=== PATIENT | female | born 1955 ===

== ENCOUNTER → 2020-07-10 08:06 | Outpatient (REF) | payer OTHER, SELFPAY ==
--- NOTE | 2020-07-10 | NM_ITS ---
Lexiscan Myocardial perfusion study Indication: Cardiomyopathy, assess for coronary disease and ischemia Technique: The patient was brought in for a Lexiscan perfusion study on 07/10/2020 and was injected 0.4 mg of Lexiscan intravenously. Within a minute of this injection 25 mCi of sestamibi was given intravenously. Images were obtained using the SPECT gamma camera interlaced with the gating device. Images were obtained in supine position. Resting perfusion study was performed on 07/11/2020. Patient was administered 25 mCi of sestamibi intravenously at rest. Images were then obtained in supine position. Total DLP 136mGy-cm. Images were processed with the software and compared side to side in short axis, horizontal long axis and vertical long axis views. Findings: Raw acquisition was reviewed. The stress perfusion study showed mildly diminished tracer uptake at the apex but otherwise unremarkable. With CT attenuation correction this is still persisting. The gated study shows normal LV systolic function with calculated LVEF of 56%. LV cavity is normal in size. The gated study shows normal wall thickening and contraction of segments. Resting study shows no significant perfusion abnormality. Gating at rest reveals normal wall motion with ejection fraction at 59%. The findings are consistent with mild reversible defect at the apex but with normal contractility. Possibly artifactual. NM/NM pedro perf SPECT rest & str Impression: 1. Myocardial perfusion imaging study shows mild apical reversible defect that could be artifactual as the regional contractility is normal. Less likely to be a small nontransmural infarct. 2. Gated LVEF is 56% during stress and 59% during rest. 3. Transient ischemic dilatation not present. EKG component of the test reported separately.
--- NOTE | 2020-07-10 08:30 | CA_ITS ---
Acquisition Time: 2020-07-10 08:29:17 Total Exercise Time: 00:02:00 Test Indications: Dyspnea Medications: SEE H Protocol: LEXISCAN Max HR: 123 BPM 79% of Pred: 154 BPM Max BP: 124/066 mmHG Max Work Load: 1.0 METS Pharmacological stress test using Lexiscan while sitting and kicking her legs. Pt tolerated well, denies any anginal sx. Occasional PVC's seen after lexiscan. Mild ST depresions seen infriorly and lateraly, ST depressions more pronanced after Lexiscan, however no anginal sx. Nuclear images to follow. Normotensive response to test. Test reviewed with Dr. Joyce. Referred By: Orlando Perkins Overread By: Kirby Bullard
== END ==
LOC: HO.CARD 08:06
PROVIDERS: PCP Internal Medicine; Visit Provider Internal Medicine Cardiovascular Disease
DX: I51.7 Cardiomegaly (principal)
CPT/HCPCS: 78452; 93017; A9500; J0280; J2785

== ENCOUNTER 2020-10-22 13:31 | Outpatient (REF) | payer OTHER, SELFPAY ==
--- NOTE | ~2020-10-22 | MM_ITS ---
EXAMINATION: MM SCREENING DIGITAL BREAST TOMOSYNTHESIS, BILATERAL CLINICAL INFORMATION: Screening. Asymptomatic. The lifetime risk of breast cancer based on the Tyrer-Cuzick Model is 4%. COMPARISON: Mammography: 09/23/2019, 07/04/2016 TECHNIQUE: Digital breast tomosynthesis is performed in both the craniocaudal and mediolateral oblique views along with computer-aided detection (CAD). Synthesized 2D images are generated from the tomosynthesis. FINDINGS: There are scattered areas of fibroglandular density (ACR BI-RADS breast composition Category b). There are no significant masses, abnormal calcifications, or other abnormalities. The axilla and skin contours are unremarkable. No significant changes. MM/MM tomosynthesis screening BI IMPRESSION: No mammographic evidence of malignancy. ASSESSMENT: BI-RADS 1: Negative RECOMMENDATION: Routine annual mammography screening. This patient's information was entered into a reminder system with a target due date for their next mammogram.
== END 2020-10-22 13:32 | disposition home or self-care (01) ==
LOC: HO.MAMMO 13:31
PROVIDERS: Visit Provider Internal Medicine
DX: Z12.31 Encounter for screening mammogram for malignant neoplasm of breast (principal)
CPT/HCPCS: 77063; 77067

== ENCOUNTER 2021-08-21 15:30 | Outpatient (REF) | payer OTHER, SELFPAY ==
--- NOTE | ~2021-08-21 | CT_ITS ---
EXAMINATION: CT CHEST SCREENING CLINICAL INFORMATION: Smoking history. 4 packs per day. 53 year smoking history. COMPARISON: Previous chest CT September 2019 TECHNIQUE: Multidetector volumetric CT imaging of the chest is performed without contrast using low dose technique. Additional 2D coronal and sagittal reformatted images and axial 3D maximum intensity projection (MIP) images are generated on the CT workstation. This CT examination was performed using dose optimization techniques as appropriate, variously including the following: *Automated exposure control *Adjustment of mA and/or kV according to patient size (this includes techniques or standardized protocols for targeted exams where dose is matched to indication/reason for exam; i.e. extremities or head) *Use of iterative reconstruction technique DLP: 51 mGy-cm FINDINGS: LUNGS: There is evidence of emphysema. There is left apical pleural and parenchymal scarring that is stable. Small calcified pulmonary nodules are stable. No new pulmonary nodule is seen. No endobronchial or endotracheal lesion is seen. MEDIASTINUM: There is mild coronary artery and aortic valve calcification. The mediastinum is otherwise normal. PLEURA: There is no pleural effusion. No pleural mass or thickening. AXILLA: No lymphadenopathy. UPPER ABDOMEN: Unremarkable OSSEOUS STRUCTURES: There are degenerative changes of the spine. CT/CT lung screening IMPRESSION: Emphysema. Stable small calcified pulmonary nodules or micronodules. Coronary artery and aortic valve calcification. ASSESSMENT: Lung-RADS category 2: Benign RECOMMENDATION: Annual low-dose chest CT follow-up recommended.
== END 2021-08-21 15:31 | disposition home or self-care (01) ==
LOC: HO.CT 15:30
PROVIDERS: Visit Provider Physician Assistant Medical
DX: Z12.2 Encounter for screening for malignant neoplasm of respiratory organs (principal); F17.210 Nicotine dependence, cigarettes, uncomplicated
CPT/HCPCS: 71271

== ENCOUNTER → 2021-08-29 10:05 | Outpatient (BNVA) | payer OTHER, SELFPAY | PROVIDERS: PCP Internal Medicine; Referring Provider Internal Medicine; Visit Provider Physician Assistant | DX: R15.9 Full incontinence of feces (principal); Z80.0 Family history of malignant neoplasm of digestive organs | CPT/HCPCS: 99202 ==

== ENCOUNTER 2021-10-24 15:29 | Outpatient (REF) | payer OTHER, SELFPAY ==
--- NOTE | ~2021-10-24 | MM_ITS ---
EXAMINATION: MM SCREENING DIGITAL BREAST TOMOSYNTHESIS, BILATERAL CLINICAL INFORMATION: Screening. Asymptomatic. The lifetime risk of breast cancer based on the Tyrer-Cuzick Model is 2.0%. COMPARISON: Mammography: October 22, 2020 and studies dating back to August 22, 2014 TECHNIQUE: Digital breast tomosynthesis is performed in both the craniocaudal and mediolateral oblique views along with computer-aided detection (CAD). Synthesized 2D images are generated from the tomosynthesis. FINDINGS: There are scattered areas of fibroglandular density (ACR BI-RADS breast composition Category b). There are no significant masses, abnormal calcifications, or other abnormalities. MM/MM tomosynthesis screening BI IMPRESSION: There are no significant changes from prior study. ASSESSMENT: BI-RADS 1: Negative RECOMMENDATION: Routine annual mammography screening. This patient's information was entered into a reminder system with a target due date for their next mammogram.
== END 2021-10-24 15:30 | disposition home or self-care (01) ==
LOC: HO.MAMMO 15:29
PROVIDERS: PCP Internal Medicine; Visit Provider Internal Medicine
DX: Z12.31 Encounter for screening mammogram for malignant neoplasm of breast (principal)
CPT/HCPCS: 77063; 77067

== ENCOUNTER 2021-12-27 10:00 | Day surgery (SDC) | payer OTHER, SELFPAY ==
[2021-12-20 10:58] VITALS: BMI 27.8
--- NOTE | 2021-12-26 13:40 | P.CONAN_ITS ---
Documented by User: Cindy Ascencio NP 12/26/21 13:41 HPI - Anesthesia Eval Consult details Narrative: 66yo F for Colonoscopy PMFSH Active Problems Active Problems: All Active Problems (Updated 12/20/21 @ 10:52 by Lilia Molina, EUSEBIO) Frequent fecal incontinence (Acute) Diabetes (Acute) HTN (hypertension) (Acute) Dyslipidemia (Acute) Anxiety (Acute) Family history of colon cancer (Acute) Past Medical History Medical History COPD (chronic obstructive pulmonary disease) Diabetes Elevated cholesterol HTN (hypertension) Osteoporosis PVD (peripheral vascular disease) Family History Family History (Updated 08/29/21 @ 10:41 by Trisha Young PA-C) Brother Colon cancer Surgical History Surgical History H/O colonoscopy History of bunionectomy History of hysterectomy History of pubovaginal sling Social History Social History Household Members: None Alcohol intake: never Patient Tobacco Use Status: Current everyday Tobacco user Tobacco use type: Cigarette Cigarettes Per Day: 15 Advance Directives: No Advance Directives Information Provided: Yes Meds Allergies Allergy/AdvReac Type Severity Reaction Status Date / Time ciprofloxacin [From CIPRO] Allergy Severe ANAPHYLAXIS Unverified 12/20/21 10:44 Home Medications Medication Instructions Recorded Confirmed Last Taken Type aspirin 81 mg tablet,delayed 81 mg PO DAILY 08/29/21 12/20/21 Unknown History release atorvastatin 40 mg tablet 40 mg PO BEDTIME 08/29/21 12/20/21 Unknown History calcium carbonate 600 mg-vitamin 1 tab PO BEDTIME 08/29/21 12/20/21 Unknown History D3 10 mcg (400 unit) tablet cilostazol 50 mg tablet 50 mg PO BID 08/29/21 12/20/21 Unknown History fluoxetine 40 mg capsule 40 mg PO BEDTIME 08/29/21 12/20/21 Unknown History fluticasone 250 mcg-salmeterol 50 1 ea inhalation BID 08/29/21 12/20/21 Unknown History mcg/dose blistr powdr for inhalation gabapentin 300 mg capsule 300 mg PO DAILY 08/29/21 12/20/21 Unknown History hydralazine 25 mg tablet 25 mg PO BID 08/29/21 12/20/21 Unknown History hydroxyzine pamoate 25 mg capsule 25 mg PO TID 08/29/21 12/20/21 Unknown History insulin glargine 100 unit/mL 10 unit subcut BEDTIME 08/29/21 12/20/21 Unknown History subcutaneous solution (Lantus U-100 Insulin) insulin syringe-needle U-100 1/2 #10 ea 08/29/21 Unknown History mL 31 gauge x 15/64 (BD Veo Insulin Syringe Ultra-Fine) lisinopril 40 mg tablet 40 mg PO DAILY 08/29/21 12/20/21 Unknown History metformin 1,000 mg tablet 1,000 mg PO BID 08/29/21 12/20/21 Unknown History metoprolol tartrate 25 mg tablet 25 mg PO BID 08/29/21 12/20/21 Unknown History nitrofurantoin 1 cap PO Q12H 08/29/21 12/20/21 Unknown History monohydrate/macrocrystals 100 mg capsule omeprazole 20 mg capsule,delayed 20 mg PO DAILY 08/29/21 12/20/21 Unknown History release sitagliptin 50 mg tablet (Januvia) 50 mg PO DAILY 08/29/21 12/20/21 Unknown History umeclidinium 62.5 mcg/actuation 1 inh inhalation DAILY 08/29/21 12/20/21 Unknown History blister powder for inhalation (Incruse Ellipta) Exam Exam Date and Time: December 26, 2021 1340 Height,Weight and Vital Signs: Height 5 ft 5 in Weight 76 kg Assessment and Plan Assessment Anesthesia Assessment: Chart Reviewed Documented by User: Chelsea Birch MD 12/27/21 10:28 [facility] Past Medical History Medical History COPD (chronic obstructive pulmonary disease) Diabetes Elevated cholesterol HTN (hypertension) Osteoporosis PVD (peripheral vascular disease) Family History Family History (Updated 08/29/21 @ 10:41 by Trisha Young PA-C) Brother Colon cancer Family history of problems with anesthesia: No Surgical History Surgical History H/O colonoscopy History of bunionectomy History of hysterectomy History of pubovaginal sling History of Problems with Anesthesia: No Social History Social History Household Members: None Alcohol intake: never Patient Tobacco Use Status: Current everyday Tobacco user Tobacco use type: Cigarette Cigarettes Per Day: 15 Advance Directives: No Advance Directives Information Provided: Yes Meds Allergies Allergy/AdvReac Type Severity Reaction Status Date / Time ciprofloxacin [From CIPRO] Allergy Severe ANAPHYLAXIS Unverified 12/20/21 10:44 Home Medications Medication Instructions Recorded Confirmed Last Taken Type aspirin 81 mg tablet,delayed 81 mg PO DAILY 08/29/21 12/20/21 Unknown History release atorvastatin 40 mg tablet 40 mg PO BEDTIME 08/29/21 12/20/21 Unknown History calcium carbonate 600 mg-vitamin 1 tab PO BEDTIME 08/29/21 12/20/21 Unknown History D3 10 mcg (400 unit) tablet cilostazol 50 mg tablet 50 mg PO BID 08/29/21 12/20/21 Unknown History fluoxetine 40 mg capsule 40 mg PO BEDTIME 08/29/21 12/20/21 Unknown History fluticasone 250 mcg-salmeterol 50 1 ea inhalation BID 08/29/21 12/20/21 Unknown History mcg/dose blistr powdr for inhalation gabapentin 300 mg capsule 300 mg PO DAILY 08/29/21 12/20/21 Unknown History hydralazine 25 mg tablet 25 mg PO BID 08/29/21 12/20/21 Unknown History hydroxyzine pamoate 25 mg capsule 25 mg PO TID 08/29/21 12/20/21 Unknown History insulin glargine 100 unit/mL 10 unit subcut BEDTIME 08/29/21 12/20/21 Unknown History subcutaneous solution (Lantus U-100 Insulin) insulin syringe-needle U-100 1/2 #10 ea 08/29/21 Unknown History mL 31 gauge x 15/64 (BD Veo Insulin Syringe Ultra-Fine) lisinopril 40 mg tablet 40 mg PO DAILY 08/29/21 12/20/21 Unknown History metformin 1,000 mg tablet 1,000 mg PO BID 08/29/21 12/20/21 Unknown History metoprolol tartrate 25 mg tablet 25 mg PO BID 08/29/21 12/20/21 Unknown History nitrofurantoin 1 cap PO Q12H 08/29/21 12/20/21 Unknown History monohydrate/macrocrystals 100 mg capsule omeprazole 20 mg capsule,delayed 20 mg PO DAILY 08/29/21 12/20/21 Unknown History release sitagliptin 50 mg tablet (Januvia) 50 mg PO DAILY 08/29/21 12/20/21 Unknown History umeclidinium 62.5 mcg/actuation 1 inh inhalation DAILY 08/29/21 12/20/21 Unknown History blister powder for inhalation (Incruse Ellipta) Exam Airway Mallampati Class: II TM Dist: >3cm Neck ROM: Full Denture: Upper and Lower Heart: rrr Lungs: cta Assessment and Plan Assessment Anesthesia Assessment: Anesthesia Plan Discussed and Chart Reviewed Final Anesthetic Review Family History of Problems with Anesthesia: No History of Problems with Anesthesia: No NPO: Yes ASA Class: III Final Preanesthetic Review: No Changes in Pt Med Stat, Meds/Allgs Chart Reviewed and Consent Obtained/Reviewed Patient Risk: Intermediate Procedure Risk: Intermediate Anesthetic Plan Anesthetic Plan: MAC: Disposition: Standard PACU
[2021-12-27 10:22] LABS: Glucose, Whole Blood 144 mg/dL (60-115)
[2021-12-27] MEDS: Lactated Ringers 1,000 ML 100 ML IVCONT (10:25)
[2021-12-27 10:26] VITALS: BP 164/60; PULSE 78; RESP 18; TEMP 36.2; O2SAT 96; BMI 28.3
--- NOTE | 2021-12-27 10:28 | MHC.SHP ---
Pre-Procedural Eval Section A Date of Service: 12/27/21 The patient is an INPATIENT: No The History & Physical has been completed within 30 days and I have reviewed it.: No Section B Chief Complaint: Screen, FH of colon cancer, FI Details of Present Illness: Colon cancer screening, fecal incontinence, family history of colon cancer Relevant Family History (Specify if Yes): Yes Relevant Social History: Tobacco Use Present Medications: see Short Stay Collaborative assessment Medical History: Significant History (Anxiety Family history of colon cancer) History of Previous Operations: Relevant previous surgery/procedure and date(s) (History of hysterectomy) Allergies: Allergies Allergy/AdvReac Type Severity Reaction Status Date / Time ciprofloxacin [From CIPRO] Allergy Severe ANAPHYLAXIS Unverified 12/20/21 10:44 Review of Systems Sugical H&P ROS: Negative: Constitution, Cardiovascular and Respiratory and Yes, Specify: Gastrointestinal (fecal incontinence) Exam Surgical H&P Exam: Normal: Heart, Normal: Lungs, Normal: Extremities and Normal: Abdomen Plan Diagnosis/Plan: Unchanged I have reviewed the history and physical and performed a pertinent physical examination on my patient. No changes have occurred unless specified.
--- NOTE | 2021-12-27 11:30 | PM.OP ---
Brief Operative Note Date of Service: 12/27/21 Pre-op diagnosis: Colon cancer screen, family history of colon, fecal incontinence Post-op diagnosis: other (Colon polyps, diverticulosis, hemorrhoids, lax anal sphincter) Procedure: COLONOSCOPY TILL CECUM WITH BIOPSIES, SNARE POLYPECTOMY AND SUBMUCOSAL INJECTION Consent: Indications for the procedure and potential complications of bleeding, perforation, reaction to medications and missed diagnosis were discussed with the patient and informed consent was obtained. Instrument: Olympus PCF H 190 L variable stiffness pediatric colonoscope Monitoring: Vital signs and clinical assessment, intermittent blood pressure monitoring, continuous EKG monitoring, Pulse oximetry and Carbon Dioxide monitoring were done throughout the procedure. Colon withdrawl time was 24 minutes. Procedure: The patient was placed in the left lateral decubitis position and pre-procedure medications were administered. After a digital rectal examination of the ano-rectum, the video colonoscope was inserted into the rectum and advanced through the colon to the cecum. The colonoscope was slowly withdrawn in a retrograde panoramic fashion and the colon mucosa was carefully examined including a retroflexed view of the rectum. Findings and interventions are described below. Procedure Difficulty: Without difficulty There was excessive spasm in the colon Findings: Terminal Ileum: Not evaluated Cecum: Normal Ascending Colon: A 2 - 2.5 cms sessile polyp at 90 cms - removed with a hot snare and polypectomy site was marked by jero ink. Scattered moderate diverticulosis throughout the colon. Transverse Colon: Scattered moderate diverticulosis throughout the colon. Descending Colon: Scattered moderate diverticulosis throughout the colon. Sigmoid Colon: Severe diverticulosis with luminal narrowing Rectum: Normal Ano-rectum: Moderate internal hemorrhoids Lax anal sphincter on rectal exam Colon preparation: Good after some irrigation Impression and Post Procedure Diagnosis: Colonoscopy Findings: One medium sized polyp removed. Random biopsies were obtained from the colon to check for microscopic colitis Moderate diverticulosis seen in the entire colon Moderate hemorrhoids on retroflexed exam. Lax anal sphincter on rectal exam Plan: Await pathology results [place] of a fibre supplement for diverticulosis Patient has an appointment on 01/09/22 in the GI Clinic with GERALDINE Reyna. If she continues to have fecal incontinence, she can be referred [place] [facility] with biofeedback. Repeat Colonoscopy interval based on path results - in 1 years if polyps are adenomatous to check polypectomy site in the AC. Above findings were reviewed with the patient and colon polyps and diverticulosis handouts were given in the discharge area Surgeon: Mario Lowe MD Anesthesia: MAC (Dr Escamilla) Was an Investigation Division Captain used for this Procedure?: Yes Investigation Division Captain: Williams Shultz Estimated blood loss (mL): 0 Pathology: other ( A- RIGHT COLON BXS R/O MICROSCOPIC COLITIS B- ASCENDING COLON POLYP AT 90CM C- LEFT COLON BXS R/O MICROSCOPIC COLITIS) Condition: stable Disposition: PACU
[2021-12-27 12:11] VITALS: BP 146/66; PULSE 78; RESP 16; TEMP 36.7; O2SAT 96
[2021-12-27 12:26] VITALS: BP 151/74; PULSE 79; RESP 16; TEMP 36.7; O2SAT 95
--- NOTE | 2021-12-30 18:04 | P.OP_ITS ---
Operative Note Operative Note Date of Service: 12/27/21 Narrative: Pre-op diagnosis: Colon cancer screen, family history of colon, fecal incontinence Post-op diagnosis:?other (Colon polyps, diverticulosis, hemorrhoids, lax anal sphincter) Procedure: COLONOSCOPY TILL CECUM WITH BIOPSIES, SNARE POLYPECTOMY AND SUBMUCOSAL INJECTION Consent: Indications for the procedure and potential complications of bleeding, perforation, reaction to medications and missed diagnosis were discussed with the patient and informed consent was obtained. Instrument: Olympus PCF H 190 L variable stiffness pediatric colonoscope Monitoring: Vital signs and clinical assessment, intermittent blood pressure monitoring, continuous EKG monitoring, Pulse oximetry and Carbon Dioxide monitoring were done throughout the procedure. Colon withdrawl time was 24 minutes. Procedure: The patient was placed in the left lateral decubitis position and pre-procedure medications were administered. After a digital rectal examination of the ano-rectum, the video colonoscope was inserted into the rectum and advanced through the colon to the cecum. The colonoscope was slowly withdrawn in a retrograde panoramic fashion and the colon mucosa was carefully examined including a retroflexed view of the rectum. Findings and interventions are described below. Procedure Difficulty: Without difficulty There was excessive spasm in the colon Findings: Terminal Ileum: Not evaluated Cecum:? Normal Ascending Colon:? A 2 - 2.5 cms sessile polyp at 90 cms - removed with a hot snare and polypectomy site was marked by jero ink. Scattered moderate diverticulosis throughout the colon. Transverse Colon:? Scattered moderate diverticulosis throughout the colon. Descending Colon:? Scattered moderate diverticulosis throughout the colon. Sigmoid Colon:? Severe diverticulosis with luminal narrowing Rectum:? Normal Ano-rectum:? Moderate internal hemorrhoids Lax anal sphincter on rectal exam Colon preparation:? Good after some irrigation Impression and Post Procedure Diagnosis: Colonoscopy Findings: One medium sized polyp removed. Random biopsies were obtained from the colon to check for microscopic colitis Moderate diverticulosis seen in the entire colon Moderate hemorrhoids on retroflexed exam. Lax anal sphincter on rectal exam Plan: Await pathology results [place] of a fibre supplement for diverticulosis Patient has an appointment on 01/09/22 in the GI Clinic with GERALDINE Reyna. If she continues to have fecal incontinence, she can be referred to [facility] [place] for anorectal manometry with biofeedback. Repeat Colonoscopy interval based on path results - in 1 years if polyps are adenomatous to check polypectomy site in the AC. Above findings were reviewed with the patient and colon polyps and diverticulosis handouts were given in the discharge area Surgeon: Mario Lowe MD Anesthesia:?MAC (Dr Escamilla) Was an Distillery Miller Helper used for this Procedure?:?Yes Distillery Miller Helper:?Williams Shultz Estimated blood loss (mL):?0 Pathology:?other ( A- RIGHT COLON BXS R/O MICROSCOPIC COLITIS? B- ASCENDING COLON POLYP AT 90CM? C- LEFT COLON BXS? R/O MICROSCOPIC COLITIS) Condition:?stable Disposition:?PACU
== END 2021-12-27 12:51 | disposition home or self-care (01) ==
PROVIDERS: PCP Internal Medicine; Visit Provider Internal Medicine Gastroenterology
PROC: 0DJD8ZZ Inspection of Lower Intestinal Tract, Via Natural or Artificial Opening Endoscopic (ICD-10-PCS; CPT 45378; principal; 2021-12-27 11:10)
DX: Z12.11 Encounter for screening for malignant neoplasm of colon (principal); Z80.0 Family history of malignant neoplasm of digestive organs; R15.9 Full incontinence of feces; R15.2 Fecal urgency; D12.2 Benign neoplasm of ascending colon; K63.89 Other specified diseases of intestine; K57.30 Diverticulosis of large intestine without perforation or abscess without bleeding; K64.8 Other hemorrhoids; F41.1 Generalized anxiety disorder; I10 Essential (primary) hypertension; E11.9 Type 2 diabetes mellitus without complications; Z79.4 Long term (current) use of insulin; Z79.51 Long term (current) use of inhaled steroids; Z88.1 Allergy status to other antibiotic agents; Z79.899 Other long term (current) drug therapy; F17.210 Nicotine dependence, cigarettes, uncomplicated
CPT/HCPCS: 45385; 45380; 45381; 82947; 88305

== ENCOUNTER 2022-01-02 10:32 | Outpatient (REF) | payer OTHER, SELFPAY ==
--- NOTE | ~2022-01-02 | MM_ITS ---
EXAMINATION: BONE DENSITOMETRY CLINICAL INDICATION: Menopausal. COMPARISON: Previous BD dated 09/23/2019 and baseline BD dated 08/22/2014. TECHNIQUE: Using a STEARCLEAR DXA System (software version: 13.1) manufactured by [employer], dual-energy x-ray absorptiometry was performed of the lumbar spine and left hip. The images are of good technical quality. Summary results are attached. FINDINGS: AP SPINE L1-L4: Current: BMD 0.910 g/cm2, Z-score -0.8, T-score -2.3, osteopenia, 2.0% decrease from previous, 1.0% decrease from baseline (<5% change is not significant). Prior: BMD 0.929 g/cm2. Baseline: BMD 0.919 g/cm2. LEFT FEMUR, NECK: Current: BMD 0.818 g/cm2, Z-score -0.1, T-score -1.6, osteopenia. Prior: BMD 0.816 g/cm2. Baseline: BMD 0.767 g/cm2. LEFT FEMUR, TOTAL: Current: BMD 0.756 g/cm2, Z-score -0.8, T-score -2.0, osteopenia, 1.8% decrease from previous, 4.7% increase from baseline (<5% change is not significant). Prior: BMD 0.770 g/cm2. Baseline: BMD 0.722 g/cm2. IDENTIFIED RISK FACTORS: Early menopause, secondary osteoporosis, hysterectomy, bilateral oophorectomy, height loss, history of fracture (adult), tobacco use (current smoker). HISTORY OF FRACTURE: Wrist. MEDICATIONS: Calcium supplements or multivitamin, vitamin D. MM/XR DEXA axial skeleton IMPRESSION: 1. DIAGNOSIS: Osteopenia based on the lowest T-score value of -2.3 in the lumbar spine applying World Health Organization criteria. 2. 10-YEAR FRACTURE RISK PREDICTION, FRAX: Major osteoporotic fracture (clinical spine, forearm, hip or shoulder) 9.3%. Hip fracture 1.9%. 3. Treatment Recommendations: NOF guidelines recommend consideration for treatment in postmenopausal women and men age 50 and older presenting with the following: -A hip or vertebral (clinical or morphometric) fracture. -T-score less than or equal to -2.5 at the femoral neck or spine after appropriate evaluation to exclude secondary causes. -Low bone mass at the hip or spine and a 10-year fracture probability by FRAX of greater than or equal to 3% for hip fracture or greater than or equal to 20% for major osteoporotic fracture based on the [place] adapted WHO algorithm. 4. Other Recommendations: All treatment decisions require clinical judgment and consideration of individual patient factors, including patient preferences, comorbidities, previous drug use, risk factors not captured in the FRAX model (e.g. frailty, falls, vitamin D deficiency, increased bone turnover, interval significant decline in bone density) and possible under or overestimation of fracture risk by FRAX. Additional medical evaluation for secondary cause of low bone mineral density may be appropriate. FUTURE SCAN RECOMMENDATION: People with diagnosed cases of osteoporosis or at high risk for fracture should have regular bone mineral density tests. For patients eligible for Medicare, routine testing is allowed once every 2 years. The testing frequency can be increased to one year for patients who have rapidly progressing disease, those who are receiving or discontinuing medical therapy to restore bone mass, or have additional risk factors.
== END 2022-01-02 10:33 | disposition home or self-care (01) ==
LOC: HO.MAMMO 10:32
PROVIDERS: Visit Provider Internal Medicine
DX: Z13.820 Encounter for screening for osteoporosis (principal); M81.0 Age-related osteoporosis without current pathological fracture; Z78.0 Asymptomatic menopausal state
CPT/HCPCS: 77080

== ENCOUNTER → 2022-01-09 09:04 | Outpatient (BNVA) | payer OTHER, SELFPAY | PROVIDERS: PCP Internal Medicine; Visit Provider Physician Assistant | DX: D12.2 Benign neoplasm of ascending colon (principal); K63.89 Other specified diseases of intestine; K57.30 Diverticulosis of large intestine without perforation or abscess without bleeding; K64.9 Unspecified hemorrhoids; R15.9 Full incontinence of feces; Z98.890 Other specified postprocedural states | CPT/HCPCS: 99212 ==

== ENCOUNTER 2022-01-28 08:00 | Outpatient (REF) | payer OTHER, SELFPAY ==
--- NOTE | 2022-01-28 | PFT_ITS ---
FLOWS: FEV1 67% of predicted at 1.65 L. FVC 100% of predicted at 3.14 L. FEV1 to FVC ratio of 0.52. No bronchodilator response except in small to medium airways. LUNG VOLUMES: Total lung capacity 106% of predicted at 5.51 L. Residual volume 114% of predicted at 2.51 L. Slow vital capacity 99% of predicted at 3.00 L. Expiratory reserve volume 118% of predicted at 0.92 L. Diffusion capacity is moderately decreased. IMPRESSION: Moderate obstructive ventilatory defect with no bronchodilator response except in small to medium airways. Decreased diffusion capacity suggests emphysema. Filipe Kwan MD AP/MODL / [id number]
== END 2022-01-28 08:01 | disposition home or self-care (01) ==
LOC: HO.RESP 08:00
PROVIDERS: PCP Internal Medicine; Visit Provider Internal Medicine
DX: J44.9 Chronic obstructive pulmonary disease, unspecified (principal); F17.200 Nicotine dependence, unspecified, uncomplicated; Z71.6 Tobacco abuse counseling
CPT/HCPCS: 94060; 94727; 94729; 99202

== ENCOUNTER → 2022-06-09 15:36 | Outpatient (BNVA) | payer OTHER, SELFPAY | PROVIDERS: PCP Internal Medicine; Visit Provider Internal Medicine | DX: J44.9 Chronic obstructive pulmonary disease, unspecified (principal); F17.210 Nicotine dependence, cigarettes, uncomplicated | CPT/HCPCS: 99212 ==

== ENCOUNTER → 2022-10-09 09:56 | Outpatient (BNVA) | payer OTHER, SELFPAY | PROVIDERS: PCP Registered Nurse; Visit Provider Internal Medicine | DX: J44.9 Chronic obstructive pulmonary disease, unspecified (principal); F17.210 Nicotine dependence, cigarettes, uncomplicated | CPT/HCPCS: 99212 ==

== ENCOUNTER 2022-10-14 10:02 | Outpatient (REF) | payer OTHER, SELFPAY ==
--- NOTE | ~2022-10-14 | CT_ITS ---
EXAMINATION: CT CHEST SCREENING CLINICAL INFORMATION: Current smoker. 54 pack year history. COMPARISON: Previous chest CT most recent August 2021 TECHNIQUE: Multidetector volumetric CT imaging of the chest is performed without contrast using low dose technique. Additional 2D coronal and sagittal reformatted images and axial 3D maximum intensity projection (MIP) images are generated on the CT workstation. This CT examination was performed using dose optimization techniques as appropriate, variously including the following: *Automated exposure control *Adjustment of mA and/or kV according to patient size (this includes techniques or standardized protocols for targeted exams where dose is matched to indication/reason for exam; i.e. extremities or head) *Use of iterative reconstruction technique DLP: 49 mGy-cm FINDINGS: LUNGS: There is evidence of emphysema. There is mild left apical pleural and parenchymal scarring. There are are heterogeneous small areas of increased attenuation and increased peripheral interstitial markings There are small calcified pulmonary nodules that are stable. There is a irregularly-shaped heterogeneous area in the peripheral or subpleural medial left lower lobe adjacent to the spine. Axial image 306 series 5. This is difficult to measure due to irregular shape. This measures 6 x 8mm based on central solid component and measures up to 1.7 cm in AP dimension sagittal reconstructed image 52 and axial image 306 series 5. This is is gradually increasing in density and size compared to previous exams from 2019 and 2021. No endobronchial or endotracheal lesion. MEDIASTINUM: The mediastinum is normal. CORONARY ARTERY CALCIFICATION: Mild PLEURA: There is no pleural effusion. No pleural mass or thickening. AXILLA: No lymphadenopathy. UPPER ABDOMEN: Atherosclerotic disease. OSSEOUS STRUCTURES: Healing right anterior fifth rib fracture. CT/CT lung screening IMPRESSION: Emphysema and probable mild interstitial disease. Interval increase in size and density of irregularly-shaped parenchymal density in the medial left lower lobe. PET/CT scan or tissue sampling recommended. Small stable calcified pulmonary nodules. ASSESSMENT: Lung-RADS category 4B: Suspicious RECOMMENDATION: PET/CT scan or tissue sampling recommended.
== END 2022-10-14 10:03 | disposition home or self-care (01) ==
LOC: HO.CT 10:02
PROVIDERS: PCP Registered Nurse; Visit Provider Physician Assistant Medical
DX: Z12.2 Encounter for screening for malignant neoplasm of respiratory organs (principal); F17.210 Nicotine dependence, cigarettes, uncomplicated
CPT/HCPCS: 71271

== ENCOUNTER → 2022-11-07 09:36 | Outpatient (BNVA) | payer OTHER, SELFPAY | PROVIDERS: PCP Registered Nurse; Visit Provider Surgery | DX: R91.1 Solitary pulmonary nodule (principal); F17.210 Nicotine dependence, cigarettes, uncomplicated; Z71.6 Tobacco abuse counseling | CPT/HCPCS: 99202 ==

== ENCOUNTER 2022-11-25 11:39 | Outpatient (REF) | payer OTHER, SELFPAY ==
--- NOTE | 2022-11-25 12:41 | PFT_ITS ---
Forced vital capacity is 105%, FEV1 62%, FEV1/FVC ratio 47. XHF51-51 is 22%. MVV 64%. Post bronchodilator therapy, there is a slight improvement in FEV1 and XNL45-54. Total lung capacity 101%. Residual volume 91%. Diffusion capacity 53%. CONCLUSION: Moderately severe obstructive airway disorder. There is only minimal improvement after bronchodilator therapy. Clinical correlation is recommended. MD ROE James/JESUS / [id number]
== END 2022-11-25 11:40 | disposition home or self-care (01) ==
LOC: HO.RESP 11:39
PROVIDERS: PCP Registered Nurse; Visit Provider Surgery
DX: R91.1 Solitary pulmonary nodule (principal)
CPT/HCPCS: 94010; 94727; 94729

== ENCOUNTER 2022-12-02 13:15 | Outpatient (REF) | payer OTHER, SELFPAY ==
--- NOTE | ~2022-12-02 | PE_ITS ---
EXAMINATION: Fluorine-18 FDG PET/CT Scan CLINICAL INDICATION: Initial treatment management. Solitary pulmonary lung nodule at medial left lower lobe seen on recent lung cancer screening CT of the chest done on 10/14/2022. PROCEDURE: 65 minutes following the intravenous administration of 17.0 mCi of fluorine 18 FDG, images from the base of the skull to the mid thighs were obtained using a combined PET/CT scanner with CT scan based attenuation correction. No intravenous contrast was administered. Transverse, coronal, sagittal, and volume reconstruction projections were obtained. The patient's blood glucose as determined by a finger stick, was 125 mg/dl immediately prior to injection. The radiotracer was injected intravenously through right antecubital superficial vein, without any complications. Total CT exam dose-length product 631.48 mGy-cm * These CT images were obtained using dose optimization techniques as appropriate, variously including the following: Automated exposure control * Adjustment of mA and/or kV according to patient size (this includes techniques or standardized protocols for targeted exams where dose is matched to indication/reason for exam; i.e. extremities or head) * Use of iterative reconstruction technique COMPARISON: CT scan of the chest done on 08/21/2021 and 10/14/2022. FINDINGS: NECK AND VISUALIZED HEAD: No FDG avid focal disease. Specifically, no FDG avid soft tissue mass or cervical lymphadenopathy. THORAX: The index irregular ill-defined somewhat linear peripheral subpleural opacity seen at left lower lobe of the lung posteromedially does not show any FDG avidity. Significant emphysematous disease predominantly involving both upper lobes and nonspecific non-FDG avid groundglass opacity at left upper lobe of the lung involving the posterior segment abutting the left major fissure is seen. There are no FDG avid mediastinal and/or hilar, axillary or internal mammary lymphadenopathy or pleural or pericardial effusion. ABDOMEN AND PELVIS: No FDG avid focal liver or splenic or adrenal disease. The gallbladder, biliary tree and pancreas appear unremarkable. Both kidneys, both renal pelvicalyceal system, both ureters and the urinary bladder appear unremarkable. Physiologic radiotracer activity is present within the large bowel. Colonic diverticulosis is present. No FDG avid retroperitoneal, mesenteric, pelvic and/or inguinal lymphadenopathy. MUSCULOSKELETAL: No suspicious FDG avid disease. Incidental note is made of mild FDG avidity involving healing rib fracture at the anterolateral aspect of the right fifth rib (245/698). VASCULAR: Calcific atherosclerotic disease of the aorta and its branches including calcific coronary arterial atherosclerotic disease. No evidence of aneurysm. SUV max OF MEDIASTINAL BLOOD POOL: 2.2 SUV max OF LIVER: 2.6 PET/PET CT fusion skull to thigh IMPRESSION: 1. The index clinically known irregular ill-defined somewhat linear peripheral subpleural opacity seen on the most recent prior CT of the chest done on 10/14/2022 is not FDG avid. No evidence of any additional FDG avid lung nodules or mediastinal or hilar or axillary or internal mammary lymphadenopathy or pleural or pericardial effusion or FDG avid extrathoracic disease. Please note that some primary lung malignancies such as adenocarcinoma in situ, minimally invasive adenocarcinoma, well-differentiated adenocarcinoma, and low-grade carcinoids may not be FDG avid. 2. Nonspecific subtle groundglass airspace disease is present at the left upper lobe of the lung involving the posterior segment abutting the left major fissure, appear new since the prior study dated 10/14/2022. Follow-up evaluation to document resolution and/or stability is recommended. 3. Healing rib fracture involving the right anterior fifth rib. 4. Calcific atherosclerotic disease of the aorta and is branches including calcific coronary arterial disease.
== END 2022-12-02 13:16 | disposition home or self-care (01) ==
LOC: HO.PET 13:15
PROVIDERS: PCP Registered Nurse; Visit Provider Surgery
DX: Z13.89 Encounter for screening for other disorder (principal)

== ENCOUNTER 2023-01-02 14:48 | Outpatient (REF) | payer OTHER, SELFPAY ==
--- NOTE | ~2023-01-02 | MM_ITS ---
EXAMINATION: MM SCREENING DIGITAL BREAST TOMOSYNTHESIS, BILATERAL CLINICAL INFORMATION: Screening. Asymptomatic. The lifetime risk of breast cancer based on the Tyrer-Cuzick Model is 2.1%. COMPARISON: Mammography: This study is compared with the prior mammograms dating back to September 2019. TECHNIQUE: Digital breast tomosynthesis is performed in both the craniocaudal and mediolateral oblique views along with computer-aided detection (CAD). Synthesized 2D images are generated from the tomosynthesis. FINDINGS: There are scattered areas of fibroglandular density (ACR BI-RADS breast composition Category b). There are no significant masses, abnormal calcifications, or other abnormalities. MM/MM tomosynthesis screening BI IMPRESSION: No mammographic evidence of malignancy. ASSESSMENT: BI-RADS BI-RADS 1 - Negative RECOMMENDATION: Routine annual mammography screening. 1 year F/U This patient's information was entered into a reminder system with a target due date for their next mammogram.
== END 2023-01-02 14:49 | disposition home or self-care (01) ==
LOC: HO.MAMMO 14:48
PROVIDERS: PCP Registered Nurse; Visit Provider Registered Nurse
DX: Z12.31 Encounter for screening mammogram for malignant neoplasm of breast (principal); R91.1 Solitary pulmonary nodule; F17.200 Nicotine dependence, unspecified, uncomplicated; Z71.6 Tobacco abuse counseling
CPT/HCPCS: 77063; 77067; 99212

== ENCOUNTER → 2023-01-02 15:00 | Outpatient (BNV) | payer OTHER, SELFPAY | PROVIDERS: PCP Registered Nurse; Visit Provider Radiology Diagnostic Radiology | DX: Z12.31 Encounter for screening mammogram for malignant neoplasm of breast (principal) | CPT/HCPCS: 77063; 77067 ==

== ENCOUNTER 2023-02-09 08:07 | Outpatient (REF) | payer OTHER, SELFPAY ==
--- NOTE | ~2023-02-09 | CT_ITS ---
EXAMINATION: CT CHEST WITHOUT CONTRAST CLINICAL INFORMATION: Solitary pulmonary nodule. COMPARISON: PET/CT 12/02/2022: The index irregular ill-defined somewhat linear peripheral subpleural opacity seen at left lower lobe of the lung posteromedially does not show any FDG avidity. CT chest 10/14/2022: Interval increase in size and density of irregularly-shaped parenchymal density in the medial left lower lobe. PET/CT scan or tissue sampling recommended. TECHNIQUE: Multidetector volumetric CT imaging of the chest was done. Axial MIP volume rendering provided. Sagittal and coronal reformatted images were obtained. This CT examination was performed using dose optimization techniques as appropriate, variously including the following: *Automated exposure control *Adjustment of mA and/or kV according to patient size (this includes techniques or standardized protocols for targeted exams where dose is matched to indication/reason for exam; i.e. extremities or head) *Use of iterative reconstruction technique DLP: 140 mGy-cm FINDINGS: LUNGS: Again seen is an irregular opacity in the left lower lobe abutting the mediastinum which appears unchanged when compared to the prior study study with the largest AP dimension measuring about 1.7 cm (7:287 compare prior 5:304). This abnormality had no FDG activity on the recent PET/CT. Scattered calcified pulmonary granulomas and some noncalcified micronodules are unchanged. MEDIASTINUM: Heart size normal. No mediastinal or hilar lymphadenopathy is seen. The thyroid is unremarkable. CORONARY ARTERY CALCIFICATION: Present. PLEURA: There is no pleural effusion. No pleural mass or thickening. AXILLA: There are small axillary lymph nodes present but no adenopathy. UPPER ABDOMEN: Unremarkable. OSSEOUS STRUCTURES: Unremarkable. CT/CT chest wo IV con IMPRESSION: The irregular opacity in the left lower lobe abutting the mediastinum is unchanged when compared to the 12/02/2022 study. This had no FDG activity on the recent PET/CT. Other findings are unchanged. Fleischner guidelines were followed. Followup CT scan in one year is recommended.
== END 2023-02-09 08:08 | disposition home or self-care (01) ==
LOC: HO.CT 08:07
PROVIDERS: Visit Provider Surgery
DX: R91.1 Solitary pulmonary nodule (principal)
CPT/HCPCS: 71250

== ENCOUNTER 2023-04-08 11:33 | Outpatient (AMB) | payer OTHER, SELFPAY ==
[2023-04-08 11:36] VITALS: BP 142/60; PULSE 72; O2SAT 97; BMI 29.0
--- NOTE | 2023-04-08 11:36 | MHC.OFFVIS ---
Intake Vital Signs 04/08/23 11:36 Height 5 ft 5 in Weight 174 lb BMI 29.0 BP 142/60 H Blood Pressure Location Rt brachial Position Sitting Pulse 72 Pulse Source Pulse Oximeter Pulse Oximetry (%) 97 Oxygen Delivery Method Nasal Cannula Oxygen Flow Rate 1 Intake Visit Reasons: COPD Intake Note: pt is here for follow up and is post surgery by Dr. Harris, pt is able to walk around the house, was discharged with O2 for exertion but only on 1 liter, but pt does not notice her O2 low. pt has not smoked since day before surgery is using the nicotine patch. Allergies ciprofloxacin [From CIPRO] Allergy (Severe, Verified 04/08/23 11:55) ANAPHYLAXIS Medication List - Last Reconciled 04/08/23 by Naomi Floyd MD albuterol sulfate 90 mcg/actuation 2 puffs inhalation Q4-6H PRN 30 days aspirin 81 mg PO DAILY atorvastatin 40 mg PO BEDTIME bisacodyl (Dulcolax (bisacodyl)) 10 mg (2 x 5 mg) PO ONCE 1 day calcium carbonate-vitamin D3 600 mg-10 mcg (400 unit) 1 tab PO BEDTIME cilostazol 50 mg PO BID fluoxetine 40 mg PO BEDTIME fluticasone propion-salmeterol 500-50 mcg/dose (Advair Diskus) 1 inh inhalation BID 30 days gabapentin 300 mg PO DAILY hydralazine 25 mg PO BID hydroxyzine pamoate 25 mg PO TID insulin glargine (Lantus U-100 Insulin) 10 units subcut BEDTIME insulin syringe-needle U-100 (BD Veo Insulin Syringe Ultra-Fine) As directed lisinopril 40 mg PO DAILY metformin 1,000 mg PO BID methylcellulose (laxative) (Fiber Laxative (methylcellulose)) 500 mg PO BID metoprolol tartrate 25 mg PO BID nitrofurantoin monohyd/m-cryst 100 mg 1 cap PO Q12H omeprazole 20 mg PO DAILY polyethylene glycol 3350 (Miralax) 238 grams PO ONCE 1 day psyllium husk 1 tbsp PO DAILY 60 days sitagliptin phosphate (Januvia) 50 mg PO DAILY tiotropium bromide (Spiriva with HandiHaler) 1 cap inhalation DAILY Do you need a note to return to daycare/school/sports/work: No HPI COPD HPI Details 67 years old very pleasant female, known case of chronic obstructive pulmonary disease due to lifelong smoking. COPD, has been controlled with combination of Advair Diskus and Spiriva HandiHaler. But she has been short of breath on minimal exertion. She was being followed by for a solitary nodule in left lower lobe growing in size, Underwent DaVinci surgical procedure with left lower lobectomy. 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 Post procedure she recovered well except for hypoxemia and slightly increased shortness of breath. Patient was sent home on oxygen 1 L/minute especially with physical activity. She continues to be short of breath on walking around. Cough is minimal at this time, No wheezing And luckily she has quit smoking. [facility] Medical History (Updated 04/08/23 @ 12:08 by Naomi Floyd MD) Hypoxemia History of uterine cancer Type 2 diabetes mellitus, with long-term current use of insulin COPD (chronic obstructive pulmonary disease) Smoker PVD (peripheral vascular disease) Osteoporosis Family history of colon cancer Anxiety Dyslipidemia HTN (hypertension) Surgical History History of bunionectomy of left great toe History of colonoscopy History of pubovaginal sling History of hysterectomy Family History Brother Colon cancer Social History Household Members: None Alcohol intake: never Patient Tobacco Use Status: Former Tobacco user Tobacco use type: Cigarette Cigarettes Per Day: 15 Review of Systems Const All systems reviewed & are unremarkable except as noted in HPI and below Eyes Reports no additional complaints ENT Reports no additional complaints Card Denies chest pain, Denies irregular heart rhythm and Denies leg edema Resp Reports as per HPI GI Reports heartburn (GERD symptoms controlled with omeprazole) Reports no additional complaints Musc Reports no additional complaints Skin/Breast Reports system reviewed and no additional complaints, except as documented Neuro Reports no additional complaints Psych Reports depression (Controlled with medicine) Physical Exam Vital Signs: Last Vital Signs Pulse 72 04/08/23 11:36 BP 142/60 H 04/08/23 11:36 Pulse Ox 97 04/08/23 11:36 Oxygen Delivery Method Nasal Cannula 04/08/23 11:36 Oxygen Flow Rate 1 04/08/23 11:36 BMI result Body Mass Index 29.0 Const General: comfortable, no acute distress, alert and awake Orientation/consciousness: patient oriented x3 HEENT Head: Yes normal to inspection General nose exam: No nasal polyps present and No nasal discharge present Face and sinus: Yes sinuses nontender Mouth: oropharynx normal Throat: Yes posterior oropharynx normal Eyes General: appearance normal, both eyes and all related structures Neck Neck: Yes normal visual inspection, Yes no lymphadenopathy, Yes trachea midline and Yes no JVD Thyroid: Thyroid normal Chest Chest palpation & inspection: normal inspection of the chest (Except that she has, small surgical scars from thoracostomy over left lower), normal palpation of entire chest wall and no tenderness Resp Other: Percussion note hyper-resonant, breath sounds are distant with prolonged expiratory phase. No wheezes or rhonchi are heard today. Left lower chest is also well aerated Cardio Palpation: normal PMI Rate: regular rate Rhythm: regular rhythm Heart sounds: no gallops and no murmurs GI Palpation (GI): Soft to palpation, nontender, No hepatosplenomegaly present and no masses Auscultation: normal bowel sounds Back/Spine/Pelvis Thoracic/Lumbar Spine: thoracic and lumbar spine normal to inspection Skin General skin exam: no rashes or lesions noted Neuro General: patient oriented x3 and no focal motor deficits Cranial nerves: Yes CN's II-XII intact bilaterally Extrem General: Yes normal to inspection, Yes no clubbing, cyanosis or edema and Yes no calf tenderness Psych Appearance: grossly normal and well kempt Speech and movement: Normal speech and movement present Results Reviewed Results Reviewed: Tried on room air, O2 sat dropped to 89% within 3 minutes. She is placed back on O2 1 L/minute Assessment & Plan Assessment & Plan (1) COPD (chronic obstructive pulmonary disease): Comment: Chronic obstructive pulmonary disease, MODERATELY SEVERE. Recommended to continue current treatment, but will increase Advair strength to 500-50 1 inhalation b.i.d.. 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 PATIENT WOULD NEED SURVEILLANCE WITH CT SCANS FOR 5 YEARS. WILL CONTINUE TO FOLLOW-UP WITH DR. HARRIS Code(s): R91.1 - Solitary pulmonary nodule (3) Smoker: Comment: HAS HISTORY OF [employer] SMOKING. FINALLY QUIT SINCE SURGERY ON 03/18/2023 SHE IS COMMENDED FOR QUITTING THE SMOKING. Code(s): F17.200 - Nicotine dependence, unspecified, uncomplicated (4) Hypoxemia: Comment: POST SURGICAL PROCEDURE SHE WAS FOUND TO HAVE MILD HYPOXEMIA ON EXERTION. SHE HAS BEEN STARTED. ON O2 1 L/MINUTE WHEN SHE WAS TAKEN OFF THE O2 HER O2 SAT DROPPED DOWN. TO 89% WITHIN A FEW MINUTES SO I THINK AT THIS POINT SHE DOES NEED OXYGEN ESPECIALLY WHEN SHE IS WALKING AROUND OR GOES OUTDOORS. AT HOME SHE CAN USE P.R.N.. THE DAUGHTER WILL BE CHECKING HER O2 SATS AND GOAL IS TO KEEP ABOVE 90%. Code(s): R09.02 - Hypoxemia Coding Level of Care Code Est Pt Level 3 (60537) Diagnoses COPD (chronic obstructive pulmonary disease) J44.9 Pulmonary nodule R91.1 Smoker F17.200 Hypoxemia R09.02
== END 2023-04-08 11:54 | disposition home or self-care (01) ==
PROVIDERS: Visit Provider Internal Medicine
DX: J44.9 Chronic obstructive pulmonary disease, unspecified (principal); R91.1 Solitary pulmonary nodule; F17.200 Nicotine dependence, unspecified, uncomplicated; R09.02 Hypoxemia
CPT/HCPCS: 99213

== ENCOUNTER → 2023-04-08 11:33 | Outpatient (BNVA) | payer OTHER, SELFPAY | PROVIDERS: Visit Provider Internal Medicine | DX: J44.9 Chronic obstructive pulmonary disease, unspecified (principal); R09.02 Hypoxemia; R91.1 Solitary pulmonary nodule; F17.210 Nicotine dependence, cigarettes, uncomplicated; Z99.81 Dependence on supplemental oxygen | CPT/HCPCS: 99212 ==

== ENCOUNTER 2023-04-23 08:55 | Outpatient (REF) | payer OTHER, SELFPAY ==
[2023-04-23 11:15] LABS: MANUAL DIFF FLAG NO
[2023-04-23 11:24] LABS: Basophils Percent Auto 0.3 % (0-2); Eosinophils Absolute Auto 0.2 X10*3/uL (0.0-0.4); Hematocrit 33.2 % (37.0-47.0); Hemoglobin 10.4 g/dl (12.0-16.0); Imm Gran Abs Auto 0.07 X10*3/uL (0.00-0.03); Imm Gran Pct Auto 0.8 % (0.0-0.4); Lymphocytes Percent Auto 21.4 % (20-40); Mean Corpuscular HGB Conc 31.3 g/dl (31.0-35.0); Mean Corpuscular Hemoglobin 27.1 pg (27.0-33.0); Mean Corpuscular Volume 86.5 fL (80.0-98.0); Mean Platelet Volume 10.8 fL (9.4-12.3); Monocytes Absolute Auto 0.8 X10*3/uL (0.1-1.2); Monocytes Percent Auto 8.9 % (2-11); Neutrophils Absolute Auto 6.1 x10*3/uL (2.0-8.3); Neutrophils Percent Auto 66.6 % (45-73); Platelet Count 305 X10*3/uL (160-400); Red Blood Count 3.84 X10*6/uL (4.20-5.50); Red Cell Distribution Width 15.4 % (11.0-16.0); White Blood Count 9.1 X10*3/uL (4.8-10.8)
[2023-04-23 11:33] LABS: Estimated Average Glucose 217 mg/dL; Hemoglobin A1c % 9.2 % (<6.0)
[2023-04-23 11:57] LABS: Alanine Aminotransferase 11 U/L (0-31); Albumin Level 3.8 g/dL (3.5-5.0); Alkaline Phosphatase 86 U/L (39-117); Anion Gap 13 (12-20); Aspartate Amino Transferase 14 U/L (5-31); Bilirubin Total 0.3 mg/dL (0.0-1.0); Blood Urea Nitrogen 20 mg/dL (9-16); Calcium 9.3 mg/dL (8.4-10.2); Carbon Dioxide 27 mmol/L (22-29); Chloride 103 mmol/L (96-108); Cholesterol 146 mg/dL (<200); Estimated Glomerular Filt Rate > 60; Glucose Random 192 mg/dL (60-115); HDL Cholesterol 49 mg/dL (>40); Iron 47 mcg/dL (30-160); LDL Cholesterol Calculated 79 mg/dL (<100); Percent Iron Saturation 22 % (15-50); Potassium 4.8 mmol/L (3.3-5.1); Sodium 138 mmol/L (135-145); Total Iron Binding Capacity 218 mcg/dL (228-428); Total Protein 7.2 g/dL (6.5-8.0); Triglycerides 94 mg/dL (<150); Unsaturated Iron Binding 171 ug/dL
[2023-04-23 12:20] LABS: Ferritin 103 ng/mL (10-250)
[2023-04-23 12:28] LABS: Vitamin B12 1735 pg/mL (200-900)
[2023-04-23 13:27] LABS: Creatinine Urine 100.38 mg/dL; Microalbum/Creatinine Ratio Ur 31.8 ug/mg cr (<30)
[2023-04-24 07:33] LABS: Syphilis Screen Nonreactive (Nonreactive)
[2023-04-24 08:02] LABS: HIV AB/AG Nonreactive (Nonreactive); HIV Num 1 0.05 S/CO (0.00-0.99)
[2023-04-24 16:53] LABS: HCV Log PCR <1.18 NOT DETECTED Log IU/mL (NOT DETECTED); HepC Viral Load <15 NOT DETECTED IU/mL (NOT DETECTED)
[2023-04-26 11:58] LABS: VITAMIN D (1,25 OH) D3 24 pg/mL; Vit D (1,25-Dihydroxy) Total 24 pg/mL (18-72); Vitamin D (1,25 OH) D2 <8 pg/mL
== END 2023-04-23 08:56 | disposition home or self-care (01) ==
LOC: HO.HHCL 08:55
PROVIDERS: Visit Provider Registered Nurse
DX: Z00.00 Encounter for general adult medical examination without abnormal findings (principal); E11.65 Type 2 diabetes mellitus with hyperglycemia
CPT/HCPCS: 36415; 80053; 80061; 82043; 82570; 82607; 82652; 82728; 83036; 83540; 85025; 86780; 87389; 87522

== ENCOUNTER 2023-05-13 12:51 | Outpatient (REF) | payer OTHER, SELFPAY ==
[2023-05-13 13:24] LABS: MANUAL DIFF FLAG NO
[2023-05-13 13:36] LABS: Basophils Percent Auto 0.4 % (0-2); Eosinophils Absolute Auto 0.2 X10*3/uL (0.0-0.4); Eosinophils Percent Auto 2.1 % (0-4); Hematocrit 35.3 % (37.0-47.0); Hemoglobin 11.1 g/dl (12.0-16.0); Imm Gran Abs Auto 0.05 X10*3/uL (0.00-0.03); Imm Gran Pct Auto 0.5 % (0.0-0.4); Lymphocytes Absolute Auto 2.7 X10*3/uL (1.2-4.9); Lymphocytes Percent Auto 24.3 % (20-40); Mean Corpuscular HGB Conc 31.4 g/dl (31.0-35.0); Mean Corpuscular Hemoglobin 27.2 pg (27.0-33.0); Mean Corpuscular Volume 86.5 fL (80.0-98.0); Mean Platelet Volume 10.7 fL (9.4-12.3); Monocytes Absolute Auto 0.8 X10*3/uL (0.1-1.2); Monocytes Percent Auto 7.3 % (2-11); Neutrophils Absolute Auto 7.3 x10*3/uL (2.0-8.3); Neutrophils Percent Auto 65.4 % (45-73); Platelet Count 326 X10*3/uL (160-400); Red Blood Count 4.08 X10*6/uL (4.20-5.50); Red Cell Distribution Width 15.2 % (11.0-16.0); White Blood Count 11.1 X10*3/uL (4.8-10.8)
[2023-05-13 14:31] LABS: Magnesium 1.2 mg/dL (1.6-2.6)
== END 2023-05-13 12:52 | disposition home or self-care (01) ==
LOC: HO.HHCL 12:51
PROVIDERS: Visit Provider Registered Nurse
DX: E11.65 Type 2 diabetes mellitus with hyperglycemia (principal); D64.9 Anemia, unspecified
CPT/HCPCS: 36415; 83735; 85025

== ENCOUNTER 2023-05-14 10:10 | Outpatient (AMB) | payer OTHER, SELFPAY ==
--- NOTE | 2023-05-14 10:13 | A.OFFVIS_ITS ---
Intake Vital Signs 05/14/23 10:17 Height 5 ft 5 in Weight 174 lb BMI 29.0 BP 118/58 L Blood Pressure Location Lt brachial Position Sitting Pulse 74 Pulse Source Pulse Oximeter Pulse Oximetry (%) 93 Oxygen Delivery Method Room Air Intake Visit Reasons: COPD Intake Note: pt is here for follow up and states she is feeling well, not using oxygen, she f eels she doesn't need it, Analysis Tester Required: No Allergies ciprofloxacin [From CIPRO] Allergy (Severe, Verified 05/14/23 10:25) ANAPHYLAXIS Medication List - Last Reconciled 05/14/23 by Naomi Floyd MD albuterol sulfate 90 mcg/actuation 2 puffs inhalation Q4-6H PRN 30 days aspirin 81 mg PO DAILY atorvastatin 40 mg PO BEDTIME bisacodyl (Dulcolax (bisacodyl)) 10 mg (2 x 5 mg) PO ONCE 1 day calcium carbonate-vitamin D3 600 mg-10 mcg (400 unit) 1 tab PO BEDTIME cilostazol 50 mg PO BID fluoxetine 40 mg PO BEDTIME fluticasone propion-salmeterol 250-50 mcg/dose 1 inh inhalation BID gabapentin 300 mg PO DAILY hydralazine 25 mg PO BID hydroxyzine pamoate 25 mg PO TID insulin glargine (Lantus U-100 Insulin) 10 units subcut BEDTIME insulin syringe-needle U-100 (BD Veo Insulin Syringe Ultra-Fine) As directed lisinopril 40 mg PO DAILY metformin 1,000 mg PO BID methylcellulose (laxative) (Fiber Laxative (methylcellulose)) 500 mg PO BID metoprolol tartrate 50 mg PO BID nicotine 1 patch transdermal DAILY 28 days omeprazole 20 mg PO DAILY polyethylene glycol 3350 (Miralax) 238 grams PO ONCE 1 day psyllium husk 1 tbsp PO DAILY 60 days sitagliptin phosphate (Januvia) 50 mg PO DAILY umeclidinium 62.5 mcg/actuation (Incruse Ellipta) 1 inh inhalation DAILY Do you need a note to return to daycare/school/sports/work: No HPI COPD HPI Details 68 YEARS OLD FEMALE WITH DIAGNOSIS OF CH RONIC OBSTRUCTIVE PULMONARY DISEASE, AND RECENT LEFT LOWER LOBECTOMY FOR A SOLITARY NODULE ( ADENO CARCINOMA) SHE HAS CHRONIC OBSTRUCTIVE PULMONARY DISEASE, CURRENTLY SHE IS VERY STABLE, SHE IS NOT USING OXYGEN ALL THE TIME. AND HER WALKING AROUND IS LIMITED SHE DOES NOT EVEN NEED THE PORTABLE UNIT. SHE SLEEPS WELL. DENIES COUGH OR EXPECTORATION. [facility] Medical History (Updated 05/14/23 @ 10:42 by Naomi Floyd MD) Hypoxemia History of uterine cancer Type 2 diabetes mellitus, with long-term current use of insulin COPD (chronic obstructive pulmonary disease) Smoker PVD (peripheral vascular disease) Osteoporosis Family history of colon cancer Anxiety Dyslipidemia HTN (hypertension) Surgical History History of bunionectomy of left great toe History of colonoscopy History of pubovaginal sling History of hysterectomy Family History Brother Colon cancer Social History Household Members: None Alcohol intake: never Patient Tobacco Use Status: Former Tobacco user Tobacco use type: Cigarette Cigarettes Per Day: 15 Review of Systems Const All systems reviewed & are unremarkable except as noted in HPI and below Eyes Reports no additional complaints ENT Reports no additional complaints Card Denies chest pain, Denies irregular heart rhythm and Denies leg edema Resp Reports as per HPI GI Reports heartburn (GERD symptoms controlled with omeprazole) Reports no additional complaints Musc Reports no additional complaints Skin/Breast Reports system reviewed and no additional complaints, except as documented Neuro Reports no additional complaints Psych Reports depression (Controlled with medicine) Physical Exam Vital Signs: Last Vital Signs Pulse 74 05/14/23 10:17 BP 118/58 L 05/14/23 10:17 Pulse Ox 93 05/14/23 10:17 Oxygen Delivery Method Room Air 05/14/23 10:17 BMI result Body Mass Index 29.0 Const General: comfortable, no acute distress, alert and awake Orientation/consciousness: patient oriented x3 HEENT Head: Yes normal to inspection General nose exam: No nasal polyps present and No nasal discharge present Face and sinus: Yes sinuses nontender Mouth: oropharynx normal Throat: Yes posterior oropharynx normal Eyes General: appearance normal, both eyes and all related structures Neck Neck: Yes normal visual inspection, Yes no lymphadenopathy, Yes trachea midline and Yes no JVD Thyroid: Thyroid normal Chest Chest palpation & inspection: normal inspection of the chest (Except that she has, small surgical scars from thoracostomy over left lower), normal palpation of entire chest wall and no tenderness Resp Other: Percussion note hyper-resonant, breath sounds are distant with prolonged expiratory phase. No wheezes or rhonchi are heard today. Left lower chest is also well aerated Cardio Palpation: normal PMI Rate: regular rate Rhythm: regular rhythm Heart sounds: no gallops and no murmurs GI Palpation (GI): Soft to palpation, nontender, No hepatosplenomegaly present and no masses Auscultation: normal bowel sounds Back/Spine/Pelvis Thoracic/Lumbar Spine: thoracic and lumbar spine normal to inspection Skin General skin exam: no rashes or lesions noted Neuro General: patient oriented x3 and no focal motor deficits Cranial nerves: Yes CN's II-XII intact bilaterally Extrem General: Yes normal to inspection, Yes no clubbing, cyanosis or edema and Yes no calf tenderness Psych Appearance: grossly normal and well kempt Speech and movement: Normal speech and movement present Assessment & Plan Assessment & Plan (1) COPD (chronic obstructive pulmonary disease): Comment: PATIENT HAS CHRONIC OBSTRUCTIVE PULMONARY DISEASE, MODERATELY SEVERE, WELL CONTROLLED AND STABLE AT THIS TIME. TX: ADVAIR 250-51 INHALATION B.I.D.. INCRUSE ELLIPTA 1 INHALATION DAILY. PROAIR 2 PUFFS Q 6 HOURS P.R.N.. Code(s): J44.9 - Chronic obstructive pulmonary disease, unspecified (2) Smoker: Comment: HAS HISTORY OF LIFELONG SMOKING. FINALLY QUIT SINCE SURGERY ON 03/18/2023 DENIES ANY URGE TO GO BACK TO SMOKING. SHE IS COMMENDED FOR QUITTING THE SMOKING. Code(s): F17.200 - Nicotine dependence, unspecified, uncomplicated (3) Pulmonary nodule: Comment: STATUS POST DAVINCI PROCEDURE AND LEFT LOWER LOBECTOMY, BIOPSY REPORT: NODULE WAS ADENO CARCINOMA, REMOVED COMPLETELY. PATIENT WOULD NEED SURVEILLANCE WITH CT SCANS FOR 5 YEARS. WILL CONTINUE TO FOLLOW-UP WITH DR. HARRIS Code(s): R91.1 - Solitary pulmonary nodule (4) Hypoxemia: Comment: POST SURGICAL PROCEDURE SHE WAS FOUND TO HAVE MILD HYPOXEMIA ON EXERTION. SHE HAS BEEN STARTED. ON O2 1 L/MINUTE SINCE HER LAST VISIT PATIENT HAS STOPPED USING THE O2. SHE DOES NOT WALK OUT OF THE HOUSE, MUCH. O2 SAT AT REST IS. 94-95% I ADVISED HER TO KEEP THE CONCENTRATOR AND PORTABLE UNIT AT HOME, FOR THE TIME BEING. AND MAY NEED TO USE P.R.N. WHEN SHE WALKS AROUND. Code(s): R09.02 - Hypoxemia Coding Level of Care Code Est Pt Level 3 (21735) Diagnoses COPD (chronic obstructive pulmonary disease) J44.9 Smoker F17.200 Pulmonary nodule R91.1 Hypoxemia R09.02
[2023-05-14 10:17] VITALS: BP 118/58; PULSE 74; O2SAT 93; BMI 29.0
== END 2023-05-14 10:36 | disposition home or self-care (01) ==
PROVIDERS: PCP Registered Nurse; Visit Provider Internal Medicine
DX: J44.9 Chronic obstructive pulmonary disease, unspecified (principal); F17.200 Nicotine dependence, unspecified, uncomplicated; R91.1 Solitary pulmonary nodule; R09.02 Hypoxemia
CPT/HCPCS: 99213

== ENCOUNTER → 2023-05-14 10:10 | Outpatient (BNVA) | payer OTHER, SELFPAY | PROVIDERS: Visit Provider Internal Medicine | DX: J44.9 Chronic obstructive pulmonary disease, unspecified (principal); R91.1 Solitary pulmonary nodule; R09.02 Hypoxemia; F17.210 Nicotine dependence, cigarettes, uncomplicated | CPT/HCPCS: 99212 ==

== ENCOUNTER 2023-05-20 13:04 | Outpatient (REF) | payer OTHER, SELFPAY ==
[2023-05-20 16:22] LABS: Sodium 139 mmol/L (135-145)
[2023-05-20 16:23] LABS: Anion Gap 14 (12-20); Blood Urea Nitrogen 18 mg/dL (9-16); Calcium 9.5 mg/dL (8.4-10.2); Carbon Dioxide 28 mmol/L (22-29); Chloride 102 mmol/L (96-108); Estimated Glomerular Filt Rate > 60; Glucose Random 253 mg/dL (60-115); Potassium 4.6 mmol/L (3.3-5.1)
[2023-05-20 16:30] LABS: Magnesium 1.2 mg/dL (1.6-2.6)
== END 2023-05-20 13:05 | disposition home or self-care (01) ==
LOC: HO.HHCL 13:04
PROVIDERS: Visit Provider Registered Nurse
DX: E83.42 Hypomagnesemia (principal)
CPT/HCPCS: 36415; 80048; 83735

== ENCOUNTER → 2023-05-25 15:16 | Outpatient (REF) | payer OTHER, SELFPAY ==
--- NOTE | 2023-05-25 15:19 | CA_ITS ---
Transthoracic Echocardiogram Patient (Last, First, Middle): Tete Ayon, Gender: Female Date of : 1955 Age: 68 Procedure Date: 05/25/2023 Procedure Type: Transthoracic Echocardiogram Location: OP Height: 162.56 cm Weight: 78.47 kg BSA: 1.84 m2 Heart Rate: 72 bpm BP: 120 / 78 mmHg Fixed Income Manager: SB Referring MD: Orlando Perkins MD Symptoms: I25.10 CAD Study Quality: Adequate ECG Rhythm: Sinus Conclusions: - The left ventricular systolic function is mild to moderately decreased. The calculated ejection fraction is 41% by biplane method. - There is moderate mitral annular calcification. Findings Left Ventricle Mildly increased left ventricular cavity size. The left ventricular systolic function is mild to moderately decreased. The calculated ejection fraction is 41% by biplane method. There is mild global hypokinesis. Evidence suggests grade I (mild) diastolic dysfunction. LV peak GLS -12.3%. Right Ventricle Normal right ventricular cavity size and systolic function. Atria Both atria are normal in size. Aortic Valve There is a normal trileaflet aortic valve. There is no aortic valve stenosis. There is no aortic valve regurgitation. Mitral Valve There is moderate mitral annular calcification. There is mild mitral valve regurgitation. There is no mitral valve stenosis. Pulmonic Valve The pulmonic valve is likely normal. Tricuspid Valve There is no tricuspid valve regurgitation. Tricuspid regurgitation envelope is inadequate for calculation of right ventricular systolic pressure. Great Vessels The asc aorta is normal in size. Venous The inferior vena cava is normal in size and collapses greater than 50% with inspiration. Pericardium/Pleural There is no evidence of pericardial effusion. Prior Study Comparison No prior study available for comparison. Measurements 2D Linear Measurements IVSd: 0.93 0.6-0.9/0.6-1.0 cm LVIDd: 5.88 3.9-5.3/4.2-5.9 cm LVIDd Index: 3.20 2.4-3.2/2.2-3.1 cm/m2 LVIDs: 4.46 2.0-3.6 cm LVPWd: 0.73 0.7-1.1 cm LA Diam: 4.20 2.7-3.8/3.0-4.0 cm LAIDs Index: 2.28 1.5-2.3 cm/m2 LV Mass: 235.27 67-162/88-224 g LV Mass Index: 127.86 43-95/49-115 g/m2 LVOT Diam: 2.10 3.0+(-)1.3 cm 2D Systolic Function EF 4C: 47.10 >55% EF 2C: 37.20 >55% EF BiP: 41.20 >55% Mitral Valve MV VTI: 0.33 MV Pk Vitaly: 1.44 MV Mn Vitaly: 0.79 MV Pk Grad: 8.00 MV Mn Grad: 3.00 MV Pk E: 0.72 MV PK A: 1.17 MV Decel Time: 227.00 E/A: 0.60 E'Lateral: 3.37 E'Medial: 3.26 E/E' Med: 22.00 E/E' Lat: 21.20 PHT: 66.00 MVA PHT: 3.33 MVA Continuity: 2.11 Decel [place]: 3.16 Aortic Valve AoV Pk Vitaly: 1.16 AoV Pk Grad: 5.00 ALKA: 2.80 LVOT LVOT Pk Vitaly: 0.90 LVOT Mn Vitaly: 0.62 LVOT VTI: 0.20 LVOT Pk Grad: 3.00 LVOT Mn Grad: 2.00 LVOT Diam: 2.10 LVOT Area: 3.46 Diastolic Function MV Pk E: 0.72 MV Pk A: 1.17 E/A: 0.60 E'Medial: 3.26 E/E' Med: 22.00 E' Laterial: 3.37 E/E' Lat: 21.20 Right Ventricle TAPSE (mm): 24.00 TVS' Vitaly: 9.90 Tricuspid Valve RA Press: 3.00 Great Vessels Aorta Sinus of Valsalva: 3.30 2.0-3.5 cm Ao Asc: 3.50 2.1-3.4 cm Pulmonary Veins Pulm Vein S/D 1.50 Pulmonary Valve PV Pk Vitaly: 0.77 Peak PV Grad: 2.00 Updated in Other Vendor System with Status of Final Rob Joyce MD electronically signed on 05/26/2023 10:26:57 AM with status of Final
== END ==
LOC: HO.CARD 15:16
PROVIDERS: PCP Registered Nurse; Visit Provider Internal Medicine Cardiovascular Disease
DX: I25.10 Atherosclerotic heart disease of native coronary artery without angina pectoris (principal)
CPT/HCPCS: 93306; 93356

== ENCOUNTER → 2023-05-25 15:19 | Outpatient (BNV) | payer OTHER, SELFPAY | PROVIDERS: PCP Registered Nurse; Visit Provider Internal Medicine | DX: I34.0 Nonrheumatic mitral (valve) insufficiency (principal) | CPT/HCPCS: 93306 ==

== ENCOUNTER 2023-06-04 13:59 | Outpatient (REF) | payer OTHER, SELFPAY ==
[2023-06-04 16:32] LABS: Magnesium 1.5 mg/dL (1.6-2.6)
== END 2023-06-04 14:00 | disposition home or self-care (01) ==
LOC: HO.HHCL 13:59
PROVIDERS: Visit Provider Registered Nurse
DX: E83.42 Hypomagnesemia (principal)
CPT/HCPCS: 36415; 83735

== ENCOUNTER 2023-07-14 11:55 | Outpatient (REF) | payer OTHER, SELFPAY ==
[2023-07-14 13:30] LABS: Magnesium 1.2 mg/dL (1.6-2.6)
== END 2023-07-14 11:56 | disposition home or self-care (01) ==
LOC: HO.HHCL 11:55
PROVIDERS: Visit Provider Registered Nurse
DX: E83.42 Hypomagnesemia (principal)
CPT/HCPCS: 36415; 83735

== ENCOUNTER 2023-09-07 13:11 | Outpatient (AMB) | payer OTHER, SELFPAY ==
--- NOTE | 2023-09-07 13:19 | A.OFFVIS_ITS ---
Intake Vital Signs 09/07/23 13:23 Height 5 ft 5 in Weight 173 lb 6 oz BMI 28.8 BP 116/64 Blood Pressure Location Lt brachial Position Sitting Respiration 14 Pulse 71 Pulse Source Pulse Oximeter Pulse Oximetry (%) 93 Oxygen Delivery Method Room Air Intake Visit Reasons: shortness of breath Allergies ciprofloxacin [From CIPRO] Allergy (Severe, Verified 09/07/23 13:27) ANAPHYLAXIS Medication List - Last Reconciled 09/07/23 by Naomi Floyd MD albuterol sulfate 90 mcg/actuation 2 puffs inhalation Q4-6H PRN 30 days aspirin 81 mg PO DAILY atorvastatin 40 mg PO BEDTIME bisacodyl (Dulcolax (bisacodyl)) 10 mg (2 x 5 mg) PO ONCE 1 day calcium carbonate-vitamin D3 600 mg-10 mcg (400 unit) 1 tab PO BEDTIME cilostazol 50 mg PO BID fluoxetine 40 mg PO BEDTIME fluticasone propion-salmeterol 250-50 mcg/dose 1 inh inhalation BID gabapentin 300 mg PO DAILY hydralazine 25 mg PO BID hydroxyzine pamoate 25 mg PO TID insulin glargine (Lantus U-100 Insulin) 10 units subcut BEDTIME insulin syringe-needle U-100 (BD Veo Insulin Syringe Ultra-Fine) As directed lisinopril 40 mg PO DAILY metformin 1,000 mg PO BID methylcellulose (laxative) (Fiber Laxative (methylcellulose)) 500 mg PO BID metoprolol tartrate 50 mg PO BID nicotine 1 patch transdermal DAILY 28 days omeprazole 20 mg PO DAILY polyethylene glycol 3350 (Miralax) 238 grams PO ONCE 1 day psyllium husk 1 tbsp PO DAILY 60 days sitagliptin phosphate (Januvia) 50 mg PO DAILY umeclidinium 62.5 mcg/actuation (Incruse Ellipta) 1 inh inhalation DAILY Do you need a note to return to daycare/school/sports/work: No HPI shortness of breath HPI Details 68 years old Guyanese-speaking very pleas ant female is here for a quick follow-up. Her daughter is concerned that when she walks around her O2 sat falls down into 80s. Patient does have the stationary concentrator at home but she does not use oxyge SHE HAS DIAGNOSIS OF CHRONIC OBSTRUCTIVE PULMONARY DISEASE,AND IN 2022 HAD LEFT LOWER LOBECTOMY FOR A SOLITARY NODULE ( ADENO CARCINOMA) SHE ALSO HAS CHRONIC OBSTRUCTIVE PULMONARY DISEASE, CURRENTLY SHE IS VERY STABLE, SHE IS NOT USING OXYGEN ALL THE TIME. AND HER WALKING AROUND IS LIMITED SHE DOES NOT EVEN NEED THE PORTABLE UNIT. NOTED ABOVE THE DAUGHTER HAS NOTICED THAT HER O2 SAT DOES DROP INTO MID 80S WHEN SHE WALKS. SHE SLEEPS WELL. DENIES COUGH OR EXPECTORATION. [facility] Medical History Hypoxemia History of uterine cancer Type 2 diabetes mellitus, with long-term current use of insulin COPD (chronic obstructive pulmonary disease) Smoker PVD (peripheral vascular disease) Osteoporosis Family history of colon cancer Anxiety Dyslipidemia HTN (hypertension) Surgical History History of lung surgery History of bunionectomy of left great toe History of colonoscopy History of pubovaginal sling History of hysterectomy Family History Brother Colon cancer Social History Household Members: None Alcohol intake: never Patient Tobacco Use Status: Former Tobacco user Tobacco use type: Cigarette Cigarettes Per Day: 15 Review of Systems Const All systems reviewed & are unremarkable except as noted in HPI and below Eyes Reports no additional complaints ENT Reports no additional complaints Card Denies chest pain, Denies irregular heart rhythm and Denies leg edema Resp Reports as per HPI GI Reports heartburn (GERD symptoms controlled with omeprazole) Reports no additional complaints Musc Reports no additional complaints Skin/Breast Reports system reviewed and no additional complaints, except as documented Neuro Reports no additional complaints Psych Reports depression (Controlled with medicine) Physical Exam Vital Signs: Last Vital Signs Pulse 71 09/07/23 13:23 Resp 14 09/07/23 13:23 BP 116/64 09/07/23 13:23 Pulse Ox 93 09/07/23 13:23 Oxygen Delivery Method Room Air 09/07/23 13:23 BMI result Body Mass Index 28.8 Const General: comfortable, no acute distress, alert and awake Orientation/consciousness: patient oriented x3 HEENT Head: Yes normal to inspection General nose exam: No nasal polyps present and No nasal discharge present Face and sinus: Yes sinuses nontender Mouth: oropharynx normal Throat: Yes posterior oropharynx normal Eyes General: appearance normal, both eyes and all related structures Neck Neck: Yes normal visual inspection, Yes no lymphadenopathy, Yes trachea midline and Yes no JVD Thyroid: Thyroid normal Chest Chest palpation & inspection: normal inspection of the chest (Except that she has, small surgical scars from thoracostomy over left lower), normal palpation of entire chest wall and no tenderness Resp Other: Percussion note hyper-resonant, breath sounds are distant with prolonged expiratory phase. No wheezes or rhonchi are heard today. Left lower chest is also well aerated Cardio Palpation: normal PMI Rate: regular rate Rhythm: regular rhythm Heart sounds: no gallops and no murmurs GI Palpation (GI): Soft to palpation, nontender, No hepatosplenomegaly present and no masses Auscultation: normal bowel sounds Back/Spine/Pelvis Thoracic/Lumbar Spine: thoracic and lumbar spine normal to inspection Skin General skin exam: no rashes or lesions noted Neuro General: patient oriented x3 and no focal motor deficits Cranial nerves: Yes CN's II-XII intact bilaterally Extrem General: Yes normal to inspection, Yes no clubbing, cyanosis or edema and Yes no calf tenderness Psych Appearance: grossly normal and well kempt Speech and movement: Normal speech and movement present Office Procedures 6 Minute Walk Time:: 13:35 SPO2 % at rest: 93 Pulse at rest: 67 SPO2 % during excercise: 88 Pulse during excercise: 81 SPO2 % after excercise: 93 Pulse after excercise: 71 Distance in yards walked: 160 Nikolay Score: 2 Performance Observations:: Tete walked on level ground without assistance, she walked for 50 yards before her SPO2 decreased to 88% on room air. O2 started at 1 lpm and with a brief rest her SPO2 recovered to 93%, she maintained her SPO2 93-94% for the remainder of the walk. [id number] - 6 Minute Walk Results Reviewed Results Reviewed: 6 minnutes walk test Assessment & Plan Assessment & Plan (1) COPD (chronic obstructive pulmonary disease): Comment: PATIENT HAS CHRONIC OBSTRUCTIVE PULMONARY DISEASE, MODERATELY SEVERE, WELL CONTROLLED AND STABLE AT THIS TIME. Code(s): J44.9 - Chronic obstructive pulmonary disease, unspecified Plan: TX: ADVAIR 250-50 INHALATION B.I.D.. INCRUSE ELLIPTA 1 INHALATION DAILY. PROAIR 2 PUFFS Q 6 HOURS P.R.N.. (2) Smoker: Comment: HAS HISTORY OF LIFELONG SMOKING. FINALLY QUIT SINCE SURGERY ON 03/18/2023 DENIES ANY URGE TO GO BACK TO SMOKING. Code(s): F17.200 - Nicotine dependence, unspecified, uncomplicated Plan: SHE IS COMMENDED FOR QUITTING THE SMOKING. (3) Pulmonary nodule: Comment: STATUS POST DAVINCI PROCEDURE AND LEFT LOWER LOBECTOMY, BIOPSY REPORT: NODULE WAS ADENO CARCINOMA, REMOVED COMPLETELY. PATIENT WOULD NEED SURVEILLANCE WITH CT SCANS FOR 5 YEARS. WILL CONTINUE TO FOLLOW-UP WITH DR. HARRIS AT [facility]. Code(s): R91.1 - Solitary pulmonary nodule Plan: ABOVE (4) Hypoxemia: Comment: POST SURGICAL PROCEDURE SHE WAS FOUND TO HAVE MILD HYPOXEMIA ON EXERTION. SHE HAS BEEN STARTED. ON O2 1 L/MINUTE SINCE HER LAST VISIT PATIENT HAS STOPPED USING THE O2. SHE DOES NOT WALK OUT OF THE HOUSE, MUCH. HER DAUGHTER STATED THAT WHEN SHE WALKS AROUND IN THE HOUSE HER O2 SAT DOES DROP DOWN INTO MID 80S Code(s): R09.02 - Hypoxemia Plan: 6 MINUTES WALK DONE IN THE OFFICE. TOWARDS THE END OF 6 MINUTES WALK HER O2 SAT DID DROP DOWN INTO MID 80S AND BOUNCED BACK TO NORMAL WITH 1 L/MINUTE. PATIENT DOES HAVE O2 CONCENTRATOR AND PORTABLE CYLINDER AT HOME SHE IS ADVISED TO USE O2 1 L/MINUTE IF SHE HAS TO DO WALKING OR ANY PHYSICAL ACTIVITY FOR MORE THAN 5 MINUTES Orders: Orders AMB 6 minute walk Today J44.9 - Chronic obstructive pulmonary disease, unspecified Coding Level of Care Code Est Pt Level 3 (87133) Diagnoses COPD (chronic obstructive pulmonary disease) J44.9 Smoker F17.200 Pulmonary nodule R91.1 Hypoxemia R09.02 CPT Codes Coding ([id number])
[2023-09-07 13:23] VITALS: BP 116/64; PULSE 71; RESP 14; O2SAT 93; BMI 28.8
[2023-09-07 13:49] VITALS: PULSE 67; O2SAT 93
== END 2023-09-07 13:44 | disposition home or self-care (01) ==
PROVIDERS: PCP Registered Nurse; Visit Provider Internal Medicine
DX: J44.9 Chronic obstructive pulmonary disease, unspecified (principal); F17.200 Nicotine dependence, unspecified, uncomplicated; R91.1 Solitary pulmonary nodule; R09.02 Hypoxemia
CPT/HCPCS: 94618; 99213

== ENCOUNTER → 2023-09-07 13:11 | Outpatient (BNVA) | payer OTHER, SELFPAY | PROVIDERS: PCP Registered Nurse; Visit Provider Internal Medicine | DX: J44.9 Chronic obstructive pulmonary disease, unspecified (principal); R91.1 Solitary pulmonary nodule; R09.02 Hypoxemia; Z87.891 Personal history of nicotine dependence | CPT/HCPCS: 94618; 99212 ==

== ENCOUNTER 2023-09-07 13:57 | Outpatient (REF) | payer OTHER, SELFPAY ==
[2023-09-07 16:30] LABS: Anion Gap 16 (12-20); Blood Urea Nitrogen 18 mg/dL (9-16); Calcium 9.9 mg/dL (8.4-10.2); Carbon Dioxide 28 mmol/L (22-29); Chloride 101 mmol/L (96-108); Estimated Glomerular Filt Rate 56; Glucose Random 243 mg/dL (60-115); Magnesium 1.5 mg/dL (1.6-2.6); Potassium 5.2 mmol/L (3.3-5.1); Sodium 140 mmol/L (135-145)
== END 2023-09-07 13:58 | disposition home or self-care (01) ==
LOC: HO.HHCL 13:57
PROVIDERS: Visit Provider Registered Nurse
DX: E83.42 Hypomagnesemia (principal)
CPT/HCPCS: 36415; 80048; 83735

== ENCOUNTER 2023-09-15 12:16 | Outpatient (AMB) | payer OTHER, SELFPAY ==
--- NOTE | 2023-09-15 12:26 | HO.NEPHOV_ITS ---
HPI HPI Comments History of Present Illness Details I had the privilege of seeing really Tete, accompanied by her daughter, in consultation for hypomagnesemia. She has longstanding history of hypertension and diabetes mellitus. She takes proton pump inhibitor for a long time even though she does not have any acid reflux symptoms. She denies nausea, vomiting or diarrhea. She has no history of calcium disorders. She has not been taking any diuretics. She has history of lung cancer and had undergone surgery. She never received any chemotherapy. She has no history of nephrocalcinosis. She has no family history of hypomagnesemia. She has history of excessive alcohol intake for a long time but currently does not drink at all. Her blood pressure has been at goal. Lately her serum potassium was 5.2 and was found to have microalbuminuria as well. She does not have any chest pain, shortness of breath, palpitation, syncope or history of cardiac dysfunction. She denied any active complaints during the time of this office visit. REPLACED BY [facility] Medical History Hypoxemia History of uterine cancer Type 2 diabetes mellitus, with long-term current use of insulin COPD (chronic obstructive pulmonary disease) Smoker PVD (peripheral vascular disease) Osteoporosis Family history of colon cancer Anxiety Dyslipidemia HTN (hypertension) Surgical History History of lung surgery History of bunionectomy of left great toe History of colonoscopy History of pubovaginal sling History of hysterectomy Family History Brother Colon cancer Social History Household Members: None Alcohol intake: never Patient Tobacco Use Status: Former Tobacco user Tobacco use type: Cigarette Cigarettes Per Day: 15 Vital Signs 09/15/23 12:27 Height 5 ft 5 in Weight 176 lb 6 oz BMI 29.3 BP 130/60 Blood Pressure Location Lt brachial Position Sitting Pulse 79 Pulse Source Pulse Oximeter Pulse Oximetry (%) 94 Oxygen Delivery Method Room Air Physical Exam Vital Signs: Last Vital Signs Pulse 79 09/15/23 12:27 BP 130/60 09/15/23 12:27 Pulse Ox 94 09/15/23 12:27 Oxygen Delivery Method Room Air 09/15/23 12:27 BMI result Body Mass Index 29.3 Const General: comfortable and no acute distress Orientation/consciousness: patient oriented x3 HEENT Head: Yes normocephalic Mouth: Normal oral and palatal mucosa present Eyes EOM: EOMs intact bilaterally Neck Neck: Yes supple Resp Auscultation: clear to auscultation bilaterally Cardio Jugular venous distension: no JVD Rate: regular rate GI Palpation (GI): Soft to palpation Auscultation: normal bowel sounds General: Yes no CVA tenderness Back/Spine/Pelvis Back: no CVA tenderness Skin General skin exam: no rashes or lesions noted Neuro General: patient oriented x3 and moves all extremities Extrem General: Yes no pedal edema Assessment & Plan Assessment & Plan (1) HTN (hypertension): Code(s): I10 - Essential (primary) hypertension Qualifiers: Hypertension type: primary hypertension Qualified Code(s): I10 - Essential (primary) hypertension (2) Hypomagnesemia: Code(s): E83.42 - Hypomagnesemia (3) Proteinuria: Code(s): R80.9 - Proteinuria, unspecified Qualifiers: Proteinuria type: other Qualified Code(s): R80.8 - Other proteinuria Plan Tete most likely has 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 She also has been taking proton pump inhibitor which I discontinued today. I ordered lab work to calculate fractional excretion of magnesium. She has been taking [id number] 100 mg magnesium if he had a which I doubled it to 200 mg daily. Her blood pressure has been at goal on current medication regimen. Her serum potassium is high normal. 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 I did not make any other medication changes today but ordered workup. All her and her daughter's questions were answered. Follow-up lab work ordered and follow-up appointment given. Orders: Orders Electrolytes Today E83.42 - Hypomagnesemia, I10 - Essential (primary) hypertension, R80.9 - Proteinuria, unspecified Calcium Today E83.42 - Hypomagnesemia, I10 - Essential (primary) hypertension, R80.9 - Proteinuria, unspecified Creatinine Today E83.42 - Hypomagnesemia, I10 - Essential (primary) hypertension, R80.9 - Proteinuria, unspecified Blood Urea Nitrogen Today E83.42 - Hypomagnesemia, I10 - Essential (primary) hypertension, R80.9 - Proteinuria, unspecified Magnesium Today E83.42 - Hypomagnesemia, I10 - Essential (primary) hypertension, R80.9 - Proteinuria, unspecified Protein Creatinine Ratio, Ur Today E83.42 - Hypomagnesemia, I10 - Essential (primary) hypertension, R80.9 - Proteinuria, unspecified Osmolality, Serum Today E83.42 - Hypomagnesemia, I10 - Essential (primary) hypertension, R80.9 - Proteinuria, unspecified Osmolality Urine Today E83.42 - Hypomagnesemia, I10 - Essential (primary) hypertension, R80.9 - Proteinuria, unspecified Magnesium, Random Urine Today E83.42 - Hypomagnesemia, I10 - Essential (primary) hypertension, R80.9 - Proteinuria, unspecified Coding Level of Care Code New Pt Level 4 (80463) Diagnoses Primary hypertension I10 Hypertension type: primary hypertension Hypomagnesemia E83.42 Other proteinuria R80.8 Proteinuria type: other Results Reviewed Nephrology Results: Sodium 140 mmol/L (135-145) 09/07/23 Potassium 5.2 mmol/L (3.3-5.1) H 09/07/23 Chloride 101 mmol/L (96-108) 09/07/23 Carbon Dioxide 28 mmol/L (22-29) 09/07/23 BUN 18 mg/dL (9-16) H 09/07/23 Creatinine 0.98 mg/dL (0.5-1.4) 09/07/23 Calcium 9.9 mg/dL (8.4-10.2) 09/07/23
[2023-09-15 12:27] VITALS: BP 130/60; PULSE 79; O2SAT 94; BMI 29.3
== END 2023-09-15 12:56 | disposition home or self-care (01) ==
PROVIDERS: PCP Registered Nurse; Visit Provider Internal Medicine Nephrology
DX: I10 Essential (primary) hypertension (principal); E83.42 Hypomagnesemia; R80.8 Other proteinuria
CPT/HCPCS: 99204

== ENCOUNTER → 2023-09-15 12:16 | Outpatient (BNVA) | payer OTHER, SELFPAY | PROVIDERS: PCP Registered Nurse; Visit Provider Internal Medicine Nephrology | DX: I10 Essential (primary) hypertension (principal); E83.42 Hypomagnesemia; R80.8 Other proteinuria | CPT/HCPCS: 99202 ==

== ENCOUNTER 2023-11-11 10:33 | Outpatient (AMB) | payer OTHER, SELFPAY ==
--- NOTE | 2023-11-11 10:42 | MHC.OFFVIS ---
Vital Signs 11/11/23 10:43 Height 5 ft 5 in Weight 181 lb BMI 30.1 BP 110/60 Blood Pressure Location Lt brachial Position Sitting Pulse 85 Pulse Source Pulse Oximeter Pulse Oximetry (%) 92 Oxygen Delivery Method Room Air Intake Visit Reasons: COPD Intake Note: pt is here for follow up and feels fine Medicine Teacher Required: No Allergies ciprofloxacin [From CIPRO] Allergy (Severe, Verified 11/11/23 11:00) ANAPHYLAXIS Medication List - Last Reconciled 11/11/23 by Naomi Floyd MD albuterol sulfate 90 mcg/actuation 2 puffs inhalation Q4-6H PRN 30 days aspirin 81 mg PO DAILY atorvastatin 40 mg PO BEDTIME bisacodyl (Dulcolax (bisacodyl)) 10 mg (2 x 5 mg) PO ONCE 1 day calcium carbonate-vitamin D3 600 mg-10 mcg (400 unit) 1 tab PO BEDTIME cilostazol 50 mg PO BID fluoxetine 40 mg PO BEDTIME fluticasone propion-salmeterol 250-50 mcg/dose 1 inh inhalation BID gabapentin 300 mg PO DAILY hydralazine 25 mg PO BID hydroxyzine pamoate 25 mg PO TID insulin glargine (Lantus U-100 Insulin) 10 units subcut BEDTIME insulin syringe-needle U-100 (BD Veo Insulin Syringe Ultra-Fine) As directed lisinopril 40 mg PO DAILY metformin 1,000 mg PO BID methylcellulose (laxative) (Fiber Laxative (methylcellulose)) 500 mg PO BID metoprolol tartrate 50 mg PO BID nicotine 1 patch transdermal DAILY 28 days omeprazole 20 mg PO DAILY polyethylene glycol 3350 (Miralax) 238 grams PO ONCE 1 day psyllium husk 1 tbsp PO DAILY 60 days sitagliptin phosphate (Januvia) 50 mg PO DAILY umeclidinium 62.5 mcg/actuation (Incruse Ellipta) 1 inh inhalation DAILY Do you need a note to return to daycare/school/sports/work: No HPI HPI COPD: Details: 68 YEARS OLD AMHARIC-SPEAKING FEMALE IS HERE FOR FOLLOW UP AFTER 2 MONTHS. HER BREATHING HAS BEEN FAIRLY STABLE, SHE HAS ONLY OCCASIONAL COUGH NO WHEEZING. SHE DOES NOT WALK TOO MUCH AND HAS NOT NEEDED TO USE THE OXYGEN. CONTINUES TO USE ADVAIR 250-50 TWICE A DAY AND INCRUSE ELLIPTA ONLY ONCE A DAY. SHE HAS NOT REQUIRED TO USE THE RESCUE INHA.LER TOO MUCH SHE DOES HAVE STATIONARY O2 CONCENTRATO R AT HOME WELL A PORTABLE CYLINDER. COUNTS INCLUDE 234 BEDS AT THE [facility] Medical History Hypoxemia History of uterine cancer Type 2 diabetes mellitus, with long-term current use of insulin COPD (chronic obstructive pulmonary disease) Smoker PVD (peripheral vascular disease) Osteoporosis Family history of colon cancer Anxiety Dyslipidemia HTN (hypertension) Surgical History History of lung surgery History of bunionectomy of left great toe History of colonoscopy History of pubovaginal sling History of hysterectomy Family History Brother Colon cancer Social History Household Members: None Alcohol intake: never Patient Tobacco Use Status: Former Tobacco user Tobacco use type: Cigarette Cigarettes Per Day: 15 Review of Systems Const All systems reviewed & are unremarkable except as noted in HPI and below Eyes Reports no additional complaints ENT Reports no additional complaints Card Denies chest pain, Denies irregular heart rhythm and Denies leg edema Resp Reports as per HPI GI Reports heartburn (GERD symptoms controlled with omeprazole) Reports no additional complaints Musc Reports no additional complaints Skin/Breast Reports system reviewed and no additional complaints, except as documented Neuro Reports no additional complaints Psych Reports depression (Controlled with medicine) Physical Exam Vital Signs: Last Vital Signs Pulse 85 11/11/23 10:43 BP 110/60 11/11/23 10:43 Pulse Ox 92 11/11/23 10:43 Oxygen Delivery Method Room Air 11/11/23 10:43 BMI result Body Mass Index 30.1 Const General: comfortable, no acute distress, alert and awake Orientation/consciousness: patient oriented x3 HEENT Head: Yes normal to inspection General nose exam: No nasal polyps present and No nasal discharge present Face and sinus: Yes sinuses nontender Mouth: oropharynx normal Throat: Yes posterior oropharynx normal Eyes General: appearance normal, both eyes and all related structures Neck Neck: Yes normal visual inspection, Yes no lymphadenopathy, Yes trachea midline and Yes no JVD Thyroid: Thyroid normal Chest Chest palpation & inspection: normal inspection of the chest (Except that she has, small surgical scars from thoracostomy over left lower), normal palpation of entire chest wall and no tenderness Resp Other: Percussion note hyper-resonant, breath sounds are distant with prolonged expiratory phase. No wheezes or rhonchi are heard today. Left lower chest is also well aerated Cardio Palpation: normal PMI Rate: regular rate Rhythm: regular rhythm Heart sounds: no gallops and no murmurs GI Palpation (GI): Soft to palpation, nontender, No hepatosplenomegaly present and no masses Auscultation: normal bowel sounds Back/Spine/Pelvis Thoracic/Lumbar Spine: thoracic and lumbar spine normal to inspection Skin General skin exam: no rashes or lesions noted Neuro General: patient oriented x3 and no focal motor deficits Cranial nerves: Yes CN's II-XII intact bilaterally Extrem General: Yes normal to inspection, Yes no clubbing, cyanosis or edema and Yes no calf tenderness Psych Appearance: grossly normal and well kempt Speech and movement: Normal speech and movement present Assessment & Plan Assessment & Plan (1) COPD (chronic obstructive pulmonary disease): Comment: PATIENT HAS CHRONIC OBSTRUCTIVE PULMONARY DISEASE, MODERATELY SEVERE . WELL CONTROLLED AND STABLE AT THIS TIME. Code(s): J44.9 - Chronic obstructive pulmonary disease, unspecified Category: Medical Plan: CONTINUE USING ADVAIR 250-51 INHALATION B.I.D. INCRUSE ELLIPTA 1 INHALATION DAILY ALBUTEROL HFA 2 PUFFS Q 4-6 HOURS ONLY P.R.N. (2) Smoker: Comment: HAS HISTORY OF LIFELONG SMOKING. FINALLY QUIT SINCE SURGERY ON 03/18/2023 DENIES ANY URGE TO GO BACK TO SMOKING. Code(s): F17.200 - Nicotine dependence, unspecified, uncomplicated Category: Social Hx Plan: COMMENDED FOR QUITTING SMOKING COMPLETELY (3) Hypoxemia: Comment: POST SURGICAL PROCEDURE ,SHE WAS FOUND TO HAVE MILD HYPOXEMIA ON EXERTION. SHE HAS BEEN STARTED. ON O2 1 L/MINUTE NOW PATIENT DOES NOT USE OXYGEN, EXCEPT IF SHE FEELS HAVING RESPIRATORY DISTRESS. 6 MINUTES WALK TEST ON HER LAST VISIT DID INDICATE THAT SHE QUALIFIES FOR USING OXYGEN. BUT BECAUSE SHE DOES NOT WALK MUCH, SHE HAS NOT FELT THE NEED TO USE THE PORTABLE O2. Code(s): R09.02 - Hypoxemia Category: Medical Plan: ABOVE (4) Pulmonary nodule: Comment: STATUS POST DAVINCI PROCEDURE AND LEFT LOWER LOBECTOMY, BIOPSY REPORT: NODULE WAS ADENO CARCINOMA, REMOVED COMPLETELY. PATIENT WOULD NEED SURVEILLANCE WITH CT SCANS FOR 5 YEARS. Code(s): R91.1 - Solitary pulmonary nodule Category: Medical Plan: WILL CONTINUE TO FOLLOW-UP WITH DR. HARRIS AT [facility]. Coding Level of Care Code Est Pt Level 3 (56899) Diagnoses COPD (chronic obstructive pulmonary disease) J44.9 Smoker F17.200 Hypoxemia R09.02 Pulmonary nodule R91.1
[2023-11-11 10:43] VITALS: BP 110/60; PULSE 85; O2SAT 92; BMI 30.1
--- NOTE | 2023-11-11 11:15 | A.OFFVIS_ITS ---
Vital Signs 11/11/23 10:43 Height 5 ft 5 in Weight 181 lb BMI 30.1 BP 110/60 Blood Pressure Location Lt brachial Position Sitting Pulse 85 Pulse Source Pulse Oximeter Pulse Oximetry (%) 92 Oxygen Delivery Method Room Air Intake Visit Reasons: COPD Allergies ciprofloxacin [From CIPRO] Allergy (Severe, Verified 11/11/23 11:00) ANAPHYLAXIS Medication List - Last Reconciled 11/11/23 by Naomi Floyd MD albuterol sulfate 90 mcg/actuation 2 puffs inhalation Q4-6H PRN 30 days aspirin 81 mg PO DAILY atorvastatin 40 mg PO BEDTIME bisacodyl (Dulcolax (bisacodyl)) 10 mg (2 x 5 mg) PO ONCE 1 day calcium carbonate-vitamin D3 600 mg-10 mcg (400 unit) 1 tab PO BEDTIME cilostazol 50 mg PO BID fluoxetine 40 mg PO BEDTIME fluticasone propion-salmeterol 250-50 mcg/dose 1 inh inhalation BID gabapentin 300 mg PO DAILY hydralazine 25 mg PO BID hydroxyzine pamoate 25 mg PO TID insulin glargine (Lantus U-100 Insulin) 10 units subcut BEDTIME insulin syringe-needle U-100 (BD Veo Insulin Syringe Ultra-Fine) As directed lisinopril 40 mg PO DAILY metformin 1,000 mg PO BID methylcellulose (laxative) (Fiber Laxative (methylcellulose)) 500 mg PO BID metoprolol tartrate 50 mg PO BID nicotine 1 patch transdermal DAILY 28 days omeprazole 20 mg PO DAILY polyethylene glycol 3350 (Miralax) 238 grams PO ONCE 1 day psyllium husk 1 tbsp PO DAILY 60 days sitagliptin phosphate (Januvia) 50 mg PO DAILY umeclidinium 62.5 mcg/actuation (Incruse Ellipta) 1 inh inhalation DAILY PFS Medical History Hypoxemia History of uterine cancer Type 2 diabetes mellitus, with long-term current use of insulin COPD (chronic obstructive pulmonary disease) Smoker PVD (peripheral vascular disease) Osteoporosis Family history of colon cancer Anxiety Dyslipidemia HTN (hypertension) Surgical History History of lung surgery History of bunionectomy of left great toe History of colonoscopy History of pubovaginal sling History of hysterectomy Family History Brother Colon cancer Social History Household Members: None Alcohol intake: never Patient Tobacco Use Status: Former Tobacco user Tobacco use type: Cigarette Cigarettes Per Day: 15 Physical Exam Vital Signs: Last Vital Signs Pulse 85 11/11/23 10:43 BP 110/60 11/11/23 10:43 Pulse Ox 92 11/11/23 10:43 Oxygen Delivery Method Room Air 11/11/23 10:43 BMI result Body Mass Index 30.1 Quality Reporting (2019) Adult ([facility] 138/08/27/68) Body Mass Index: 30.1 Assessment & Plan Assessment & Plan (1) COPD (chronic obstructive pulmonary disease): Comment: PATIENT HAS CHRONIC OBSTRUCTIVE PULMONARY DISEASE, MODERATELY SEVERE . WELL CONTROLLED AND STABLE AT THIS TIME. Code(s): J44.9 - Chronic obstructive pulmonary disease, unspecified Category: Medical (2) Smoker: Comment: HAS HISTORY OF LIFELONG SMOKING. FINALLY QUIT SINCE SURGERY ON 03/18/2023 DENIES ANY URGE TO GO BACK TO SMOKING. Code(s): F17.200 - Nicotine dependence, unspecified, uncomplicated Category: Social Hx (3) Hypoxemia: Comment: POST SURGICAL PROCEDURE ,SHE WAS FOUND TO HAVE MILD HYPOXEMIA ON EXERTION. SHE HAS BEEN STARTED. ON O2 1 L/MINUTE NOW PATIENT DOES NOT USE OXYGEN, EXCEPT IF SHE FEELS HAVING RESPIRATORY DISTRESS. 6 MINUTES WALK TEST ON HER LAST VISIT DID INDICATE THAT SHE QUALIFIES FOR USING OXYGEN. BUT BECAUSE SHE DOES NOT WALK MUCH, SHE HAS NOT FELT THE NEED TO USE THE PORTABLE O2. Code(s): R09.02 - Hypoxemia Category: Medical Plan: PATIENT DOES HAVE O2 EQUIPMENT. AT HOME SHE IS ADVISED TO USE O2 1 L/MINUTE NEEDED. (4) Pulmonary nodule: Comment: STATUS POST DAVINCI PROCEDURE AND LEFT LOWER LOBECTOMY, BIOPSY REPORT: NODULE WAS ADENO CARCINOMA, REMOVED COMPLETELY. Code(s): R91.1 - Solitary pulmonary nodule Category: Medical Plan: PATIENT WOULD NEED SURVEILLANCE WITH CT SCANS FOR 5 YEARS. Coding Level of Care Code Est Pt Level 3 (17432) Diagnoses COPD (chronic obstructive pulmonary disease) J44.9 Smoker F17.200 Hypoxemia R09.02 Pulmonary nodule R91.1
== END 2023-11-11 10:59 | disposition home or self-care (01) ==
PROVIDERS: Visit Provider Internal Medicine
DX: J44.9 Chronic obstructive pulmonary disease, unspecified (principal); F17.200 Nicotine dependence, unspecified, uncomplicated; R09.02 Hypoxemia; R91.1 Solitary pulmonary nodule
CPT/HCPCS: 99213

== ENCOUNTER → 2023-11-11 10:33 | Outpatient (BNVA) | payer OTHER, SELFPAY | PROVIDERS: Visit Provider Internal Medicine | DX: J44.9 Chronic obstructive pulmonary disease, unspecified (principal); R09.02 Hypoxemia; R91.1 Solitary pulmonary nodule; F17.210 Nicotine dependence, cigarettes, uncomplicated | CPT/HCPCS: 99212 ==

== ENCOUNTER 2023-12-02 12:58 | Outpatient (AMB) | payer OTHER, SELFPAY ==
[2023-12-02 13:01] VITALS: BP 126/59; PULSE 75
--- NOTE | 2023-12-02 13:01 | MHC.OFFVIS ---
Vital Signs 12/02/23 13:01 Height 5 ft 5 in Weight 180 lb BMI 30.0 BP 126/59 L Blood Pressure Location Lt brachial Position Sitting Pulse 75 Intake Visit Reasons: rediscuss colonoscopy Intake Note: Tete presents to in office visit today to rediscuss colonoscopy. CC: Patient denies having any GI concerns or symptoms today. Neuropsychology Director Required: Yes Neuropsychology Director Name: [id number] Rosalina Accompanied by: Daughter Allergies ciprofloxacin [From CIPRO] Allergy (Severe, Verified 12/02/23 13:08) ANAPHYLAXIS Medication List - Last Reconciled 12/02/23 by Trisha Young PA-C albuterol sulfate 90 mcg/actuation 2 puffs inhalation Q4-6H PRN 30 days aspirin 81 mg PO DAILY atorvastatin 40 mg PO BEDTIME calcium carbonate-vitamin D3 600 mg-10 mcg (400 unit) 1 tab PO BEDTIME cilostazol 50 mg PO BID fluoxetine 40 mg PO BEDTIME fluticasone propion-salmeterol 250-50 mcg/dose 1 inh inhalation BID gabapentin 300 mg PO DAILY hydralazine 25 mg PO BID hydroxyzine pamoate 25 mg PO TID insulin glargine (Lantus U-100 Insulin) 12 units subcut BEDTIME insulin syringe-needle U-100 (BD Veo Insulin Syringe Ultra-Fine) As directed lisinopril 40 mg PO DAILY metformin 1,000 mg PO BID methylcellulose (laxative) (Fiber Laxative (methylcellulose)) 500 mg PO BID metoprolol tartrate 50 mg PO BID nicotine 1 patch transdermal DAILY 28 days psyllium husk 1 tbsp PO DAILY 60 days sitagliptin phosphate (Januvia) 100 mg PO DAILY umeclidinium 62.5 mcg/actuation (Incruse Ellipta) 1 inh inhalation DAILY HPI Comments Details: 68-year-old female COPD- O2 prn- family history of colon cancer, personal history of adenoma colon polyps follows up Last seen 2021 after colonoscopy-she was to repeat colonoscopy however had canceled back in 2022 She presents today-constipation otherwise no GI concerns However she does follow with Pulmonary COPD history of lung biopsy benign She does have SOBOE-uses O2 prn-she is here today no O2 Appetite is good No nausea, vomiting, abdominal pain, hematemesis, hematochezia fever chills PFSH Medical History Hypoxemia History of uterine cancer Type 2 diabetes mellitus, with long-term current use of insulin COPD (chronic obstructive pulmonary disease) Smoker PVD (peripheral vascular disease) Osteoporosis Family history of colon cancer Anxiety Dyslipidemia HTN (hypertension) Surgical History History of lung surgery History of bunionectomy of left great toe History of colonoscopy History of pubovaginal sling History of hysterectomy Family History Brother Colon cancer Social History Household Members: None Alcohol intake: never Patient Tobacco Use Status: Former Tobacco user Tobacco use type: Cigarette Cigarettes Per Day: 15 Review of Systems Const All systems reviewed & are unremarkable except as noted in HPI and below Card Denies chest pain and Reports dyspnea on exertion Resp Reports dyspnea on exertion GI Denies abdominal pain, Denies heartburn, Reports nausea and Reports vomiting Physical Exam Vital Signs: Last Vital Signs Pulse 75 12/02/23 13:01 BP 126/59 L 12/02/23 13:01 BMI result Body Mass Index 30.0 Results Reviewed Results Reviewed: 12/2021- Dr. Lowe Findings: Terminal Ileum: Not evaluated Cecum:? Normal Ascending Colon:? A 2 - 2.5 cms sessile polyp at 90 cms - removed with a hot snare and polypectomy site was marked by jero ink. Scattered moderate diverticulosis throughout the colon. Transverse Colon:? Scattered moderate diverticulosis throughout the colon. Descending Colon:? Scattered moderate diverticulosis throughout the colon. Sigmoid Colon:? Severe diverticulosis with luminal narrowing Rectum:? Normal Ano-rectum:? Moderate internal hemorrhoids Lax anal sphincter on rectal exam Colon preparation:? Good after some irrigation Impression and Post Procedure Diagnosis: Colonoscopy Findings: One medium sized polyp removed. Random biopsies were obtained from the colon to check for microscopic colitis Moderate diverticulosis seen in the entire colon Moderate hemorrhoids on retroflexed exam. Lax anal sphincter on rectal exam Plan: Await pathology results [place] of a fibre supplement for diverticulosis Patient has an appointment on 01/09/22 in the GI Clinic with GERALDINE Reyna. If she continues to have fecal incontinence, she can be referred to [facility] for anorectal manometry with biofeedback. Repeat Colonoscopy interval based on path results - in 1 years if polyps are adenomatous to check polypectomy site in the AC. Name: Tete Segovia Age/Sex: 66/F Attending: Mario Lowe MD : 1955 Submitted by: Mario Lowe MD Copies to: Blanca Matson MD MR #: [id number] Status: [facility] Collected: 12/27/21 Location: [facility] Received: 12/27/21 Diagnosis A. Colon, right, biopsy: Colonic mucosa within normal limits; negative for microscopic colitis. B. Colon, ascending at 90 cm, polypectomy: Fragments of sessile serrated polyp. C. Colon, left, biopsy: Mild melanosis coli; otherwise colonic mucosa within normal limits; negative for microscopic colitis. Assessment & Plan Assessment & Plan (1) Colon polyps: Comment: (sessile/serrated polyp on 12/2021 scope) Code(s): K63.5 - Polyp of colon Category: Medical (2) Family history of colon cancer: Code(s): Z80.0 - Family history of malignant neoplasm of digestive organs Category: Medical Plan: Schedule repeat colonoscopy (3) COPD (chronic obstructive pulmonary disease): Comment: PATIENT HAS CHRONIC OBSTRUCTIVE PULMONARY DISEASE, MODERATELY SEVERE . WELL CONTROLLED AND STABLE AT THIS TIME. Get Pulmonary and anesthesia clearance prior to procedure Code(s): J44.9 - Chronic obstructive pulmonary disease, unspecified Category: Medical Plan: pulm clearance Plan Hold sitigliptin 2 days Metformin 1 Half dose insulin evening before No diabetes medication morning of pulm clearance Patient Instructions: Schedule repeat colonoscopy for polyp surveillance with Dr. Lowe anesthesia/pulmonary Hold sitigliptin 2 days Metformin 1 Half dose insulin evening before No diabetes medication morning of Anesthesia/ pulm clearance Coding Level of Care Code Est Pt Level 4 (06220) Diagnoses Colon polyps K63.5 Family history of colon cancer Z80.0 COPD (chronic obstructive pulmonary disease) J44.9 Time Spent (min) 35
== END 2023-12-02 15:10 | disposition home or self-care (01) ==
PROVIDERS: PCP Registered Nurse; Visit Provider Physician Assistant
DX: K63.5 Polyp of colon (principal); Z80.0 Family history of malignant neoplasm of digestive organs; J44.9 Chronic obstructive pulmonary disease, unspecified
CPT/HCPCS: 99214

== ENCOUNTER → 2023-12-02 12:58 | Outpatient (BNVA) | payer OTHER, SELFPAY | PROVIDERS: PCP Registered Nurse; Visit Provider Physician Assistant | DX: Z01.811 Encounter for preprocedural respiratory examination (principal); J44.9 Chronic obstructive pulmonary disease, unspecified; K63.5 Polyp of colon; Z80.0 Family history of malignant neoplasm of digestive organs | CPT/HCPCS: 99212 ==

== ENCOUNTER 2023-12-17 12:16 | Outpatient (AMB) | payer OTHER, SELFPAY ==
[2023-12-17 12:34] VITALS: BP 130/60; PULSE 88; BMI 30.4
--- NOTE | 2023-12-17 12:34 | HO.NEPHOV ---
Vital Signs 12/17/23 12:34 Height 5 ft 5 in Weight 183 lb BMI 30.4 BP 130/60 Blood Pressure Location Lt brachial Position Sitting Pulse 88 Pulse Source Pulse Oximeter Intake Visit Reasons: 3 mon follow up/ Conf Intake Note: Senior Net Developer Architect services refused, refusal form signed and scanned into chart. Senior Net Developer Architect Required: Yes Senior Net Developer Architect Name: Nevaeh Sanchez Accompanied by: Daughter Allergies ciprofloxacin [From CIPRO] Allergy (Severe, Verified 12/17/23 12:38) ANAPHYLAXIS HPI Comments Details: I had the privilege of seeing carlos Epstein, accompanied by her daughter, in follow up for hypomagnesemia. She has longstanding history of hypertension and diabetes mellitus. She was on proton pump inhibitor which has been discontinued. She denies nausea, vomiting or diarrhea. She has no history of calcium disorders. She has not been taking any diuretics. She has history of lung cancer and had undergone surgery. She never received any chemotherapy. She has no history of nephrocalcinosis. She has no family history of hypomagnesemia. She has history of excessive alcohol intake for a long time but currently does not drink at all. Her blood pressure has been at goal. Lately her serum potassium was 5.2 and was found to have microalbuminuria as well. She does not have any chest pain, shortness of breath, palpitation, syncope or history of cardiac dysfunction. She denied any active complaints during the time of this office visit. [facility] Medical History Hypoxemia History of uterine cancer Type 2 diabetes mellitus, with long-term current use of insulin COPD (chronic obstructive pulmonary disease) Smoker PVD (peripheral vascular disease) Osteoporosis Family history of colon cancer Anxiety Dyslipidemia HTN (hypertension) Surgical History History of lung surgery History of bunionectomy of left great toe History of colonoscopy History of pubovaginal sling History of hysterectomy Family History Brother Colon cancer Social History Household Members: None Alcohol intake: never Patient Tobacco Use Status: Former Tobacco user Tobacco use type: Cigarette Cigarettes Per Day: 15 Physical Exam Vital Signs: Last Vital Signs Pulse 88 12/17/23 12:34 BP 130/60 12/17/23 12:34 BMI result Body Mass Index 30.4 Const General: comfortable and no acute distress Orientation/consciousness: patient oriented x3 HEENT Head: Yes normocephalic Mouth: Normal oral and palatal mucosa present Eyes EOM: EOMs intact bilaterally Neck Neck: Yes supple Resp Auscultation: clear to auscultation bilaterally Cardio Jugular venous distension: no JVD Rate: regular rate GI Palpation (GI): Soft to palpation Auscultation: normal bowel sounds General: Yes no CVA tenderness Back/Spine/Pelvis Back: no CVA tenderness Skin General skin exam: no rashes or lesions noted Neuro General: patient oriented x3 and moves all extremities Extrem General: Yes no pedal edema Results Reviewed Nephrology Results: Sodium 140 mmol/L (135-145) 09/07/23 Potassium 5.2 mmol/L (3.3-5.1) H 09/07/23 Chloride 101 mmol/L (96-108) 09/07/23 Carbon Dioxide 28 mmol/L (22-29) 09/07/23 BUN 18 mg/dL (9-16) H 09/07/23 Creatinine 0.98 mg/dL (0.5-1.4) 09/07/23 Calcium 9.9 mg/dL (8.4-10.2) 09/07/23 Assessment & Plan Assessment & Plan (1) Hypomagnesemia: Code(s): E83.42 - Hypomagnesemia Category: Medical (2) Proteinuria: Code(s): R80.9 - Proteinuria, unspecified Category: Medical Qualifiers: Proteinuria type: other Qualified Code(s): R80.8 - Other proteinuria Plan Tete most likely has 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 She also has been taking proton pump inhibitor which I during previous visit. I ordered follow up lab work . She has been taking [id number] 100 mg magnesium if he had a which I asked her to take 200 mg daily. Her blood pressure has been at goal on current medication regimen. Her serum potassium had been high normal. 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 I did not make any other medication changes today but ordered follow up lab work. All her and her daughter's questions were answered. Orders: Orders Blood Urea Nitrogen Today E83.42 - Hypomagnesemia, R80.8 - Other proteinuria Calcium Today E83.42 - Hypomagnesemia, R80.8 - Other proteinuria Phosphorus Today E83.42 - Hypomagnesemia, R80.8 - Other proteinuria Creatinine Today E83.42 - Hypomagnesemia, R80.8 - Other proteinuria Electrolytes Today E83.42 - Hypomagnesemia, R80.8 - Other proteinuria Magnesium Today E83.42 - Hypomagnesemia, R80.8 - Other proteinuria Coding Level of Care Code Est Pt Level 4 (72345) Diagnoses Hypomagnesemia E83.42 Other proteinuria R80.8 Proteinuria type: other
== END 2023-12-17 13:02 | disposition home or self-care (01) ==
PROVIDERS: PCP Registered Nurse; Visit Provider Internal Medicine Nephrology
DX: E83.42 Hypomagnesemia (principal); R80.8 Other proteinuria
CPT/HCPCS: 99214

== ENCOUNTER 2023-12-17 13:04 | Outpatient (REF) | payer OTHER, SELFPAY ==
[2023-12-17 15:26] LABS: Creatinine Urine 223.37 mg/dL; Protein/Creatinine Ratio, Ur 0.11 (<0.2); Total Protein Urine Random 25 mg/dL (<12)
[2023-12-17 16:26] LABS: Osmolality Urine 624 mosm/kg (373-1093)
[2023-12-17 17:51] LABS: Osmolality, Serum 304 mosm/kg (281-305)
[2023-12-17 18:08] LABS: Anion Gap 16 (12-20); Blood Urea Nitrogen 23 mg/dL (9-16); Calcium 9.8 mg/dL (8.4-10.2); Carbon Dioxide 29 mmol/L (22-29); Chloride 99 mmol/L (96-108); Estimated Glomerular Filt Rate 54; Magnesium 1.4 mg/dL (1.6-2.6); Phosphorus 3.3 mg/dL (2.7-4.5); Potassium 4.7 mmol/L (3.3-5.1); Sodium 139 mmol/L (135-145)
[2023-12-20 01:19] LABS: Creatinine, Random Urine 205 mg/dL (20-275); Magnesium, Random Urine 79 mg/g creat (22-130)
== END 2023-12-17 13:05 | disposition home or self-care (01) ==
LOC: HO.HKASLDS 13:04
PROVIDERS: Visit Provider Internal Medicine Nephrology
DX: E83.42 Hypomagnesemia (principal); R80.8 Other proteinuria; I10 Essential (primary) hypertension
CPT/HCPCS: 36415; 80051; 82310; 82565; 82570; 83735; 83930; 83935; 84100; 84156; 84520; 99212

== ENCOUNTER 2023-12-21 15:26 | Emergency (ER) | payer OTHER, SELFPAY ==
[2023-12-21] VITALS (8 sets, daily range): BP systolic 110–138; BP diastolic 60–76; PULSE 69–90; RESP 16–20; TEMP 36.8–36.9; O2SAT 92–97; BMI 35.6
--- NOTE | ~2023-12-21 | XR_ITS ---
EXAMINATION: XR CHEST CLINICAL INFORMATION: Cough and shortness of breath COMPARISON: CXR from 08/11/2014. Chest CT from 02/09/2023. TECHNIQUE: 2 views of the chest were obtained. FINDINGS: The emphysematous lung disease is better depicted on the chest CT from 02/09/2023. Bronchial zimmer are chronically thickened. The opacity at the left lateral base corresponds to the paracardiac fat pad and there is suboptimal definition of the lateral costophrenic sulcus from either mild atelectasis in the inferior lingula or trace left pleural effusion. However, no pleural effusion is seen along lateral view. An opacity projecting over the lower thoracic spine on the lateral view is suspicious for airspace disease in the retrocardiac region of the left lower lobe. Cardiac silhouette is normal in size. There is atherosclerotic calcification of the aorta. No acute osseous abnormality. XR/XR chest 2V IMPRESSION: * Chronic emphysematous lung disease. * An opacity in a lower lobe (likely left lower lobe) seen on the lateral view could represent pneumonia if in the proper clinical context.
--- NOTE | 2023-12-21 15:49 | ECG_ITS ---
Test Reason : DIZZY Blood Pressure : / mmHG Vent. Rate : 079 BPM Atrial Rate : 079 BPM P-R Int : 156 ms QRS Dur : 100 ms QT Int : 418 ms P-R-T Axes : 051 -08 006 degrees QTc Int : 479 ms Sinus rhythm with Premature supraventricular complexes Left ventricular hypertrophy Lateral ST depressions- consider ischemia. Abnormal ECG When compared to the previous EKG of Lateral ST depressions present Referred By: Generic ED Physician Electronically Signed By:Fan Guillory
[2023-12-21 16:15] LABS: MANUAL DIFF FLAG NO
[2023-12-21 16:23] LABS: Basophils Percent Auto 0.3 % (0-2); Eosinophils Absolute Auto 0.1 X10*3/uL (0.0-0.4); Eosinophils Percent Auto 0.7 % (0-4); Hemoglobin 9.6 g/dl (12.0-16.0); Imm Gran Abs Auto 0.07 X10*3/uL (0.00-0.03); Imm Gran Pct Auto 0.7 % (0.0-0.4); Lymphocytes Absolute Auto 2.1 X10*3/uL (1.2-4.9); Lymphocytes Percent Auto 19.4 % (20-40); Mean Corpuscular Hemoglobin 26.5 pg (27.0-33.0); Mean Corpuscular Volume 82.9 fL (80.0-98.0); Mean Platelet Volume 10.3 fL (9.4-12.3); Monocytes Absolute Auto 1.1 X10*3/uL (0.1-1.2); Monocytes Percent Auto 9.8 % (2-11); Neutrophils Absolute Auto 7.4 x10*3/uL (2.0-8.3); Neutrophils Percent Auto 69.1 % (45-73); Platelet Count 263 X10*3/uL (160-400); Red Blood Count 3.62 X10*6/uL (4.20-5.50); Red Cell Distribution Width 14.6 % (11.0-16.0); White Blood Count 10.7 X10*3/uL (4.8-10.8)
[2023-12-21 16:32] LABS: Alanine Aminotransferase 8 U/L (0-31); Albumin Level 3.5 g/dL (3.5-5.0); Alkaline Phosphatase 67 U/L (39-117); Anion Gap 11 (12-20); Aspartate Amino Transferase 10 U/L (5-31); Bilirubin Total 0.2 mg/dL (0.0-1.0); Blood Urea Nitrogen 18 mg/dL (9-16); Calcium 8.5 mg/dL (8.4-10.2); Carbon Dioxide 29 mmol/L (22-29); Chloride 104 mmol/L (96-108); Creatinine Clr Calc Pharmacy 51.6; Estimated Glomerular Filt Rate 54; Glucose Random 278 mg/dL (60-115); Lipase 16 U/L (8-78); Potassium 4.7 mmol/L (3.3-5.1); Sodium 139 mmol/L (135-145); Total Protein 6.9 g/dL (6.5-8.0)
--- NOTE | 2023-12-21 16:32 | ED_ITS ---
HPI - General Adult General Chief complaint: Weakness Stated complaint: WEAKNESS DEHYDRATION Time Seen by Provider: 12/21/23 16:04 Source: patient, family, RN notes reviewed, old records reviewed and language interpreter Mode of arrival: EMS Limitations: language barrier History of Present Illness ED Provider: Perri HPI narrative: 68-year-old female with past medical history significant for COPD, not on supplemental O2, hypertension, hyperlipidemia, diabetes, previous pulmonary nodule presents for evaluation of weakness Per the patient and her daughter who is bedside, the patient has been feeling weak and dizzy for the last 3-4 days 2 days ago she developed a cough that has been nonproductive The patient has had increased weakness since then She reports vomiting 1 time after a period of coughing Denies any fevers or chills She also endorses sore throat Denies any chest pain or abdominal pain The patient's daughter has similar symptoms that include congestion, dry cough and mild body aches No other complaints or concerns at this time Related Data Home Medications ?Medication ?Instructions ?Recorded ?Confirmed aspirin 81 mg tablet,delayed 81 mg PO DAILY 08/29/21 05/14/23 release atorvastatin 40 mg tablet 40 mg PO BEDTIME 08/29/21 05/14/23 calcium carbonate 600 mg-vitamin 1 tab PO BEDTIME 08/29/21 05/14/23 D3 10 mcg (400 unit) tablet cilostazol 50 mg tablet 50 mg PO BID 08/29/21 05/14/23 fluoxetine 40 mg capsule 40 mg PO BEDTIME 08/29/21 01/02/23 gabapentin 300 mg capsule 300 mg PO DAILY 08/29/21 05/14/23 hydralazine 25 mg tablet 25 mg PO BID 08/29/21 01/02/23 hydroxyzine pamoate 25 mg capsule 25 mg PO TID 08/29/21 01/02/23 insulin syringe-needle U-100 1/2 #10 ea 08/29/21 01/02/23 mL 31 gauge x 15/64 (BD Veo Insulin Syringe Ultra-Fine) lisinopril 40 mg tablet 40 mg PO DAILY 08/29/21 01/02/23 metformin 1,000 mg tablet 1,000 mg PO BID 08/29/21 01/02/23 fluticasone 250 mcg-salmeterol 50 1 inh inhalation BID 05/14/23 05/14/23 mcg/dose blistr powdr for inhalation metoprolol tartrate 25 mg tablet 50 mg PO BID 05/14/23 05/14/23 umeclidinium 62.5 mcg/actuation 1 inh inhalation DAILY 05/14/23 05/14/23 blister powder for inhalation (Incruse Ellipta) insulin glargine 100 unit/mL 12 unit subcut BEDTIME 12/02/23 subcutaneous solution (Lantus U-100 Insulin) sitagliptin phosphate 100 mg 100 mg PO DAILY 12/02/23 tablet (Januvia) Previous Rx's ?Medication ?Instructions ?Recorded psyllium husk 2.6 gram/4.1 gram 1 tbsp PO DAILY 60 days #480 grams 12/27/21 oral powder albuterol sulfate 90 mcg/actuation 2 puff inhalation Q4-6H PRN 06/09/22 aerosol inhaler shortness of breath or wheezing 30 days #8.5 grams methylcellulose (laxative) 500 mg 500 mg PO BID #60 tabs 10/01/22 tablet (Fiber Laxative (methylcellulose)) nicotine 14 mg/24 hr daily 1 patch transdermal DAILY 05/04/23 transdermal patch CIGARETTES CRAVING 28 days #28 ea amoxicillin 875 mg-potassium 1 tab PO Q12H #13 tabs 12/21/23 clavulanate 125 mg tablet azithromycin 250 mg tablet 250 mg PO DAILY 4 days #4 tabs 12/21/23 Allergies Allergy/AdvReac Type Severity Reaction Status Date / Time ciprofloxacin [From CIPRO] Allergy Severe ANAPHYLAXIS Verified 12/21/23 15:46 Review of Systems 2 Constitutional: Constitutional: Reports body ache(s), Denies chills, Denies fever(s) and Denies headache(s) Eyes: Eyes: Denies blurry vision ENT: Reports dizziness, Denies headache(s), Reports nasal congestion and Reports sore throat Cardiovascular: Cardiovascular: Denies chest pain and Denies dyspnea Respiratory: Respiratory: Reports cough and Denies dyspnea Gastrointestinal: Gastrointestinal: Denies abdominal pain, Denies nausea and Reports vomiting Genitourinary: Genitourinary: Denies urinary frequency and Denies difficulty voiding Musculoskeletal: Musculoskeletal: Denies back pain Integumentary/Breasts: Skin/Breast: Denies rash Neurologic: Reports dizziness and Denies headache(s) REPLACED BY [facility] Past Medical History Medical History Hypoxemia History of uterine cancer Type 2 diabetes mellitus, with long-term current use of insulin COPD (chronic obstructive pulmonary disease) Smoker PVD (peripheral vascular disease) Osteoporosis Family history of colon cancer Anxiety Dyslipidemia HTN (hypertension) Surgical History History of lung surgery History of bunionectomy of left great toe History of colonoscopy History of pubovaginal sling History of hysterectomy Family History Family History Brother Colon cancer Social History Social History Household Members: None Alcohol intake: never Patient Tobacco Use Status: Former Tobacco user Tobacco use type: Cigarette Cigarettes Per Day: 15 Use of substances other than those prescribed or required for medical reasons: No Advance Directives: No Advance Directives Information Provided: Yes Physical Exam ED Vital Signs: Vital Signs - 24 hr 12/21/23 15:43 12/21/23 17:24 Temperature 98.5 F Pulse Rate 82 73 Respiratory Rate 16 18 Blood Pressure 125/60 127/61 Pulse Oximetry 92 93 Oxygen Delivery Method Room Air Room Air BMI result Body Mass Index 35.6 Const General: healthy appearing, comfortable, no acute distress, alert and awake Nutritional Appearance: well nourished Orientation/consciousness: patient oriented x3 HENMT Head: Yes normocephalic and Yes atraumatic Throat: Yes posterior oropharynx normal Eyes Eyelids: Yes eyelids normal Conjunctivae: conjunctivae normal Sclerae: sclerae normal Corneas: corneas normal Pupils: Equal, round and reactive pupils present EOM: EOMs intact bilaterally Neck Neck: Yes full ROM Resp Effort & Inspection: normal respiratory effort, able to speak in complete sentences, no audible wheezes, not labored and tachypneic Auscultation: clear to auscultation bilaterally Cardio Rate: regular rate Rhythm: regular rhythm GI Inspection: No distended Palpation (GI): Soft to palpation, not firm, nontender, no guarding and not rigid Skin General skin exam: no rashes or lesions noted and elasticity normal Neuro General: patient oriented x3 Cranial nerves: Yes Equal, round and reactive pupils present and Yes Bilaterally intact EOM present Cognition (Neuro): normal cognition Extrem Other: Moving all extremities well without any obvious deformities Course Reevaluation(s) Reevaluation #1: The patient did have an abnormal EKG, the patient's daughter states the patient always has an abnormal EKG. We have no previous for comparison. She has not had any chest pain, her trope is within normal limits despite her symptoms for 3 days, she ruled out for ACS. Furthermore, the patient has community-acquired pneumonia on chest x-ray which explains her symptoms. She follows with cardiology and may follow-up regarding her abnormal EKG Time: 18:37 Medical Decision Making Medical Decision Making [facility] Narrative: 68-year-old female with past medical history as documented above presents for evaluation of weakness, cough, body aches. Her vital signs on arrival to the ED are within normal limits, per EMS she was slightly hypotensive that improved with IV fluids. Plan for basic labs, EKG, chest x-ray, viral swabs, strep throat swab, orthostatic vital signs. Further workup as indicated Differential Diagnosis Differential Diagnoses: The differential diagnosis associated with the presentation includes Viral syndrome Upper respiratory infection Pharyngitis Strep pharyngitis COVID Influenza Pneumonia Bronchitis Dehydration [facility] Admission/Observation Consideration of admission/observation: Escalation of care including admission/observation considered Has a history of COPD and left lower lobe infiltrate. However, she is not septic, she has not hypoxic and is able to tolerate p.o. she does not meet criteria for admission at this time Lab Data [facility] Lab Attestation statement: I reviewed the patient's lab results. No leukocytosis. The patient is mildly anemic with a hemoglobin 9.6 and hematocrit 30.0. He has a normocytic anemia. She does have a history of anemia. Electrolytes are reassuring, BUN is slightly elevated to 18 but this is consistent with her baseline, creatinine within normal limits. Glucose is elevated to 78 with no evidence of DKA. She has a known diabetic troponin is within normal range at 3.7 and the patient does not have any chest pain 12/21/23 16:04 12/21/23 16:04 Labs: Lab Results 12/21/23 12/21/23 12/21/23 Range/Units 16:04 16:08 16:44 WBC 10.7 (4.8-10.8) X10*3/uL RBC 3.62 L (4.20-5.50) X10*6/uL Hgb 9.6 L (12.0-16.0) g/dl Hct 30.0 L (37.0-47.0) % MCV 82.9 (80.0-98.0) fL MCH 26.5 L (27.0-33.0) pg MCHC 32.0 (31.0-35.0) g/dl RDW 14.6 (11.0-16.0) % Plt Count 263 (160-400) X10*3/uL MPV 10.3 (9.4-12.3) fL Immature Gran % (Auto) 0.7 H (0.0-0.4) % Neut % (Auto) 69.1 (45-73) % Lymph % (Auto) 19.4 L (20-40) % [place] % (Auto) 9.8 (2-11) % Eos % (Auto) 0.7 (0-4) % Baso % (Auto) 0.3 (0-2) % Lymph # (Auto) 2.1 (1.2-4.9) X10*3/uL [place] # (Auto) 1.1 (0.1-1.2) X10*3/uL Eos # (Auto) 0.1 (0.0-0.4) X10*3/uL Baso # (Auto) 0.0 (0.0-0.2) X10*3/uL Abs Immat Gran (auto) 0.07 H (0.00-0.03) X10*3/uL Absolute Neuts (auto) 7.4 (2.0-8.3) x10*3/uL Absolute Nucleated RBC 0.000 (0.0-0.012) X10*3/uL Nucleated RBC % (auto) 0.0 (0.0-0.2) /100WBC Sodium 139 (135-145) mmol/L Potassium 4.7 (3.3-5.1) mmol/L Chloride 104 (96-108) mmol/L Carbon Dioxide 29 (22-29) mmol/L Anion Gap 11 L (12-20) BUN 18 H (9-16) mg/dL Creatinine 1.02 (0.5-1.4) mg/dL Estim Creat Clear Calc 51.6 Estimated GFR 54 Random Glucose 278 H (60-115) mg/dL Calcium 8.5 D (8.4-10.2) mg/dL Total Bilirubin 0.2 (0.0-1.0) mg/dL AST 10 (5-31) U/L ALT 8 (0-31) U/L Alkaline Phosphatase 67 (39-117) U/L Troponin I High Sens 3.7 (<3.5-17.0) ng/L Total Protein 6.9 (6.5-8.0) g/dL Albumin 3.5 (3.5-5.0) g/dL Lipase 16 (8-78) U/L Urine Color Yellow Urine Appearance Clear Urine pH 5.0 (5.0-9.0) Ur Specific [place] 1.015 (1.005-1.025) Urine Protein Trace (Neg-Trace) mg/dL Urine Glucose (UA) 500 H (Negative) mg/dL Urine Ketones Negative (Negative) mg/dL Urine Blood Negative (Negative) Urine Nitrite Negative (Negative) Ur Leukocyte Esterase Trace H (Negative) Urine RBC 0-2 (0-2) /HPF Urine WBC 0-5 (0-5) /HPF Ur Squamous Epith Cells 3-5 (0-2) /HPF Urine Bacteria Trace (None Seen) Hyaline Casts 0-2 (0-2) /LPF Influenza Type A (PCR) NEGATIVE (Negative) Influenza Type B (PCR) NEGATIVE (Negative) RSV RNA Qual (PCR) NEGATIVE (Negative) SARS-CoV-2 RNA (RT-PCR) NEGATIVE (Negative) S. pyogenes GrpA TAYLER (Negative) 12/21/23 Range/Units 17:24 WBC (4.8-10.8) X10*3/uL RBC (4.20-5.50) X10*6/uL Hgb (12.0-16.0) g/dl Hct (37.0-47.0) % MCV (80.0-98.0) fL MCH (27.0-33.0) pg MCHC (31.0-35.0) g/dl RDW (11.0-16.0) % Plt Count (160-400) X10*3/uL MPV (9.4-12.3) fL Immature Gran % (Auto) (0.0-0.4) % Neut % (Auto) (45-73) % Lymph % (Auto) (20-40) % [place] % (Auto) (2-11) % Eos % (Auto) (0-4) % Baso % (Auto) (0-2) % Lymph # (Auto) (1.2-4.9) X10*3/uL [place] # (Auto) (0.1-1.2) X10*3/uL Eos # (Auto) (0.0-0.4) X10*3/uL Baso # (Auto) (0.0-0.2) X10*3/uL Abs Immat Gran (auto) (0.00-0.03) X10*3/uL Absolute Neuts (auto) (2.0-8.3) x10*3/uL Absolute Nucleated RBC (0.0-0.012) X10*3/uL Nucleated RBC % (auto) (0.0-0.2) /100WBC Sodium (135-145) mmol/L Potassium (3.3-5.1) mmol/L Chloride (96-108) mmol/L Carbon Dioxide (22-29) mmol/L Anion Gap (12-20) BUN (9-16) mg/dL Creatinine (0.5-1.4) mg/dL Estim Creat Clear Calc Estimated GFR Random Glucose (60-115) mg/dL Calcium (8.4-10.2) mg/dL Total Bilirubin (0.0-1.0) mg/dL AST (5-31) U/L ALT (0-31) U/L Alkaline Phosphatase (39-117) U/L Troponin I High Sens (<3.5-17.0) ng/L Total Protein (6.5-8.0) g/dL Albumin (3.5-5.0) g/dL Lipase (8-78) U/L Urine Color Urine Appearance Urine pH (5.0-9.0) Ur Specific [place] (1.005-1.025) Urine Protein (Neg-Trace) mg/dL Urine Glucose (UA) (Negative) mg/dL Urine Ketones (Negative) mg/dL Urine Blood (Negative) Urine Nitrite (Negative) Ur Leukocyte Esterase (Negative) Urine RBC (0-2) /HPF Urine WBC (0-5) /HPF Ur Squamous Epith Cells (0-2) /HPF Urine Bacteria (None Seen) Hyaline Casts (0-2) /LPF Influenza Type A (PCR) (Negative) Influenza Type B (PCR) (Negative) RSV RNA Qual (PCR) (Negative) SARS-CoV-2 RNA (RT-PCR) (Negative) S. pyogenes GrpA TAYLER Negative (Negative) Independent Interpretation I performed an independent interpretation of an: EKG and Plain X-Ray (Agree with Radiology interpretation, left lower lobe infiltrate) Interpretation: Sinus rhythm with a rate of [address] depressions in the lateral leads. No previous for comparison Radiology Impression Discussion of test interpretation with radiology: I have reviewed the radiologist's reading. Radiologist Impression: XR/XR chest 2V IMPRESSION: * Chronic emphysematous lung disease. * An opacity in a lower lobe (likely left lower lobe) seen on the lateral view could represent pneumonia if in the proper clinical context. Discharge Plan Discharge Clinical Impression: Weakness, Community acquired pneumonia Patient Disposition: Home, Self-Care Instructions: Community Acquired Pneumonia (ED) Additional Instructions: Your blood work was reassuring. Your x-ray did show left lower lobe pneumonia. Take both antibiotics as prescribed. Take all of your other medications as prescribed Follow-up with your primary doctor, return for new or worsening symptoms Prescriptions: New azithromycin 250 mg tablet 250 mg PO DAILY 4 Days Qty: 4 0RF Rx Instructions: start on day 2 of therapy amoxicillin-pot clavulanate 875-125 mg tablet 1 tab PO Q12H Qty: 13 0RF No Action psyllium husk 2.6 gram/4.1 gram powder 1 tbsp PO DAILY 60 Days Qty: 480 1RF Rx Instructions: mix into at least 8 oz of water or juice before administering Fiber Laxative(methylcellulos) 500 mg tablet 500 mg PO BID Qty: 60 5RF (DME) insulin syringe-needle U-100 [BD Veo Insulin Syringe UF] 1/2 mL 31 gauge x 15/64 syringe See Rx Instructions .ROUTE .MEDSUPPLY Qty: 10 Rx Instructions: As directed calcium carbonate-vitamin D3 600 mg-10 mcg (400 unit) tablet 1 tab PO BEDTIME hydroxyzine pamoate 25 mg capsule 25 mg PO TID lisinopril 40 mg tablet 40 mg PO DAILY gabapentin 300 mg capsule 300 mg PO DAILY hydralazine 25 mg tablet 25 mg PO BID metformin 1,000 mg tablet 1,000 mg PO BID cilostazol 50 mg tablet 50 mg PO BID atorvastatin 40 mg tablet 40 mg PO BEDTIME fluoxetine 40 mg capsule 40 mg PO BEDTIME aspirin 81 mg tablet,delayed release (DR/EC) 81 mg PO DAILY metoprolol tartrate 25 mg tablet 50 mg PO BID Lantus U-100 Insulin 100 unit/mL solution 12 unit subcut BEDTIME albuterol sulfate 90 mcg/actuation HFA aerosol inhaler 2 puff inhalation Q4-6H PRN (Reason: shortness of breath or wheezing) 30 Days Qty: 8.5 3RF nicotine 14 mg/24 hr patch 24 hour 1 patch transdermal DAILY 28 Days Qty: 28 2RF Incruse Ellipta 62.5 mcg/actuation blister with device 1 inh inhalation DAILY fluticasone propion-salmeterol 250-50 mcg/dose blister with device 1 inh inhalation BID Januvia 100 mg tablet 100 mg PO DAILY Print Language: Shayna Danish
[2023-12-21 16:50] LABS: Appearance Urine Clear; Color Urine Yellow; Glucose Urine UA 500 mg/dL (Negative); Leukocyte Esterase Urine Trace (Negative); Nitrite Urine Negative (Negative); Specific Gravity - Urine 1.015 (1.005-1.025); UMIC TRIGGER UACC YES; Urine Blood Negative (Negative); Urine Ketones Negative (Negative); Urine Protein Trace mg/dL (Neg-Trace)
[2023-12-21 16:52] LABS: Bacteria Urine Trace (None Seen); Hyaline Casts Urine 0-2 /LPF (0-2); RBC Urine 0-2 /HPF (0-2); WBC Urine 0-5 /HPF (0-5)
[2023-12-21 17:00] LABS: Influenza A PCR NEGATIVE (Negative); Influenza B PCR NEGATIVE (Negative); Resp Syncy Virus RNA Qual PCR NEGATIVE (Negative); SARS COV2 PCR INHOUSE NEGATIVE (Negative)
[2023-12-21 17:47] LABS: IDNOW Serial# 58CA691E; Strep A Nucleic Acid Negative (Negative)
[2023-12-21 17:48] LABS: Troponin-I High Sensitivity 3.7 ng/L (<3.5-17.0)
[2023-12-21] MEDS: Azithromycin 500 MG TABLET PO (18:53)
[2023-12-21] MEDS: Amoxicillin/Potassium Clav 875 MG TABLET PO (18:53)
== END 2023-12-21 19:18 | disposition home or self-care (01) ==
PROVIDERS: Physician Assistant; Emergency Provider Student in an Organized Health Care Education/Training Program; PCP Physician Assistant
DX: J18.9 Pneumonia, unspecified organism (principal); R53.1 Weakness; E86.0 Dehydration; M70.10 Bursitis, unspecified hand; R42 Dizziness and giddiness; R05.9 Cough, unspecified; R94.31 Abnormal electrocardiogram [ECG] [EKG]; Z03.818 Encounter for observation for suspected exposure to other biological agents ruled out; Z79.899 Other long term (current) drug therapy
CPT/HCPCS: 0241U; 36415; 71046; 80053; 81001; 83690; 84484; 85025; 87651; 93005; 99284; 99285

== ENCOUNTER → 2023-12-21 15:49 | Outpatient (BNV) | payer OTHER, SELFPAY | PROVIDERS: Emergency Provider Student in an Organized Health Care Education/Training Program; PCP Physician Assistant; Visit Provider Internal Medicine Cardiovascular Disease | DX: R94.31 Abnormal electrocardiogram [ECG] [EKG] (principal) | CPT/HCPCS: 93010 ==

== ENCOUNTER 2023-12-29 14:44 | Outpatient (REF) | payer OTHER, SELFPAY ==
--- NOTE | ~2023-12-29 | XR_ITS ---
EXAMINATION: XR CHEST CLINICAL INFORMATION: Follow-up pneumonia COMPARISON: Chest x-ray from 12/21/[address] chest from 02/09/2023 TECHNIQUE: 2 views of the chest were obtained. FINDINGS: Persistent blunting of the left costophrenic angle without evidence of significant pleural effusion on the lateral view. Retrocardiac density again seen on the lateral view however there is noticeable gastric stomach bubble seen with some underlying elevation of the hemidiaphragm. No focal air space consolidation is noted. Stable chronic changes in the bilateral upper lobes XR/XR chest 2V IMPRESSION: 1. No acute cardiopulmonary process. 2. Persistent blunting of the left costophrenic angle without significant pleural effusion on the lateral view.
== END 2023-12-29 14:45 | disposition home or self-care (01) ==
LOC: HO.XRAY 14:44
PROVIDERS: Absent Provider Registered Nurse; PCP Registered Nurse; Visit Provider Internal Medicine
DX: J18.9 Pneumonia, unspecified organism (principal); R05.9 Cough, unspecified
CPT/HCPCS: 71046

== ENCOUNTER → 2024-01-13 12:30 | Outpatient (BNV) | payer OTHER, SELFPAY | PROVIDERS: PCP Registered Nurse; Visit Provider Radiology Diagnostic Radiology | DX: Z12.31 Encounter for screening mammogram for malignant neoplasm of breast (principal) | CPT/HCPCS: 77063; 77067 ==

== ENCOUNTER 2024-01-13 12:31 | Outpatient (REF) | payer OTHER, SELFPAY | END 2024-01-13 12:32 | disposition home or self-care (01) | LOC: HO.MAMMO 12:31 | PROVIDERS: PCP Registered Nurse; Visit Provider Registered Nurse | DX: Z12.31 Encounter for screening mammogram for malignant neoplasm of breast (principal) | CPT/HCPCS: 77063; 77067 ==

== ENCOUNTER 2024-02-10 11:04 | Inpatient (IN) | payer OTHER, SELFPAY ==
[2024-02-10] VITALS (10 sets, daily range): BP systolic 132–161; BP diastolic 62–76; PULSE 103–118; RESP 16–20; TEMP 36.1–37.7; O2SAT 89–94; BMI 29.8
--- NOTE | ~2024-02-10 | CT_ITS ---
EXAMINATION: CT angio chest PE protocol, CT abdomen pelvis w IV con CLINICAL INFORMATION: Reason for Exam SOB, CP, tachycardia, concern for PE diarrhea. Abdominal pain. COMPARISON: CT chest 02/09/2023. PET/CT 12/02/2022. CT chest 10/14/2022. CT chest 08/21/2021. TECHNIQUE: IV contrast enhanced CT angiography of the chest with multiple angiographic reformatted images processed on the technologist workstation under concurrent supervision; IV contrast enhanced CT of abdomen pelvis. Intravenous Contrast: Omnipaque [address] examination was performed using dose optimization techniques as appropriate, variously including the following: *Automated exposure control *Adjustment of mA and/or kV according to patient size (this includes techniques or standardized protocols for targeted exams where dose is matched to indication/reason for exam; i.e. extremities or head) *Use of iterative reconstruction technique DLP: 992.24 mGy-cm mGy-cm FINDINGS: Chest: Pulmonary arterial system: No intraluminal filling defects to suggest the presence of pulmonary emboli. Normal caliber of the main and central pulmonary arteries. Lungs and pleura: Centrilobular emphysematous changes are again noted. Scattered calcified and noncalcified nodules ranging in size up to 3 mm in diameter again visualized and are unchanged compared with 08/21/2021 making allowances for interval differences in imaging technique. These findings are benign in appearance on the basis of greater than 2 year interval stability and do not specifically warranted imaging follow-up on the basis of this examination (2017 Fleischner criteria). No pulmonary consolidation or suspicious pulmonary groundglass opacities identified. No endobronchial lesions noted. A trace left pleural effusion (-3 Hounsfield unit) is present at the left lung base focal coarse reticular opacities noted within the parasagittal right lung base on the comparison study of 10/14/2022 are no longer visualized. Mediastinum: The thyroid is grossly normal in appearance. Moderate aortic calcific atherosclerosis. Normal thoracic aortic caliber. Normal heart size. No pericardial thickening or pericardial fluid collections. Partial visualization of at least mild scattered coronary artery calcific atherosclerosis. Thoracic wall: No axillary lymphadenopathy. Liver: Normal. Biliary system: Normal appearance of the gallbladder. No biliary duct dilatation. Pancreas: Mild diffuse atrophy. Spleen: Normal. Adrenal glands: Normal. Kidneys: Normal. No hydronephrosis or perinephric inflammatory changes. No urolithiasis. Urinary bladder: Mild physiologic distention. Gastrointestinal system: Moderate colonic diverticulosis. Normal appearance of the appendix. Moderate contiguous concentric submucosal thickening and enhancement within the ascending colon and cecum. Normal appearance of the terminal ileum. No free intraperitoneal fluid or gas collections. Normal appearance of the sigmoid mesentery and small bowel mesentery. Incidental diverticulum of the second portion of the duodenum. Small hiatal hernia. Abdominal wall: No hernias. Abdominal and pelvic lymphovascular structures:*Diffuse calcific atherosclerosis. No lymphadenopathy. Pelvic viscera: Uterus is absent. No adnexal lesions identified. Osseous structures: No thoracolumbar vertebral body compression deformities. No suspicious skeletal lesions identified. CT/CT abdomen pelvis w IV con IMPRESSION: CT angiography chest: 1. CT pulmonary angiogram negative for pulmonary emboli. 2. Trace left pleural effusion. 3. Centrilobular emphysema. 4. Mild-moderate coronary artery calcific atherosclerosis. CT ABDOMEN AND PELVIS: 1. Moderate acute colitis involving the ascending colon and cecum. No free intraperitoneal fluid or gas collections. Normal appearance of the terminal ileum. Normal appendix. Findings are characterized by segmental, concentric mucosal thickening of the cecum and ascending colon. Findings may represent infectious colitis. 2. Moderate colonic diverticulosis. VTE: Negative.
--- NOTE | ~2024-02-10 | XR_ITS ---
EXAMINATION: XR CHEST CLINICAL INFORMATION: Chest pain. COMPARISON: 12/29/2023. TECHNIQUE: Frontal view of the chest was obtained. FINDINGS: Lung volumes are low. There is no gross pneumothorax. Cardiac silhouette appears stable. Persistent left basilar opacity/consolidation. Persistent blunting of the left costophrenic angle may represent small pleural effusion and/or pleural thickening. Increased volume loss in the left hemithorax. XR/XR chest 1V IMPRESSION: Persistent left basilar opacity/consolidation. Persistent blunting of the left costophrenic angle may represent small pleural effusion and/or pleural thickening. Increased volume loss in the left hemithorax. This study was presented today February 10, 2024 for interpretation. Stat results provided at this time as requested by referring provider.
--- NOTE | 2024-02-10 11:24 | ED_ITS ---
HPI - General Adult General Chief complaint: General Medical Stated complaint: diharea, headache, fever Time Seen by Provider: 02/10/24 11:58 Source: patient, family (patient's daughter) and refuge manager (all interactions with this patient were facilitated via an [facility] fruit culler) Mode of arrival: ambulatory Limitations: language barrier (all interactions with this patient were facilitated via an [facility] fruit culler) History of Present Illness ED Provider: Francia Owens PA-C HPI narrative: Patient is a 68 year old assigned female at with a history of anxiety, DM, HTN, diverticulosis, and COPD presenting to the emergency department today with a fever, dizziness, diarrhea, and feeling generally unwell. Patient states that over the last 2 days she has felt generally unwell with dizziness, diarrhea, body aches, and a fever. Patient denies any lightheadedness, abdominal pain, nausea, vomiting, chills, blurry vision, double vision, loss of vision, chest pain, difficulty breathing, shortness of breath, back pain, night sweats, pain with urination, increased urinary frequency, increased urinary urgency, blood in her urine or stool, syncope or a near syncopal episode, recent trauma or falls, bowel incontinence, bladder incontinence, or any other complaints at this time. Patient's daughter states that over the weekend, multiple members of their family attended a green party where they got sick. Patient's daughter states that while the patient wasn't at the green party, many of the individuals who were there have since visited the patient. Onset (ago): day(s) (2) Relieving factors: none Exacerbating factors: none Associated symptoms: fever/chills Treatments prior to arrival: none Related Data Home Medications ?Medication ?Instructions ?Recorded ?Confirmed aspirin 81 mg tablet,delayed 81 mg PO DAILY 08/29/21 05/14/23 release atorvastatin 40 mg tablet 40 mg PO BEDTIME 08/29/21 05/14/23 calcium carbonate 600 mg-vitamin 1 tab PO BEDTIME 08/29/21 05/14/23 D3 10 mcg (400 unit) tablet cilostazol 50 mg tablet 50 mg PO BID 08/29/21 05/14/23 fluoxetine 40 mg capsule 40 mg PO BEDTIME 08/29/21 01/02/23 gabapentin 300 mg capsule 300 mg PO DAILY 08/29/21 05/14/23 hydralazine 25 mg tablet 25 mg PO BID 08/29/21 01/02/23 hydroxyzine pamoate 25 mg capsule 25 mg PO TID 08/29/21 01/02/23 insulin syringe-needle U-100 1/2 #10 ea 08/29/21 01/02/23 mL 31 gauge x 15/64 (BD Veo Insulin Syringe Ultra-Fine) lisinopril 40 mg tablet 40 mg PO DAILY 08/29/21 01/02/23 metformin 1,000 mg tablet 1,000 mg PO BID 08/29/21 01/02/23 fluticasone 250 mcg-salmeterol 50 1 inh inhalation BID 05/14/23 05/14/23 mcg/dose blistr powdr for inhalation metoprolol tartrate 25 mg tablet 50 mg PO BID 05/14/23 05/14/23 umeclidinium 62.5 mcg/actuation 1 inh inhalation DAILY 05/14/23 05/14/23 blister powder for inhalation (Incruse Ellipta) insulin glargine 100 unit/mL 12 unit subcut BEDTIME 12/02/23 subcutaneous solution (Lantus U-100 Insulin) sitagliptin phosphate 100 mg 100 mg PO DAILY 12/02/23 tablet (Januvia) omeprazole 20 mg capsule,delayed 20 mg PO QAM 02/10/24 release Previous Rx's ?Medication ?Instructions ?Recorded psyllium husk 2.6 gram/4.1 gram 1 tbsp PO DAILY 60 days #480 grams 12/27/21 oral powder albuterol sulfate 90 mcg/actuation 2 puff inhalation Q4-6H PRN 06/09/22 aerosol inhaler shortness of breath or wheezing 30 days #8.5 grams methylcellulose (laxative) 500 mg 500 mg PO BID #60 tabs 10/01/22 tablet (Fiber Laxative (methylcellulose)) nicotine 14 mg/24 hr daily 1 patch transdermal DAILY 05/04/23 transdermal patch CIGARETTES CRAVING 28 days #28 ea amoxicillin 875 mg-potassium 1 tab PO Q12H #13 tabs 12/21/23 clavulanate 125 mg tablet azithromycin 250 mg tablet 250 mg PO DAILY 4 days #4 tabs 12/21/23 Allergies Allergy/AdvReac Type Severity Reaction Status Date / Time ciprofloxacin [From CIPRO] Allergy Severe ANAPHYLAXIS Verified 02/10/24 11:23 Review of Systems 2 Constitutional: Constitutional: Reports no additional constitutional complaints, Reports body ache(s), Denies chills, Reports fever(s) and Denies night sweats Eyes: Eyes: Reports no additional eye complaints, Denies blurry vision, Denies change in vision, Denies diplopia, Denies eye discharge, Denies loss of vision and Denies eye pain ENT: Reports dizziness Cardiovascular: Cardiovascular: Reports no additional cardiovascular complaints, Denies chest pain, Denies lightheadedness, Denies Loss of Consciousness and Denies dyspnea Respiratory: Respiratory: Reports no additional respiratory complaints and Denies dyspnea Gastrointestinal: Gastrointestinal: Reports no additional gastrointestinal complaints, Denies abdominal pain, Denies melena, Denies hematochezia, Denies change in bowel habits, Denies change in stool character and Reports diarrhea Genitourinary: Genitourinary: Denies hematuria, Denies urinary frequency, Denies dysuria, Denies urinary incontinence, Denies urinary hesitancy and Denies urinary urgency Musculoskeletal: Musculoskeletal: Reports no additional musculoskeletal complaints, Denies numbness and Denies tingling Neurologic: Reports dizziness, Denies loss of vision, Denies numbness and Denies tingling Psychiatric: Psychiatric: Reports no additional psychiatric complaints Endocrine: Endocrine: Reports no additional endocrine complaints Hematologic/Lymphatic: Hematologic/Lymphatic: Reports no additional hematologic/lymphatic complaints Allergic/Immunologic: Allergic/Immunologic: Reports no additional allergic/immunologic complaints PMF Past Medical History Attestation statement: The following information was validated with the patient. (all information validated with the patient's daughter) Source: old records reviewed, obtained from family (patient's daughter provided additional history and confirmed the history provided by the patient.) and nursing notes reviewed Medical History Hypoxemia History of uterine cancer Type 2 diabetes mellitus, with long-term current use of insulin COPD (chronic obstructive pulmonary disease) Smoker PVD (peripheral vascular disease) Osteoporosis Family history of colon cancer Anxiety Dyslipidemia HTN (hypertension) Surgical History History of lung surgery History of bunionectomy of left great toe History of colonoscopy History of pubovaginal sling History of hysterectomy Family History Family History Brother Colon cancer Social History Social History Household Members: None Alcohol intake: never Patient Tobacco Use Status: Former Tobacco user Tobacco use type: Cigarette Cigarettes Per Day: 15 Smoked in Last 30 Days: No Use of substances other than those prescribed or required for medical reasons: No Advance Directives: No Advance Directives Information Provided: Yes Do you have a plan to hurt others: No Plan Physical Exam ED Vital Signs: Vital Signs - 24 hr 02/10/24 11:17 02/10/24 12:01 02/10/24 12:12 Temperature 99 F 99.9 F Pulse Rate 118 H 112 H 109 H Respiratory Rate 20 16 20 Blood Pressure 153/76 H 141/68 H Pulse Oximetry 89 L 93 Oxygen Delivery Method Room Air 02/10/24 13:37 Temperature 98.6 F Pulse Rate 110 H Respiratory Rate 19 Blood Pressure 140/67 H Pulse Oximetry 93 Oxygen Delivery Method Room Air BMI result Body Mass Index 29.8 Const General: cooperative, no acute distress, alert and awake Nutritional Appearance: well nourished Orientation/consciousness: patient oriented x3 Limitations: no limitations HENMT Head: Yes normal to inspection and Yes atraumatic Ears: hearing grossly normal bilaterally and external ears normal General nose exam: Normal external nose present, no nasal discharge noted and no epistaxis Face and sinus: Yes normal facial exam, No abrasion and No laceration Mouth: Normal oral and palatal mucosa present, no drooling and no muffled voice Eyes General: appearance normal, both eyes and all related structures Periorbital: periorbital findings normal Eyelids: Yes eyelids normal Conjunctivae: conjunctivae normal Pupils: Equal, round and reactive pupils present EOM: EOMs intact bilaterally Neck Neck: Yes normal visual inspection, Yes full ROM and Yes no lymphadenopathy Chest Chest palpation & inspection: normal inspection of the chest Resp Effort & Inspection: normal respiratory effort and able to speak in complete sentences GI Inspection: Yes normal to inspection Palpation (GI): Soft to palpation, not firm, nontender, no guarding and not rigid Neuro General: patient oriented x3 and moves all extremities Cranial nerves: Yes Equal, round and reactive pupils present Cognition (Neuro): normal cognition Extrem General: Yes normal to inspection, Yes full ROM and Yes capillary refill normal Psych Appearance: grossly normal Mental Status: mental status grossly normal Affect: normal affect Attitude: cooperative Thought process: Normal thought process present Thought content: Normal thought content present Insight: Good insight present (Psych) Course Course Course Narrative: This is a Rapid Medical Exam performed in triage by Aliya Salinas PA-C. Full HPI, ROS and PE to be performed by primary ED provider. 68 year-old F w/ PMHx HTN, diabetes, asthma/COPD presenting to the ED c/o fever, headache, diarrhea, lightheadedness/dizziness, myalgias, dry cough and chest pain x3 days. Denies SOB. PE: Initially 89% on RA, increased to 91% with rest. Diminished lung sounds throughout. Low suspicion for severe sepsis likely viral etiology. Plan: EKG, labs, CXR, viral testing Medications Administered Discontinued Medications Generic Name Dose Route Start Last Admin Trade Name Freq PRN Reason Stop Dose Admin Acetaminophen 650 mg 02/10/24 12:00 02/10/24 12:40 Acetaminophen 325 Mg Tablet PO 02/10/24 12:01 650 mg ONCE ONE Administration Albuterol/Ipratropium 3 ml 02/10/24 12:01 02/10/24 12:03 Albuterol/Iprat 2.5/0.5mg 3 Ml Ampul.Neb INHALE 02/10/24 12:02 3 ml ONCE ONE Administration Sodium Chloride 1,000 mls @ 999 mls/hr 02/10/24 12:00 02/10/24 13:13 Ns IV 02/10/24 13:00 Infused .Q1H1M NANCY Infusion Ceftriaxone Sodium 1 gm/ 50 mls @ 100 mls/hr 02/10/24 12:24 02/10/24 13:13 Sodium Chloride IV 02/10/24 12:53 Infused ONCE ONE Infusion Lactated Ringer's 2,435.79 mls @ 2,435.79 mls/hr 02/10/24 12:29 02/10/24 13:15 Lr 30 ml/kg infuse over 1 hr (2435.79 ml) 02/10/24 13:28 2,435.79 mls/hr IV Administration .Q1H ONE Magnesium Sulfate/Dextrose 1 gm in 100 mls @ 100 mls/hr 02/10/24 12:34 02/10/24 13:15 Magnesium Sulfate/D5w IV 02/10/24 13:33 100 mls/hr ONCE ONE Administration Iohexol 100 ml 02/10/24 13:20 02/10/24 13:21 Iohexol 350 Mg/Ml 100 Ml Infus..Btl IV 02/10/24 13:21 85 ml ONCE ONE Administration Medical Decision Making Medical Decision Making MDM Narrative: Patient is a 68 year old assigned female at with a history of anxiety, DM, HTN, diverticulosis, and COPD presenting to the emergency department today with a fever, diarrhea, and feeling generally unwell. Patient's physical exam was as noted in the physical exam portion of this note. Patient was initially hypoxic, tachycardic, and febrile. Patient's blood work showed significant bandemia and hypomagnesemia. Patient's urine showed no acute process. Patient's EKG was unremarkable. Patient's chest x-ray showed no acute process. Patient's CTA chest showed a mild pleural effusion. Patient's CT abd/pelvis showed evidence of colitis. I became suspicious of sepsis within this patient at 1225. I spoke to the hospitalist team who agreed to admission. Patient was given IV ceftriaxone and 30mg/kg LR. I explained my physical exam findings as well as all test results to the patient and the patient's daughter. I answered all questions asked by the patient and the patient's daughter. Patient and the patient's daughter verbalized agreement and understanding with this treatment plan and admission. Differential Diagnosis Differential Diagnoses: The differential diagnosis associated with the presentation includes Bandemia Colitis Infectious colitis C.Diff COVID-19 PNA Admission/Observation Consideration of admission/observation: Escalation of care including admission/observation considered Patient admitted. Consult Healthcare Provider Management of the patient was discussed with: Hospitalist (spoke to the hospitalist as noted in the MDM Rationale portion of this note) Lab Data [facility] Lab Attestation statement: I reviewed the patient's lab results. My interpretation of these results are in the MDM Rationale portion of this note. 02/10/24 11:34 02/10/24 11:34 Labs: Lab Results 02/10/24 02/10/24 02/10/24 Range/Units 11:34 12:44 12:50 WBC 9.0 (4.8-10.8) X10*3/uL RBC 4.40 D (4.20-5.50) X10*6/uL Hgb 11.9 L D (12.0-16.0) g/dl Hct 36.0 L (37.0-47.0) % MCV 81.8 (80.0-98.0) fL MCH 27.0 (27.0-33.0) pg MCHC 33.1 (31.0-35.0) g/dl RDW 14.9 (11.0-16.0) % Plt Count 231 (160-400) X10*3/uL MPV 10.6 (9.4-12.3) fL Immature Gran % (Auto) Cancelled Neut % (Auto) Cancelled Lymph % (Auto) Cancelled [place] % (Auto) Cancelled Eos % (Auto) Cancelled Baso % (Auto) Cancelled Lymph # (Auto) Cancelled [place] # (Auto) Cancelled Eos # (Auto) Cancelled Baso # (Auto) Cancelled Abs Immat Gran (auto) Cancelled Absolute Neuts (auto) Cancelled Absolute Nucleated RBC 0.000 (0.0-0.012) X10*3/uL Nucleated RBC % (auto) 0.0 (0.0-0.2) /100WBC Neutrophils % (Manual) 55 (45-73) % Band Neutrophils % 31 H (3-5) % Lymphocytes % (Manual) 10 L (20-40) % Monocytes % (Manual) 3 (2-11) % Metamyelocytes % 1 % Abs Neuts (Manual) 7.7 (2.0-8.3) X10*3/uL Lymphocytes # (Manual) 0.9 L (1.2-4.9) X10*3/uL Monocytes # (Manual) 0.3 (0.1-1.2) X10*3/uL Metamyelocytes # 0.1 X10*3/uL Toxic Vacuolation PRESENT Dohle Bodies PRESENT Platelet Estimate NORMAL (NORMAL) Plt Morphology Comment NORM RBC Morphology NORMAL PT 12.6 (11.1-13.3) SEC INR 1.0 (0.9-1.1) Sodium 132 L (135-145) mmol/L Potassium 4.5 (3.3-5.1) mmol/L Chloride 100 (96-108) mmol/L Carbon Dioxide 22 (22-29) mmol/L Anion Gap 15 (12-20) BUN 27 H (9-16) mg/dL Creatinine 1.15 (0.5-1.4) mg/dL Estim Creat Clear Calc 48.5 Estimated GFR 47 Random Glucose 295 H (60-115) mg/dL Lactic Acid 1.2 (0.5-2.0) mmol/L Calcium 9.1 D (8.4-10.2) mg/dL Magnesium 1.3 L* (1.6-2.6) mg/dL Total Bilirubin 0.2 (0.0-1.0) mg/dL Direct Bilirubin < 0.2 (0.0-0.5) mg/dL AST 25 (5-31) U/L ALT 16 (0-31) U/L Alkaline Phosphatase 70 (39-117) U/L Troponin I High Sens 5.7 D (<3.5-17.0) ng/L B-Natriuretic Peptide 82 (<100) pg/mL Total Protein 7.4 (6.5-8.0) g/dL Albumin 3.8 (3.5-5.0) g/dL Urine Color Urine Appearance Urine pH (5.0-9.0) Ur Specific [place] (1.005-1.025) Urine Protein (Neg-Trace) mg/dL Urine Glucose (UA) (Negative) mg/dL Urine Ketones (Negative) mg/dL Urine Blood (Negative) Urine Nitrite (Negative) Ur Leukocyte Esterase (Negative) Respiratory Panel [place] See Note Adenovirus (Rapid PCR) Not Detected (Not Detect.) B.pert (TEM-PCR) Not Detected (Not Detect.) B.parapertussis DNA PCR Not Detected (Not Detect.) C. pneumoniae DNA (PCR) Not Detected (Not Detect.) Coronavirus OC43 (PCR) Not Detected (Not Detect.) Coronavirus HKU1 (PCR) Not Detected (Not Detect.) Coronavirus 229E (PCR) Not Detected (Not Detect.) Coronavirus NL63 (PCR) Not Detected (Not Detect.) Human Metapneumovir PCR Not Detected (Not Detect.) Influenza A (RT-PCR) Not Detected (Not Detect.) Influenza Type A (PCR) NEGATIVE (Negative) Influenza B (RT-PCR) Not Detected (Not Detect.) Influenza Type B (PCR) NEGATIVE (Negative) M. pneumoniae (PCR) Not Detected (Not Detect.) Parainfluenza 1 (PCR) Not Detected (Not Detect.) Parainfluenza 2 (PCR) Not Detected (Not Detect.) Parainfluenza 3 (PCR) Not Detected (Not Detect.) Parainfluenza 4 (PCR) Not Detected (Not Detect.) RSV (PCR) Not Detected (Not Detect.) RSV RNA Qual (PCR) NEGATIVE (Negative) Entero/Rhino (PCR) Not Detected (Not Detect.) SARS-CoV-2 RNA (RT-PCR) NEGATIVE Not Detected (Negative) 02/10/24 Range/Units 13:40 WBC (4.8-10.8) X10*3/uL RBC (4.20-5.50) X10*6/uL Hgb (12.0-16.0) g/dl Hct (37.0-47.0) % MCV (80.0-98.0) fL MCH (27.0-33.0) pg MCHC (31.0-35.0) g/dl RDW (11.0-16.0) % Plt Count (160-400) X10*3/uL MPV (9.4-12.3) fL Immature Gran % (Auto) Neut % (Auto) Lymph % (Auto) [place] % (Auto) Eos % (Auto) Baso % (Auto) Lymph # (Auto) [place] # (Auto) Eos # (Auto) Baso # (Auto) Abs Immat Gran (auto) Absolute Neuts (auto) Absolute Nucleated RBC (0.0-0.012) X10*3/uL Nucleated RBC % (auto) (0.0-0.2) /100WBC Neutrophils % (Manual) (45-73) % Band Neutrophils % (3-5) % Lymphocytes % (Manual) (20-40) % Monocytes % (Manual) (2-11) % Metamyelocytes % % Abs Neuts (Manual) (2.0-8.3) X10*3/uL Lymphocytes # (Manual) (1.2-4.9) X10*3/uL Monocytes # (Manual) (0.1-1.2) X10*3/uL Metamyelocytes # X10*3/uL Toxic Vacuolation Dohle Bodies Platelet Estimate (NORMAL) Plt Morphology Comment RBC Morphology PT (11.1-13.3) SEC INR (0.9-1.1) Sodium (135-145) mmol/L Potassium (3.3-5.1) mmol/L Chloride (96-108) mmol/L Carbon Dioxide (22-29) mmol/L Anion Gap (12-20) BUN (9-16) mg/dL Creatinine (0.5-1.4) mg/dL Estim Creat Clear Calc Estimated GFR Random Glucose (60-115) mg/dL Lactic Acid (0.5-2.0) mmol/L Calcium (8.4-10.2) mg/dL Magnesium (1.6-2.6) mg/dL Total Bilirubin (0.0-1.0) mg/dL Direct Bilirubin (0.0-0.5) mg/dL AST (5-31) U/L ALT (0-31) U/L Alkaline Phosphatase (39-117) U/L Troponin I High Sens (<3.5-17.0) ng/L B-Natriuretic Peptide (<100) pg/mL Total Protein (6.5-8.0) g/dL Albumin (3.5-5.0) g/dL Urine Color Yellow Urine Appearance Clear Urine pH 5.0 (5.0-9.0) Ur Specific [place] 1.020 (1.005-1.025) Urine Protein Trace (Neg-Trace) mg/dL Urine Glucose (UA) 250 H (Negative) mg/dL Urine Ketones Trace (Negative) mg/dL Urine Blood Negative (Negative) Urine Nitrite Negative (Negative) Ur Leukocyte Esterase Negative (Negative) Respiratory Panel [place] Adenovirus (Rapid PCR) (Not Detect.) B.pert (TEM-PCR) (Not Detect.) B.parapertussis DNA PCR (Not Detect.) C. pneumoniae DNA (PCR) (Not Detect.) Coronavirus OC43 (PCR) (Not Detect.) Coronavirus HKU1 (PCR) (Not Detect.) Coronavirus 229E (PCR) (Not Detect.) Coronavirus NL63 (PCR) (Not Detect.) Human Metapneumovir PCR (Not Detect.) Influenza A (RT-PCR) (Not Detect.) Influenza Type A (PCR) (Negative) Influenza B (RT-PCR) (Not Detect.) Influenza Type B (PCR) (Negative) M. pneumoniae (PCR) (Not Detect.) Parainfluenza 1 (PCR) (Not Detect.) Parainfluenza 2 (PCR) (Not Detect.) Parainfluenza 3 (PCR) (Not Detect.) Parainfluenza 4 (PCR) (Not Detect.) RSV (PCR) (Not Detect.) RSV RNA Qual (PCR) (Negative) Entero/Rhino (PCR) (Not Detect.) SARS-CoV-2 RNA (RT-PCR) (Negative) Independent Interpretation I performed an independent interpretation of an: EKG, Plain X-Ray and CT Scan Interpretation: My interpretation is in agreement with the radiologist's impression of these imaging studies. - EXAMINATION: XR CHEST CLINICAL INFORMATION: Chest pain. COMPARISON: 12/29/2023. TECHNIQUE: Frontal view of the chest was obtained. FINDINGS: Lung volumes are low. There is no gross pneumothorax. Cardiac silhouette appears stable. Persistent left basilar opacity/consolidation. Persistent blunting of the left costophrenic angle may represent small pleural effusion and/or pleural thickening. Increased volume loss in the left hemithorax. XR/XR chest 1V IMPRESSION: Persistent left basilar opacity/consolidation. Persistent blunting of the left costophrenic angle may represent small pleural effusion and/or pleural thickening. Increased volume loss in the left hemithorax. This study was presented today February 10, 2024 for interpretation. Stat results provided at this time as requested by referring provider. Dictated By: Alyssa Ennis MD Signed By: Electronically signed by Alyssa Ennis MD 02/10/24 1323 - EXAMINATION: CT angio chest PE protocol, CT abdomen pelvis w IV con CLINICAL INFORMATION: Reason for Exam SOB, CP, tachycardia, concern for PE diarrhea. Abdominal pain. COMPARISON: CT chest 02/09/2023. PET/CT 12/02/2022. CT chest 10/14/2022. CT chest 08/21/2021. TECHNIQUE: IV contrast enhanced CT angiography of the chest with multiple angiographic reformatted images processed on the technologist workstation under concurrent supervision; IV contrast enhanced CT of abdomen pelvis. Intravenous Contrast: Omnipaque [address] examination was performed using dose optimization techniques as appropriate, variously including the following: *Automated exposure control *Adjustment of mA and/or kV according to patient size (this includes techniques or standardized protocols for targeted exams where dose is matched to indication/reason for exam; i.e. extremities or head) *Use of iterative reconstruction technique DLP: 992.24 mGy-cm mGy-cm FINDINGS: Chest: Pulmonary arterial system: No intraluminal filling defects to suggest the presence of pulmonary emboli. Normal caliber of the main and central pulmonary arteries. Lungs and pleura: Centrilobular emphysematous changes are again noted. Scattered calcified and noncalcified nodules ranging in size up to 3 mm in diameter again visualized and are unchanged compared with 08/21/2021 making allowances for interval differences in imaging technique. These findings are benign in appearance on the basis of greater than 2 year interval stability and do not specifically warranted imaging follow-up on the basis of this examination (2017 Fleischner criteria). No pulmonary consolidation or suspicious pulmonary groundglass opacities identified. No endobronchial lesions noted. A trace left pleural effusion (-3 Hounsfield unit) is present at the left lung base focal coarse reticular opacities noted within the parasagittal right lung base on the comparison study of 10/14/2022 are no longer visualized. Mediastinum: The thyroid is grossly normal in appearance. Moderate aortic calcific atherosclerosis. Normal thoracic aortic caliber. Normal heart size. No pericardial thickening or pericardial fluid collections. Partial visualization of at least mild scattered coronary artery calcific atherosclerosis. Thoracic wall: No axillary lymphadenopathy. Liver: Normal. Biliary system: Normal appearance of the gallbladder. No biliary duct dilatation. Pancreas: Mild diffuse atrophy. Spleen: Normal. Adrenal glands: Normal. Kidneys: Normal. No hydronephrosis or perinephric inflammatory changes. No urolithiasis. Urinary bladder: Mild physiologic distention. Gastrointestinal system: Moderate colonic diverticulosis. Normal appearance of the appendix. Moderate contiguous concentric submucosal thickening and enhancement within the ascending colon and cecum. Normal appearance of the terminal ileum. No free intraperitoneal fluid or gas collections. Normal appearance of the sigmoid mesentery and small bowel mesentery. Incidental diverticulum of the second portion of the duodenum. Small hiatal hernia. Abdominal wall: No hernias. Abdominal and pelvic lymphovascular structures:*Diffuse calcific atherosclerosis. No lymphadenopathy. Pelvic viscera: Uterus is absent. No adnexal lesions identified. Osseous structures: No thoracolumbar vertebral body compression deformities. No suspicious skeletal lesions identified. CT/CT abdomen pelvis w IV con IMPRESSION: CT angiography chest: 1. CT pulmonary angiogram negative for pulmonary emboli. 2. Trace left pleural effusion. 3. Centrilobular emphysema. 4. Mild-moderate coronary artery calcific atherosclerosis. CT ABDOMEN AND PELVIS: 1. Moderate acute colitis involving the ascending colon and cecum. No free intraperitoneal fluid or gas collections. Normal appearance of the terminal ileum. Normal appendix. Findings are characterized by segmental, concentric mucosal thickening of the cecum and ascending colon. Findings may represent infectious colitis. 2. Moderate colonic diverticulosis. VTE: Negative. Dictated By: Jasmeet Roberts MD Signed By: Electronically signed by Jasmeet Roberts MD 02/10/24 1424 - Vent. Rate: 115 BPM Atrial Rate: 115 BPM P-R Inc: 130 ms QRS Dur: 098 ms QT Int: 330 ms P-R-T Axes: 057 -17 079 degrees QTc Int: 456 ms Sinus tachycardia Left ventricular hypertrophy with repolarization abnormality ([place] product) Abnormal ECG When compared with ECG of 21-DEC-2023 15:52, Premature supraventricular complexes are no longer Present T wave inversion less evident in Anterior leads T wave inversion more evident in Lateral leads DD/ 1123 Radiology Impression Discussion of test interpretation with radiology: I have reviewed the radiologist's reading. Independent Historian Clinical information obtained from an independent historian. History obtained from or confirmed by: Other (patient's daughter provided additional history and confirmed the history provided by the patient.) Critical Care Time Critical Care Time Critical Care Time: Yes Total Critical Care Time: 47 Attestation: I spent 47 minutes of Critical Care Time with this patient. This does not include time spent on separately reported billable procedures. Discharge Plan Discharge Clinical Impression: Sepsis, Colitis, Hypoxia, Bandemia Patient Disposition: Admitted As Inpatient
--- NOTE | 2024-02-10 11:24 | ECG_ITS ---
Test Reason : CHEST PAIN Blood Pressure : / mmHG Vent. Rate : 115 BPM Atrial Rate : 115 BPM P-R Int : 130 ms QRS Dur : 098 ms QT Int : 330 ms P-R-T Axes : 057 -17 079 degrees QTc Int : 456 ms Sinus tachycardia Left ventricular hypertrophy with repolarization abnormality ( Andi product ) Abnormal ECG When compared with ECG of 21-DEC-2023 15:52, Premature supraventricular complexes are no longer Present T wave inversion less evident in Anterior leads T wave inversion more evident in Lateral leads Referred By: Aliya Salinas Electronically Signed By:OSEI RODRIGUEZ MD
[2024-02-10 11:52] LABS: Hemoglobin 11.9 g/dl (12.0-16.0); Mean Corpuscular HGB Conc 33.1 g/dl (31.0-35.0); Mean Corpuscular Volume 81.8 fL (80.0-98.0); Mean Platelet Volume 10.6 fL (9.4-12.3); Platelet Count 231 X10*3/uL (160-400); Red Cell Distribution Width 14.9 % (11.0-16.0)
[2024-02-10 11:53] LABS: WBC ABN SCTR FOR CBC 1
[2024-02-10 11:55] LABS: Prothrombin Time 12.6 SEC (11.1-13.3)
[2024-02-10] MEDS: Albuterol/Iprat 2.5/0.5MG 3 ML AMPUL.NEB INHALE (12:03)
[2024-02-10] MEDS: 0.9 % Sodium Chloride 1,000 ML 999 ML IV (12:11)
[2024-02-10 12:13] LABS: B Type Natriuretic Peptide 82 pg/mL (<100)
[2024-02-10 12:15] LABS: Troponin-I High Sensitivity 5.7 ng/L (<3.5-17.0)
[2024-02-10 12:19] LABS: Neutrophils Percent Manual 55 % (45-73)
[2024-02-10 12:24] LABS: Band Neutrophils Percent 31 % (3-5); Lymphocytes Percent Manual 10 % (20-40); Metamyelocytes Percent 1 %; Monocytes Percent Manual 3 % (2-11); RBC Morphology NORMAL; Toxic Vacuolation PRESENT
[2024-02-10 12:26] LABS: Dohle Bodies PRESENT; Platelet Estimate NORMAL (NORMAL)
[2024-02-10 12:27] LABS: Influenza A PCR NEGATIVE (Negative); Influenza B PCR NEGATIVE (Negative); Platelet Morphology Comment NORM; Resp Syncy Virus RNA Qual PCR NEGATIVE (Negative); SARS COV2 PCR INHOUSE NEGATIVE (Negative)
[2024-02-10 12:34] LABS: Alanine Aminotransferase 16 U/L (0-31); Albumin Level 3.8 g/dL (3.5-5.0); Alkaline Phosphatase 70 U/L (39-117); Anion Gap 15 (12-20); Aspartate Amino Transferase 25 U/L (5-31); Bilirubin Direct < 0.2 mg/dL (0.0-0.5); Bilirubin Total 0.2 mg/dL (0.0-1.0); Blood Urea Nitrogen 27 mg/dL (9-16); Calcium 9.1 mg/dL (8.4-10.2); Creatinine Clr Calc Pharmacy 48.5; Estimated Glomerular Filt Rate 47; Glucose Random 295 mg/dL (60-115); Lymphocytes Absolute Manual 0.9 X10*3/uL (1.2-4.9); Metamyelocytes Absolute 0.1 X10*3/uL; Monocytes Absolute Manual 0.3 X10*3/uL (0.1-1.2); Neutrophils Absolute Manual 7.7 X10*3/uL (2.0-8.3); Total Protein 7.4 g/dL (6.5-8.0)
[2024-02-10 12:35] LABS: Carbon Dioxide 22 mmol/L (22-29); Chloride 100 mmol/L (96-108); Magnesium 1.3 mg/dL (1.6-2.6); Potassium 4.5 mmol/L (3.3-5.1); Sodium 132 mmol/L (135-145)
[2024-02-10] MEDS: Acetaminophen 325 MG TABLET 650 MG PO (12:40)
[2024-02-10] MEDS: cefTRIAXone sodium 1 GM in 0.9 % Sodium Chloride 50 ML IV (12:42)
--- NOTE | 2024-02-10 12:57 | MHC.EDTECH ---
This tech went to introduce herself, vital signs taken and blood collected, call fernandez within reach.
--- NOTE | 2024-02-10 12:59 | PC.NURSE ---
pt a&ox4, tachycardic, O2 93% on RA, other vss WNL. Pt at bedside obtaining labs, both sets of blood cultures collected per provider for sepsis protocol w IV abx started after collection - delay in scanning labs. 1L NS running. pt pending CT scan. no new orders at this time.
[2024-02-10 13:01] LABS: Lactic Acid 1.2 mmol/L (0.5-2.0)
[2024-02-10] MEDS: Magnesium Sulfate/D5W 1 GM/100 ML PIGGYBACK IV (13:15)
[2024-02-10] MEDS: iohexoL 350 MG/ML 100 ML INFUS..BTL IV (13:21)
[2024-02-10 13:54] LABS: Appearance Urine Clear; Color Urine Yellow; Glucose Urine UA 250 mg/dL (Negative); Leukocyte Esterase Urine Negative (Negative); Nitrite Urine Negative (Negative); Urine Blood Negative (Negative); Urine Ketones Trace mg/dL (Negative); Urine Protein Trace mg/dL (Neg-Trace)
[2024-02-10 14:23] LABS: Adenovirus PCR Not Detected (Not Detect.); Bordetella parapertussis PCR Not Detected (Not Detect.); Bordetella pertussis PCR Not Detected (Not Detect.); Chlamydia pneumoniae PCR Not Detected (Not Detect.); Coronavirus 229E PCR Not Detected (Not Detect.); Coronavirus HKU1 PCR Not Detected (Not Detect.); Coronavirus NL63 PCR Not Detected (Not Detect.); Coronavirus OC43 PCR Not Detected (Not Detect.); Human metapneumovirus PCR Not Detected (Not Detect.); Influenza A PCR Not Detected (Not Detect.); Influenza B PCR Not Detected (Not Detect.); Mycoplasma pneumoniae PCR Not Detected (Not Detect.); Parainfluenza 1 PCR Not Detected (Not Detect.); Parainfluenza 2 PCR Not Detected (Not Detect.); Parainfluenza 3 PCR Not Detected (Not Detect.); Parainfluenza 4 PCR Not Detected (Not Detect.); RSV PCR Not Detected (Not Detect.); Rhino/Enterovirus PCR Not Detected (Not Detect.)
--- NOTE | 2024-02-10 14:31 | PM.IMHP ---
History of Present Illness Date of Service: 02/10/24 Chief Complaint: Diarrhea This is a 68-year-old female with pertinent history of insulin-dependent diabetes mellitus, mood disorder, hypertension, COPD not on home oxygen, mixed hyperlipidemia who presents to the emergency department for evaluation of fever and diarrhea. History was obtained with the help of patient's daughter. Patient has been having symptoms since the last 2 days. She has been having multiple episodes of loose stools, nonbloody. Also has been having fevers and chills. Patient's daughter also has been having loose stools. One more sick contact in the family with loose stools. No nausea, vomiting, chest discomfort, palpitations, shortness of breath, abdominal pain, changes in urinary or bowel habits. Does endorse malaise and fatigability. In the emergency department, imaging with colitis. 31% bandemia present. Patient was given IV fluids and given empiric IV ceftriaxone. Review of Systems Constitutional: Constitutional: Reports chills, Reports fatigue, Reports fever(s), Reports lethargy, Reports malaise and Reports weakness Cardiovascular: Cardiovascular: Reports no additional cardiovascular complaints Respiratory: Respiratory: Reports no additional respiratory complaints Gastrointestinal: Gastrointestinal: Reports diarrhea Neurologic: Reports weakness Endocrine: Endocrine: Reports fatigue [facility] Medical History Hypoxemia History of uterine cancer Type 2 diabetes mellitus, with long-term current use of insulin COPD (chronic obstructive pulmonary disease) Smoker PVD (peripheral vascular disease) Osteoporosis Family history of colon cancer Anxiety Dyslipidemia HTN (hypertension) Family History Brother Colon cancer Surgical History History of lung surgery History of bunionectomy of left great toe History of colonoscopy History of pubovaginal sling History of hysterectomy Social History Household Members: None Alcohol intake: never Patient Tobacco Use Status: Former Tobacco user Tobacco use type: Cigarette Cigarettes Per Day: 15 Smoked in Last 30 Days: No Use of substances other than those prescribed or required for medical reasons: No Advance Directives: No Advance Directives Information Provided: Yes Do you have a plan to hurt others: No Plan Meds Allergies Allergy/AdvReac Type Severity Reaction Status Date / Time ciprofloxacin [From CIPRO] Allergy Severe ANAPHYLAXIS Verified 02/10/24 11:23 Home Medications ?Medication ?Instructions ?Recorded ?Confirmed ?Last Taken ?Type aspirin 81 mg tablet,delayed 81 mg PO DAILY 08/29/21 05/14/23 Unknown History release atorvastatin 40 mg tablet 40 mg PO BEDTIME 08/29/21 05/14/23 Unknown History calcium carbonate 600 mg-vitamin 1 tab PO BEDTIME 08/29/21 05/14/23 Unknown History D3 10 mcg (400 unit) tablet cilostazol 50 mg tablet 50 mg PO BID 08/29/21 05/14/23 Unknown History fluoxetine 40 mg capsule 40 mg PO BEDTIME 08/29/21 01/02/23 Unknown History gabapentin 300 mg capsule 300 mg PO DAILY 08/29/21 05/14/23 Unknown History hydralazine 25 mg tablet 25 mg PO BID 08/29/21 01/02/23 Unknown History hydroxyzine pamoate 25 mg capsule 25 mg PO TID 08/29/21 01/02/23 Unknown History insulin syringe-needle U-100 1/2 #10 ea 08/29/21 01/02/23 Unknown History mL 31 gauge x 15/64 (BD Veo Insulin Syringe Ultra-Fine) lisinopril 40 mg tablet 40 mg PO DAILY 08/29/21 01/02/23 Unknown History metformin 1,000 mg tablet 1,000 mg PO BID 08/29/21 01/02/23 Unknown History fluticasone 250 mcg-salmeterol 50 1 inh inhalation BID 05/14/23 05/14/23 Unknown History mcg/dose blistr powdr for inhalation metoprolol tartrate 25 mg tablet 50 mg PO BID 05/14/23 05/14/23 Unknown History umeclidinium 62.5 mcg/actuation 1 inh inhalation DAILY 05/14/23 05/14/23 Unknown History blister powder for inhalation (Incruse Ellipta) insulin glargine 100 unit/mL 12 unit subcut BEDTIME 12/02/23 Unknown History subcutaneous solution (Lantus U-100 Insulin) sitagliptin phosphate 100 mg 100 mg PO DAILY 12/02/23 Unknown History tablet (Januvia) omeprazole 20 mg capsule,delayed 20 mg PO QAM 02/10/24 Unknown History release Physical Exam Vital Signs and Narrative: Vital Signs: Last Vital Signs Temp 98.6 F 02/10/24 13:37 Pulse 110 H 02/10/24 13:37 Resp 19 02/10/24 13:37 BP 140/67 H 02/10/24 13:37 Pulse Ox 93 02/10/24 13:37 O2 Del Method Room Air 02/10/24 13:37 BMI result Body Mass Index 29.8 Middle-aged female lying in bed in no distress Neck supple, no JVD Regular rate and rhythm, S1-S2 heard Regular breath sounds bilaterally, no wheezing or crackles appreciated Abdomen soft nontender, no guarding, no rigidity Patient is awake, alert and oriented to self, place, time and person ; no focal motor deficit Psych: Normal mood No pedal edema Results Labs 02/10/24 11:34 02/10/24 11:34 Labs: Laboratory Results - last 24 hr 02/10/24 02/10/24 02/10/24 11:34 12:44 13:40 MCV 81.8 MCH 27.0 MCHC 33.1 RDW 14.9 Plt Count 231 MPV 10.6 Immature Gran % (Auto) Cancelled Neut % (Auto) Cancelled Lymph % (Auto) Cancelled Hodgeman % (Auto) Cancelled Eos % (Auto) Cancelled Baso % (Auto) Cancelled Lymph # (Auto) Cancelled Hodgeman # (Auto) Cancelled Eos # (Auto) Cancelled Baso # (Auto) Cancelled Abs Immat Gran (auto) Cancelled Absolute Neuts (auto) Cancelled Absolute Nucleated RBC 0.000 Nucleated RBC % (auto) 0.0 Neutrophils % (Manual) 55 Band Neutrophils % 31 H Lymphocytes % (Manual) 10 L Monocytes % (Manual) 3 Metamyelocytes % 1 Abs Neuts (Manual) 7.7 Lymphocytes # (Manual) 0.9 L Monocytes # (Manual) 0.3 Metamyelocytes # 0.1 Toxic Vacuolation PRESENT Dohle Bodies PRESENT Platelet Estimate NORMAL Plt Morphology Comment NORM RBC Morphology NORMAL PT 12.6 INR 1.0 Anion Gap 15 Estim Creat Clear Calc 48.5 Estimated GFR 47 Random Glucose 295 H Lactic Acid 1.2 Calcium 9.1 D Magnesium 1.3 L* Total Bilirubin 0.2 Direct Bilirubin < 0.2 AST 25 ALT 16 Alkaline Phosphatase 70 Troponin I High Sens 5.7 D B-Natriuretic Peptide 82 Total Protein 7.4 Albumin 3.8 Urine Color Yellow Urine Appearance Clear Urine pH 5.0 Ur Specific Theriot 1.020 Urine Protein Trace Urine Glucose (UA) 250 H Urine Ketones Trace Urine Blood Negative Urine Nitrite Negative Ur Leukocyte Esterase Negative Influenza Type A (PCR) NEGATIVE Influenza Type B (PCR) NEGATIVE RSV RNA Qual (PCR) NEGATIVE SARS-CoV-2 RNA (RT-PCR) NEGATIVE Imaging Radiologist's Impressions: Impressions Chest X-Ray 02/10/24 11:58 IMPRESSION: Persistent left basilar opacity/consolidation. Persistent blunting of the left costophrenic angle may represent small pleural effusion and/or pleural thickening. Increased volume loss in the left hemithorax. This study was presented today February 10, 2024 for interpretation. Stat results provided at this time as requested by referring provider. Abdomen/Pelvis CT 02/10/24 13:39 IMPRESSION: CT angiography chest: 1. CT pulmonary angiogram negative for pulmonary emboli. 2. Trace left pleural effusion. 3. Centrilobular emphysema. 4. Mild-moderate coronary artery calcific atherosclerosis. CT ABDOMEN AND PELVIS: 1. Moderate acute colitis involving the ascending colon and cecum. No free intraperitoneal fluid or gas collections. Normal appearance of the terminal ileum. Normal appendix. Findings are characterized by segmental, concentric mucosal thickening of the cecum and ascending colon. Findings may represent infectious colitis. 2. Moderate colonic diverticulosis. VTE: Negative. Chest CTA 02/10/24 13:39 IMPRESSION: CT angiography chest: 1. CT pulmonary angiogram negative for pulmonary emboli. 2. Trace left pleural effusion. 3. Centrilobular emphysema. 4. Mild-moderate coronary artery calcific atherosclerosis. CT ABDOMEN AND PELVIS: 1. Moderate acute colitis involving the ascending colon and cecum. No free intraperitoneal fluid or gas collections. Normal appearance of the terminal ileum. Normal appendix. Findings are characterized by segmental, concentric mucosal thickening of the cecum and ascending colon. Findings may represent infectious colitis. 2. Moderate colonic diverticulosis. VTE: Negative. Assessment and Plan (1) Colitis: Status: Acute Plan This is a 68-year-old female with pertinent history of insulin-dependent diabetes mellitus, mood disorder, hypertension, COPD not on home oxygen, mixed hyperlipidemia who presents to the emergency department for evaluation of fever and diarrhea. #. Sepsis due to acute colitis: Resuscitated with IV crystalloids. Concern for bacterial infection with bandemia. Initiating ceftriaxone and metronidazole. Lactic acid and blood culture obtained. C diff and GI panel pending. Procalcitonin pending #. Insulin-dependent diabetes mellitus with hyperglycemia: Initiating basal plus insulin regimen #. Hypertension: Continue home antihypertensives #. Hypomagnesemia due to GI losses: Repleted #. COPD: No exacerbation during admission. Continue home inhaler #. Mixed hyperlipidemia: On statin Med rec pending DVT prophylaxis: Lovenox Full code Admit as inpatient and will require two night minimum hospital stay for IV antibiotics (as above), which is not possible in a lesser acute setting. Quality Stroke Does the patient have a stroke diagnosis?: No VTE Prior VTE?: No VTE Risk Level:: Medical - moderate - high VTE Device Contraindication: Treatment Not Indicated VTE Drug Contraindication: N/A - Med Ordered
[2024-02-10 14:38] LABS: SARS-CoV-2 PCR Not Detected (Not Detect.)
--- NOTE | 2024-02-10 15:21 | PHA.MEDREC ---
Pharmacy Consult ? Medication Reconciliation Pharmacy has completed the medication reconciliation. Confirmed medications with patient daughter at bedside. The daughter states she completed her Antibiotic regemins, no longer takes the Nicotine patches since her mom is no longer smoking and her mom is no longer taking Omeprazole due to underlying medical issues they are still trying to figure out. She was able to confirm her Lantus Insulin and her mom does 15 units at bedtime.
[2024-02-10] MEDS: metroNIDAZOLE/NS 500 MG/100 ML PIGGYBACK 100 MG IV ×2 (15:41→22:21)
[2024-02-10 16:27] LABS: Procalcitonin 0.18 ng/mL
[2024-02-10 16:58] LABS: Glucose, Whole Blood 260 mg/dL (60-115)
[2024-02-10] MEDS: Enoxaparin Sodium 40 MG/0.4 ML SYRINGE SUBCUT (17:28)
[2024-02-10] MEDS: Insulin Lispro 100 UNIT/ML 3 ML VIAL SUBCUT ×2 (17:28→20:27)
[2024-02-10] MEDS: Metoprolol Tartrate 50 MG TABLET PO (20:25)
[2024-02-10] MEDS: FLUoxetine HCl 20 MG CAPSULE 40 MG PO (20:25)
[2024-02-10] MEDS: Atorvastatin Calcium 40 MG TABLET PO (20:25)
[2024-02-10] MEDS: hydrALAZINE HCl 25 MG TABLET PO (20:25)
[2024-02-10] MEDS: hydrOXYzine HCL 25 MG TABLET PO (20:25)
[2024-02-10] MEDS: Calcium + Vitamin D 250 MG TABLET 500 MG PO (20:25)
[2024-02-10] MEDS: Insulin Glargine,Hum.rec.anlog 100 UNIT/ML 10 ML VIAL 8 UNIT SUBCUT (20:26)
[2024-02-10] MEDS: 0.9 % Sodium Chloride Flush 3 ML SYRINGE IVFLUSH (20:27)
[2024-02-10 20:56] LABS: Glucose, Whole Blood 236 mg/dL (60-115)
[2024-02-10] MEDS: cilostazoL 50 MG TABLET PO (22:21)
[2024-02-11] VITALS (8 sets, daily range): BP systolic 131–143; BP diastolic 60–66; PULSE 70–92; RESP 12–18; TEMP 36.3–37.2; O2SAT 93–94
[2024-02-11 02:58] LABS: CDiff Gene PCR NEGATIVE (Negative)
[2024-02-11 06:18] LABS: Hematocrit 30.8 % (37.0-47.0); Hemoglobin 9.9 g/dl (12.0-16.0); Mean Corpuscular HGB Conc 32.1 g/dl (31.0-35.0); Mean Corpuscular Hemoglobin 26.3 pg (27.0-33.0); Mean Corpuscular Volume 81.7 fL (80.0-98.0); Mean Platelet Volume 10.8 fL (9.4-12.3); Platelet Count 209 X10*3/uL (160-400); Red Blood Count 3.77 X10*6/uL (4.20-5.50); WBC ABN SCTR FOR CBC 1
[2024-02-11 06:28] LABS: White Blood Count 6.4 X10*3/uL (4.8-10.8)
[2024-02-11] MEDS: metroNIDAZOLE/NS 500 MG/100 ML PIGGYBACK 100 MG IV ×2 (06:33→15:11)
[2024-02-11 06:47] LABS: Anion Gap 13 (12-20); Blood Urea Nitrogen 15 mg/dL (9-16); Calcium 8.7 mg/dL (8.4-10.2); Carbon Dioxide 24 mmol/L (22-29); Chloride 104 mmol/L (96-108); Creatinine Clr Calc Pharmacy 60.7; Estimated Glomerular Filt Rate > 60; Glucose Random 200 mg/dL (60-115); Magnesium 1.3 mg/dL (1.6-2.6); Potassium 3.8 mmol/L (3.3-5.1); Sodium 137 mmol/L (135-145)
[2024-02-11 07:14] LABS: Band Neutrophils Percent 13 % (3-5); Lymphocytes Absolute Manual 0.6 X10*3/uL (1.2-4.9); Lymphocytes Percent Manual 10 % (20-40); Metamyelocytes Absolute 0.1 X10*3/uL; Metamyelocytes Percent 1 %; Monocytes Absolute Manual 0.4 X10*3/uL (0.1-1.2); Monocytes Percent Manual 7 % (2-11); Neutrophils Absolute Manual 5.2 X10*3/uL (2.0-8.3); Neutrophils Percent Manual 69 % (45-73)
[2024-02-11 07:18] LABS: Hypochromasia 1+ (5-14) /OIF; Ovalocytes 1+ (5-14) /OIF; Polychromasia 1+ (0-2) /OIF; RBC Morphology NOTED
[2024-02-11 07:19] LABS: Platelet Estimate NORMAL (NORMAL); Platelet Morphology Comment NORMAL
[2024-02-11 07:40] LABS: Glucose, Whole Blood 195 mg/dL (60-115)
[2024-02-11] MEDS: Tiotropium Bromide 2.5 mcg 1 PUFF/2.5 MCG MIST.INHAL 2 PUFF INHALE (07:51)
[2024-02-11] MEDS: Fluticasone/Vilanterol 100/25 BLST.W.DEV 1 PUFF INHALE (07:51)
[2024-02-11] MEDS: Magnesium Sulfate/H2O 2 GM/50 ML PIGGYBACK IV (07:57)
[2024-02-11] MEDS: Insulin Lispro 100 UNIT/ML 3 ML VIAL SUBCUT ×4 (08:35→21:03)
[2024-02-11] MEDS: cilostazoL 50 MG TABLET PO ×2 (08:37→21:03)
[2024-02-11] MEDS: Magnesium Oxide 400 MG TABLET 200 MG PO (08:37)
[2024-02-11] MEDS: Metoprolol Tartrate 50 MG TABLET PO ×2 (08:37→21:04)
[2024-02-11] MEDS: hydrALAZINE HCl 25 MG TABLET PO ×2 (08:37→21:04)
[2024-02-11] MEDS: hydrOXYzine HCL 25 MG TABLET PO ×3 (08:38→21:04)
[2024-02-11] MEDS: Aspirin Enteric Coated 81 MG TABLET.DR PO (08:38)
[2024-02-11] MEDS: SITagliptin Phosphate 100 MG TABLET PO (08:38)
[2024-02-11] MEDS: lisinopriL 40 MG TABLET PO (08:38)
[2024-02-11] MEDS: Gabapentin 300 MG CAPSULE PO (08:38)
[2024-02-11 08:56] LABS: Adenovirus F 40/41 Not Detected (Not Detect.); Astrovirus Not Detected (Not Detect.); Campylobacter Not Detected (Not Detect.); Cryptosporidium Not Detected (Not Detect.); Cyclospora cayetanensis Not Detected (Not Detect.); E. coli EAEC Not Detected (Not Detect.); E. coli EPEC Detected (Not Detect.); E. coli ETEC Not Detected (Not Detect.); E. coli STEC Not Detected (Not Detect.); Entamoeba histolytica Not Detected (Not Detect.); Giardia lamblia Not Detected (Not Detect.); Norovirus GI/GII Not Detected (Not Detect.); Plesiomonas shigelloides Not Detected (Not Detect.); Rotavirus A Not Detected (Not Detect.); Sapovirus Not Detected (Not Detect.); Shigella sp./EIEC Not Detected (Not Detect.); Vibrio Not Detected (Not Detect.); Vibrio Cholerae Not Detected (Not Detect.); Yersinia enterocolitica Not Detected (Not Detect.)
[2024-02-11 09:42] LABS: Salmonella Detected (Not Detect.)
[2024-02-11 11:50] LABS: Glucose, Whole Blood 254 mg/dL (60-115)
[2024-02-11] MEDS: cefTRIAXone sodium 1 GM in 0.9 % Sodium Chloride 50 ML IV (12:08)
--- NOTE | 2024-02-11 14:22 | MHC.CM.PN ---
Patient is primarily mongolian speaking. CM assessment completed w/ naval gunfire liaison officer assistance. IMM delivered. Patient lives in a home w/ daughter, who is also her PRINCIPAL ARCHITECT 32 hrs/wk. Daughter assists w/ ADL's. Ambulates independently most times, but uses cane or walker PRN for dizziness. Has a nebulizer. PCP Anabelle Obrien [employer] No HCP. CM provided education and offered assistance. Patient will discuss w/ her daughter and will consider completing HCP prior to dc. DP: Goal is home, resume PRINCIPAL ARCHITECT services. Daughter to transport. CM will continue to follow.
--- NOTE | 2024-02-11 14:52 | P.PNIM_ITS ---
Subjective Subjective Date of Service: 02/11/24 Interval History: colitis Review of Systems has significant diarrhae, no fevers Physical Exam 2 Vital Signs: Vital Signs: Last Vital Signs Temp 97.4 F 02/11/24 07:30 Pulse 92 02/11/24 08:37 Resp 12 02/11/24 07:56 BP 131/61 02/11/24 08:38 Pulse Ox 93 02/11/24 07:30 O2 Del Method Room Air 02/11/24 07:30 BMI result Body Mass Index 29.8 Appearance: Alert.? Oriented X3.? cvs: rrr, [id number] , no murmur res: clear to auscultation ,no rhonchii or wheezing abd: no rebound or guarding ,nt, bs present. ext pulses present , no cyanosis . neuro: axo3 , nonfocal. Objective Data Active Medications Acetaminophen (Acetaminophen 325 Mg Tablet) 650 mg PO Q6H PRN PRN Reason: Pain, Mild (Pain Scale 1-3), fever or headache Aspirin (Aspirin Enteric Coated 81 Mg Tablet.) 81 mg PO DAILY [facility] Last Admin: 02/11/24 08:38 Dose: 81 mg Documented By: AIME Atorvastatin Calcium (Atorvastatin Calcium 40 Mg Tablet) 40 mg PO BEDTIME [facility] Last Admin: 02/10/24 20:25 Dose: 40 mg Documented By: DELIA Calcium Carbonate (Calcium Carbonate 750 Mg Tab.Chew) 750 mg PO Q4H PRN PRN Reason: Heartburn Calcium Carbonate/Cholecalciferol (Calcium + Vitamin D 250 Mg Tablet) 500 mg PO BEDTIME [facility] Last Admin: 02/10/24 20:25 Dose: 500 mg Documented By: DELIA Cilostazol (Cilostazol 50 Mg Tablet) 50 mg PO BID [facility] Last Admin: 02/11/24 08:37 Dose: 50 mg Documented By: AIME Enoxaparin Sodium (Enoxaparin Sodium 40 Mg/0.4 Ml Syringe) 40 mg SUBCUT Q24H [facility] Last Admin: 02/10/24 17:28 Dose: 40 mg Documented By: JACOBY Fluoxetine HCl (Fluoxetine Hcl 20 Mg Capsule) 40 mg PO BEDTIME [facility] Last Admin: 02/10/24 20:25 Dose: 40 mg Documented By: DELIA Fluticasone/Vilanterol (Fluticasone/Vilanterol 100/25 Blst.W.Dev) 1 puff INHALE RDAILY [facility] Last Admin: 02/11/24 07:51 Dose: 1 puff Documented By: MUNIRA Gabapentin (Gabapentin 300 Mg Capsule) 300 mg PO DAILY [facility] Last Admin: 02/11/24 08:38 Dose: 300 mg Documented By: AIME Glucose (Glucose Gel 15 Gm Gel..Gram.) 15 gm PO Q15M PRN; Protocol PRN Reason: per Hypoglycemia Standing Ord. Hydralazine HCl (Hydralazine Hcl 25 Mg Tablet) 25 mg PO BID [facility]; Protocol Last Admin: 02/11/24 08:37 Dose: 25 mg Documented By: AIME Hydroxyzine HCl (Hydroxyzine Hcl 25 Mg Tablet) 25 mg PO TID [facility] Last Admin: 02/11/24 08:38 Dose: 25 mg Documented By: AIME Dextrose (D10) 250 mls @ 750 mls/hr IV Q15M PRN; Protocol PRN Reason: per Hypoglycemia Standing Ord. Ceftriaxone Sodium 1 gm/ (Sodium Chloride) 50 mls @ 100 mls/hr IV Q24H [facility] Last Infusion: 02/11/24 12:59 Dose: Infused Documented By: AIME Metronidazole (Flagyl) 500 mg in 100 mls @ 100 mls/hr IV Q8H [facility] Last Infusion: 02/11/24 08:02 Dose: Infused Documented By: AIME Insulin Glargine (Insulin Glargine,Hum.Rec.Anlog 100 Unit/Ml 10 Ml Vial) 8 unit SUBCUT BEDTIME [facility] Last Admin: 02/10/24 20:26 Dose: 8 unit Documented By: KHARIRISForrest Insulin Human Lispro (Insulin Lispro 100 Unit/Ml 3 Ml Vial) 0 unit SUBCUT QIDACHS [facility]; Protocol Last Admin: 02/11/24 12:04 Dose: 6 unit Documented By: AIME Lisinopril (Lisinopril 40 Mg Tablet) 40 mg PO DAILY [facility]; Protocol Last Admin: 02/11/24 08:38 Dose: 40 mg Documented By: AIME Magnesium Hydroxide (Milk Of Magnesia 30 Ml Oral.Susp) 30 ml PO DAILY PRN PRN Reason: Constipation Magnesium Oxide (Magnesium Oxide 400 Mg Tablet) 200 mg PO DAILY [facility] Last Admin: 02/11/24 08:37 Dose: 200 mg Documented By: AIME Melatonin (Melatonin 3 Mg Tablet) 6 mg PO BEDTIME PRN PRN Reason: Insomnia Metoprolol Tartrate (Metoprolol Tartrate 50 Mg Tablet) 50 mg PO BID [facility]; Protocol Last Admin: 02/11/24 08:37 Dose: 50 mg Documented By: AIME Ondansetron HCl (Ondansetron Hcl 4 Mg/2 Ml Vial) 4 mg IVPUSH Q8H PRN PRN Reason: Nausea and Vomiting Sitagliptin Phosphate (Sitagliptin Phosphate 100 Mg Tablet) 100 mg PO DAILY [facility] Last Admin: 02/11/24 08:38 Dose: 100 mg Documented By: AIME Sodium Chloride (0.9 % Sodium Chloride Flush 3 Ml Syringe) 3 ml IVFLUSH QSHIFT [facility] Last Admin: 02/11/24 07:19 Dose: Not Given Documented By: AIME Non-Admin Reason: IV Running Tiotropium [place] (Tiotropium [place] 2.5 Mcg 1 Puff/2.5 Mcg Mist.Inhal) 2 puff INHALE RDAILY [facility] Last Admin: 02/11/24 07:51 Dose: 2 puff Documented By: MUNIRA Labs 02/11/24 05:04 02/11/24 05:04 Labs: Laboratory Results - last 24 hr 02/10/24 02/10/24 02/10/24 01:40 11:34 12:50 MCV MCH MCHC RDW Plt Count MPV Immature Gran % (Auto) Neut % (Auto) Lymph % (Auto) [place] % (Auto) Eos % (Auto) Baso % (Auto) Lymph # (Auto) [place] # (Auto) Eos # (Auto) Baso # (Auto) Abs Immat Gran (auto) Absolute Neuts (auto) Absolute Nucleated RBC Nucleated RBC % (auto) Neutrophils % (Manual) Band Neutrophils % Lymphocytes % (Manual) Monocytes % (Manual) Metamyelocytes % Abs Neuts (Manual) Lymphocytes # (Manual) Monocytes # (Manual) Metamyelocytes # Platelet Estimate Plt Morphology Comment RBC Morphology Polychromasia Hypochromasia Ovalocytes Anion Gap Estim Creat Clear Calc Estimated GFR POC Glucose Random Glucose Calcium Magnesium Procalcitonin 0.18 Stl C. cayetanensis PCR Not Detected Stool Rotavirus A PCR Not Detected Stl Adenov F PCR Not Detected Stool Astrovirus (PCR) Not Detected Stool Campylobacter PCR Not Detected Stool Cryptosporidium PCR Not Detected Stl Sh Tox Pr E STEC PCR Not Detected Stool E coli O157 PCR Not applicable Stl Enterotoxigenic E PCR Not Detected Stool EPEC (PCR) Detected A Stool EAEC (PCR) Not Detected Stl E. histolytica PCR Not Detected Stool Giardia Lamblia PCR Not Detected Stl P. shigelloides PCR Not Detected Stool Salmonella PCR Detected A Stool Sapovirus (PCR) Not Detected Stl Shigella/EIEC PCR Not Detected St Y.enterocolitica PCR Not Detected Stool Vibrio (PCR) Not Detected Stl Vibrio cholerae PCR Not Detected Stl Norovirus GI/GII PCR Not Detected C. difficile Tox B Gene NEGATIVE S. pyogenes GrpA TAYLER Cancelled 02/10/24 02/10/24 02/11/24 16:53 20:11 05:04 MCV 81.7 MCH 26.3 L MCHC 32.1 RDW 15.0 Plt Count 209 MPV 10.8 Immature Gran % (Auto) Cancelled Neut % (Auto) Cancelled Lymph % (Auto) Cancelled [place] % (Auto) Cancelled Eos % (Auto) Cancelled Baso % (Auto) Cancelled Lymph # (Auto) Cancelled [place] # (Auto) Cancelled Eos # (Auto) Cancelled Baso # (Auto) Cancelled Abs Immat Gran (auto) Cancelled Absolute Neuts (auto) Cancelled Absolute Nucleated RBC 0.000 Nucleated RBC % (auto) 0.0 Neutrophils % (Manual) 69 Band Neutrophils % 13 H Lymphocytes % (Manual) 10 L Monocytes % (Manual) 7 Metamyelocytes % 1 Abs Neuts (Manual) 5.2 Lymphocytes # (Manual) 0.6 L Monocytes # (Manual) 0.4 Metamyelocytes # 0.1 Platelet Estimate NORMAL Plt Morphology Comment NORMAL RBC Morphology NOTED Polychromasia 1+ (0-2) Hypochromasia 1+ (5-14) Ovalocytes 1+ (5-14) Anion Gap 13 Estim Creat Clear Calc 60.7 Estimated GFR > 60 POC Glucose 260 H 236 H Random Glucose 200 H Calcium 8.7 Magnesium 1.3 L* Procalcitonin Stl C. cayetanensis PCR Stool Rotavirus A PCR Stl Adenov F PCR Stool Astrovirus (PCR) Stool Campylobacter PCR Stool Cryptosporidium PCR Stl Sh Tox Pr E STEC PCR Stool E coli O157 PCR Stl Enterotoxigenic E PCR Stool EPEC (PCR) Stool EAEC (PCR) Stl E. histolytica PCR Stool Giardia Lamblia PCR Stl P. shigelloides PCR Stool Salmonella PCR Stool Sapovirus (PCR) Stl Shigella/EIEC PCR St Y.enterocolitica PCR Stool Vibrio (PCR) Stl Vibrio cholerae PCR Stl Norovirus GI/GII PCR C. difficile Tox B Gene S. pyogenes GrpA TAYLER 02/11/24 02/11/24 07:37 11:46 MCV MCH MCHC RDW Plt Count MPV Immature Gran % (Auto) Neut % (Auto) Lymph % (Auto) [place] % (Auto) Eos % (Auto) Baso % (Auto) Lymph # (Auto) [place] # (Auto) Eos # (Auto) Baso # (Auto) Abs Immat Gran (auto) Absolute Neuts (auto) Absolute Nucleated RBC Nucleated RBC % (auto) Neutrophils % (Manual) Band Neutrophils % Lymphocytes % (Manual) Monocytes % (Manual) Metamyelocytes % Abs Neuts (Manual) Lymphocytes # (Manual) Monocytes # (Manual) Metamyelocytes # Platelet Estimate Plt Morphology Comment RBC Morphology Polychromasia Hypochromasia Ovalocytes Anion Gap Estim Creat Clear Calc Estimated GFR POC Glucose 195 H 254 H Random Glucose Calcium Magnesium Procalcitonin Stl C. cayetanensis PCR Stool Rotavirus A PCR Stl Adenov F 40/41 PCR Stool Astrovirus (PCR) Stool Campylobacter PCR Stool Cryptosporidium PCR Stl Sh Tox Pr E STEC PCR Stool E coli O157 PCR Stl Enterotoxigenic E PCR Stool EPEC (PCR) Stool EAEC (PCR) Stl E. histolytica PCR Stool Giardia [place]lia PCR Stl P. shigelloides PCR Stool Salmonella PCR Stool Sapovirus (PCR) Stl Shigella/EIEC PCR St Y.enterocolitica PCR Stool Vibrio (PCR) Stl Vibrio cholerae PCR Stl Norovirus GI/GII PCR C. difficile Tox B Gene S. pyogenes GrpA TAYLER Microbiology Microbiology Results: Microbiology 02/10/24 12:44 Blood Culture - Preliminary Blood - Venous No growth after 24 hours. 02/10/24 12:44 Blood Culture - Preliminary Blood - Venous No growth after 24 hours. Assessment and Plan (1) Hypoxia: Status: Acute Plan 68-year-old female with pertinent history of insulin-dependent diabetes mellitus, mood disorder, hypertension, COPD not on home oxygen, mixed hyperlipidemia who presents to the emergency department for evaluation of fever and diarrhea. Sepsis due to acute colitis: Resuscitated with IV crystalloids. Concern for bacterial infection with bandemia. Lactic acid noraml and blood culture pending . c diff neg Gip -ePeC ,Salmonella pcr positive continue ceftriaxone and dc metronidazole. C diff and GI panel pending. Procalcitonin pending Insulin-dependent diabetes mellitus with hyperglycemia: continue adjusted basal plus insulin regimen Hypertension: Continue home antihypertensives Hypomagnesemia due to GI losses: Repleted and moniter . COPD: No exacerbation during admission. Continue home inhaler Mixed hyperlipidemia: On statin DVT prophylaxis: Lovenox Full code hospital stay for IV antibiotics (as above), which is not possible in a lesser acute setting, moniter electrolytes . Id input for salmonalla colitis Quality Stroke Does the patient have a stroke diagnosis?: No VTE Prior VTE?: No VTE Risk Level:: Medical - moderate - high VTE Device Contraindication: Treatment Not Indicated VTE Drug Contraindication: N/A - Med Ordered
[2024-02-11] MEDS: Enoxaparin Sodium 40 MG/0.4 ML SYRINGE SUBCUT (15:09)
[2024-02-11] MEDS: 0.9 % Sodium Chloride Flush 3 ML SYRINGE IVFLUSH ×2 (15:10→21:05)
[2024-02-11 16:28] LABS: Glucose, Whole Blood 191 mg/dL (60-115)
[2024-02-11 20:51] LABS: Glucose, Whole Blood 212 mg/dL (60-115)
[2024-02-11] MEDS: Insulin Glargine,Hum.rec.anlog 100 UNIT/ML 10 ML VIAL 10 UNIT SUBCUT (21:03)
[2024-02-11] MEDS: Calcium + Vitamin D 250 MG TABLET 500 MG PO (21:03)
[2024-02-11] MEDS: FLUoxetine HCl 20 MG CAPSULE 40 MG PO (21:04)
[2024-02-11] MEDS: Atorvastatin Calcium 40 MG TABLET PO (21:04)
--- NOTE | 2024-02-11 23:00 | P.CNID_ITS ---
History of Present Illness Data of Consult Service Date: 02/11/24 Requesting physician: Juana Tanner Primary Care Provider: DEMETRICE Rodgers HPI Reason for consult: diarrhea She presents feeling weak and having diarrhea for last two days. She went to [employer] where lots of food was served five days ago and took her food home and ate later. She did refrigerate. She doesnt mention eating eggs. Her daughter says two other relatives of patient were ill and in hospital getting checked out with diarrhea and one might get admitted. CT abdomen and pelvis shows ascending colitis. Review of Systems 2 Review of Systems: Yes Unobtainable due to mental condition [facility] Past Medical History Medical History (Updated 02/11/24 @ 23:03 by Alyssa Og MD) Salmonella Hypoxemia History of uterine cancer Type 2 diabetes mellitus, with long-term current use of insulin COPD (chronic obstructive pulmonary disease) Smoker PVD (peripheral vascular disease) Osteoporosis Family history of colon cancer Anxiety Dyslipidemia HTN (hypertension) Family History Family History Brother Colon cancer Family history: reviewed and not pertinent Surgical History Surgical History History of lung surgery History of bunionectomy of left great toe History of colonoscopy History of pubovaginal sling History of hysterectomy Social History Social History Household Members: Family Housing: House Alcohol intake: never Patient Tobacco Use Status: Former Tobacco user Tobacco use type: Cigarette Cigarettes Per Day: 15 service: No Meds Allergies Allergy/AdvReac Type Severity Reaction Status Date / Time ciprofloxacin [From CIPRO] Allergy Severe ANAPHYLAXIS Verified 02/10/24 11:23 Active Medications: Current Medications Acetaminophen (Acetaminophen 325 Mg Tablet) 650 mg PO Q6H PRN PRN Reason: Pain, Mild (Pain Scale 1-3), fever or headache Aspirin (Aspirin Enteric Coated 81 Mg Tablet.) 81 mg PO DAILY [facility] Last Admin: 02/11/24 08:38 Dose: 81 mg Atorvastatin Calcium (Atorvastatin Calcium 40 Mg Tablet) 40 mg PO BEDTIME [facility] Last Admin: 02/11/24 21:04 Dose: 40 mg Calcium Carbonate (Calcium Carbonate 750 Mg Tab.Chew) 750 mg PO Q4H PRN PRN Reason: Heartburn Calcium Carbonate/Cholecalciferol (Calcium + Vitamin D 250 Mg Tablet) 500 mg PO BEDTIME [facility] Last Admin: 02/11/24 21:03 Dose: 500 mg Cilostazol (Cilostazol 50 Mg Tablet) 50 mg PO BID [facility] Last Admin: 02/11/24 21:03 Dose: 50 mg Enoxaparin Sodium (Enoxaparin Sodium 40 Mg/0.4 Ml Syringe) 40 mg SUBCUT Q24H [facility] Last Admin: 02/11/24 15:09 Dose: 40 mg Fluoxetine HCl (Fluoxetine Hcl 20 Mg Capsule) 40 mg PO BEDTIME [facility] Last Admin: 02/11/24 21:04 Dose: 40 mg Fluticasone/Vilanterol (Fluticasone/Vilanterol 100/25 Blst.W.Dev) 1 puff INHALE RDAILY [facility] Last Admin: 02/11/24 07:51 Dose: 1 puff Gabapentin (Gabapentin 300 Mg Capsule) 300 mg PO DAILY [facility] Last Admin: 02/11/24 08:38 Dose: 300 mg Glucose (Glucose Gel 15 Gm Gel..Gram.) 15 gm PO Q15M PRN; Protocol PRN Reason: per Hypoglycemia Standing Ord. Hydralazine HCl (Hydralazine Hcl 25 Mg Tablet) 25 mg PO BID [facility]; Protocol Last Admin: 02/11/24 21:04 Dose: 25 mg Hydroxyzine HCl (Hydroxyzine Hcl 25 Mg Tablet) 25 mg PO TID [facility] Last Admin: 02/11/24 21:04 Dose: 25 mg Dextrose (D10) 250 mls @ 750 mls/hr IV Q15M PRN; Protocol PRN Reason: per Hypoglycemia Standing Ord. Ceftriaxone Sodium 1 gm/ (Sodium Chloride) 50 mls @ 100 mls/hr IV Q24H [facility] Last Infusion: 02/11/24 12:59 Dose: Infused Insulin Glargine (Insulin Glargine,Hum.Rec.Anlog 100 Unit/Ml 10 Ml Vial) 10 unit SUBCUT BEDTIME [facility] Last Admin: 02/11/24 21:03 Dose: 10 unit Insulin Human Lispro (Insulin Lispro 100 Unit/Ml 3 Ml Vial) 0 unit SUBCUT QIDACHS [facility]; Protocol Last Admin: 02/11/24 21:03 Dose: 4 unit Lisinopril (Lisinopril 40 Mg Tablet) 40 mg PO DAILY [facility]; Protocol Last Admin: 02/11/24 08:38 Dose: 40 mg Magnesium Hydroxide (Milk Of Magnesia 30 Ml Oral.Susp) 30 ml PO DAILY PRN PRN Reason: Constipation Magnesium Oxide (Magnesium Oxide 400 Mg Tablet) 200 mg PO DAILY [facility] Last Admin: 02/11/24 08:37 Dose: 200 mg Melatonin (Melatonin 3 Mg Tablet) 6 mg PO BEDTIME PRN PRN Reason: Insomnia Metoprolol Tartrate (Metoprolol Tartrate 50 Mg Tablet) 50 mg PO BID [facility]; Protocol Last Admin: 02/11/24 21:04 Dose: 50 mg Ondansetron HCl (Ondansetron Hcl 4 Mg/2 Ml Vial) 4 mg IVPUSH Q8H PRN PRN Reason: Nausea and Vomiting Sitagliptin Phosphate (Sitagliptin Phosphate 100 Mg Tablet) 100 mg PO DAILY [facility] Last Admin: 02/11/24 08:38 Dose: 100 mg Sodium Chloride (0.9 % Sodium Chloride Flush 3 Ml Syringe) 3 ml IVFLUSH QSHIFT [facility] Last Admin: 02/11/24 21:05 Dose: 3 ml Tiotropium [place] (Tiotropium [place] 2.5 Mcg 1 Puff/2.5 Mcg Mist.Inhal) 2 puff INHALE RDAILY [facility] Last Admin: 02/11/24 07:51 Dose: 2 puff Home Medications ?Medication ?Instructions ?Recorded ?Confirmed ?Last Taken ?Type aspirin 81 mg tablet,delayed 81 mg PO DAILY 08/29/21 02/10/24 02/09/24 History release atorvastatin 40 mg tablet 40 mg PO BEDTIME 08/29/21 02/10/24 02/09/24 History calcium carbonate 600 mg-vitamin 1 tab PO BEDTIME 08/29/21 02/10/24 02/09/24 History D3 10 mcg (400 unit) tablet cilostazol 50 mg tablet 50 mg PO BID 08/29/21 02/10/24 02/09/24 History fluoxetine 40 mg capsule 40 mg PO BEDTIME 08/29/21 02/10/24 02/09/24 History gabapentin 300 mg capsule 300 mg PO DAILY 08/29/21 02/10/24 02/09/24 History hydralazine 25 mg tablet 25 mg PO BID 08/29/21 02/10/24 02/09/24 History hydroxyzine pamoate 25 mg capsule 25 mg PO TID 08/29/21 02/10/24 02/09/24 History insulin syringe-needle U-100 1/2 #10 ea 08/29/21 01/02/23 Unknown History mL 31 gauge x 15/64 (BD Veo Insulin Syringe Ultra-Fine) lisinopril 40 mg tablet 40 mg PO DAILY 08/29/21 02/10/24 02/09/24 History metformin 1,000 mg tablet 1,000 mg PO BID 08/29/21 02/10/24 02/09/24 History fluticasone 250 mcg-salmeterol 50 1 inh inhalation BID 05/14/23 02/10/24 02/09/24 History mcg/dose blistr powdr for inhalation umeclidinium 62.5 mcg/actuation 1 inh inhalation DAILY 05/14/23 02/10/24 02/09/24 History blister powder for inhalation (Incruse Ellipta) insulin glargine 100 unit/mL 15 unit subcut BEDTIME 12/02/23 02/10/24 02/09/24 History subcutaneous solution (Lantus U-100 Insulin) sitagliptin phosphate 100 mg 100 mg PO DAILY 12/02/23 02/10/24 02/09/24 History tablet (Januvia) magnesium 200 mg tablet 200 mg PO DAILY 02/10/24 02/10/24 02/09/24 History metoprolol tartrate 50 mg tablet 50 mg PO BID 02/10/24 02/10/24 02/09/24 History Physical Exam 2 Vital Signs: Vital Signs: Last Vital Signs Temp 98.9 F 02/11/24 19:49 Pulse 88 02/11/24 21:04 Resp 16 02/11/24 19:49 BP 133/65 02/11/24 21:04 Pulse Ox 94 02/11/24 19:49 O2 Del Method Room Air 02/11/24 19:49 BMI result Body Mass Index 29.8 Const: General: cooperative HEENT: Head: Yes normal to inspection Face and sinus: Yes normal facial exam Mouth: Normal oral and palatal mucosa present Teeth and gingiva: d entition normal Eyes: General: appearance normal, both eyes and all related structures P upils: Equal, round and reactive pupils present Resp: Effort & Inspection: normal respiratory effort Cardio: Rate: regular rate Rhythm: regular rhythm GI: Palpation (GI): Soft to palpation and nontender : General: Yes no CVA tenderness Back/Spine/Pelvis: Back: no CVA tenderness Skin: General skin exam: no rashes or lesions noted Neuro: General: moves all extremities Cranial nerves: Yes Equal, round and reactive pupils present Extrem: General: Yes normal to inspection Psych: Other: sleepy Appearance: grossly normal Results Labs 02/11/24 05:04 02/11/24 05:04 Labs: Short CBC 02/11/24 Range/Units 05:04 WBC 6.4 (4.8-10.8) X10*3/uL Hgb 9.9 L (12.0-16.0) g/dl Hct 30.8 L (37.0-47.0) % Plt Count 209 (160-400) X10*3/uL BMP 02/11/24 05:04 Sodium 137 Potassium 3.8 Chloride 104 Carbon Dioxide 24 BUN 15 Creatinine 0.92 Calcium 8.7 Microbiology Microbiology Results: Microbiology 02/10/24 12:44 Blood - Venous Blood Culture - Preliminary No growth after 24 hours. 02/10/24 12:44 Blood - Venous Blood Culture - Preliminary No growth after 24 hours. Assessment and Plan (1) Bandemia: Status: Acute (2) Colitis: Status: Acute (3) Salmonella: Status: Acute Plan Salmonella colitis This is likely from [facility] with multiple people ill. There is no reptile exposure. This is probably sensitive to Ceftriaxone and is safer than Levaquin Would treat elderly patient with ascending colitis with antibiotics. Possible 14 days cephalosporin and may change to po on discharge. EPEC needs no treatment. DPH may interview patient and family. Await sensis Salmonella and type.
[2024-02-12] VITALS (10 sets, daily range): BP systolic 116–146; BP diastolic 51–91; PULSE 85–164; RESP 17–18; TEMP 36.2–36.8; O2SAT 91–94
--- NOTE | 2024-02-12 | ECG_ITS ---
Test Reason : tachy Blood Pressure : / mmHG Vent. Rate : 145 BPM Atrial Rate : 000 BPM P-R Int : 000 ms QRS Dur : 100 ms QT Int : 320 ms P-R-T Axes : 000 -37 146 degrees QTc Int : 497 ms Atrial flutter with rapid ventricular response Left axis deviation Minimal voltage criteria for LVH, may be normal variant ( [employer] product ) Cannot rule out Anterior infarct , age undetermined Abnormal ECG When compared with ECG of 10-FEB-2024 11:23, [place] flutter has replaced Sinus rhythm T wave inversion less evident in Lateral leads Referred By: Darius Aly Electronically Signed By:OSEI RODRIGUEZ MD
--- NOTE | 2024-02-12 | ECG_ITS ---
Test Reason : converted to sr Blood Pressure : / mmHG Vent. Rate : 085 BPM Atrial Rate : 085 BPM P-R Int : 130 ms QRS Dur : 098 ms QT Int : 400 ms P-R-T Axes : 014 -05 011 degrees QTc Int : 476 ms Sinus rhythm with Premature atrial complexes Nonspecific ST abnormality Abnormal ECG When compared with ECG of 12-FEB-2024 02:09, Sinus rhythm has replaced Atrial flutter Vent. rate has decreased BY [address] no longer depressed in Lateral leads Nonspecific T wave abnormality now evident in Inferior leads T wave inversion no longer evident in Lateral leads Referred By: Juana Tanner Electronically Signed By:OSEI RODRIGUEZ MD
--- NOTE | 2024-02-12 02:27 | PM.EVENT ---
Event Note Date of Service: 02/12/24 Event Note: New onset AFib with RVR. Patient asymptomatic. We will give Lopressor 5 mg IV, continue Lopressor 50 mg b.i.d., check echo, change prophylactic Lovenox to Eliquis. Replete magnesium, cardiology eval Time Spent With Patient Time: Total time managing care of this patient today ____ minutes.
[2024-02-12] MEDS: Metoprolol Tartrate 5 MG/5 ML VIAL IVPUSH (02:42)
[2024-02-12] MEDS: Magnesium Sulfate/H2O 2 GM/50 ML PIGGYBACK IV (02:54)
[2024-02-12 03:05] LABS: Glucose, Whole Blood 250 mg/dL (60-115)
[2024-02-12] MEDS: dilTIAZem HCL 50 MG/10 ML VIAL 10 MG IVPUSH (03:10)
--- NOTE | 2024-02-12 04:09 | PC.NURSE ---
Pt's heart rate 130'3-150's notified ordered EKG showed at fib with RVR.Dr. carlisle ordered lopressor 5mg iv heart rate still elevated ordered cardizem 10mg iv heart rate still in 140's-150's [place] [facility] [place] cardiz[place] drip.Pt is asymptomatic.Also given 2mg iv mag.
--- NOTE | 2024-02-12 05:38 | PC.NURSE ---
TRANSFERRED FROM 357-1 TO 444-1 APPROX 04:20...ALERT..ORIENTED X3..DAUGHTER AT BEDSIDE TO TRANSLATE..RESPIRATIONS EASY..DENIED PAIN OR SOB...PATIENT CONVERTED FROM ATRIAL FIB RVR TO NSR/S.TACH HR 98-102 JUST PRIOR TO TRANSFER...ASYMPTOMATIC...CURRENTLY NSR HR 90'S..DR RICKETTS UPDATED..CARDIZEM DRIP NEVER INITIATED..TO HOLD CARDIZEM DRIP UNLESS PATIENT REVERTS TO RAPID ATRIAL FIB
--- NOTE | 2024-02-12 07:00 | CA_ITS ---
Transthoracic Echocardiogram Patient (Last, First, Middle): Tete Ayon, Gender: Female Date of : 1955 Age: 68 Procedure Date: 02/12/2024 Procedure Type: Transthoracic Echocardiogram Location: [facility] [place] Height: 165.1 cm Weight: 81.19 kg BSA: 1.89 m2 Heart Rate: 82 bpm BP: 135 / 63 mmHg Rock Climbing Team Member: SB Referring MD: Darius Aly MD Asset Administrator: Luis Bradley MD Symptoms: afib Study Quality: Adequate ECG Rhythm: Sinus with extra beats Conclusions: - 1. Mildly to moderately reduced LV ejection fraction of 40-45% with impaired relaxation filling pattern 2. Calcific aortic and mitral valve changes noted with normal cardiac valvular Dopplers 3. No gross pericardial effusion Findings Left Ventricle Normal left ventricular cavity size. There is normal left ventricular wall thickness. The left ventricular systolic function is mild to moderately decreased. The visually estimated ejection fraction is between 40-45%. Spectral Doppler is indicative of an impaired relaxation filling pattern. E/E prime ratio is between 8 and 15 consistent with indeterminate filling pressures. Right Ventricle Mildly increased right ventricular cavity size. There is normal right ventricular systolic function. Atria Both atria are normal in size. Interatrial shunt cannot be excluded. Aortic Valve There is mild calcification of the aortic valve. There is no aortic valve stenosis. There is no aortic valve regurgitation. Mitral Valve There is mild anterior and posterior mitral leaflet thickening. There is mild posterior mitral annular calcification. There is trace mitral valve regurgitation. There is no mitral valve stenosis. Pulmonic Valve The pulmonic valve was not well visualized. Tricuspid Valve The tricuspid valve was not well visualized. The right ventricular systolic pressure is not calculated. Normal right atrial pressure. Great Vessels The aorta was not well visualized. The pulmonary artery was not well visualized. Small plaque is seen in the sino tubular ridge. Venous The inferior vena cava is normal in size and collapses greater than 50% with inspiration. Pericardium/Pleural There is no evidence of pericardial effusion. Measurements 2D Linear Measurements IVSd: 0.72 0.6-0.9/0.6-1.0 cm LVIDd: 5.42 3.9-5.3/4.2-5.9 cm LVIDd Index: 2.87 2.4-3.2/2.2-3.1 cm/m2 LVIDs: 4.20 2.0-3.6 cm LVPWd: 0.89 0.7-1.1 cm LA Diam: 4.10 2.7-3.8/3.0-4.0 cm LAIDs Index: 2.17 1.5-2.3 cm/m2 LV Mass: 195.43 67-162/88-224 g LV Mass Index: 103.40 43-95/49-115 g/m2 LVOT Diam: 2.10 3.0+(-)1.3 cm 2D Systolic Function EF 4C: 39.90 >55% EF 2C: 39.80 >55% EF BiP: 40.30 >55% Mitral Valve MV Pk E: 0.85 MV PK A: 1.36 MV Decel Time: 239.00 E/A: 0.60 E'Lateral: 2.94 E'Medial: 2.94 E/E' Med: 28.90 E/E' Lat: 28.90 PHT: 70.00 MVA PHT: 3.14 Decel Jack: 3.55 Aortic Valve AoV Pk Vitaly: 1.32 AoV Pk Grad: 7.00 ALKA: 3.00 LVOT LVOT Pk Vitaly: 1.01 LVOT Mn Vitaly: 0.69 LVOT VTI: 0.19 LVOT Pk Grad: 4.00 LVOT Mn Grad: 2.00 LVOT Diam: 2.10 LVOT Area: 3.46 Diastolic Function MV Pk E: 0.85 MV Pk A: 1.36 E/A: 0.60 E'Medial: 2.94 E/E' Med: 28.90 E' Laterial: 2.94 E/E' Lat: 28.90 Right Ventricle TAPSE (mm): 18.90 TVS' Vitaly: 13.70 Tricuspid Valve RA Press: 3.00 Great Vessels Aorta Sinus of Valsalva: 3.30 2.0-3.5 cm Pulmonary Valve PV Pk Vitaly: 0.81 Peak PV Grad: 3.00 Updated in Other Vendor System with Status of Final Luis Bradley MD electronically signed on 02/12/2024 12:54:52 PM with status of Final
[2024-02-12 07:39] LABS: Glucose, Whole Blood 233 mg/dL (60-115)
[2024-02-12] MEDS: Fluticasone/Vilanterol 100/25 BLST.W.DEV 1 PUFF INHALE (08:22)
[2024-02-12] MEDS: Tiotropium Bromide 2.5 mcg 1 PUFF/2.5 MCG MIST.INHAL 2 PUFF INHALE (08:22)
[2024-02-12 08:40] LABS: Hematocrit 31.5 % (37.0-47.0); Hemoglobin 10.5 g/dl (12.0-16.0); Mean Corpuscular HGB Conc 33.3 g/dl (31.0-35.0); Mean Corpuscular Hemoglobin 26.9 pg (27.0-33.0); Mean Corpuscular Volume 80.8 fL (80.0-98.0); Mean Platelet Volume 10.4 fL (9.4-12.3); Platelet Count 238 X10*3/uL (160-400); Red Cell Distribution Width 14.9 % (11.0-16.0); White Blood Count 7.4 X10*3/uL (4.8-10.8)
[2024-02-12 09:08] LABS: Anion Gap 13 (12-20); Blood Urea Nitrogen 11 mg/dL (9-16); Calcium 8.8 mg/dL (8.4-10.2); Carbon Dioxide 21 mmol/L (22-29); Chloride 107 mmol/L (96-108); Creatinine Clr Calc Pharmacy 65.7; Estimated Glomerular Filt Rate > 60; Glucose Random 246 mg/dL (60-115); Magnesium 1.7 mg/dL (1.6-2.6); Sodium 137 mmol/L (135-145)
[2024-02-12] MEDS: Apixaban 5 MG TABLET PO ×2 (09:08→21:44)
[2024-02-12] MEDS: hydrOXYzine HCL 25 MG TABLET PO ×3 (09:08→21:44)
[2024-02-12] MEDS: Magnesium Oxide 400 MG TABLET 200 MG PO (09:08)
[2024-02-12] MEDS: Metoprolol Tartrate 50 MG TABLET PO ×2 (09:08→21:43)
[2024-02-12] MEDS: Gabapentin 300 MG CAPSULE PO (09:09)
[2024-02-12] MEDS: cilostazoL 50 MG TABLET PO ×2 (09:09→21:44)
[2024-02-12] MEDS: hydrALAZINE HCl 25 MG TABLET PO ×2 (09:09→21:43)
[2024-02-12] MEDS: SITagliptin Phosphate 100 MG TABLET PO (09:09)
[2024-02-12] MEDS: Insulin Lispro 100 UNIT/ML 3 ML VIAL SUBCUT ×4 (09:10→21:44)
[2024-02-12] MEDS: 0.9 % Sodium Chloride Flush 3 ML SYRINGE IVFLUSH ×3 (09:10→21:45)
[2024-02-12 09:24] LABS: Thyroid Stimulating Hormone 1.47 uIU/mL (0.32-4.0)
--- NOTE | 2024-02-12 10:51 | MHC.CM.PN ---
Per ROUNDS discussion, Patient is not yet medically cleared for dc (needs cardiac work up); home/resume services is the goal and CM has initiated and will follow for dc planning.
[2024-02-12 11:10] LABS: Glucose, Whole Blood 270 mg/dL (60-115)
[2024-02-12] MEDS: cefTRIAXone sodium 1 GM in 0.9 % Sodium Chloride 50 ML IV (11:39)
--- NOTE | 2024-02-12 14:32 | HO.PM.IMPN ---
Subjective Subjective Date of Service: 02/12/24 Interval History: colitis ,afib Review of Systems diarrhae improving , hr also improving -now nsr started on bb /eliquis Physical Exam Vital Signs: Vital Signs: Last Vital Signs Temp 98.1 F 02/12/24 07:51 Pulse 86 02/12/24 07:51 Resp 18 02/12/24 07:51 BP 122/58 L 02/12/24 07:51 Pulse Ox 94 02/12/24 07:51 O2 Del Method Room Air 02/12/24 07:51 BMI result Body Mass Index 29.8 Appearance: Alert.? Oriented X3.? cvs: rrr, [id number] . res: clear to auscultation ,no rhonchii or wheezing abd: no rebound or guarding ,nt, bs present. ext pulses present , no cyanosis . neuro: axo3 , nonfocal. Objective Data Active Medications Acetaminophen (Acetaminophen 325 Mg Tablet) 650 mg PO Q6H PRN PRN Reason: Pain, Mild (Pain Scale 1-3), fever or headache Apixaban (Apixaban 5 Mg Tablet) 5 mg PO BID [facility] Last Admin: 02/12/24 09:08 Dose: 5 mg Documented By: VALERIA Atorvastatin Calcium (Atorvastatin Calcium 40 Mg Tablet) 40 mg PO BEDTIME [facility] Last Admin: 02/11/24 21:04 Dose: 40 mg Documented By: ROSELINE Calcium Carbonate (Calcium Carbonate 750 Mg Tab.Chew) 750 mg PO Q4H PRN PRN Reason: Heartburn Calcium Carbonate/Cholecalciferol (Calcium + Vitamin D 250 Mg Tablet) 500 mg PO BEDTIME [facility] Last Admin: 02/11/24 21:03 Dose: 500 mg Documented By: ROSELINE Cilostazol (Cilostazol 50 Mg Tablet) 50 mg PO BID [facility] Last Admin: 02/12/24 09:09 Dose: 50 mg Documented By: VALERIA Fluoxetine HCl (Fluoxetine Hcl 20 Mg Capsule) 40 mg PO BEDTIME [facility] Last Admin: 02/11/24 21:04 Dose: 40 mg Documented By: ROSELINE Fluticasone/Vilanterol (Fluticasone/Vilanterol 100/25 Blst.W.Dev) 1 puff INHALE RDAILY [facility] Last Admin: 02/12/24 08:22 Dose: 1 puff Documented By: AVILA Gabapentin (Gabapentin 300 Mg Capsule) 300 mg PO DAILY [facility] Last Admin: 02/12/24 09:09 Dose: 300 mg Documented By: VALERIA Glucose (Glucose Gel 15 Gm Gel..Gram.) 15 gm PO Q15M PRN; Protocol PRN Reason: per Hypoglycemia Standing Ord. Hydralazine HCl (Hydralazine Hcl 25 Mg Tablet) 25 mg PO BID [facility]; Protocol Last Admin: 02/12/24 09:09 Dose: 25 mg Documented By: VALERIA Hydroxyzine HCl (Hydroxyzine Hcl 25 Mg Tablet) 25 mg PO TID [facility] Last Admin: 02/12/24 09:08 Dose: 25 mg Documented By: VALERIA Dextrose (D10) 250 mls @ 750 mls/hr IV Q15M PRN; Protocol PRN Reason: per Hypoglycemia Standing Ord. Ceftriaxone Sodium 1 gm/ (Sodium Chloride) 50 mls @ 100 mls/hr IV Q24H [facility] Last Infusion: 02/12/24 12:09 Dose: Infused Documented By: VALERIA Insulin Glargine (Insulin Glargine,Hum.Rec.Anlog 100 Unit/Ml 10 Ml Vial) 10 unit SUBCUT BEDTIME [facility] Last Admin: 02/11/24 21:03 Dose: 10 unit Documented By: ROSELINE Insulin Human Lispro (Insulin Lispro 100 Unit/Ml 3 Ml Vial) 0 unit SUBCUT QIDACHS [facility]; Protocol Last Admin: 02/12/24 11:39 Dose: 6 unit Documented By: VALERIA Magnesium Hydroxide (Milk Of Magnesia 30 Ml Oral.Susp) 30 ml PO DAILY PRN PRN Reason: Constipation Magnesium Oxide (Magnesium Oxide 400 Mg Tablet) 200 mg PO DAILY [facility] Last Admin: 02/12/24 09:08 Dose: 200 mg Documented By: VALERIA Melatonin (Melatonin 3 Mg Tablet) 6 mg PO BEDTIME PRN PRN Reason: Insomnia Metoprolol Tartrate (Metoprolol Tartrate 50 Mg Tablet) 50 mg PO BID [facility]; Protocol Last Admin: 02/12/24 09:08 Dose: 50 mg Documented By: VALERIA Ondansetron HCl (Ondansetron Hcl 4 Mg/2 Ml Vial) 4 mg IVPUSH Q8H PRN PRN Reason: Nausea and Vomiting Sitagliptin Phosphate (Sitagliptin Phosphate 100 Mg Tablet) 100 mg PO DAILY [facility] Last Admin: 02/12/24 09:09 Dose: 100 mg Documented By: VALERIA Sodium Chloride (0.9 % Sodium Chloride Flush 3 Ml Syringe) 3 ml IVFLUSH QSHIFT [facility] Last Admin: 02/12/24 09:10 Dose: 3 ml Documented By: VALERIA Tiotropium [place] (Tiotropium [place] 2.5 Mcg 1 Puff/2.5 Mcg Mist.Inhal) 2 puff INHALE RDAILY [facility] Last Admin: 02/12/24 08:22 Dose: 2 puff Documented By: AVILA Labs 02/12/24 08:01 02/12/24 08:01 Labs: Laboratory Results - last 24 hr 02/11/24 02/11/24 02/12/24 16:25 20:47 03:00 MCV MCH MCHC RDW Plt Count MPV Absolute Nucleated RBC Nucleated RBC % (auto) Anion Gap Estim Creat Clear Calc Estimated GFR POC Glucose 191 H 212 H 250 H Random Glucose Calcium Magnesium TSH 02/12/24 02/12/24 02/12/24 07:30 08:01 11:07 MCV 80.8 MCH 26.9 L MCHC 33.3 RDW 14.9 Plt Count 238 MPV 10.4 Absolute Nucleated RBC 0.000 Nucleated RBC % (auto) 0.0 Anion Gap 13 Estim Creat Clear Calc 65.7 Estimated GFR > 60 POC Glucose 233 H 270 H Random Glucose 246 H Calcium 8.8 Magnesium 1.7 TSH 1.47 Microbiology Microbiology Results: Microbiology 02/10/24 12:44 Blood Culture - Preliminary Blood - Venous No growth after 24 hours. 02/10/24 12:44 Blood Culture - Preliminary Blood - Venous No growth after 24 hours. Assessment and Plan (1) Hypoxia: Status: Acute Plan 68-year-old female with pertinent history of insulin-dependent diabetes mellitus, mood disorder, hypertension, COPD not on home oxygen, mixed hyperlipidemia who presents to the emergency department for evaluation of fever and diarrhea. new afib rvr Received IV metoprolol, started on p.o. metoprolol and Eliquis overnight. Patient is asymptomatic EKG with PT seems sinus rhythm Monitor tele echo cardiology eval. Sepsis due to acute colitis: Resuscitated with IV crystalloids. Concern for bacterial infection with bandemia. Lactic acid noraml and blood culture pending . c diff neg Gip -ePeC ,Salmonella pcr positive continue ceftriaxone and dc metronidazole. C diff and GI panel pending. Procalcitonin pending Insulin-dependent diabetes mellitus with hyperglycemia: continue adjusted basal plus insulin regimen Hypertension: Continue home antihypertensives Hypomagnesemia due to GI losses: Repleted and moniter . COPD: No exacerbation during admission. Continue home inhaler Mixed hyperlipidemia: On statin DVT prophylaxis: Lovenox Full code hospital stay for IV antibiotics (as above), which is not possible in a lesser acute setting, moniter electrolytes . Id input for salmonalla colitis Quality Stroke Does the patient have a stroke diagnosis?: No VTE Prior VTE?: No VTE Risk Level:: Medical - moderate - high VTE Device Contraindication: Treatment Not Indicated VTE Drug Contraindication: N/A - Med Ordered
[2024-02-12 15:53] LABS: Glucose, Whole Blood 175 mg/dL (60-115)
[2024-02-12] MEDS: Magnesium Sulfate/D5W 1 GM/100 ML PIGGYBACK IV (16:07)
[2024-02-12 20:56] LABS: Glucose, Whole Blood 296 mg/dL (60-115)
[2024-02-12] MEDS: FLUoxetine HCl 20 MG CAPSULE 40 MG PO (21:42)
[2024-02-12] MEDS: Calcium + Vitamin D 250 MG TABLET 500 MG PO (21:43)
[2024-02-12] MEDS: Atorvastatin Calcium 40 MG TABLET PO (21:44)
[2024-02-12] MEDS: Insulin Glargine,Hum.rec.anlog 100 UNIT/ML 10 ML VIAL 10 UNIT SUBCUT (21:45)
[2024-02-13 03:43] VITALS: BP 108/54; PULSE 73; RESP 18; TEMP 36; O2SAT 93
[2024-02-13] MEDS: Fluticasone/Vilanterol 100/25 BLST.W.DEV 1 PUFF INHALE (07:16)
[2024-02-13] MEDS: Tiotropium Bromide 2.5 mcg 1 PUFF/2.5 MCG MIST.INHAL 2 PUFF INHALE (07:16)
[2024-02-13 07:17] VITALS: PULSE 82; RESP 16; O2SAT 92
[2024-02-13 07:31] VITALS: BP 140/63; PULSE 95; RESP 18; TEMP 36.2; O2SAT 93
[2024-02-13 08:05] LABS: Glucose, Whole Blood 205 mg/dL (60-115)
[2024-02-13] MEDS: 0.9 % Sodium Chloride Flush 3 ML SYRINGE IVFLUSH ×3 (08:15→23:57)
[2024-02-13] MEDS: Insulin Lispro 100 UNIT/ML 3 ML VIAL SUBCUT ×4 (08:15→20:56)
[2024-02-13] MEDS: hydrALAZINE HCl 25 MG TABLET PO ×2 (08:16→20:56)
[2024-02-13] MEDS: cilostazoL 50 MG TABLET PO ×2 (08:16→20:56)
[2024-02-13] MEDS: hydrOXYzine HCL 25 MG TABLET PO ×3 (08:16→20:56)
[2024-02-13] MEDS: Magnesium Oxide 400 MG TABLET 200 MG PO (08:16)
[2024-02-13] MEDS: Gabapentin 300 MG CAPSULE PO (08:16)
[2024-02-13] MEDS: Apixaban 5 MG TABLET PO ×2 (08:16→20:56)
[2024-02-13] MEDS: Metoprolol Tartrate 50 MG TABLET PO ×2 (08:16→20:56)
[2024-02-13] MEDS: SITagliptin Phosphate 100 MG TABLET PO (08:16)
[2024-02-13 11:33] LABS: Glucose, Whole Blood 271 mg/dL (60-115)
[2024-02-13] MEDS: cefTRIAXone sodium 1 GM in 0.9 % Sodium Chloride 50 ML IV (11:51)
--- NOTE | 2024-02-13 13:31 | P.PNIM_ITS ---
Subjective Subjective Date of Service: 02/13/24 Interval History: salmonella ,colitis Review of Systems abd pain seems better diarrhae improving Physical Exam 2 Vital Signs: Vital Signs: Last Vital Signs Temp 97.2 F 02/13/24 07:31 Pulse 95 02/13/24 07:31 Resp 18 02/13/24 07:31 BP 140/63 H 02/13/24 07:31 Pulse Ox 93 02/13/24 07:31 O2 Del Method Room Air 02/13/24 07:31 BMI result Body Mass Index 29.8 Appearance: Alert.? Oriented X3.? cvs: rrr, [id number] . res: clear to auscultation ,no rhonchii or wheezing abd: no rebound or guarding ,nt, bs present. ext pulses present , no cyanosis . neuro: axo3 , nonfocal. Objective Data Active Medications Acetaminophen (Acetaminophen 325 Mg Tablet) 650 mg PO Q6H PRN PRN Reason: Pain, Mild (Pain Scale 1-3), fever or headache Apixaban (Apixaban 5 Mg Tablet) 5 mg PO BID [facility] Last Admin: 02/13/24 08:16 Dose: 5 mg Documented By: GLENROY Atorvastatin Calcium (Atorvastatin Calcium 40 Mg Tablet) 40 mg PO BEDTIME [facility] Last Admin: 02/12/24 21:44 Dose: 40 mg Documented By: JOSE ANTONIO Calcium Carbonate (Calcium Carbonate 750 Mg Tab.Chew) 750 mg PO Q4H PRN PRN Reason: Heartburn Calcium Carbonate/Cholecalciferol (Calcium + Vitamin D 250 Mg Tablet) 500 mg PO BEDTIME [facility] Last Admin: 02/12/24 21:43 Dose: 500 mg Documented By: JOSE ANTONIO Cilostazol (Cilostazol 50 Mg Tablet) 50 mg PO BID [facility] Last Admin: 02/13/24 08:16 Dose: 50 mg Documented By: GLENROY Fluoxetine HCl (Fluoxetine Hcl 20 Mg Capsule) 40 mg PO BEDTIME [facility] Last Admin: 02/12/24 21:42 Dose: 40 mg Documented By: JOSE ANTONIO Fluticasone/Vilanterol (Fluticasone/Vilanterol 100/25 Blst.W.Dev) 1 puff INHALE RDAILY [facility] Last Admin: 02/13/24 07:16 Dose: 1 puff Documented By: HO.GUIDIB Gabapentin (Gabapentin 300 Mg Capsule) 300 mg PO DAILY [facility] Last Admin: 02/13/24 08:16 Dose: 300 mg Documented By: GLENROY Glucose (Glucose Gel 15 Gm Gel..Gram.) 15 gm PO Q15M PRN; Protocol PRN Reason: per Hypoglycemia Standing Ord. Hydralazine HCl (Hydralazine Hcl 25 Mg Tablet) 25 mg PO BID [facility]; Protocol Last Admin: 02/13/24 08:16 Dose: 25 mg Documented By: GLENROY Hydroxyzine HCl (Hydroxyzine Hcl 25 Mg Tablet) 25 mg PO TID [facility] Last Admin: 02/13/24 08:16 Dose: 25 mg Documented By: GLENROY Dextrose (D10) 250 mls @ 750 mls/hr IV Q15M PRN; Protocol PRN Reason: per Hypoglycemia Standing Ord. Ceftriaxone Sodium 1 gm/ (Sodium Chloride) 50 mls @ 100 mls/hr IV Q24H [facility] Last Infusion: 02/13/24 12:26 Dose: Infused Documented By: GLENROY Insulin Glargine (Insulin Glargine,Hum.Rec.Anlog 100 Unit/Ml 10 Ml Vial) 10 unit SUBCUT BEDTIME [facility] Last Admin: 02/12/24 21:45 Dose: 10 unit Documented By: JOSE ANTONIO Insulin Human Lispro (Insulin Lispro 100 Unit/Ml 3 Ml Vial) 0 unit SUBCUT QIDACHS [facility]; Protocol Last Admin: 02/13/24 11:52 Dose: 6 unit Documented By: GLENROY Magnesium Hydroxide (Milk Of Magnesia 30 Ml Oral.Susp) 30 ml PO DAILY PRN PRN Reason: Constipation Magnesium Oxide (Magnesium Oxide 400 Mg Tablet) 200 mg PO DAILY [facility] Last Admin: 02/13/24 08:16 Dose: 200 mg Documented By: GLENROY Melatonin (Melatonin 3 Mg Tablet) 6 mg PO BEDTIME PRN PRN Reason: Insomnia Metoprolol Tartrate (Metoprolol Tartrate 50 Mg Tablet) 50 mg PO BID [facility]; Protocol Last Admin: 02/13/24 08:16 Dose: 50 mg Documented By: GLENROY Ondansetron HCl (Ondansetron Hcl 4 Mg/2 Ml Vial) 4 mg IVPUSH Q8H PRN PRN Reason: Nausea and Vomiting Sitagliptin Phosphate (Sitagliptin Phosphate 100 Mg Tablet) 100 mg PO DAILY [facility] Last Admin: 02/13/24 08:16 Dose: 100 mg Documented By: GLENROY Sodium Chloride (0.9 % Sodium Chloride Flush 3 Ml Syringe) 3 ml IVFLUSH QSHIFT [facility] Last Admin: 02/13/24 08:15 Dose: 3 ml Documented By: GLENROY Tiotropium [place] (Tiotropium [place] 2.5 Mcg 1 Puff/2.5 Mcg Mist.Inhal) 2 puff INHALE RDAILY [facility] Last Admin: 02/13/24 07:16 Dose: 2 puff Documented By: AVILA Labs 02/12/24 08:01 02/12/24 08:01 Labs: Laboratory Results - last 24 hr 02/12/24 02/12/24 02/13/24 15:49 20:48 07:18 POC Glucose 175 H 296 H 205 H 02/13/24 11:29 POC Glucose 271 H Microbiology Microbiology Results: Microbiology 02/10/24 12:44 Blood Culture - Preliminary Blood - Venous No growth after 48 hours. 02/10/24 12:44 Blood Culture - Preliminary Blood - Venous No growth after 48 hours. Assessment and Plan (1) Hypoxia: Status: Acute Plan 68-year-old female with pertinent history of insulin-dependent diabetes mellitus, mood disorder, hypertension, COPD not on home oxygen, mixed hyperlipidemia who presents to the emergency department for evaluation of fever and diarrhea. new afib rvr Received IV metoprolol, started on p.o. metoprolol and Eliquis overnight. Patient is asymptomatic EKG with PT seems sinus rhythm Monitor tele echo noted ef in 40% range cardiology eval noted -continue bb/raul/eliquis. Sepsis due to acute colitis: Resuscitated with IV crystalloids. Concern for bacterial infection with bandemia. Lactic acid noraml and blood culture pending . c diff neg Gip -ePeC ,Salmonella pcr positive continue ceftriaxone and dc metronidazole. Id saw patient- Await sensivity Salmonella and type.continue ceftriaxone .asked micro lab to get senstivities /type. Insulin-dependent diabetes mellitus with hyperglycemia: continue adjusted basal plus insulin regimen Hypertension: Continue home antihypertensives Hypomagnesemia due to GI losses: Repleted and moniter . COPD: No exacerbation during admission. Continue home inhaler Mixed hyperlipidemia: On statin DVT prophylaxis: Lovenox Full code hospital stay for IV antibiotics (as above), which is not possible in a lesser acute setting, moniter electrolytes . Id input for salmonalla colitis,Await sensivity Salmonella and type. Quality Stroke Does the patient have a stroke diagnosis?: No VTE Prior VTE?: No VTE Risk Level:: Medical - moderate - high VTE Device Contraindication: Treatment Not Indicated VTE Drug Contraindication: N/A - Med Ordered
--- NOTE | 2024-02-13 13:35 | P.CONCA_ITS ---
History of Present Illness History of Present Illness Date of Service: 02/13/24 Requesting physician: Juana Tanner Consult reason: atrial fibrillation Chief complaint: Diarrhea Narrative: I was consulted to see Tete in cardiology consultation today for new onset atrial fibrillation. Patient is 68-year-old female, with past medical history of mild cardiomyopathy without congestive heart failure, hypertension, diabetes came to the hospital with acute colitis and sepsis religiously to salmonella. Patient then yesterday developed rapid heart rate. Has symptoms of palpitation. Developed atrial fibrillation rapid ventricular response. With with intervention rate control converted to sinus rhythm has remained in sinus rhythm. Patient says symptoms improved. She denies any shortness of breath, orthopnea, PND. No chest pain. She has no prior history of atrial fibrillation. Has prior history of mild cardiomyopathy which has remained unchanged by echocardiogram done yesterday. Patient currently denies any symptoms. Review of Systems 2 Constitutional: Constitutional: Reports no additional constitutional complaints Eyes: Eyes: Reports no additional eye complaints Cardiovascular: Cardiovascular: Denies chest pain, Reports rapid heart rate, Denies lightheadedness, Denies Loss of Consciousness, Reports palpitations and Denies dyspnea Respiratory: Respiratory: Reports no additional respiratory complaints and Denies dyspnea Genitourinary: Genitourinary: Reports no additional female genitourinary complaints Musculoskeletal: Musculoskeletal: Reports no additional musculoskeletal complaints Neurologic: Reports system reviewed and no additional complaints, except as documented Psychiatric: Psychiatric: Reports no additional psychiatric complaints Endocrine: Endocrine: Reports palpitations PMFSH Past Medical History Medical History Salmonella Hypoxemia History of uterine cancer Type 2 diabetes mellitus, with long-term current use of insulin COPD (chronic obstructive pulmonary disease) Smoker PVD (peripheral vascular disease) Osteoporosis Family history of colon cancer Anxiety Dyslipidemia HTN (hypertension) Family History Family History Brother Colon cancer Family history: reviewed and not pertinent Surgical History Surgical History History of lung surgery History of bunionectomy of left great toe History of colonoscopy History of pubovaginal sling History of hysterectomy Social History Social History Household Members: Family Housing: House Alcohol intake: never Patient Tobacco Use Status: Former Tobacco user Tobacco use type: Cigarette Cigarettes Per Day: 15 service: No Meds Allergies Allergy/AdvReac Type Severity Reaction Status Date / Time ciprofloxacin [From CIPRO] Allergy Severe ANAPHYLAXIS Verified 02/10/24 11:23 Active Medications: Current Medications Acetaminophen (Acetaminophen 325 Mg Tablet) 650 mg PO Q6H PRN PRN Reason: Pain, Mild (Pain Scale 1-3), fever or headache Apixaban (Apixaban 5 Mg Tablet) 5 mg PO BID [facility] Last Admin: 02/13/24 08:16 Dose: 5 mg Atorvastatin Calcium (Atorvastatin Calcium 40 Mg Tablet) 40 mg PO BEDTIME [facility] Last Admin: 02/12/24 21:44 Dose: 40 mg Calcium Carbonate (Calcium Carbonate 750 Mg Tab.Chew) 750 mg PO Q4H PRN PRN Reason: Heartburn Calcium Carbonate/Cholecalciferol (Calcium + Vitamin D 250 Mg Tablet) 500 mg PO BEDTIME [facility] Last Admin: 02/12/24 21:43 Dose: 500 mg Cilostazol (Cilostazol 50 Mg Tablet) 50 mg PO BID [facility] Last Admin: 02/13/24 08:16 Dose: 50 mg Fluoxetine HCl (Fluoxetine Hcl 20 Mg Capsule) 40 mg PO BEDTIME [facility] Last Admin: 02/12/24 21:42 Dose: 40 mg Fluticasone/Vilanterol (Fluticasone/Vilanterol 100/25 Blst.W.Dev) 1 puff INHALE RDAILY [facility] Last Admin: 02/13/24 07:16 Dose: 1 puff Gabapentin (Gabapentin 300 Mg Capsule) 300 mg PO DAILY [facility] Last Admin: 02/13/24 08:16 Dose: 300 mg Glucose (Glucose Gel 15 Gm Gel..Gram.) 15 gm PO Q15M PRN; Protocol PRN Reason: per Hypoglycemia Standing Ord. Hydralazine HCl (Hydralazine Hcl 25 Mg Tablet) 25 mg PO BID [facility]; Protocol Last Admin: 02/13/24 08:16 Dose: 25 mg Hydroxyzine HCl (Hydroxyzine Hcl 25 Mg Tablet) 25 mg PO TID [facility] Last Admin: 02/13/24 08:16 Dose: 25 mg Dextrose (D10) 250 mls @ 750 mls/hr IV Q15M PRN; Protocol PRN Reason: per Hypoglycemia Standing Ord. Ceftriaxone Sodium 1 gm/ (Sodium Chloride) 50 mls @ 100 mls/hr IV Q24H [facility] Last Infusion: 02/13/24 12:26 Dose: Infused Insulin Glargine (Insulin Glargine,Hum.Rec.Anlog 100 Unit/Ml 10 Ml Vial) 10 unit SUBCUT BEDTIME [facility] Last Admin: 02/12/24 21:45 Dose: 10 unit Insulin Human Lispro (Insulin Lispro 100 Unit/Ml 3 Ml Vial) 0 unit SUBCUT QIDACHS [facility]; Protocol Last Admin: 02/13/24 11:52 Dose: 6 unit Magnesium Hydroxide (Milk Of Magnesia 30 Ml Oral.Susp) 30 ml PO DAILY PRN PRN Reason: Constipation Magnesium Oxide (Magnesium Oxide 400 Mg Tablet) 200 mg PO DAILY [facility] Last Admin: 02/13/24 08:16 Dose: 200 mg Melatonin (Melatonin 3 Mg Tablet) 6 mg PO BEDTIME PRN PRN Reason: Insomnia Metoprolol Tartrate (Metoprolol Tartrate 50 Mg Tablet) 50 mg PO BID [facility]; Protocol Last Admin: 02/13/24 08:16 Dose: 50 mg Ondansetron HCl (Ondansetron Hcl 4 Mg/2 Ml Vial) 4 mg IVPUSH Q8H PRN PRN Reason: Nausea and Vomiting Sitagliptin Phosphate (Sitagliptin Phosphate 100 Mg Tablet) 100 mg PO DAILY [facility] Last Admin: 02/13/24 08:16 Dose: 100 mg Sodium Chloride (0.9 % Sodium Chloride Flush 3 Ml Syringe) 3 ml IVFLUSH QSHIFT [facility] Last Admin: 02/13/24 08:15 Dose: 3 ml Tiotropium [place] (Tiotropium [place] 2.5 Mcg 1 Puff/2.5 Mcg Mist.Inhal) 2 puff INHALE RDAILY [facility] Last Admin: 02/13/24 07:16 Dose: 2 puff Home Medications ?Medication ?Instructions ?Recorded ?Confirmed ?Last Taken ?Type aspirin 81 mg tablet,delayed 81 mg PO DAILY 08/29/21 02/10/24 02/09/24 History release atorvastatin 40 mg tablet 40 mg PO BEDTIME 08/29/21 02/10/24 02/09/24 History calcium carbonate 600 mg-vitamin 1 tab PO BEDTIME 08/29/21 02/10/24 02/09/24 History D3 10 mcg (400 unit) tablet cilostazol 50 mg tablet 50 mg PO BID 08/29/21 02/10/24 02/09/24 History fluoxetine 40 mg capsule 40 mg PO BEDTIME 08/29/21 02/10/24 02/09/24 History gabapentin 300 mg capsule 300 mg PO DAILY 08/29/21 02/10/24 02/09/24 History hydralazine 25 mg tablet 25 mg PO BID 08/29/21 02/10/24 02/09/24 History hydroxyzine pamoate 25 mg capsule 25 mg PO TID 08/29/21 02/10/24 02/09/24 History insulin syringe-needle U-100 1/2 #10 ea 08/29/21 01/02/23 Unknown History mL 31 gauge x 15/64 (BD Veo Insulin Syringe Ultra-Fine) lisinopril 40 mg tablet 40 mg PO DAILY 08/29/21 02/10/24 02/09/24 History metformin 1,000 mg tablet 1,000 mg PO BID 08/29/21 02/10/24 02/09/24 History fluticasone 250 mcg-salmeterol 50 1 inh inhalation BID 05/14/23 02/10/24 02/09/24 History mcg/dose blistr powdr for inhalation umeclidinium 62.5 mcg/actuation 1 inh inhalation DAILY 05/14/23 02/10/24 02/09/24 History blister powder for inhalation (Incruse Ellipta) insulin glargine 100 unit/mL 15 unit subcut BEDTIME 12/02/23 02/10/24 02/09/24 History subcutaneous solution (Lantus U-100 Insulin) sitagliptin phosphate 100 mg 100 mg PO DAILY 12/02/23 02/10/24 02/09/24 History tablet (Januvia) magnesium 200 mg tablet 200 mg PO DAILY 02/10/24 02/10/24 02/09/24 History metoprolol tartrate 50 mg tablet 50 mg PO BID 02/10/24 02/10/24 02/09/24 History Physical Exam 2 Vital Signs: Vital Signs: Last Vital Signs Temp 97.2 F 02/13/24 07:31 Pulse 95 02/13/24 07:31 Resp 18 02/13/24 07:31 BP 140/63 H 02/13/24 07:31 Pulse Ox 93 02/13/24 07:31 O2 Del Method Room Air 02/13/24 07:31 BMI result Body Mass Index 29.8 Const: General: cooperative, comfortable, no acute distress, alert and awake Nutritional Appearance: overweight Orientation/consciousness: patient oriented x3 HEENT: Head: Yes normocephalic and Yes atraumatic Neck: Neck: Yes trachea midline, Yes supple and Yes no JVD Resp: Effort & Inspection: decreased respiratory effort Auscultation: clear to auscultation bilaterally Cardio: Jugular venous distension: no JVD Palpation: normal PMI Rate: r egular rate Rhythm: regular rhythm Heart sounds: S1 normal heart sound present, S2 normal heart sound present, no click, no gallops and no murmurs GI: Auscultation: normal bowel sounds Skin: General skin exam: no rashes or lesions noted Neuro: General: patient oriented x3 and no focal motor deficits Extrem: General: Yes no clubbing, cyanosis or edema Objective Labs and Meds 02/12/24 08:01 02/12/24 08:01 Lab results: Laboratory Results - last 24 hr 02/12/24 02/12/24 02/13/24 15:49 20:48 07:18 POC Glucose 175 H 296 H 205 H 02/13/24 11:29 POC Glucose 271 H Assessment and Plan (1) Paroxysmal atrial fibrillation: Status: Acute Paroxysmal atrial fibrillation in this elderly woman with multiple risk factors and [id number] LV systolic dysfunction. No clinical signs of heart failure. She was symptomatic. Will continue with metoprolol therapy for now. CHADSVASc score of 5. Agree with oral anticoagulation therapy. Stop aspirin therapy to reduce bleeding risk. (2) Cardiomyopathy: Status: Acute Mild cardiomyopathy without any overt signs of congestive heart failure. Continue current neurohormonal modulation with lisinopril as well as metoprolol therapy. Also hydralazine therapy for blood pressure. Continue the same. No need for additional diuretic therapy at this point time. Will sign of the case. 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 Procedures Date of Service Date of Service: 02/13/24
[2024-02-13 15:50] VITALS: BP 129/60; PULSE 93; RESP 18; TEMP 36.8; O2SAT 95
[2024-02-13 16:18] LABS: Glucose, Whole Blood 226 mg/dL (60-115)
[2024-02-13 20:00] VITALS: BP 122/59; PULSE 93; RESP 18; TEMP 37.1; O2SAT 93
[2024-02-13 20:47] LABS: Glucose, Whole Blood 288 mg/dL (60-115)
[2024-02-13] MEDS: FLUoxetine HCl 20 MG CAPSULE 40 MG PO (20:56)
[2024-02-13] MEDS: Calcium + Vitamin D 250 MG TABLET 500 MG PO (20:56)
[2024-02-13] MEDS: Atorvastatin Calcium 40 MG TABLET PO (20:56)
[2024-02-13] MEDS: Insulin Glargine,Hum.rec.anlog 100 UNIT/ML 10 ML VIAL 10 UNIT SUBCUT (20:57)
[2024-02-14 04:00] VITALS: BP 115/58; PULSE 90; RESP 18; TEMP 36.1; O2SAT 92
[2024-02-14 07:29] VITALS: BP 139/62; PULSE 78; RESP 18; TEMP 36.5; O2SAT 94
[2024-02-14] MEDS: Magnesium Oxide 400 MG TABLET 200 MG PO (07:48)
[2024-02-14] MEDS: hydrOXYzine HCL 25 MG TABLET PO (07:48)
[2024-02-14] MEDS: hydrALAZINE HCl 25 MG TABLET PO (07:48)
[2024-02-14] MEDS: SITagliptin Phosphate 100 MG TABLET PO (07:48)
[2024-02-14] MEDS: Apixaban 5 MG TABLET PO (07:48)
[2024-02-14] MEDS: cilostazoL 50 MG TABLET PO (07:48)
[2024-02-14] MEDS: Gabapentin 300 MG CAPSULE PO (07:48)
[2024-02-14] MEDS: Metoprolol Tartrate 50 MG TABLET PO (07:48)
[2024-02-14] MEDS: Insulin Lispro 100 UNIT/ML 3 ML VIAL SUBCUT ×2 (07:52→11:32)
[2024-02-14] MEDS: Tiotropium Bromide 2.5 mcg 1 PUFF/2.5 MCG MIST.INHAL 2 PUFF INHALE (07:54)
[2024-02-14] MEDS: 0.9 % Sodium Chloride Flush 3 ML SYRINGE IVFLUSH (07:54)
[2024-02-14] MEDS: Fluticasone/Vilanterol 100/25 BLST.W.DEV 1 PUFF INHALE (07:54)
[2024-02-14 07:55] VITALS: PULSE 71; RESP 16; O2SAT 94
[2024-02-14] MEDS: lisinopriL 2.5 MG TABLET PO (08:00)
[2024-02-14 08:24] LABS: Glucose, Whole Blood 240 mg/dL (60-115)
[2024-02-14 11:22] LABS: Glucose, Whole Blood 297 mg/dL (60-115)
[2024-02-14] MEDS: cefTRIAXone sodium 1 GM in 0.9 % Sodium Chloride 50 ML IV (11:39)
--- NOTE | 2024-02-14 13:02 | MHC.CM.PN ---
Second IMM 02/14/24, pt has been medically cleared for DC, she will go home via family transport, plan is self care.
--- NOTE | 2024-02-14 13:51 | P.DS_ITS ---
DS: Providers Provider Date of Service: 02/14/24 Date of admission: 02/10/24 14:30 Date of discharge: 02/14/24 Primary care physician: DEMETRICE Rodgers Consults: 02/11/24 10:34 Consult to Infectious Diseases Routine Consulting Provider: [facility] Reason for consultation: Salmonella /colitis Has provider been notified: No 02/12/24 10:54 Consult to Cardiology Routine Consulting Provider: [facility] Reason for consultation: new afib Has provider been notified: No Attending physician on discharge: Juana Tanner Discharging clinician: Juana Tanner DS: Diagnosis Discharge Diagnosis (1) Paroxysmal atrial fibrillation: Status: Acute (2) Cardiomyopathy: Status: Acute DS: Summary Hospital Course Hospital Course: 68-year-old female with pertinent history of insulin-dependent diabetes mellitus, mood disorder, hypertension, COPD not on home oxygen, mixed hyperlipidemia who presents to the emergency department for evaluation of fever and diarrhea. History was obtained with the help of patient's daughter. Patient has been having symptoms since the last 2 days. She has been having multiple episodes of loose stools, nonbloody. Also has been having fevers and chills. Patient's daughter also has been having loose stools. One more sick contact in the family with loose stools. No nausea, vomiting, chest discomfort, palpitations, shortness of breath, abdominal pain, changes in urinary or bowel habits. Does endorse malaise and fatigability. In the emergency department, imaging with colitis. 31% bandemia present. Patient was given IV fluids and given empiric IV ceftriaxone. hospital course: Patient came to the hospital because of abdominal pain, diarrhea-further workup including stool study for C diff, GI P panel done-came positive salmonella, the test was sent for type and sensitivity to [facility](salmonella type and sensitivity): Patient is already on ceftriaxone for 3-4 days. Discussed with the ID: Patient will need total 14 days of antibiotics, will add Ceftin 500 mg p.o. b.i.d. for 12 more days since patient already got ceftriaxone for few days the hospital. Patient is to follow-up salmonella sensitivity results out patiently with PCP. EPEC needs no treatment. DPH may interview patient and family. new onset afib-improved -continue metoprolol/eliquis. plan: Plan as above-please completeCeftin 500 mg p.o. b.i.d. for 12 more days. Started on Eliquis 5 mg p.o. b.i.d. for stroke prevention as has new AFib. Patient and her family are aware to follow-up with PCP and in agreement(follow- up with PCP-results of sign melena sensitivity/type), dsicussed with ID in detail. Assessment and plan coordination time spent 40 minute, patient understand and as well as her family and in agreement with the above plan. Time Attestation Total time managing care of this patient today: 40 mintues. Discharge Coordination Time (in mins): 40 min Quality: Safe Use of Opioids Does Pt have an Active Cancer Diagnosis on the Problem List?: No Quality: Stroke Does the patient have a stroke diagnosis?: No Physical Exam Vital Signs: Vital Signs: Last Vital Signs Temp 97.7 F 02/14/24 07:29 Pulse 71 02/14/24 07:55 Resp 16 02/14/24 07:55 BP 139/62 02/14/24 07:29 Pulse Ox 94 02/14/24 07:29 O2 Del Method Room Air 02/14/24 07:29 BMI result Body Mass Index 29.8 Appearance: Alert.? Oriented X3.? . cvs: rrr, [id number] , no murmur res: clear to auscultation ,no rhonchii or wheezing abd: no rebound or guarding ,nt, bs present. ext pulses present , no cyanosis . neuro: axo3 , nonfocal. DS: Data Data Completed and Pending Labs on day of discharge: Laboratory Results - last 24 hr 02/13/24 02/13/24 02/14/24 16:02 20:34 07:32 POC Glucose 226 H 288 H 240 H 02/14/24 11:18 POC Glucose 297 H Preliminary micro results at discharge 02/10/24 12:44 Blood Culture - Preliminary Blood - Venous No growth after 48 hours. 02/10/24 12:44 Blood Culture - Preliminary Blood - Venous No growth after 48 hours. Imaging Chest x-ray: Radiologist's impression: ITS Impressions Chest X-Ray 02/10/24 11:58 IMPRESSION: Persistent left basilar opacity/consolidation. Persistent blunting of the left costophrenic angle may represent small pleural effusion and/or pleural thickening. Increased volume loss in the left hemithorax. This study was presented today February 10, 2024 for interpretation. Stat results provided at this time as requested by referring provider. Abdomen/Pelvis CT 02/10/24 13:39 IMPRESSION: CT angiography chest: 1. CT pulmonary angiogram negative for pulmonary emboli. 2. Trace left pleural effusion. 3. Centrilobular emphysema. 4. Mild-moderate coronary artery calcific atherosclerosis. CT ABDOMEN AND PELVIS: 1. Moderate acute colitis involving the ascending colon and cecum. No free intraperitoneal fluid or gas collections. Normal appearance of the terminal ileum. Normal appendix. Findings are characterized by segmental, concentric mucosal thickening of the cecum and ascending colon. Findings may represent infectious colitis. 2. Moderate colonic diverticulosis. VTE: Negative. Chest CTA 02/10/24 13:39 IMPRESSION: CT angiography chest: 1. CT pulmonary angiogram negative for pulmonary emboli. 2. Trace left pleural effusion. 3. Centrilobular emphysema. 4. Mild-moderate coronary artery calcific atherosclerosis. CT ABDOMEN AND PELVIS: 1. Moderate acute colitis involving the ascending colon and cecum. No free intraperitoneal fluid or gas collections. Normal appearance of the terminal ileum. Normal appendix. Findings are characterized by segmental, concentric mucosal thickening of the cecum and ascending colon. Findings may represent infectious colitis. 2. Moderate colonic diverticulosis. VTE: Negative. Discharge Plan Discharge Anticipated Discharge Date/Time: 02/14/24 11:40 Patient Disposition: Home, Self-Care Discharge Diagnosis: salmonella colitis Referrals: Anabelle Obrien FNP [Primary Care Provider] - 1 Week Discharge Medications: New cefuroxime axetil 500 mg tablet 500 mg PO BID Qty: 24 0RF Eliquis 5 mg Tablet 5 mg PO BID Qty: 180 0RF omeprazole 20 mg capsule,delayed release(DR/EC) 20 mg PO DAILY Qty: 30 0RF Continued metoprolol tartrate 50 mg tablet 50 mg PO BID magnesium 200 mg Tablet 200 mg PO DAILY (DME) insulin syringe-needle U-100 [BD Veo Insulin Syringe UF] 1/2 mL 31 gauge x 15/64 syringe See Rx Instructions .ROUTE .MEDSUPPLY Qty: 10 Rx Instructions: As directed calcium carbonate-vitamin D3 600 mg-10 mcg (400 unit) tablet 1 tab PO BEDTIME hydroxyzine pamoate 25 mg capsule 25 mg PO TID lisinopril 40 mg tablet 40 mg PO DAILY gabapentin 300 mg capsule 300 mg PO DAILY hydralazine 25 mg tablet 25 mg PO BID metformin 1,000 mg tablet 1,000 mg PO BID cilostazol 50 mg tablet 50 mg PO BID atorvastatin 40 mg tablet 40 mg PO BEDTIME fluoxetine 40 mg capsule 40 mg PO BEDTIME Lantus U-100 Insulin 100 unit/mL solution 15 unit subcut BEDTIME albuterol sulfate 90 mcg/actuation HFA aerosol inhaler 2 puff inhalation Q4-6H PRN (Reason: shortness of breath or wheezing) 30 Days Qty: 8.5 3RF Incruse Ellipta 62.5 mcg/actuation blister with device 1 inh inhalation DAILY fluticasone propion-salmeterol 250-50 mcg/dose blister with device 1 inh inhalation BID Januvia 100 mg tablet 100 mg PO DAILY Discontinued aspirin 81 mg tablet,delayed release (DR/EC) 81 mg PO DAILY Discharge Orders: Discharge Order (Routine); Ordered 02/14/24 Ordered By: Juana Tanner Diet: Advance to usual diet Activity on Discharge: As tolerated Stand Alone Forms: Patient Portal Discharge page Print Language: Nepali Care Plan Goals: Patient came to the hospital because of abdominal pain, diarrhea-further workup including stool study for C diff, GI P panel done-came positive salmonella, the test was sent for type and sensitivity to [facility](salmonella type and sensitivity): Patient is already on ceftriaxone for 3-4 days. Discussed with the ID: Patient will need total 14 days of antibiotics, will add Ceftin 500 mg p.o. b.i.d. for 12 more days since patient already got ceftriaxone for few days the hospital. Patient is to follow-up salmonella sensitivity results out patiently with PCP. EPEC needs no treatment. DP may interview patient and family. new onset afib-improved -continue metoprolol/eliquis. Stop aspirin since Eliquis started. Health Concerns: As above. Plan of Treatment: As above. Assessment: As above.
--- NOTE | 2024-02-23 18:47 | P.CDIM_ITS ---
PROVIDER RESPONSE TEXT: To clarify, the appropriate diagnosis supported by the clinical indicators: Sepsis is/was present on admission and is a clinical diagnosis QUERY TEXT: >>> Provider Instructions - Do not remove this line >>> PHYSICIAN'S DOCUMENTATION REQUEST Date of Query: 02/18/2024 12:24 PM EDT Patient Name: Tete Ayon Admit Date: 02/10/2024 Dear Juana Tanner MD, A review of the medical record indicates additional documentation may be needed. Please review below and update the documentation accordingly. Documentation on the H&P note dated 02/10/24 included the diagnosis of Sepsis. The patient's infectious clinical indicators include: Sepsis due to acute colitis: Resuscitated with IV crystalloids. Concern for bacterial infection with bandemia, 31% empiric IV Ceftriaxone P 118 WBC 9.0 LA 1.2 Sepsis is not noted on the Discharge Summary 02/14/24 Based on the above information and the recognized standard for sepsis, could you please clarify if th is diagnoses is still accurate and reflective of the patient's condition to ensure quality of the medical record. <<< Provider Instructions - Do not remove this line <<< Sepsis is/was present on admission and is a clinical diagnosis After study, Sepsis has been ruled out Other (explain) Clinically unable to determine (explain) >>> Contact Info - Do not remove this line>>> Thank you, Mandy Acosta RN Use of terms such as suspected, likely, concern for, or probable (associated with a specific diagnosi s that is being evaluated, monitored, or treated as if it exists) are acceptable and can be coded in the inpatient se tting, when documented at the time of discharge. Please use your independent medical judgment in providing your response. THIS QUERY IS PART OF THE PERMANENT MEDICAL RECORD <<< Contact Info - Do not remove this line <<< >>> Disclaimer - Do no remove this line>>> Extension: [phone] <<< Disclaimer - Do not remove this line<<<
== END 2024-02-14 14:53 | disposition home or self-care (01) | DRG 872 ==
LOC: HO.ED 11:58 → HO.EDOVER 14:35 → HO.S3 16:01 → HO.IMC 02-12 04:47
PROVIDERS: Internal Medicine; Physician Assistant; Physician Assistant Medical; Admitting Provider Student in an Organized Health Care Education/Training Program; Emergency Provider Emergency Medicine; PCP Registered Nurse; Visit Provider Internal Medicine
DX: A41.9 Sepsis, unspecified organism (principal); A02.0 Salmonella enteritis; I42.9 Cardiomyopathy, unspecified; E78.2 Mixed hyperlipidemia; E11.65 Type 2 diabetes mellitus with hyperglycemia; E83.42 Hypomagnesemia; J44.9 Chronic obstructive pulmonary disease, unspecified; Z87.891 Personal history of nicotine dependence; Z79.01 Long term (current) use of anticoagulants; Z79.4 Long term (current) use of insulin; Z79.51 Long term (current) use of inhaled steroids; Z79.84 Long term (current) use of oral hypoglycemic drugs; Z79.899 Other long term (current) drug therapy; I48.0 Paroxysmal atrial fibrillation
CPT/HCPCS: 0241U; 36415; 71045; 71275; 74177; 80048; 80076; 81003; 82947; 83605; 83735; 83880; 84145; 84443; 84484; 85007; 85027; 85610; 86331; 87040; 87493; 87507; 87633; 87651; 93005; 93306; 94640; 99285; J0696; J1650; J1836; J3475; J7120; Q9967

== ENCOUNTER → 2024-02-10 11:24 | Outpatient (BNV) | payer OTHER, SELFPAY | PROVIDERS: Admitting Provider Student in an Organized Health Care Education/Training Program; Emergency Provider Emergency Medicine; PCP Registered Nurse; Visit Provider Internal Medicine Cardiovascular Disease | DX: R94.31 Abnormal electrocardiogram [ECG] [EKG] (principal) | CPT/HCPCS: 93010 ==

== ENCOUNTER 2024-02-10 14:30 | Outpatient (BNV) | payer OTHER, SELFPAY | END 2024-02-12 02:09 | PROVIDERS: Admitting Provider Student in an Organized Health Care Education/Training Program; Emergency Provider Emergency Medicine; PCP Registered Nurse; Visit Provider Internal Medicine Cardiovascular Disease | DX: R94.31 Abnormal electrocardiogram [ECG] [EKG] (principal) | CPT/HCPCS: 93010; 93306 ==

== ENCOUNTER → 2024-02-10 14:30 | Outpatient (BNV) | payer OTHER, SELFPAY | PROVIDERS: Admitting Provider Student in an Organized Health Care Education/Training Program; Emergency Provider Emergency Medicine; PCP Registered Nurse; Visit Provider Internal Medicine | DX: D72.825 Bandemia (principal); K52.9 Noninfective gastroenteritis and colitis, unspecified; A02.9 Salmonella infection, unspecified | CPT/HCPCS: 99222 ==

== ENCOUNTER → 2024-02-10 14:30 | Outpatient (BNV) | payer OTHER, SELFPAY | PROVIDERS: Admitting Provider Student in an Organized Health Care Education/Training Program; Emergency Provider Emergency Medicine; PCP Registered Nurse; Visit Provider Internal Medicine Cardiovascular Disease | DX: I48.0 Paroxysmal atrial fibrillation (principal); I42.9 Cardiomyopathy, unspecified | CPT/HCPCS: 99222 ==

== ENCOUNTER → 2024-02-10 14:30 | Outpatient (BNV) | payer OTHER, SELFPAY | PROVIDERS: Admitting Provider Student in an Organized Health Care Education/Training Program; Emergency Provider Emergency Medicine; PCP Registered Nurse; Visit Provider Student in an Organized Health Care Education/Training Program | DX: I48.0 Paroxysmal atrial fibrillation (principal); I42.9 Cardiomyopathy, unspecified | CPT/HCPCS: 99223; 99231; 99239; 99499 ==

== ENCOUNTER 2024-03-04 15:56 | Outpatient (REF) | payer OTHER, SELFPAY ==
[2024-03-04 16:10] LABS: MANUAL DIFF FLAG NO
[2024-03-04 17:02] LABS: Basophils Percent Auto 0.4 % (0-2); Eosinophils Absolute Auto 0.2 X10*3/uL (0.0-0.4); Eosinophils Percent Auto 1.8 % (0-4); Hematocrit 35.9 % (37.0-47.0); Hemoglobin 11.2 g/dl (12.0-16.0); Imm Gran Abs Auto 0.05 X10*3/uL (0.00-0.03); Imm Gran Pct Auto 0.5 % (0.0-0.4); Lymphocytes Absolute Auto 2.1 X10*3/uL (1.2-4.9); Lymphocytes Percent Auto 20.8 % (20-40); Mean Corpuscular HGB Conc 31.2 g/dl (31.0-35.0); Mean Corpuscular Volume 83.5 fL (80.0-98.0); Mean Platelet Volume 11.3 fL (9.4-12.3); Monocytes Absolute Auto 0.7 X10*3/uL (0.1-1.2); Neutrophils Absolute Auto 6.9 x10*3/uL (2.0-8.3); Neutrophils Percent Auto 69.5 % (45-73); Platelet Count 282 X10*3/uL (160-400); Red Cell Distribution Width 15.6 % (11.0-16.0); White Blood Count 9.9 X10*3/uL (4.8-10.8)
[2024-03-04 17:12] LABS: INTERNATIONAL NORM RATIO 1.1 (0.9-1.1); Prothrombin Time 13.1 SEC (11.1-13.3)
[2024-03-04 17:15] LABS: Partial Thromboplastin Time 34.2 SEC (26.0-36.8)
[2024-03-04 17:30] LABS: Anion Gap 16 (12-20); Blood Urea Nitrogen 14 mg/dL (9-16); Calcium 9.6 mg/dL (8.4-10.2); Carbon Dioxide 26 mmol/L (22-29); Chloride 100 mmol/L (96-108); Estimated Glomerular Filt Rate 55; Glucose Random 311 mg/dL (60-115); Potassium 4.9 mmol/L (3.3-5.1); Sodium 137 mmol/L (135-145)
== END 2024-03-04 15:57 | disposition home or self-care (01) ==
LOC: HO.LAB 15:56
PROVIDERS: PCP Registered Nurse; Referring Provider Registered Nurse; Visit Provider Internal Medicine Cardiovascular Disease
DX: I48.91 Unspecified atrial fibrillation (principal)
CPT/HCPCS: 36415; 80048; 85025; 85610; 85730

== ENCOUNTER 2024-03-15 13:41 | Outpatient (AMB) | payer OTHER, SELFPAY ==
[2024-03-15 13:44] VITALS: BP 151/66; PULSE 77; BMI 31.1
--- NOTE | 2024-03-15 13:44 | A.OFFVIS_ITS ---
Vital Signs 03/15/24 13:44 Height 5 ft 4 in Weight 181 lb BMI 31.1 BP 151/66 H Blood Pressure Location Lt brachial Position Sitting Pulse 77 Intake Visit Reasons: Skin lesion neck Intake Note: Patient new consult for skin lession neck Patient cc: mass on her emperatriz neck with daily discomfort on her left side of head Wood Getter Required: Yes Accompanied by: Daughter Allergies ciprofloxacin [From CIPRO] Allergy (Severe, Verified 03/15/24 13:45) ANAPHYLAXIS Medication List - Last Reconciled 03/16/24 by Kd Witt MD albuterol sulfate 90 mcg/actuation 2 puffs inhalation Q4-6H PRN 30 days apixaban (Eliquis) 5 mg PO BID atorvastatin 40 mg PO BEDTIME calcium carbonate-vitamin D3 600 mg-10 mcg (400 unit) 1 tab PO BEDTIME cefuroxime axetil 500 mg PO BID cilostazol 50 mg PO BID fluoxetine 40 mg PO BEDTIME fluticasone propion-salmeterol 250-50 mcg/dose 1 inh inhalation BID gabapentin 300 mg PO DAILY hydralazine 25 mg PO BID hydroxyzine pamoate 25 mg PO TID insulin glargine (Lantus U-100 Insulin) 15 units subcut BEDTIME insulin syringe-needle U-100 (BD Veo Insulin Syringe Ultra-Fine) As directed lisinopril 40 mg PO DAILY magnesium 200 mg PO DAILY metformin 1,000 mg PO BID metoprolol tartrate 50 mg PO BID omeprazole 20 mg PO DAILY sitagliptin phosphate (Januvia) 100 mg PO DAILY umeclidinium 62.5 mcg/actuation (Incruse Ellipta) 1 inh inhalation DAILY HPI Comments Details: Patient presents with her daughter. She has a protruding growth of the posterior aspect of her neck. Apparently this was excised and the patient's youth and after many years has now recurred. She would like to have it removed. She has no such lesions elsewhere. Chart was reviewed and patient evaluated [facility] Medical History Salmonella Hypoxemia History of uterine cancer Type 2 diabetes mellitus, with long-term current use of insulin COPD (chronic obstructive pulmonary disease) Smoker PVD (peripheral vascular disease) Osteoporosis Family history of colon cancer Anxiety Dyslipidemia HTN (hypertension) Surgical History History of lung surgery History of bunionectomy of left great toe History of colonoscopy History of pubovaginal sling History of hysterectomy Family History Brother Colon cancer Social History Household Members: Family Housing: House Alcohol intake: never Patient Tobacco Use Status: Former Tobacco user Tobacco use type: Cigarette Cigarettes Per Day: 15 service: No Physical Exam Vital Signs: Last Vital Signs Pulse 77 03/15/24 13:44 BP 151/66 H 03/15/24 13:44 BMI result Body Mass Index 31.1 Neck Other: Patient has a polypoid type growth of the posterior neck measuring approximately 2 x 1 cm.. Patient has also a proximally 4 x 3 cm posterior deeply situated sebaceous cyst. Office Procedures Excision [id number] scalp/neck/hands/feet/genitalia 0.6cm-1cm Details: Risks, benefits, alternatives of excision of posterior neck skin growth were reviewed with the patient and included but not limited to bleeding, Patient after appropriate positioning 1 underwent 1% lidocaine Betadine prep and tangential excision of the lesion. Specimen sent to pathology. This measured approximately 1 by 2 cm. Wound base cauterized with silver nitrate followed by sterile dressing. Patient tolerated procedure well. Procedure code (CPT) selection complete Office Meds lidocaine 1 %-epinephrine 1:100,000 injection solution Performing Provider: Kd Witt MD [place] [facility] [place] [facility] Administered by: Kd Witt MD on 03/16/24 08:26 Dose Route Admin Location Dispensed Lot Number Expiration Date [facility] Assistant 10 mL Infiltration 10 mL Assessment & Plan Assessment & Plan (1) Abnormal skin growth: Code(s): D49.2 - Neoplasm of unspecified behavior of bone, soft tissue, and skin Category: Surgical Plan: Patient and her daughter have been given local instructions, patient will see me as directed or p.r.n.. All questions answered. The posterior neck sebaceous cyst will be addressed at a later date. (2) Sebaceous cyst: Code(s): L72.3 - Sebaceous cyst Category: Surgical Plan See above Orders: Orders Surgical 03/15/24 L98.9 - Disorder of the skin and subcutaneous tissue, unspecified AMB Excision 03/15/24 D49.2 - Neoplasm of unspecified behavior of bone, soft tissue, and skin Medications: New lidocaine-epinephrine 1 %-1:100,000 10 mL Infiltration ONCE 30 mL 0RF D49.2 - Neoplasm of unspecified behavior of bone, soft tissue, and skin Coding Level of Care Code New Pt Level 5 (34720) Diagnoses Abnormal skin growth D49.2 Sebaceous cyst L72.3 CPT Codes Scalp/Neck/Hands/Feet/Genetalia - CPT: 42665-Dlonjuvr scalp/neck/hands/feet/genitalia 0.6cm-1cm ([id number])
== END 2024-03-15 14:04 | disposition home or self-care (01) ==
PROVIDERS: PCP Registered Nurse; Visit Provider Surgery
DX: L72.3 Sebaceous cyst (principal); D49.2 Neoplasm of unspecified behavior of bone, soft tissue, and skin
CPT/HCPCS: 11421; 99204

== ENCOUNTER 2024-03-15 13:41 | Outpatient (REF) | payer OTHER, SELFPAY | END 2024-03-15 13:42 | disposition home or self-care (01) | LOC: HO.LNP 13:41 | PROVIDERS: PCP Registered Nurse; Visit Provider Surgery | DX: D49.2 Neoplasm of unspecified behavior of bone, soft tissue, and skin (principal); L72.3 Sebaceous cyst | CPT/HCPCS: 11421; 88304; 88305; 88342; 99202 ==

== ENCOUNTER 2024-03-17 15:59 | Outpatient (AMB) | payer OTHER, SELFPAY ==
[2024-03-17 16:05] VITALS: BP 122/64; PULSE 79; O2SAT 94; BMI 31.0
--- NOTE | 2024-03-17 16:05 | MHC.OFFVIS ---
Vital Signs 03/17/24 16:05 Height 5 ft 4 in Weight 180 lb 12.465 oz BMI 31.0 BP 122/64 Blood Pressure Location Lt brachial Position Sitting Pulse 79 Pulse Source Pulse Oximeter Pulse Oximetry (%) 94 Oxygen Delivery Method Room Air Intake Visit Reasons: copd Intake Note: pt is here for follow and she states she does have a cough and some short of breath with stairs Vacuum Form Operator Required: No Allergies ciprofloxacin [From CIPRO] Allergy (Severe, Verified 03/17/24 16:19) ANAPHYLAXIS Medication List - Last Reconciled 03/17/24 by Naomi Floyd MD albuterol sulfate 90 mcg/actuation 2 puffs inhalation Q4-6H PRN 30 days apixaban (Eliquis) 5 mg PO BID atorvastatin 40 mg PO BEDTIME calcium carbonate-vitamin D3 600 mg-10 mcg (400 unit) 1 tab PO BEDTIME cilostazol 50 mg PO BID fluoxetine 40 mg PO BEDTIME fluticasone propion-salmeterol 250-50 mcg/dose 1 inh inhalation BID gabapentin 300 mg PO DAILY hydralazine 25 mg PO BID hydroxyzine pamoate 25 mg PO TID insulin glargine (Lantus U-100 Insulin) 15 units subcut BEDTIME insulin syringe-needle U-100 (BD Veo Insulin Syringe Ultra-Fine) As directed lisinopril 40 mg PO DAILY magnesium 200 mg PO DAILY metformin 1,000 mg PO BID metoprolol tartrate 50 mg PO BID omeprazole 20 mg PO DAILY sitagliptin phosphate (Januvia) 100 mg PO DAILY umeclidinium 62.5 mcg/actuation (Incruse Ellipta) 1 inh inhalation DAILY Do you need a note to return to daycare/school/sports/work: No HPI HPI copd: Details: This 68 years old female, Icelandic-speaking, comes along with her daughter, after 4 months for pulmonary follow-up. In February she was admitted to hospital with acute exacerbation of COPD due to pneumonia. After discharge home she has been doing well and back at her baseline condition. She does not smoke anymore. Uses Advair 250-50 b.i.d. and Incruse Ellipta once a day. She hardly needs to use the emergency inhaler. She is not using oxygen anymore . She has only occasional cough without much expectoration . [facility] Medical History Salmonella Hypoxemia History of uterine cancer Type 2 diabetes mellitus, with long-term current use of insulin COPD (chronic obstructive pulmonary disease) Smoker PVD (peripheral vascular disease) Osteoporosis Family history of colon cancer Anxiety Dyslipidemia HTN (hypertension) Surgical History History of lung surgery History of bunionectomy of left great toe History of colonoscopy History of pubovaginal sling History of hysterectomy Family History Brother Colon cancer Social History Household Members: Family Housing: House Alcohol intake: never Patient Tobacco Use Status: Former Tobacco user Tobacco use type: Cigarette Cigarettes Per Day: 15 service: No Review of Systems Const All systems reviewed & are unremarkable except as noted in HPI and below Eyes Reports no additional complaints ENT Reports no additional complaints Card Denies chest pain, Denies irregular heart rhythm and Denies leg edema Resp Reports as per HPI GI Reports heartburn (GERD symptoms controlled with omeprazole) Reports no additional complaints Musc Reports no additional complaints Skin/Breast Reports system reviewed and no additional complaints, except as documented Neuro Reports no additional complaints Psych Reports depression (Controlled with medicine) Physical Exam Vital Signs: Last Vital Signs Pulse 79 03/17/24 16:05 BP 122/64 03/17/24 16:05 Pulse Ox 94 03/17/24 16:05 Oxygen Delivery Method Room Air 03/17/24 16:05 BMI result Body Mass Index 31.0 Const General: comfortable, no acute distress, alert and awake Orientation/consciousness: patient oriented x3 HEENT Head: Yes normal to inspection General nose exam: No nasal polyps present and No nasal discharge present Face and sinus: Yes sinuses nontender Mouth: oropharynx normal Throat: Yes posterior oropharynx normal Eyes General: appearance normal, both eyes and all related structures Neck Neck: Yes normal visual inspection, Yes no lymphadenopathy, Yes trachea midline and Yes no JVD Thyroid: Thyroid normal Chest Chest palpation & inspection: normal inspection of the chest (Except that she has, small surgical scars from thoracostomy over left lower), normal palpation of entire chest wall and no tenderness Resp Other: Percussion note hyper-resonant, breath sounds are distant with prolonged expiratory phase. No wheezes or rhonchi are heard today. Left lower chest is also well aerated Cardio Palpation: normal PMI Rate: regular rate Rhythm: regular rhythm Heart sounds: no gallops and no murmurs GI Palpation (GI): Soft to palpation, nontender, No hepatosplenomegaly present and no masses Auscultation: normal bowel sounds Back/Spine/Pelvis Thoracic/Lumbar Spine: thoracic and lumbar spine normal to inspection Skin General skin exam: no rashes or lesions noted Neuro General: patient oriented x3 and no focal motor deficits Cranial nerves: Yes CN's II-XII intact bilaterally Extrem General: Yes normal to inspection, Yes no clubbing, cyanosis or edema and Yes no calf tenderness Psych Appearance: grossly normal and well kempt Speech and movement: Normal speech and movement present Results Reviewed Results Reviewed: CTA of the chest performed during her recent hospitalization, was negative for pulmonary emboli. She did have pulmonary emphysema. There is no residual pulmonary mass or nodule Assessment & Plan Assessment & Plan (1) COPD (chronic obstructive pulmonary disease): Comment: PATIENT HAS CHRONIC OBSTRUCTIVE PULMONARY DISEASE, MODERATELY SEVERE . WELL CONTROLLED AND STABLE AT THIS TIME. Code(s): J44.9 - Chronic obstructive pulmonary disease, unspecified Category: Medical Plan: Continue to use Advair 250-51 inhalation b.i.d. and Incruse Ellipta 1 inhalation daily Albuterol HFA 2 puffs Q 6 hours only p.r.n.. (2) Smoker: Comment: HAS HISTORY OF [employer] SMOKING. FINALLY QUIT SINCE SURGERY ON 03/18/2023 DENIES ANY URGE TO GO BACK TO SMOKING. Code(s): F17.200 - Nicotine dependence, unspecified, uncomplicated Category: Social Hx Plan: Commended for not going back to smoking. (3) Hypoxemia: Comment: POST SURGICAL PROCEDURE ,SHE WAS FOUND TO HAVE MILD HYPOXEMIA ON EXERTION. SHE WAS STARTED. ON O2 1 L/MINUTE SUBSEQUENTLY SHE QUIT USING O2 , EXCEPT ONLY WENT FEELING SOME DISTRESS AND SINCE LAST VISIT SHE HAS NOT NEEDED TO USE IT. Code(s): R09.02 - Hypoxemia Category: Medical Plan: IS OKAY NOT TO USE O2, LONG THERE IS NO RESPIRATORY DISTRESS. Coding Level of Care Code Est Pt Level 3 (76311) Diagnoses COPD (chronic obstructive pulmonary disease) J44.9 Smoker F17.200 Hypoxemia R09.02
== END 2024-03-17 16:24 | disposition home or self-care (01) ==
PROVIDERS: PCP Registered Nurse; Visit Provider Internal Medicine
DX: J44.9 Chronic obstructive pulmonary disease, unspecified (principal); F17.200 Nicotine dependence, unspecified, uncomplicated; R09.02 Hypoxemia
CPT/HCPCS: 99213

== ENCOUNTER → 2024-03-17 15:59 | Outpatient (BNVA) | payer OTHER, SELFPAY | PROVIDERS: PCP Registered Nurse; Visit Provider Internal Medicine | DX: J44.9 Chronic obstructive pulmonary disease, unspecified (principal); R09.02 Hypoxemia; F17.210 Nicotine dependence, cigarettes, uncomplicated | CPT/HCPCS: 99212 ==

== ENCOUNTER 2024-03-22 10:44 | Outpatient (AMB) | payer OTHER, SELFPAY ==
--- NOTE | 2024-03-22 11:01 | A.OFFVIS_ITS ---
Intake Visit Reasons: 1 week follow up Skin lesion neck Intake Note: Patient here s/p excision on posterior Rt post neck. Reports incision healing well. Staff Attorney Required: No Accompanied by: Self / Same As Patient Allergies ciprofloxacin [From CIPRO] Allergy (Severe, Verified 03/22/24 11:04) ANAPHYLAXIS HPI Comments Details: Patient presents with the daughter for follow-up. Status post excision of posterior neck lesion. This was benign. Patient would like to have her posterior neck recurrent sebaceous cyst excised. [facility] Medical History Salmonella Hypoxemia History of uterine cancer Type 2 diabetes mellitus, with long-term current use of insulin COPD (chronic obstructive pulmonary disease) Smoker PVD (peripheral vascular disease) Osteoporosis Family history of colon cancer Anxiety Dyslipidemia HTN (hypertension) Surgical History History of lung surgery History of bunionectomy of left great toe History of colonoscopy History of pubovaginal sling History of hysterectomy Family History Brother Colon cancer Social History Household Members: Family Housing: House Alcohol intake: never Patient Tobacco Use Status: Former Tobacco user Tobacco use type: Cigarette Cigarettes Per Day: 15 service: No Physical Exam Neck Other: Roughly 5 x 4 cm soft tissue mass of posterior neck consistent with a large sebaceous cyst. Skin polyp excision site clean dry and intact healing uneventfully with eschar Chest Other: Chest breath sounds bilaterally, HS 1 in 2 GI Other: Abdomen moderately corpulent, soft, benign Assessment & Plan Assessment & Plan (1) Sebaceous cyst: Code(s): L72.3 - Sebaceous cyst Category: Surgical (2) Abnormal skin growth: Code(s): D49.2 - Neoplasm of unspecified behavior of bone, soft tissue, and skin Category: Surgical Plan Risks, benefits, alternatives of posterior neck mass/sebaceous cyst reviewed with the patient and her daughter and included but not limited to bleeding, infection, recurrence, numbness, pain, scarring and the patient wishes to proceed. All questions answered. Arrangements made for this. Patient was on Eliquis. The daughter states that the donor relations coordinator thinking about stopping this. They are seeing donor relations coordinator this Thday. Based on his recommendation regarding Eliquis , it will be stopped or held. Coding Level of Care Code Est Pt Level 5 (10372) Global (47436) Diagnoses Sebaceous cyst L72.3 Abnormal skin growth D49.2
== END 2024-03-22 11:14 | disposition home or self-care (01) ==
PROVIDERS: PCP Registered Nurse; Visit Provider Surgery
DX: L72.3 Sebaceous cyst (principal); D49.2 Neoplasm of unspecified behavior of bone, soft tissue, and skin
CPT/HCPCS: 99024

== ENCOUNTER → 2024-03-22 10:44 | Outpatient (BNVA) | payer OTHER, SELFPAY | PROVIDERS: PCP Registered Nurse; Visit Provider Surgery | DX: L72.3 Sebaceous cyst (principal); D49.2 Neoplasm of unspecified behavior of bone, soft tissue, and skin | CPT/HCPCS: 99212 ==

== ENCOUNTER 2024-04-12 10:28 | Outpatient (AMB) | payer OTHER, SELFPAY ==
--- NOTE | 2024-04-12 10:58 | MHC.OFFVIS ---
Intake Visit Reasons: SPIROMETRY Intake Note: Nurse visit for in office spirometry. Acute Care Physician Required: No Allergies ciprofloxacin [From CIPRO] Allergy (Severe, Verified 03/22/24 11:04) ANAPHYLAXIS PFSH Medical History Salmonella Hypoxemia History of uterine cancer Type 2 diabetes mellitus, with long-term current use of insulin COPD (chronic obstructive pulmonary disease) Smoker PVD (peripheral vascular disease) Osteoporosis Family history of colon cancer Anxiety Dyslipidemia HTN (hypertension) Surgical History History of lung surgery History of bunionectomy of left great toe History of colonoscopy History of pubovaginal sling History of hysterectomy Family History Brother Colon cancer Social History Household Members: Family Housing: House Alcohol intake: never Patient Tobacco Use Status: Former Tobacco user Tobacco use type: Cigarette Cigarettes Per Day: 15 service: No Office Procedures Spirometry Testing Spirometry Comments: In office spirometry completed with results given to Dr Floyd. 70354- Spirometry Assessment & Plan Assessment & Plan (1) COPD (chronic obstructive pulmonary disease): Comment: PATIENT HAS CHRONIC OBSTRUCTIVE PULMONARY DISEASE, MODERATELY SEVERE . WELL CONTROLLED AND STABLE AT THIS TIME. Code(s): J44.9 - Chronic obstructive pulmonary disease, unspecified Category: Medical Plan: spirometry done Plan COPD Orders: Orders AMB Spirometry Testing 04/12/24 J44.9 - Chronic obstructive pulmonary disease, unspecified Coding Level of Care Code Est Pt Level 1 (73489) Diagnoses COPD (chronic obstructive pulmonary disease) J44.9 CPT Codes Spirometry - CPT: 58941- Spirometry ([id number]) Comment Nurse visit only.
== END 2024-04-12 11:26 | disposition home or self-care (01) ==
PROVIDERS: PCP Registered Nurse; Visit Provider Internal Medicine
DX: J44.9 Chronic obstructive pulmonary disease, unspecified (principal)
CPT/HCPCS: 94010

== ENCOUNTER → 2024-04-12 10:28 | Outpatient (BNVA) | payer OTHER, SELFPAY | PROVIDERS: PCP Registered Nurse; Visit Provider Internal Medicine | DX: J44.9 Chronic obstructive pulmonary disease, unspecified (principal) | CPT/HCPCS: 94010; 99211 ==

== ENCOUNTER 2024-04-28 14:36 | Outpatient (AMB) | payer OTHER, SELFPAY ==
[2024-04-28 14:52] VITALS: PULSE 90; O2SAT 92
--- NOTE | 2024-04-28 14:52 | MHC.OFFVIS ---
Vital Signs 04/28/24 14:52 Pulse 90 Pulse Source Pulse Oximeter Pulse Oximetry (%) 92 Oxygen Delivery Method Room Air Intake Visit Reasons: 6 min walk Allergies ciprofloxacin [From CIPRO] Allergy (Severe, Verified 04/28/24 14:53) ANAPHYLAXIS Medication List - Last Reconciled 04/28/24 by Rafaela Garcia LPN albuterol sulfate 90 mcg/actuation 2 puffs inhalation Q4-6H PRN 30 days apixaban (Eliquis) 5 mg PO BID atorvastatin 40 mg PO BEDTIME calcium carbonate-vitamin D3 600 mg-10 mcg (400 unit) 1 tab PO BEDTIME cilostazol 50 mg PO BID fluoxetine 40 mg PO BEDTIME fluticasone propion-salmeterol 250-50 mcg/dose 1 inh inhalation BID gabapentin 300 mg PO DAILY hydralazine 25 mg PO BID hydroxyzine pamoate 25 mg PO TID insulin glargine (Lantus U-100 Insulin) 15 units subcut BEDTIME insulin syringe-needle U-100 (BD Veo Insulin Syringe Ultra-Fine) As directed lisinopril 40 mg PO DAILY magnesium 200 mg PO DAILY metformin 1,000 mg PO BID metoprolol tartrate 50 mg PO BID omeprazole 20 mg PO DAILY sitagliptin phosphate (Januvia) 100 mg PO DAILY umeclidinium 62.5 mcg/actuation (Incruse Ellipta) 1 inh inhalation DAILY PFSH Medical History Salmonella Hypoxemia History of uterine cancer Type 2 diabetes mellitus, with long-term current use of insulin COPD (chronic obstructive pulmonary disease) Smoker PVD (peripheral vascular disease) Osteoporosis Family history of colon cancer Anxiety Dyslipidemia HTN (hypertension) Surgical History History of lung surgery History of bunionectomy of left great toe History of colonoscopy History of pubovaginal sling History of hysterectomy Family History Brother Colon cancer Social History Household Members: Family Housing: House Alcohol intake: never Patient Tobacco Use Status: Former Tobacco user Tobacco use type: Cigarette Cigarettes Per Day: 15 service: No Physical Exam Vital Signs: Last Vital Signs Pulse 90 04/28/24 14:52 Pulse Ox 92 04/28/24 14:52 Oxygen Delivery Method Room Air 04/28/24 14:52 Office Procedures 6 Minute Walk Time:: 14:30 SPO2 % at rest: 92 Pulse at rest: 90 SPO2 % during excercise: 88 Pulse during excercise: 104 SPO2 % after excercise: 92 Pulse after excercise: 98 Distance in yards walked: 290 Nikolay Score: 5 Performance Observations:: ppt walked for 290 yds, S.O.B. noted with spo2 dropping to 88%, oxygen apllied at 1.5 l spo2 incr. to 92%, pt. continued walking maintained sat 92%. Performed by Alyce [id number] - 6 Minute Walk Assessment & Plan Assessment & Plan (1) COPD (chronic obstructive pulmonary disease): Comment: PATIENT HAS CHRONIC OBSTRUCTIVE PULMONARY DISEASE, MODERATELY SEVERE . WELL CONTROLLED AND STABLE AT THIS TIME. Code(s): J44.9 - Chronic obstructive pulmonary disease, unspecified Category: Medical Plan: PATIENT UNDERWENT 6 MINUTES WALK TEST AND SHE DOES DESATURATE DOWN TO 88% AFTER WALKING FOR A FEW MINUTES. SHE NEEDS PORTABLE OXYGEN AT 2 L/MINUTE WHENEVER SHE IS WALKING OR EXERTING. Orders: Orders AMB 6 minute walk Today J44.9 - Chronic obstructive pulmonary disease, unspecified Coding Level of Care Code Established Pt Est Pt Level 1 (16200) Patient Type Established Diagnoses COPD (chronic obstructive pulmonary disease) J44.9 CPT Codes Coding ([id number]) Comment nurse visit only
[2024-04-28 14:57] VITALS: PULSE 90; O2SAT 92
== END 2024-04-28 15:26 | disposition home or self-care (01) ==
PROVIDERS: PCP Registered Nurse; Visit Provider Internal Medicine
DX: J44.9 Chronic obstructive pulmonary disease, unspecified (principal)
CPT/HCPCS: 94618

== ENCOUNTER → 2024-04-28 14:36 | Outpatient (BNVA) | payer OTHER, SELFPAY | PROVIDERS: PCP Registered Nurse; Visit Provider Internal Medicine | DX: J44.9 Chronic obstructive pulmonary disease, unspecified (principal); Z87.891 Personal history of nicotine dependence | CPT/HCPCS: 94618; 99211 ==

== ENCOUNTER → 2024-05-01 14:35 | Outpatient (BNV) | payer OTHER, SELFPAY | PROVIDERS: PCP Registered Nurse; Visit Provider Radiology Diagnostic Radiology | DX: R51.9 Headache, unspecified (principal) | CPT/HCPCS: 70551 ==

== ENCOUNTER 2024-05-01 14:37 | Outpatient (REF) | payer OTHER, SELFPAY ==
--- NOTE | ~2024-05-01 | MR_ITS ---
EXAMINATION: MR BRAIN WITHOUT CONTRAST CLINICAL INFORMATION: Headache COMPARISON: None available. TECHNIQUE: MRI of the brain was obtained using routine sequences without contrast. FINDINGS: There is 9 mm, round shaped, well-defined, intra-axial, isointense T1 slightly hyperintense T2 FLAIR susceptibility nonrestricted, peripheral hypointense T1 and T2 halo lesion centered in the left frontal deep white matter. No dilation no vasogenic edema or mass effect. No restricted diffusion. No acute intracranial hemorrhage, mass effect, midline shift, hydrocephalus or herniation. Sellar/suprasellar region is normal. Craniocervical junction is intact and normal. Flow-void signal within the main cerebral vessels is normal. MR/MR head/brain wo con IMPRESSION: Cavernoma/cavernous angioma, left frontal white matter. No acute stroke/nonhemorrhagic ischemia or acute brain abnormality. Electronically signed by: Jose Cheung MD 05/02/2024 07:12 AM EDT
== END 2024-05-01 14:38 | disposition home or self-care (01) ==
LOC: HO.MRI 14:37
PROVIDERS: PCP Registered Nurse; Visit Provider Registered Nurse
DX: R51.9 Headache, unspecified (principal)
CPT/HCPCS: 70551

== ENCOUNTER 2024-06-07 10:48 | Outpatient (AMB) | payer OTHER, SELFPAY ==
--- NOTE | 2024-06-07 10:53 | HO.NEPHOV ---
Vital Signs 06/07/24 10:55 Height 5 ft 4 in Weight 183 lb 6 oz BMI 31.5 BP 130/60 Blood Pressure Location Lt brachial Position Sitting Pulse 77 Pulse Source Pulse Oximeter Pulse Oximetry (%) 94 Oxygen Delivery Method Room Air Intake Visit Reasons: 3 mon follow up/ Conf Director Of Product Management Services: Director Of Product Management Offered & Declined ([facility] [place] Director Of Product Management services refused ) Accompanied by: Daughter Allergies ciprofloxacin [From CIPRO] Allergy (Severe, Verified 06/07/24 10:55) ANAPHYLAXIS HPI Comments Details: Ttee was seen , accompanied by her daughter, in follow up for hypomagnesemia. She has longstanding history of hypertension and diabetes mellitus. She denies nausea, vomiting or diarrhea. She has no history of calcium disorders. She has not been taking any diuretics. She has history of lung cancer and had undergone surgery. She never received any chemotherapy. She has no history of nephrocalcinosis. She has no family history of hypomagnesemia. She has history of excessive alcohol intake for a long time but currently does not drink at all. Her blood pressure has been at goal. She does not have any chest pain, shortness of breath, palpitation, syncope or history of cardiac dysfunction. She denied any active complaints during the time of this office visit [facility] Medical History Salmonella Hypoxemia History of uterine cancer Type 2 diabetes mellitus, with long-term current use of insulin COPD (chronic obstructive pulmonary disease) Smoker PVD (peripheral vascular disease) Osteoporosis Family history of colon cancer Anxiety Dyslipidemia HTN (hypertension) Surgical History History of lung surgery History of bunionectomy of left great toe History of colonoscopy History of pubovaginal sling History of hysterectomy Family History Brother Colon cancer Social History Household Members: Family Housing: House Alcohol intake: never Patient Tobacco Use Status: Former Tobacco user Tobacco use type: Cigarette Cigarettes Per Day: 15 service: No Physical Exam Vital Signs: Last Vital Signs Pulse 77 06/07/24 10:55 BP 130/60 06/07/24 10:55 Pulse Ox 94 06/07/24 10:55 Oxygen Delivery Method Room Air 06/07/24 10:55 BMI result Body Mass Index 31.5 Const General: comfortable and no acute distress Orientation/consciousness: patient oriented x3 HEENT Head: Yes normocephalic Mouth: Normal oral and palatal mucosa present Eyes EOM: EOMs intact bilaterally Neck Neck: Yes supple Resp Auscultation: clear to auscultation bilaterally Cardio Jugular venous distension: no JVD Rate: regular rate GI Palpation (GI): Soft to palpation Auscultation: normal bowel sounds General: Yes no CVA tenderness Back/Spine/Pelvis Back: no CVA tenderness Skin General skin exam: no rashes or lesions noted Neuro General: patient oriented x3 and moves all extremities Extrem General: Yes no pedal edema Results Reviewed Nephrology Results: No Data to Display Assessment & Plan Assessment & Plan (1) Hypomagnesemia: Code(s): E83.42 - Hypomagnesemia Category: Medical Plan Tete most likely has 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 She also has been taking proton pump inhibitor in the past . She can continue Magnesium 200 mg twice daily. Her blood pressure has been at goal on current medication regimen. Her serum potassium had been high normal. 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 I did not make any other medication changes today but ordered follow up lab work. All her and her daughter's questions were answered Orders: Orders Magnesium 6 Months E83.42 - Hypomagnesemia Creatinine 6 Months E83.42 - Hypomagnesemia Blood Urea Nitrogen 6 Months E83.42 - Hypomagnesemia Electrolytes 6 Months E83.42 - Hypomagnesemia Coding Level of Care Code Est Pt Level 4 (23135) Diagnoses Hypomagnesemia E83.42
[2024-06-07 10:55] VITALS: BP 130/60; PULSE 77; O2SAT 94; BMI 31.5
== END 2024-06-07 11:09 | disposition home or self-care (01) ==
PROVIDERS: PCP Registered Nurse; Visit Provider Internal Medicine Nephrology
DX: E83.42 Hypomagnesemia (principal)
CPT/HCPCS: 99214

== ENCOUNTER → 2024-06-07 10:48 | Outpatient (BNVA) | payer OTHER, SELFPAY | PROVIDERS: PCP Registered Nurse; Visit Provider Internal Medicine Nephrology | DX: E83.42 Hypomagnesemia (principal); I10 Essential (primary) hypertension; E11.9 Type 2 diabetes mellitus without complications | CPT/HCPCS: 99212 ==

== ENCOUNTER 2024-06-13 09:45 | Day surgery (SDC) | payer OTHER, SELFPAY ==
[2024-06-09 12:36] VITALS: BMI 30.9
--- NOTE | 2024-06-10 12:34 | P.CONAN_ITS ---
Documented by User: Cindy Ascencio NP 06/10/24 12:40 HPI - Anesthesia Eval Consult details Narrative: 69yo F for Colonoscopy Cardiac optimized. Follows [facility] Cardiology for CAD, afib, htn, PVD, smoking Pulmo optimized. Follows [facility] [place] pulmo for COPD. PRN O2 Anesthesia Pre-Procedure Meds Is the patient on any of the following meds?: GLP1/DPP4 PMFSH Active Problems Active Problems: All Active Problems Sebaceous cyst (Acute) Abnormal skin growth (Acute) Cardiomyopathy (Acute) Paroxysmal atrial fibrillation (Acute) Salmonella (Acute) Bandemia (Acute) Hypoxia (Acute) Colitis (Acute) Sepsis (Acute) Colitis (Acute) Proteinuria (Acute) Hypomagnesemia (Acute) Pulmonary nodule (Acute) Hemorrhoids (Acute) Colon polyps (Acute) Diverticulosis (Acute) Frequent fecal incontinence (Acute) Hypoxemia (Acute) Type 2 diabetes mellitus, with long-term current use of insulin (Acute) Dyslipidemia (Acute) HTN (hypertension) (Acute) COPD (chronic obstructive pulmonary disease) (Acute) Smoker (Acute) Anxiety (Acute) Family history of colon cancer (Acute) Past Medical History Medical History Salmonella Hypoxemia History of uterine cancer Type 2 diabetes mellitus, with long-term current use of insulin COPD (chronic obstructive pulmonary disease) Smoker PVD (peripheral vascular disease) Osteoporosis Family history of colon cancer Anxiety Dyslipidemia HTN (hypertension) Family History Family History Brother Colon cancer Family history of problems with anesthesia: No Surgical History Surgical History History of lung surgery History of bunionectomy of left great toe History of colonoscopy History of pubovaginal sling History of hysterectomy History of Problems with Anesthesia: No Social History Social History Household Members: Family Housing: House Are you a primary transitional care nurse to a significant other at home: No Do you presently have visiting nurse or other home services: No Alcohol intake: never Patient Tobacco Use Status: Former Tobacco user Tobacco use type: Cigarette Cigarettes Per Day: 15 Have you been hit, kicked, punched, or otherwise hurt by someone within the past year? If so, by whom?: No Are you DNR?: No Advance Directives: No Advance Directives Information Provided: Yes Recently lost weight without trying: No Nutrition Risks: No Nutritional Risk service: No Meds Allergies Allergy/AdvReac Type Severity Reaction Status Date / Time ciprofloxacin [From CIPRO] Allergy Severe ANAPHYLAXIS Verified 06/13/24 10:45 Home Medications ?Medication ?Instructions ?Recorded ?Confirmed ?Last Taken ?Type atorvastatin 40 mg tablet 40 mg PO BEDTIME 08/29/21 06/13/24 02/09/24 History calcium 600 mg (as 1 tab PO BEDTIME 08/29/21 06/13/24 02/09/24 History carbonate)-vitamin D3 10 mcg (400 unit) tablet cilostazol 50 mg tablet 50 mg PO BID 08/29/21 06/13/24 02/09/24 History fluoxetine 40 mg capsule 40 mg PO BEDTIME 08/29/21 06/13/24 02/09/24 History gabapentin 300 mg capsule 300 mg PO DAILY 08/29/21 06/13/24 02/09/24 History hydralazine 25 mg tablet 25 mg PO BID 08/29/21 06/13/24 02/09/24 History hydroxyzine pamoate 25 mg capsule 25 mg PO TID 08/29/21 06/13/24 02/09/24 History insulin syringe-needle U-100 1/2 #10 ea 08/29/21 06/13/24 Unknown History mL 31 gauge x 15/64 (BD Veo Insulin Syringe Ultra-Fine) lisinopril 40 mg tablet 40 mg PO DAILY 08/29/21 06/13/24 02/09/24 History metformin 1,000 mg tablet 1,000 mg PO BID 08/29/21 06/13/24 02/09/24 History fluticasone 250 mcg-salmeterol 50 1 inh inhalation BID 05/14/23 06/13/24 02/09/24 History mcg/dose blistr powdr for inhalation umeclidinium 62.5 mcg/actuation 1 inh inhalation DAILY 05/14/23 06/13/24 02/09/24 History blister powder for inhalation (Incruse Ellipta) insulin glargine 100 unit/mL 15 unit subcut BEDTIME 12/02/23 06/13/24 02/09/24 History subcutaneous solution (Lantus U-100 Insulin) sitagliptin phosphate 100 mg 100 mg PO DAILY 12/02/23 06/13/24 06/10/24 History tablet (Januvia) magnesium 200 mg tablet 200 mg PO DAILY 02/10/24 06/13/24 02/09/24 History metoprolol tartrate 100 mg tablet 100 mg PO BID 06/07/24 06/13/24 Unknown History Exam Height,Weight and Vital Signs: Height 5 ft 4 in Weight 81.647 kg Pertinent Lab Results Pertinent Lab Results: Laboratory Tests 03/04/24 16:09 WBC 9.9 Hgb 11.2 L Hct 35.9 L Plt Count 282 Sodium 137 Potassium 4.9 D Chloride 100 Carbon Dioxide 26 BUN 14 Creatinine 1.00 Narrative Narrative: ECHO 02/2024 Conclusions: - 1. Mildly to moderately reduced LV ejection fraction of 40-45% with impaired relaxation filling pattern 2. Calcific aortic and mitral valve changes noted with normal cardiac valvular Dopplers 3. No gross pericardial effusion EKG 02/2024 Vent. Rate : 085 BPM Atrial Rate : 085 BPM P-R Int : 130 ms QRS Dur : 098 ms QT Int : 400 ms P-R-T Axes : 014 -05 011 degrees QTc Int : 476 ms Sinus rhythm with Premature atrial complexes Nonspecific ST abnormality Abnormal ECG When compared with ECG of 12-FEB-2024 02:09, Sinus rhythm has replaced Atrial flutter Vent. rate has decreased BY [address] no longer depressed in Lateral leads Nonspecific T wave abnormality now evident in Inferior leads T wave inversion no longer evident in Lateral leads Assessment and Plan Assessment Anesthesia Assessment: Chart Reviewed Final Anesthetic Review Family History of Problems with Anesthesia: No History of Problems with Anesthesia: No Documented by User: Jhoana Elena MD 06/13/24 12:14 [facility] Past Medical History Medical History Salmonella Hypoxemia History of uterine cancer Type 2 diabetes mellitus, with long-term current use of insulin COPD (chronic obstructive pulmonary disease) Smoker PVD (peripheral vascular disease) Osteoporosis Family history of colon cancer Anxiety Dyslipidemia HTN (hypertension) Family History Family History Brother Colon cancer Surgical History Surgical History History of lung surgery History of bunionectomy of left great toe History of colonoscopy History of pubovaginal sling History of hysterectomy Social History Social History Household Members: Family Housing: House Are you a primary transitional care nurse to a significant other at home: No Do you presently have visiting nurse or other home services: No Alcohol intake: never Patient Tobacco Use Status: Former Tobacco user Tobacco use type: Cigarette Cigarettes Per Day: 15 Have you been hit, kicked, punched, or otherwise hurt by someone within the past year? If so, by whom?: No Are you DNR?: No Advance Directives: No Advance Directives Information Provided: Yes Recently lost weight without trying: No Nutrition Risks: No Nutritional Risk service: No Meds Allergies Allergy/AdvReac Type Severity Reaction Status Date / Time ciprofloxacin [From CIPRO] Allergy Severe ANAPHYLAXIS Verified 06/13/24 10:45 Home Medications ?Medication ?Instructions ?Recorded ?Confirmed ?Last Taken ?Type atorvastatin 40 mg tablet 40 mg PO BEDTIME 08/29/21 06/13/24 02/09/24 History calcium 600 mg (as 1 tab PO BEDTIME 08/29/21 06/13/24 02/09/24 History carbonate)-vitamin D3 10 mcg (400 unit) tablet cilostazol 50 mg tablet 50 mg PO BID 08/29/21 06/13/24 02/09/24 History fluoxetine 40 mg capsule 40 mg PO BEDTIME 08/29/21 06/13/24 02/09/24 History gabapentin 300 mg capsule 300 mg PO DAILY 08/29/21 06/13/24 02/09/24 History hydralazine 25 mg tablet 25 mg PO BID 08/29/21 06/13/24 02/09/24 History hydroxyzine pamoate 25 mg capsule 25 mg PO TID 08/29/21 06/13/24 02/09/24 History insulin syringe-needle U-100 1/2 #10 ea 08/29/21 06/13/24 Unknown History mL 31 gauge x 15/64 (BD Veo Insulin Syringe Ultra-Fine) lisinopril 40 mg tablet 40 mg PO DAILY 08/29/21 06/13/24 02/09/24 History metformin 1,000 mg tablet 1,000 mg PO BID 08/29/21 06/13/24 02/09/24 History fluticasone 250 mcg-salmeterol 50 1 inh inhalation BID 05/14/23 06/13/24 02/09/24 History mcg/dose blistr powdr for inhalation umeclidinium 62.5 mcg/actuation 1 inh inhalation DAILY 05/14/23 06/13/24 02/09/24 History blister powder for inhalation (Incruse Ellipta) insulin glargine 100 unit/mL 15 unit subcut BEDTIME 12/02/23 06/13/24 02/09/24 History subcutaneous solution (Lantus U-100 Insulin) sitagliptin phosphate 100 mg 100 mg PO DAILY 12/02/23 06/13/24 06/10/24 History tablet (Januvia) magnesium 200 mg tablet 200 mg PO DAILY 02/10/24 06/13/24 02/09/24 History metoprolol tartrate 100 mg tablet 100 mg PO BID 06/07/24 06/13/24 Unknown History Exam Airway Mallampati Class: III TM Dist: >3cm Neck ROM: Full Assessment and Plan Assessment Anesthesia Assessment: Anesthesia Plan Discussed Final Anesthetic Review NPO: Yes ASA Class: III Final Preanesthetic Review: No Changes in Pt Med Stat, Meds/Allgs Chart Reviewed, Consent Obtained/Reviewed, Anes Risks/Benef Reviewed and DNR Form (If Appl.) Patient Risk: Intermediate Procedure Risk: Low Anesthetic Plan Anesthetic Plan: TIVA Disposition: Standard PACU
[2024-06-13] MEDS: Lactated Ringers 1,000 ML 100 ML IVCONT (10:14)
[2024-06-13 10:29] VITALS: BMI 29.9
[2024-06-13 10:30] VITALS: BP 143/72; PULSE 103; RESP 18; TEMP 36.6; O2SAT 95
[2024-06-13 10:38] LABS: Glucose, Whole Blood 300 mg/dL (60-115)
[2024-06-13] MEDS: Insulin Lispro 100 UNIT/ML 3 ML VIAL 6 UNIT SUBCUT (10:43)
--- NOTE | 2024-06-13 11:26 | MHC.SHP ---
Pre-Procedural Eval Section A - 24 Hr Update-Section A only Date of Service: 06/13/24 Section B - Complete if H&P > 30 days Chief Complaint: History of polyps, fam hx of colon ca Details of Present Illness: PMH: Hypoxemia History of uterine cancer Type 2 diabetes mellitus, with long-term current use of insulin COPD (chronic obstructive pulmonary disease) Smoker PVD (peripheral vascular disease) Osteoporosis Family history of colon cancer Anxiety Dyslipidemia HTN (hypertension) Surgical History History of lung surgery History of bunionectomy of left great toe History of colonoscopy History of pubovaginal sling History of hysterectomy Present Medications: see Short Stay Collaborative assessment Allergies: Allergies Allergy/AdvReac Type Severity Reaction Status Date / Time ciprofloxacin [From CIPRO] Allergy Severe ANAPHYLAXIS Verified 06/13/24 10:45 Review of Systems Review of Systems Comment: Ten point ROS negative Exam Exam Comment: Gen appear: No acute distress HEENT: no icterus Chest: No overt resp distress Abd: soft, nontender, nondistended Psych: Stable affect, answering questions appropriately Neuro: A/Ox3 noted to move all extremities spontaneously Ext: no peripheral edema Plan Diagnosis/Plan: Unchanged I have reviewed the history and physical and performed a pertinent physical examination on my patient. No changes have occurred unless specified. Time Spent With Patient Time: Total time managing care of this patient today ____ minutes.
[2024-06-13 11:31] LABS: Glucose, Whole Blood 259 mg/dL (60-115)
--- NOTE | 2024-06-13 12:04 | P.OPN-COLO_ITS ---
Colonoscopy Operative Note Operative Note Date of Service: 06/13/24 Narrative: Procedure: Colonoscopy Indication: Personal history of polyps, fam hx of colon cancer Endoscopist: Nora Valdez MD Anesthesia Provider: Dr Jhoana Elena Anesthesia type: MAC Instrument: Olympus [id number]-[id number] Consent: Indication, risks vs benefits, and alternatives were discussed with the patient who gave written informed consent to proceed. An product analyst was utilized to assist with the consent. EKG, pulse, pulse oximetry and blood pre ssure were monitored throughout the procedure. Please see anesthesia flowsheet. Procedure: The patient was brought to the procedure room and placed in the left lateral decubitus position. IV medications were administered by the anesthesia provider in attendance. A digital rectal exam was performed which was abnormal due to finding of external hemorrhoids. A distal attachment cap was affixed to the tip of the colonoscope which was then inserted through the anus and advanced through the colon to the cecum at 80 cm,and terminal ileum. Appendiceal orifice and ileocecal valve were identified. Mucosa was carefully examined under high definition white light as the instrument was slowly withdrawn in a retrograde panoramic fashion. Retroflexion was performed in rectum. The procedure was not difficult. There were no immediate obvious complications. The quality of the prep was BBPS: 2+3+2 = adequate Withdrawal time 12 minutes. Limitations: No limitations. Findings: Mucosa: Normal to cecum and terminal ileum. Previous tattoo noted at 70 cm without any residual polyp under HDWL or NBI. Protruding lesions: * 1 sessile polyp of size 3 mm in tranverse colon. Cold snare polypectomy was performed. The polyp was completely removed and retrieved. * Large internal hemorrhoids with stigmata of recent bleeding. Excavated lesions: * Scattered diverticulosis of whole colon L>R. Impression: 1. Normal colon mucosa. No residual polyp at previous tattoo site. 2. Total of 1 polyp removed 3. Diverticulosis 3. External and internal hemorrhoids Recommendations: - Follow path results. - Repeat colonoscopy in 5 years due to history of advanced adenoma and fam history. - Anusol supp Rxed.
[2024-06-13 12:08] VITALS: BP 88/50; PULSE 79; RESP 16; TEMP 36.7; O2SAT 98
[2024-06-13 12:23] VITALS: BP 130/70; PULSE 86; RESP 16; TEMP 36.7; O2SAT 95
== END 2024-06-13 13:17 | disposition home or self-care (01) ==
PROVIDERS: PCP Registered Nurse; Visit Provider Internal Medicine
PROC: 0DJD8ZZ Inspection of Lower Intestinal Tract, Via Natural or Artificial Opening Endoscopic (ICD-10-PCS; CPT 45378; principal; 2024-06-13 11:10)
DX: Z12.11 Encounter for screening for malignant neoplasm of colon (principal); Z80.0 Family history of malignant neoplasm of digestive organs; Z86.0101 Personal history of adenomatous and serrated colon polyps; K51.40 Inflammatory polyps of colon without complications; K57.30 Diverticulosis of large intestine without perforation or abscess without bleeding; K64.8 Other hemorrhoids; K64.4 Residual hemorrhoidal skin tags; J44.9 Chronic obstructive pulmonary disease, unspecified; R09.02 Hypoxemia; I10 Essential (primary) hypertension; I73.9 Peripheral vascular disease, unspecified; E78.5 Hyperlipidemia, unspecified; M81.0 Age-related osteoporosis without current pathological fracture; E11.9 Type 2 diabetes mellitus without complications; Z85.42 Personal history of malignant neoplasm of other parts of uterus; Z79.4 Long term (current) use of insulin; Z79.82 Long term (current) use of aspirin; Z79.51 Long term (current) use of inhaled steroids; Z79.84 Long term (current) use of oral hypoglycemic drugs; Z79.899 Other long term (current) drug therapy; Z88.1 Allergy status to other antibiotic agents; Z99.81 Dependence on supplemental oxygen; Z87.891 Personal history of nicotine dependence
CPT/HCPCS: 45385; 82947; 88305; J2003; J2250; J2704

== ENCOUNTER → 2024-06-13 09:45 | Outpatient (BNV) | payer OTHER, SELFPAY | PROVIDERS: PCP Registered Nurse; Visit Provider Internal Medicine | DX: Z12.11 Encounter for screening for malignant neoplasm of colon (principal); Z86.0100 Personal history of colon polyps, unspecified; Z80.0 Family history of malignant neoplasm of digestive organs; K63.5 Polyp of colon | CPT/HCPCS: 45385 ==

== ENCOUNTER 2024-07-28 11:36 | Day surgery (SDC) | payer OTHER, SELFPAY ==
[2024-07-18 10:52] VITALS: BMI 31.2
--- NOTE | 2024-07-27 10:48 | MHC.SHP ---
Pre-Procedural Eval Section A - 24 Hr Update-Section A only Date of Service: 07/28/24 The patient is an INPATIENT: No Changes since office visit: No Cold of Flu in the past 2 weeks, No New Medical Problems, No Changes in Medication and No Patient answered all questions Section B - Complete if H&P > 30 days Chief Complaint: Neoplasm of unspecified behavior of bone,sebaceous Allergies: Allergies Allergy/AdvReac Type Severity Reaction Status Date / Time ciprofloxacin [From CIPRO] Allergy Severe ANAPHYLAXIS Verified 06/13/24 10:45 Review of Systems Sugical H&P ROS: Negative: Constitution, Cardiovascular, Respiratory, Neurological, Psychiatric, Hem-Onc, Allergic/Immunologic, Gastrointestinal, Genitourinary, Musculoskeletal, Integumentary, Endocrine and Eyes/Ears/Nose/Throat Exam Surgical H&P Exam: Normal: HEENT, Normal: Heart, Normal: Lungs, Normal: Extremities, Normal: Abdomen, Normal: Skin and Normal: Neurological Plan I have reviewed the history and physical and performed a pertinent physical examination on my patient. No changes have occurred unless specified. Time Spent With Patient Time: Total time managing care of this patient today ____ minutes.
[2024-07-28 13:30] VITALS: BP 164/65; PULSE 59; RESP 14; TEMP 36.4; O2SAT 97
[2024-07-28] MEDS: Lactated Ringers 1,000 ML 100 ML IVCONT (13:30)
--- NOTE | 2024-07-28 13:30 | P.CONAN_ITS ---
Documented by User: Cindy Ascencio NP 07/27/24 09:30 HPI - Anesthesia Eval Consult details Narrative: 69yo F for Wide Local Excision of Posterior Neck Mass s/p Colonoscopy 06/2024 with MAC Prior to: Cardiac optimized. Follows [facility] Cardiology for CAD, afib, htn, PVD, smoking Pulmo optimized. Follows [facility] pulmo for COPD. PRN O2 Anesthesia Pre-Procedure Meds Is the patient on any of the following meds?: GLP1/DPP4 PMFSH Active Problems Active Problems: All Active Problems Sebaceous cyst (Acute) Abnormal skin growth (Acute) Cardiomyopathy (Acute) Paroxysmal atrial fibrillation (Acute) Bandemia (Acute) Hypoxia (Acute) Colitis (Acute) Sepsis (Acute) Colitis (Acute) Proteinuria (Acute) Hypomagnesemia (Acute) Pulmonary nodule (Acute) Hemorrhoids (Acute) Colon polyps (Acute) Diverticulosis (Acute) Frequent fecal incontinence (Acute) Salmonella (Acute) Hypoxemia (Acute) Type 2 diabetes mellitus, with long-term current use of insulin (Acute) Dyslipidemia (Acute) HTN (hypertension) (Acute) COPD (chronic obstructive pulmonary disease) (Acute) Smoker (Acute) Anxiety (Acute) Family history of colon cancer (Acute) Past Medical History Medical History (Updated 07/18/24 @ 10:57 by Cherie Connelly RN) CAD (coronary artery disease) Supplemental oxygen dependent Hx of cancer of uterus Salmonella Hypoxemia History of uterine cancer Type 2 diabetes mellitus, with long-term current use of insulin COPD (chronic obstructive pulmonary disease) Smoker PVD (peripheral vascular disease) Osteoporosis Family history of colon cancer Anxiety Dyslipidemia HTN (hypertension) Family History Family History Brother Colon cancer Family history of problems with anesthesia: No Surgical History Surgical History (Updated 07/15/24 @ 12:39 by Cherie Connelly RN) History of lung surgery History of bunionectomy of left great toe History of colonoscopy (06/13/24) History of pubovaginal sling History of hysterectomy History of Problems with Anesthesia: No Social History Social History Household Members: Family Housing: House Are you a primary career services representative to a significant other at home: No Do you presently have visiting nurse or other home services: No Alcohol intake: never Patient Tobacco Use Status: Former Tobacco user Tobacco use type: Cigarette Cigarettes Per Day: 15 Smoked in Last 30 Days: No Use of substances other than those prescribed or required for medical reasons: No Have you been hit, kicked, punched, or otherwise hurt by someone within the past year? If so, by whom?: No Are you DNR?: No Advance Directives: No Advance Directives Information Provided: Yes Advance Directives on File: No Recently lost weight without trying: No Nutrition Risks: No Nutritional Risk service: No Meds Allergies Allergy/AdvReac Type Severity Reaction Status Date / Time ciprofloxacin [From CIPRO] Allergy Severe ANAPHYLAXIS Verified 06/13/24 10:45 Home Medications ?Medication ?Instructions ?Recorded ?Confirmed ?Last Taken ?Type atorvastatin 40 mg tablet 40 mg PO BEDTIME 08/29/21 07/15/24 02/09/24 History calcium 600 mg (as 1 tab PO BEDTIME 08/29/21 07/28/24 07/28/24 History carbonate)-vitamin D3 10 mcg (400 unit) tablet cilostazol 50 mg tablet 50 mg PO BID 08/29/21 07/15/24 02/09/24 History fluoxetine 40 mg capsule 40 mg PO BEDTIME 08/29/21 07/28/24 07/28/24 History gabapentin 300 mg capsule 300 mg PO DAILY 08/29/21 07/15/24 02/09/24 History hydralazine 25 mg tablet 25 mg PO BID 08/29/21 07/15/24 02/09/24 History insulin syringe-needle U-100 1/2 #10 ea 08/29/21 06/13/24 Unknown History mL 31 gauge x 15/64 (BD Veo Insulin Syringe Ultra-Fine) lisinopril 40 mg tablet 40 mg PO DAILY 08/29/21 07/28/24 07/28/24 History metformin 1,000 mg tablet 1,000 mg PO BID 08/29/21 07/15/24 02/09/24 History fluticasone 250 mcg-salmeterol 50 1 inh inhalation BID 05/14/23 07/15/24 02/09/24 History mcg/dose blistr powdr for inhalation umeclidinium 62.5 mcg/actuation 1 inh inhalation DAILY 05/14/23 07/15/24 02/09/24 History blister powder for inhalation (Incruse Ellipta) insulin glargine 100 unit/mL 15 unit subcut BEDTIME 12/02/23 07/15/24 02/09/24 History subcutaneous solution (Lantus U-100 Insulin) sitagliptin phosphate 100 mg 100 mg PO DAILY 12/02/23 07/15/24 06/10/24 History tablet (Januvia) magnesium 200 mg tablet 200 mg PO DAILY 02/10/24 07/15/24 02/09/24 History metoprolol tartrate 100 mg tablet 50 mg PO BID 06/07/24 07/28/24 07/28/24 History verapamil 300 mg capsule 24hr 300 mg PO BEDTIME 07/15/24 07/15/[address],ext.release Exam Height,Weight and Vital Signs: Height 5 ft 4 in Weight 82.554 kg Pertinent Lab Results Pertinent Lab Results: Laboratory Tests 03/04/24 16:09 WBC 9.9 Hgb 11.2 L Hct 35.9 L Plt Count 282 Sodium 137 Potassium 4.9 D Chloride 100 Carbon Dioxide 26 BUN 14 Creatinine 1.00 Narrative Narrative: ECHO 02/2024 Conclusions: - 1. Mildly to moderately reduced LV ejection fraction of 40-45% with impaired relaxation filling pattern 2. Calcific aortic and mitral valve changes noted with normal cardiac valvular Dopplers 3. No gross pericardial effusion EKG 02/2024 Vent. Rate : 085 BPM Atrial Rate : 085 BPM P-R Int : 130 ms QRS Dur : 098 ms QT Int : 400 ms P-R-T Axes : 014 -05 011 degrees QTc Int : 476 ms Sinus rhythm with Premature atrial complexes Nonspecific ST abnormality Abnormal ECG When compared with ECG of 12-FEB-2024 02:09, Sinus rhythm has replaced Atrial flutter Vent. rate has decreased BY [address] no longer depressed in Lateral leads Nonspecific T wave abnormality now evident in Inferior leads T wave inversion no longer evident in Lateral leads Assessment and Plan Assessment Anesthesia Assessment: Chart Reviewed Final Anesthetic Review Family History of Problems with Anesthesia: No History of Problems with Anesthesia: No Documented by User: Vanessa Paulson DO 07/28/24 13:56 HPI - Anesthesia Eval Anesthesia Pre-Procedure Meds Is the patient on any of the following meds?: GLP1/DPP4 PMF Past Medical History Medical History (Updated 07/18/24 @ 10:57 by Cherie Connelly RN) CAD (coronary artery disease) Supplemental oxygen dependent Hx of cancer of uterus Salmonella Hypoxemia History of uterine cancer Type 2 diabetes mellitus, with long-term current use of insulin COPD (chronic obstructive pulmonary disease) Smoker PVD (peripheral vascular disease) Osteoporosis Family history of colon cancer Anxiety Dyslipidemia HTN (hypertension) Family History Family History Brother Colon cancer Family history of problems with anesthesia: No Surgical History Surgical History (Updated 07/15/24 @ 12:39 by Cherie Connelly RN) History of lung surgery History of bunionectomy of left great toe History of colonoscopy (06/13/24) History of pubovaginal sling History of hysterectomy History of Problems with Anesthesia: No Social History Social History Household Members: Family Housing: House Are you a primary career services representative to a significant other at home: No Do you presently have visiting nurse or other home services: No Alcohol intake: never Patient Tobacco Use Status: Former Tobacco user Tobacco use type: Cigarette Cigarettes Per Day: 15 Smoked in Last 30 Days: No Use of substances other than those prescribed or required for medical reasons: No Have you been hit, kicked, punched, or otherwise hurt by someone within the past year? If so, by whom?: No Are you DNR?: No Advance Directives: No Advance Directives Information Provided: Yes Advance Directives on File: No Recently lost weight without trying: No Nutrition Risks: No Nutritional Risk service: No Meds Allergies Allergy/AdvReac Type Severity Reaction Status Date / Time ciprofloxacin [From CIPRO] Allergy Severe ANAPHYLAXIS Verified 06/13/24 10:45 Home Medications ?Medication ?Instructions ?Recorded ?Confirmed ?Last Taken ?Type atorvastatin 40 mg tablet 40 mg PO BEDTIME 08/29/21 07/15/24 02/09/24 History calcium 600 mg (as 1 tab PO BEDTIME 08/29/21 07/28/24 07/28/24 History carbonate)-vitamin D3 10 mcg (400 unit) tablet cilostazol 50 mg tablet 50 mg PO BID 08/29/21 07/15/24 02/09/24 History fluoxetine 40 mg capsule 40 mg PO BEDTIME 08/29/21 07/28/24 07/28/24 History gabapentin 300 mg capsule 300 mg PO DAILY 08/29/21 07/15/24 02/09/24 History hydralazine 25 mg tablet 25 mg PO BID 08/29/21 07/15/24 02/09/24 History insulin syringe-needle U-100 1/2 #10 ea 08/29/21 06/13/24 Unknown History mL 31 gauge x 15/64 (BD Veo Insulin Syringe Ultra-Fine) lisinopril 40 mg tablet 40 mg PO DAILY 08/29/21 07/28/24 07/28/24 History metformin 1,000 mg tablet 1,000 mg PO BID 08/29/21 07/15/24 02/09/24 History fluticasone 250 mcg-salmeterol 50 1 inh inhalation BID 05/14/23 07/15/24 02/09/24 History mcg/dose blistr powdr for inhalation umeclidinium 62.5 mcg/actuation 1 inh inhalation DAILY 05/14/23 07/15/24 02/09/24 History blister powder for inhalation (Incruse Ellipta) insulin glargine 100 unit/mL 15 unit subcut BEDTIME 12/02/23 07/15/24 02/09/24 History subcutaneous solution (Lantus U-100 Insulin) sitagliptin phosphate 100 mg 100 mg PO DAILY 12/02/23 07/15/24 06/10/24 History tablet (Januvia) magnesium 200 mg tablet 200 mg PO DAILY 02/10/24 07/15/24 02/09/24 History metoprolol tartrate 100 mg tablet 50 mg PO BID 06/07/24 07/28/24 07/28/24 History verapamil 300 mg capsule 24hr 300 mg PO BEDTIME 07/15/24 07/15/[address],ext.release Exam Exam Date and Time: 07/28/34 1330 Height,Weight and Vital Signs: Height 5 ft 4 in Weight 82.554 kg Vital Signs Temperature 97.5 F 07/28/24 13:30 Pulse Rate 59 07/28/24 13:30 Respiratory Rate 14 07/28/24 13:30 Blood Pressure 164/65 H 07/28/24 13:30 Pulse Oximetry 97 07/28/24 13:30 Oxygen Delivery Method Room Air 07/28/24 13:30 Temperature 97.5 F 07/28/24 13:30 Pulse Rate 59 07/28/24 13:30 Respiratory Rate 14 07/28/24 13:30 Blood Pressure 164/65 H 07/28/24 13:30 Pulse Oximetry 97 07/28/24 13:30 Oxygen Delivery Method Room Air 07/28/24 13:30 Airway Mallampati Class: III TM Dist: >3cm Neck ROM: Full Denture: Upper and Lower Loose/Missing/Broken Teeth: Yes (loose teeth - bottom 2 front) Heart: S1S2 Lungs: Diminished bilaterally Assessment and Plan Assessment Anesthesia Assessment: Anesthesia Plan Discussed and Chart Reviewed Final Anesthetic Review Family History of Problems with Anesthesia: No History of Problems with Anesthesia: No NPO: Yes ASA Class: III Final Preanesthetic Review: No Changes in Pt Med Stat, Meds/Allgs Chart Reviewed, Consent Obtained/Reviewed (seismic interpreter at bedside for translation) and Anes Risks/Benef Reviewed Patient Risk: Intermediate Procedure Risk: Low Anesthetic Plan Anesthetic Plan: MAC: and Agree w/ Assess. and Plan Disposition: Standard PACU
[2024-07-28 13:35] LABS: Glucose, Whole Blood 186 mg/dL (60-115)
--- NOTE | 2024-07-28 14:05 | P.CONAN_ITS ---
HPI - Anesthesia Eval Consult details Narrative: sebaceous cyst removal PMFSH Active Problems Active Problems: All Active Problems Sebaceous cyst (Acute) Abnormal skin growth (Acute) Cardiomyopathy (Acute) Paroxysmal atrial fibrillation (Acute) Bandemia (Acute) Hypoxia (Acute) Colitis (Acute) Sepsis (Acute) Colitis (Acute) Proteinuria (Acute) Hypomagnesemia (Acute) Pulmonary nodule (Acute) Hemorrhoids (Acute) Colon polyps (Acute) Diverticulosis (Acute) Frequent fecal incontinence (Acute) Salmonella (Acute) Hypoxemia (Acute) Type 2 diabetes mellitus, with long-term current use of insulin (Acute) Dyslipidemia (Acute) HTN (hypertension) (Acute) COPD (chronic obstructive pulmonary disease) (Acute) Smoker (Acute) Anxiety (Acute) Family history of colon cancer (Acute) Past Medical History Medical History CAD (coronary artery disease) Supplemental oxygen dependent Hx of cancer of uterus Salmonella Hypoxemia History of uterine cancer Type 2 diabetes mellitus, with long-term current use of insulin COPD (chronic obstructive pulmonary disease) Smoker PVD (peripheral vascular disease) Osteoporosis Family history of colon cancer Anxiety Dyslipidemia HTN (hypertension) Family History Family History Brother Colon cancer Family history of problems with anesthesia: No Surgical History Surgical History History of lung surgery History of bunionectomy of left great toe History of colonoscopy (06/13/24) History of pubovaginal sling History of hysterectomy History of Problems with Anesthesia: No Social History Social History Household Members: Family Housing: House Are you a primary patient care secretary to a significant other at home: No Do you presently have visiting nurse or other home services: No Alcohol intake: never Patient Tobacco Use Status: Former Tobacco user Tobacco use type: Cigarette Cigarettes Per Day: 15 Smoked in Last 30 Days: No Use of substances other than those prescribed or required for medical reasons: No Have you been hit, kicked, punched, or otherwise hurt by someone within the past year? If so, by whom?: No Are you DNR?: No Advance Directives: No Advance Directives Information Provided: Yes Advance Directives on File: No Recently lost weight without trying: No Nutrition Risks: No Nutritional Risk service: No Meds Allergies Allergy/AdvReac Type Severity Reaction Status Date / Time ciprofloxacin [From CIPRO] Allergy Severe ANAPHYLAXIS Verified 06/13/24 10:45 Active Medications: Current Medications Acetaminophen (Acetaminophen 325 Mg Tablet) 650 mg PO ONCE PRN PRN Reason: Pain, Mild (Pain Scale 1-3) Stop: 07/28/24 19:56 Albuterol Sulfate (Albuterol Sulfate (0.083%) 2.5 Mg/3 Ml Vial.Neb) 2.5 mg INH MARK ONCE PRN PRN Reason: Shortness of Breath/Wheezing Fentanyl (Fentanyl Citrate/Pf 100 Mcg/2 Ml Vial) 50 mcg IVPUSH Q5M PRN PRN Reason: Pain, Moderate to Severe (Pain Scale 4-10) Stop: 07/28/24 19:56 Haloperidol Lactate (Haloperidol Lactate 5 Mg/Ml Vial) 0.5 mg IVPUSH ONCE PRN PRN Reason: intractable nausea Stop: 07/28/24 19:56 Lactated Ringer's (Lr) 1,000 mls @ 100 mls/hr IVCONT .Q10H NANCY Last Admin: 07/28/24 13:30 Dose: 100 mls/hr Naloxone HCl (Naloxone Hcl 0.4 Mg/Ml Vial) 0.04 mg IVPUSH Q5M PRN PRN Reason: Excessive sedation or RR < 8 Oxycodone HCl (Oxycodone Hcl Immed Release 5 Mg Tablet) 5 mg PO ONCE PRN PRN Reason: Pain, Moderate(Pain Scale 4-6) if no IV Access Stop: 07/28/24 19:56 Home Medications ?Medication ?Instructions ?Recorded ?Confirmed ?Last Taken ?Type atorvastatin 40 mg tablet 40 mg PO BEDTIME 08/29/21 07/15/24 02/09/24 History calcium 600 mg (as 1 tab PO BEDTIME 08/29/21 07/28/24 07/28/24 History carbonate)-vitamin D3 10 mcg (400 unit) tablet cilostazol 50 mg tablet 50 mg PO BID 08/29/21 07/15/24 02/09/24 History fluoxetine 40 mg capsule 40 mg PO BEDTIME 08/29/21 07/28/24 07/28/24 History gabapentin 300 mg capsule 300 mg PO DAILY 08/29/21 07/15/24 02/09/24 History hydralazine 25 mg tablet 25 mg PO BID 08/29/21 07/15/24 02/09/24 History insulin syringe-needle U-100 1/2 #10 ea 08/29/21 06/13/24 Unknown History mL 31 gauge x 15/64 (BD Veo Insulin Syringe Ultra-Fine) lisinopril 40 mg tablet 40 mg PO DAILY 08/29/21 07/28/24 07/28/24 History metformin 1,000 mg tablet 1,000 mg PO BID 08/29/21 07/15/24 02/09/24 History fluticasone 250 mcg-salmeterol 50 1 inh inhalation BID 05/14/23 07/15/24 02/09/24 History mcg/dose blistr powdr for inhalation umeclidinium 62.5 mcg/actuation 1 inh inhalation DAILY 05/14/23 07/15/24 02/09/24 History blister powder for inhalation (Incruse Ellipta) insulin glargine 100 unit/mL 15 unit subcut BEDTIME 12/02/23 07/15/24 02/09/24 History subcutaneous solution (Lantus U-100 Insulin) sitagliptin phosphate 100 mg 100 mg PO DAILY 12/02/23 07/15/24 06/10/24 History tablet (Januvia) magnesium 200 mg tablet 200 mg PO DAILY 02/10/24 07/15/24 02/09/24 History metoprolol tartrate 100 mg tablet 50 mg PO BID 06/07/24 07/28/24 07/28/24 History verapamil 300 mg capsule 24hr 300 mg PO BEDTIME 07/15/24 07/15/[address],ext.release Exam Height,Weight and Vital Signs: Height 5 ft 4 in Weight 82.554 kg Last Vital Signs Temp 97.5 F 07/28/24 13:30 Pulse 59 07/28/24 13:30 Resp 14 07/28/24 13:30 BP 164/65 H 07/28/24 13:30 Pulse Ox 97 07/28/24 13:30 O2 Del Method Room Air 07/28/24 13:30 Pertinent Lab Results Pertinent Lab Results: Laboratory Tests 07/28/24 13:30 POC Glucose 186 H Airway Mallampati Class: II TM Dist: >3cm Neck ROM: Limited Heart: afib Lungs: cta Assessment and Plan Assessment Anesthesia Assessment: Anesthesia Plan Discussed Final Anesthetic Review Family History of Problems with Anesthesia: No History of Problems with Anesthesia: No NPO: Yes ASA Class: III Final Preanesthetic Review: No Changes in Pt Med Stat, Meds/Allgs Chart Reviewed, Consent Obtained/Reviewed and Anes Risks/Benef Reviewed Patient Risk: Intermediate Procedure Risk: Low Anesthetic Plan Anesthetic Plan: MAC: Disposition: Standard PACU
[2024-07-28 14:48] VITALS: BP 104/59; PULSE 70; RESP 12; TEMP 36.1; O2SAT 97
--- NOTE | 2024-07-28 14:51 | P.OP_ITS ---
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 Findings: [] Patient brought to the operating room, placed on operative table supine position, after an adequate level of MAC anesthesia was induced, patient was placed in left lateral decubitus position. The right Posterior neck was prepped and draped in usual sterile fashion. Using a transverse incision encompassing an elliptical incision from the prior scar, this carried down through skin, subcutaneous tissue, were superior and inferior skin flaps were developed and circumferentially dissection using blunt and Bovie dissection of a multilobulated large lipoma with dimensions as described above was uneventfully performed. Specimen sent to pathology. Wound was irrigated, secured hemostasis, and closed using interrupted inverted dermal 3-0 Vicryl sutures followed by Steri-Strips and sterile dressings. Wound was infiltrated the be ginning at the end of the case with 0.5% Marcaine/1% lidocaine. Sponge, needle, and instrument counts reported correct. Patient tolerated the procedure well and emerged from anesthesia stable condition. EBL minimal
[2024-07-28 15:03] VITALS: BP 145/78; PULSE 66; RESP 16; O2SAT 95
[2024-07-28 15:18] VITALS: BP 165/76; PULSE 59; RESP 18; TEMP 36.9; O2SAT 97
== END 2024-07-28 16:06 | disposition home or self-care (01) ==
PROVIDERS: PCP Registered Nurse; Visit Provider Surgery
PROC: (CPT 11426; principal; 2024-07-28 14:20)
DX: L72.8 Other follicular cysts of the skin and subcutaneous tissue (principal); E11.9 Type 2 diabetes mellitus without complications; J44.9 Chronic obstructive pulmonary disease, unspecified; I10 Essential (primary) hypertension; E78.5 Hyperlipidemia, unspecified; F41.9 Anxiety disorder, unspecified; I73.9 Peripheral vascular disease, unspecified; M81.0 Age-related osteoporosis without current pathological fracture; Z85.42 Personal history of malignant neoplasm of other parts of uterus; Z90.710 Acquired absence of both cervix and uterus; Z79.01 Long term (current) use of anticoagulants; Z79.4 Long term (current) use of insulin; Z79.84 Long term (current) use of oral hypoglycemic drugs; Z79.899 Other long term (current) drug therapy; Z88.1 Allergy status to other antibiotic agents; Z98.890 Other specified postprocedural states; Z87.891 Personal history of nicotine dependence
CPT/HCPCS: 11426; 82947; 88304; 88305; J0131; J0690; J2003; J2704; J2795; J3010

== ENCOUNTER → 2024-07-28 11:36 | Outpatient (BNV) | payer OTHER, SELFPAY | PROVIDERS: PCP Registered Nurse; Visit Provider Surgery | DX: D17.0 Benign lipomatous neoplasm of skin and subcutaneous tissue of head, face and neck (principal) | CPT/HCPCS: 21552 ==

== ENCOUNTER 2024-08-09 10:55 | Outpatient (AMB) | payer OTHER, SELFPAY ==
--- NOTE | 2024-08-09 10:57 | MHC.OFFVIS ---
Intake Visit Reasons: s/p WLE post neck mass Intake Note: Patient here s/p wide local excision right posterior neck recurrent lipoma. Reports incision healing well. Patient c/o: no concerns. Denies inflammation, redness, pain. WLE right posterior neck: 07-28-2024 Glass Presser Required: No Accompanied by: daughter Allergies ciprofloxacin [From CIPRO] Allergy (Severe, Verified 08/09/24 11:00) ANAPHYLAXIS HPI Comments Details: Patient presents with a daughter. She has no wound issues or complaints. Pathology was reviewed with them. Benign. [facility] Medical History CAD (coronary artery disease) Supplemental oxygen dependent Hx of cancer of uterus Salmonella Hypoxemia History of uterine cancer Type 2 diabetes mellitus, with long-term current use of insulin COPD (chronic obstructive pulmonary disease) Smoker PVD (peripheral vascular disease) Osteoporosis Family history of colon cancer Anxiety Dyslipidemia HTN (hypertension) Surgical History (Updated 08/09/24 @ 11:10 by Kd Witt MD) Hx of surgical procedure (07/28/24) History of lung surgery History of bunionectomy of left great toe History of colonoscopy (06/13/24) History of pubovaginal sling History of hysterectomy Family History Brother Colon cancer Social History Household Members: Family Housing: House Are you a primary neonatal intensive care unit nurse to a significant other at home: No Do you presently have visiting nurse or other home services: No Alcohol intake: never Patient Tobacco Use Status: Former Tobacco user Tobacco use type: Cigarette Cigarettes Per Day: 15 service: No Physical Exam Neck Other: Posterior neck incision clean dry and intact healing very well Assessment & Plan Assessment & Plan (1) Visit for wound check: Code(s): Z51.89 - Encounter for other specified aftercare Category: Surgical Plan They have been given local instructions, patient otherwise follow-up p.r.n.. All questions answered. Coding Level of Care Code Global (13737) Diagnoses Visit for wound check Z51.89
--- OUTSIDE RECORDS SUMMARY | 2024-08-09 11:51 | XMS_ITS | Encounter Summary ---
Author Organization [employer] Address [address] [place] [address] Care Team Providers Care Survey Cad Technician Name Role Phone Anabelle Obrien Primary Care Provider [phone] Orlando Perkins MD Unavailable [phone] Pardeep Floyd Unavailable Beau Sterling MD Unavailable Nora Valdez Unavailable Encounter Details Date Type Department Care Team (Late st Contact Info) Description 05/21/2023 Abstract [facility] MEDICINE [address], [place] [id number] Syl Robert Social History Tobacco Use Types Packs/Day Years Used Date Smoking Tobacco: Former Cigarettes Smokeless Tobacco: Never Alcohol Use Standard Drinks/Week Comments Never 0 (1 standard drink = 0.6 oz pur e alcohol) Depression Answer Date Recorded Patient Health Questionnaire-9 Score 0 04/02/2023 Housing Stability Answer Date Recorded What is your housing situation today? I have jennifer kent 04/22/[address] you li ve. Do you have problems with any of the following? None of the above 04/22/2023 Food Insecurity Answer Date Recorded Within the past 12 months, y ou worried that your food would run out before you got money to buy more: Never True 04/22/2023 Within the past 12 months,th e food you bought just didn't last and you didn't have enough money to get more: Never True Transportation Answer Date Recorded In the past 12 months, has l ack of transportation kept you from medical appts, meetings, work or from getting things needed for daily living? No 04/22/2023 Utilities Answer Date Recorded In the past 12 months, has t he electric, gas, oil or water company threatened to shut off services in your home? No 04/22/2023 Depression Answer Date Recorded Patient Health Questionnaire-2 Score 0 04/02/2023 Comments Unknown Sex and Gender Information Value Date Recorded Sex Assigned at Female 05/05/2022 10:27 AM EDT Legal Sex Female 10:27 AM EDT Gender Identity Female 05/05/2022 10:27 AM EDT Sexual Orientation Choose not to disclose 2021 10:27 AM EDT documented as of this encounter Plan of Treatment Not on file documented as of this encounter Procedures Procedure Name Priority Date/Time Associated Diagnosis Comments COLONOSCOPY Routine 11/29/2014 documented in this encounter Results * Colonoscopy (11/29/2014) Colonoscopy Normal Normal Narrative Syl Robert - 11/29/2014 Repeat in 5 years us Historical Provider HEALTH MAINTENANCE Final Result documented in this encounter Visit Diagnoses Not on filedocumented in this encounter Additional Health Concerns Assessment Noted Time PHQ-9 Depression Total Score: 0 04/02/20 23 10:05 AM EDT documented as of this encounter Care Teams Survey Cad Technician Relationship Specialty Start Date End Date Anabelle Obrien FNP [address] [place] [address] PCP - General Family Medicine 06/02/22 Orlando Perkins MD [address] [place] [address] Cardiology 07/14/24 Pardeep Floyd [address] [place] [id number] Pulmonary Disease 07/14/24 Beau Sterling MD [address] [place] [address] Nephrology 07/14/24 Nora Valdez [address] [place] [address] Drive [address] [place] [address] Gastroenterology 07/14/24 documented as of this encounter
--- OUTSIDE RECORDS SUMMARY | 2024-08-09 11:51 | XMS_ITS | Data Portability ---
Author Organization [employer] [facility], [place] in - [facility] Address [address] [place] [id number] Care Team Providers Care Fowl Blood Tester Name Role Phone HIM CCA OTHER Assessment Encounter Date Assessment Date Assessment LastModified by Organization Details LastModified Time 12/21/2023 12/21/2023 I provided real -time medical direction via phone for this encounter, and was available for additional phone based assistance as needed. I have reviewed and agree with the Assessment and Plan as documented by the Export Freight Specialist. We discussed the diagnostic uncertainty of home visits and the risk associated with this. Diabetics can have silent ischemia, we have no old records nor does patient have access to old EKG so her EKG is considered ischemic until proven otherwise. Advised need for evaluation for cardiac/PIPE FITTER MAINTENANCE event in the ER emergently the patient/family given the opportunity to ask questions. Patient understood rationale for going to the ER via EMS/report called to [place] [facility] spoke to ED physician aaron Not available 12/21/2023 15:04:08 Plan of Treatment Reminders Order Date Submit Date Provider Last Modified By Organization Details Last Modified Time Details Appointments None recorded. Lab rapid SARS CoV 2 Ag, QL IA, respiratory specimen 2023 024 [email or web address] 0 [facility], [address] [place] [address], [phone], 4 15:07:34 rapid flu (A+B) 2023 024 [email or web address], [phone], 4 15:07:32 BMP, serum or plasma 2023 024 [email or web address] [address], [address], 4 15:07:07 Referral None recorded. Procedures None recorded. Surgeries None recorded. Imaging electrocard iogram 2023 024 [email or web address] 0 Main [facility], [address] [place] [address], [phone], 4 15:07:05 Medication Orders sodium chloride 0.9 % intravenous solution 2023 024 [email or web address] 0 Not available 4 15:07:06 Patient TargetsNo targets recorded. Patient InstructionsNo instructions recorded. Reason for Referral None Reported. Results Created Date Observation Date Name Description Value Unit Range Abnormal Flag Note LastModifiedBy Organization Detail LastModifiedTime 12/21/19 24 12/21/2023 rapid flu (A+B) Flu negati ve Not Available Main - [facility] ed [address] [place] [address], [phone], 12/21/2023 15:07:14 12/21/19 24 12/21/2023 rapid SARS CoV 2 Ag, QL IA, respi rator y speci men rapid SARS CoV 2 Ag, QL IA, respiratory specimen negati ve Not Available Main - [facility] ed [address] [place] [address], [phone], 12/21/2023 15:07:12 12/21/19 24 12/21/2023 BMP, serum or plasm a GLU 363 Not Available Main - [facility] [address] [place] [address], [phone], 12/21/2023 14:57:23 12/21/19 24 12/21/2023 elect aldairar diogr am No observ ation record ed. [email or web address] [facility] - [address], [phone], 12/21/2023 15:07:00 Result Notes None recorded. Procedures Surgical History None recorded. Imaging Results Imaging Date Name Status LastModified by Organization Details LastModified Time 12/21/2023 electrocardiogram completed Main - [facility] [address] [place] [address] [place], [phone], 12/21/2023 15:07:00 Procedure Notes None recorded. Medical Equipment None Reported. Allergies Allergen ID Allergen Name Allergen Category Reaction Reaction Severity Criticality Documentation Date Start Date Code Code System Note Provider Name and Address Organization Details Recorded Time 5246 ciproflox acin medicatio n Not available Not available Not available 12/21/2023 2551 RxNorm Not Available [facility] - production 4 03:37:52 Medications Name Sig Start Date Stop Date Status Note LastModified by Organization Details LastModified Time medbox status USE DIRECTED active Not Available Not Available No t Available fluoxetine 40 mg capsule TAKE 1 CAPSULE BY MOUTH EVERY MORNING active Not Available Not Available No t Available atorvastatin 40 mg tablet TAKE 1 TABLET BY MOUTH EVERY EVENING active Not Available Not Available No t Available fluticasone 250 mcg-salmeter ol 50 mcg/dose blistr powdr for inhalation INHALE 1 PUFF BY MOUTH TWICE DAILY. RINSE MOUTH AFTER USING. active Not Available Not Available No t Available nicotine 14 mg/24 hr daily transdermal patch APPLY 1 PATCH TOPICALLY TO THE SKIN IN THE MORNING DO NOT SMOKE WHILE USING PATCH FOR CRAVINGS de cigarrillos active Not Available Not Available Not Available cilostazol 50 mg tablet TAKE 1/2 TABLET BY MOUTH EVERY MORNING active Not Available Not Available No t Available alendronate 70 mg tablet take 1 tablet once a week with 6 to 8 oz of water 30 min before first food of day. do not lie down for 30 minutes active Not Available Not Available No t Available Lantus U-100 Insulin 100 unit/mL subcutaneous solution INJECT 10 UNITS SUBCUTANEOU SLY AT BEDTIME active Not Available Not Available No t Available cyanocobalam in (vit B-12) 1,000 mcg tablet TAKE 1 TABLET BY MOUTH EVERY EVENING 3 TIMES A WEEK ON THURSDAY, THURSDAY AND THURSDAY active Not Available Not Available N ot Available hydralazine 25 mg tablet TAKE 1 TABLET BY MOUTH TWICE DAILY IN THE MORNING AND IN THE EVENING WITH FOOD active Not Available Not Available No t Available aspirin 81 mg tablet,delay ed release TAKE 1 TABLET BY MOUTH EVERY MORNING active Not Available Not Available No t Available verapamil 120 mg tablet TAKE 1 TABLET BY MOUTH EVERY MORNING active Not Available Not Available No t Available magnesium oxide 400 mg (241.3 mg magnesium) tablet TAKE 1 TABLET BY MOUTH TWICE DAILY FOR 2 WEEKS active Not Available Not Available No t Available OneTouch Ultra Test strips TEST BLOOD SUGAR FOUR TIMES DAILY active Not Available Not Available Not Available metformin 1,000 mg tablet TAKE 1 TABLET BY MOUTH TWICE DAILY IN THE MORNING AND IN THE EVENING WITH FOOD active Not Available Not Available No t Available metoprolol tartrate 50 mg tablet TAKE 1 AND 1/2 TABLETS BY MOUTH TWICE DAILY IN THE MORNING AND IN THE EVENING active Not Available Not Available No t Available gabapentin 300 mg capsule TAKE 1 CAPSULE BY MOUTH AT BEDTIME active Not Available Not Available No t Available omeprazole 20 mg capsule,luis enrique yed release TAKE 1 CAPSULE BY MOUTH EVERY MORNING BEFORE MEALS active Not Available Not Available No t Available bisacodyl 5 mg tablet,delay ed release TAKE 2 TABLETS BY MOUTH ONCE AT NOON THE DAY BEFORE COLONOSCOPY active Not Available Not Available Not Available sodium chloride 0.9 % intravenous solution Inject 500 mL by intravenous route. 2023 active Not Available Not Available Not Avai lable polyethylene glycol 3350 17 gram/dose oral powder MIX WITH IN WATER AND DRINK DIRECTED BEFORE PROCEDURE active Not Available Not Available No t Available lisinopril 40 mg tablet TAKE 1 TABLET BY MOUTH EVERY MORNING active Not Available Not Available No t Available nicotine 7 mg/24 hr daily transdermal patch USE AFTER 14 mg/ DAY PATCH. APPLY 1 PATCH TOPICALLY TO THE SKIN IN THE MORNING DO NOT SMOKE WHILE USING PATCH FOR 6 WEEKS active Not Available Not Available No t Available oxycodone 5 mg tablet TAKE 1 TABLET BY MOUTH EVERY 4 HOURS NEEDED FOR PAIN (4-6 PAIN SCALE). MAY TAKE 2 TABLETS EVERY 4 HOURS NEEDED FOR SEVERE PAIN active Not Available Not Available Not Available hydroxyzine pamoate 25 mg capsule TAKE 1 CAPSULE BY MOUTH THREE TIMES DAILY NEEDED FOR ANXIETY active Not Available Not Available Not Available Fiber-Lax 625 mg tablet TAKE 1 TABLET BY MOUTH TWICE DAILY active Not Available Not Available No t Available magnesium 200 mg tablet TAKE 1 TABLET BY MOUTH TWICE DAILY FOR 5 DAYS active Not Available Not Available No t Available metoprolol tartrate 25 mg tablet TAKE 1 TABLET BY MOUTH TWICE DAILY IN THE MORNING AND IN THE EVENING WITH FOOD active Not Available Not Available No t Available Januvia 100 mg tablet TAKE 1 TABLET BY MOUTH EVERY MORNING active Not Available Not Available No t Available ferrous gluconate 324 mg (38 mg iron) tablet TAKE 1 TABLET BY MOUTH EVERY EVENING active Not Available Not Available No t Available calcium 600 mg (as carbonate)-v itamin D3 10 mcg (400 unit) tablet TAKE 1 TABLET BY MOUTH EVERY MORNING active Not Available Not Available No t Available Lantus Solostar U-100 Insulin 100 unit/mL (3 mL) subcutaneous pen INJECT 15 UNITS SUBCUTANEOU SLY AT BEDTIME active Not Available Not Available No t Available Incruse Ellipta 62.5 mcg/actuatio n powder for inhalation INHALE 1 PUFF BY MOUTH EVERY DAY AT THE SAME TIME active Not Available Not Available No t Available Pentips Pen Needle 32 gauge x USE DIRECTED TO INJECT INSULIN active Not Available Not Available No t Available BD Veo Insulin Syringe Ultra-Fine 1/2 mL 31 gauge x 15/ USE DIRECTED ONCE DAILY WITH LANTUS active Not Available Not Available Not Available OneTouch Ultra2 Meter TEST BLOOD SUGAR FOUR TIMES DAILY active Not Available Not Available Not Available OneTouch Delica Plus Lancet 33 gauge TEST BLOOD SUGAR FOUR TIMES DAILY active Not Available Not Available Not Available FreeStyle Reena 2 Sensor kit USE DIRECTED TO TEST BLOOD SUGAR. CHANGE EVERY 14 DAYS . active Not Available Not Available No t Available FreeStyle Reena 2 [place] USE DIRECTED TO TEST BLOOD SUGAR EVERY 8 HOURS active Not Available Not Available No t Available Vitals Date Recorded Body temperature Heart rate Body weight Oxygen saturation Oxygen saturation in Arterial blood by Pulse oximetry Respiratory rate Body height Systolic blood pressure Diastolic blood pressure Systolic blood pressure Diastolic blood pressure Provider Name and Address Organization Details Last Updated DateTime 4 98.9 [degF] 78 /min 27745.3 36 g 95 % 95 % 14 /min 165.1 cm 115 mm[Hg] 65 mm[Hg] 95 mm[Hg] 61 mm[Hg] Not Available [employer] 4 14:44:43 Social History None recorded. Functional Status None recorded. Mental Status None recorded. Family History Nothing Reported. Medical History No medical history recorded. Gynecological HistoryNo gynecological history recorded. Obstetrics History GPAL:G 0 P 0 0 0 0 Past Encounters Encounter ID Performer Location Encounter Start Date Encounter Closed Date Diagnosis/Indication Diagnosis SNOMED-CT Code Diagnosis ICD10 Code Diagnosis Note [id number] Rafaela Ponce MD Main - [facility] [address] [place] [phone] 12/21/2023 14:44:16 12/21/2023 23:20:59 Dizziness [id number] R42 pat has recently been seen by cardiology and had an echo, the daughter is reporting what sounds like a low EF. BMP primarily concerning for hypoglycem ia ordered 500 cc of normal saline since EF unknownWit h the dizziness although neuro exam was non-focal she could still be having a posterior circulatio n CVA which we cannot workup at home Cough 10081801 R05.9 Health Concerns Section Related Observation LastModified by Organization Detai ls LastModified Time None Recorded Concern Status LastModified by Organization Details LastModified Time None Recorded Advance Directives Directive None Recorded Payers Encounter Date Sequence Insurance Name Policy Number Policy Palcaios Covered Member ID Palacios Member ID Guarantor Name 12/21/2023 1 [facility] - DOS ON OR AFTER 2022 - DUAL ELIGIBLE - ALF OPTIONS AND ONE CARE (MEDICARE REPLACEMENT/ADV ANTAGE - HMO) Dyan aparicio [id number] Dyan cheek Notes Date Note Type Note Provider Name and Address Organization Details Recorded Time 12/21/2023 text/html CRC Nurse Triage Notes (Kristel Hirsch): Reason For Request: Pt's daughter reporting dizziness since 12/19/23, as if she might fall>symptoms have persisted since and into today>fear of the mbr experiencing a fall>daughter gave meclizine yesterday AM Chief Complaints: Syncope/Dizziness/L ightheadedness PMH: Hypertension, Heart Disease, Diabetes, Cancer Allergies: Ciprofloxacin Comments: Members daughter calling in to place a referral, member identified via name and . Member with dizziness and feeling off when sitting to standing. This started yesterday, and daughter gave her a meclizine of hers, she was discouraged from doing so in the future. Member has no history of vertigo or orthostasis. Member denies headache or vision changes, +n/v yesterday but daughter attributes it to her cough/gag reflex. Member he is eating and drinking without difficulty. Daughter would like member evaluated. Export Freight Specialist POC Test Results from Eldon Merc[facility] (14:50:20) pH: 7.42 pH units pCO2: 41.1 mmHg pO2: 45.5 mmHg Na: 137 mmol/L K: 4.3 mmol/L iCa: 1.10 mmol/L Cl: 97 mmol/L TCO2: 26.5 mEq/L Hct: 33 % Hb: 11.2 g/dL Glu: 363 mg/dL Lac: 2.5 mmol/L Cr: 0.9 mg/dL BUN: 20 mg/dL A Export Freight Specialist POC Test Results from Eldon Mercado - ALS Rapid COVID antigen (15:09:19) COVID: - Rapid influenza antigen (15:09:20) Flu: - ................... ................... ................... ................... ................... ................... ................... ........ Export Freight Specialist Note From Rogelio Eldon: Pt reports dizziness with standing/movement since Thursday. Pt sts she has had a dry cough since Thursday. Pt denies CP, SOB, MARIE, MATHIS, blurred vision, f/n/v/d. Pt is alert, NAD. Orthostatic BP, VS otherwise stable. Afebrile. Non focal neuro exam. Lungs CTA. Benign ABD exam. No LE edema. Rapid covid and flu negative. EKG and labs uploaded. [facility] [place] be [place] to the ED. 911 initiated for transport to [facility]. 500 cc of normal saline administered prior to transport. SBAR to [facility]. ................... ................... ................... ................... ................... ................... ................... ........ Disposition: Fulfilled Rafaela Ponce MD [address] [place] [address],[address] [facility], [place], [address], ROSY PERSON 12/21/2023 16:55:43 OBGyn Episode No OBEpisode recorded.
--- OUTSIDE RECORDS SUMMARY | 2024-08-09 11:51 | XMS_ITS | Encounter Summary ---
Author Organization [employer] Address [address] [place] [address] Care Team Providers Care Broiler Manager Name Role Phone Anabelle Obrien Primary Care Provider [phone] Orlando Perkins MD Unavailable [phone] Pardeep Floyd Unavailable Beau Sterling MD Unavailable Nora Valdez Unavailable Encounter Details Date Type Department Care Team (Late st Contact Info) Description 07/28/2024 Orders Only GENERIC EXTERNAL DATA DEPARTMENT Provider, Generic External Data Social History Tobacco Use Types Packs/Day Years Used Date Smoking Tobacco: Former Cigarettes Passive Smoke Exposure: Past Smokeless Tobacco: Never Alcohol Use Standard Drinks/Week Comments Never 0 (1 standard drink = 0.6 oz pur e alcohol) Depression Answer Date Recorded Patient Health Questionnaire-9 Score 4 07/14/2024 Patient Health Questionnaire-9 Score 4 07/14/2024 Last PHQ-9: Questionnaire Data Not on file 0 07/14/2024 Housing Stability Answer Date Recorded What is your housing situation today? I have jennifergita kent 04/22/[address] you [...] Date Recorded Patient Health Questionnaire-2 Score 0 07/14/2024 Comments Unknown Sex and Gender Information Value [...] Procedure Name Priority Date/Time Associated Diagnosis Comments GROSS AND MICROSCOPIC LEVEL 3 Routine 07/28/2024 2:49 PM EST GLUCOSE, WHOLE BLOOD Routine 07/28/2024 1:30 PM EST documented in this encounter Results * Gross and Microscopic Level 3 (07/28/2024 2:49 PM EST) 07/28/2024 2:49 PM EST 07/28/2024 3:05 PM EST [facility] - 08/04/2024 12:05 PM EST ----- ------- Name: Tete Ayon ?Age/Sex: 69/F ? : 1955 Unit#: [id number] ?? Attend Dr: Kd Witt MD ?Re07/28/24 ?Status: DEP SDC ? Location: HO.SSS ?Disch: ? ----- ------- SPEC : [id number] ?RECD: 07/28/24 ? STATUS: ??SOUT ? REQ NUM: [id number] ? SHANT: 07/28/24-3109 ? SUBM DR: Kd Witt MD ? ENTERED: ??07/28/24 ?SP TYPE: Surgical ? OTHR DR: Anabelle Obrien [employer] ? ORDERED: ??Gross Micro L3 ? Diagnosis ?? Skin, posterior neck mass, excision: ?? 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 ?? -Dermal scar. ? 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 The previous ?? 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 Some authors consider these to be a morphologic spectrum of the same entity. ?Clinical History Posterior neck mass ?Microscopic Description Microscopic sections reviewed. ? Material Received ?? Posterior neck mass ? Gross Description Received in formalin labeled ?posterior neck mass? is a 5.0 x 2.5 x 2.5 cm rubbery, firm, zhao-yellow multilobular mass of adipose tissue with an attached 4.0 x 2.2 cm ellipse of puckered and retracted, focally erythematous zhao-pink skin with an eccentric 0.3 cm pale, zhao-white papule located 0.4 cm from the nearest peripheral margin. ??The margins are inked and the specimen is serially sectioned to reveal a subjacent cyst containing copious pasty keratotic zhao-white material measuring 4.5 x 2.0 x 2.0 surrounded by unremarkable dermal and subcutaneous tissues. ??There is a suggestion of a solid component versus adjacent chalky and opaque fat towards 1 end of the lesion, otherwise, the cyst wall measures 0.1 cm in thickness. ??The remaining dermal and subcutaneous tissues are unremarkable. ??No fleshy, hemorrhagic or necrotic foci are identified other than the adjacent fat necrosis. Escalator Operator sections are submitted in cassettes [id number]. CEDS This case was reviewed intradepartmentally, dermatopathology. ? CONTINUED ON NEXT PAGE ----- ------- Name: Tete Ayon ?Age/Sex: 69/F ? : 1955 Unit#: [id number] ?? Attend Dr: Kd Witt MD ?Re07/28/24 ?Status: DEP SDC ? Location: HO.SSS ?Disch: ? ----- ------- SPEC : [id number] ?RECD: 07/28/24 ? STATUS: ??SOUT ? REQ NUM: [id number] ? SHANT: 07/28/243 ? SUBM DR: Kd Witt MD ? ENTERED: ??07/28/24 ?SP TYPE: Surgical ? OTHR DR: Anabelle Obrien ? ORDERED: ??Gross Micro L3 ? Copies To: ?? Anabelle Obrien ?? [address] ?? [place] [address] ?? [phone] ?? Kd Witt MD ?? [facility] ?? [address] ?? [place] [address] ?? [phone] ?? [email or web address] ----- ------- Signed (signature on file) Cherie Hugo 08/04/24 1205 ? ----- ------- ? END OF REPORT ? us Generic External Data Provider LAB CYTOLOGY ORDE RABLES Final Result Performing Organization Address [facility]/ZIP Co de Phone Number [facility] [address] [place] [address] [phone] * (ABNORMAL) Glucose, Whole Blood (07/28/2024 1:30 PM EST) Glucose, Whole Blood 186(H) 60 - 115 mg/dL [facility] Comment:METER #: [id number] 07/28/2024 1:30 PM EST 07/28/2024 1:35 PM EST Generic External Data Provider LAB BLOOD ORDERAB LES Final Result Performing Organization Address [facility]/ZIP Co de Phone Number [facility] [address] [place] [address] [phone] documented in this encounter Visit Diagnoses Not on filedocumented in this encounter Additional Health Concerns Assessment Noted Time PHQ-9 Depression Total Score: 4 07/14/19 25 4:51 PM EST documented as of this encounter Care Teams Broiler Manager Relationship Specialty Start Date End Date Anabelle Obrien FNP [address] [place] [address] PCP - General Family Medicine 06/02/22 Orlando Perkins MD [address] [place] [address] Cardiology 07/14/24 Pardeep Floyd [address] [place] [address] Pulmonary Disease 07/14/24 Beau Sterling MD [address] [place] [address] Nephrology 07/14/24 Nora Valdez [address] [place] [address] Gastroenterology 07/14/24 documented as of this encounter
--- OUTSIDE RECORDS SUMMARY | 2024-08-09 11:51 | XMS_ITS | Encounter Summary ---
Author Organization [employer] Address [address] [place] [address] Care Team Providers Care Washhouse Hand Name Role Phone Anabelle Obrien Primary Care Provider [phone] Orlando Perkins MD Unavailable [phone] Pardeep Floyd Unavailable Beau Sterling MD Unavailable Nora Valdez Unavailable Reason for Visit * Reason Comments Med Refill Encounter Details Date Type Department Care Team (Late st Contact Info) Description 01/18/2024 Refill [facility] [address] [place], [place] [phone] Anabelle Obrien FNP [address] [place], [place] [phone] Type 2 diabetes mellitus with hyperglycemia, without long-term current use of insulin ([facility]) (Primary Dx) Social History Tobacco Use Types Packs/Day Years [...] on file documented as of this encounter Visit Diagnoses Diagnosis Type 2 diabetes mellitus with hyperglycemia, without long-term current use of insulin ([facility])- Primary documented in this encounter Additional Health Concerns Assessment Noted Time PHQ-9 Depression Total Score: 0 04/02/20 23 10:05 AM EDT documented as of this encounter Care Teams Washhouse Hand Relationship Specialty Start Date End Date Anabelle Obrien FNP [address] [place] [address] PCP - General Family Medicine 06/02/22 Orlando Perkins MD [address] [place] [address] Cardiology 07/14/24 Pardeep Floyd [address] [place] [address] Pulmonary Disease 07/14/24 Beau Sterling MD [address] [address] Nephrology 07/14/24 Nora Valdez [address] [place] [address] Gastroenterology 07/14/24 documented as of this encounter
--- OUTSIDE RECORDS SUMMARY | 2024-08-09 11:51 | XMS_ITS | Encounter Summary ---
Author Organization [facility] Address [address] [place] [address] Care Team Providers Care Animated Cartoons Painter Name Role Phone Anabelle Obrien Primary Care Provider [phone] Orlando Perkins MD Unavailable [phone] Pardeep Floyd Unavailable Beau Sterling MD Unavailable Nora Valdez Unavailable Encounter Details Date Type Department Care Team (Late st Contact Info) Description 07/11/2024 1:45 PM EST Office Visit [facility] [address] [place], [place] [id number] Anabelle Obrien FNP [address] [place], [place] [id number] Type 2 diabetes mellitus with hyperglycemia, without long-term current use of insulin ([facility]) (Primary Dx); Essential hypertension; Chronic obstructive pulmonary disease, unspecified COPD type (CMS/HCC); Paroxysmal atrial fibrillation (CMS/HCC); Hypomagnesemia; Healthcare maintenance; Cerebral cavernoma; Gastroesophageal reflux disease, unspecified whether esophagitis present Social History Tobacco Use Types Packs/Day Years [...] AM EDT documented as of this encounter Last Filed Vital Signs Vital Sign Reading Time Taken Comments Blood Pressure 144/72 07/11/2024 2:18 PM EST Pulse 75 07/11/2024 2:11 PM EST Temperature 36.6 ??C (97.8 ??F) 07/11/2024 2:11 PM ES T Respiratory Rate 20 07/11/2024 2:11 PM EST Oxygen Saturation 92% 07/11/2024 2:11 PM EST Inhaled Oxygen Concentration - - Weight 81.6 kg (180 lb) 07/11/2024 2:11 PM EST Height 162.6 cm (5' 4 ) 07/11/2024 2:11 PM EST Body Mass Index 30.9 07/11/2024 2:11 PM EST documented in this encounter Progress Notes * Anabelle Obrien, DEMETRICE - 07/11/2024 1:45 PM EST Subjective: Tete Holder is a 69 y.o. female w/ PMH lumbar radiculopathy, lung cancer, hypertension,COPD, Afib, T2DM, and HLD who presents to the office for a follow up visit. Interim History: - Last PCP visit 04/11/24 - Referred to Neuro for chronic left sided head pressure/discomfort x a few months. MRI findings demonstrated cavernoma. Has not yet heard regarding referral. Message sent to referrals team during appt. - Followed with multiple specialists including Pulm for COPD, completed 6-minute walk test and determined to need 2 L oxygen per minute during physical activity. Consult with [place] [facility] and metoprolol was increased to 100 mg twice daily given degree of atrial ectopy. Also completed colonoscopy aswell as follow-up with nephrology for hypomagnesemia. HPI: Ms. Segovia reports that her symptoms have been relatively stable since our last appointment. Reviewed that her A1c increased from 9.9 in February 22 to 10.2 today. She attributes this mostly torecent candies and sweets over the holidays. Has been consistent with her medications. Reports fasting blood sugar readings typically around the 160s. Denies any polyuria polydipsia or polyphasia. Review of Systems Constitutional: Negative for chills and fever. Cardiovascular: Negative for chest pain and palpitations. Gastrointestinal: Negative for vomiting. Endocrine: Negative for polydipsia, polyphagia and polyuria. Neurological: Positive for headaches. Allergies Allergen Reactions Ciprofloxacin Visit Vitals BP (!) 144/72 (BP Location: Right arm, Patient Position: Sitting, BP Cuff Size: Adult) Pulse 75 Temp 97.8 ??F (36.6 ??C) (Oral) Resp 20 Ht 5' 4 (1.626 m) Wt 180 lb (81.6 kg) SpO2 92% BMI 30.90 kg/m?? Smoking Status Former BSA 1.92 m?? Physical Exam Constitutional: Appearance: Normal appearance. HENT: Head: Atraumatic. Right Ear: External ear normal. Left Ear: External ear normal. Cardiovascular: Rate and Rhythm: Normal rate and regular rhythm. Comments: Rate regular Pulmonary: Effort: Pulmonary effort is normal. Breath sounds: Normal breath sounds. Neurological: Mental Status: She is alert and oriented to person, place, and time. Psychiatric: Mood and Affect: Mood normal. Behavior: Behavior normal. Assessment/Plan: Problem List Items Addressed This Visit Respiratory Chronic obstructive lung disease ([facility]/HCC) Overview Following with [facility] Pulm - Dr. Floyd Continues with Advair 500-50 BID, Ellipta daily, proair PRN. Reports breathing well controlled on current regimen. May use supplemental oxygen: 2L/min if doing physical activity or exerting herself (orders through [facility] Pul) (6 min walk test Apr 2024) Circulatory Essential hypertension Current Assessment & Plan Elevated in office, but well-controlled per home readings. Following closely with Cards. Followed by Dr. Perkins Jul 2023: Nuclear stress test. Impression: probably abnormal. Possible artifact, normal LV functionwith EF 52% resting, 48% with stress December 2023: Echo with EF 45-50%. Aortic valve mildly calcified Continues on the following med regimen: Metoprolol 100mg BID Lisinopril 40mg daily Hydralazine 25mg BID Relevant Medications metoprolol tartrate (Lopressor) 100 MG tablet Paroxysmal atrial fibrillation ([facility]) Current Assessment & Plan Following with [facility] - Dr. Perkins Previous medication: verapamil 120mg in the AM Afib during hospitalization in Feb 2024 - possibly triggered by diarrhea and electrolyte imbalance Continues on Eliquis 5mg BID and metoprolol 100mg BID Relevant Medications metoprolol tartrate (Lopressor) 100 MG tablet Cerebral cavernoma Overview MRI w/o contrast head completed Apr 2024 demonstrated: Cavernoma/ cavernous angioma, left frontal white matter. No acute stroke/nonhemorrhagic ischemia or acute brain abnormality. Neurology referral placed 05/04/24 for further eval Current Assessment & Plan Continues with intermittent left sided MATHIS. Initial consult with neuro pending. Endocrine/Metabolic Type 2 diabetes mellitus with hyperglycemia, without long-term current use of insulin ([facility]) - Primary Overview Lab Results Component Value Date HGBA1C 9.9 (A) 03/04/2024 HGBA1C 8.9 (A) 12/28/2023 HGBA1C 7.9 (A) 09/21/2023 HGBA1C 9.2 (H) 04/23/2023 HGBA1C 8.4 (H) 07/17/2020 A1c: (Target </= 8.0), above goal Lipids: TC 149, LDL 79, HDL 49, TG 94 on Apr 2023 Microalbumin/Cr:Alb: Apr 2023 31.8 Eye exam: last January 2023 Dental: Discuss at follow up TDap/Td: last 08/10/2014 ACEi/ARB: yes Statin: yes CGM order placed: 05/13/23 Current Assessment & Plan Does not desire med changes at this time. Cont with the following regimen, and encouraged to increase lifestyle interventions. Plan to decrease sweets/candies and increase water intake. Continues with the following medication regimen: Metformin 1000mg BID Januvia 100mg daily Lantus 15 units subcutaneous at bedtime Relevant Orders POCT Glucose (Completed) POCT HGB A1C (Completed) POCT Urinalysis (Completed) Other Healthcare maintenance Overview Mammo: BIRADS 1 on 01/13/24 OPH: January 2023 w/ Dr. Allison at [facility]. (+) proliferative diabetic retinopathy. Plan for follow up in 1 year. Colonoscopy: 06/13/24 at [facility]. 1 polyp removed. Repeat in 5 years. Hypomagnesemia Overview Followed by PCP starting around May 2023. Persistently low despite repleting w/ mag supplement. Referred to Nephrology 09/15/23: [facility] - Dr. Beau Sterling. 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 Discontinued PPI, and ordered additional lab work Continue magnesium 200mg daily Current Assessment & Plan Last consult Jun 2024. Cont as above. Other Visit Diagnoses Gastroesophageal reflux disease, unspecified whether esophagitis present - Advised to avoid PPI due to hypomagnesemia - Plan to start famotidine twice daily as needed - Follow-up if symptoms persist Relevant Medications famotidine (Pepcid) 20 MG tablet Follow up: per recall, sooner as needed Current Outpatient Medications Medication Sig Dispense Refill metoprolol tartrate (Lopressor) 100 MG tablet TAKE 1 TABLET BY MOUTH TWICE DAILY IN THE MORNING ANDIN THE EVENING alendronate (Fosamax) 70 MG tablet take 1 tablet once a week with 6 to 8 oz of water 30 min before first food of day. do not lie down for 30 minutes (Patient not taking: Reported on 03/03/2024) 12 tablet 0 atorvastatin (Lipitor) 40 MG tablet Take 1 tablet (40 mg) by mouth at bedtime. (For cholesterol) 180 tablet 3 Blood Glucose Monitoring Suppl (ONE TOUCH ULTRA 2) w/Device kit USE TO CHECK BLOOD SUGAR FOUR TIMESDAILY 1 kit 0 Blood Pressure kit Use to check blood pressure once daily and when symptomatic 1 kit 0 Calcium Carb-Cholecalciferol 600-10 MG-MCG tablet TAKE 1 TABLET BY MOUTH EVERY MORNING 90 tablet 3 cilostazol (Pletal) 50 MG tablet Take 50 mg by mouth 2 times daily. Continuous Blood Gluc Junior Assistant Manager ([facility] May[facility] Reena 2 Allison) device Scan sensor every 8 hours 1 each 0 Continuous Blood Gluc Sensor (FreeStyle Reena 2 Sensor) [facility] Apply 1 sensor every 14 days 2 each 11 cyanocobalamin (Vitamin B-12) 1000 MCG tablet TAKE 1 TABLET BY MOUTH EVERY EVENING 3 TIMES A WEEK ON THURSDAY, THURSDAY AND THURSDAY 90 tablet 1 Eliquis 5 MG tablet Take 1 tablet by mouth 2 times daily. famotidine (Pepcid) 20 MG tablet Take 1 tablet (20 mg) by mouth if needed in the morning and at bedtime for heartburn or indigestion. 60 tablet 11 FLUoxetine (PROzac) 40 MG capsule TAKE 1 CAPSULE BY MOUTH EVERY MORNING 90 capsule 3 Fluticasone-Salmeterol 250-50 MCG/ACT aerosol powder INHALE 1 PUFF BY MOUTH TWICE DAILY. RINSE MOUTH AFTER USING. 60 each 3 gabapentin (Neurontin) 300 MG capsule TAKE 1 CAPSULE BY MOUTH AT BEDTIME 90 capsule 3 hydrALAZINE (Apresoline) 25 MG tablet Take 25 mg by mouth 2 times daily. hydrOXYzine pamoate (Vistaril) 25 MG capsule TAKE 1 CAPSULE BY MOUTH THREE TIMES DAILY NEEDED FOR ANXIETY 90 capsule 3 Lancets (OneTouch Delica Plus [id number]) [facility] TEST BLOOD SUGAR FOUR TIMES DAILY 100 each 11 Lantus SoloStar 100 UNIT/ML pen INJECT 15 UNITS SUBCUTANEOUSLY AT BEDTIME 15 mL 11 lisinopril 40 MG tablet Take 40 mg by mouth in the morning. meclizine (Antivert) 25 MG tablet TAKE 1/2 TABLET BY MOUTH THREE TIMES DAILY IN THE MORNING, AT NOON, AND AT BEDTIME NEEDED FOR DIZZINESS 30 tablet 2 metFORMIN (Glucophage) 1000 MG tablet TAKE 1 TABLET BY MOUTH TWICE DAILY IN THE MORNING AND IN THE EVENING WITH FOOD 180 tablet 3 nicotine (Nicoderm CQ) 7 MG/24HR patch After completion of 14mg/day patch: Apply 1 patch on the skin (one) time each day at the same time x 6 weeks. 48 patch 0 nicotine (Nicoderm, Step 2) 14 MG/24HR patch APPLY 1 PATCH TOPICALLY TO THE SKIN IN THE MORNING DO NOT SMOKE WHILE USING PATCH OneTouch Ultra Test test strip TEST BLOOD SUGAR FOUR TIMES DAILY 100 strip 11 Pentips 32G X 4 MM misc USE DIRECTED TO INJECT INSULIN 100 each 11 SITagliptin (Januvia) 100 MG tablet TAKE 1 TABLET BY MOUTH EVERY MORNING 90 tablet 3 Umeclidinium [place] (Incruse Ellipta) 62.5 MCG/ACT aerosol powder INHALE 1 PUFF BY MOUTH EVERY DAYAT THE SAME TIME 30 each 11 No current facility-administered medications for this visit. documented in this encounter Miscellaneous Notes * Assessment & Plan Note - DEMETRICE Rodgers - 07/14/2024 4:45 PM ESTAssociated Problem(s): Type 2 diabetes mellitus with hyperglycemia, without long-term current use of insulin ([facility]) Does not desire med changes at this time. Cont with the following regimen, and encouraged to increase lifestyle interventions. Plan to decrease sweets/candies and increase water intake. Continues with the following medication regimen: Metformin 1000mg BID Januvia 100mg daily Lantus 15 units subcutaneous at bedtime * Assessment & Plan Note - DEMETRICE Rodgers - 07/14/2024 4:41 PM ESTAssociated Problem(s): Cerebral cavernoma Continues with intermittent left sided MATHIS. Initial consult with neuro pending. * Assessment & Plan Note - DEMETRICE Rodgers - 07/14/2024 4:37 PM ESTAssociated Problem(s): Hypomagnesemia Last consult Jun 2024. Cont as above. * Assessment & Plan Note - DEMETRICE Rodgers - 07/14/2024 4:35 PM ESTAssociated Problem(s): Paroxysmal atrial fibrillation (CMS/HCC) Following with [facility] - Dr. Perkins Previous medication: verapamil 120mg in the AM Afib during hospitalization in Feb 2024 - possibly triggered by diarrhea and electrolyte imbalance Continues on Eliquis 5mg BID and metoprolol 100mg BID * Assessment & Plan Note - DEMETRICE Rodgers - 07/11/2024 2:28 PM ESTAssociated Problem(s): Essential hypertension Elevated in office, but well-controlled per home readings. Following closely with Cards. Followed by Dr. Perkins Jul 2023: Nuclear stress test. Impression: probably abnormal. Possible artifact, normal LV functionwith EF 52% resting, 48% with stress December 2023: Echo with EF 45-50%. Aortic valve mildly calcified Continues on the following med regimen: Metoprolol 100mg BID Lisinopril 40mg daily Hydralazine 25mg BID documented in this encounter Plan of Treatment Not on file documented as of this encounter Procedures Procedure Name Priority Date/Time Associated Diagnosis Comments POCT URINALYSIS DIPSTICK Routine 07/11/2024 2:27 PM EST Type 2 diabetes mellitus with hyperglycemia, without long-term current use of insulin ([facility]/HCC) POCT GLYCATED HEMOGLOBIN, TOTAL Routine 07/11/2024 2:26 PM EST Type 2 diabetes mellitus with hyperglycemia, without long-term current use of insulin (CMS/HCC) POCT GLUCOSE Routine 07/11/2024 2:25 PM EST Type 2 diabetes mellitus with hyperglycemia, without long-term current use of insulin (CMS/[facility]) documented in this encounter Results * (ABNORMAL) POCT Urinalysis (07/11/2024 2:27 PM EST) Color, UA Yellow Clarity, UA Clear Glucose, UA 2+ 125++ Bilirubin, UA Negative Ketones, UA Positive Comment:Trace Spec Grav, UA 1.020 Blood, UA Negative Negative, None Detected pH, UA 7.0 Protein, UA 1+ 70+ Comment:30mg Urobilinogen, UA 0.2 Leukocytes, UA Negative Negative, Rare, Trace Nitrite, UA Negative Negative, None Detected Appearance, UA clear QC Media Lot # [id number] Lot# Expiration Date Urine 07/11/2024 2:27 PM EST [facility] POINT OF CARE TEST ENTER/EDIT ORDERABLES Final Result * (ABNORMAL) POCT HGB A1C (07/11/2024 2:26 PM EST) Hemoglobin A1C 10.2(A) 4.0 - 6.0 % QC Media Lot # [id number] Lot# Expiration Date 812,026 Blood 07/11/2024 2:26 PM EST [employer] POINT OF CARE TEST ENTER/EDIT ORDERABLES Final Result * (ABNORMAL) POCT Glucose (07/11/2024 2:25 PM EST) Glucose Blood, POC 324(A) 60 - 200 mg/dL Comment:Random QC Media Lot # [id number] Lot# Expiration Date 482,025 Blood Capillary blood specimen / Unknown 07/11/2024 2:25 PM EST [employer] [facility] POINT OF CARE TEST ENTER/EDIT ORDERABLES Final Result documented in this encounter Visit Diagnoses Diagnosis Type 2 diabetes mellitus with hyperglycemia, without long-term current use of insulin ([facility])- Primary Essential hypertension Unspecified essential hypertension Chronic obstructive pulmonary disease, unspecified COPD type (CMS/HCC) Paroxysmal atrial fibrillation (CMS/HCC) Atrial fibrillation Hypomagnesemia Disorders of magnesium metabolism Healthcare maintenance 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 Gastroesophageal reflux disease, unspecified whether esophagitis present documented in this encounter Additional Health Concerns Assessment Noted Time PHQ-9 Depression Total Score: 4 07/14/19 25 4:51 PM EST documented as of this encounter Care Teams Animated Cartoons Painter Relationship Specialty Start Date End Date Anabelle Obrien FNP [address] [place] [address] PCP - General Family Medicine 06/02/22 Orlando Perkins MD [address] [place] [address] Cardiology 07/14/24 Pardeep Floyd [address] [place] [address] Pulmonary Disease 07/14/24 Beau Sterling MD [address] [place] [address] Nephrology 07/14/24 Nora Valdez [address] [place] [address] Gastroenterology 07/14/24 documented as of this encounter
--- OUTSIDE RECORDS SUMMARY | 2024-08-09 11:51 | XMS_ITS | Clinical Summary ---
Author Organization [employer] Address [address] [place] [address] Care Team Providers Care Chronograph Operator Name Role Phone Anabelle Obrien Primary Care Provider [phone] Orlando Perkins MD Unavailable [phone] Pardeep Floyd Unavailable Beau Sterling MD Unavailable Nora Valdez Unavailable Allergies Active Allergy Reactions Criticality Noted Date Comments Ciprofloxacin 08/10/2014 Medications * This document contains information received from the source organization and may not represent a complete record from that organization. lisinopril 40 MG tablet Take 40 mg by mouth in the morning. 08/07/19 Active Blood Glucose Monitoring Suppl (ONE TOUCH ULTRA 2) w/Device kit USE TO CHECK BLOOD SUGAR FOUR TIMES DAILY 1 kit 01/01/20 Active alendronate (Fosamax) 70 MG tablet take 1 tablet once a week with 6 to 8 oz of water 30 min before first food of day. do not lie down for 30 minutes 12 tablet 04/02/20 Active Additional Information Patient not taking.Reported on 03/03/2024 cilostazol (Pletal) 50 MG tablet Take 50 mg by mouth 2 times daily. 03/02/20 Active hydrALAZINE (Apresoline) 25 MG tablet Take 25 mg by mouth 2 times daily. 03/02/20 Active nicotine (Nicoderm, Step 2) 14 MG/24HR patch APPLY 1 PATCH TOPICALLY TO THE SKIN IN THE MORNING DO NOT SMOKE WHILE USING PATCH 09/18/20 23 Active nicotine (Nicoderm CQ) 7 MG/24HR patchIndications: Cigarette nicotine dependence in remission After completion of 14mg/day patch: Apply 1 patch on the skin (one) time each day at the same time x 6 weeks. 48 patch 05/13/20 23 Active Continuous Blood Gluc Gambreler Helper (FreeStyle Reena 2 Mio) deviceIndications :Type 2 diabetes mellitus with hyperglycemia, without long-term current use of insulin (CMS/[facility]) Scan sensor every 8 hours 1 each 05/13/20 23 Active Continuous Blood Gluc Sensor (FreeStyle Reena 2 Sensor) miscIndications:T ype 2 diabetes mellitus with hyperglycemia, without long-term current use of insulin (CMS/HCC) Apply 1 sensor every 14 days 2 each 11 05/13/20 23 Active atorvastatin (Lipitor) 40 MG tabletIndications :Hyperlipidemia, unspecified hyperlipidemia type Take 1 tablet (40 mg) by mouth at bedtime. (For cholesterol) 180 tablet 3 09/01/19 24 Active SITagliptin (Januvia) 100 MG tablet TAKE 1 TABLET BY MOUTH EVERY MORNING 90 tablet 3 11/04/19 24 Active Umeclidinium [place] (Incruse Ellipta) 62.5 MCG/ACT aerosol powderIndications :Chronic obstructive pulmonary disease, unspecified COPD type (CMS/[facility]) INHALE 1 PUFF BY MOUTH EVERY DAY AT THE SAME TIME 30 each 12/03/19 24 Active OneTouch Ultra Test test stripIndications: Type 2 diabetes mellitus with hyperglycemia, without long-term current use of insulin ([facility]) TEST BLOOD SUGAR FOUR TIMES DAILY 100 strip 01/19/20 24 Active Lancets (OneTouch Delica Plus [id number]) miscIndications:T ype 2 diabetes mellitus with hyperglycemia, without long-term current use of insulin ([facility]) TEST BLOOD SUGAR FOUR TIMES DAILY 100 each 11 01/19/20 24 Active Eliquis 5 MG tablet Take 1 tablet by mouth 2 times daily. 02/14/20 24 Active Blood Pressure kit Use to check blood pressure once daily and when symptomatic 1 kit 03/04/20 24 Active gabapentin (Neurontin) 300 MG capsuleIndication s:Lumbar radiculopathy TAKE 1 CAPSULE BY MOUTH AT BEDTIME 90 capsule 3 03/31/20 24 Active Lantus SoloStar 100 UNIT/ML pen INJECT 15 UNITS SUBCUTANEOUSLY AT BEDTIME 15 mL 11 04/06/20 24 Active Pentips 32G X 4 MM misc USE DIRECTED TO INJECT INSULIN 100 each 11 04/06/20 24 Active meclizine (Antivert) 25 MG tabletIndications :Dizziness TAKE 1/2 TABLET BY MOUTH THREE TIMES DAILY IN THE MORNING, AT NOON, AND AT BEDTIME NEEDED FOR DIZZINESS 30 tablet 2 04/11/20 24 Active Fluticasone-Salme terol 250-50 MCG/ACT aerosol powderIndications :Chronic obstructive pulmonary disease, unspecified COPD type (CMS/HCC) INHALE 1 PUFF BY MOUTH TWICE DAILY. RINSE MOUTH AFTER USING. 60 each 3 04/29/20 24 Active metFORMIN (Glucophage) 1000 MG tabletIndications :Type 2 diabetes mellitus without complications (CMS/HCC) TAKE 1 TABLET BY MOUTH TWICE DAILY IN THE MORNING AND IN THE EVENING WITH FOOD 180 tablet 3 05/31/20 24 Active Calcium Carb-Cholecalcife rol 600-10 MG-MCG tabletIndications :Type 2 diabetes mellitus treated with insulin (CMS/HCC) TAKE 1 TABLET BY MOUTH EVERY MORNING 90 tablet 3 05/31/20 24 Active FLUoxetine (PROzac) 40 MG capsuleIndication s:Dysthymic disorder TAKE 1 CAPSULE BY MOUTH EVERY MORNING 90 capsule 3 05/31/20 24 Active cyanocobalamin (Vitamin B-12) 1000 MCG tablet TAKE 1 TABLET BY MOUTH EVERY EVENING 3 TIMES A WEEK ON THURSDAY, THURSDAY AND THURSDAY 90 tablet 1 06/09/20 24 Active hydrOXYzine pamoate (Vistaril) 25 MG capsuleIndication s:Anxiety TAKE 1 CAPSULE BY MOUTH THREE TIMES DAILY NEEDED FOR ANXIETY 90 capsule 3 06/30/20 24 Active famotidine (Pepcid) 20 MG tabletIndications :Gastroesophageal reflux disease, unspecified whether esophagitis present Take 1 tablet (20 mg) by mouth if needed in the morning and at bedtime for heartburn or indigestion. 60 tablet 11 07/11/19 026 Active metoprolol tartrate (Lopressor) 100 MG tabletIndications :Essential hypertension,Paro xysmal atrial fibrillation (CMS/HCC) TAKE 1 TABLET BY MOUTH TWICE DAILY IN THE MORNING AND IN THE EVENING 05/12/20 24 Active metoprolol tartrate (Lopressor) 50 MG tablet TAKE 1 TABLET BY MOUTH TWICE DAILY IN THE MORNING AND IN THE EVENING 03/23/20 23 025 Disconti nued(Dos e adjustme nt) Active Problems Problem Noted Date Diagnosed Date Cerebral cavernoma 05/04/2024 Overview (05/04/2024): MRI w/o contrast head completed Apr 2024 demonstrated: Cavernoma/ cavernous angioma, left frontal white matter. No acute stroke/nonhemorrhagic ischemia or acute brain abnormality. Neurology referral placed 05/04/24 for further eval Assessment & Plan (07/14/2024 4:41 PM EST): Continues with intermittent left sided MATHIS. Initial consult with neuro pending. Sebaceous cyst 04/11/2024 Overview (04/11/2024): Location: posterior neck Plan: excision/removal by Dr. Witt - [facility] Surgery - following discussion w/ cards regarding Eliquis Pressure in head 04/11/2024 Assessment & Plan (04/11/2024 5:08 PM EDT): Associated characteristics: pulsating, burning sensation, constant discomfort/pressure Onset: months, recently increasing in frequency (now up to 5 days per week) Gross Neuro exam benign Plan: MRI head w/o contrast ordered 04/11/24 Follow up/ED precautions Adenoma of colon 01/15/2024 Overview (01/15/2024): Family history of colon CA Following with [facility] GI Last colonoscopy 2021, plan for repeat in 2022. Scheduled for Jun 2024 Dizziness 01/15/2024 Assessment & Plan (01/15/2024 11:30 AM EDT): DDX: orthostatic hypotension vs vertigo vs other Pt with very limited water intake, strongly encouraged to increase water intake to help prevent dizziness and dehydration Continues with meclizine 12.5mg PRN. Reviewed med use and SE. Hypomagnesemia 09/24/2023 Overview (09/24/2023): Followed by PCP starting around May 2023. Persistently low despite repleting w/ mag supplement. Referred to Nephrology 3/12/24: [facility] - Dr. Beau Sterling. 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 Discontinued PPI, and ordered additional lab work Continue magnesium 200mg daily Assessment & Plan (07/14/2024 4:37 PM EST): Last consult Jun 2024. Cont as above. Healthcare maintenance 05/13/2023 Overview (07/14/2024): Mammo: BIRADS 1 on 01/13/24 OPH: January 2023 w/ Dr. Allison at [facility]. (+) proliferative diabetic retinopathy. Plan for follow up in 1 year. Colonoscopy: 06/13/24 at [facility]. 1 polyp removed. Repeat in 5 years. Paroxysmal atrial fibrillation 04/02/2023 Assessment & Plan (07/14/2024 4:35 PM EST): Following with [facility] - Dr. Perkins Previous medication: verapamil 120mg in the AM Afib during hospitalization in Feb 2024 - possibly triggered by diarrhea and electrolyte imbalance Continues on Eliquis 5mg BID and metoprolol 100mg BID Assessment & Plan (03/07/2024 11:53 AM EDT): Following with [facility] Perkins Previous medication: verapamil 120mg in the AM Confirm discontinuation with Cards Afib during hospitalization in Feb 2024 - possibly triggered by diarrhea and electrolyte imbalance Continues on Eliquis 5mg BID and metoprolol 50mg BID Assessment & Plan (01/15/2024 11:22 AM EDT): Following with [facility] Perkins Continues with verapamil 120mg in the AM Adenocarcinoma of left lung 11/09/2022 Overview (04/11/2024): Lung CA screening completed 10/14/22 at [facility]. Ordered by Crystal CHANDLER Pack year history: 53 years Impression: Emphysema and probable mild interstitial disease. Interval increase in size and density of irregularly-shaped parenchymal density in the medial left lower lobe. PET/CT scan or tissue sampling recommended. Small stable calcified pulmonary nodules. Lung-RADS category: 4B Suspicious 03/18/23: -procedure: VATS with lobectomy bronch -Indication: left lower lobe pulmonary nodule - demonstrated cancer. Pathology revealed stage 1a (pT1b, pN0) pulmonary invasive acinar adenocarcinoma. Recommendations for [address] scan. Will start with CT scans Q6 months x 2 years, then decrease to once/year x [address] will be in 6 months, September 2023. Pulm Consult note Apr 2023: NODULE WAS ADENO CARCINOMA, REMOVED COMPLETELY. PATIENT WOULD NEED SURVEILLANCE WITH CT SCANS FOR 5 YEARS. WILL CONTINUE TO FOLLOW-UP WITH DR. HARRIS 09/29/23: [facility] CT Chest w/o contrast (Dr. Harris) - impression: surgical changes in the left chest without evidence of recurrent disease. 03/28/24: [place] CT Chest (Dr. Harris) - Impression: Left lower lobectomy. Small amount of loculated pleural fluid at the left base which appears similar to the previous study. No suspicious pulmonary nodule. Stable borderline enlarged mediastinal lymph node. Assessment & Plan (04/11/2024 4:57 PM EDT): Next CT scan due September 2024 Assessment & Plan (01/15/2024 11:13 AM EDT): Next CT scan due Mar 2024 Mild anxiety 10/30/2022 Nicotine dependence 10/27/2022 Assessment & Plan (05/13/2023 3:31 PM EST): -Congratulated that no longer smoking cigg -Refill NRT patches 7mg/day sent to the pharmacy Peripheral vascular disease 10/06/2018 Assessment & Plan (01/15/2024 11:24 AM EDT): Following with [facility] - Dr. Perkins. 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 Left common iliac artery: significant stenosis, 50-99%. Left external iliac artery: moderate stenosis 20-49%. Left superficial femoral artery: significant stenosis 50-99% Chronic pain 10/06/2018 Type 2 diabetes mellitus wit h hyperglycemia, without long-term current use of insulin 06/01/2018 Overview (03/07/2024): Lab Results Component Value Date HGBA1C 9.9 [...] yes Statin: yes CGM order placed: 05/13/23 Assessment & Plan (07/14/2024 4:45 PM EST): Does not desire med changes at this time. Cont with the following regimen, and encouraged to increase lifestyle interventions. Plan to decrease sweets/candies and increase water intake. Continues with the following medication regimen: Metformin 1000mg BID Januvia 100mg daily Lantus 15 units subcutaneous at bedtime Assessment & Plan (03/07/2024 12:07 PM EDT): Does not desire med changes at this time. Cont with the following regimen, and encouraged to increase lifestyle interventions Continues with the following medication regimen: Metformin 1000mg BID Januvia 100mg daily Lantus 15 units subcutaneous at bedtime Assessment & Plan (09/20/2023 7:56 PM EDT): Does not desire med changes at this time. Cont with the following regimen, and encouraged to increase lifestyle interventions Continues with the following medication regimen: Metformin 1000mg BID Januvia 100mg daily Lantus 15 units subcutaneous at bedtime Assessment & Plan (05/13/2023 3:29 PM EST): Does not desire med changes at this time. Cont with the following regimen, and encouraged to increase lifestyle interventions Continues with the following medication regimen: ?? Metformin 1000mg BID ?? Januvia 100mg daily ?? Lantus 15 units subcutaneous at bedtime Assessment & Plan (03/05/2023 8:24 PM EDT): Continues with the following medication regimen: ?? Metformin 1000mg BID ?? Januvia 100mg daily ?? Lantus 5 units subcutaneous at bedtime Assessment & Plan (11/09/2022 11:20 AM EDT): Continue with current medications, priority mental health during today's visit. Encouraged lifestyle interventions Lumbar radiculopathy 02/15/2018 Osteoporosis 08/22/2014 Urinary incontinence 08/10/2014 Hyperlipidemia 08/10/2014 Essential hypertension 08/10/2014 Assessment & Plan (07/14/2024 4:45 PM EST): Elevated in office, but well-controlled per home readings. Following closely with Cards. Followed by Dr. Perkins Jul 2023: Nuclear stress test. Impression: probably abnormal. Possible artifact, normal LV function with EF 52% resting, 48% with stress December 2023: Echo with EF 45-50%. Aortic valve mildly calcified Continues on the following med regimen: Metoprolol 100mg BID Lisinopril 40mg daily Hydralazine 25mg BID Assessment & Plan (03/07/2024 12:09 PM EDT): Elevated in office, in need of new BP home monitor, sent. Return precautions reviewed. Following closely with Cards. Followed by Dr. Perkins Jul 2023: Nuclear stress test. Impression: probably abnormal. Possible artifact, normal LV function with EF 52% resting, 48% with stress December 2023: Echo with EF 45-50%. Aortic valve mildly calcified Continues on the following med regimen: Metoprolol 50mg BID Lisinopril 40mg daily Hydralazine 25mg BID Assessment & Plan (01/15/2024 11:25 AM EDT): Followed by Dr. Perkins Jul 2023: Nuclear stress test. Impression: probably abnormal. Possible artifact, normal LV function with EF 52% resting, 48% with stress December 2023: Echo with EF 45-50%. Aortic valve mildly calcified Continues on the following med regimen: Low-dose verapamil 120mg daily Metoprolol 50mg BID Lisinopril 40mg daily Hydralazine 25mg BID Assessment & Plan (09/24/2023 3:03 PM EDT): Followed by Dr. Perkins Jul 2023: Nuclear stress test. Impression: probably abnormal. Possible artifact, normal LV function with EF 52% resting, 48% with stress Continues on the following med regimen: Low-dose verapamil 120mg daily Metoprolol 50mg BID Lisinopril 40mg daily Hydralazine 25mg BID Cilostazol 50mg BID Disorder of intervertebral disc of lumbar spine 08/10/2014 Chronic obstructive lung disease 08/10/2014 Overview (07/14/2024): Following with [facility] Pul - Dr. Floyd Continues with Advair 500-50 BID, Ellipta daily, proair PRN. Reports breathing well controlled on current regimen. May use supplemental oxygen: 2L/min if doing physical activity or exerting herself (orders through [facility] Pul) (6 min walk test Apr 2024) Assessment & Plan (04/11/2024 4:55 PM EDT): Cont current therapy Resolved Problems Problem Noted Date Diagnosed Date Resolved Date Salmonella food poisoning 03/07/2024 Assessment & Plan (03/07/2024 11:54 AM EDT): - Hospitalized Feb 2024 for Salmonella food poisoning - Reports back to baseline today Primary adenocarcinoma of left lung 04/02/2023 05/13/2023 Overview (04/02/2023): 03/31/23: [place] [facility] surgery follow up. Respiratory therapy performed a home O2 eval and patient was found to have requirements of 1 L NC supplementation during times of ambulation. Referred to Dr. Floyd for weaning of oxygen. Pathology revealed stage 1a (pT1b, pN0) pulmonary invasive acinar adenocarcinoma. Recommendations for [address] scan[address] Will start with CT scans Q6 months x 2 years, then decrease to once/year x [address] will be in 6 months, September 2023. History of lobectomy of lung 03/21/2023 05/13/2023 Continuous auditory hallucinations 10/30/2022 05/13/2023 Assessment & Plan (11/09/2022 11:10 AM EDT): ?? Combination of auditory, tactile, and visual hallucinations x approx 1 year. Reports that they initiated after stressful event, and recently became more frequent following of loved one ?? Denies SI/HI/thoughts of self harm ?? BE completed following appt with mental health provider ?? Safety planning reviewed Continuous visual hallucinations 10/30/2022 05/13/2023 Continuous tactile hallucinations 10/30/2022 05/13/2023 Type 2 diabetes mellitus, uncontrolled 08/10/2014 10/27/2022 Dysthymia 08/10/2014 03/05/2023 Encounters Date Type Department Care Team Description 08/05/2024 Telephone [facility] [address] [place] [address] Lea Saavedra PharmD 07/28/2024 Orders Only GENERIC EXTERNAL DATA DEPARTMENT Provider, Generic External Data 07/11/2024 1:45 PM EST Office Visit [facility] [address] [place] [address] Anabelle Obrien FNP Type 2 diabetes mellitus with hyperglycemia, without long-term current use of insulin (CMS/HCC) (Primary Dx); Essential hypertension; Chronic obstructive pulmonary disease, unspecified COPD type (CMS/HCC); Paroxysmal atrial fibrillation (CMS/HCC); Hypomagnesemia; Healthcare maintenance; Cerebral cavernoma; Gastroesophageal reflux disease, unspecified whether esophagitis present 07/11/2024 Travel 07/07/2024 Telephone [facility] [address] [place] [address] Danna Garcia MA Chart Prep 06/29/2024 Refill [facility] [address] [place] [address] Anabelle Obrien FNP Anxiety 06/14/2024 Telephone [facility] [address] [place] [address] Anabelle Obrien FNP Daria recall 06/14/2024 Telephone [facility] [address] [place] [address] Anabelle Obrien FNP 06/13/2024 Orders Only GENERIC EXTERNAL DATA DEPARTMENT Provider, Generic External Data 06/08/2024 Refill [facility] [address] [place] [address] Anabelle Obrien FNP 05/30/2024 Refill [facility] [address] [place], [place] [id number] Anabelle Obrien FNP Type 2 diabetes mellitus without complications (CMS/HCC); Type 2 diabetes mellitus treated with insulin (CMS/HCC); Dysthymic disorder from Last 3 Months Immunizations Name Administration Dates Next Due Hep B, adult 02/28/2015,09/28/2014,08/24/2014 Influenza injectable quadriv alent preservative free 08/10/2014 MMR 08/24/2014 Pneumococcal Conjugate PCV 13 08/03/2019 Pneumococcal Polysaccharide PPSV23 08/10/2014 Tdap 08/10/2014 Zoster, live 02/28/2015 Social History Tobacco Use Types Packs/Day Years Used Date Smoking Tobacco: Former Cigarettes Passive Smoke Exposure: Past Smokeless Tobacco: Never Tobacco Cessation:Counseling Given: Not Answered Alcohol Use Standard Drinks/Week Comments Never 0 [...] not to disclose 2021 10:27 AM EDT Last Filed Vital Signs Vital Sign Reading [...] Mass Index 30.9 07/11/2024 2:11 PM EST Plan of Treatment Health Maintenance Due Date Last Done Comments CT Colonography 1955 FIT DNA/Cologuard 1955 FIT 1955 FOBT 1955 Sigmoidoscopy 1955 Diabetes: Foot Exam 1964 RSV Patients and Patients Aged 60 years or older (1 - Risk 60-74 years 1-dose series) 2014 Zoster Vaccines (2 of 3) 04/25/2015 02/28/2015 SDOH Screening 10/23/2023 10/22/2022 Diabetes: Urine Protein Screening 04/23/2024 04/23/2023, 12/26/2021, 07/17/2020 Lipid Panel 04/23/2024 04/23/2023, 12/05, 07/17/2020 Pneumococcal Vaccine: 50+ Years (3 of 3 - PCV20 or PCV21) 08/03/2024 08/03/2019, 08/10/2014 DTaP/Tdap/Td Vaccines (2 - Td or Tdap) 08/10/2024 08/10/2014 Diabetes: Hemoglobin A1C 10/09/2024 025, 03/04/2024, 12/28/2023, Additional history exists Influenza Vaccine (#1) 2025 08/10/2014 Postp oned from 03/06/2024 (Patient Refused) Mammogram 01/12/2025 01/13/2024, 12/06, 01/02/2022, Additional history exists Eye Exam 01/20/2025 01/21/2024, 01/03, 01/21/2024, Additional history exists Tobacco Screening 05/04/2025 05/04/2024 Alcohol/Substance Use Screening 07/11/2025 07/11/2024 COVID-19 Vaccine ( season) 2025 09/09/2021, 11/28/2020, 10/31/2020 Postponed from 03/06/2024 (Patient Refused) Depression Screening 07/14/2025 07/14/2024, 07/14/19 25 Colonoscopy 06/13/2029 06/13/2024, 11/29/2014 Colorectal Cancer Screening 06/13/2029 Hepatitis B Vaccines Completed 02/28/2015, 09/28/2014, 08/24/2014 Hepatitis C Screening Completed 04/23/2023 HIB Vaccines Aged Out No longer eligi ble based on patient's age to complete this topic HPV Vaccines Aged Out No longer eligi ble based on patient's age to complete this topic Hepatitis A Vaccines Aged Out No long er eligible based on patient's age to complete this topic IPV Vaccines Aged Out No longer eligi ble based on patient's age to complete this topic Meningococcal Vaccine Aged Out No mp shady eligible based on patient's age to complete this topic RSV under 20 months Aged Out No longe r eligible based on patient's age to complete this topic Rotavirus Vaccines Aged Out No longer eligible based on patient's age to complete this topic Procedures Procedure Name Priority Date/Time Associated Diagnosis Comments GROSS AND MICROSCOPIC LEVEL 3 Routine 07/28/2024 2:49 PM EST GLUCOSE, WHOLE BLOOD Routine 07/28/2024 1:30 PM EST POCT URINALYSIS DIPSTICK Routine 07/11/2024 2:27 PM EST Type 2 diabetes mellitus with hyperglycemia, without long-term current use of insulin (CMS/HCC) POCT GLYCATED HEMOGLOBIN, TOTAL Routine 07/11/2024 2:26 PM EST Type 2 diabetes mellitus with hyperglycemia, without long-term current use of insulin (CMS/HCC) POCT GLUCOSE Routine 07/11/2024 2:25 PM EST Type 2 diabetes mellitus with hyperglycemia, without long-term current use of insulin (CMS/HCC) HM COLONOSCOPY Routine 06/13/2024 4:01 PM EST HEMATOXYLIN AND EOSIN STAIN Routine 06/13/2024 11:55 AM EST GLUCOSE, WHOLE BLOOD Routine 06/13/2024 11:27 AM EST GLUCOSE, WHOLE BLOOD Routine 06/13/2024 10:21 AM EST BI MAMMOGRAM SCREENING TOMOSYNTHESIS BILATERAL Routine 01/13/2024 12:48 PM EDT HEPATITIS C VIRAL RNA, QUANTITATIVE, REAL-TIME PCR Routine 04/23/2023 9:05 AM EDT Healthcare maintenance ALBUMIN, RANDOM URINE W/CREATININE Routine 04/23/2023 9:05 AM EDT Healthcare maintenance Type 2 diabetes mellitus with hyperglycemia, without long-term current use of insulin (CMS/HCC) LIPID PANEL, STANDARD Routine 04/23/2023 9:05 AM EDT Healthcare maintenance Type 2 diabetes mellitus with hyperglycemia, without long-term current use of insulin (CMS/HCC) from Last 3 Months or Most Recently Relevant to Health Maintenance Results * Gross and Microscopic Level 3 (07/28/2024 2:49 PM EST) 07/28/2024 2:49 PM EST 07/28/2024 3:05 PM EST [facility] LABS - 08/04/2024 12:05 PM EST ----- ------- Name: Tete Ayon ?Age/Sex: 69/F ? : 1955 Unit#: [id number] ?? Attend Dr: Kd Witt MD ?Re07/28/24 ?Status: DEP SDC ? Location: HO.SSS ?Disch: ? ----- ------- SPEC : [id number] ?RECD: 07/28/24-150 ? STATUS: ??SOUT ? REQ NUM: [id number] ? SHANT: 07/28/24-1449 ? SUBM DR: Kd Witt MD ? ENTERED: ??07/28/24-1506 ?SP TYPE: Surgical ? OTHR DR: Anabelle Obrien CYCLE SPECIALIST ? ORDERED: ??Gross Micro L3 ? Diagnosis ?? Skin, posterior neck mass, excision: ?? 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 ?? -Dermal scar. ? 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 The previous ?? biopsy ([id number]) was reviewed and is consistent with folliculosebaceous [...] identified other than the adjacent fat necrosis. Financial Advisor Trainee sections are submitted in cassettes [id number]. CEDS This case was reviewed intradepartmentally, dermatopathology. ? CONTINUED ON NEXT PAGE ----- ------- Name: Tete Ayon ?Age/Sex: 69/F ? : 1955 Unit#: [id number] ?? Attend Dr: Kd Witt MD ?Re07/28/24 ?Status: DEP SDC ? Location: HO.SSS ?Disch: ? ----- ------- SPEC : [id number] ?RECD: 07/28/24-1504 ? STATUS: ??SOUT ? REQ NUM: [id number] ? SHANT: 07/28/24-7890 ? SUBM DR: Kd Witt MD ? ENTERED: ??07/28/24-1506 ?SP TYPE: Surgical ? OTHR DR: Anabelle Obrien CYCLE SPECIALIST ? ORDERED: ??Gross Micro L3 ? Copies To: ?? Anabelle Obrien CYCLE SPECIALIST ?? [address] [facility] ?? [place] [address] ?? [phone] ?? Kd Witt MD ?? [facility] General Surgeons ?? [address] ?? [place] [address] ?? [phone] ?? [email or web address] ----- ------- Signed (signature on file) Cherie [place] 08/04/24 8295 ? ----- ------- ? END OF REPORT ? Generic External Data Provider LAB CYTOLOGY ORDE RABLES Final Result Performing Organization Address [facility] de Phone Number [facility] [address] [place] [address] [phone] * (ABNORMAL) Glucose, Whole Blood (07/28/2024 1:30 PM EST) Only the most recent of3 resultswithin the time period is included. Glucose, Whole Blood 186(H) 60 - 115 mg/dL [facility] Comment:METER #: [id number] 07/28/2024 1:30 PM EST 07/28/2024 1:35 PM EST Generic External Data Provider LAB BLOOD ORDERAB LES Final Result Performing Organization Address [facility] de Phone Number [facility] [address] [place] [address] [phone] * (ABNORMAL) POCT Urinalysis (07/11/2024 2:27 PM [...] Expiration Date Urine 07/11/2024 2:27 PM EST Anabelle Obrien CYCLE SPECIALIST POINT OF CARE TEST ENTER/EDIT ORDERABLES Final Result * (ABNORMAL) POCT HGB A1C (07/11/2024 2:26 PM EST) Hemoglobin A1C 10.2(A) 4.0 - 6.0 % QC Media Lot # [id number] Lot# Expiration Date 812,026 Blood 07/11/2024 2:26 PM EST Anabelle Phalen CYCLE SPECIALIST POINT OF CARE TEST ENTER/EDIT ORDERABLES Final Result * (ABNORMAL) POCT Glucose (07/11/2024 2:25 PM EST) Glucose Blood, POC 324(A) 60 - 200 mg/dL Comment:Random QC Media Lot # [id number] Lot# Expiration Date 482,[id number] Blood Capillary blood specimen / Unknown 07/11/2024 2:25 PM EST Anabelle Phalen CYCLE SPECIALIST POINT OF CARE TEST ENTER/EDIT ORDERABLES Final Result * Hm Colonoscopy (06/13/2024 4:01 PM EST) Historical Provider MD HEALTH MAINTENANCE Final Result * Hematoxylin and Eosin Stain (06/13/2024 11:55 AM EST) 06/13/2024 11:5 5 AM EST 06/13/2024 12:15 PM EST Narrative [facility] - 06/14/2024 2:00 PM EST ----- ------- Name: Tete Ayon ?Age/Sex: 69/F ? : 1955 Unit#: [id number] ?? Attend Dr: Nora Valdez MD ?Re06/13/24 ?Status: DEP SDC ? Location: HO.SSS ?Disch: ? ----- ------- SPEC : [id number] ? RECD: 06/13/24-5 ? STATUS: ??SOUT ? REQ NUM: [id number] ? SHANT: 06/13/24-1155 ? SUBM DR: Nora Valdez MD ? ENTERED: ??06/13/24-3 ?SP TYPE: Surgical ? OTHR DR: Anabelle ObrienP ? ORDERED: ??HE Stain/3, Gross Micro L4 ? Diagnosis ?? Colon, transverse, polypectomy: ??Inflammatory polyp. ?Clinical History Pre-Op Dx: ??History of polyps, family history of colon cancer Post-Op Dx: Colon polyp, diverticulosis, internal hemorrhoids ?Microscopic Description Microscopic sections reviewed. ? Material Received ?? Transverse colon polyp ? Gross Description Received in formalin labeled ?transverse colon polyp? is a 0.5 cm zhao- pink polypoid portion of tissue with an attached 0.3 x 0.2 x 0.2 cm zhao stalk along with a 0.15 cm pale zhao irregular tissue fragment, submitted in toto in a cassette labeled A. CEDS Copies To: ?? Anabelle Obrien CYCLE SPECIALIST ?? [address] [facility] ?? [place] [address] ?? [phone] ?? Nora Valdez MD ?? [facility] Gastroenterology Services ?? [address] ?? [place] ?? [phone] ?? [email or web address] ----- ------- Signed (signature on file) Slade Hampton MD 06/14/24 1400 ? ----- ------- ? END OF REPORT ? us Generic External Data Provider LAB BLOOD ORDERAB LES Final Result [facility] [address] [place] [address] [phone] * BI Mammogram Screening Tomosynthesis Bilateral (01/13/2024 12:48 PM EDT) Anatomical Region Laterality Modality Breast Bilateral Mammography 01/13/2024 12:4 8 PM EDT Narrative 02/08/2024 10:38 PM EDT ? [facility] [place] ? [address] ?[place] [address] ? Mammography Report ? Signed ? Patient: Juliette Holder,Tete ?MR#: ?? [id number] ? : 1955 ?Acct:[id number] ? Age/Sex: 68 / F ?ADM Date: 01/13/24 ? Loc: HO.MAMMO ? Attending Dr: Anabelle Obrien CYCLE SPECIALIST ? Ordering Physician: Anabelle Obrien CYCLE SPECIALIST ?Results: 1Negat ?? pranay ? Date of Service: 01/13/24 ?Follow Up: 1 Year From Orig ?? inal Mammogram ? Procedure(s): MM tomosynthesis screening BI ?? Accession Number(s): [id number] ? cc: Anabelle Obrien CYCLE SPECIALIST ? EXAMINATION: ?? MM SCREENING DIGITAL BREAST TOMOSYNTHESIS, BILATERAL ? CLINICAL INFORMATION: ? Screening. Asymptomatic. ? COMPARISON: ?? Mammography: This study is compared with prior exams dating back to ?? 2019. ? TECHNIQUE: ?? Digital breast tomosynthesis is performed in both the craniocaudal and ?? mediolateral oblique views along with computer-aided detection (CAD). ?? Synthesized 2D images are generated from the tomosynthesis. ? FINDINGS: ?? The breasts are almost entirely fatty (ACR BI-RADS breast composition ?? Category a). ? There are no significant masses, abnormal calcifications, or other ?? abnormalities. ? MM/MM tomosynthesis screening BI ?? IMPRESSION: ?? No mammographic evidence of malignancy. ? ASSESSMENT: ? BI-RADS BI-RADS 1 - Negative ? RECOMMENDATION: ?? Routine annual mammography screening. ? 1 year F/U ? This examination should not preclude the clinical evaluation of a ?? suspicious palpable abnormality. ? This patient's information was entered into a reminder system with a ?? target due date for their next mammogram. ? Dictated By: ?Carey Dao MD ? Signed By: ?<Electronically signed by Carey Dao MD in OV> ? 02/08/242233 ? DD/ 1248 ? TD/TT: ? Flat Optical Element Maker: ? Procedure Note Beena, Almaz - 02/08/2024 [facility] [address] [place] [address] Mammography Report Signed Patient: Markell AyonMartine#: [id number] : 1955cct:[id number] Age/Sex: 68 / FADM Date: 01/13/24 Loc: HO.MAMMO Attending Dr: Anabelle Obrien CYCLE SPECIALIST Ordering Physician: Anabelle Obrien FNPResults: 1Negat pranay Date of Service: 01/13/24Follow Up: 1 Year From Orig inal Mammogram Procedure(s): MM tomosynthesis screening BI Accession Number(s): [id number] cc: Anabelle Obrien CYCLE SPECIALIST EXAMINATION: MM SCREENING DIGITAL BREAST TOMOSYNTHESIS, BILATERAL CLINICAL INFORMATION: Screening. Asymptomatic. COMPARISON: Mammography: This study is compared with prior exams dating back to 2019. TECHNIQUE: Digital breast tomosynthesis is performed in both the craniocaudal and mediolateral oblique views along with computer-aided detection (CAD). Synthesized 2D images are generated from the tomosynthesis. FINDINGS: The breasts are almost entirely fatty (ACR BI-RADS breast composition Category a). There are no significant masses, abnormal calcifications, or other abnormalities. MM/MM tomosynthesis screening BI IMPRESSION: No mammographic evidence of malignancy. ASSESSMENT: BI-RADS BI-RADS 1 - Negative RECOMMENDATION: Routine annual mammography screening. 1 year F/U This examination should not preclude the clinical evaluation of a suspicious palpable abnormality. This patient's information was entered into a reminder system with a target due date for their next mammogram. Dictated By: Carey Dao MD Signed By: <Electronically signed by Carey Dao MD in OV> 02/08/244 DD/ 1248 TD/TT: Flat Optical Element Maker: Anabelle Obrien [facility] IM BI PROCEDURES Final Result * Hepatitis C Viral RNA, Quantitative, Real-Time PCR (04/23/2023 9:05 AM EDT) Hepatitis C Viral Load <15 NOT DETECTED NOT DETECTED IU/mL [facility] HCV Log PCR <1.18 NOT DETECTED NOT DETECTED Log IU/mL [facility] Comment:This test was perfor med using Real-Time Polymerase ChainReaction.Reportable Range: 15 IU/mL to 100,000,000 IU/mL(1.18 Log IU/mL to 8.00 Log IU/mL).The analytical performance characteristics of thisassay have been determined by [employer].The modifications have not been cleared or approved bythe FDA. This assay has been validated pursuant to theCLIA regulations and is used for clinical purposes.For more information on this test, go to:http://[email or web address]/faq/MUU63b6(This link is being provided for informational/educational purposes only.)THIS TEST WAS PERFORMED AT:[employer] [place] [phone] COLLAZO MD Blood 04/23/2023 9:05 AM EDT 04/23/2023 11:11 AM EDT us Anabelle Obrien [facility] LAB BLOOD ORDERABLES Final Res ult Performing Organization Address [facility] de Phone Number [facility] [address] [place] [phone] * (ABNORMAL) Albumin, Random Urine W/Creatinine (04/23/2023 9:05 AM EDT) Creatinine, Urine 100.38 mg/dL [facility] Microalbumin Urine 32.0 mg/L [facility] Microalbum Creatinine Ratio Ur 31.8(H) <30 ug/mg cr [facility] Comment:Albumin/Creatinine R atio Reference Ranges: Normal: < 30 ug/mg creatinine Microalbuminuria: 30 - 300 ug/mg creatinineClinical Albuminuria: > 300 ug/mg creatinine Urine 04/23/2023 9:05 AM EDT 04/23/2023 10:57 AM EDT [address]le Ob[address] [facility] LAB URINE ORDERABLES Final Res ult Performing Organization Address [facility] Co de Phone Number [facility] [address] [place] [phone] * Lipid Panel, Standard (04/23/2023 9:05 AM EDT) Triglycerides 94 <150 mg/dL [facility] Comment:Desirable Triglyceri de: less than 150 mg/dLBorderline High Triglyceride 150-199 mg/dLHigh Triglyceride: 200-499 mg/dLVery High Triglyceride: greater than or equal to 5OO mg/dL Cholesterol 146 <200 mg/dL [facility] Comment:Desirable Cholestero l: less than 200 mg/dLBorderline High Cholesterol: 200-239 mg/dLHigh Cholesterol: greater than 239 mg/dL LDL Cholesterol Calculated 79 <100 mg/dL [facility] Comment:Desirable LDL: less than 100 mg/dLNear Optimal/Above Optimal LDL: 110- 129 mg/dLBorderline High LDL: 130-159 mg/dLHigh LDL: 160-189 mg/dLVery High LDL: greater than or equal to 190 mg/dL HDL Cholesterol 49 >40 mg/dL [facility] Comment:Desirable HDL: great er than 40 mg/dL Note: This HDL assay may give artificially low results in patients with liver disease. Blood Venous blood specimen / Unknown 04/23/2023 9:05 AM EDT 04/23/2023 11:11 AM EDT us Anabelle Obrien CYCLE SPECIALIST LAB BLOOD ORDERABLES Final Res ult [facility] [address] [place] [phone] from Last 3 Months or Most Recently Relevant to Health Maintenance Insurance [facility] Care Teams Chronograph Operator Relationship Specialty Start Date End Date Anabelle Obrien FNP [address] [place] [address] PCP - General Family Medicine 06/02/22 [place] Perkins MD [address] [place] [address] Cardiology 07/14/24 Pardeep Floyd [address] [place] [address] Pulmonary Disease 07/14/24 Beau Sterling MD [address] [place] [address] Nephrology 07/14/24 Nora Valdez [address]rd [place] [address] Gastroenterology 07/14/24
--- OUTSIDE RECORDS SUMMARY | 2024-08-09 11:51 | XMS_ITS | Encounter Summary ---
Author Organization [employer] Address [address] [place] [address] Care Team Providers Care Agriculture Mechanic Name Role Phone Anabelle Obrien Primary Care Provider [phone] [place] Perkins MD Unavailable [phone] Pardeep Floyd Unavailable Beau Sterling MD Unavailable Nora Valdez Unavailable Encounter Details Date Type Department Care Team (Late st Contact Info) Description 08/05/2024 Telephone [facility] [address] [place], [place] [phone] Lea Saavedra, PharmD [address] [place], [place] [phone] Social History Tobacco Use Types Packs/Day Years [...] AM EDT documented as of this encounter Miscellaneous Notes * Telephone Encounter - Lea Saavedra PharmD - 08/05/2024 12:36 PM EST Hello, this patient has an A1c > 10% and would benefit from the pharmacy CDTM program. Please send a referral for CDTM - Diabetes E11.65. Thank you! documented in this encounter Plan of Treatment Not on file documented as of this encounter Visit Diagnoses Not on filedocumented in this encounter Additional Health Concerns Assessment Noted Time PHQ-9 Depression Total Score: 4 07/14/19 25 4:51 PM EST documented as of this encounter Care Teams Agriculture Mechanic Relationship Specialty Start Date End Date Anabelle Obrien FNP [address] [place] [address] PCP - General Family Medicine 06/02/22 [place] Perkins MD [address] [place] [address] Cardiology 07/14/24 Pardeep Floyd [address] [place] [address] Pulmonary Disease 07/14/24 Beau Sterling MD [address] [place] [address] Nephrology 07/14/24 Nora Valdez [address] [place] [address] Gastroenterology 07/14/24 documented as of this encounter
--- OUTSIDE RECORDS SUMMARY | 2024-08-09 11:51 | XMS_ITS | Encounter Summary ---
Author Organization [employer] Address [address] [place] [address] Care Team Providers Care Chlorobutadiene Scrubber Operator Name Role Phone Anabelle Obrien HUMAN GEOGRAPHY INSTRUCTOR Primary Care Provider [phone] Encounter Details Date Type Department Care Team (Latest Contact Info) Description 07/11/2024 Travel Social History Tobacco Use Types Packs/Day Years [...] documented as of this encounter Care Teams Chlorobutadiene Scrubber Operator Relationship Specialty Start Date End Date Anabelle Obrien FNP [address] [place] [address] PCP - General Family Medicine 06/02/22 documented as of this encounter
--- OUTSIDE RECORDS SUMMARY | 2024-08-09 11:51 | XMS_ITS | Clinical Summary ---
Author Organization [facility] Address [address] [place] [address] Phone Care Team Providers Care Cath Lab Radiological Technologist Name Role Phone Anabelle bOrien RN Primary Care Provider Allergies Active Allergy Reactions Criticality Noted Date Comments Ciprofloxacin Anaphylaxis High 02/11/2023 Medications Medication Sig Dispensed Refills Start Date End Date Status apixaban (ELIQUIS) 5 mg tablet Take 5 mg by mouth 2 times daily. Active albuterol HFA (PROAIR HFA ; PROVENTIL HFA ; VENTOLIN HFA) 90 mcg/actuation inhaler Inhale 2 puffs by mouth every 4 (four) hours if needed. Active aspirin 81 mg EC tablet Take 1 tablet (81 mg total) by mouth 1 (one) time each day. Active atorvastatin (LIPITOR) 40 mg tablet Take 1 tablet (40 mg total) by mouth 1 (one) time each day. Active calcium carbonate/vitamin D3 (CALCIUM CARBONATE-VITAMIN D PO) Take 1 Tablet by mouth daily. Active cilostazoL (PLETAL) 50 mg tablet Take 1 tablet (50 mg total) by mouth 2 (two) times a day. Active FLUoxetine (PROzac) 40 mg capsule Take 1 capsule (40 mg total) by mouth 1 (one) time each day. Active gabapentin (GRALISE) 300 mg 24 hr tablet Take 1 tablet (300 mg total) by mouth 1 (one) time each day. Active hydrALAZINE (APRESOLINE) 25 mg tablet Take 1 tablet (25 mg total) by mouth 2 (two) times a day. Active fluticasone propion-salmeteroL (ADVAIR DISKUS) 500-50 mcg/dose diskus inhaler Inhale 1 Inhaler into the lungs 2 times daily. Active insulin glargine (LANTUS) 100 unit/mL injection Inject 10 Units into the skin at bedtime. Active lisinopril (PRINIVIL,ZESTRIL) 40 mg tablet Take 1 tablet (40 mg total) by mouth 1 (one) time each day. Active metFORMIN (GLUCOPHAGE) 1,000 mg tablet Take 1 Tablet by mouth 2 times daily (with meals). Active metoprolol tartrate (LOPRESSOR) 100 mg tablet Take 1 tablet (100 mg total) by mouth 2 (two) times a day. Active tiotropium (Spiriva with HandiHaler) 18 mcg per inhalation capsule Inhale 1 Capsule into the lungs daily. Active SITagliptin phosphate (Januvia) 50 mg tablet Take 1 tablet (50 mg total) by mouth 1 (one) time each day. Active omeprazole (PriLOSEC) [address] capsule Take 1 capsule (20 mg total) by mouth 1 (one) time each day. Active nitrofurantoin, macrocrystal-monohydra te, (MACROBID) 100 mg capsule Take 1 capsule (100 mg total) by mouth 2 (two) times a day. Active methylcellulose, laxative, 500 mg tablet Take 1 tablet by mouth 2 (two) times a day. Active Active Problems Problem Noted Date Diagnosed Date Adenocarcinoma of left lung 10/06/2023 Chronic pain 10/06/2023 COPD (chronic obstructive pulmonary disease) 08/2023 Disorder of intervertebral disc of lumbar spine 10/06/2023 Hyperlipidemia 10/06/2023 Hypertension 10/06/2023 Lumbar radiculopathy 10/06/2023 Mild anxiety 10/06/2023 Nicotine dependence 10/06/2023 Osteoporosis 10/06/2023 Paroxysmal atrial fibrillation 10/06/2023 Hypomagnesemia 10/06/2023 Peripheral vascular disorder 10/06/2023 Urinary incontinence 10/06/2023 Pleural effusion on left 05/12/2023 Surgical History Surgery Date Site/Laterality Comments HYSTERECTOMY N/A PROCEDURE: HISTORICAL HYSTERECTOMY COLONOSCOPY N/A PROCEDURE: HISTORICAL COLONOSCOPY OTHER SURGICAL HISTORY N/A PROCEDURE: HI SLING OPERATION STRESS INCONTINENCE OTHER SURGICAL HISTORY N/A PROCEDURE: HI OSTECTOMY COMPLETE OTHER METATARSAL HEAD OTHER SURGICAL HISTORY 03/18/2023 PROCEDURE: HI THORACOSCOPY W/LOBECTOMY SINGLE LOBE Medical History Medical History Date Comments Anxiety disorder DX:Anxiety diso rder COPD (chronic obstructive pu lmonary disease) ([facility]) DX:COPD (chronic obstructive pulmonary disease) (HCC) Dyslipidemia DX:Dyslipidemia HTN (hypertension) DX:HTN (hyper tension) PVD (peripheral vascular dis ease) (CMS/HCC) DX:PVD (peripheral vascular disease) (HCC) Tobacco abuse DX:Tobacco abuse History of uterine cancer DX:His tory of uterine cancer Type 2 diabetes mellitus wit hout complications (CMS/HCC) DX:Type 2 diabetes mellitus without complications (HCC) Urinary incontinence DX:Urinary incontinence Osteoporosis DX:Osteoporosis Nicotine dependence DX:Nicotine dependence Lumbar radiculopathy DX:Lumbar r adiculopathy Mixed hyperlipidemia DX:Mixed hy perlipidemia 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 DX:Disorder of intervertebra l disc of lumbar spine Chronic pain DX:Chronic pain Adenocarcinoma of left lung (CMS/HCC) DX:Adenocarcinoma of left lung (HCC) Paroxysmal atrial fibrillation (CMS/HCC) DX:Paroxysmal atrial fibrillation (HCC) Hypomagnesemia DX:Hypomagnesemi a Family History Medical History Relation Name Comments Colon cancer Brother Lung cancer Sister Relation Name Status Comments Brother Daughter 3 Alive Sister Alive Social History Tobacco Use Types Packs/Day Years Used Date Smoking Tobacco: Former Cigarettes Q uit: 03/17/2023 Smokeless Tobacco: Never Sex and Gender Information Value Date Recorded Sex Assigned at Not on file Gender Identity Not on file Sexual Orientation Not on file Obstetrics History Last Filed Vital Signs Vital Sign Reading Time Taken Comments Blood Pressure 144/79 03/28/2024 10:58 AM EDT Sitting L Arm Pulse 76 03/28/2024 10:58 AM EDT Temperature - - Respiratory Rate - - Oxygen Saturation - - Inhaled Oxygen Concentration - - Weight 82 kg (180 lb 12.8 oz) 10:58 AM EDT Height 162.6 cm (5' 4 ) 03/28/2024 10:5 8 AM EDT Body Mass Index 31.03 03/28/2024 10:58 AM EDT Plan of Treatment Upcoming Encounters Date Type Department Care Team (Late st Contact Info) Description 09/05/2024 3:45 PM EST Appointment [facility] Scan [address] [place] [phone] 09/15/2024 3:15 PM EDT Office Visit Thoracic Surgery - Bird In Hand [address] [place] [address] Meche Boogie PA [address], [address] [place] [address] Health Maintenance Due Date Last Done Comments Breast Cancer Screening 1955 COVID-19 Vaccine (#1) 1959 Pneumococcal Vaccine: 65+ Ye ars (1 of 2 - PCV) 1960 DTaP,Tdap,and Td Vaccines (1 - Tdap) 1973 Zoster Vaccines (1 of 2) 1973 RSV Immunization Patients 60 + Years Old (1 - Risk 60-74 years 1-dose series) 2014 Cholesterol Screening (Lipid Panel) 07/31/2023 Colorectal Cancer Screening: Colonoscopy 07/31/2023 Depression Screening 07/31/2023 Falls Risk Assessment 07/31/2023 Hepatitis C Screening 07/31/2023 Medicare Annual Wellness Visit 07/31/2023 Osteoporosis Screening (Bone Density Screening) 07/31/2023 Social Influencers of Health Screening 07/31/2023 Hypertension/CHF/CAD Annual BMP Blood Test 01/29/2024 Influenza Vaccine (#1) 2024 HIB Vaccines Aged Out No longer eligi ble based on patient's age to complete this topic HPV Vaccines Aged Out No longer eligi ble based on patient's age to complete this topic Hepatitis A Vaccines Aged Out No long er eligible based on patient's age to complete this topic Hepatitis B Vaccines Aged Out No long er eligible based on patient's age to complete this topic IPV Vaccines Aged Out No longer eligi ble based on patient's age to complete this topic MMR Vaccines Aged Out No longer eligi ble based on patient's age to complete this topic Meningococcal ACWY Vaccine Aged Out N o longer eligible based on patient's age to complete this topic RSV Immunization Patients Un roney 20 months Aged Out No longer eligible b ased on patient's age to complete this topic Varicella Vaccines Aged Out No longer eligible based on patient's age to complete this topic Care Teams Cath Lab Radiological Technologist Relationship Specialty Start Date End Date Anabelle Obrien RN [address] [facility] [address] [place] [address] PCP - General 11/07/22
--- OUTSIDE RECORDS SUMMARY | 2024-08-09 11:51 | XMS_ITS | Encounter Summary ---
Author Organization [employer] Address [address] [place] [address] Care Team Providers Care Rn Patient Care Name Role Phone Anabelle Obrine WOMENS HEALTH NURSE PRACTITIONER Primary Care Provider [phone] [place] Perkins MD Unavailable [phone] Pardeep Floyd Unavailable Beau Sterling MD Unavailable Nora Valdez Unavailable Encounter Details Date Type Department Care Team (Late st Contact Info) Description 11/03/2022 Orders Only [facility] MED & PEDS [address] [place] [address] Lilibeth Dennis LPN Social History Tobacco Use Types Packs/Day Years Used Date Smoking Tobacco: Every Day Cigarettes Smokeless Tobacco: Never Alcohol Use Standard Drinks/Week Comments Never 0 (1 standard drink = 0.6 oz pur e alcohol) Comments Unknown Sex and Gender Information Value Date Recorded Sex Assigned at Female 05/05/2022 10:27 AM EDT Legal Sex Female 10:27 AM EDT Gender Identity Female 05/05/2022 10:27 AM EDT Sexual Orientation Choose not to disclose 2021 10:27 AM EDT COVID-19 Exposure Response Date Recorded In the last 10 days, have yo u been in contact with someone who was confirmed or suspected to have Coronavirus/COVID-19? No / Unsure 10/27/2022 2:09 PM EDT documented as of this encounter Plan of Treatment Not on file documented as of this encounter Visit Diagnoses Not on filedocumented in this encounter Care Teams Rn Patient Care Relationship Specialty Start Date End Date Anabelle Obrien FNP [address] [place] [address] PCP - General Family Medicine 06/02/22 [place] Perkins MD [address] [place] [address] Cardiology 07/14/24 Pardeep Floyd [address] [place] [address] Pulmonary Disease 07/14/24 Beau Sterling MD [address] [place] [address] Nephrology 07/14/24 Nora Valdez [address]rd [place] [address] Gastroenterology 07/14/24 documented as of this encounter
--- OUTSIDE RECORDS SUMMARY | 2024-08-09 11:51 | XMS_ITS | Encounter Summary ---
Author Organization [employer] Address [address] 7[address] [place] [address] Care Team Providers Care Machining Department Supervisor Name Role Phone Anabelle Obrien Primary Care Provider [phone] Orlando Perkins MD Unavailable [phone] Pardeep Floyd Unavailable Beau Sterling MD Unavailable Nora Valdez Unavailable Encounter Details Date Type Department Care Team (Late st Contact Info) Description 08/28/2022 Orders Only [facility] MED & PEDS [address] [place], [place] [phone] Lilibeth Dennis LPN Social History Tobacco Use Types Packs/Day Years Used Date Smoking Tobacco: Never Assessed Comments Unknown Sex and Gender Information Value [...] on filedocumented in this encounter Care Teams Machining Department Supervisor Relationship Specialty Start Date End Date Anabelle Obrien FNP [address] [place], [place] [phone] PCP - General Family Medicine 06/02/22 Orlando Perkins MD [address] [place] [address] Cardiology 07/14/24 Pardeep Floyd [address] [place] [address] Pulmonary Disease 07/14/24 Beau Sterling MD [address] [place] [address] Nephrology 07/14/24 Nora Valdez [address] 3rd [place] [address] Gastroenterology 07/14/24 documented as of this encounter
--- OUTSIDE RECORDS SUMMARY | 2024-08-09 11:51 | XMS_ITS | Encounter Summary ---
Author Organization [employer] Address [address] 7[address] [place] [address] Care Team Providers Care Pl Sql Developer Name Role Phone Anabelle Obrien Primary Care Provider Orlando Perkins MD Unavailable [phone] Pardeep Floyd Unavailable Beau Sterling MD Unavailable Nora Valdez Unavailable Encounter Details Date Type Department Care Team (Late st Contact Info) Description 06/08/2023 Orders Only [facility] CHC MED & PEDS [address] [place], [place] [phone] Anabelle Obrien FNP [address] [place], [place] [phone] Hypomagnesemia (Primary Dx) Social History Tobacco Use Types Packs/Day Years Used Date Smoking Tobacco: Former Cigarettes Smokeless Tobacco: Never Alcohol Use Standard Drinks/Week Comments Never 0 (1 standard drink = 0.6 oz pur e alcohol) Depression Answer Date Recorded Patient Health Questionnaire-9 Score 0 04/02/2023 Housing Stability Answer Date Recorded What is your housing situation today? I have jennifer yoli 04/22/[address] you li [...] Procedure Name Priority Date/Time Associated Diagnosis Comments MAGNESIUM Routine 07/14/2023 11:57 AM EST Hypomagnesemia documented in this encounter Results * (ABNORMAL) Magnesium (07/14/2023 11:57 AM EST) Magnesium 1.2(LL) 1.6 - 2.6 mg/dL [facility] Comment:Critical value for t est(s): MAGS Results called to and readback by: YUKI Singh Person calling: LELINDSEY Date: 07/14/23 Time:1330 Blood Venous blood specimen / Unknown 07/14/2023 11:57 AM EST 07/14/2023 12:54 PM EST us Anabelle Obrien SPOOL FIXER LAB BLOOD ORDERABLES Final Res ult [facility] [address] [place] [phone] documented in this encounter Visit Diagnoses Diagnosis Hypomagnesemia- Primary Disorders of magnesium metabolism documented in this encounter Additional Health Concerns Assessment Noted Time PHQ-9 Depression Total Score: 0 04/02/20 23 10:05 AM EDT documented as of this encounter Care Teams Pl Sql Developer Relationship Specialty Start Date End Date Anabelle Obrien FNP [address] [place] [address] PCP - General Family Medicine 06/02/22 Orlando Perkins MD [address] [place] [address] Cardiology 07/14/24 Pardeep Floyd [address] [place] [address] Pulmonary Disease 07/14/24 Beau Sterling MD [address] [place] [address] Nephrology 07/14/24 Nora Valdez [address] 3rd [place] [address] Gastroenterology 07/14/24 documented as of this encounter
--- OUTSIDE RECORDS SUMMARY | 2024-08-09 11:51 | XMS_ITS | Encounter Summary ---
Author Organization [employer] Address [address] [place] [address] Care Team Providers Care Deliver Driver Name Role Phone Anabelle Obrien Primary Care Provider [phone] Orlando Perkins MD Unavailable [phone] Pardeep Floyd Unavailable Beau Sterling MD Unavailable Nora Valdez Unavailable Encounter Details Date Type Department Care Team (Late st Contact Info) Description 10/31/2022 Orders Only [facility] MEDICINE [address] [place] [address] Vanessa Nam LPN Social History Tobacco Use Types Packs/Day [...] on filedocumented in this encounter Care Teams Deliver Driver Relationship Specialty Start Date End Date Anabelle Obrien FNP [address] [place] [address] PCP - General Family Medicine 06/02/22 Orlando Perkins MD [address] [place] [address] Cardiology 07/14/24 Pardeep Floyd [address] [place] [address] Pulmonary Disease 07/14/24 Beau Sterling MD [address] [place] [address] Nephrology 07/14/24 Nora Valdez [address] 3rd [place] [address] Gastroenterology 07/14/24 documented as of this encounter
== END 2024-08-09 11:03 | disposition home or self-care (01) ==
PROVIDERS: PCP Registered Nurse; Visit Provider Surgery
DX: Z51.89 Encounter for other specified aftercare (principal)
CPT/HCPCS: 99024

== ENCOUNTER → 2024-08-09 10:55 | Outpatient (BNVA) | payer OTHER, SELFPAY | PROVIDERS: PCP Registered Nurse; Visit Provider Surgery | DX: Z09 Encounter for follow-up examination after completed treatment for conditions other than malignant neoplasm (principal); Z87.2 Personal history of diseases of the skin and subcutaneous tissue | CPT/HCPCS: 99212 ==

== ENCOUNTER 2024-09-13 13:15 | Outpatient (AMB) | payer OTHER, SELFPAY ==
--- NOTE | 2024-09-13 13:21 | A.OFFVIS_ITS ---
Vital Signs 09/13/24 13:22 Height 5 ft 4 in Weight 177 lb BMI 30.4 BP 110/50 L Blood Pressure Location Lt brachial Position Sitting Pulse 76 Pulse Source Pulse Oximeter Pulse Oximetry (%) 94 Oxygen Delivery Method Room Air Intake Visit Reasons: copd Intake Note: pt is here for follow up and states she is good today Clock Repair Technician Required: No Allergies ciprofloxacin [From [facility]IP[facility]] Allergy (Severe, Verified 09/13/24 13:37) ANAPHYLAXIS Medication List - Last Reconciled 09/13/24 by Naomi Floyd MD albuterol sulfate 90 mcg/actuation 2 puffs inhalation Q4-6H PRN 30 days apixaban (Eliquis) 5 mg PO BID atorvastatin 40 mg PO BEDTIME calcium carbonate-vitamin D3 600 mg-10 mcg (400 unit) 1 tab PO BEDTIME cilostazol 50 mg PO BID fluoxetine 40 mg PO BEDTIME fluticasone propion-salmeterol 250-50 mcg/dose 1 inh inhalation BID gabapentin 300 mg PO DAILY hydralazine 25 mg PO BID hydrocodone-acetaminophen 5-325 mg 1 tab PO Q4-6H PRN insulin glargine (Lantus U-100 Insulin) 15 units subcut BEDTIME insulin syringe-needle U-100 (BD Veo Insulin Syringe Ultra-Fine) As directed lisinopril 40 mg PO DAILY magnesium 200 mg PO DAILY metformin 1,000 mg PO BID metoprolol tartrate 50 mg PO BID omeprazole 20 mg PO DAILY sitagliptin phosphate (Januvia) 100 mg PO DAILY umeclidinium 62.5 mcg/actuation (Incruse Ellipta) 1 inh inhalation DAILY verapamil ER 300 mg PO BEDTIME Do you need a note to return to daycare/school/sports/work: No HPI HPI copd: Details: THIS 69 YEARS OLD VERY PLEASANT FEMALE IS HERE FOR FOLLOW-UP AFTER 4 MONTHS. FROM THE COPD POINT OF VIEW SHE IS DOING. OKAY AND RELATIVELY STABLE SHE CONTINUES TO USE FLUTICASONE-SALMETEROL 250-50 1 INHALATION B.I.D., AND USES ALBUTEROL HFA ONCE IN A WHILE FOR ACUTE SYMPTOMS. DENIES ANY COUGH OR EXPECTORATION. DENIES ANY WHEEZING ATTACKS. ON HER LAST VISIT SHE HAD A 6 MINUTES WALK AND FOUND TO HAVE EXERCISE INDUCED HYPOXEMIA. O2 EQUIPMENT WAS ORDERED BUT SHE DECLINED TO USE THE OXYGEN. AT HOME SHE WALKS SLOWLY AND DOES NOT GO OUTDOORS MUCH. SO SHE DOES NOT WANT TO USE OXYGEN. [facility] Medical History (Updated 09/13/24 @ 13:45 by Naomi Floyd MD) CAD (coronary artery disease) Supplemental oxygen dependent Hx of cancer of uterus Salmonella Hypoxemia History of uterine cancer Type 2 diabetes mellitus, with long-term current use of insulin COPD (chronic obstructive pulmonary disease) Smoker PVD (peripheral vascular disease) Osteoporosis Family history of colon cancer Anxiety Dyslipidemia HTN (hypertension) Surgical History (Updated 08/09/24 @ 11:10 by Kd Witt MD) Hx of surgical procedure (07/28/24) History of lung surgery History of bunionectomy of left great toe History of colonoscopy (06/13/24) History of pubovaginal sling History of hysterectomy Family History Brother Colon cancer Social History Household Members: Family Housing: House Are you a primary residential caregiver to a significant other at home: No Do you presently have visiting nurse or other home services: No Alcohol intake: never Patient Tobacco Use Status: Former Tobacco user Tobacco use type: Cigarette Cigarettes Per Day: 15 service: No Review of Systems Const All systems reviewed & are unremarkable except as noted in HPI and below Eyes Reports no additional complaints ENT Reports no additional complaints Card Denies chest pain, Denies irregular heart rhythm and Denies leg edema Resp Reports as per HPI GI Reports heartburn (GERD symptoms controlled with omeprazole) Reports no additional complaints Musc Reports no additional complaints Skin/Breast Reports system reviewed and no additional complaints, except as documented Neuro Reports no additional complaints Psych Reports depression (Controlled with medicine) Physical Exam Vital Signs: Last Vital Signs Pulse 76 09/13/24 13:22 BP 110/50 L 09/13/24 13:22 Pulse Ox 94 09/13/24 13:22 Oxygen Delivery Method Room Air 09/13/24 13:22 BMI result Body Mass Index 30.4 Const General: comfortable, no acute distress, alert and awake Orientation/consciousness: patient oriented x3 HEENT Head: Yes normal to inspection General nose exam: No nasal polyps present and No nasal discharge present Face and sinus: Yes sinuses nontender Mouth: oropharynx normal Throat: Yes posterior oropharynx normal Eyes General: appearance normal, both eyes and all related structures Neck Neck: Yes normal visual inspection, Yes no lymphadenopathy, Yes trachea midline and Yes no JVD Thyroid: Thyroid normal Chest Chest palpation & inspection: normal inspection of the chest (Except that she has, small surgical scars from thoracostomy over left lower), normal palpation of entire chest wall and no tenderness Resp Other: Percussion note hyper-resonant, breath sounds are distant with prolonged expiratory phase. No wheezes or rhonchi are heard today. Left lower chest is also well aerated Cardio Palpation: normal PMI Rate: regular rate Rhythm: regular rhythm Heart sounds: no gallops and no murmurs GI Palpation (GI): Soft to palpation, nontender, No hepatosplenomegaly present and no masses Auscultation: normal bowel sounds Back/Spine/Pelvis Thoracic/Lumbar Spine: thoracic and lumbar spine normal to inspection Skin General skin exam: no rashes or lesions noted Neuro General: patient oriented x3 and no focal motor deficits Cranial nerves: Yes CN's II-XII intact bilaterally Extrem General: Yes normal to inspection, Yes no clubbing, cyanosis or edema and Yes no calf tenderness Psych Appearance: grossly normal and well kempt Speech and movement: Normal speech and movement present Assessment & Plan Assessment & Plan (1) Smoker: Comment: HAS HISTORY OF LIFELONG SMOKING. FINALLY QUIT SINCE SURGERY ON 03/18/2023 DENIES ANY URGE TO GO BACK TO SMOKING. Code(s): F17.200 - Nicotine dependence, unspecified, uncomplicated Category: Social Hx Plan: STRESSED THAT SHE SHOULD NOT GO BACK TO SMOKING AT ALL. (2) COPD (chronic obstructive pulmonary disease): Comment: PATIENT HAS CHRONIC OBSTRUCTIVE PULMONARY DISEASE, MODERATELY SEVERE . WELL CONTROLLED AND STABLE AT THIS TIME. Code(s): J44.9 - Chronic obstructive pulmonary disease, unspecified Category: Medical Plan: FLUTICASONE-SALMETEROL 250-51 INHALATION B.I.D.. ALBUTEROL HFA 2 PUFFS Q 4-6 HOURS ONLY P.R.N.. 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 Code(s): R91.1 - Solitary pulmonary nodule Category: Medical Plan: SHE STILL NEEDS THE CLOSE MONITORING (4) Hypoxemia: Comment: POST SURGICAL PROCEDURE ,SHE WAS FOUND TO HAVE MILD HYPOXEMIA ON EXERTION. SHE WAS STARTED. ON O2 1 L/MINUTE SUBSEQUENTLY SHE QUIT USING O2 , EXCEPT ONLY WHEN FEELING SOME DISTRESS AND SINCE LAST VISIT SHE HAS NOT NEEDED TO USE IT. ON HER LAST VISIT SHE HAD A 6 MINUTES WALK TEST AND FOUND TO HAVE EXERCISE INDUCED HYPOXEMIA. SHE WAS ADVISED USE O2 1 L/MINUTE WITH ANY PHYSICAL EXERTION OR GOING OUTDOORS HOWEVER SHE DECLINED TO USE OXYGEN. SHE DOES NOT WALK MUCH EVEN IN THE HOUSE. AND WHEN SHE IS WALKING IN THE HOUSE GOING UP AND DOWNSTAIRS HER O2 SAT REMAINS AROUND 90%. Code(s): R09.02 - Hypoxemia Category: Medical Plan: ADVISED TO DO DEEP BREATHING EXERCISES. HAVE O2 SAT CHECKED FREQUENTLY WHEN WALKING UP OR DOWN STAIRS . Coding Level of Care Code Est Pt Level 3 (48107) Diagnoses Smoker F17.200 COPD (chronic obstructive pulmonary disease) J44.9 Pulmonary nodule R91.1 Hypoxemia R09.02
[2024-09-13 13:22] VITALS: BP 110/50; PULSE 76; O2SAT 94; BMI 30.4
--- OUTSIDE RECORDS SUMMARY | 2024-09-13 16:03 | XMS_ITS | Encounter Summary ---
Author Organization [employer] Address [address] [place] [address] Care Team Providers Care Federal Judicial Law Clerk Name Role Phone Anabelle Obrien Primary Care Provider [phone] Orlando Perkins MD Unavailable [phone] Pardeep Flyod Unavailable Beau Sterling MD Unavailable Nora Valdez Unavailable Encounter Details Date Type Department Care Team (Late st Contact Info) Description 10/31/2022 Orders Only [facility] MEDICINE [address] [place] [address] Vanessa Nam LPN Social History Tobacco Use [...] on filedocumented in this encounter Care Teams Federal Judicial Law Clerk Relationship Specialty Start Date End Date Anabelle Obrien FNP [address] [place] [address] PCP - General Family Medicine 06/02/22 Orlando Perkins MD [address] [place] [address] Cardiology 07/14/24 Pardeep Floyd [address] [place] [address] Pulmonary Disease 07/14/24 Beau Sterling MD [address] [place] [address] Nephrology 07/14/24 Nora Valdez [address] 3rd [place] [address] Gastroenterology 07/14/24 documented as of this encounter
--- OUTSIDE RECORDS SUMMARY | 2024-09-13 16:03 | XMS_ITS | Encounter Summary ---
Author Organization [employer] Address [address] [address] [place] [address] Care Team Providers Care Electrical Prospector Name Role Phone Anabelle Obrien GRADES 7 AND 8 VISITING TEACHER Primary Care Provider [phone] Orlando Perkins MD Unavailable [phone] Pardeep Floyd Unavailable Beau Sterling MD Unavailable Nora Valdez Unavailable Encounter Details Date Type Department Care Team (Late st Contact Info) Description 11/03/2022 Orders Only [facility] CHC MED & PEDS [address] [place] [address] Lilibeth Dennis LPN Social History Tobacco Use [...] on filedocumented in this encounter Care Teams Electrical Prospector Relationship Specialty Start Date End Date Anabelle Obrien FNP [address] [place] [address] PCP - General Family Medicine 06/02/22 Orlando Perkins MD [address] [place] [address] Cardiology 07/14/24 Pardeep Floyd [address] [place] [address] Pulmonary Disease 07/14/24 Beau Sterling MD [address] [place] [address] Nephrology 07/14/24 Nora Valdez [address]rd [place] [address] Gastroenterology 07/14/24 documented as of this encounter
--- OUTSIDE RECORDS SUMMARY | 2024-09-13 16:03 | XMS_ITS | Encounter Summary ---
Author Organization [employer] Address [address] [facility] [facility] [address] [facility] [address] [place] [address] Care Team Providers Care Auto Slip Cover Installer Name Role Phone Anabelle Obrien Primary Care Provider [phone] Orlando Perkins MD Unavailable [phone] Pardeep Floyd Unavailable Beau Sterling MD Unavailable Nora Valdez Unavailable Encounter Details Date Type Department Care Team (Late st Contact Info) Description 08/28/2022 Orders Only [facility] CHC MED & PEDS [address] [place], [place] [phone] Lilibeth Dennis LPN Social History Tobacco Use [...] on filedocumented in this encounter Care Teams Auto Slip Cover Installer Relationship Specialty Start Date End Date Anabelle Obrien FNP [address] [place], [place] [phone] PCP - General Family Medicine 06/02/22 Orlando Perkins MD [address] [place] [address] Cardiology 07/14/24 Pardeep Floyd [address] [place] [address] Pulmonary Disease 07/14/24 Beau Sterling MD [address] [place] [address] Nephrology 07/14/24 Nora Valdez [address] 3rd [place] [address] Gastroenterology 07/14/24 documented as of this encounter
--- OUTSIDE RECORDS SUMMARY | 2024-09-13 16:03 | XMS_ITS | Encounter Summary ---
Author Organization [employer] Address [address] [place] [address] Care Team Providers Care Shipping And Receiving Weigher Name Role Phone Anabelle Obrien Primary Care Provider [phone] Orlando Perkins MD Unavailable [phone] Pardeep Floyd Unavailable Beau Sterling MD Unavailable Nora Valdez Unavailable Encounter Details Date Type Department Care Team (Late st Contact Info) Description 05/21/2023 Abstract [facility] MEDICINE [address] [place], [place] [phone] Syl Robert Social History Tobacco Use Types [...] documented as of this encounter Care Teams Shipping And Receiving Weigher Relationship Specialty Start Date End Date Anabelle Obrien FNP [address] [place] [address] PCP - General Family Medicine 06/02/22 Orlando Perkins MD [address] [place] [address] Cardiology 07/14/24 Pardeep Floyd [address] [place] [address] Pulmonary Disease 07/14/24 Beau Sterling MD [address] [place] [address] Nephrology 07/14/24 Nora Valdez [address] [place] [address] Drive 3rd [place] [address] Gastroenterology 07/14/24 documented as of this encounter
--- OUTSIDE RECORDS SUMMARY | 2024-09-13 16:03 | XMS_ITS | Encounter Summary ---
Author Organization [employer] Address [address] [place] [address] Care Team Providers Care Wheat And Oats Flake Miller Name Role Phone Anabelle Obrien RN Primary Care Provider Reason for Referral * Imaging (Routine) - Closed Specialty Diagnoses / Procedures Referred By Manju velarde Referred To Contact Radiology Diagnoses History of lung cancer Procedures CT Chest wo Contrast Clara Carey NP [address] [address] Phone: tel: fax: [facility] Referral ID Status Reason Start Date Expiration Date Visits Re quested Visits Authorized [id number] Closed 07/15/2024 07/15/2025 1 1 Reason for Visit * Imaging (Routine) - Closed Specialty Diagnoses / Procedures Referred By Manju velarde Referred To Contact Radiology Diagnoses History of lung cancer Procedures CT Chest wo Contrast Clara Carey NP [address] [address] Phone: tel: fax: [facility] Referral ID Status Reason Start Date Expiration Date Visits Re quested Visits Authorized [id number] Closed 07/15/2024 07/15/2025 1 1 Encounter Details Date Type Department Care Team (Latest Contact Info) Description 09/05/2024 3:19 PM EST - 09/05/2024 11:59 PM EST Hospital Encounter [facility] CT Scan [address] [place] [id number] History of lung cancer Discharge Disposition: Home or Self Care Social History Tobacco Use Types Packs/Day Years Used Date Smoking Tobacco: Former Cigarettes Q uit: 03/17/2023 Smokeless Tobacco: Never Comments Unknown Sex and Gender Information Value Date Recorded Sex Assigned at Female 09/02/2024 2:11 PM EST Legal Sex Female 8:44 PM EST Gender Identity Female 09/02/2024 2:11 PM EST Sexual Orientation Straight 09/05/2024 3: 18 PM EST documented as of this encounter Medications at Time of Discharge albuterol HFA (PROAIR HFA ; PROVENTIL HFA ; VENTOLIN HFA) 90 mcg/actuation inhaler Inhale 2 puffs by mouth every 4 (four) hours if needed. apixaban (ELIQUIS) 5 mg tablet Take 5 mg by mouth 2 times daily. aspirin 81 mg EC tablet Take 1 tablet (81 mg total) by mouth 1 (one) time each day. atorvastatin (LIPITOR) 40 mg tablet Take 1 tablet (40 mg total) by mouth 1 (one) time each day. calcium carbonate/vitamin D3 (CALCIUM CARBONATE-VITAMIN D PO) Take 1 Tablet by mouth daily. cilostazoL (PLETAL) 50 mg tablet Take 1 tablet (50 mg total) by mouth 2 (two) times a day. FLUoxetine (PROzac) 40 mg capsule Take 1 capsule (40 mg total) by mouth 1 (one) time each day. fluticasone propion-salmetero L (ADVAIR DISKUS) 500-50 mcg/dose diskus inhaler Inhale 1 Inhaler into the lungs 2 times daily. gabapentin (GRALISE) 300 mg 24 hr tablet Take 1 tablet (300 mg total) by mouth 1 (one) time each day. hydrALAZINE (APRESOLINE) 25 mg tablet Take 1 tablet (25 mg total) by mouth 2 (two) times a day. insulin glargine (LANTUS) 100 unit/mL injection Inject 10 Units into the skin at bedtime. lisinopril (PRINIVIL,ZESTRIL ) 40 mg tablet Take 1 tablet (40 mg total) by mouth 1 (one) time each day. metFORMIN (GLUCOPHAGE) 1,000 mg tablet Take 1 Tablet by mouth 2 times daily (with meals). methylcellulose, laxative, 500 mg tablet Take 1 tablet by mouth 2 (two) times a day. metoprolol tartrate (LOPRESSOR) 100 mg tablet Take 1 tablet (100 mg total) by mouth 2 (two) times a day. nitrofurantoin, macrocrystal-mono hydrate, (MACROBID) 100 mg capsule Take 1 capsule (100 mg total) by mouth 2 (two) times a day. omeprazole (PriLOSEC) [address] capsule Take 1 capsule (20 mg total) by mouth 1 (one) time each day. SITagliptin phosphate (Januvia) 50 mg tablet Take 1 tablet (50 mg total) by mouth 1 (one) time each day. tiotropium (Spiriva with HandiHaler) 18 mcg per inhalation capsule Inhale 1 Capsule into the lungs daily. documented as of this encounter Discharge Disposition Disposition Code Departure Means Destination Home or Self Care documented in this encounter Plan of Treatment Upcoming Encounters Date Type Department Care Team ([facility] st Contact Info) Description 09/15/2024 3:15 PM EDT Office Visit Thoracic Surgery - [address] [place] [id number] Meche Boogie PA [address] [place] [address], [address] [place] [address] documented as of this encounter Procedures Procedure Name Priority Date/Time Associated Diagnosis Comments CT CHEST WO CONTRAST Routine 09/05/2024 3:25 PM EST History of lung cancer documented in this encounter Results * CT Chest wo Contrast (09/05/2024 3:25 PM EST) Anatomical Region Laterality Modality Body Computed Tomogra phy 09/07/2024 1:02 PM EST Impressions 09/07/2024 1:14 PM EST Impression: 1. Left lower lobectomy sequelae. 2. No suspicious developing pulmonary nodule or thoracic lymphadenopathy. 3. Trace residual left pleural effusion, improved. Telekaila CHANDLER ([id number]) -------- FINAL REPORT -------- Dictated By: Christy Rodriguez Dictated Date: 09/07/2024 13:02 ET Assigned Physician: Christy Rodriguez Reviewed and Electronically Signed By: Christy Rodriguez Signed Date: 09/07/2024 13:14 ET Workstation ID: [id number] Transcribed By: Self Edit Transcribed Date: 09/07/2024 13:02 ET Narrative 09/07/2024 1:14 PM EST History: Lung carcinoma. Status post left lower lobectomy in 2022. Surveillance imaging. Comparison: 03/21/24 Technique: Helical volumetric imaging of the thorax was performed without IV contrast. DLP: 329.71 mGy/cm [employer] [place] Iterative reconstruction technique Findings: Left lower lobectomy sequelae are again noted. The trachea and remaining central bronchial tree are patent. Diffuse bronchial wall thickening is again seen, consistent with bronchitis in this setting. 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 Numerous tiny calcified pulmonary nodules are again seen, consistent with old granulomatous disease. A 4 mm solid, noncalcified juxtapleural nodule is seen in the right lower lobe (image 173 series 3), visible dating back to the initial, [address] and without significant change. No suspicious developing nodule is seen. A trace residual loculated pleural effusion is seen at the base of the left hemithorax, improved since 2023. No pericardial effusion is seen. The heart remains normal in size. Three-vessel coronary artery calcification is again noted and there is moderate atherosclerotic calcification of the thoracic aorta. A borderline prevascular space lymph node is unchanged. No developing thoracic lymphadenopathy is seen. A small portion of the upper abdomen included on the lowest images through the thorax is remarkable for a small hiatal hernia and severe atherosclerotic calcification at the SMA origin. Old, healed left rib fractures are noted. Procedure Note Christy Rodriguez MD - 09/07/2024 History: Lung carcinoma. Status post left lower lobectomy in 2022.Surveillance imaging. Comparison: 03/21/24 Technique: Helical volumetric imaging of the thorax was performed withoutIV contrast. DLP: 329.71 mGy/cm [employer] Iterative reconstruction technique Findings: Left lower lobectomy sequelae are again noted. The trachea and remainingcentral bronchial tree are patent. Diffuse bronchial wall thickening isagain seen, consistent with bronchitis in this setting. There is severe emphysematous destruction of the pulmonary parenchyma.Numerous tiny calcified pulmonary nodules are again seen, consistent withold granulomatous disease. A 4 mm solid, noncalcified juxtapleural nodule is seen in the right lowerlobe (image 173 series 3), visible dating back to the initial, thoracic CT and without significant change. No suspiciousdeveloping nodule is seen. A trace residual loculated pleural effusion is seen at the base of theleft hemithorax, improved since 2023. No pericardial effusion is seen. The heart remains normal in size. Three-vessel coronary arterycalcification is again noted and there is moderate atheroscleroticcalcification of the thoracic aorta. A borderline prevascular space lymphnode is unchanged. No developing thoracic lymphadenopathy is seen. A small portion of the upper abdomen included on the lowest images throughthe thorax is remarkable for a small hiatal hernia and severeatherosclerotic calcification at the SMA origin. Old, healed left rib fractures are noted. IMPRESSION: Impression: 1. Left lower lobectomy sequelae. 2. No suspicious developing pulmonary nodule or thoraciclymphadenopathy. 3. Trace residual left pleural effusion[place] ([id number]) -------- FINAL REPORT -------- Dictated By: Christy Rodriguez Dictated Date: 09/07/2024 13:02 ET Assigned Physician: Christy Rodriguez Reviewed and Electronically Signed By: Christy Rodriguez Signed Date: 09/07/2024 13:14 ET Workstation ID: [id number] Transcribed By: Self Edit Transcribed Date: 09/07/2024 13:02 ET Clara Carey GLUING CREW LEADER IMG CT PROCEDURES Final Res ult documented in this encounter Visit Diagnoses Diagnosis History of lung cancer Personal history of malignant neoplasm of bronchus and lung documented in this encounter Care Teams Wheat And Oats Flake Miller Relationship Specialty Start Date End Date Anabelle Obrien RN [address] [address] PCP - General 11/07/22 documented as of this encounter
--- OUTSIDE RECORDS SUMMARY | 2024-09-13 16:03 | XMS_ITS | Encounter Summary ---
Author Organization [employer] Address [address] [place] [address] Care Team Providers Care Forestry Technician Name Role Phone Anabelle Obrien Primary Care Provider [phone] Orlando Perkins MD Unavailable [phone] Pardeep Floyd Unavailable Beau Sterling MD Unavailable Nora Valdez Unavailable Encounter Details Date Type Department Care Team (Late st Contact Info) Description 06/08/2023 Orders Only [facility] MED & PEDS [address] [place], [place] [phone] Anabelle Obrien FNP [address] [place], [place] [phone] Hypomagnesemia (Primary Dx) Social History Tobacco Use [...] EST) Magnesium 1.2(LL) 1.6 - 2.6 mg/dL [facility] Comment:Critical value for t est(s): MAGS Results called to and readback by: YUKI Singh Person calling: LELINDSEY Date: 07/14/23 Time:1330 Blood Venous blood specimen / Unknown 07/14/2023 11:57 AM EST 07/14/2023 12:54 PM EST us Anabelle Obrien ZIPPER REPAIRER LAB BLOOD ORDERABLES Final Res ult [facility] [address] [place] [phone] documented in this encounter Visit Diagnoses Diagnosis Hypomagnesemia- Primary Disorders of magnesium metabolism documented in this encounter Additional Health Concerns Assessment Noted Time PHQ-9 Depression Total Score: 0 04/02/20 23 10:05 AM EDT documented as of this encounter Care Teams Forestry Technician Relationship Specialty Start Date End Date Anabelle Obrien FNP [address] [place] [address] PCP - General Family Medicine 06/02/22 Orlando Perkins MD [address] [place] [address] Cardiology 07/14/24 Pardeep Floyd [address] [place] [address] Pulmonary Disease 07/14/24 Beau Sterling MD [address] [place] [address] Nephrology 07/14/24 Nora Valdez [address] 3rd [place] [address] Gastroenterology 07/14/24 documented as of this encounter
--- OUTSIDE RECORDS SUMMARY | 2024-09-13 16:04 | XMS_ITS | Encounter Summary ---
Author Organization [employer] Address [address] [place] [address] Care Team Providers Care Pharmacy Buyer Name Role Phone Anabelle Obrien Primary Care Provider [phone] Orlando Perkins MD Unavailable [phone] Pardeep Floyd Unavailable Beau Sterling MD Unavailable Nora Valdez Unavailable Reason for Visit * Reason Comments Med Refill Encounter Details Date Type Department Care Team (Late st Contact Info) Description 08/28/2024 Refill [facility] CHC MED & PEDS [address] [place], [place] [phone] Anabelle Obrien FNP [address] [place], [place] [phone] Routine health maintenance Social History Tobacco Use Types Packs/Day Years [...] the past 12 months, has t he [employer], gas, oil or water company threatened to [...] as of this encounter Visit Diagnoses Diagnosis Routine health maintenance Unspecified examination documented in this encounter Additional Health Concerns Assessment Noted Time PHQ-9 Depression Total Score: 4 07/14/19 25 4:51 PM EST documented as of this encounter Care Teams Pharmacy Buyer Relationship Specialty Start Date End Date Anabelle Obrien FNP [address] [place] [address] PCP - General Family Medicine 06/02/22 Orlando Perkins MD [address] [place] [address] Cardiology 07/14/24 Pardeep Floyd [address] [place] [address] Pulmonary Disease 07/14/24 Beau Sterling MD [address] [address] Nephrology 07/14/24 Nora Valdez [address] [place] [address] Gastroenterology 07/14/24 documented as of this encounter
--- OUTSIDE RECORDS SUMMARY | 2024-09-13 16:04 | XMS_ITS | Encounter Summary ---
Author Organization [employer] Address [address] [place] [address] Care Team Providers Care Office Aide Name Role Phone Anabelle Obrien Primary Care Provider [phone] Orlando Perkins MD Unavailable [phone] Pardeep Floyd Unavailable Beau Sterling MD Unavailable Nora Valdez Unavailable Reason for Visit * Reason Comments Med Refill Encounter Details Date Type Department Care Team (Late st Contact Info) Description 08/24/2024 Refill [facility] CHC MED & PEDS [address] [place], [place] [phone] Anabelle Obrien FNP [address] [place], [place] [phone] Chronic obstructive pulmonary disease, unspecified COPD type (CMS/HCC) Social History Tobacco Use Types Packs/Day Years [...] as of this encounter Visit Diagnoses Diagnosis Chronic obstructive pulmonary disease, unspecified COPD type (CMS/HCC) documented in this encounter Additional Health Concerns Assessment Noted Time PHQ-9 Depression Total Score: 4 07/14/19 25 4:51 PM EST documented as of this encounter Care Teams Office Aide Relationship Specialty Start Date End Date Anabelle Obrien FNP 230 [place] [address] PCP - General Family Medicine 06/02/22 Orlando Perkins MD [address] [place] [address] Cardiology 07/14/24 Pardeep Floyd [address] [place] [address] Pulmonary Disease 07/14/24 Beau Sterling MD [address] [place] [address] Nephrology 07/14/24 Nora Valdez [address] [place] [address] Gastroenterology 07/14/24 documented as of this encounter
--- OUTSIDE RECORDS SUMMARY | 2024-09-13 16:04 | XMS_ITS | Encounter Summary ---
Author Organization [employer] Address [address] [place] [address] Care Team Providers Care Institutional Aide Name Role Phone Anabelle Obrien Primary Care Provider [phone] Orlando Perkins MD Unavailable Pardeep Floyd Unavailable Beau Sterling MD Unavailable Nora Valdez Unavailable Reason for Visit * Reason Onset Date Comments TC: Switch for Insurance Formulary 08/23/2024 Encounter Details Date Type Department Care Team (Late st Contact Info) Description 08/23/2024 Telephone [facility] CHC MED & PEDS [address] [place], [place] [phone] Anabelle Obrein FNP [address] [place], [place] [phone] TC: Switch for Insurance Formulary Social History Tobacco Use Types Packs/Day Years [...] the past 12 months, has t he [employer], gas, oil or water [employer] threatened to shut off services in your [...] encounter Miscellaneous Notes * Telephone Encounter - Mone Young RN - 08/25/2024 10:16 AM EST TC to patient with using [employer] 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 No answer and voicemail left to returncall to office. * Telephone Encounter - DEMETRICE Rodgers - 08/23/2024 4:16 PM EST Received message that [facility] will no longer cover Advair for her COPD. She is currently following [facility] Pulm - Dr. Floyd. However, some of her inhalers have been sent by PCP office in the past. Please call pt/PIPELINE TECHNICIAN to let them know that she will need to switch inhalers for COPD per insurance. Would be ideal for them to reach out to Pulm as they are managing her COPD. However, if any difficulties, please give us a call back. Thank you. documented in this encounter Plan of Treatment Not on file documented as of this encounter Visit Diagnoses Not on filedocumented in this encounter Additional Health Concerns Assessment Noted Time PHQ-9 Depression Total Score: 4 07/14/19 25 4:51 PM EST documented as of this encounter Care Teams Institutional Aide Relationship Specialty Start Date End Date Anabelle Obrien FNP 230 [place] [address] PCP - General Family Medicine 06/02/22 Orlando Perkins MD [address] [place] [address] Cardiology 07/14/24 Pardeep Floyd [address] [place] [address] Pulmonary Disease 07/14/24 Beau Sterling MD [address] [place] [address] Nephrology 07/14/24 Nora Valdez [address] [place] [address] Gastroenterology 07/14/24 documented as of this encounter
--- OUTSIDE RECORDS SUMMARY | 2024-09-13 16:04 | XMS_ITS | Clinical Summary ---
Author Organization [employer] Address [address] [facility] [address] [place] [address] Care Team Providers Care Serology Technician Name Role Phone Anabelle Obrien Primary Care Provider [phone] Orlando Perkins MD Unavailable Pardeep Floyd Unavailable Beau Sterling MD Unavailable Nora Valdez Unavailable Allergies Active Allergy Reactions Criticality Noted Date Comments Ciprofloxacin 08/10/2014 Medications * This document contains information received from the source organization and may not represent a complete record from that organization. lisinopril 40 MG tablet Take 40 mg by mouth in the morning. 023 Active Blood Glucose Monitoring Suppl (ONE TOUCH ULTRA 2) w/Device kit USE TO CHECK BLOOD SUGAR FOUR TIMES DAILY 1 kit 023 Active alendronate (Fosamax) 70 MG tablet take 1 tablet once a week with 6 to 8 oz of water 30 min before first food of day. do not lie down for 30 minutes 12 tablet 023 Active Additional Information Patient not taking.Reported on 03/03/2024 cilostazol (Pletal) 50 MG tablet Take 50 mg by mouth 2 times daily. 023 Active hydrALAZINE (Apresoline) 25 MG tablet Take 25 mg by mouth 2 times daily. 023 Active nicotine (Nicoderm, Step 2) 14 MG/24HR patch APPLY 1 PATCH TOPICALLY TO THE SKIN IN THE MORNING DO NOT SMOKE WHILE USING PATCH 023 Active nicotine (Nicoderm CQ) 7 MG/24HR patchIndications: Cigarette nicotine dependence in remission After completion of 14mg/day patch: Apply 1 patch on the skin (one) time each day at the same time x 6 weeks. 48 patch Active Continuous Blood Gluc Supply Chain Business Analyst (FreeStyle Reena 2 [place]) deviceIndications :Type 2 diabetes mellitus with hyperglycemia, without long-term current use of insulin ([facility]) Scan sensor every 8 hours 1 each Active Continuous Blood Gluc Sensor (FreeStyle Reena 2 Sensor) miscIndications:T ype 2 diabetes mellitus with hyperglycemia, without long-term current use of insulin ([facility]) Apply 1 sensor every 14 days 2 each Active SITagliptin (Januvia) 100 MG tablet TAKE 1 TABLET BY MOUTH EVERY MORNING 90 tablet 3 Active Umeclidinium [place] (Incruse Ellipta) 62.5 MCG/ACT aerosol powderIndications :Chronic obstructive pulmonary disease, unspecified COPD type ([facility]) INHALE 1 PUFF BY MOUTH EVERY DAY AT THE SAME TIME 30 each Active OneTouch Ultra Test test stripIndications: Type 2 diabetes mellitus with hyperglycemia, without long-term current use of insulin ([facility]) TEST BLOOD SUGAR FOUR TIMES DAILY 100 strip Active Lancets (OneTouch Delica Plus [id number]) miscIndications:T ype 2 diabetes mellitus with hyperglycemia, without long-term current use of insulin ([facility]) TEST BLOOD SUGAR FOUR TIMES DAILY 100 each 11 Active Eliquis 5 MG tablet Take 1 tablet by mouth 2 times daily. Active Blood Pressure kit Use to check blood pressure once daily and when symptomatic 1 kit Active gabapentin (Neurontin) 300 MG capsuleIndication s:Lumbar radiculopathy TAKE 1 CAPSULE BY MOUTH AT BEDTIME 90 capsule 3 Active Lantus SoloStar 100 UNIT/ML pen INJECT 15 UNITS SUBCUTANEOUSLY AT BEDTIME 15 mL 11 Active Pentips 32G X 4 MM misc USE DIRECTED TO INJECT INSULIN 100 each 11 Active meclizine (Antivert) 25 MG tabletIndications :Dizziness TAKE 1/2 TABLET BY MOUTH THREE TIMES DAILY IN THE MORNING, AT NOON, AND AT BEDTIME NEEDED FOR DIZZINESS 30 tablet 2 024 Active metFORMIN (Glucophage) 1000 MG tabletIndications :Type 2 diabetes mellitus without complications (CMS/HCC) TAKE 1 TABLET BY MOUTH TWICE DAILY IN THE MORNING AND IN THE EVENING WITH FOOD 180 tablet 3 024 Active Calcium Carb-Cholecalcife rol 600-10 MG-MCG tabletIndications :Type 2 diabetes mellitus treated with insulin (CMS/HCC) TAKE 1 TABLET BY MOUTH EVERY MORNING 90 tablet 3 024 Active FLUoxetine (PROzac) 40 MG capsuleIndication s:Dysthymic disorder TAKE 1 CAPSULE BY MOUTH EVERY MORNING 90 capsule 3 024 Active cyanocobalamin (Vitamin B-12) 1000 MCG tablet TAKE 1 TABLET BY MOUTH EVERY EVENING 3 TIMES A WEEK ON THURSDAY, THURSDAY AND THURSDAY 90 tablet 1 024 Active hydrOXYzine pamoate (Vistaril) 25 MG capsuleIndication s:Anxiety TAKE 1 CAPSULE BY MOUTH THREE TIMES DAILY NEEDED FOR ANXIETY 90 capsule 3 024 Active famotidine (Pepcid) 20 MG tabletIndications :Gastroesophageal reflux disease, unspecified whether esophagitis present Take 1 tablet (20 mg) by mouth if needed in the morning and at bedtime for heartburn or indigestion. 60 tablet 11 025 2025 Active metoprolol tartrate (Lopressor) 100 MG tabletIndications :Essential hypertension,Paro xysmal atrial fibrillation (CMS/HCC) TAKE 1 TABLET BY MOUTH TWICE DAILY IN THE MORNING AND IN THE EVENING 024 Active Fluticasone-Salme terol 250-50 MCG/ACT aerosol powderIndications :Chronic obstructive pulmonary disease, unspecified COPD type (CMS/HCC) INHALE 1 PUFF BY MOUTH TWICE DAILY RINSE MOUTH AFTER USING. 60 each 025 Active atorvastatin (Lipitor) 40 MG tabletIndications :Hyperlipidemia, unspecified hyperlipidemia type TAKE 1 TABLET BY MOUTH EVERY EVENING 180 tablet 3 025 Active atorvastatin (Lipitor) 40 MG tabletIndications :Hyperlipidemia, unspecified hyperlipidemia type Take 1 tablet (40 mg) by mouth at bedtime. (For cholesterol) 180 tablet 3 024 2024 Discontinued Fluticasone-Salme terol 250-50 MCG/ACT aerosol powderIndications :Chronic obstructive pulmonary disease, unspecified COPD type (CMS/HCC) INHALE 1 PUFF BY MOUTH TWICE DAILY. RINSE MOUTH AFTER USING. 60 each 3 024 2024 Discontinued Active Problems Problem Noted Date Diagnosed Date [...] neck Plan: excision/removal by Dr. Witt - [facility] Surgery - following discussion w/ cards regarding [...] Family history of colon CA Following with [facility] GI Last colonoscopy 2021, plan for repeat [...] w/ mag supplement. Referred to Nephrology 09/15/23: [facility] - Dr. Beau Sterling. 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 Discontinued PPI, and ordered additional lab work Continue magnesium 200mg daily Assessment & Plan (07/14/2024 4:37 PM EST): Last consult Jun 2024. Cont as above. Healthcare maintenance 05/13/2023 Overview (07/14/2024): Mammo: BIRADS 1 on 01/13/24 OPH: January 2023 w/ Dr. Allison at [facility]. (+) proliferative diabetic retinopathy. Plan for follow up in 1 year. Colonoscopy: 06/13/24 at [facility]. 1 polyp removed. Repeat in 5 years. Paroxysmal atrial fibrillation 04/02/2023 Assessment & Plan (07/14/2024 4:35 PM EST): Following with ZULLY Perkins Previous medication: verapamil 120mg in the AM Afib during hospitalization in Feb 2024 - possibly triggered by diarrhea and electrolyte imbalance Continues on Eliquis 5mg BID and metoprolol 100mg BID Assessment & Plan (03/07/2024 11:53 AM EDT): Following with ZULLY Perkins Previous medication: verapamil 120mg in the AM Confirm discontinuation with Cards Afib during hospitalization in Feb 2024 - possibly triggered by diarrhea and electrolyte imbalance Continues on Eliquis 5mg BID and metoprolol 50mg BID Assessment & Plan (01/15/2024 11:22 AM EDT): Following with ZULLY Perkins Continues with verapamil 120mg in the AM Adenocarcinoma of left lung 11/09/2022 Overview (04/11/2024): Lung CA screening completed 4/11/23 at [facility]. Ordered by Crystal CHANDLER Pack year history: [...] CONTINUE TO FOLLOW-UP WITH DR. HARRIS 09/29/23: [facility] CT Chest w/o contrast (Dr. Harris) - impression: surgical changes in the left chest without evidence of recurrent disease. 03/28/24: [place] CT Chest (Dr. Harris) - Impression: Left [...] Plan (01/15/2024 11:24 AM EDT): Following with [facility] - Dr. Perkins. Continues on cilostazol 50mg [...] lung disease 08/10/2014 Overview (07/14/2024): Following with [facility] Pul - Dr. Floyd Continues with Advair 500-50 BID, Ellipta daily, proair PRN. Reports breathing well controlled on current regimen. May use supplemental oxygen: 2L/min if doing physical activity or exerting herself (orders through [facility]) (6 min walk test Apr 2024) Assessment & Plan (04/11/2024 4:55 PM EDT): Cont current therapy Resolved Problems Problem Noted Date Diagnosed Date Resolved Date Salmonella food poisoning 03/07/2024 Assessment & Plan (03/07/2024 11:54 AM EDT): - Hospitalized Feb 2024 for Salmonella food poisoning - Reports back to baseline today Primary adenocarcinoma of left lung 04/02/2023 05/13/2023 Overview (04/02/2023): 03/31/23: [place] Thoracic surgery follow up. Respiratory therapy performed [...] Encounters Date Type Department Care Team Description 09/08/2024 Orders Only [facility] [address] [place] [address] ProviderSanto MD 09/02/2024 Refill [facility] [address] [place] [address] Anabelle Obrien FNP Hyperlipidemia, unspecified hyperlipidemia type 08/28/2024 Refill [facility] [address] [place], [place] [phone] Anabelle Obrien FNP Routine health maintenance 08/24/2024 Refill [facility] [address] [place], [place] [phone] Anabelle Obrien FNP Chronic obstructive pulmonary disease, unspecified COPD type (CMS/HCC) 08/23/2024 Telephone [facility] [address] [place], [place] [phone] Anabelle Obrien FNP TC: Switch for Insurance Formulary 08/05/2024 Telephone [facility] [address] [place] [address] Lea Saavedra PharmD 07/28/2024 Orders Only GENERIC EXTERNAL DATA DEPARTMENT Provider, Generic External Data 07/11/2024 1:45 PM EST Office Visit [facility] [address] [place] [address] Anabelle Obrien FNP Type 2 diabetes mellitus with hyperglycemia, without long-term current use of insulin (CMS/HCC) (Primary Dx); Essential hypertension; Chronic obstructive pulmonary disease, unspecified COPD type (CMS/HCC); Paroxysmal atrial fibrillation (CMS/HCC); Hypomagnesemia; Healthcare maintenance; Cerebral cavernoma; Gastroesophageal reflux disease, unspecified whether esophagitis present 07/11/2024 Travel 07/07/2024 Telephone [facility] [address] [place] [address] Danna Garcia MA Chart Prep 06/29/2024 Refill [facility] [address] [place] [address] Anabelle Obrien FNP Anxiety from Last 3 Months Immunizations Name Administration [...] Comments CT CHEST WO CONTRAST Routine 09/05/2024 2:35 PM EST GROSS AND MICROSCOPIC LEVEL 3 Routine 07/28/2024 [...] HM COLONOSCOPY Routine 06/13/2024 4:01 PM EST BI MAMMOGRAM SCREENING TOMOSYNTHESIS BILATERAL Routine [...] Recently Relevant to Health Maintenance Results * CT CHEST WO CONTRAST (09/05/2024 2:35 PM EST) Anatomical Region Laterality Modality Computed Tomogra phy us Historical Provider MD LINN CT PROCEDURES Final R esult * Gross and Microscopic Level 3 (07/28/2024 2:49 PM EST) 07/28/2024 2:49 PM EST 07/28/2024 3:05 PM EST Narrative [facility] - 08/04/2024 12:05 PM EST ----- ------- Name: Tete Ayon ?Age/Sex: 69/F ? : 1955 Unit#: [id number] ?? Attend Dr: Kd Witt MD ?Re07/28/24 ?[place] [facility] ? Location: HO.SSS ?Disch: ? ----- ------- SPEC : [id number] ?RECD: 07/28/24 ? STATUS: ??SOUT ? REQ NUM: [id number] ? SHANT: 07/28/24 ? SUBM DR: Kd Witt MD ? ENTERED: ??07/28/24 ?SP TYPE: Surgical ? OTHR DR: Anabelle Obrien BATCHMAKER ? ORDERED: ??Gross Micro L3 ? Diagnosis ?? Skin, posterior neck mass, excision: ?? 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 ?? -Dermal scar. ? 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 The previous ?? biopsy ([id number]) was reviewed and is consistent with folliculosebaceous [...] identified other than the adjacent fat necrosis. Grounds Maintenance Supervisor sections are submitted in cassettes [id number]. CEDS This case was reviewed intradepartmentally, dermatopathology. ? CONTINUED ON NEXT PAGE ----- ------- Name: Tete Ayon ?Age/Sex: 69/F ? : 1955 Unit#: [id number] ?? Attend Dr: Kd Witt MD ?Re07/28/24 ?Status: [facility] ? Location: HO.SSS ?Disch: ? ----- ------- SPEC : [id number] ?RECD: 07/28/24 ? STATUS: ??SOUT ? REQ NUM: [id number] ? SHANT: 07/28/24-2971 ? SUBM DR: Kd Witt MD ? ENTERED: ??07/28/24 ?SP TYPE: Surgical ? OTHR DR: Anabelle Obrien BATCHMAKER ? ORDERED: ??Gross Micro L3 ? Copies To: ?? Anabelle Obrien BATCHMAKER ?? [address] [facility] ?? [place] [address] ?? [phone] ?? Kd Witt MD ?? [facility] Surgeons ?? [address] ?? [place] [address] ?? [phone] ?? [email or web address] ----- ------- Signed (signature on file) Cherie Nevarez 08/04/24 1986 ? ----- ------- ? END OF REPORT ? Generic External Data Provider LAB CYTOLOGY ORDE RABLES Final Result Performing Organization Address [facility] Co de Phone Number [facility] [address] [place] [phone] * (ABNORMAL) Glucose, Whole Blood (07/28/2024 1:30 PM EST) Glucose, Whole Blood 186(H) 60 - 115 mg/dL [facility] Comment:METER #: [id number] 07/28/2024 1:30 PM EST 07/28/2024 1:35 PM EST Generic External Data Provider LAB BLOOD ORDERAB LES Final Result Performing Organization Address [facility] Co de Phone Number [facility] [address] [place] [phone] * (ABNORMAL) POCT Urinalysis (07/11/2024 2:27 [...] Expiration Date Urine 07/11/2024 2:27 PM EST Anabelletash Obrien BATCHMAKER POINT OF CARE TEST ENTER/EDIT ORDERABLES Final Result * (ABNORMAL) POCT HGB A1C (07/11/2024 2:26 PM EST) Hemoglobin A1C 10.2(A) 4.0 - 6.0 % QC Media Lot # [id number] Lot# Expiration Date 812,026 Blood 07/11/2024 2:26 PM EST Anabelle Phalindra BATCHMAKER POINT OF CARE TEST ENTER/EDIT ORDERABLES Final Result * (ABNORMAL) POCT Glucose (07/11/2024 2:25 PM EST) Glucose Blood, POC 324(A) 60 - 200 mg/dL Comment:Random QC Media Lot # [id number] Lot# Expiration Date 482,[id number] Blood Capillary blood specimen / Unknown 07/11/2024 2:25 PM EST Anabelle Phalindra BATCHMAKER POINT OF CARE TEST ENTER/EDIT ORDERABLES Final Result * Hm Colonoscopy (06/13/2024 4:01 PM EST) Historical Provider MD HEALTH MAINTENANCE Final Result * BI Mammogram Screening Tomosynthesis Bilateral (01/13/2024 12:48 PM EDT) Anatomical Region Laterality Modality Breast Bilateral Mammography 01/13/2024 12:4 8 PM EDT Narrative 02/08/2024 10:38 PM EDT ? [facility] ? [address] ?[place] [address] ? Mammography Report ? Signed ? Patient: Mauras Holder,Tete ?MR#: ?? [id number] ? : 1955 ?Acct:[id number] ? Age/Sex: 68 / F ?ADM Date: 07/10/24 ? Loc: HO.MAMMO ? Attending Dr: Anabelle Obrien BATCHMAKER ? Ordering Physician: Anabelle Obrien ?Results: 1Negat ?? pranay ? Date of Service: 01/13/24 ?Follow Up: 1 Year From Orig ?? inal Mammogram ? Procedure(s): MM tomosynthesis screening BI ?? Accession Number(s): [id number] ? cc: Anabelle Obrien BATCHMAKER ? EXAMINATION: ?? MM SCREENING DIGITAL BREAST [...] 02/08/242233 ? DD/ 1248 ? TD/TT: ? Shaving Machine Operator: ? Procedure Note Donotuseinterpreter, Image - 02/08/2024 [facility] [address] [place] [address] Mammography Report Signed Patient: Johnny Ayon#: [id number] : 1955cct:[id number] Age/Sex: 68 / FADM Date: 01/13/24 Loc: HOJoseMAMMO Attending Dr: Anabelle Obrien BATCHMAKER Ordering Physician: Anabelle ObrienPResults: 1Negat pranay Date of Service: 01/13/24Follow Up: 1 Year From Orig inal Mammogram Procedure(s): MM tomosynthesis screening BI Accession Number(s): [id number] cc: Anabelle Obrien BATCHMAKER EXAMINATION: MM SCREENING DIGITAL BREAST TOMOSYNTHESIS, BILATERAL [...] signed by Carey Dao MD in OV> 02/08/24 2234 DD/ 1248 TD/TT: Shaving Machine Operator: Anabelle SURESH IMG BI PROCEDURES Final Result * Hepatitis C Viral RNA, Quantitative, Real-Time PCR (04/23/2023 9:05 AM EDT) Hepatitis C Viral Load <15 NOT DETECTED NOT DETECTED IU/mL [facility] HCV Log PCR <1.18 NOT DETECTED NOT DETECTED Log IU/mL [facility] Comment:This test was perfor med using Real-Time Polymerase ChainReaction.Reportable Range: 15 IU/mL to 100,000,000 IU/mL(1.18 Log IU/mL to 8.00 Log IU/mL).The analytical performance characteristics of thisassay have been determined by [facility].The modifications have not been cleared or approved bythe FDA. This assay has been validated pursuant to theCLIA regulations and is used for clinical purposes.For more information on this test, go to:http://education.PuzzleSocial/faq/UMG02r5(This link is being provided for informational/educational purposes only.)THIS TEST WAS PERFORMED AT:[facility] [place] [phone] COLLAZO MD Blood 04/23/2023 9:05 AM EDT 04/23/2023 11:11 AM EDT Anabelle SURESH LAB BLOOD ORDERABLES Final Res ult [facility] [address] [place] [phone] * (ABNORMAL) Albumin, Random Urine W/Creatinine (04/23/2023 9:05 AM EDT) Creatinine, Urine 100.38 mg/dL [facility] Microalbumin Urine 32.0 mg/L [facility] Microalbum Creatinine Ratio Ur 31.8(H) <30 ug/mg cr [facility] Comment:Albumin/Creatinine R atio Reference Ranges: Normal: < 30 ug/mg creatinine Microalbuminuria: 30 - 300 ug/mg creatinineClinical Albuminuria: > 300 ug/mg creatinine Urine 04/23/2023 9:05 AM EDT 04/23/2023 10:57 AM EDT us Anabelle Obrien BATCHMAKER LAB URINE ORDERABLES Final Res ult Performing Organization Address [facility]/ZIP Co de Phone Number [facility] [address] [place] [phone] * Lipid Panel, Standard (04/23/2023 9:05 AM EDT) Triglycerides 94 <150 mg/dL [facility] Comment:Desirable Triglyceri de: less than 150 mg/dLBorderline High Triglyceride 150-199 mg/dLHigh Triglyceride: 200-499 mg/dLVery High Triglyceride: greater than or equal to 5OO mg/dL Cholesterol 146 <200 mg/dL [facility] Comment:Desirable Cholestero l: less than 200 mg/dLBorderline High Cholesterol: 200-239 mg/dLHigh Cholesterol: greater than 239 mg/dL LDL Cholesterol Calculated 79 <100 mg/dL [facility] Comment:Desirable LDL: less than 100 mg/dLNear Optimal/Above Optimal LDL: 110- 129 mg/dLBorderline High LDL: 130-159 mg/dLHigh LDL: 160-189 mg/dLVery High LDL: greater than or equal to 190 mg/dL HDL Cholesterol 49 >40 mg/dL [facility] Comment:Desirable HDL: great er than 40 mg/dL Note: This HDL assay may give artificially low results in patients with liver disease. Blood Venous blood specimen / Unknown 04/23/2023 9:05 AM EDT 04/23/2023 11:11 AM EDT us Anabelle Obrien BATCHMAKER LAB BLOOD ORDERABLES Final Res ult Performing Organization Address [facility]/ZIP Co de Phone Number [facility] [address] [place] [phone] from Last 3 Months or Most Recently Relevant to Health Maintenance Insurance [facility] Care Teams Serology Technician Relationship Specialty Start Date End Date Anabelle Obrien FNP [address] [place] [address] PCP - General Family Medicine 06/02/22 Orlando Perkins MD [address] [place] [phone] Cardiology 07/14/24 Pardeep Floyd [address] [place] [phone] Pulmonary Disease 07/14/24 Beau Sterling MD [address] [place] [address] Nephrology 07/14/24 Nora Valdez [address]rd [place] [address] Gastroenterology 07/14/24
--- OUTSIDE RECORDS SUMMARY | 2024-09-13 16:04 | XMS_ITS | Encounter Summary ---
Author Organization [employer] Address [address] [facility] [address] [place] [address] Care Team Providers Care Sound Equipment Mechanic Name Role Phone Anabelle Obrien Primary Care Provider [phone] Orlando Perkins MD Unavailable [phone] Pardeep Floyd Unavailable Beau Sterling MD Unavailable Nora Valdez Unavailable Reason for Visit * Reason Comments Med Refill Encounter Details Date Type Department Care Team (Late st Contact Info) Description 01/18/2024 Refill [facility] [address] [place], [place] [phone] Anabelle Obrien FNP [address] [place], [place] [phone] Type 2 diabetes mellitus with hyperglycemia, without long-term current use of insulin ([facility]) (Primary Dx) Social History Tobacco Use Types [...] hyperglycemia, without long-term current use of insulin ([facility])- Primary documented in this encounter Additional Health Concerns Assessment Noted Time PHQ-9 Depression Total Score: 0 04/02/20 23 10:05 AM EDT documented as of this encounter Care Teams Sound Equipment Mechanic Relationship Specialty Start Date End Date Anabelle Obrien FNP [address] [place] [address] PCP - General Family Medicine 06/02/22 Orlando Perkins MD [address] [place] [address] Cardiology 07/14/24 Pardeep Floyd [address] [place] [address] Pulmonary Disease 07/14/24 Beau Sterling MD [address] [address] Nephrology 07/14/24 Nora Valdez [address] [place] [address] Gastroenterology 07/14/24 documented as of this encounter
--- OUTSIDE RECORDS SUMMARY | 2024-09-13 16:04 | XMS_ITS | Encounter Summary ---
Author Organization [employer] Address [address] [facility] [address] [place] [address] Care Team Providers Care Dressing Machine Operator Name Role Phone Anabelle Obrien Primary Care Provider [phone] Orlando Perkins MD Unavailable [phone] Pardeep Floyd Unavailable Beau Sterling MD Unavailable Nora Valdez Unavailable Reason for Visit * Reason Comments Med Refill Encounter Details Date Type Department Care Team (Late st Contact Info) Description 09/02/2024 Refill [facility] [address] [place], [place] [phone] Anabelle Obrien FNP [address] [place], [place] [phone] Hyperlipidemia, unspecified hyperlipidemia type Social History Tobacco Use Types Packs/Day Years [...] the past 12 months, has t he [employer], gas, oil or water company threatened to [...] as of this encounter Visit Diagnoses Diagnosis Hyperlipidemia, unspecified hyperlipidemia type documented in this encounter Additional Health Concerns Assessment Noted Time PHQ-9 Depression Total Score: 4 07/14/19 25 4:51 PM EST documented as of this encounter Care Teams Dressing Machine Operator Relationship Specialty Start Date End Date Anabelle Obrien FNP [address] [place] [address] PCP - General Family Medicine 06/02/22 Orlando Perkins MD [address] [place] [address] Cardiology 07/14/24 Pardeep Floyd [address] [place] [address] Pulmonary Disease 07/14/24 Beau Sterling MD [address] [address] Nephrology 07/14/24 Nora Valdez [address] [place] [address] Gastroenterology 07/14/24 documented as of this encounter
--- OUTSIDE RECORDS SUMMARY | 2024-09-13 16:04 | XMS_ITS | Encounter Summary ---
Author Organization [employer] Address [address] [place] [address] Care Team Providers Care Business Writer Name Role Phone Anabelle Obrien Primary Care Provider [phone] Orlando Perkins MD Unavailable [phone] Pardeep Floyd Unavailable Beau Sterling MD Unavailable Nora Valdez Unavailable Encounter Details Date Type Department Care Team (Late st Contact Info) Description 09/08/2024 Orders Only [facility] [address] [place], [place] [id number] Provider, MD Santo Social History Tobacco Use Types Packs/Day Years [...] WO CONTRAST Routine 09/05/2024 2:35 PM EST documented in this encounter Results * CT CHEST WO CONTRAST (09/05/2024 2:35 PM EST) Anatomical Region Laterality Modality Computed Tomogra phy us Historical Provider MD LINN CT PROCEDURES Final R esult documented in this encounter Visit Diagnoses Not on filedocumented in this encounter Additional Health Concerns Assessment Noted Time PHQ-9 Depression Total Score: 4 07/14/19 25 4:51 PM EST documented as of this encounter Care Teams Business Writer Relationship Specialty Start Date End Date Anabelle Obrien FNP [address] [place] [address] PCP - General Family Medicine 06/02/22 Orlando Perkins MD [address] [place] [address] Cardiology 07/14/24 Pardeep Floyd [address] [place] [address] Pulmonary Disease 07/14/24 Beau Sterling MD [address] [place] [address] Nephrology 07/14/24 Nora Valdez [address] 3rd [place] [address] Gastroenterology 07/14/24 documented as of this encounter
--- OUTSIDE RECORDS SUMMARY | 2024-09-13 16:04 | XMS_ITS | Clinical Summary ---
Author Organization [facility] Address [address] [place] [address] Phone Care Team Providers Care Fire Hydrant Operator Name Role Phone Anabelle Obrien RN Primary Care Provider Allergies Active Allergy Reactions Criticality Noted Date Comments Ciprofloxacin Anaphylaxis High 02/11/2023 Medications apixaban (ELIQUIS) 5 mg tablet Take 5 [...] 1 (one) time each day. Active calcium carbonate/vitam in D3 (CALCIUM CARBONATE-VITAM IN D PO) Take 1 Tablet by mouth [...] 2 (two) times a day. Active fluticasone propion-salmete roL (ADVAIR DISKUS) 500-50 mcg/dose diskus inhaler Inhale 1 Inhaler into the lungs 2 times daily. Active insulin glargine (LANTUS) 100 unit/mL injection Inject 10 Units into the skin at bedtime. Active lisinopril (PRINIVIL,ZESTR IL) 40 mg tablet Take 1 tablet (40 [...] 1 (one) time each day. Active nitrofurantoin, macrocrystal-mo nohydrate, (MACROBID) 100 mg capsule Take 1 capsule (100 mg total) by mouth 2 (two) times a day. Active methylcellulose , laxative, 500 mg tablet Take 1 tablet [...] incontinence 10/06/2023 Pleural effusion on left 05/12/2023 Encounters Date Type Department Care Team Description 09/05/2024 3:19 PM EST - 09/05/2024 11:59 PM EST Hospital Encounter [facility] CT Scan [address] [place] [address] History of lung cancer Discharge Disposition: Home or Self Care from Last 3 Months Surgical History Surgery Date Site/Laterality Comments HYSTERECTOMY N/A PROCEDURE: HISTORICAL HYSTERECTOMY COLONOSCOPY N/A PROCEDURE: HISTORICAL COLONOSCOPY OTHER SURGICAL HISTORY N/A PROCEDURE: VT SLING OPERATION STRESS INCONTINENCE OTHER SURGICAL HISTORY N/A PROCEDURE: VT OSTECTOMY COMPLETE OTHER METATARSAL HEAD OTHER SURGICAL HISTORY 03/18/2023 PROCEDURE: VT THORACOSCOPY W/LOBECTOMY SINGLE LOBE Medical History Medical History Date Comments Anxiety disorder DX:Anxiety diso rder COPD (chronic obstructive pu lmonary disease) (CMS/HCC) DX:COPD (chronic obstructive pulmonary disease) (HCC) Dyslipidemia DX:Dyslipidemia HTN (hypertension) DX:HTN (hyper tension) PVD (peripheral vascular dis ease) (CMS/HCC) DX:PVD (peripheral vascular disease) ([facility]) Tobacco abuse DX:Tobacco abuse History of uterine [...] Orientation Straight 09/05/2024 3: 18 PM EST Obstetrics History Last Filed Vital Signs Vital [...] Upcoming Encounters Date Type Department Care Team ([facility] st Contact Info) Description 09/15/2024 3:15 PM EDT Office Visit Thoracic Surgery - [place] [address] [facility] [address] [facility] [address] [address] [place] [id number] Meche Boogie PA [address], [address] [place] [address] Health Maintenance Due Date Last Done Comments Breast Cancer Screening 1955 Diabetes: Annual GFR (Glomerular Filtration Rate) 1954 Diabetes: Annual Foot Exam 1964 Diabetes: Annual Retina Eye Exam 1964 RSV Immunization Patients 60 + Years Old (1 - Risk 60-74 years 1-dose series) 2014 Zoster Vaccines (1 of 2) 04/25/2015 02/28/2015 Pneumococcal Vaccine: 50+ Years (3 of 3 - PPSV23, PCV20 or PCV21) 09/28/2019 08/03/2019, 08/10/2014 Colorectal Cancer Screening: Colonoscopy 07/31/2023 Falls Risk Assessment 07/31/2023 Hepatitis C Screening 07/31/2023 Medicare Annual Wellness Visit 07/31/2023 Osteoporosis Screening (Bone Density Screening) 07/31/2023 Social Influencers of Health Screening 07/31/2023 Hypertension/CHF/CAD Annual BMP Blood Test 01/29/2024 COVID-19 Vaccine (4 - 2023-2 5 season) 2024 09/09/2021, 11/28/2020, 10/31/2020 Influenza Vaccine (#1) 2024 08/10/2014 DTaP,Tdap,and Td Vaccines (2 - Td or Tdap) 08/10/2024 08/10/2014 Diabetes: Annual Urine Albumin-Creatinine Ratio (uACR) 09/06/2024 Diabetes: Blood Sugar Contro l Test (HGBA1C) 01/08/2025 07/11/2024 Depression Screening 07/14/2025 07/14/2024 Cholesterol Screening (Lipid Panel) 04/23/2028 04/23/2023 MMR Vaccines Aged Out 08/24/2014 No longer eligi ble based on patient's age to complete this topic Hepatitis B Vaccines Completed 02/28/2015, 09/28/2014, 08/24/2014 HIB Vaccines Aged Out No longer eligi [...] patient's age to complete this topic Meningococcal B Vacine Aged Out No lo nger eligible based on patient's age to complete this topic RSV Immunization Patients Under 20 months Aged Out No longer eligible b ased on patient's age to complete this topic Varicella Vaccines Aged Out No longer eligible based on patient's age to complete this topic Procedures Procedure Name Priority Date/Time Associated Diagnosis Comments CT CHEST WO CONTRAST Routine 09/05/2024 3:25 PM EST History of lung cancer from Last 3 Months Results * CT Chest wo Contrast (09/05/2024 3:25 PM EST) Anatomical Region Laterality Modality Body Computed Tomogra phy 09/07/2024 1:02 PM EST Impressions 09/07/2024 1:14 PM EST Impression: 1. Left lower lobectomy sequelae. 2. No suspicious developing pulmonary nodule or thoracic lymphadenopathy. 3. Trace residual left pleural effusion, improved. Telerad GERALDINE ([id number]) -------- FINAL REPORT -------- Dictated By: Christy Rodriguez Dictated Date: 09/07/2024 13:02 ET Assigned Physician: Christy Rodriguez Reviewed and Electronically Signed By: Christy Rodriguez Signed Date: 09/07/2024 13:14 ET Workstation ID: [id number] Transcribed By: Self Edit Transcribed Date: 09/07/2024 13:02 ET Narrative 09/07/2024 1:14 PM EST History: Lung carcinoma. Status post left lower lobectomy in 2022. Surveillance imaging. Comparison: 03/21/24 Technique: Helical volumetric imaging of the thorax was performed without IV contrast. DLP: 329.71 mGy/cm GE Clinipace WorldWide Traill Iterative reconstruction technique Findings: Left lower lobectomy [...] was performed withoutIV contrast. DLP: 329.71 mGy/cm Tantaline Traill Iterative reconstruction technique Findings: Left lower lobectomy [...] 3), visible dating back to the initial, 2outside thoracic CT and without significant change. No [...] Trace residual left pleural effusion, improved. Telerad GERALDINE ([id number]) -------- FINAL REPORT -------- Dictated By: Christy Rodriguez Dictated Date: 09/07/2024 13:02 ET Assigned Physician: Christy Rodriguez Reviewed and Electronically Signed By: Christy Rodriguez Signed Date: 09/07/2024 13:14 ET Workstation ID: [id number] Transcribed By: Self Edit Transcribed Date: 09/07/2024 13:02 ET us Clara Carey PHOTO CHECKER IMG CT PROCEDURES Final Res ult from Last 3 Months Insurance [employer] MEDICARE Member Subscriber Plan / Payer (Ef fective 2022-Present) Name:Tete Segovia Relation to Subscriber:Self Name:Tete Segovia Payer ID:[id number] Group ID:[id number] Type:Not on file Address: [place] [address] [place] [address] Care Teams Fire Hydrant Operator Relationship Specialty Start Date End Date Anabelle Obrien RN [address] [facility] [address] [place] [address] PCP - General 11/07/22
== END 2024-09-13 13:37 | disposition home or self-care (01) ==
LOC: HO.HPS 13:16
PROVIDERS: PCP Registered Nurse; Visit Provider Internal Medicine
DX: F17.200 Nicotine dependence, unspecified, uncomplicated (principal); J44.9 Chronic obstructive pulmonary disease, unspecified; R91.1 Solitary pulmonary nodule; R09.02 Hypoxemia
CPT/HCPCS: 99213

== ENCOUNTER → 2024-09-13 13:15 | Outpatient (BNVA) | payer OTHER, SELFPAY | PROVIDERS: PCP Registered Nurse; Visit Provider Internal Medicine | DX: J44.9 Chronic obstructive pulmonary disease, unspecified (principal); R91.1 Solitary pulmonary nodule; R09.02 Hypoxemia; F17.210 Nicotine dependence, cigarettes, uncomplicated | CPT/HCPCS: 99212 ==

== ENCOUNTER 2025-01-13 13:14 | Outpatient (REF) | payer OTHER, SELFPAY ==
--- OUTSIDE RECORDS SUMMARY | 2025-01-13 13:16 | XMS_ITS | Encounter Summary ---
Author Organization [employer] Address [address] [place] [address] Care Team Providers Care Architectural Draftsperson Name Role Phone Anabelle Obrien Primary Care Provider [phone] Orlando Perkins MD Unavailable [phone] Pardeep Floyd Unavailable Beau Sterling MD Unavailable Nora Valdez Unavailable Encounter Details Date Type Department Care Team (Late st Contact Info) Description 05/21/2023 Abstract [facility] MEDICINE [address] [place], [place] [phone] Syl Robert Social History Tobacco Use Types [...] as of this encounter Plan of Treatment Upcoming Encounters Date Type Department Care Team (Late st Contact Info) Description 03/13/2025 10:00 AM EDT Office Visit [facility] CHC MED & PEDS [address] [place], [place] [phone] Anabelle Obrien FNP [address] [place], [place] [phone] documented as of this encounter Procedures Procedure [...] documented as of this encounter Care Teams Architectural Draftsperson Relationship Specialty Start Date End Date Anabelle Obrien FNP [address] [place], [place] [phone] PCP - General Family Medicine 06/02/22 Orlando Perkins MD [address] [place] [address] Cardiology 07/14/24 Pardeep Floyd [address] [place] [address] Pulmonary Disease 07/14/24 Baeu Sterling MD [address] [place] [address] Nephrology 07/14/24 Nora Valdez [address] 3rd [place] [address] Gastroenterology 07/14/24 documented as of this encounter
--- OUTSIDE RECORDS SUMMARY | 2025-01-13 13:17 | XMS_ITS | Data Portability ---
Author Organization [email or web address] [facility], [facility] Address [address] [place] [phone] Care Team Providers Care Die Try Out Worker Name Role Phone HIM CCA OTHER Assessment Encounter Date Assessment Date Assessment LastModified by Organization Details LastModified Time 12/21/2023 12/21/2023 I provided real -time medical direction via phone for this encounter, and was available for additional phone based assistance as needed. I have reviewed and agree with the Assessment and Plan as documented by the Office Mail Clerk. We discussed the diagnostic uncertainty of home visits and the risk associated with this. Diabetics can have silent ischemia, we have no old records nor does patient have access to old EKG so her EKG is considered ischemic until proven otherwise. Advised need for evaluation for cardiac/STEAM TABLE ASSOCIATE event in the ER emergently the patient/family given the opportunity to ask questions. Patient understood rationale for going to the ER via EMS/report called to [facility] spoke to ED physician aaron Not available 12/21/2023 15:04:08 Plan of Treatment Reminders Order Date Submit Date Provider Last Modified By Organization Details Last Modified Time Details Appointments None recorded. Lab rapid SARS CoV 2 Ag, QL IA, respiratory specimen 2023 024 [email or web address] 0 [facility], [address] [place] [address], [phone] 4 15:07:34 rapid flu (A+B) 2023 024 [email or web address], [address] 4 15:07:32 BMP, serum or plasma 2023 024 [email or web address] [address], [address] 4 15:07:07 Referral None recorded. Procedures None recorded. Surgeries None recorded. Imaging electrocard iogram 2023 024 [email or web address] [address], [address] [place] [address] 4 15:07:05 Medication Orders sodium chloride 0.9 % intravenous solution 2023 024 [email or web address] 0 Not available 15:07:06 Patient TargetsNo targets recorded. Patient InstructionsNo instructions recorded. Reason for Referral None Reported. Results Created Date Observation Date Name Description Value Unit Range Abnormal Flag Note LastModifiedBy Organization Detail LastModifiedTime 12/21/19 24 12/21/2023 rapid flu (A+B) Flu negati ve Not Available [facility] ed [address] [place] [address], [address] [place] [address] 12/21/2023 15:07:14 12/21/19 24 12/21/2023 rapid SARS CoV 2 Ag, QL IA, respi rator y speci men rapid SARS CoV 2 Ag, QL IA, respiratory specimen negati ve Not Available [facility] ed [address] [place] [address], [address] [place] [address] 12/21/2023 15:07:12 12/21/19 24 12/21/2023 BMP, serum or plasm a GLU 363 Not Available [address], [address] [place] [address] 12/21/2023 14:57:23 12/21/19 24 12/21/2023 elect rocar diogr am No observ ation record ed. [address], [address] [place] [address] 12/21/2023 15:07:00 Result Notes None recorded. Medical Equipment None Reported. [...] active Not Available Not Available Not Avai labtash polyethylene glycol 3350 17 gram/dose oral powder [...] Available Pentips Pen Needle 32 gauge x 532 USE DIRECTED TO INJECT INSULIN active Not Available Not Available No t Available BD Veo Insulin Syringe Ultra-Fine 1/2 mL 31 gauge x 15/64 USE DIRECTED ONCE DAILY WITH LANTUS active [...] Available No t Available FreeStyle Reena 2 Agenda USE DIRECTED TO TEST BLOOD SUGAR EVERY 8 HOURS active Not Available Not Available No t Available Vitals Date Recorded Body temperature Heart rate Body weight Oxygen saturation Oxygen saturation in Arterial blood by Pulse oximetry Respiratory rate Body height Systolic And Diastolic Systolic And Diastolic Provider Name and Address Organization Details Last Updated DateTime 4 98.9 [degF] 78 /min 70124.3 36 g 95 % 95 % 14 /min 165.1 cm 115/65 mm[Hg] 95/61 mm[Hg] Not Available [employer] - production 4 14:44:43 Social History None recorded. Functional Status None recorded. Mental Status None recorded. Family History Nothing Reported. Medical History No medical history recorded. Gynecological HistoryNo gynecological history recorded. Obstetrics History GPAL:G 0 P 0 0 0 0 Past Encounters Encounter ID Performer Location Encounter Start Date Encounter Closed Date Diagnosis/Indication Diagnosis SNOMED-CT Code Diagnosis ICD10 Code Diagnosis Note [id number] Rafaela Ponce MD Main - [facility] [address] [place] [phone] 12/21/2023 14:44:16 12/21/2023 23:20:59 Dizziness [id number] R42 pat has recently been seen by cardiology and had an echo, the daughter is reporting what sounds like a low EF. BMP primarily concerning for hypoglycem ia ordered 500 cc of normal saline since EF unknownWit h the dizziness although neuro exam was non-focal she could still be having a posterior circulatio n CVA which we cannot workup at home Cough 17738215 R05.9 Health Concerns Section Related Observation LastModified by Organization Detai ls LastModified Time None Recorded Concern Status LastModified by Organization Details LastModified Time None Recorded Advance Directives Directive None Recorded Payers Insurance Date Sequence Insurance Name Policy Number Policy Palacios Covered Member ID Palacios Member ID Guarantor Name 12/21/2023 1 [facility] - DOS ON OR AFTER 2022 - DUAL ELIGIBLE - ASSISTED OPTIONS AND ONE CARE (MEDICARE REPLACEMENT/ADV ANTAGE - HMO) Dyan aparicio [id number] Dyan cheek Notes Date Note Type Note [...] without difficulty. Daughter would like member evaluated. Office Mail Clerk POC Test Results from Eldon Mercado [facility] (:50:20) pH: 7.42 pH units pCO2: 41.1 mmHg pO2: 45.5 mmHg Na: 137 mmol/L K: 4.3 mmol/L iCa: 1.10 mmol/L Cl: 97 mmol/L TCO2: 26.5 mEq/L Hct: 33 % Hb: 11.2 g/dL Glu: 363 mg/dL Lac: 2.5 mmol/L Cr: 0.9 mg/dL BUN: 20 mg/dL A Office Mail Clerk POC Test Results from Eldon Mercado [facility] Rapid COVID antigen (::19) COVID: - Rapid influenza antigen (:) Flu: - ................... ................... ................... ................... ................... ................... ................... ........ Office Mail Clerk Note From Eldon Mercado: Pt reports dizziness with standing/movement since Thursday. Pt sts she has had a dry cough since Thursday. Pt denies CP, SOB, MARIE, MATHIS, blurred vision, f/n/v/d. Pt is alert, NAD. Orthostatic BP, VS otherwise stable. Afebrile. Non focal neuro exam. Lungs CTA. Benign ABD exam. No LE edema. Rapid covid and flu negative. EKG and labs uploaded. [facility] recommends pt be transported to the ED. 911 initiated for transport to [place] ED. 500 cc of normal saline administered prior to transport. SBAR to Sagar DURAND. ................... ................... ................... ................... ................... ................... ................... ........ Disposition: Fulfilled Rafaela Ponce MD [address] [facility],[address], [place], [address], [employer] 12/21/2023 16:55:43 OBGyn Episode No OBEpisode recorded.
--- OUTSIDE RECORDS SUMMARY | 2025-01-13 13:17 | XMS_ITS | Clinical Summary ---
Author Organization [facility] Address [address] [place] [address] Phone Care Team Providers Care Supervisor Print Line Name Role Phone Anabelle Obrien RN Primary [...] Active Problems Problem Noted Date Diagnosed Date History of lung cancer 09/15/2024 Assessment & Plan (09/15/2024 3:26 PM EDT): Ms. Segovia is a 69 year old female who had a robotic left lower lobectomy in March 2023 for a stage 1 adenocarcinoma. The patient's most recent surveillance chest CT scan done in September 2024 shows no new or worsening pulmonary nodule or thoracic adenopathy to suggest recurrence or new disease. She does have multiple subcentimeter pulmonary nodules many of which are tiny and calcified consistent with old granulomatous disease. She has a 4 mm solid noncalcified juxtapleural nodule in the right lower lobe which is stable and a trace residual pleural effusion at the base of the left chest which has improved. There also is a borderline level 5 lymph node which measures 1 cm on her most recent scan, but appears relatively stable when compared to CT done in September 2023. We will continue with routine chest CT surveillance the next of which will be in 6 months, March 2025. The patient have a visit afterwards as part of her routine surveillance protocol. Chronic pain 10/06/2023 COPD (chronic obstructive pu lmonary disease) ([facility] V24, [facility] V28) 10/06/2023 Disorder of intervertebral disc of lumbar spine 10/06/2023 Hyperlipidemia 10/06/2023 Hypertension 10/06/2023 Lumbar radiculopathy 10/06/2023 Mild anxiety 10/06/2023 Osteoporosis 10/06/2023 Paroxysmal atrial fibrillation ([facility] V24, [facility] V28) 10/06/2023 Hypomagnesemia 10/06/2023 Peripheral vascular disorder ([facility] V24) 10/05 Urinary incontinence 10/06/2023 Pleural effusion on left 05/12/2023 Resolved Problems Problem Noted Date Diagnosed Date Resolved Date Adenocarcinoma of left lung ([facility] V24, [facility] V28) 10/06/2023 09/15/2024 Nicotine dependence 10/06/2023 09/16/19 25 Surgical History Surgery Date Site/Laterality Comments HYSTERECTOMY N/A PROCEDURE: HISTORICAL HYSTERECTOMY COLONOSCOPY N/A PROCEDURE: HISTORICAL COLONOSCOPY OTHER SURGICAL HISTORY N/A PROCEDURE: ID SLING OPERATION STRESS INCONTINENCE OTHER SURGICAL HISTORY N/A PROCEDURE: ID OSTECTOMY COMPLETE OTHER METATARSAL HEAD OTHER SURGICAL HISTORY 03/18/2023 PROCEDURE: ID THORACOSCOPY W/LOBECTOMY SINGLE LOBE Medical History Medical History Date Comments Anxiety disorder DX:Anxiety diso rder COPD (chronic obstructive pu lmonary disease) ([facility] V24, [facility] V28) DX:COPD (chronic o bstructive pulmonary disease) ([facility]) Dyslipidemia DX:Dyslipidemia HTN (hypertension) DX:HTN (hyper tension) PVD (peripheral vascular dis ease) ([facility] V24) DX:PVD (peripheral vascular disease) ([facility]) Tobacco abuse DX:Tobacco abuse History of uterine cancer DX:His tory of uterine cancer Type 2 diabetes mellitus wit hout complications ([facility]24, [facility] V28) DX:Type 2 bainca betes mellitus without complications ([facility]) Urinary incontinence DX:Urinary incontinence Osteoporosis DX:Osteoporosis Nicotine dependence DX:Nicotine dependence Lumbar radiculopathy DX:Lumbar r adiculopathy Mixed hyperlipidemia DX:Mixed hy perlipidemia 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 DX:Disorder of intervertebra l disc of lumbar spine Chronic pain DX:Chronic pain Adenocarcinoma of left lung (CMS/HCC V24, CMS/HCC V28) DX:Adenocarcinoma of left km ng (HCC) Paroxysmal atrial fibrillati on (CMS/HCC V24, CMS/HCC V28) DX:Paroxysmal atrial fibrill ation (HCC) Hypomagnesemia DX:Hypomagnesemi a Family History Medical [...] Sign Reading Time Taken Comments Blood Pressure 165/84 09/15/2024 2:51 PM EDT Pulse 71 09/15/2024 2:51 PM EDT Temperature 36.6 C (97.9 F) 09/15/2024 2:51 PM EDT Respiratory Rate 14 09/15/2024 2:51 PM EDT Oxygen Saturation 94% 09/15/2024 2:51 PM EDT Inhaled Oxygen Concentration - - Weight 82 kg (180 lb 12.8 oz) 09/15/2024 2:51 PM EDT Height 167.6 cm (5' 6 ) 09/15/2024 2:51 PM EDT Body Mass Index 29.18 09/15/2024 2:51 PM EDT Plan of Treatment Health Maintenance Due Date Last Done Comments Breast Cancer Screening 1955 Diabetes: Annual GFR (Glomerular Filtration Rate) 1954 Diabetes: Annual Foot Exam 1964 Diabetes: Annual Retina Eye Exam 1964 RSV Immunization Adult Patients (1 - Risk 60-74 years 1-dose series) [...] 2023-2 5 season) 2024 09/09/2021, 11/28/2020, 10/31/2020 DTaP,Tdap,and Td Vaccines (2 - Td or Tdap) 08/10/2024 08/10/2014 Diabetes: Annual Urine Albumin-Creatinine Ratio (uACR) 09/06/2024 Diabetes: Blood Sugar Contro l Test (HGBA1C) 01/08/2025 07/11/2024 Influenza Vaccine (#1) 2025 08/10/2014 Depression Screening 07/14/2025 07/14/2024 Cholesterol Screening (Lipid [...] age to complete this topic Meningococcal B Vaccine Aged Out No l onger eligible based on patient's age to complete this topic RSV Immunization Patients Under 20 months Aged Out No longer eligible b ased on patient's age to complete this topic Varicella Vaccines Aged Out No longer eligible based on patient's age to complete this topic Insurance [facility] MEDICARE Member Subscriber Plan / Payer (Ef fective 2022-Present) Name:Tete Segovia Relation to Subscriber:Self Name:Tete Segovia Payer ID:[id number] Group ID:[id number] Type:Not on file Address: [place] [address] [place] [address] Care Teams Supervisor Print Line Relationship Specialty Start Date End Date Anabelle Obrien RN [address] [place] [address] [place] [address] PCP - General 11/07/22
[2025-01-13 16:02] LABS: MANUAL DIFF FLAG NO
[2025-01-13 16:15] LABS: Hematocrit 34.5 % (37.0-47.0); Hemoglobin 10.9 g/dl (12.0-16.0); Imm Gran Abs Auto 0.05 X10*3/uL (0.00-0.03); Imm Gran Pct Auto 0.6 % (0.0-0.4); Lymphocytes Absolute Auto 2.0 X10*3/uL (1.2-4.9); Mean Corpuscular HGB Conc 31.6 g/dl (31.0-35.0); Mean Corpuscular Hemoglobin 25.3 pg (27.0-33.0); Mean Corpuscular Volume 80.2 fL (80.0-98.0); NRBC Abs Auto 0.000 X10*3/uL (0.0-0.012); NRBC Pct Auto 0.0 /100WBC (0.0-0.2); Platelet Count 279 X10*3/uL (160-400); Red Blood Count 4.30 X10*6/uL (4.20-5.50); White Blood Count 9.0 X10*3/uL (4.8-10.8)
[2025-01-13 17:01] LABS: Ferritin 14 ng/mL (10-250)
[2025-01-13 17:13] LABS: Folate 7.7 ng/mL (> or = 4.0); Vitamin B12 > 2000 pg/mL (200-900)
[2025-01-13 17:22] LABS: Anion Gap 14 (12-20); Blood Urea Nitrogen 25 mg/dL (9-16); Carbon Dioxide 27 mmol/L (22-29); Chloride 102 mmol/L (96-108); Cholesterol 136 mg/dL (<200); Estimated Glomerular Filt Rate 43; HDL Cholesterol 52 mg/dL (>40); Magnesium 1.4 mg/dL (1.6-2.6); Potassium 4.5 mmol/L (3.3-5.1); Sodium 138 mmol/L (135-145); Triglycerides 130 mg/dL (<150)
== END 2025-01-13 13:15 | disposition home or self-care (01) ==
LOC: HO.HHCL 13:14
PROVIDERS: Internal Medicine Nephrology; PCP Registered Nurse; Visit Provider Registered Nurse
DX: Z00.00 Encounter for general adult medical examination without abnormal findings (principal); E83.42 Hypomagnesemia; E11.65 Type 2 diabetes mellitus with hyperglycemia; Z86.2 Personal history of diseases of the blood and blood-forming organs and certain disorders involving the immune mechanism
CPT/HCPCS: 36415; 80051; 80061; 82306; 82565; 82607; 82728; 82746; 83735; 84520; 85025

== ENCOUNTER 2025-01-13 13:49 | Outpatient (REF) | payer OTHER, SELFPAY | END 2025-01-13 13:50 | disposition home or self-care (01) | LOC: HO.HKASLDS 13:49 | PROVIDERS: Visit Provider Registered Nurse | DX: Z13.89 Encounter for screening for other disorder (principal) ==

== ENCOUNTER 2025-01-13 14:00 | Outpatient (REF) | payer OTHER, SELFPAY | END 2025-01-13 14:01 | disposition home or self-care (01) | LOC: HO.HKASLDS 14:00 | PROVIDERS: Visit Provider Registered Nurse | DX: Z13.89 Encounter for screening for other disorder (principal) ==

== ENCOUNTER 2025-01-16 14:11 | Outpatient (REF) | payer OTHER, SELFPAY ==
--- OUTSIDE RECORDS SUMMARY | 2025-01-16 15:35 | XMS_ITS | Encounter Summary ---
Author Organization [employer] Address [address] [place] [address] Care Team Providers Care Information Support Project Manager Name Role Phone Anabelle Obrien Primary Care Provider [phone] Orlando Perkins MD Unavailable [phone] Pardeep Floyd Unavailable Beau Sterling MD Unavailable Nora Valdez Unavailable Encounter Details Date Type Department Care Team (Late st Contact Info) Description 05/21/2023 Abstract [facility] MEDICINE [address] [place], [place] [phone] Syl Robert Social History Tobacco Use Types [...] Description 03/13/2025 10:00 AM EDT Office Visit [facility]S [address] [place], [place] [phone] Anabelle Obrien FNP [address] [place], [place] [phone] documented as of this encounter Procedures Procedure [...] documented as of this encounter Care Teams Information Support Project Manager Relationship Specialty Start Date End Date Anabelle Obrien FNP [address] [place], [place] [phone] PCP - General Family Medicine 06/02/22 Orlando Perkins MD [address] [place] [address] Cardiology 07/14/24 Pardeep Floyd [address] [place] [address] Pulmonary Disease 07/14/24 Beau Sterling MD [address] [place] [address] Nephrology 07/14/24 Nora Valdez [address] [place] [address] Gastroenterology 07/14/24 documented as of this encounter
--- OUTSIDE RECORDS SUMMARY | 2025-01-16 15:36 | XMS_ITS | Data Portability ---
Author Organization [employer] [facility], [facility] Address [address] [place] [id number] Care Team Providers Care Training Engineer Name Role Phone HIM CCA OTHER Assessment Encounter Date Assessment Date Assessment LastModified by Organization Details LastModified Time 12/21/2023 12/21/2023 I provided real -time medical direction via phone for this encounter, and was available for additional phone based assistance as needed. I have reviewed and agree with the Assessment and Plan as documented by the Ice Cream Van Vendor. We discussed the diagnostic uncertainty of home visits and the risk associated with this. Diabetics can have silent ischemia, we have no old records nor does patient have access to old EKG so her EKG is considered ischemic until proven otherwise. Advised need for evaluation for cardiac/MARKETING PROGRAMS SPECIALIST event in the ER emergently the patient/family given the opportunity to ask questions. Patient understood rationale for going to the ER via EMS/report called to [facility] spoke to ED physician aaron Not available 12/21/2023 15:04:08 Plan of Treatment Reminders Order Date Submit Date Provider Last Modified By Organization Details Last Modified Time Details Appointments None recorded. Lab rapid SARS CoV 2 Ag, QL IA, respiratory specimen [email or web address] [facility], [address] [place] [address], [phone] 4 15:07:34 rapid flu (A+B) 2023 024 [email or web address], [phone] 4 15:07:32 BMP, serum or plasma 2023 024 [email or web address] [address], [phone] 4 15:07:07 Referral None recorded. Procedures None recorded. Surgeries None recorded. Imaging electrocard iogram 2023 024 [email or web address], [address] [place] [address] 4 15:07:05 Medication Orders sodium chloride 0.9 % intravenous solution 2023 024 [email or web address] 0 Not available 15:07:06 Patient TargetsNo targets recorded. Patient InstructionsNo instructions recorded. Reason for Referral None Reported. Results Created Date Observation Date Name Description Value Unit Range Abnormal Flag Note LastModifiedBy Organization Detail LastModifiedTime 12/21/19 24 12/21/2023 rapid flu (A+B) Flu negati ve Not Available [facility] ed [address] [place] [address], [address] [place] [address] 12/21/2023 15:07:14 12/21/19 24 12/21/2023 rapid SARS CoV 2 Ag, QL IA, respi rator y speci men rapid SARS CoV 2 Ag, QL IA, respiratory specimen negati ve Not Available [facility] ed [address] [place] [address], [address] [place] [address] 12/21/2023 15:07:12 12/21/19 24 12/21/2023 BMP, serum or plasm a GLU 363 Not Available [address], [address] [place] [address] 12/21/2023 14:57:23 12/21/19 24 12/21/2023 elect rocar diogr am No observ ation record ed. [email or web address] [address], [address] [place] [address] 12/21/2023 15:07:00 Result Notes None recorded. Medical [...] Available No t Available [employer] [facility] [address] [place] USE DIRECTED TO TEST BLOOD SUGAR EVERY 8 HOURS active Not Available Not Available No t Available Vitals Date Recorded Body temperature Heart rate Body weight Oxygen saturation Oxygen saturation in Arterial blood by Pulse oximetry Respiratory rate Body height Systolic And Diastolic Systolic And Diastolic Provider Name and Address Organization Details Last Updated DateTime 4 98.9 [degF] 78 /min 26775.3 36 g 95 % 95 % 14 [...] SNOMED-CT Code Diagnosis ICD10 Code Diagnosis Note [id number] Rafaela Ponce MD Main - [facility] [address] [place] [phone] 12/21/2023 14:44:16 12/21/2023 23:20:59 Dizziness [id number] R42 pat has recently been seen by cardiology and had an echo, the daughter is reporting what sounds like a low EF. BMP primarily concerning for hypoglycem ia ordered 500 cc of normal saline since EF unknownWit h the dizziness although neuro exam was non-focal she could still be having a posterior circulatio n CVA which we cannot workup at home Cough [id number] R05.9 Health Concerns Section Related Observation LastModified by Organization Detai ls LastModified Time None Recorded Concern Status LastModified by Organization Details LastModified Time None Recorded Advance Directives Directive None Recorded Payers Insurance Date Sequence Insurance Name Policy Number Policy Palacios Covered Member ID Palacios Member ID Guarantor Name 12/21/2023 1 [facility] - DOS ON OR AFTER 2022 - DUAL ELIGIBLE - HALF-WAY OPTIONS AND ONE CARE (MEDICARE REPLACEMENT/ADV ANTAGE - HMO) Dyan aparicio [id number] Dyan cheek Notes Date Note Type Note [...] without difficulty. Daughter would like member evaluated. Ice Cream Van Vendor POC Test Results from [facility] (:50:20) pH: 7.42 pH units pCO2: 41.1 mmHg pO2: 45.5 mmHg Na: 137 mmol/L K: 4.3 mmol/L iCa: 1.10 mmol/L Cl: 97 mmol/L TCO2: 26.5 mEq/L Hct: 33 % Hb: 11.2 g/dL Glu: 363 mg/dL Lac: 2.5 mmol/L Cr: 0.9 mg/dL BUN: 20 mg/dL A Ice Cream Van Vendor POC Test Results from [facility] Rapid COVID antigen (::19) COVID: - Rapid influenza antigen (:) Flu: - ................... ................... ................... ................... ................... ................... ................... ........ Ice Cream Van Vendor Note From [facility]: Pt reports dizziness with standing/movement since Thursday. Pt sts she has had a dry cough since Thursday. Pt denies CP, SOB, MARIE, MATHSI, blurred vision, f/n/v/d. Pt is alert, NAD. Orthostatic BP, VS otherwise stable. Afebrile. Non focal neuro exam. Lungs CTA. Benign ABD exam. No LE edema. Rapid covid and flu negative. EKG and labs uploaded. [facility] recommends pt be transported to the ED. 911 initiated for transport to [place] ED. 500 cc of normal saline administered prior to transport. SBAR to [facility]. ................... ................... ................... ................... ................... ................... ................... ........ Disposition: Fulfilled Rafaela Ponce MD [address] [facility],[address], [place], [address], [employer] 12/21/2023 16:55:43 OBGyn Episode No OBEpisode recorded.
--- OUTSIDE RECORDS SUMMARY | 2025-01-16 15:36 | XMS_ITS | Clinical Summary ---
Author Organization [facility] Address [address] [place] [address] Phone Care Team Providers Care Undergraduate Internship Name Role Phone Anabelle Obrien RN Primary [...] 10/06/2023 COPD (chronic obstructive pu lmonary disease) ([facility] V24, [facility] V28) 10/06/2023 Disorder of intervertebral disc of lumbar spine 10/06/2023 Hyperlipidemia 10/06/2023 Hypertension 10/06/2023 Lumbar radiculopathy 10/06/2023 Mild anxiety 10/06/2023 Osteoporosis 10/06/2023 Paroxysmal atrial fibrillation ([facility] V24, [facility] V28) 10/06/2023 Hypomagnesemia 10/06/2023 Peripheral vascular disorder ([facility] V24) 10/05 Urinary incontinence 10/06/2023 Pleural effusion on left 05/12/2023 Resolved Problems Problem Noted Date Diagnosed Date Resolved Date Adenocarcinoma of left lung ([facility] V24, [facility] V28) 10/06/2023 09/15/2024 Nicotine dependence 10/06/2023 09/16/19 25 Surgical History Surgery Date Site/Laterality Comments HYSTERECTOMY N/A PROCEDURE: HISTORICAL HYSTERECTOMY COLONOSCOPY N/A PROCEDURE: HISTORICAL COLONOSCOPY OTHER SURGICAL HISTORY N/A PROCEDURE: ME SLING OPERATION STRESS INCONTINENCE OTHER SURGICAL HISTORY N/A PROCEDURE: ME OSTECTOMY COMPLETE OTHER METATARSAL HEAD OTHER SURGICAL HISTORY 03/18/2023 PROCEDURE: ME THORACOSCOPY W/LOBECTOMY SINGLE LOBE Medical History Medical History Date Comments Anxiety disorder DX:Anxiety diso rder COPD (chronic obstructive pu lmonary disease) ([facility] V24, [facility] V28) DX:COPD (chronic o bstructive pulmonary disease) ([facility]) Dyslipidemia DX:Dyslipidemia HTN (hypertension) DX:HTN (hyper tension) PVD (peripheral vascular dis ease) ([facility] V24) DX:PVD (peripheral vascular disease) ([facility]) Tobacco abuse DX:Tobacco abuse History of uterine cancer DX:His tory of uterine cancer Type 2 diabetes mellitus wit hout complications ([facility] V24, [facility] V28) DX:Type 2 bianca betes mellitus without complications ([facility]) Urinary incontinence DX:Urinary incontinence Osteoporosis [...] patient's age to complete this topic Insurance [facility] MEDICARE Member Subscriber Plan / Payer (Ef fective 2022-Present) Name:Tete Segovia Relation to Subscriber:Self Name:Tete Segovia Payer ID:[id number] Group ID:[id number] Type:Not on file Address: [place] [address] [address] [place] [address] Care Teams Undergraduate Internship Relationship Specialty Start Date End Date Anabelle Obrien RN [address] [place] [address] [place] [address] PCP - General 11/07/22
[2025-01-16 17:41] LABS: Microalbum/Creatinine Ratio Ur 63.1 ug/mg cr (<30)
== END 2025-01-16 14:12 | disposition home or self-care (01) ==
LOC: HO.HHCL 14:11
PROVIDERS: Visit Provider Registered Nurse
DX: Z00.00 Encounter for general adult medical examination without abnormal findings (principal); E11.65 Type 2 diabetes mellitus with hyperglycemia
CPT/HCPCS: 82043; 82570

== ENCOUNTER 2025-01-19 11:17 | Outpatient (AMB) | payer OTHER, SELFPAY ==
--- NOTE | 2025-01-19 11:25 | HO.NEPHOV ---
Vital Signs 01/19/25 11:27 Height 5 ft 4 in Weight 176 lb 6 oz BMI 30.3 BP 124/60 Blood Pressure Location Lt brachial Position Sitting Pulse 90 Pulse Source Pulse Oximeter Pulse Oximetry (%) 93 Oxygen Delivery Method Room Air Intake Visit Reasons: 7mon follow up w/labs-Conf Fixture Repairer Fabricator Required: Yes Fixture Repairer Fabricator Language: Transportation Dispatch Manager Services: Fixture Repairer Fabricator Offered & Declined ([facility] Fixture Repairer Fabricator services refused, pt accompanied by daughter ) Accompanied by: Daughter Allergies ciprofloxacin (From [facility]) Allergy (Severe, Verified 01/19/25 11:26) ANAPHYLAXIS HPI Comments Details: Tete was seen in follow up for hypomagnesemia. She has longstanding history of hypertension and diabetes mellitus. She denies nausea, vomiting or diarrhea. She has no history of calcium disorders. She has not been taking any diuretics. She has history of lung cancer and had undergone surgery. She never received any chemotherapy. She has no history of nephrocalcinosis. She has no family history of hypomagnesemia. She has history of excessive alcohol intake for a long time but currently does not drink at all. Her blood pressure has been at goal. She does not have any chest pain, shortness of breath, palpitation, syncope or history of cardiac dysfunction. She denied any active complaints during the time of this office visit [facility] Medical History (Updated 01/19/25 @ 11:26 by Beau Sterling MD) History of lung cancer Personal history of nicotine dependence CAD (coronary artery disease) Supplemental oxygen dependent Hx of cancer of uterus Salmonella Hypoxemia History of uterine cancer Type 2 diabetes mellitus, with long-term current use of insulin COPD (chronic obstructive pulmonary disease) PVD (peripheral vascular disease) Osteoporosis Family history of colon cancer Anxiety Dyslipidemia HTN (hypertension) Surgical History (Updated 12/19/24 @ 10:31 by Crystal Abdi PA-C) Hx of surgical procedure (07/28/24) History of lung surgery History of bunionectomy of left great toe History of colonoscopy (06/13/24) History of pubovaginal sling History of hysterectomy Family History Brother Colon cancer Social History Household Members: Family Housing: House Are you a primary urgent care technician to a significant other at home: No Do you presently have visiting nurse or other home services: No Alcohol intake: never Patient Tobacco Use Status: Former Tobacco user Tobacco use type: Cigarette Cigarettes Per Day: 15 service: No Review of Systems Const All systems reviewed & are unremarkable except as noted in HPI and below Physical Exam Const General: comfortable and no acute distress Orientation/consciousness: patient oriented x3 HEENT Head: Yes normocephalic Mouth: Normal oral and palatal mucosa present Eyes EOM: EOMs intact bilaterally Neck Neck: Yes supple Resp Auscultation: clear to auscultation bilaterally Cardio Jugular venous distension: no JVD Rate: regular rate GI Palpation (GI): Soft to palpation Auscultation: normal bowel sounds General: Yes no CVA tenderness Back/Spine/Pelvis Back: no CVA tenderness Skin General skin exam: no rashes or lesions noted Neuro General: patient oriented x3 and moves all extremities Extrem General: Yes no pedal edema Results Reviewed Nephrology Results: Hgb, (12.0-16.0) 10.9 g/dl L 01/13/25 WBC, (4.8-10.8) 9.0 X10*3/uL 01/13/25 Plt Count, (160-400) 279 X10*3/uL 01/13/25 Sodium, (135-145) 138 mmol/L 01/13/25 Potassium, (3.3-5.1) 4.5 mmol/L 01/13/25 Chloride, (96-108) 102 mmol/L 01/13/25 Carbon Dioxide, (22-29) 27 mmol/L 01/13/25 BUN, (9-16) 25 mg/dL H 01/13/25 Creatinine, (0.5-1.4) 1.23 mg/dL 01/13/25 Urine Creatinine 131.50 mg/dL 01/16/25 Assessment & Plan Assessment & Plan (1) HTN (hypertension): Code(s): I10 - Essential (primary) hypertension Category: Medical Qualifiers: Hypertension type: primary hypertension Qualified Code(s): I10 - Essential (primary) hypertension (2) Hypomagnesemia: Code(s): E83.42 - Hypomagnesemia Category: Medical (3) CKD stage 3a, GFR 45-59 ml/min: Code(s): N18.31 - Chronic kidney disease, stage 3a Category: Medical Plan Tete most likely has 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 Her renal functions are stable. She also has been taking proton pump inhibitor in the past . Her Magnesium has been increased. Her blood pressure has been at goal on current medication regimen. Her serum potassium had been normal. I shall consider starting her on Jardiance with time soon. She may be a candidate for amiloride. I did not make any other medication changes today but ordered follow up lab work. All her and her daughter's questions were answered Orders: Orders Protein Creatinine Ratio, Ur 2 Months E83.42 - Hypomagnesemia, I10 - Essential (primary) hypertension, N18.31 - Chronic kidney disease, stage 3a Electrolytes 2 Months E83.42 - Hypomagnesemia, I10 - Essential (primary) hypertension, N18.31 - Chronic kidney disease, stage 3a Creatinine 2 Months E83.42 - Hypomagnesemia, I10 - Essential (primary) hypertension, N18.31 - Chronic kidney disease, stage 3a Magnesium 2 Months E83.42 - Hypomagnesemia, I10 - Essential (primary) hypertension, N18.31 - Chronic kidney disease, stage 3a Blood Urea Nitrogen 2 Months E83.42 - Hypomagnesemia, I10 - Essential (primary) hypertension, N18.31 - Chronic kidney disease, stage 3a Coding Level of Care Code Est Pt Level 4 (41875) Diagnoses Primary hypertension I10 Hypertension type: primary hypertension Hypomagnesemia E83.42 CKD stage 3a, GFR 45-59 ml/min N18.31
[2025-01-19 11:27] VITALS: BP 124/60; PULSE 90; O2SAT 93; BMI 30.3
--- OUTSIDE RECORDS SUMMARY | 2025-01-19 12:07 | XMS_ITS | Encounter Summary ---
Author Organization [employer] Address [address] [place] [address] Care Team Providers Care Lead Die Molder Name Role Phone Anabelle Obrien Primary Care Provider [phone] Orlando Perkins MD Unavailable [phone] Pardeep Floyd Unavailable Beau Sterling MD Unavailable Nora Valdez Unavailable Encounter Details Date Type Department Care Team (Late st Contact Info) Description 05/21/2023 Abstract [facility] MEDICINE [address] [place], [place] [phone] Syl Robert Social History Tobacco Use Types [...] Description 03/13/2025 10:00 AM EDT Office Visit [facility] MED [facility] PEDS [address] [place], [place] [phone] Anabelle Obrien FNP [address] [place], [place] [phone] documented as of this encounter Procedures Procedure [...] documented as of this encounter Care Teams Lead Die Molder Relationship Specialty Start Date End Date Anabelle Obrien FNP [address] [place], [place] [phone] PCP - General Family Medicine 06/02/22 Orlando Perkins MD [address] [place] [address] Cardiology 07/14/24 Pardeep Floyd [address] [place] [address] Pulmonary Disease 07/14/24 Beau Sterling MD [address] [place] [address] Nephrology 07/14/24 Nora Valdez [address]rd [place] [address] Gastroenterology 07/14/24 documented as of this encounter
--- OUTSIDE RECORDS SUMMARY | 2025-01-19 12:07 | XMS_ITS | Data Portability ---
Author Organization [employer] [facility], [facility] Address [address] [place] [address] Care Team Providers Care Blast Furnace Supervisor Name Role Phone HIM CCA OTHER Assessment Encounter Date Assessment Date Assessment LastModified by Organization Details LastModified Time 12/21/2023 12/21/2023 I provided real -time medical direction via phone for this encounter, and was available for additional phone based assistance as needed. I have reviewed and agree with the Assessment and Plan as documented by the Cheese Pancake Roller. We discussed the diagnostic uncertainty of home visits and the risk associated with this. Diabetics can have silent ischemia, we have no old records nor does patient have access to old EKG so her EKG is considered ischemic until proven otherwise. Advised need for evaluation for cardiac/MANAGER COUNCIL event in the ER emergently the patient/family given the opportunity to ask questions. Patient understood rationale for going to the ER via EMS/report called to [place] [facility] spoke to ED physician aaron Not available 12/21/2023 15:04:08 Plan of Treatment Reminders Order Date Submit Date Provider Last Modified By Organization Details Last Modified Time Details Appointments None recorded. Lab rapid SARS CoV 2 Ag, QL IA, respiratory specimen 2023 024 [email or web address] 0 [facility], [address] [place] [address], [phone] 4 15:07:34 rapid flu (A+B) 2023 024 [email or web address], [phone] 4 15:07:32 BMP, serum or plasma 2023 024 [email or web address] [address], [phone] 4 15:07:07 Referral None recorded. Procedures None recorded. Surgeries None recorded. Imaging electrocard iogram 2023 024 [email or web address] [address], [address] [place] [address] 4 15:07:05 Medication Orders sodium chloride 0.9 % intravenous solution 2023 024 [email or web address] 0 Not available 15:07:06 Patient TargetsNo targets recorded. Patient InstructionsNo instructions recorded. Reason for Referral None Reported. Results Created Date Observation Date Name Description Value Unit Range Abnormal Flag Note LastModifiedBy Organization Detail LastModifiedTime 12/21/19 24 12/21/2023 rapid flu (A+B) Flu negati ve Not Available [facility] ed [address] [place] [address], [address] [place] [address] 12/21/2023 15:07:14 12/21/19 24 12/21/2023 rapid SARS CoV 2 Ag, QL IA, respi rator y speci men rapid SARS CoV 2 Ag, QL IA, respiratory specimen negati ve Not Available [facility] ed [address] [place] [address], [address] [place] [address] 12/21/2023 15:07:12 12/21/19 24 12/21/2023 BMP, serum or plasm a GLU 363 Not Available [address], [address] [place] [address] 12/21/2023 14:57:23 12/21/19 24 12/21/2023 elect rocar diogr am No observ ation record ed. [address], [address] [place] [address] 12/21/2023 15:07:00 Result Notes None recorded. Medical [...] Available No t Available [employer] [facility] [place] USE DIRECTED TO TEST BLOOD SUGAR EVERY 8 HOURS active Not Available Not Available No t Available Vitals Date Recorded Body temperature Heart rate Body weight Oxygen saturation Oxygen saturation in Arterial blood by Pulse oximetry Respiratory rate Body height Systolic And Diastolic Systolic And Diastolic Provider Name and Address Organization Details Last Updated DateTime 4 98.9 [degF] 78 /min 03044.3 36 g 95 % 95 % 14 [...] SNOMED-CT Code Diagnosis ICD10 Code Diagnosis Note [id number] Rafaela Ponce MD Main - [facility] [address] [place] [phone] 12/21/2023 14:44:16 12/21/2023 23:20:59 Dizziness [id number] R42 pat has recently been seen by cardiology and had an echo, the daughter is reporting what sounds like a low EF. BMP primarily concerning for hypoglycem ia ordered 500 cc of normal saline since EF unknownWit h the dizziness although neuro exam was non-focal she could still be having a posterior circulatio n CVA which we cannot workup at home Cough [id number] R05.9 Health Concerns Section Related Observation LastModified by Organization Detai ls LastModified Time None Recorded Concern Status LastModified by Organization Details LastModified Time None Recorded Advance Directives Directive None Recorded Payers Insurance Date Sequence Insurance Name Policy Number Policy Palacios Covered Member ID Palacios Member ID Guarantor Name 12/21/2023 1 [facility] - DOS ON OR AFTER 2022 - DUAL ELIGIBLE - ALF OPTIONS AND ONE CARE (MEDICARE REPLACEMENT/ADV ANTAGE - HMO) Dyan aparicio [id number] Dyan cheek Notes Date Note Type Note [...] without difficulty. Daughter would like member evaluated. Cheese Pancake Roller POC Test Results from Eldon Mercado [facility] (:50:20) pH: 7.42 pH units pCO2: 41.1 mmHg pO2: 45.5 mmHg Na: 137 mmol/L K: 4.3 mmol/L iCa: 1.10 mmol/L Cl: 97 mmol/L TCO2: 26.5 mEq/L Hct: 33 % Hb: 11.2 g/dL Glu: 363 mg/dL Lac: 2.5 mmol/L Cr: 0.9 mg/dL BUN: 20 mg/dL A Cheese Pancake Roller POC Test Results from Eldon Mercado [facility] Rapid COVID antigen (::19) COVID: - Rapid influenza antigen (:) Flu: - ................... ................... ................... ................... ................... ................... ................... ........ Cheese Pancake Roller Note From Eldon Mercado: Pt reports dizziness with standing/movement since Thursday. Pt sts she has had a dry cough since Thursday. Pt denies CP, SOB, MARIE, MATHIS, blurred vision, f/n/v/d. Pt is alert, NAD. Orthostatic BP, VS otherwise stable. Afebrile. Non focal neuro exam. Lungs CTA. Benign ABD exam. No LE edema. Rapid covid and flu negative. EKG and labs uploaded. [facility] recommends pt be transported to the ED. 911 initiated for transport to [place] ED. 500 cc of normal saline administered prior to transport. SBAR to [facility]. ................... ................... ................... ................... ................... ................... ................... ........ Disposition: Fulfilled Rafaela Ponce MD [address] [facility], [place], [address], [employer] 12/21/2023 16:55:43 OBGyn Episode No OBEpisode recorded.
--- OUTSIDE RECORDS SUMMARY | 2025-01-19 12:07 | XMS_ITS | Clinical Summary ---
Author Organization [facility] Address [address] [place] [address] Phone Care Team Providers Care Assembler Wire Mesh Gate Name Role Phone Anabelle Obrien RN Primary [...] 10/06/2023 COPD (chronic obstructive pu lmonary disease) ([facility] V24, [facility] V28) 10/06/2023 Disorder of intervertebral disc of lumbar spine 10/06/2023 Hyperlipidemia 10/06/2023 Hypertension 10/06/2023 Lumbar radiculopathy 10/06/2023 Mild anxiety 10/06/2023 Osteoporosis 10/06/2023 Paroxysmal atrial fibrillation ([facility] V24, [facility] V28) 10/06/2023 Hypomagnesemia 10/06/2023 Peripheral vascular disorder ([facility] V24) 10/05 Urinary incontinence 10/06/2023 Pleural effusion on left 05/12/2023 Resolved Problems Problem Noted Date Diagnosed Date Resolved Date Adenocarcinoma of left lung ([facility] V24, [facility] V28) 10/06/2023 09/15/2024 Nicotine dependence 10/06/2023 09/16/19 25 Surgical History Surgery Date Site/Laterality Comments HYSTERECTOMY N/A PROCEDURE: HISTORICAL HYSTERECTOMY COLONOSCOPY N/A PROCEDURE: HISTORICAL COLONOSCOPY OTHER SURGICAL HISTORY N/A PROCEDURE: MN SLING OPERATION STRESS INCONTINENCE OTHER SURGICAL HISTORY N/A PROCEDURE: MN OSTECTOMY COMPLETE OTHER METATARSAL HEAD OTHER SURGICAL HISTORY 03/18/2023 PROCEDURE: [place] THORACOSCOPY W/LOBECTOMY SINGLE LOBE Medical History Medical History Date Comments Anxiety disorder DX:Anxiety diso rder COPD (chronic obstructive pu lmonary disease) ([facility] V24, [facility] V28) DX:COPD (chronic o bstructive pulmonary disease) ([facility]) Dyslipidemia DX:Dyslipidemia HTN (hypertension) DX:HTN (hyper tension) PVD (peripheral vascular dis ease) ([facility] V24) DX:PVD (peripheral vascular disease) ([facility]) Tobacco abuse DX:Tobacco abuse History of uterine cancer DX:His tory of uterine cancer Type 2 diabetes mellitus wit hout complications ([facility] V24, [facility] V28) DX:Type 2 bianca betes mellitus without complications ([facility]) Urinary incontinence DX:Urinary incontinence Osteoporosis [...] 2023-2 5 season) 2024 09/09/2021, 11/28/2020, 10/31/2020 Depression Screening 07/06/2024 DTaP,Tdap,and Td Vaccines (2 - Td or Tdap) 08/10/2024 08/10/2014 Diabetes: Annual Urine Albumin-Creatinine Ratio (uACR) 09/06/2024 Diabetes: Blood Sugar Contro l Test (HGBA1C) 01/08/2025 07/11/2024 Influenza Vaccine (#1) 2025 08/10/2014 Cholesterol Screening (Lipid Panel) 04/23/2028 04/23/2023 MMR [...] to complete this topic Insurance [facility] MEDIC[facility] Member Subscriber Plan / Payer (Ef fective 2022-Present) Name:Tete Segovia Relation to Subscriber:Self Name:Tete Segovia Payer ID:[id number] Group ID:[id number] Type:Not on file Address: [place] [address] [address] [place] [phone] Care Teams Assembler Wire Mesh Gate Relationship Specialty Start Date End Date Anabelle Obrien RN [address] [place] [address] PCP - General 11/07/22
== END 2025-01-19 11:52 | disposition home or self-care (01) ==
LOC: HO.HKAS 11:17
PROVIDERS: PCP Registered Nurse; Visit Provider Internal Medicine Nephrology
DX: I10 Essential (primary) hypertension (principal); E83.42 Hypomagnesemia; N18.31 Chronic kidney disease, stage 3a
CPT/HCPCS: 99214

== ENCOUNTER → 2025-01-19 11:17 | Outpatient (BNVA) | payer OTHER, SELFPAY | PROVIDERS: PCP Registered Nurse; Visit Provider Internal Medicine Nephrology | DX: I12.9 Hypertensive chronic kidney disease with stage 1 through stage 4 chronic kidney disease, or unspecified chronic kidney disease (principal); N18.31 Chronic kidney disease, stage 3a; E83.42 Hypomagnesemia | CPT/HCPCS: 99212 ==

== ENCOUNTER 2025-02-23 11:04 | Outpatient (REF) | payer OTHER, SELFPAY ==
--- NOTE | ~2025-02-23 | MM_ITS ---
EXAMINATION: MM SCREENING DIGITAL BREAST TOMOSYNTHESIS, BILATERAL CLINICAL INFORMATION: Screening. Asymptomatic. COMPARISON: Mammography: Comparison is made with available priors TECHNIQUE: Digital breast mammography with tomosynthesis is performed in both the craniocaudal and mediolateral oblique views along with computer-aided detection (CAD). FINDINGS: The breasts are almost entirely fatty (ACR BI-RADS breast composition Category a). There are no significant masses, abnormal calcifications, or other abnormalities. MM/MM tomosynthesis screening BI IMPRESSION: No mammographic evidence of malignancy. ASSESSMENT: BI-RADS BI-RADS 1 - Negative RECOMMENDATION: Routine annual mammography screening. 1 year F/U This examination should not preclude the clinical evaluation of a suspicious palpable abnormality. This patient's information was entered into a reminder system with a target due date for their next mammogram. Electronically signed by: Astrid Garrett DO 02/27/2025 03:30 PM EDT
--- OUTSIDE RECORDS SUMMARY | 2025-02-23 12:41 | XMS_ITS | Encounter Summary ---
Author Organization [employer] Address [address] [place] [address] Care Team Providers Care Cage Maker Machine Name Role Phone Anabelle Obrien Primary Care Provider [phone] Orlando Perkins MD Unavailable [phone] Pardeep Floyd Unavailable Beau Sterling MD Unavailable Nora Valdez Unavailable Encounter Details Date Type Department Care Team (Late st Contact Info) Description 05/21/2023 Abstract [facility] MEDICINE [address] [place], [place] [phone] Syl Robert Social History Tobacco Use Types [...] Care Team (Late st Contact Info) Description 03/01/2025 10:00 AM EDT Medication Management [facility] MED & PEDS [address] [place], [place] [phone] Lea Saavedra PharmD [address] [place] [address] 03/13/2025 10:00 AM EDT Office Visit [facility] [address] [place] [address] Anabelle Obrien FNP [address] [place], [place] [phone] documented as of this encounter Procedures Procedure [...] documented as of this encounter Care Teams Cage Maker Machine Relationship Specialty Start Date End Date Anabelle Obrien FNP [address] [place] [address] PCP - General Family Medicine 06/02/22 Orlando Perkins MD [address] [place] [address] Cardiology 07/14/24 Pardeep Floyd [address] [place] [address] Pulmonary Disease 07/14/24 Beau Sterling MD [address] [place] [address] Nephrology 07/14/24 Nora Valdez [address]rd [place] [address] Gastroenterology 07/14/24 documented as of this encounter
--- OUTSIDE RECORDS SUMMARY | 2025-02-23 12:41 | XMS_ITS | Clinical Summary ---
Author Organization [facility] Address [address] [place] [address] Phone Care Team Providers Care Manufacturing Industrial Engineer Name Role Phone Anabelle Obrien RN Primary [...] 10/06/2023 COPD (chronic obstructive pu lmonary disease) ([facility] [place], [facility] V28) 10/06/2023 Disorder of intervertebral disc of lumbar spine 10/06/2023 Hyperlipidemia 10/06/2023 Hypertension 10/06/2023 Lumbar radiculopathy 10/06/2023 Mild anxiety 10/06/2023 Osteoporosis 10/06/2023 Paroxysmal atrial fibrillation ([facility] V24, [facility] V28) 10/06/2023 Hypomagnesemia 10/06/2023 Peripheral vascular disorder ([facility] V24) 10/05 Urinary incontinence 10/06/2023 Pleural effusion on left 05/12/2023 Resolved Problems Problem Noted Date Diagnosed Date Resolved Date Adenocarcinoma of left lung ([facility] [place], [facility] V28) 10/06/2023 09/15/2024 Nicotine dependence 10/06/2023 09/16/19 25 Surgical History Surgery Date Site/Laterality Comments HYSTERECTOMY N/A PROCEDURE: HISTORICAL HYSTERECTOMY COLONOSCOPY N/A PROCEDURE: HISTORICAL COLONOSCOPY OTHER SURGICAL HISTORY N/A PROCEDURE: [place] SLING OPERATION STRESS INCONTINENCE OTHER SURGICAL HISTORY N/A PROCEDURE: [place] OSTECTOMY COMPLETE OTHER METATARSAL HEAD OTHER SURGICAL HISTORY 03/18/2023 PROCEDURE: [place] THORACOSCOPY W/LOBECTOMY SINGLE LOBE Medical History Medical History Date Comments Anxiety disorder DX:Anxiety diso rder COPD (chronic obstructive pu lmonary disease) ([facility] V[facility], [facility] V28) DX:COPD (chronic o bstructive pulmonary disease) ([facility]) Dyslipidemia DX:Dyslipidemia HTN (hypertension) DX:HTN (hyper tension) PVD (peripheral vascular dis ease) ([facility] V24) DX:PVD (peripheral vascular disease) ([facility]) Tobacco abuse DX:Tobacco abuse History of uterine cancer DX:His tory of uterine cancer Type 2 diabetes mellitus wit hout complications ([facility] V[facility], [facility] V28) DX:Type 2 bianca betes mellitus without complications ([facility]) Urinary incontinence DX:Urinary incontinence Osteoporosis DX:Osteoporosis Nicotine [...] patient's age to complete this topic Insurance [facility] MEDICARE Member Subscriber Plan / Payer (Ef fective 2022-Present) Name:Tete Segovia Relation to Subscriber:Self Name:Tete Segovia Payer ID:[id number] Group ID:[id number] Type:Not on file Address: [place] [address] [address] [place] [phone] Care Teams Manufacturing Industrial Engineer Relationship Specialty Start Date End Date Anabelle Obrien RN [address] [place] [address] PCP - General 11/07/22
== END 2025-02-23 11:05 | disposition home or self-care (01) ==
LOC: HO.MAMMO 11:04
PROVIDERS: PCP Registered Nurse; Visit Provider Registered Nurse
DX: Z12.31 Encounter for screening mammogram for malignant neoplasm of breast (principal)
CPT/HCPCS: 77063; 77067

== ENCOUNTER → 2025-02-23 11:15 | Outpatient (BNV) | payer OTHER, SELFPAY | PROVIDERS: PCP Registered Nurse; Visit Provider Internal Medicine | DX: Z12.31 Encounter for screening mammogram for malignant neoplasm of breast (principal) | CPT/HCPCS: 77063; 77067 ==

== ENCOUNTER 2025-03-13 11:17 | Outpatient (REF) | payer OTHER, SELFPAY ==
--- OUTSIDE RECORDS SUMMARY | 2025-03-13 10:00 | XMS_ITS | Encounter Summary ---
Author Organization [employer] Address [address] [facility] [address]t [place] [address] Care Team Providers Care Membership Sales Advisor Name Role Phone Anabelle Obrien Primary Care Provider [phone] Orlando Perkins MD Unavailable Pardeep Floyd Unavailable Beau Sterling MD Unavailable Nora Valdez Unavailable Lea Saavedra PharmD Unavailable [phone] Encounter Details Date Type Department Care Team (Late st Contact Info) Description 03/13/2025 10:00 AM EDT Office Visit [facility] [address] [place], [place] [phone] Anabelle Obrien FNP [address] [place], [place] [phone] Iron deficiency anemia, unspecified iron deficiency anemia type (Primary Dx); Type 2 diabetes mellitus with hyperglycemia, without long-term current use of insulin ([facility]) Social History Tobacco Use Types Packs/Day Years [...] housing situation today? I have jennifer kent 03/13/[address] you li ve. Do you have problems with any of the following? None of the above 03/13/2025 Food Insecurity Answer Date Recorded Within the past 12 months, y ou worried that your food would run out before you got money to buy more: Never True 03/13/2025 Within the past 12 months,th e food you bought just didn't last and you didn't have enough money to get more: Never True 02/2025 Transportation Answer Date Recorded In the past 12 months, has l ack of transportation kept you from medical appts, meetings, work or from getting things needed for daily living? No 03/13/2025 Utilities Answer Date Recorded In the past 12 months, has t he electric, gas, oil or water company threatened to shut off services in your home? No 03/13/2025 Depression Answer Date Recorded Patient Health Questionnaire-2 Score 0 07/14/2024 Internet Access Answer Date Recorded Internet Access Q1 Yes 03/13/2025 Internet Access Q2 Not on file 03/13/2025 Comments Unknown Sex and Gender Information Value Date Recorded Sex Assigned at Female 05/05/2022 10:27 AM EDT Legal Sex Female 10:27 AM EDT Gender Identity Female 05/05/2022 10:27 AM EDT Sexual Orientation Choose not to disclose 2021 10:27 AM EDT documented as of this encounter Last Filed Vital Signs Vital Sign Reading Time Taken Comments Blood Pressure 135/67 03/13/2025 10:15 AM EDT Pulse 86 03/13/2025 10:15 AM EDT Temperature 37.1 C (98.7 F) 03/13/2025 10:15 AM EDT Respiratory Rate 16 03/13/2025 10:15 AM EDT Oxygen Saturation - - Inhaled Oxygen Concentration - - Weight 78 kg (172 lb) 03/13/2025 10:15 AM EDT Height 162.6 cm (5' 4 ) 03/13/2025 10:15 AM EDT Body Mass Index 29.52 03/13/2025 10:15 AM EDT documented in this encounter Patient Instructions * Patient Instructions* DEMETRICE Rodgers - 03/13/2025 10:00 AM EDT Lab Results Component Value Date HGBA1C 10.2 (A) 03/01/2025 documented in this encounter Miscellaneous Notes * Assessment & Plan Note - DEMETRICE Rodgers - 03/13/2025 10:53 AM EDT Associated Problem(s): Type 2 diabetes mellitus with hyperglycemia, without long-term current use of insulin ([facility]) Given FBG around target, would not adjust Lantus at this time. Cont with the following regimen, andencouraged to increase lifestyle interventions. Plan to decrease sweets/candies and increase water intake. Continues with the following medication regimen: Metformin 1000mg BID Januvia 100mg daily Lantus 15 units subcutaneous at bedtime documented in this encounter Plan of Treatment Upcoming Encounters Date Type Department Care Team (Late st Contact Info) Description 04/07/2025 11:00 AM EDT Medication Management [facility] PEDS [address] [place] [address] Lea Saavedra, PharmD [address] [place] [address] Scheduled Orders Name Type Priority Associated Diagnoses Orde r Schedule CBC auto differential Lab Routine Iron deficiency anemia, unspecified iron deficiency anemia type Expected: 03/13/2025 (Approximate), Expires: 03/13/2026 Ferritin Lab Routine Iron deficiency anemia, unspecified iron deficiency anemia type Expected: 03/13/2025, Expires: 03/13/2026 Vitamin B12/Folate, Serum Panel Lab Routine Iron deficiency anemia, unspecified iron deficiency anemia type Expected: 03/13/2025, Expires: 03/13/2026 Iron And Total Iron Binding Capacity Lab Routine Iron deficiency anemia, unspecified iron deficiency anemia type Expected: 03/13/2025, Expires: 03/13/2026 documented as of this encounter Procedures Procedure Name Priority Date/Time Associated Diagnosis Comments POCT GLUCOSE Routine 03/13/2025 10:16 AM EDT Type 2 diabetes mellitus with hyperglycemia, without long-term current use of insulin ([facility]) documented in this encounter Results * (ABNORMAL) POCT Glucose (03/13/2025 10:16 AM EDT) Glucose Blood, POC 269(A) 60 - 200 mg/dL QC Media Lot # [id number] Lot# Expiration Date Blood Capillary blood specimen / Unknown 03/13/2025 10:16 AM EDT Anabelle SURESH POINT OF CARE TEST ENTER/EDIT ORDERABLES Final Result documented in this encounter Visit Diagnoses Diagnosis Iron deficiency anemia, unspecified iron deficiency anemia type- Primary Type 2 diabetes mellitus with hyperglycemia, without long-term current use of insulin (CMS/HCC) documented in this encounter Additional Health Concerns Assessment Noted Time PHQ-9 Depression Total Score: 4 07/14/19 25 4:51 PM EST documented as of this encounter Care Teams Membership Sales Advisor Relationship Specialty Start Date End Date Anabelle Obrien FNP [address] [place] [address] PCP - General Family Medicine 06/02/22 Orlando Perkins MD [address] [place] [address] Cardiology 07/14/24 Pardeep Floyd [address] [place] [address] Pulmonary Disease 07/14/24 Beau Sterling MD [address] [place] [address] Nephrology 07/14/24 Nora Valdez [address]rd [place] [address] Gastroenterology 07/14/24 Lea Saavedra PharmD [address] [place] [address] Pharmacist Pharmacy 03/01/25 documented as of this encounter
--- OUTSIDE RECORDS SUMMARY | 2025-03-13 13:59 | XMS_ITS | Encounter Summary ---
Author Organization [employer] Address [address] [facility] 7t [place] [address] Care Team Providers Care Payroll Representative Name Role Phone Anabelle Obrien Primary Care Provider Orlando Perkins MD Unavailable [phone] Pardeep Floyd Unavailable Beau Sterling MD Unavailable Nora Valdez Unavailable Lea Saavedra PharmD Unavailable [phone] Encounter Details Date Type Department Care Team (Late st Contact Info) Description 01/20/2025 Results Follow-Up [facility] MED & PEDS [address] [place], [place] [phone] Anabelle Obrien FNP [address] [place], [place] [phone] POCT HGB A1C, POCT Glucose, Ferritin, Additional followed-up results: 4 Social History Tobacco Use Types Packs/Day Years [...] Description 04/07/2025 11:00 AM EDT Medication Management [facility] MED & PEDS [address] [place] [address] Lea Saavedra, PharmD [address] [place] [address] documented as of this encounter Visit Diagnoses Not on filedocumented in this encounter Additional Health Concerns Assessment Noted Time PHQ-9 Depression Total Score: 4 07/14/19 25 4:51 PM EST documented as of this encounter Care Teams Payroll Representative Relationship Specialty Start Date End Date Anabelle Orbien FNP [address] [place] [address] PCP - General Family Medicine 06/02/22 Orlando Perkins MD [address] [place] [address] Cardiology 07/14/24 Pardeep Floyd [address] [place] [address] Pulmonary Disease 07/14/24 Beau Sterling MD [address] [place] [address] Nephrology 07/14/24 Nora Valdez [address] 3rd [place] [address] Gastroenterology 07/14/24 Lea Saavedra PharmD [address] [place] [address] Pharmacist Pharmacy 03/01/25 documented as of this encounter
--- OUTSIDE RECORDS SUMMARY | 2025-03-13 13:59 | XMS_ITS | Encounter Summary ---
Author Organization [employer] Address [address] [facility] [address] [place] [address] Care Team Providers Care Print Shop Manager Name Role Phone Anabelle Obrien LOAN INTER[employer] Primary Care Provider Orlando Perkins MD Unavailable [phone] Pardeep Floyd Unavailable Beau Sterling MD Unavailable Nora Valdez Unavailable Lea Saavedra PharmD Unavailable [phone] Encounter Details Date Type Department Care Team (Late st Contact Info) Description 09/08/2024 Orders Only [facility] [address] [place], [place] [id number] Provider, MD [place] Social History Tobacco Use [...] Description 04/07/2025 11:00 AM EDT Medication Management [facility] MED & PEDS [address] [place] [address] Lea Saavedra, PharmD [address] [place] [address] documented as of this encounter Procedures Procedure [...] documented as of this encounter Care Teams Print Shop Manager Relationship Specialty Start Date End Date Anabelle Obrien FNP [address] [place] [address] PCP - General Family Medicine 06/02/22 Orlando Perkins MD [address] [place] [address] Cardiology 07/14/24 Pardeep Floyd [address] [place] [address] Pulmonary Disease 07/14/24 Beau Sterling MD [address] [place] [address] Nephrology 07/14/24 Nora Valdez [address]rd [place] [address] Gastroenterology 07/14/24 Lea Saavedra PharmD [address] [place] [address] Pharmacist Pharmacy 03/01/25 documented as of this encounter
--- OUTSIDE RECORDS SUMMARY | 2025-03-13 13:59 | XMS_ITS | Encounter Summary ---
Author Organization [employer] Address [address] [facility] 7t [place] [address] Care Team Providers Care Cable Tool Driller Name Role Phone Anabelle Obrien DOCENT COORDINATOR Primary Care Provider [phone] Orlando Perkins MD Unavailable [phone] Pardeep Floyd Unavailable Beau Sterling MD Unavailable Nora Valdez Unavailable Lea Saavedra PharmD Unavailable [phone] Encounter Details Date Type Department Care Team (Late st Contact Info) Description 05/21/2023 Abstract [facility] MEDICINE [address] [place], [place] [id number] Syl Robert Social History Tobacco Use Types [...] Upcoming Encounters Date Type Department Care Team ([facility] st Contact Info) Description 04/07/2025 11:00 AM EDT Medication Management [facility] MED & PEDS [address] [place], [place] [phone] Lea Saavedra PharmD [address] [place] [address] documented as of this encounter Procedures Procedure [...] documented as of this encounter Care Teams Cable Tool Driller Relationship Specialty Start Date End Date Anabelle Obrien FNP [address] [place] [address] PCP - General Family Medicine 06/02/22 Orlando Perkins MD [address] [place] [address] Cardiology 07/14/24 Pardeep Floyd [address] [place] [address] Pulmonary Disease 07/14/24 Beau Sterling MD [address] [place] [address] Nephrology 07/14/24 Nora Valdez [address] [place] [address] Gastroenterology 07/14/24 Lea Saavedra PharmD [address] [place] [address] Pharmacist Pharmacy 03/01/25 documented as of this encounter
--- OUTSIDE RECORDS SUMMARY | 2025-03-13 13:59 | XMS_ITS | Encounter Summary ---
Author Organization [employer] Address [address] [facility] 7[address] [place] [address] Care Team Providers Care Host And Hostess Name Role Phone Anabelle Obrien Primary Care Provider [phone] Orlando Perkins MD Unavailable [phone] Pardeep Floyd Unavailable Beau Sterling MD Unavailable Nora Valdez Unavailable Lea Saavedra PharmD Unavailable [phone] Encounter Details Date Type Department Care Team (Late st Contact Info) Description 10/31/2022 Orders Only [facility] MEDICINE [address] [place] [address] Vanessa Nam LPN Social History Tobacco Use [...] Description 04/07/2025 11:00 AM EDT Medication Management [facility] MED & PEDS [address] [place] [address] Lea Saavedra PharmD [address] [place] [address] documented as of this encounter Visit Diagnoses Not on filedocumented in this encounter Care Teams Host And Hostess Relationship Specialty Start Date End Date Anabelle Obrien FNP [address] [place] [address] PCP - General Family Medicine 06/02/22 Orlando Perkins MD [address] [place] [address] Cardiology 07/14/24 Pardeep Floyd [address] [place] [address] Pulmonary Disease 07/14/24 Beau Sterling MD [address] [place] [address] Nephrology 07/14/24 Nora Valdez [address] 3rd [place] [address] Gastroenterology 07/14/24 Lea Saavedra PharmD [address] [place] [address] Pharmacist Pharmacy 03/01/25 documented as of this encounter
--- OUTSIDE RECORDS SUMMARY | 2025-03-13 13:59 | XMS_ITS | Clinical Summary ---
Author Organization [employer] Address [address] [place] [address] Care Team Providers Care Hoof Trimmer Name Role Phone Anabelle Obrien LABORATORY DIRECTOR Primary Care Provider [phone] Orlando Perkins MD Unavailable [phone] Pardeep Floyd Unavailable Beau Sterling MD Unavailable Nora Valdez Unavailable Lea Saavedra PharmD Unavailable [phone] Allergies Active Allergy Reactions Criticality Noted Date Comments Ciprofloxacin 08/10/2014 Medications * This document contains information received from the source organization and may not represent a complete record from that organization. lisinopril 40 MG tablet Take 40 mg by mouth in the morning. 023 Active cilostazol (Pletal) 50 MG tablet Take 50 mg by mouth 2 times daily. 023 Active hydrALAZINE (Apresoline) 25 MG tablet Take 25 mg by mouth 2 times daily. 023 Active nicotine (Nicoderm, Step 2) 14 MG/24HR patch APPLY 1 PATCH TOPICALLY TO THE SKIN IN THE MORNING DO NOT SMOKE WHILE USING PATCH 023 Active nicotine (Nicoderm CQ) 7 MG/24HR patchIndications :Cigarette nicotine dependence in remission After completion of 14mg/day patch: Apply 1 patch on the skin (one) time each day at the same time x 6 weeks. 48 patch 023 Active Eliquis 5 MG tablet Take 1 tablet by mouth 2 times daily. Active Blood Pressure kit Use to check blood pressure once daily and when symptomatic 1 kit Active gabapentin (Neurontin) 300 MG capsuleIndicatio ns:Lumbar radiculopathy TAKE 1 CAPSULE BY MOUTH AT BEDTIME 90 capsule 3 024 Active Lantus SoloStar 100 UNIT/ML pen INJECT 15 UNITS SUBCUTANEOUSLY AT BEDTIME 15 mL 11 Active Pentips 32G X 4 MM misc USE DIRECTED TO INJECT INSULIN 100 each 11 024 Active meclizine (Antivert) 25 MG tabletIndication s:Dizziness TAKE 1/2 TABLET BY MOUTH THREE TIMES DAILY IN THE MORNING, AT NOON, AND AT BEDTIME NEEDED FOR DIZZINESS 30 tablet 2 Active Calcium Carb-Cholecalcif matthias 600-10 MG-MCG tabletIndication s:Type 2 diabetes mellitus treated with insulin (CMS/HCC) TAKE 1 TABLET BY MOUTH EVERY MORNING 90 tablet 3 024 Active FLUoxetine (PROzac) 40 MG capsuleIndicatio ns:Dysthymic disorder TAKE 1 CAPSULE BY MOUTH EVERY MORNING 90 capsule 3 024 Active famotidine (Pepcid) 20 MG tabletIndication s:Gastroesophage al reflux disease, unspecified whether esophagitis present Take 1 tablet (20 mg) by mouth if needed in the morning and at bedtime for heartburn or indigestion. 60 tablet 11 025 2025 Active metoprolol tartrate (Lopressor) 100 MG tabletIndication s:Essential hypertension,Par oxysmal atrial fibrillation (CMS/HCC) TAKE 1 TABLET BY MOUTH TWICE DAILY IN THE MORNING AND IN THE EVENING Active atorvastatin (Lipitor) 40 MG tabletIndication s:Hyperlipidemia , unspecified hyperlipidemia type TAKE 1 TABLET BY MOUTH EVERY EVENING 180 tablet 3 025 Active Januvia 100 MG tablet TAKE 1 TABLET BY MOUTH EVERY MORNING 90 tablet 3 025 Active hydrOXYzine pamoate (Vistaril) 25 MG capsuleIndicatio ns:Anxiety TAKE 1 CAPSULE BY MOUTH THREE TIMES DAILY NEEDED FOR ANXIETY 90 capsule 3 025 Active Diclofenac Sodium 1 % gelIndications:C ostochondritis Apply thin layer by topical route (quantity as directed on package insert) to affected area of pain 3 times daily as needed. 50 g 1 025 Active Fluticasone-Salm eterol 250-50 MCG/ACT aerosol powderIndication s:Chronic obstructive pulmonary disease, unspecified COPD type (CMS/HCC) INHALE 1 PUFF BY MOUTH TWICE DAILY RINSE MOUTH AFTER USING. 60 each 3 025 Active Incruse Ellipta 62.5 MCG/ACT aerosol powderIndication s:Chronic obstructive pulmonary disease, unspecified COPD type (CMS/HCC) INHALE 1 PUFF BY MOUTH EVERY DAY AT THE SAME TIME RINSE MOUTH AFTER USING 30 each 025 Active Magnesium 400 MG capsule Take 400 mg by mouth Once per day. 90 capsule 1 025 Active ferrous gluconate (Fergon) 324 (38 Fe) MG tabletIndication s:Low ferritin level Take 1 pill every Thursday, Thursday, and Thursday. Take with a full glass of water, and ideally 1 hour before a meal or 2 hours after a meal 36 tablet 025 Active OneTouch Ultra Test test stripIndications :Type 2 diabetes mellitus with hyperglycemia, without long-term current use of insulin ([facility]) USE DIRECTED TO TEST BLOOD SUGAR FOUR TIMES DAILY 100 strip Active Lancets (InfoDifTouch Delica Plus [id number]) miscIndications: Type 2 diabetes mellitus with hyperglycemia, without long-term current use of insulin ([facility]) USE DIRECTED TO TEST BLOOD SUGAR FOUR TIMES DAILY 100 each Active Blood Glucose Monitoring Suppl (ONE TOUCH ULTRA 2) w/Device kitIndications:T ype 2 diabetes mellitus with hyperglycemia, with long-term current use of insulin ([facility]) USE TO CHECK BLOOD SUGAR FOUR TIMES DAILY 1 kit 025 Active empagliflozin (Jardiance) 10 MG Take 1 tablet (10 mg) by mouth Once per day. 30 tablet 2 025 Active metFORMIN XR (Glucophage-XR) 500 MG 24 hr tablet Take 1 tablet (500 mg) by mouth with evening meal. Do not crush, chew, or split. 90 tablet 1 025 2025 Active Blood Glucose Monitoring Suppl (ONE TOUCH ULTRA 2) w/Device kit USE TO CHECK BLOOD SUGAR FOUR TIMES DAILY 1 kit 023 2024 Discontinued(R eorder (will not trigger notification to Pharmacy)) alendronate (Fosamax) 70 MG tablet take 1 tablet once a week with 6 to 8 oz of water 30 min before first food of day. do not lie down for 30 minutes 12 tablet 023 2024 Discontinued(M ed list cleanup (will not trigger notification to Pharmacy)) Continuous Blood Gluc Windows Admin (FreeStyle Reena 2 [place]) deviceIndication s:Type 2 diabetes mellitus with hyperglycemia, without long-term current use of insulin ([facility]) Scan sensor every 8 hours 1 each 023 2024 Discontinued(M ed list cleanup (will not trigger notification to Pharmacy)) Continuous Blood Gluc Sensor (FreeStyle Reena 2 Sensor) miscIndications: Type 2 diabetes mellitus with hyperglycemia, without long-term current use of insulin ([facility]) Apply 1 sensor every 14 days 2 each 11 023 2024 Discontinued(M ed list cleanup (will not trigger notification to Pharmacy)) metFORMIN (Glucophage) 1000 MG tabletIndication s:Type 2 diabetes mellitus without complications (CMS/HCC) TAKE 1 TABLET BY MOUTH TWICE DAILY IN THE MORNING AND IN THE EVENING WITH FOOD 180 tablet 3 024 2024 Discontinued(T herapy completed) Active Problems Problem Noted Date Diagnosed Date Cerebral cavernoma 05/04/2024 Overview (12/07/2024): MRI w/o contrast head completed Apr 2024 demonstrated: Cavernoma/ cavernous angioma, left frontal white matter. No acute stroke/nonhemorrhagic ischemia or acute brain abnormality. September 2024: consult at [facility]. Per consult, does not exhibit features suggestive of past hemorrhage. Annual risk of rupture ~1.5%. No intervention/follow up recommended. Assessment & Plan (12/07/2024 4:47 PM EDT): Continues with intermittent left sided MATHIS. Initial consult with neuro pending. Assessment & Plan (07/14/2024 4:41 PM EST): Continues with intermittent left sided MATHIS. Initial consult with neuro pending. Sebaceous cyst 04/11/2024 Overview (04/11/2024): Location: posterior neck Plan: excision/removal by Dr. Witt - [facility] Surgery - following discussion w/ cards regarding Eliquis Adenoma of colon 01/15/2024 Overview (01/15/2024): Family history of colon CA Following with [facility] GI Last colonoscopy 2021, [...] w/ mag supplement. Referred to Nephrology 09/15/23: [facility] - Dr. [...] OPH: January 2023 w/ Dr. Allison at [facility]. (+) proliferative diabetic retinopathy. Plan for follow up in 1 year. Colonoscopy: 06/13/24 at [facility]. 1 polyp removed. Repeat in 5 years. Paroxysmal atrial fibrillation 04/02/2023 Assessment & Plan (07/14/2024 4:35 PM EST): Following with [facility] - Gregorio Previous medication: verapamil 120mg in the AM Afib during hospitalization in Feb 2024 - possibly triggered by diarrhea and electrolyte imbalance Continues on Eliquis 5mg BID and metoprolol 100mg BID Assessment & Plan (03/07/2024 11:53 AM EDT): [facility] Previous medication: verapamil 120mg in the AM Confirm discontinuation with Cards Afib during hospitalization in Feb 2024 - possibly triggered by diarrhea and electrolyte imbalance Continues on Eliquis 5mg BID and metoprolol 50mg BID Assessment & Plan (01/15/2024 11:22 AM EDT): Following with [facility] Mahogany Perkins Continues with verapamil 120mg in the AM Adenocarcinoma of left lung 11/09/2022 Overview (12/07/2024): Lung CA screening completed 10/14/22 at [facility]. Ordered by Crystal CHANDLER [...] chest without evidence of recurrent disease. 03/28/24: [place] CT Chest (Dr. Harris) - Impression: Left lower lobectomy. Small amount of loculated pleural fluid at the left base which appears similar to the previous study. No suspicious pulmonary nodule. Stable borderline enlarged mediastinal lymph node. 09/05/2024: CT scan completed at [facility]. Impression-left lower lobectomy sequela. No suspicious developing pulmonary nodule or thoracic lymphadenopathy. Trace residual left pleural effusion, improved. Assessment & Plan (12/07/2024 4:50 PM EDT): Cont following with CT scans as recommended Assessment & Plan (04/11/2024 4:57 PM EDT): Next CT scan due September 2024 Assessment & Plan (01/15/2024 11:13 AM EDT): Next CT scan due Mar 2024 Mild anxiety 10/30/2022 Nicotine dependence 10/27/2022 Assessment & Plan (05/13/2023 3:31 PM EST): -Congratulated that no longer smoking cigg -Refill NRT patches 7mg/day sent to the pharmacy Peripheral vascular disease 10/06/2018 Assessment & Plan (12/07/2024 4:40 PM EDT): Following with [facility] - Dr. Perkins. 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 Left common iliac artery: significant stenosis, 50-99%. Left external iliac artery: moderate stenosis 20-49%. Left superficial femoral artery: significant stenosis 50-99% Jun 2024: lower extremity arterial vascular report: Conclusions: significant stenosis right common iliac artery 50-99%. Also occlusion of right superficial femoral artery. Significant stenosis of left common iliac artery 50-99% (also of the left superficial femoral artery). Moderate stenosis 20-49% of the left popliteal artery. Assessment & Plan (01/15/2024 11:24 AM EDT): Following with [facility] - Dr. Perkins. 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 Left common iliac artery: significant stenosis, 50-99%. Left external iliac artery: moderate stenosis 20-49%. Left superficial femoral artery: significant stenosis 50-99% Chronic pain 10/06/2018 Type 2 diabetes mellitus wit h hyperglycemia, without long-term current use of insulin 06/01/2018 Overview (03/13/2025): Lab Results Component Value Date HGBA1C 10.2 (A) 03/01/2025 HGBA1C 9.9 (A) 12/07/2024 HGBA1C 10.2 (A) 07/11/2024 HGBA1C 9.2 (H) 04/23/2023 HGBA1C 8.4 (H) 07/17/2020 A1c: (Target </= 8.0), above goal Lipids: TC 149, LDL 79, HDL 49, TG 94 on Apr 2023 Microalbumin/Cr:Alb: Apr 2023 31.8 Eye exam: last January 2023 Dental: Discuss at follow up TDap/Td: last 08/10/2014 ACEi/ARB: yes Statin: yes CGM order placed: 05/13/23. Approved by insurance but pt stopped using d/t frequent beeping Referral to [facility] CDTM placed 12/07/24 Assessment & Plan (03/13/2025 10:53 AM EDT): Given FBG around target, would not adjust Lantus at this time. Cont with the following regimen, and encouraged to increase lifestyle interventions. Plan to decrease sweets/candies and increase water intake. Continues with the following medication regimen: Metformin 1000mg BID Januvia 100mg daily Lantus 15 units subcutaneous at bedtime Assessment & Plan (12/07/2024 5:10 PM EDT): Given FBG around target, would not adjust Lantus at this time. Cont with the following regimen, and encouraged to increase lifestyle interventions. Plan to decrease sweets/candies and increase water intake. Continues with the following medication regimen: Metformin 1000mg BID Januvia 100mg daily Lantus 15 units subcutaneous at bedtime Assessment & Plan (07/14/2024 4:45 PM EST): [...] EDT): Continues with the following medication regimen: Metformin 1000mg BID Januvia 100mg daily Lantus 5 units subcutaneous at bedtime Assessment [...] 08/10/2014 Chronic obstructive lung disease 08/10/2014 Overview (12/07/2024): Following with [facility] Pulm - Dr. Floyd Continues with fluticasone-salmeterol 250-50 1inh BID, Ellipta daily, proair PRN. Reports breathing well controlled on current regimen. May use supplemental oxygen: 2L/min if doing physical activity or exerting herself (orders through [facility]) (6 min walk test Apr 2024) Assessment & Plan (04/11/2024 4:55 PM EDT): Cont current therapy Resolved Problems Problem Noted Date Diagnosed Date Resolved Date Pressure in head 04/11/2024 12/07/2024 Assessment & Plan (04/11/2024 5:08 PM EDT): Associated characteristics: pulsating, burning sensation, constant discomfort/pressure Onset: months, recently increasing in frequency (now up to 5 days per week) Gross Neuro exam benign Plan: MRI head w/o contrast ordered 04/11/24 Follow up/ED precautions Salmonella food poisoning 03/07/2024 Assessment & Plan (03/07/2024 11:54 AM EDT): - Hospitalized Feb 2024 for Salmonella food poisoning - Reports back to baseline today Primary adenocarcinoma of left lung 04/02/2023 05/13/2023 Overview (04/02/2023): 03/31/23: [place] Thoracic surgery follow up. Respiratory therapy performed [...] Assessment & Plan (11/09/2022 11:10 AM EDT): Combination of auditory, tactile, and visual hallucinations x approx 1 year. Reports that they initiated after stressful event, and recently became more frequent following of loved one Denies SI/HI/thoughts of self harm BE completed following appt with mental health provider Safety planning reviewed Continuous visual hallucinations 10/30/2022 05/13/2023 Continuous tactile hallucinations 10/30/2022 05/13/2023 Type 2 diabetes mellitus, uncontrolled 08/10/2014 10/27/2022 Dysthymia 08/10/2014 03/05/2023 Encounters Date Type Department Care Team Description 03/13/2025 10:00 AM EDT Office Visit [facility] [address] [place] [address] Anabelle Obrien FNP Iron deficiency anemia, unspecified iron deficiency anemia type (Primary Dx); Type 2 diabetes mellitus with hyperglycemia, without long-term current use of insulin ([facility]) 03/13/2025 Travel 03/10/2025 Telephone [facility] [address] [place] [address] Anabelle Obrien FNP chart prep 03/01/2025 Travel 02/23/2025 Orders Only [facility] [address] [place] [address] Anabelle Obrien FNP 02/06/2025 Refill [facility] [address] [place] [address] Anabelle Obrien FNP Type 2 diabetes mellitus with hyperglycemia, without long-term current use of insulin ([facility]) 01/20/2025 Results Follow-Up [facility] [address] [place] [address] Anabelle Obrien FNP POCT HGB A1C, POCT Glucose, Ferritin, Additional followed-up results: 4 01/13/2025 Orders Only GENERIC EXTERNAL DATA DEPARTMENT Provider, Generic External Data 01/13/2025 Refill [facility] [address] [place] [address] Ileana Sim MD Hypomagnesemia (Primary Dx); Low ferritin level 01/09/2025 Refill [facility] [address] [place] [address] Nahid Jordan MD Chronic obstructive pulmonary disease, unspecified COPD type ([facility]) 12/28/2024 Orders Only [facility] Information Management [address] [place] [address] Provider, MD Santo 12/23/2024 Refill [facility] [address] [place], [place] [id number] Anabelle Obrien FNP Chronic obstructive pulmonary disease, unspecified COPD type (CMS/HCC) from Last 3 Months Immunizations Immunization Administration Dates Next Due Hep B, adult [...] 16 03/13/2025 10:15 AM EDT Oxygen Saturation 99% 03/01/2025 10:21 AM EDT Inhaled Oxygen Concentration - - Weight 78 kg (172 lb) 03/13/2025 10:15 AM EDT Height 162.6 cm (5' 4 ) 03/13/2025 10:15 AM EDT Body Mass Index 29.52 03/13/2025 10:15 AM EDT Plan of Treatment Upcoming Encounters Date Type Department Care Team (Late st Contact Info) Description 04/07/2025 11:00 AM EDT Medication Management [facility] [address] [place] [address] Lea Saavedra, PharmD [address] [place] [address] Health Maintenance Due Date Last Done Comments CT Colonography 1955 FIT DNA/Cologuard 1955 FIT 1955 FOBT 1955 Sigmoidoscopy 1955 Diabetes: Foot Exam 1964 RSV Patients and Patients Aged 60 years or older (1 - Risk 60-74 years 1-dose series) 2014 Zoster Vaccines (2 of 3) 04/25/2015 02/28/2015 Pneumococcal Vaccine: 50+ Years (3 of 3 - PCV20 or PCV21) 08/03/2024 08/03/2019, 08/10/2014 DTaP/Tdap/Td Vaccines (2 - Td or Tdap) 08/10/2024 08/10/2014 Eye Exam 01/20/2025 01/21/2024, 01/03, 01/21/2024, Additional history exists COVID-19 Vaccine ( season) 2025 09/09/2021, 11/28/2020, 10/31/2020 Influenza Vaccine (#1) 2025 08/10/2014 Diabetes: Hemoglobin A1C 06/01/2025 025, 12/07/2024, 07/11/2024, Additional history exists Alcohol/Substance Use Screening 07/11/2025 07/11/2024 Depression Screening 07/14/2025 07/14/2024, 07/14/19 Tobacco Screening 12/07/2025 12/07/2024 Lipid Panel 01/13/2026 01/13/2025, 04/05, 12/26/2021, Additional history exists Diabetes: Urine Protein Screening 01/16/2026 01/16/2025, 04/23/2023, 12/26/2021, Additional history exists Mammogram 02/23/2026 02/23/2025, 01/03, 01/02/2023, Additional history exists SDOH Screening 03/13/2026 03/13/2025 Colonoscopy 06/13/2029 06/13/2024, 11/29/2014 Colorectal Cancer Screening [...] hyperglycemia, without long-term current use of insulin ([facility]) POCT GLYCATED HEMOGLOBIN, TOTAL Routine 03/01/2025 11:08 AM EDT Type 2 diabetes mellitus with hyperglycemia, with long-term current use of insulin ([facility]) BI MAMMOGRAM SCREENING TOMOSYNTHESIS BILATERAL Routine 02/23/2025 11:10 AM EDT ALBUMIN, RANDOM URINE W/CREATININE Routine 01/16/2025 2:18 PM EDT Type 2 diabetes mellitus with hyperglycemia, without long-term current use of insulin ([facility]) Healthcare maintenance MAGNESIUM Routine 01/13/2025 1:19 PM EDT CREATININE, SERUM Routine 01/13/2025 1:1 9 PM EDT UREA NITROGEN (BUN) Routine 01/13/2025 1 :19 PM EDT ELECTROLYTE PANEL Routine 01/13/2025 1:1 9 PM EDT LIPID PANEL, STANDARD Routine 01/13/2025 1:19 PM EDT Type 2 diabetes mellitus with hyperglycemia, without long-term current use of insulin ([facility]) Healthcare maintenance VITAMIN D,25-OH,TOTAL,IA Routine 01/13/2025 1:19 PM EDT Type 2 diabetes mellitus with hyperglycemia, without long-term current use of insulin ([facility]) Healthcare maintenance VITAMIN B12/FOLATE, SERUM PANEL Routine 01/13/2025 1:19 PM EDT Type 2 diabetes mellitus with hyperglycemia, without long-term current use of insulin ([facility]) Healthcare maintenance FERRITIN Routine 01/13/2025 1:19 PM EDT Type 2 diabetes mellitus with hyperglycemia, without long-term current use of insulin ([facility]) Healthcare maintenance CBC WITH AUTO DIFFERENTIAL Routine 01/13/2025 1:19 PM EDT History of anemia TRANSTHORACIC ECHO (TTE) COMPLETE Routine 12/27/2024 12:01 PM EDT HM COLONOSCOPY Routine 06/13/2024 4:01 PM EST HEPATITIS C VIRAL RNA, QUANTITATIVE, REAL-TIME PCR Routine 04/23/2023 9:05 AM EDT Healthcare maintenance from Last 3 Months or Most Recently Relevant to Health Maintenance Results * (ABNORMAL) POCT Glucose (03/13/2025 10:16 AM EDT) Glucose Blood, POC 269(A) 60 - 200 mg/dL QC Media Lot # [id number] Lot# Expiration Date Blood Capillary blood specimen / Unknown 03/13/2025 10:16 AM EDT us Anabelle Phalen LABORATORY DIRECTOR POINT OF CARE TEST ENTER/EDIT ORDERABLES Final Result * (ABNORMAL) POCT A1c (03/01/2025 11:08 AM EDT) Hemoglobin A1C 10.2(A) 4.0 - 5.7 % QC Media Lot # [id number] Lot# Expiration Date Blood 03/01/2025 11:0 8 AM EDT us Anabelle Phalen LABORATORY DIRECTOR POINT OF CARE TEST ENTER/EDIT ORDERABLES Final Result * BI Mammogram Screening Tomosynthesis Bilateral (02/23/2025 11:10 AM EDT) Anatomical Region Laterality Modality Breast Bilateral Mammography 02/23/2025 11:1 0 AM EDT Narrative 02/27/2025 3:33 PM EDT [facility] [address] [place], [place] [address] Mammography Report Signed Patient: Tete Ayon MR#: [id number] : 1955 Acct:[id number] Age/Sex: 69 / F ADM Date: 02/23/25 Loc: HO.MAMMO Attending Dr: Anabelle Obrien LABORATORY DIRECTOR Ordering Physician: Anabelle Obrien Results: 1Negat pranay Date of Service: 02/23/25 Follow Up: 1 Year From Orig ina Mammogram Procedure(s): MM tomosynthesis screening BI Accession Number(s): [id number] cc: Anabelle Obrien EXAMINATION: MM SCREENING DIGITAL BREAST TOMOSYNTHESIS, BILATERAL CLINICAL INFORMATION: Screening. Asymptomatic. COMPARISON: Mammography: Comparison is made with available priors TECHNIQUE: Digital breast mammography with tomosynthesis is performed in both the craniocaudal and mediolateral oblique views along with computer-aided detection (CAD). FINDINGS: The breasts are almost entirely fatty [...] target due date for their next mammogram. Electronically signed by: Astrid Garrett DO 02/27/2025 03:30 PM EDT Dictated By: Astrid Garrett DO Signed By: <Electronically signed by Astrid Garrett DO in OV> 02/27/25 1530 DD/ 1110 TD/TT: 02/23/25 1120 Web Marketing Analyst: Procedure Note Donotuseinterpreter, Image - 02/27/2025 [facility] [address] [place] [address] [place] [address] Mammography Report Signed Patient: Markell AyonR#: [id number] : 1955cct:[id number] Age/Sex: 69 / FADM Date: 02/23/25 Loc: HO.MAMMO Attending Dr: Anabelle SURESH Ordering Physician: Anabelle ObrienPResults: 1Negat pranay Date of Service: 02/23/25Follow Up: 1 Year From Orig ina Mammogram Procedure(s): MM tomosynthesis screening BI Accession Number(s): [id number] cc: Anabelle Obrien LABORATORY DIRECTOR EXAMINATION: MM SCREENING DIGITAL BREAST TOMOSYNTHESIS, BILATERAL CLINICAL INFORMATION: Screening. Asymptomatic. COMPARISON: Mammography: Comparison is made with available priors TECHNIQUE: Digital breast mammography with tomosynthesis is performed in both the craniocaudal and mediolateral oblique views along with computer-aided detection (CAD). FINDINGS: The breasts are almost entirely fatty [...] target due date for their next mammogram. Electronically signed by: Astrid Garrett DO 02/27/2025 03:30 PM EDT Dictated By: Astrid Garrett DO Signed By: <Electronically signed by Astrid Garrett DO in OV> 02/27/25 1530 DD/ 1110 TD/TT: 02/23/25 1120 Web Marketing Analyst: Anabelle SURESH IMG BI PROCEDURES Final Result * (ABNORMAL) Albumin, Random Urine W/Creatinine (01/16/2025 2:18 PM EDT) Creatinine, Urine 131.50 mg/dL [facility] Microalbumin Urine 83.0 mg/L [facility] Microalbum Creatinine Ratio Ur 63.1(H) <30 ug/mg cr [facility] Comment:Albumin/Creatinine R atio Reference Ranges: Normal: < 30 ug/mg creatinine Microalbuminuria: 30 - 300 ug/mg creatinineClinical Albuminuria: > 300 ug/mg creatinine Urine (Urine, Random) 01/16/2025 2:18 PM EDT 01/16/2025 4:41 PM EDT Anabelle Obrien [place] HOSP[facility] LAB URINE ORDERABLES Final Res ult Performing Organization Address [facility]/ZIP Co de Phone Number [facility] [address] [place] [phone] * Vitamin D, 25-Hydroxy, Total, Immunoassay (01/13/2025 1:19 PM EDT) Vitamin D 25-OH Total 30.5 >30 ng/mL [facility] Comment: Health Based Reference Values*< 20 ng/mL Tzcjujzck36-40 ng/mL Insufficient> 30 ng/mL Sufficient*Juli CHRISTINE. N Engl J Med. 2007;357:266-280There is no well-established upper level of normal vitamin Dlevels. Some laboratories use 50 ng/mL as an upper limit ofnormal. However, toxicity is patient-dependent and may occurat any level. Careful correlation with the patient'spresentation is necessary and, if there is concern forvitamin D toxicity, treatment should be consideredirrespective of the serum level.Care must be taken in interpreting Vitamin D results fromdifferent laboratories and methodologies. Published datademonstrated that results from patients undergoinghemodialysis may show a negative bias when tested withvarious automated 25-OH vitamin D assays when compared toLC-MS/MS.When testing samples from patients whose predominant form ofVitamin D is Vitamin D2, such as patients receiving VitaminD2 supplementation, results that are subtherapeutic shouldbe confirmed with another method such as LC-MS/MS. Blood Venous blood specimen / Unknown 01/13/2025 1:19 PM EDT 01/13/2025 3:55 PM EDT Anabelle Obrien [facility] LAB BLOOD ORDERABLES Final Res ult Performing Organization Address [facility]/ZIP Co de Phone Number [facility] [address] [place] [phone] * (ABNORMAL) Vitamin B12/Folate, Serum Panel (01/13/2025 1:19 PM EDT) Vitamin B12 >2,000(H ) 200 - 900 pg/mL [facility] Comment:NORMAL 200-900 PG/ML INDETERMINATE 160-199 PG/ML DEFICIENT < 160 PG/ML Folate 7.7 > or = 4.0 ng/mL [facility] Comment:Reference Values:> o r = 4.0 ng/mL< 4.0 ng/mL suggests folate deficiency Methotrexate, aminopterin and folinic acid(leucovorin) are chemotherapeutic agents whose molecularstructures are similar to folate; therefore, the Architectfolate assay cannot be used for patients using these drugs. Blood Venous blood specimen / Unknown 01/13/2025 1:19 PM EDT 01/13/2025 3:55 PM EDT us Anabelle Obrien LABORATORY DIRECTOR LAB BLOOD ORDERABLES Final Res ult Performing Organization Address [facility] Co de Phone Number [facility] [address] [place] [phone] * Creatinine, Serum (01/13/2025 1:19 PM EDT) Creatinine, Serum 1.23 0.5 - 1.4 mg/dL [facility] Estimated Glomerular Filt Rate 43 [facility] Comment:Chronic Kidney Disea se: Estimated GFR < 60 mL/min/1.27u0Wzwcdb Kidney Disease: Estimated GFR < 15 mL/min/1.73m2 01/13/2025 1:19 PM EDT 01/13/2025 3:55 PM EDT us Generic External Data Provider LAB BLOOD ORDERAB LES Final Result Performing Organization Address [facility] Co de Phone Number [facility] [address] [place] [phone] * (ABNORMAL) CBC auto differential (01/13/2025 1:19 PM EDT) White Blood Count 9.0 4.8 - 10.8 X10*3/uL [facility] Red Blood Count 4.30 4.20 - 5.50 X10*6/uL [facility] Hemoglobin 10.9(L) 12.0 - 16.0 g/dl [facility] Hematocrit 34.5(L) 37.0 - 47.0 % [facility] Mean Corpuscular Volume 80.2 80.0 - 98.0 fL [facility] Mean Corpuscular Hemoglobin 25.3(L) 27.0 - 33.0 pg [facility] Mean Corpuscular HGB Conc 31.6 31.0 - 35.0 g/dl [facility] Red Cell Distribution Width 16.3(H) 11.0 - 16.0 % [facility] Platelet Count 279 160 - 400 X10*3/uL [facility] Mean Platelet Volume 10.9 9.4 - 12.3 fL [facility] Neutrophils Percent Auto 68.5 45 - 73 % [facility] Imm Gran Pct Auto 0.6(H) 0.0 - 0.4 % [facility] Lymphocytes Percent Auto 22.3 20 - 40 % [facility] Monocytes Percent Auto 6.5 2 - 11 % [facility] Eosinophils Percent Auto 1.8 0 - 4 % [facility] Basophils Percent Auto 0.3 0 - 2 % [facility] NRBC Pct Auto 0.0 0.0 - 0.2 /100WBC [facility] Neutrophils Absolute Auto 6.2 2.0 - 8.3 x10*3/uL [facility] Imm Gran Abs Auto 0.05(H) 0.00 - 0.03 X10*3/uL [facility] Lymphocytes Absolute Auto 2.0 1.2 - 4.9 X10*3/uL [facility] Monocytes Absolute Auto 0.6 0.1 - 1.2 X10*3/uL [facility] Eosinophils Absolute Auto 0.2 0.0 - 0.4 X10*3/uL [facility] Basophils Absolute Auto 0.0 0.0 - 0.2 X10*3/uL [facility] NRBC Abs Auto 0.000 0.0 - 0.012 X10*3/uL [facility] Blood Venous blood specimen / Unknown 01/13/2025 1:19 PM EDT 01/13/2025 3:55 PM EDT us Anabelle Obrien LABORATORY DIRECTOR LAB BLOOD ORDERABLES Final Res ult Performing Organization Address [facility]/ZIP Co de Phone Number [facility] [address] [place] [phone] * (ABNORMAL) BUN (Blood Urea Nitrogen) (01/13/2025 1:19 PM EDT) Urea Nitrogen (BUN) 25(H) 9 - 16 mg/dL [facility] 01/13/2025 1:19 PM EDT 01/13/2025 3:55 PM EDT [employer] External Data Provider LAB BLOOD ORDERAB LES Final Result Performing Organization Address [facility]/ZIP Co de Phone Number [facility] [address] [place] [phone] * (ABNORMAL) Magnesium (01/13/2025 1:19 PM EDT) Magnesium 1.4(LL) 1.6 - 2.6 mg/dL [facility] Comment:Critical value for t est(s): MAGS Results called to and readback by: SOLOMON Person calling: [facility] Date: 01/13/25Time: 1721 01/13/2025 1:19 PM EDT 01/13/2025 3:55 PM EDT us Generic External Data Provider LAB BLOOD ORDERAB LES Final Result [facility] [address] [place] [phone] * Ferritin (01/13/2025 1:19 PM EDT) Ferritin 14 10 - 250 ng/mL [facility] Blood Venous blood specimen / Unknown 01/13/2025 1:19 PM EDT 01/13/2025 3:55 PM EDT us Anabelle Obrien LABORATORY DIRECTOR LAB BLOOD ORDERABLES Final Res ult Performing Organization Address City/[facility]/ZIP Co de Phone Number [facility] [address] [place] [phone] * Lipid Panel, Standard (01/13/2025 1:19 PM EDT) Triglycerides 130 <150 mg/dL [facility] Comment:Desirable Triglyceri de: less than 150 mg/dLBorderline High Triglyceride 150-199 mg/dLHigh Triglyceride: 200-499 mg/dLVery High Triglyceride: greater than or equal to 5OO mg/dL Cholesterol 136 <200 mg/dL [facility] Comment:Desirable Cholestero l: less than 200 mg/dLBorderline High Cholesterol: 200-239 mg/dLHigh Cholesterol: greater than 239 mg/dL LDL Cholesterol Calculated 58 <100 mg/dL [facility] Comment:Desirable LDL: less than 100 mg/dLNear Optimal/Above Optimal LDL: 110- 129 mg/dLBorderline High LDL: 130-159 mg/dLHigh LDL: 160-189 mg/dLVery High LDL: greater than or equal to 190 mg/dL HDL Cholesterol 52 >40 mg/dL [facility] Comment:Desirable HDL: great er than 40 mg/dL Note: This HDL assay may give artificially low results in patients with liver disease. Blood Venous blood specimen / Unknown 01/13/2025 1:19 PM EDT 01/13/2025 3:55 PM EDT us Anabelle Phalen LABORATORY DIRECTOR LAB BLOOD ORDERABLES Final Res ult Performing Organization Address City/[facility]/ZIP Co de Phone Number [facility] [address] [place] [phone] * Electrolyte Panel (01/13/2025 1:19 PM EDT) Sodium 138 135 - 145 mmol/L [facility] Potassium 4.5 3.3 - 5.1 mmol/L [facility] Chloride 102 96 - 108 mmol/L [facility] Carbon Dioxide 27 22 - 29 mmol/L [facility] Anion Gap 14 12 - 20 [facility] 01/13/2025 1:19 PM EDT 01/13/2025 3:55 PM EDT Generic External Data Provider LAB BLOOD ORDERAB LES Final Result Performing Organization Address [facility] Co de Phone Number [facility] [address] [place] [phone] * Transthoracic echo (TTE) complete (12/27/2024 12:01 PM EDT) Historical Provider CV ECHO PROCEDURES Final Result * Hm Colonoscopy (06/13/2024 4:01 PM EST) Historical Provider HEALTH MAINTENANCE Final Result * Hepatitis C Viral RNA, Quantitative, Real-Time PCR (04/23/2023 9:05 AM EDT) Hepatitis C Viral Load <15 NOT DETECTED NOT DETECTED IU/mL [facility] HCV Log PCR <1.18 NOT DETECTED NOT DETECTED Log IU/mL [facility] Comment:This test was perfor med using Real-Time Polymerase ChainReaction.Reportable Range: 15 IU/mL to 100,000,000 IU/mL(1.18 Log IU/mL to 8.00 Log IU/mL).The analytical performance characteristics of thisassay have been determined by [employer].The modifications have not been cleared or approved bythe FDA. This assay has been validated pursuant to theCLIA regulations and is used for clinical purposes.For more information on this test, go to:http://education.NPTV/faq/RAH83m3(This link is being provided for informational/educational purposes only.)THIS TEST WAS PERFORMED AT:[employer] [place] [id number] COLLAZO MD Blood 04/23/2023 9:05 AM EDT 04/23/2023 11:11 AM EDT us Anabelle Obrien LABORATORY DIRECTOR LAB BLOOD ORDERABLES Final Res ult [facility] [address] [place] [phone] from Last 3 Months or Most Recently Relevant to Health Maintenance Insurance [address] [place] [id number] [facility] DETENTION OPTIONS (HMO D-SNP) [facility] STANDARD Care Teams Hoof Trimmer Relationship Specialty Start Date End Date Anabelle Obrien FNP [address] [place] [address] PCP - General Family Medicine 06/02/22 Orlando Perkins MD [address] [place] [address] Cardiology 07/14/24 Pardeep Floyd [address] [place] [address] Pulmonary Disease 07/14/24 Beau Sterling MD [address] [place] [address] Nephrology 07/14/24 Nora Valdez [address] 3rd [place] [address] Gastroenterology 07/14/24 Lea Saavedra, HiroD [address] [place] [address] Pharmacist Pharmacy 03/01/25
--- OUTSIDE RECORDS SUMMARY | 2025-03-13 13:59 | XMS_ITS | Encounter Summary ---
Author Organization [employer] Address [address] [facility] 7t [place] [address] Care Team Providers Care Emergency Veterinary Technician Name Role Phone Anabelle Obrien Primary Care Provider Orlando Perkins MD Unavailable Pardeep Floyd Unavailable Beau Sterling MD Unavailable Nora Valdez Unavailable Lea Saavedra PharmD Unavailable [phone] Encounter Details Date Type Department Care Team (Late st Contact Info) Description 06/08/2023 Orders Only [facility] MED & PEDS [address] [place], [place] [phone] Anabelle Obrien FNP [address] [place], [place] [phone] Hypomagnesemia (Primary Dx) Social History Tobacco Use [...] Description 04/07/2025 11:00 AM EDT Medication Management [facility] MED & PEDS [address] [place] [address] Lea Saavedra PharmD [address] [place] [address] documented as of this encounter Procedures Procedure Name Priority Date/Time Associated Diagnosis Comments MAGNESIUM Routine 07/14/2023 11:57 AM EST Hypomagnesemia documented in this encounter Results * (ABNORMAL) Magnesium (07/14/2023 11:57 AM EST) Magnesium 1.2(LL) 1.6 - 2.6 mg/dL [facility] Comment:Critical value for t est(s): MAGS Results called to and readback by: YUKI Singh Person calling: [facility] Date: 07/14/23 Time:1330 Blood Venous blood specimen / Unknown 07/14/2023 11:57 AM EST 07/14/2023 12:54 PM EST us Anabelle SURESH LAB BLOOD ORDERABLES Final Res ult [facility] [address] [place] [phone] [phone] documented in this encounter Visit Diagnoses Diagnosis Hypomagnesemia- Primary Disorders of magnesium metabolism documented in this encounter Additional Health Concerns Assessment Noted Time PHQ-9 Depression Total Score: 0 04/02/20 23 10:05 AM EDT documented as of this encounter Care Teams Emergency Veterinary Technician Relationship Specialty Start Date End Date Anabelle Obrien FNP [address] [place] [address] PCP - General Family Medicine 06/02/22 Orlando Perkins MD [address] [place] [address] Cardiology 07/14/24 Pardeep Floyd [address] [place] [address] Pulmonary Disease 07/14/24 Beau Sterling MD [address] [place] [address] Nephrology 07/14/24 Nora Valdez [address]rd [place] [address] Gastroenterology 07/14/24 Lea Saavedra PharmD [address] [place] [address] Pharmacist Pharmacy 03/01/25 documented as of this encounter
--- OUTSIDE RECORDS SUMMARY | 2025-03-13 13:59 | XMS_ITS | Clinical Summary ---
Author Organization [facility] Address [address] [place] [address] Phone Care Team Providers Care Exit Booth Agent Name Role Phone Anabelle Obrien RN Primary [...] 10/06/2023 COPD (chronic obstructive pu lmonary disease) ([facility] V24, [facility] V28) 10/06/2023 Disorder of intervertebral disc of lumbar spine 10/06/2023 Hyperlipidemia 10/06/2023 Hypertension 10/06/2023 Lumbar radiculopathy 10/06/2023 Mild anxiety 10/06/2023 Osteoporosis 10/06/2023 Paroxysmal atrial fibrillation ([facility] V24, [facility] V28) 10/06/2023 Hypomagnesemia 10/06/2023 Peripheral vascular disorder ([facility] V24) 10/05 Urinary incontinence 10/06/2023 Pleural effusion on left 05/12/2023 Resolved Problems Problem Noted Date Diagnosed Date Resolved Date Adenocarcinoma of left lung ([facility] V24, [facility] V28) 10/06/2023 09/15/2024 Nicotine dependence 10/06/2023 09/16/19 25 Surgical History Surgery Date Site/Laterality Comments HYSTERECTOMY N/A PROCEDURE: HISTORICAL HYSTERECTOMY COLONOSCOPY N/A PROCEDURE: HISTORICAL COLONOSCOPY OTHER SURGICAL HISTORY N/A PROCEDURE: MS SLING OPERATION STRESS INCONTINENCE OTHER SURGICAL HISTORY N/A PROCEDURE: MS OSTECTOMY COMPLETE OTHER METATARSAL HEAD OTHER SURGICAL HISTORY 03/18/2023 PROCEDURE: MS THORACOSCOPY W/LOBECTOMY SINGLE LOBE Medical History Medical History Date Comments Anxiety disorder DX:Anxiety diso rder COPD (chronic obstructive pu lmonary disease) ([facility] V24, [facility] V28) DX:COPD (chronic o bstructive pulmonary disease) ([facility]) Dyslipidemia DX:Dyslipidemia HTN (hypertension) DX:HTN (hyper tension) PVD (peripheral vascular dis ease) ([facility] V24) DX:PVD (peripheral vascular disease) ([facility]) Tobacco abuse DX:Tobacco abuse History of uterine cancer DX:His tory of uterine cancer Type 2 diabetes mellitus wit hout complications ([facility] V24, [facility] V28) DX:Type 2 bianca betes mellitus without complications ([facility]) Urinary incontinence DX:Urinary incontinence Osteoporosis DX:Osteoporosis Nicotine [...] 09/15/2024 2:51 PM EDT Plan of Treatment Upcoming Encounters Date Type Department Care Team (Late st Contact Info) Description 03/24/2025 3:30 PM EDT Appointment [facility] CT Scan [address] [place] [address] 03/29/2025 9:15 AM EDT Office Visit Thoracic Surgery - [place] [address] [facility] [address] [place] [address] Syd Deng PA [address] [place] [phone] Health Maintenance Due Date Last Done Comments [...] 07/31/2023 Hypertension/CHF/CAD Annual BMP Blood Test 01/29/2024 Depression Screening 07/06/2024 DTaP,Tdap,and Td Vaccines (2 - Td or Tdap) 08/10/2024 08/10/2014 Diabetes: Annual Urine Albumin-Creatinine Ratio (uACR) 09/06/2024 Diabetes: Blood Sugar Contro l Test (HGBA1C) 01/08/2025 07/11/2024 COVID-19 Vaccine (4 - 2024-2 6 season) 2025 09/09/2021, 11/28/2020, 10/31/2020 Influenza Vaccine (#1) 2025 08/10/2014 Cholesterol Screening [...] patient's age to complete this topic Insurance [employer] MEDICARE Member Subscriber Plan / Payer (Ef fective 2022-Present) Name:Dyan Vera Relation to Subscriber:Self Name:Tete Segovia Payer ID:[id number] Group ID:[id number] Type:Not on file Address: [place] [address] [address] [address] Care Teams Exit Booth Agent Relationship Specialty Start Date End Date Anabelle Obrien RN [address] [facility] [address] [place] [address] PCP - General 11/07/22
--- OUTSIDE RECORDS SUMMARY | 2025-03-13 13:59 | XMS_ITS | Encounter Summary ---
Author Organization [employer] Address [address] [facility] 7t [place] [address] Care Team Providers Care Vocational Rehab Consultant Name Role Phone Anabelle Obrien Primary Care Provider [phone] Orlando Perkins MD Unavailable [phone] Pardeep Floyd Unavailable Beau Sterling MD Unavailable Nora Valdez Unavailable Lea Saavedra PharmD Unavailable Reason for Visit * Reason Comments Med Refill Encounter Details Date Type Department Care Team (Late st Contact Info) Description 01/18/2024 Refill [facility] MED[facility] [address] [place] [address] Anabelle Obrien FNP [address] [place], [place] [phone] Type 2 diabetes mellitus with hyperglycemia, without long-term current use of insulin ([facility]) (Primary Dx) Social History Tobacco Use Types [...] the past 12 months, has t he [employer], gas, oil or water company threatened to [...] [facility] MED & PED[facility] [address] [place] [address] Lea Saavedra PharmD [address] [place] [address] documented as of this encounter Visit Diagnoses Diagnosis Type 2 diabetes mellitus with hyperglycemia, without long-term current use of insulin ([facility])- Primary documented in this encounter Additional Health Concerns Assessment Noted Time PHQ-9 Depression Total Score: 0 04/02/20 23 10:05 AM EDT documented as of this encounter Care Teams Vocational Rehab Consultant Relationship Specialty Start Date End Date Anabelle Obrien FNP [address] [place] [address] PCP - General Family Medicine 06/02/22 Orlando Perkins MD [address] [place] [address] Cardiology 07/14/24 Pardeep Floyd [address] [place] [address] Pulmonary Disease 07/14/24 Beau Sterling MD [address] [place] [address] Nephrology 07/14/24 Nora Valdez [address] 3rd [place] [address] Gastroenterology 07/14/24 Lea Saavedra PharmD [address] [place] [address] Pharmacist Pharmacy 03/01/25 documented as of this encounter
--- OUTSIDE RECORDS SUMMARY | 2025-03-13 13:59 | XMS_ITS | Encounter Summary ---
Author Organization [employer] Address [address] [facility] 7t [place] [address] Care Team Providers Care Vamp Cut Out Worker Name Role Phone Anabelle Obrien PRODUCT LEAD Primary Care Provider [phone] Orlando Perkins MD Unavailable [phone] Pardeep Floyd Unavailable Beau Sterling MD Unavailable Nora Valdez Unavailable Lea Saavedra PharmD Unavailable [phone] Encounter Details Date Type Department Care Team (Late st Contact Info) Description 12/28/2024 Orders Only [facility] [address] [place], [place] [phone] Provider, MD [place] Social History Tobacco Use [...] Description 04/07/2025 11:00 AM EDT Medication Management [facility] MED & PEDS [address] [place] [address] Lea Saavedra, PharmD [address] [place] [address] documented as of this encounter Procedures Procedure Name Priority Date/Time Associated Diagnosis Comments TRANSTHORACIC ECHO (TTE) COMPLETE Routine 12/27/2024 12:01 PM EDT documented in this encounter Results * Transthoracic echo (TTE) complete (12/27/2024 12:01 PM EDT) us Historical Provider CV ECHO PROCEDURES Final Result documented in this encounter Visit Diagnoses Not on filedocumented in this encounter Additional Health Concerns Assessment Noted Time PHQ-9 Depression Total Score: 4 07/14/19 25 4:51 PM EST documented as of this encounter Care Teams Vamp Cut Out Worker Relationship Specialty Start Date End Date Anabelle Obrien FNP [address] [place] [address] PCP - General Family Medicine 06/02/22 Orlando Perkins MD [address] [place] [address] Cardiology 07/14/24 Pardeep Floyd [address] [place] [address] Pulmonary Disease 07/14/24 Beau Sterling MD [address] [place] [address] Nephrology 07/14/24 Nora Valdez [address] [facility] 3rd [place] [address] Gastroenterology 07/14/24 Lea Saavedra PharmD [address] [place] [address] Pharmacist Pharmacy 03/01/25 documented as of this encounter
--- OUTSIDE RECORDS SUMMARY | 2025-03-13 13:59 | XMS_ITS | Encounter Summary ---
Author Organization [employer] Address [address] [facility] 7t [place] [address] Care Team Providers Care Automatic Teller Machine Servicer Name Role Phone Anabelle Obrien Primary Care Provider [phone] Orlando Perkins MD Unavailable Pardeep Floyd Unavailable Beau Sterling MD Unavailable Nora Valdez Unavailable Lea Saavedra PharmD Unavailable Reason for Visit * Reason Comments Med Refill Encounter Details Date Type Department Care Team ([facility] st Contact Info) Description 08/28/2024 Refill [facility] CH[facility] MED & PEDS [address] [place], [place] [phone] Anabelle Obrien FNP [address] [place], [place] [phone] Routine health maintenance Social History Tobacco Use [...] Description 04/07/2025 11:00 AM EDT Medication Management [facility] MED & PEDS [address] [place] [address] Lea Saavedra, HiroD [address] [place] [address] documented as of this encounter Visit Diagnoses Diagnosis Routine health maintenance Unspecified examination documented in this encounter Additional Health Concerns Assessment Noted Time PHQ-9 Depression Total Score: 4 07/14/19 25 4:51 PM EST documented as of this encounter Care Teams Automatic Teller Machine Servicer Relationship Specialty Start Date End Date Anabelle Obrien FNP [address] [place] [address] PCP - General Family Medicine 06/02/22 Orlando Perkins MD [address] [place] [address] Cardiology 07/14/24 Pardeep Floyd [address] [place] [address] Pulmonary Disease 07/14/24 Beau Sterling MD [address] [place] [address] Nephrology 07/14/24 Nora Valdez [address]rd [place] [address] Gastroenterology 07/14/24 Lea Saavedra PharmD [address] [place] [address] Pharmacist Pharmacy 03/01/25 documented as of this encounter
--- OUTSIDE RECORDS SUMMARY | 2025-03-13 13:59 | XMS_ITS | Encounter Summary ---
Author Organization [employer] Address 75 [facility] 7t [place] [address] Care Team Providers Care General Production Manager Name Role Phone Anabelle Obrien KEG HEADER Primary Care Provider [phone] Orlando Perkins MD Unavailable [phone] Pardeep Floyd Unavailable Beau Sterling MD Unavailable Nora Valdez Unavailable Lea Saavedra PharmD Unavailable [phone] Encounter Details Date Type Department Care Team (Late st Contact Info) Description 11/03/2022 Orders Only [facility] CHC MED & PEDS [address] [place] [address] Lilibeth Dennis LPN Social History Tobacco Use [...] Description 04/07/2025 11:00 AM EDT Medication Management [facility] CHC MED & PEDS [address] [place] [address] Lea Saavedra PharmD [address] [place] [address] documented as of this encounter Visit Diagnoses Not on filedocumented in this encounter Care Teams General Production Manager Relationship Specialty Start Date End Date Anabelle Obrien FNP [address] [place] [address] PCP - General Family Medicine 06/02/22 Orlando Perkins MD [address] [place] [address] Cardiology 07/14/24 Pardeep Floyd [address] [place] [address] Pulmonary Disease 07/14/24 Beau Sterling MD [address] [place] [address] Nephrology 07/14/24 Nora Valdez [address] 3rd [place] [address] Gastroenterology 07/14/24 Lea Saavedra, Adelfo [address] [place] [address] Pharmacist Pharmacy 03/01/25 documented as of this encounter
--- OUTSIDE RECORDS SUMMARY | 2025-03-13 13:59 | XMS_ITS | Encounter Summary ---
Author Organization [employer] Address 75 [facility] 7t [place] [address] Care Team Providers Care Bearing Press Machine Operator Name Role Phone Anabelle Obrien PLATE FINISHER Primary Care Provider Orlando Perkins MD Unavailable Pardeep Floyd Unavailable Beau Sterling MD Unavailable Nora Valdez Unavailable Lea Saavedra PharmD Unavailable Reason for Visit * Reason Onset Date Comments chart prep 03/10/2025 Encounter Details Date Type Department Care Team ([facility] st Contact Info) Description 03/10/[address] [facility] CHC MED & PEDS [address] [place] [address] Anabelle Obrien FNP 505 [place] [address] chart prep Social History Tobacco Use Types Packs/Day Years [...] the past 12 months, has t he [employer], gas, oil or water company threatened to [...] encounter Miscellaneous Notes * Telephone Encounter - Autumn Driscoll [place] - 03/10/2025 2:18 PM EDT Chart Prep Labs: done Images: done Referrals: complete Vaccines due: Covid, Flu, PCV20, Tdap, RSV, and Zoster Screenings: eye exam and foot exam Overdue care gaps: Glucose and SDOH documented in this encounter Plan of Treatment Upcoming Encounters Date Type Department Care Team (Late st Contact Info) Description 04/07/2025 11:00 AM EDT Medication Management [facility] MED & PEDS 505 [facility] [place] [address] Lea Saavedra, PharmD [address] [place] [address] documented as of this encounter Visit Diagnoses Not on filedocumented in this encounter Additional Health Concerns Assessment Noted Time PHQ-9 Depression Total Score: 4 07/14/19 25 4:51 PM EST documented as of this encounter Care Teams Bearing Press Machine Operator Relationship Specialty Start Date End Date Anabelle Obrien FNP [address] [place] [address] PCP - General Family Medicine 06/02/22 Orlando Perkins MD [address] [place] [address] Cardiology 07/14/24 Pardeep Floyd [address] [place] [address] Pulmonary Disease 07/14/24 Beau Sterling MD [address] [place] [address] Nephrology 07/14/24 Nora Valdez [address] 3rd [place] [address] Gastroenterology 07/14/24 Lea Saavedra PharmD [address] [place] [address] Pharmacist Pharmacy 03/01/25 documented as of this encounter
--- OUTSIDE RECORDS SUMMARY | 2025-03-13 13:59 | XMS_ITS | Encounter Summary ---
Author Organization [employer] Address 75 [facility] 7t [place] [address] Care Team Providers Care Copy Machine Operator Name Role Phone Anabelle Obrien TECHNICAL INTERNSHIP Primary Care Provider [phone] Olrando Perkins MD Unavailable [phone] Pardeep Floyd Unavailable Beau Sterling MD Unavailable Nora Valdez Unavailable Lea Saavedra PharmD Unavailable [phone] Encounter Details Date Type Department Care Team (Latest Contact Info) Description 03/13/2025 Travel Social History Tobacco Use Types Packs/Day [...] your housing situation today? I have jennifer sing 03/13/[address] you li [...] Upcoming Encounters Date Type Department Care Team ([facility] st Contact Info) Description 04/07/2025 11:00 AM EDT Medication Management [facility] MED & PEDS [address] [place] [address] Lea Saavedra PharmD [address] [place] [address] documented as of this encounter Visit Diagnoses Not on filedocumented in this encounter Additional Health Concerns Assessment Noted Time PHQ-9 Depression Total Score: 4 07/14/19 25 4:51 PM EST documented as of this encounter Care Teams Copy Machine Operator Relationship Specialty Start Date End Date Anabelle Obrien FNP [address] [place] [address] PCP - General Family Medicine 06/02/22 Orlando Perkins MD [address] [place] [address] Cardiology 07/14/24 Pardeep Floyd 5 [place] [address] Pulmonary Disease 07/14/24 Beau Sterling MD [address] [place] [address] Nephrology 07/14/24 Nora Valdez [address] 3rd [place] [address] Gastroenterology 07/14/24 Lea Saavedra PharmD [address] [place] [address] Pharmacist Pharmacy 03/01/25 documented as of this encounter
--- OUTSIDE RECORDS SUMMARY | 2025-03-13 13:59 | XMS_ITS | Encounter Summary ---
Author Organization [employer] Address 75 [facility] 7t [place] [address] Care Team Providers Care Textile Machine Maintenance Mechanic Name Role Phone Anabelle Obrien Primary Care Provider Orlando Perkins MD Unavailable [phone] Pardeep Floyd Unavailable Beau Sterling MD Unavailable Nora Valdez Unavailable Lea Saavedra PharmD Unavailable [phone] Encounter Details Date Type Department Care Team (Late st Contact Info) Description 08/28/2022 Orders Only [facility] MED & PEDS [address] [place], [place] [phone] Lilibeth Dennis LPN Social History Tobacco Use [...] Description 04/07/2025 11:00 AM EDT Medication Management [facility] MED & PEDS [address] [place], [place] [phone] Lea Saavedra, PharmD 230 [place], [place] [phone] documented as of this encounter Visit Diagnoses Not on filedocumented in this encounter Care Teams Textile Machine Maintenance Mechanic Relationship Specialty Start Date End Date Anabelle Obrien FNP [address] [place] [address] PCP - General Family Medicine 06/02/22 Orlando Perkins MD [address] [place] [address] Cardiology 07/14/24 Pardeep Floyd [address] [place] [address] Pulmonary Disease 07/14/24 Beau Sterling MD [address] [place] [address] Nephrology 07/14/24 Nora Valdez [address] 3rd [place] [address] Gastroenterology 07/14/24 Lea Saavedra PharmD [address] [place] [address] Pharmacist Pharmacy 03/01/25 documented as of this encounter
[2025-03-13 14:56] LABS: MANUAL DIFF FLAG NO
[2025-03-13 15:21] LABS: Hematocrit 33.9 % (37.0-47.0); Hemoglobin 10.6 g/dl (12.0-16.0); Imm Gran Abs Auto 0.04 X10*3/uL (0.00-0.03); Imm Gran Pct Auto 0.4 % (0.0-0.4); Lymphocytes Absolute Auto 1.7 X10*3/uL (1.2-4.9); Mean Corpuscular HGB Conc 31.3 g/dl (31.0-35.0); Mean Corpuscular Hemoglobin 25.5 pg (27.0-33.0); Mean Corpuscular Volume 81.7 fL (80.0-98.0); NRBC Abs Auto 0.000 X10*3/uL (0.0-0.012); NRBC Pct Auto 0.0 /100WBC (0.0-0.2); Platelet Count 285 X10*3/uL (160-400); Red Blood Count 4.15 X10*6/uL (4.20-5.50); White Blood Count 9.5 X10*3/uL (4.8-10.8)
[2025-03-13 16:01] LABS: Anion Gap 15 (12-20); Blood Urea Nitrogen 29 mg/dL (9-16); Carbon Dioxide 27 mmol/L (22-29); Chloride 103 mmol/L (96-108); Estimated Glomerular Filt Rate 49; Ferritin 15 ng/mL (10-250); Iron 55 mcg/dL (30-160); Magnesium 1.5 mg/dL (1.6-2.6); Percent Iron Saturation 18 % (15-50); Potassium 4.9 mmol/L (3.3-5.1); Sodium 140 mmol/L (135-145); Total Iron Binding Capacity 298 mcg/dL (228-428); Unsaturated Iron Binding 243 ug/dL
[2025-03-13 16:35] LABS: Folate 6.6 ng/mL (> or = 4.0); Vitamin B12 720 pg/mL (200-900)
== END 2025-03-13 11:18 | disposition home or self-care (01) ==
LOC: HO.CHCLDS 11:17
PROVIDERS: PCP Registered Nurse; Referring Provider Internal Medicine Nephrology; Visit Provider Registered Nurse
DX: I12.9 Hypertensive chronic kidney disease with stage 1 through stage 4 chronic kidney disease, or unspecified chronic kidney disease (principal); N18.31 Chronic kidney disease, stage 3a; D50.9 Iron deficiency anemia, unspecified; E83.42 Hypomagnesemia
CPT/HCPCS: 36415; 80051; 82565; 82607; 82728; 82746; 83540; 83735; 84520; 85025

== ENCOUNTER 2025-03-23 12:01 | Outpatient (REF) | payer OTHER, SELFPAY ==
[2025-03-23 18:36] LABS: Total Protein Urine Random < 7 mg/dL (<12)
== END 2025-03-23 12:02 | disposition home or self-care (01) ==
LOC: HO.HKASLDS 12:01
PROVIDERS: PCP Registered Nurse; Visit Provider Internal Medicine Nephrology
DX: I12.9 Hypertensive chronic kidney disease with stage 1 through stage 4 chronic kidney disease, or unspecified chronic kidney disease (principal); N18.31 Chronic kidney disease, stage 3a; E83.42 Hypomagnesemia; R80.8 Other proteinuria; Z87.891 Personal history of nicotine dependence
CPT/HCPCS: 82570; 84156; 99212

== ENCOUNTER 2025-03-23 12:01 | Outpatient (AMB) | payer OTHER, SELFPAY ==
--- NOTE | 2025-03-23 12:20 | HO.NEPHOV_ITS ---
Vital Signs 03/23/25 12:23 Height 5 ft 4 in Weight 173 lb 4 oz BMI 29.7 BP 110/60 Blood Pressure Location Lt brachial Position Sitting Pulse 68 Pulse Source Pulse Oximeter Pulse Oximetry (%) 98 Oxygen Delivery Method Room Air Intake Visit Reasons: 2mnth w labs-Conf Treating Plant Supervisor Required: Yes Treating Plant Supervisor Language: Child Life Assistant Services: Treating Plant Supervisor Offered & Declined ([facility] fish net stringer services refused ) Accompanied by: Daughter Allergies ciprofloxacin (From CIPRO) Allergy (Severe, Verified 03/23/25 12:22) ANAPHYLAXIS HPI Comments Details: Tete was seen in follow up for hypomagnesemia. She has longstanding history of hypertension and diabetes mellitus. She denies nausea, vomiting or diarrhea. She has no history of calcium disorders. She has not been taking any diuretics. She has history of lung cancer and had undergone surgery. She never received any chemotherapy. She has no history of nephrocalcinosis. She has no family history of hypomagnesemia. She has history of excessive alcohol intake for a long time but currently does not drink at all. Her blood pressure has been at goal. She does not have any chest pain, shortness of breath, palpitation, syncope or history of cardiac dysfunction. She denied any active complaints during the time of this office visit [facility] Medical History (Updated 01/19/25 @ 11:26 by Beau Sterling MD) History of lung cancer Personal history of nicotine dependence CAD (coronary artery disease) Supplemental oxygen dependent Hx of cancer of uterus Salmonella Hypoxemia History of uterine cancer Type 2 diabetes mellitus, with long-term current use of insulin COPD (chronic obstructive pulmonary disease) PVD (peripheral vascular disease) Osteoporosis Family history of colon cancer Anxiety Dyslipidemia HTN (hypertension) Surgical History Hx of surgical procedure (07/28/24) History of lung surgery History of bunionectomy of left great toe History of colonoscopy (06/13/24) History of pubovaginal sling History of hysterectomy Family History Brother Colon cancer Social History Household Members: Family Housing: House Are you a primary acute care registered nurse to a significant other at home: No Do you presently have visiting nurse or other home services: No Alcohol intake: never Patient Tobacco Use Status: Former Tobacco user Tobacco use type: Cigarette Cigarettes Per Day: 15 service: No Review of Systems Const All systems reviewed & are unremarkable except as noted in HPI and below Physical Exam Vital Signs: Last Vital Signs Pulse 68 03/23/25 12:23 BP 110/60 03/23/25 12:23 Pulse Ox 98 03/23/25 12:23 Oxygen Delivery Method Room Air 03/23/25 12:23 BMI result Body Mass Index 29.7 Const General: comfortable and no acute distress Orientation/consciousness: patient oriented x3 HEENT Head: Yes normocephalic Mouth: Normal oral and palatal mucosa present Eyes EOM: EOMs intact bilaterally Neck Neck: Yes supple Resp Auscultation: clear to auscultation bilaterally Cardio Jugular venous distension: no JVD Rate: regular rate GI Palpation (GI): Soft to palpation Auscultation: normal bowel sounds General: Yes no CVA tenderness Back/Spine/Pelvis Back: no CVA tenderness Skin General skin exam: no rashes or lesions noted Neuro General: patient oriented x3 and moves all extremities Extrem General: Yes no pedal edema Results Reviewed Nephrology Results: Hgb, (12.0-16.0) 10.6 g/dl L 03/13/25 WBC, (4.8-10.8) 9.5 X10*3/uL 03/13/25 Plt Count, (160-400) 285 X10*3/uL 03/13/25 Sodium, (135-145) 140 mmol/L 03/13/25 Potassium, (3.3-5.1) 4.9 mmol/L 03/13/25 Chloride, (96-108) 103 mmol/L 03/13/25 Carbon Dioxide, (22-29) 27 mmol/L 03/13/25 BUN, (9-16) 29 mg/dL H 03/13/25 Creatinine, (0.5-1.4) 1.11 mg/dL 03/13/25 Urine Creatinine 33.63 mg/dL 03/23/25 Protein/Creatinin Ratio TNP 03/23/25 Assessment & Plan Assessment & Plan (1) HTN (hypertension): Code(s): I10 - Essential (primary) hypertension Category: Medical Qualifiers: Hypertension type: primary hypertension Qualified Code(s): I10 - Essential (primary) hypertension (2) Hypomagnesemia: Code(s): E83.42 - Hypomagnesemia Category: Medical (3) Proteinuria: Code(s): R80.9 - Proteinuria, unspecified Category: Medical Qualifiers: Proteinuria type: other Qualified Code(s): R80.8 - Other proteinuria (4) CKD stage 3a, GFR 45-59 ml/min: Code(s): N18.31 - Chronic kidney disease, stage 3a Category: Medical Plan Tete most likely has 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 Her renal functions are stable. She also has been taking proton pump inhibitor in the past. I increased her magnesium replacement. Her blood pressure has been at goal on current medication regimen. Her serum potassium had been normal. I shall consider starting her on Jardiance with time soon. She may be a candidate for amiloride. I did not make any other medication changes today but ordered follow up lab work. All her and her daughter's questions were answered Orders: Orders Magnesium 3 Months E83.42 - Hypomagnesemia, I10 - Essential (primary) hypertension, N18.31 - Chronic kidney disease, stage 3a, R80.8 - Other proteinuria Creatinine 3 Months E83.42 - Hypomagnesemia, I10 - Essential (primary) hypertension, N18.31 - Chronic kidney disease, stage 3a, R80.8 - Other proteinuria Electrolytes 3 Months E83.42 - Hypomagnesemia, I10 - Essential (primary) hypertension, N18.31 - Chronic kidney disease, stage 3a, R80.8 - Other proteinuria Blood Urea Nitrogen 3 Months E83.42 - Hypomagnesemia, I10 - Essential (primary) hypertension, N18.31 - Chronic kidney disease, stage 3a, R80.8 - Other prote inuria Protein Creatinine Ratio, Ur 3 Months E83.42 - Hypomagnesemia, I10 - Essential (primary) hypertension, N18.31 - Chronic kidney disease, stage 3a, R80.8 - Other proteinuria Medications: Changed From magnesium 400 mg PO BID To magnesium 400 mg (2 x 200 mg) PO BID 120 tabs 4RF 30 days Coding Level of Care Code Est Pt Level 4 (15424) Diagnoses Primary hypertension I10 Hypertension type: primary hypertension Hypomagnesemia E83.42 Other proteinuria R80.8 Proteinuria type: other CKD stage 3a, GFR 45-59 ml/min N18.31
[2025-03-23 12:23] VITALS: BP 110/60; PULSE 68; O2SAT 98; BMI 29.7
--- OUTSIDE RECORDS SUMMARY | 2025-03-23 14:18 | XMS_ITS | Encounter Summary ---
Author Organization [employer] Address 75 [facility] 7t [place] [address] Care Team Providers Care Paper Reeler Name Role Phone Anabelle Obrien Primary Care Provider Orlando Perkins MD Unavailable [phone] Pardeep Floyd Unavailable Beau Sterling MD Unavailable Nora Valdez Unavailable Lea Saavedra PharmD Unavailable Encounter Details Date Type Department Care Team (Late st Contact Info) Description 06/08/2023 Orders Only [facility] CHC MED & PEDS [address] [place], [place] [phone] Anabelle Obrien FNP [address] [place], [place] [phone] Hypomagnesemia (Primary Dx) Social History Tobacco Use [...] 04/07/2025 11:00 AM EDT Medication Management [facility] MED & PEDS [address] [place] [address] Lea Saavedra, PharmD [address] [place] [address] 06/09/2025 1:00 PM EST Office Visit [facility] OPTOMETRY [address] [place] [address] Katarina Shields, OD [address] [place] [address] documented as of this encounter Procedures Procedure Name Priority Date/Time Associated Diagnosis Comments MAGNESIUM Routine 07/14/2023 11:57 AM EST Hypomagnesemia documented in this encounter Results * (ABNORMAL) Magnesium (07/14/2023 11:57 AM EST) Magnesium 1.2(LL) 1.6 - 2.6 mg/dL [facility] Comment:Critical value for t est(s): MAGS Results called to and readback by: YUKI G Person calling: LEAT Date: 07/14/23 Time:1330 Blood Venous blood specimen / Unknown 07/14/2023 11:57 AM EST 07/14/2023 12:54 PM EST us Anabelle SURESH LAB BLOOD ORDERABLES Final Res ult [facility] [address] [place] [address] [phone] documented in this encounter Visit Diagnoses Diagnosis Hypomagnesemia- Primary Disorders of magnesium metabolism documented in this encounter Additional Health Concerns Assessment Noted Time PHQ-9 Depression Total Score: 0 04/02/20 23 10:05 AM EDT documented as of this encounter Care Teams Paper Reeler Relationship Specialty Start Date End Date Anabelle Obrien FNP [address] [place] [address] PCP - General Family Medicine 06/02/22 Orlando Perkins MD [address] [place] [address] Cardiology 07/14/24 Pardeep Floyd [address] [place] [address] Pulmonary Disease 07/14/24 Beau Sterling MD [address] [place] [address] Nephrology 07/14/24 Nora Valdez [address] 3rd [place] [address] Gastroenterology 07/14/24 Lea Saavedra PharmD [address] [place] [address] Pharmacist Pharmacy 03/01/25 documented as of this encounter
--- OUTSIDE RECORDS SUMMARY | 2025-03-23 14:18 | XMS_ITS | Encounter Summary ---
Author Organization [employer] Address 75 [facility] 7t [place] [address] Care Team Providers Care Drive Thru Order Taker Name Role Phone Anabelle Obrien DIRECTOR OF ENTERPRISE ARCHITECTURE Primary Care Provider [phone] Orlando Perkins MD Unavailable [phone] Pardeep Floyd Unavailable Beau Sterling MD Unavailable Nora Valdez Unavailable Lea Saavedra PharmD Unavailable [phone] Encounter Details Date Type Department Care Team (Late st Contact Info) Description 05/21/2023 Abstract [facility] MEDICINE [address] [place], [place] [phone] Syl Robert Social History Tobacco Use Types [...] Description 04/07/2025 11:00 AM EDT Medication Management [facility] CHC MED & PEDS [address] [place] [address] Lea Saavedra, PharmD [address] [place] [address] 06/09/2025 1:00 PM EST Office Visit [facility] OPTOMETRY [address] [place] [address] Katarina Shields, OD [address] [place] [address] documented as of this encounter Procedures Procedure [...] documented as of this encounter Care Teams Drive Thru Order Taker Relationship Specialty Start Date End Date Anabelle Obrien FNP [address] [place] [address] PCP - General Family Medicine 06/02/22 Orlando Perkins MD [address] [place] [address] Cardiology 07/14/24 Pardeep Floyd [address] [place] [address] Pulmonary Disease 07/14/24 Beau Sterling MD [address] [place] [address] Nephrology 07/14/24 Nroa Valdez [address]rd [place] [address] Gastroenterology 07/14/24 Lea Saavedra PharmD [address] [place] [address] Pharmacist Pharmacy 03/01/25 documented as of this encounter
--- OUTSIDE RECORDS SUMMARY | 2025-03-23 14:18 | XMS_ITS | Encounter Summary ---
Author Organization [employer] Address 75 [facility] 7t [place] [address] Care Team Providers Care Lead Care Manager Name Role Phone Anabelle Obrien Primary Care Provider Orlando Perkins MD Unavailable Pardeep Floyd Unavailable Beau Sterling MD Unavailable Nora Valdez Unavailable Lea Saavedra PharmD Unavailable Encounter Details Date Type Department Care Team (Late st Contact Info) Description 01/20/2025 Results Follow-Up [facility] CHC MED & PEDS [address] [place], [place] [phone] Anabelle Obrien FNP [address] [place], [place] [phone] POCT HGB A1C, POCT Glucose, Ferritin, Additional [...] housing situation today? I have jennifergita kent 03/13/[address] you [...] Upcoming Encounters Date Type Department Care Team ([facility] st Contact Info) Description 04/07/2025 11:00 AM EDT Medication Management [facility] CHC MED & PEDS [address] [place] [address] Lea Saavedra, PharmD [address] [place] [address] 06/09/2025 1:00 PM EST Office Visit [facility] OPTOMETRY [address] [place] [address] Katarina Shields, OD [address] [place] [address] documented as of this encounter Visit Diagnoses Not on filedocumented in this encounter Additional Health Concerns Assessment Noted Time PHQ-9 Depression Total Score: 4 07/14/19 25 4:51 PM EST documented as of this encounter Care Teams Lead Care Manager Relationship Specialty Start Date End Date Anabelle Obrien FNP [address] [place] [address] PCP - General Family Medicine 06/02/22 Orlando Perkins MD [address] [place] [address] Cardiology 07/14/24 Pardeep Floyd [address] [place] [address] Pulmonary Disease 07/14/24 Beau Sterling MD [address] [place] [address] Nephrology 07/14/24 Nora Valdez [address] 3rd [place] [address] Gastroenterology 07/14/24 Lea Saavedra PharmD [address] [place] [address] Pharmacist Pharmacy 03/01/25 documented as of this encounter
--- OUTSIDE RECORDS SUMMARY | 2025-03-23 14:18 | XMS_ITS | Clinical Summary ---
Author Organization [facility] Address [address] [place] [address] Phone Care Team Providers Care High Reach Operator Name Role Phone Anabelle Obrien RN [...] 10/06/2023 COPD (chronic obstructive pu lmonary disease) ([facility] V24, [facility] V28) 10/06/2023 Disorder of intervertebral disc of lumbar spine 10/06/2023 Hyperlipidemia 10/06/2023 Hypertension 10/06/2023 Lumbar radiculopathy 10/06/2023 Mild anxiety 10/06/2023 Osteoporosis 10/06/2023 Paroxysmal atrial fibrillation ([facility] V24, [facility] V28) 10/06/2023 Hypomagnesemia 10/06/2023 Peripheral vascular disorder ([facility] V24) 10/05 Urinary incontinence 10/06/2023 Pleural effusion on left 05/12/2023 Resolved Problems Problem Noted Date Diagnosed Date Resolved Date Adenocarcinoma of left lung ([facility] V24, [facility] V28) 10/06/2023 09/15/2024 Nicotine dependence 10/06/2023 09/16/19 25 Surgical History Surgery Date Site/Laterality Comments HYSTERECTOMY N/A PROCEDURE: HISTORICAL HYSTERECTOMY COLONOSCOPY N/A PROCEDURE: HISTORICAL COLONOSCOPY OTHER SURGICAL HISTORY N/A PROCEDURE: [place] SLING OPERATION STRESS INCONTINENCE OTHER SURGICAL HISTORY N/A PROCEDURE: [place] OSTECTOMY COMPLETE OTHER METATARSAL HEAD OTHER SURGICAL HISTORY 03/18/2023 PROCEDURE: [place] THORACOSCOPY W/LOBECTOMY SINGLE LOBE Medical History Medical History Date Comments Anxiety disorder DX:Anxiety diso rder COPD (chronic obstructive pu lmonary disease) ([facility] V24, [facility] V28) DX:COPD (chronic o bstructive pulmonary disease) ([facility]) Dyslipidemia DX:Dyslipidemia HTN (hypertension) DX:HTN (hyper tension) PVD (peripheral vascular dis ease) ([facility] V24) DX:PVD (peripheral vascular disease) ([facility]) Tobacco abuse DX:Tobacco abuse History of uterine cancer DX:His tory of uterine cancer Type 2 diabetes mellitus wit hout complications ([facility] V24, [facility] V28) DX:Type 2 bianca betes mellitus without complications ([facility]) Urinary incontinence DX:Urinary incontinence Osteoporosis [...] Info) Description 03/24/2025 3:30 PM EDT Appointment [facility] CT Scan [address] [place] [address] 03/29/2025 9:15 AM EDT Office Visit Thoracic Surgery - [place] [address] [facility] [address] [place] [address] Syd Deng PA [address] [place] [phone] Health Maintenance Due Date Last Done [...] 2022-Present) Name:Dyan Vera Relation to Subscriber:Self Name:Tete Segovai Payer ID:[id number] Group ID:[id number] Type:Not on file Address: [place] [address] [address] [place] [id number] Care Teams High Reach Operator Relationship Specialty Start Date End Date Anabelle Obrien RN [address] [facility] [address] [place] [address] PCP - General 11/07/22
--- OUTSIDE RECORDS SUMMARY | 2025-03-23 14:18 | XMS_ITS | Encounter Summary ---
Author Organization [employer] Address [address] [facility] 7t [place] [address] Care Team Providers Care House Designer Name Role Phone Anabelle Obrien Primary Care Provider [phone] Orlando Perkins MD Unavailable Pardeep Floyd Unavailable Beau Sterling MD Unavailable Nora Valdez Unavailable Lea Saavedra PharmD Unavailable [phone] Reason for Visit * Reason Comments Med Refill Encounter Details Date Type Department Care Team (Late st Contact Info) Description 01/18/2024 Refill [facility] MEDICINE [address] [place] [address] Anabelle Obrien FNP [address] [place], [place] [id number] Type 2 diabetes mellitus with hyperglycemia, without long-term current use of insulin (CMS/[facility]) (Primary Dx) Social History Tobacco Use Types [...] the past 12 months, has t he [employer], gas, oil or water [employer] threatened to shut off services in your [...] Description 04/07/2025 11:00 AM EDT Medication Management [facility] CHC MED & PEDS [address] [place] [address] Lea Saavedra, HiroD [address] [place] [address] 06/09/2025 1:00 PM EST Office Visit [facility] OPTOMETRY [address] [place] [address] Katarina Shields, OD [address] [place] [address] documented as of this encounter Visit Diagnoses Diagnosis Type 2 diabetes mellitus with hyperglycemia, without long-term current use of insulin ([facility])- Primary documented in this encounter Additional Health Concerns Assessment Noted Time PHQ-9 Depression Total Score: 0 04/02/20 23 10:05 AM EDT documented as of this encounter Care Teams House Designer Relationship Specialty Start Date End Date Anabelle Obrien FNP [address] [place] [address] PCP - General Family Medicine 06/02/22 Orlando Perkins MD [address] [place] [address] Cardiology 07/14/24 Pardeep Floyd [address] [place] [address] Pulmonary Disease 07/14/24 Beau Sterling MD [address] [place] [address] Nephrology 07/14/24 Nora Valdez [address] 3rd [place] [address] Gastroenterology 07/14/24 Lea Saavedra PharmD [address] [place] [address] Pharmacist Pharmacy 03/01/25 documented as of this encounter
--- OUTSIDE RECORDS SUMMARY | 2025-03-23 14:18 | XMS_ITS | Encounter Summary ---
Author Organization [employer] Address [address] [facility] 7t [place] [address] Care Team Providers Care Denture Model Maker Name Role Phone Anabelle Obrien Primary Care Provider [phone] Oralndo Perkins MD Unavailable Pardeep Floyd Unavailable Beau Sterling MD Unavailable Nora Valdez Unavailable Lea Saavedra PharmD Unavailable [phone] Reason for Visit * Reason Comments Med Refill Encounter Details Date Type Department Care Team ([facility] st Contact Info) Description 08/28/2024 Refill [facility] CHC MED & PEDS [address] [place], [place] [phone] Anabelle Obrien FNP [address] [place], [place] [phone] Routine health maintenance Social History Tobacco Use [...] Description 04/07/2025 11:00 AM EDT Medication Management [facility] CHC MED & PEDS [address] [place] [address] Lea Saavedra, PharmD [address] [place] [address] 06/09/2025 1:00 PM EST Office Visit [facility] OPTOMETRY [address] [place] [address] Katarina Shields, OD [address] [place] [address] documented as of this encounter Visit Diagnoses Diagnosis Routine health maintenance Unspecified examination documented in this encounter Additional Health Concerns Assessment Noted Time PHQ-9 Depression Total Score: 4 07/14/19 25 4:51 PM EST documented as of this encounter Care Teams Denture Model Maker Relationship Specialty Start Date End Date Anabelle Obrien FNP [address] [place] [address] PCP - General Family Medicine 06/02/22 Orlando Perkins MD [address] [place] [address] Cardiology 07/14/24 Pardeep Floyd [address] [place] [address] Pulmonary Disease 07/14/24 Beau Sterling MD [address] [place] [address] Nephrology 07/14/24 Nora Valdez [address] 3rd [place] [address] Gastroenterology 07/14/24 Lea Saavedra PharmD [address] [place] [address] Pharmacist Pharmacy 03/01/25 documented as of this encounter
--- OUTSIDE RECORDS SUMMARY | 2025-03-23 14:18 | XMS_ITS | Encounter Summary ---
Author Organization [employer] Address [address] [facility] 7t [place] [address] Care Team Providers Care Director Of Scout Work Name Role Phone Anabelle Obrien Primary Care Provider [phone] Orlando Perkins MD Unavailable [phone] Pardeep Floyd Unavailable Beau Sterling MD Unavailable Nora Valdez Unavailable Lea Saavedra PharmD Unavailable [phone] Encounter Details Date Type Department Care Team (Late st Contact Info) Description 10/31/2022 Orders Only [facility] MEDICINE [address] [place] [address] Vanessa Nam LPN Social History Tobacco Use [...] - [facility] MED & PEDS [address] [place] [address] Lea Saavedra, PharmCedric [address] [place] [address] 06/09/2025 1:00 PM EST Office Visit [facility] OPTOMETRY [address] [place] [address] Katarina Shields, OD [address] [place] [address] documented as of this encounter Visit Diagnoses Not on filedocumented in this encounter Care Teams Director Of [employer] Work Relationship Specialty Start Date End Date Anabelle Obrien FNP [address] [place] [address] PCP - General Family Medicine 06/02/22 Orlando Perkins MD [address] [place] [address] Cardiology 07/14/24 Pardeep Floyd 5 [place] [address] Pulmonary Disease 07/14/24 Beau Sterling MD [address] [place] [address] Nephrology 07/14/24 Nora Valdez [address] 3rd [place] [address] Gastroenterology 07/14/24 Lea Saavedra, PharmD [address] [place] [address] Pharmacist Pharmacy 03/01/25 documented as of this encounter
--- OUTSIDE RECORDS SUMMARY | 2025-03-23 14:18 | XMS_ITS | Encounter Summary ---
Author Organization [employer] Address [address] [facility] 7t [place] [address] Care Team Providers Care Spool Sander Name Role Phone Anabelle Obrien [employer] P[employer] CHIEF Primary Care Provider [phone] Orlando Perkins MD Unavailable [phone] Pardeep Floyd Unavailable Beau Sterling MD Unavailable Nora Valdez Unavailable Lea Saavedra PharmD Unavailable [phone] Encounter Details Date Type Department Care Team (Late st Contact Info) Description 12/28/2024 Orders Only [facility] [address] [place], [place] [phone] Provider, MD [place] Social History Tobacco Use [...] Description 04/07/2025 11:00 AM EDT Medication Management [facility] CHC MED & PEDS [address] [place] [address] Lea Saavedra, PharmD [address] [place] [address] 06/09/2025 1:00 PM EST Office Visit [facility] OPTOMETRY [address] [place] [address] Katarina Shields, OD [address] [place] [address] documented as of this encounter Procedures Procedure Name Priority Date/Time Associated Diagnosis Comments TRANSTHORACIC ECHO (TTE) COMPLETE Routine 12/27/2024 12:01 PM EDT documented in this encounter Results * Transthoracic echo (TTE) complete (12/27/2024 12:01 PM EDT) us Historical Provider MD [facility] PROCED[facility] Final Result documented in this encounter Visit Diagnoses Not on filedocumented in this encounter Additional Health Concerns Assessment Noted Time PHQ-9 Depression Total Score: 4 07/14/19 25 4:51 PM EST documented as of this encounter Care Teams Spool Sander Relationship Specialty Start Date End Date Anabelle Obrien FNP [address] [place] [address] PCP - General Family Medicine 06/02/22 Orlando Perkins MD [address] [place] [address] Cardiology 07/14/24 Pardeep Floyd [address] [place] [address] Pulmonary Disease 07/14/24 Beau Sterling MD [address] [place] [address] Nephrology 07/14/24 Nora Valdez [address] 3rd [place] [address] Gastroenterology 07/14/24 Lea Saavedra PharmD [address] [place] [address] Pharmacist Pharmacy 03/01/25 documented as of this encounter
--- OUTSIDE RECORDS SUMMARY | 2025-03-23 14:18 | XMS_ITS | Encounter Summary ---
Author Organization [employer] Address [address] [facility] 7t [place] [address] Care Team Providers Care Investigations Chief Name Role Phone Anabelle Obrien Primary Care Provider [phone] Orlando Perkins MD Unavailable [phone] Pardeep Floyd Unavailable Beau Sterling MD Unavailable Nora Valdez Unavailable Lea Saavedra PharmD Unavailable [phone] Encounter Details Date Type Department Care Team (Late st Contact Info) Description 08/28/2022 Orders Only [facility] MED & PEDS [address] [place], [place] [phone] Lilibeth Dennis LPN Social History Tobacco Use [...] 11:00 AM EDT Medication Management [facility] MED & PEDS [address] [place], [place] [phone] Lea Saavedra, PharmD [address] [place], [place] [phone] 06/09/2025 1:00 PM EST Office Visit [facility] OPTOMETRY [address] [place] [address] Katarina Shields, OD [address] [place] [address] documented as of this encounter Visit Diagnoses Not on filedocumented in this encounter Care Teams Investigations Chief Relationship Specialty Start Date End Date Anabelle Obrien FNP [address] [place] [address] PCP - General Family Medicine 06/02/22 Orlando Perkins MD [address] [place] [address] Cardiology 07/14/24 Pardeep Floyd 5 [place] [address] Pulmonary Disease 07/14/24 Beau Sterling MD [address] [place] [address] Nephrology 07/14/24 Nora Valdez [address] 3rd [place] [address] Gastroenterology 07/14/24 Lea Saavedra, Adelfo [address] [place] [address] Pharmacist Pharmacy 03/01/25 documented as of this encounter
--- OUTSIDE RECORDS SUMMARY | 2025-03-23 14:18 | XMS_ITS | Encounter Summary ---
Author Organization [employer] Address [address] [facility] 7t [place] [address] Care Team Providers Care Forder Operator Name Role Phone Anabelle Obrien Primary Care Provider Orlando Perkins MD Unavailable Pardeep Floyd Unavailable Beau Sterling MD Unavailable Nora Valdez Unavailable Lea Saavedra PharmD Unavailable Reason for Referral * Consultation (Routine) - Authorized Specialty Diagnoses / Procedures Referred By Contherrera t Referred To Contact Hematology and Oncology Diagnoses Iron deficiency anemia, unspecified iron deficiency anemia type Anabelle Obrien FNP [address] [place] [address] Phone: tel: fax: Janki Mcclain MD [address] [place] [address] Phone: tel: fax: Referral ID Status Reason Start Date Expiration Date Visits Requested Visits Authorized [id number] Authorized Specialty Services Required 03/20/2025 03/20/2026 1 1 Reason for Visit * Reason Onset Date Comments Results 03/20/2025 Referral 03/20/2025 Encounter Details Date Type Department Care Team ([facility] st Contact Info) Description 03/20/2025 Results Follow-Up [facility] CHC MED & PEDS [address] [place] [address] Anabelle Obrien, ROLL TRUCKER [address] [place] [address] POCT Glucose, CBC auto differential, Ferritin, Additional followed-up results: 2 Social History Tobacco Use Types Packs/Day Years [...] encounter Miscellaneous Notes * Telephone Encounter - Dalia Garcia RN - 03/20/2025 10:55 AM EDT TC placed to pt via [employer] nailhead puncher (ID#[id number]) to inform and advise of below PCP message. Spoke with pt's daughter. Advised pt's daughter pt continues with iron deficiency anemia. Advised pt per PCP,recommend continuation of iron supplement, and increase dietary sources of iron. Advised pt's daughter Vit B12 level has normalized off treatment. Advised pt's daughter PCP has placed a referral to He me/Onc for further consult as discussed at last appt. Pt's daughter requesting PCP review metformindosing as they believe there has been a mistake. Pt's daughter reports pt was previously on metformin 1000 mg twice daily. Advised pt's daughter per review of PCP note, PCP decreased dosing to 500 mgonce daily due to gastrointestinal side effects. Pt's daughter concerned with metformin dosing as pt blood sugar more than 400 the other day. Pt's daughter reports it has since returned to normal limits. Pt's daughter requesting PCP review dosing of metformin as pt was previously on 1000 mg twice daily and is now on 500 mg once daily. Advised message to be sent to PCP for review. ----- Message from Anabelle Obrien sent at 03/20/2025 9:18 AM EDT ----- Please call to review labs: She continues with iron deficiency anemia. Recommend continuation of iron supplement, and increase dietary sources of iron. Her Vit B12 level has normalized off treatment. I have placed a referral to Heme/Onc for further consult as discussed at last appt. Thank you! ----- Message ----- From: Autumn Driscoll MA Sent: 03/13/2025 10:17 AM EDT To: DEMETRICE Rodgers documented in this encounter Plan of Treatment Upcoming Encounters Date Type Department Care Team (Samuel hargrove Contact Info) Description 04/07/2025 11:00 AM EDT Medication Management [facility] CHC MED & PEDS [address] [place] [address] Lea Saavedra PharmD 230 [place] [address] 06/09/2025 1:00 PM EST Office Visit [facility] OPTOMETRY [address] [place] [address] Katarina Shields, OD [address] [place] [address] Scheduled Referrals Name Type Priority Associated Diagnoses Orde r Schedule Referral to Hematology / Oncology Outpatient Referral Routine Iron deficiency anemia, unspecified iron deficiency anemia type Expected: 03/20/2025 (Approximate), Expires: 03/20/2026 documented as of this encounter Visit Diagnoses Diagnosis Iron deficiency anemia, unspecified iron deficiency anemia type- Primary documented in this encounter Additional Health Concerns Assessment Noted Time PHQ-9 Depression Total Score: 4 07/14/19 25 4:51 PM EST documented as of this encounter Care Teams Forder Operator Relationship Specialty Start Date End Date Anabelle Obrien FNP [address] [place] [address] PCP - General Family Medicine 06/02/22 Orlando Perkins MD [address] [place] [address] Cardiology 07/14/24 Pardeep Floyd 5 [place] [address] Pulmonary Disease 07/14/24 Beau Sterling MD [address] [place] [address] Nephrology 07/14/24 Nora Valdez [address] 3rd [place] [address] Gastroenterology 07/14/24 Lea Saavedra, PharmD [address] [place] [address] Pharmacist Pharmacy 03/01/25 documented as of this encounter
--- OUTSIDE RECORDS SUMMARY | 2025-03-23 14:18 | XMS_ITS | Clinical Summary ---
Author Organization [employer] Address [address] [facility] [address] [place] [address] Care Team Providers Care Pmo Consultant Name Role Phone Anabelle Obrien HOSPITALIST Primary Care Provider [phone] Orlando Perkins MD Unavailable [phone] Pardeep Floyd Unavailable Beau Sterling MD Unavailable Nora Valdez Unavailable Lea Saavedra PharmD Unavailable Allergies Active Allergy Reactions Criticality Noted [...] hyperglycemia, without long-term current use of insulin ([facility]) USE DIRECTED TO TEST BLOOD SUGAR FOUR TIMES DAILY 100 strip 11 025 Active Lancets (Teal OrbitTouch Delica Plus [id number]) miscIndications: Type 2 diabetes mellitus with hyperglycemia, without long-term current use of insulin ([facility]) USE DIRECTED TO TEST BLOOD SUGAR FOUR TIMES DAILY 100 each 11 025 Active Blood Glucose Monitoring Suppl (ONE TOUCH ULTRA 2) w/Device kitIndications:T ype 2 diabetes mellitus with hyperglycemia, with long-term current use of insulin ([facility]) USE TO CHECK BLOOD SUGAR FOUR TIMES DAILY 1 kit 025 Active empagliflozin (Jardiance) 10 MG Take 1 tablet (10 mg) by mouth Once per day. 30 tablet 2 025 Active metFORMIN XR (Glucophage-XR) 500 MG 24 hr tablet Take 1 tab twice daily with meals. Do not crush, chew, or split. 180 tablet 1 025 Active Blood Glucose Monitoring Suppl (ONE TOUCH [...] trigger notification to Pharmacy)) Continuous Blood Gluc [employer] (FreeStyle Reena 2 [place]) deviceIndication s:Type 2 diabetes mellitus with hyperglycemia, without long-term current use of insulin ([facility]) Scan sensor every 8 hours 1 each 023 2024 Discontinued(M ed list cleanup (will not trigger notification to Pharmacy)) Continuous Blood Gluc Sensor (FreeStyle Reena 2 Sensor) miscIndications: Type 2 diabetes mellitus with hyperglycemia, without long-term current use of insulin ([facility]) Apply 1 sensor every 14 days 2 each 11 023 2024 Discontinued(M ed list cleanup (will not trigger notification to Pharmacy)) metFORMIN (Glucophage) 1000 MG tabletIndication s:Type 2 diabetes mellitus without complications ([facility]) TAKE 1 TABLET BY MOUTH TWICE DAILY IN THE MORNING AND IN THE EVENING WITH FOOD 180 tablet 3 024 2024 Discontinued(T herapy completed) metFORMIN XR (Glucophage-XR) 500 MG 24 hr tablet Take 1 tablet (500 mg) by mouth with evening meal. Do not crush, chew, or split. 90 tablet 1 025 2024 Discontinued(D ose adjustment) Active Problems Problem Noted Date Diagnosed Date Anemia 03/16/2025 Assessment & Plan (03/16/2025 3:27 PM EDT): - Continue oral iron supplementation. Repeat hemoglobin and iron studies. If anemia persists, referral to hematology for further evaluation. - Risks and side effects: Discussed possible gastrointestinal side effects of iron supplementation, including constipation and abdominal discomfort. Patient notified. Cerebral cavernoma 05/04/2024 Overview (12/07/2024): MRI w/o contrast head completed Apr 2024 demonstrated: Cavernoma/ cavernous angioma, left frontal white matter. No acute stroke/nonhemorrhagic ischemia or acute brain abnormality. September 2024: consult at [facility]. Per consult, does not exhibit features [...] neck Plan: excision/removal by Dr. Witt - [facility] - following discussion w/ cards regarding Eliquis Adenoma of colon 01/15/2024 Overview (01/15/2024): Family history of colon CA Following with [facility] Last colonoscopy 2021, plan for repeat in 2022. Scheduled for Jun 2024 Dizziness 01/15/2024 Assessment & Plan (01/15/2024 11:30 AM EDT): DDX: orthostatic hypotension vs vertigo vs other Pt with very limited water intake, strongly encouraged to increase water intake to help prevent dizziness and dehydration Continues with meclizine 12.5mg PRN. Reviewed med use and SE. Hypomagnesemia 09/24/2023 Overview (03/16/2025): Followed by PCP starting around May 2023. Persistently low despite repleting w/ mag supplement. Referred to Nephrology 09/15/23: [facility] - Dr. Beau Sterling. 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 Discontinued PPI, and ordered additional lab work Continue magnesium 400mg daily Assessment & Plan (03/16/2025 3:15 PM EDT): -Consult January 2025 w/ Nephrology - no med changes. Assessment & Plan (07/14/2024 4:37 PM EST): Last consult Jun 2024. Cont as above. Healthcare maintenance 05/13/2023 Overview (03/16/2025): Mammo: BIRADS 1 on 03/01/25 OPH: January 2023 w/ Dr. Allison at [facility]. (+) proliferative diabetic retinopathy. Plan for follow up in 1 year. Colonoscopy: 06/13/24 at [facility]. 1 polyp removed. Repeat in 5 years. Paroxysmal atrial fibrillation 04/02/2023 Assessment & Plan (07/14/2024 4:35 PM EST): [facility] Previous medication: verapamil 120mg in the AM Afib during hospitalization in Feb 2024 - possibly triggered by diarrhea and electrolyte imbalance Continues on Eliquis 5mg BID and metoprolol 100mg BID Assessment & Plan (03/07/2024 11:53 AM EDT): Following with HFALEXANDRA Perkins Previous medication: verapamil 120mg in the [...] (12/07/2024): Lung CA screening completed 10/14/22 at [facility] Ordered by Crystal CHANDLER Pack [...] CONTINUE TO FOLLOW-UP WITH DR. HARRIS 09/29/23: [facility] CT Chest w/o contrast (Dr. Harris) - impression: surgical changes in the left chest without evidence of recurrent disease. 03/28/24: [facility] CT Chest (Dr. Harris) - Impression: Left lower lobectomy. Small amount of loculated pleural fluid at the left base which appears similar to the previous study. No suspicious pulmonary nodule. Stable borderline enlarged mediastinal lymph node. 09/05/2024: CT scan completed at [facility]. Impression-left lower lobectomy sequela. No suspicious [...] Plan (12/07/2024 4:40 PM EDT): [facility]. Continues on cilostazol 50mg [...] Plan (01/15/2024 11:24 AM EDT): Following with [facility] - Dr. Perkins. 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 Left common iliac artery: significant stenosis, 50-99%. Left external iliac artery: moderate stenosis 20-49%. Left superficial femoral artery: significant stenosis 50-99% Chronic pain 10/06/2018 Type 2 diabetes mellitus wit h hyperglycemia, without long-term current use of insulin 06/01/2018 Overview (03/16/2025): Lab Results Component Value Date HGBA1C 10.2 (A) 03/01/2025 HGBA1C 9.9 (A) 12/07/2024 HGBA1C 10.2 (A) 07/11/2024 HGBA1C 9.2 (H) 04/23/2023 HGBA1C 8.4 (H) 07/17/2020 A1c: (Target </= 8.0), above goal Lab Results Component Value Date TRIG 130 01/13/2025 CHOL 136 01/13/2025 LDLCHOLCAL 58 01/13/2025 HDL 52 01/13/2025 Microalbumin/Cr:Alb: elevated January 2025 - following with nephrology Eye exam: last January 2023. Due. TDap/Td: last 08/10/2014 ACEi/ARB: yes Statin: yes CGM order placed: 05/13/23. Approved by insurance but pt stopped using d/t frequent beeping Established with [facility] Assessment & Plan (03/16/2025 3:26 PM EDT): - Type 2 diabetes mellitus with suboptimal glycemic control. Diarrhea may be secondary to metformin. Considering adjustment of antidiabetic regimen to improve tolerability and glycemic control. - Decreased metformin dose to 500 mg once daily, switched to extended-release formulation to minimize gastrointestinal side effects. Initiate empagliflozin (Jardiance) 10 mg daily, with plan to titrate up to 25 mg as toleratated Plan: DISCONTINUE Metformin 1000mg BID START metformin XR 500mg daily START Jardiance 10mg daily (has not yet been added to med box) CONTINUE Januvia 100mg daily CONTINUE Lantus 15 units subcutaneous at bedtime Assessment [...] 08/10/2014 Essential hypertension 08/10/2014 Assessment & Plan (03/16/2025 3:14 PM EDT): Elevated in office, but well-controlled per home readings. Following closely with Cards. Followed by Dr. Perkins Jul 2023: Nuclear stress test. Impression: probably abnormal. Possible artifact, normal LV function with EF 52% resting, 48% with stress December 2023: Echo with EF 45-50%. Aortic valve mildly calcified December 2024: Echo w/ EF mildly impaired at 45-50% Continues on the following med regimen: Metoprolol 100mg BID Lisinopril 40mg daily Hydralazine 25mg BID Assessment & Plan (07/14/2024 4:45 PM EST): [...] lung disease 08/10/2014 Overview (12/07/2024): Following with [facility] - Dr. Floyd Continues with fluticasone-salmeterol 250-50 1inh BID, Ellipta daily, proair PRN. Reports breathing well controlled on current regimen. May use supplemental oxygen: 2L/min if doing physical activity or exerting herself (orders through [facility]) (6 min walk test [...] left lung 04/02/2023 05/13/2023 Overview (04/02/2023): 03/31/23: [facility] follow up. Respiratory therapy performed [...] Encounters Date Type Department Care Team Description 03/22/2025 Telephone [facility] [address] [place] [address] Anabelle Obrien FNP Medication Question 03/20/2025 Results Follow-Up [facility] [address] [place] [address] Anabelle Obrien FNP POCT Glucose, CBC auto differential, Ferritin, Additional followed-up results: 2 03/13/2025 10:00 AM EDT Office Visit [facility] [address] [place] [address] Anabelle Obrien FNP Iron deficiency anemia, unspecified iron deficiency anemia type (Primary Dx); Type 2 diabetes mellitus with hyperglycemia, without long-term current use of insulin ([facility]); Dietary counseling; Exercise counseling; Essential hypertension; Hypomagnesemia; Healthcare maintenance 03/13/2025 Orders Only GENERIC EXTERNAL DATA DEPARTMENT Provider, Generic External Data 03/13/2025 Travel 03/10/2025 Telephone [facility] [address] [place] [address] Anabelle Obrien FNP chart prep 03/01/2025 Travel 02/23/2025 Orders Only [facility] [address] [place] [address] Anabelle Obrien FNP 02/06/2025 Refill [facility] [address] [place] [address] Anabelle Obrien FNP Type 2 diabetes mellitus with hyperglycemia, without long-term current use of insulin ([facility]) 01/20/2025 Results Follow-Up [facility] [address] [place] [address] Anabelle Obrien FNP POCT HGB A1C, POCT Glucose, Ferritin, Additional followed-up results: 4 01/13/2025 Orders Only GENERIC EXTERNAL DATA DEPARTMENT Provider, Generic External Data 01/13/2025 Refill [facility] [address] [place] [address] Ileana Sim MD Hypomagnesemia (Primary Dx); Low ferritin level 01/09/2025 Refill [facility] [address] [place] [address] Nahid Jordan MD Chronic obstructive pulmonary disease, unspecified COPD type ([facility]) 12/28/2024 Orders Only [facility] [address] [place], [place] [phone] Provider, MD Santo 12/23/2024 Refill [facility] [address] [place], [place] [phone] Anabelle Obrien FNP Chronic obstructive pulmonary disease, [...] Description 04/07/2025 11:00 AM EDT Medication Management [facility] [address] [place] [address] Lea Saavedra, PharmD [address] [place] [address] 06/09/2025 1:00 PM EST Office Visit [facility] [address] [place] [address] Tarka, Katarina, OD [address] [place], [place] [phone] Health Maintenance Due Date Last Done Comments [...] 07/11/2025 07/11/2024 Depression Screening 07/14/2025 07/14/2024, 07/14/19 25 Tobacco Screening 12/07/2025 12/07/2024 Lipid Panel 01/13/2026 [...] Priority Date/Time Associated Diagnosis Comments MAGNESIUM Routine 03/13/2025 11:19 AM EDT CREATININE, SERUM Routine 03/13/2025 11: 19 AM EDT UREA NITROGEN (BUN) Routine 03/13/2025 1 1:19 AM EDT ELECTROLYTE PANEL Routine 03/13/2025 11: 19 AM EDT IRON AND TOTAL IRON BINDING CAPACITY Routine 03/13/2025 11:19 AM EDT Iron deficiency anemia, unspecified iron deficiency anemia type VITAMIN B12/FOLATE, SERUM PANEL Routine 03/13/2025 11:19 AM EDT Iron deficiency anemia, unspecified iron deficiency anemia type FERRITIN Routine 03/13/2025 11:19 AM EDT Iron deficiency anemia, unspecified iron deficiency anemia type CBC WITH AUTO DIFFERENTIAL Routine 03/13/2025 11:19 AM EDT Iron deficiency anemia, unspecified iron deficiency anemia type POCT GLUCOSE Routine 03/13/2025 10:16 AM EDT Type 2 diabetes mellitus with hyperglycemia, without long-term current use of insulin ([facility]) POCT GLYCATED HEMOGLOBIN, TOTAL Routine 03/01/2025 11:08 AM EDT Type 2 diabetes mellitus with hyperglycemia, with long-term current use of insulin ([facility]) BI MAMMOGRAM SCREENING TOMOSYNTHESIS BILATERAL Routine 02/23/2025 11:10 AM EDT ALBUMIN, RANDOM URINE W/CREATININE Routine 01/16/2025 2:18 PM EDT Type 2 diabetes mellitus with hyperglycemia, without long-term current use of insulin ([facility]) Healthcare maintenance MAGNESIUM Routine 01/13/2025 1:19 PM EDT CREATININE, SERUM Routine 01/13/2025 1:1 9 PM EDT UREA NITROGEN (BUN) Routine 01/13/2025 1 :19 PM EDT ELECTROLYTE PANEL Routine 01/13/2025 1:1 9 PM EDT LIPID PANEL, STANDARD Routine 01/13/2025 1:19 PM EDT Type 2 diabetes mellitus with hyperglycemia, without long-term current use of insulin ([facility]) Healthcare maintenance VITAMIN D,25-OH,TOTAL,IA Routine 01/13/2025 1:19 PM EDT Type 2 diabetes mellitus with hyperglycemia, without long-term current use of insulin ([facility]) Healthcare maintenance VITAMIN B12/FOLATE, SERUM PANEL Routine 01/13/2025 1:19 PM EDT Type 2 diabetes mellitus with hyperglycemia, without long-term current use of insulin ([facility]) Healthcare maintenance FERRITIN Routine 01/13/2025 1:19 PM EDT Type 2 diabetes mellitus with hyperglycemia, without long-term current use of insulin ([facility]) Healthcare maintenance CBC WITH AUTO DIFFERENTIAL Routine 01/13/2025 1:19 PM EDT History of anemia TRANSTHORACIC ECHO (TTE) COMPLETE Routine 12/27/2024 12:01 PM EDT HM COLONOSCOPY Routine 06/13/2024 4:01 PM EST HEPATITIS C VIRAL RNA, QUANTITATIVE, REAL-TIME PCR Routine 04/23/2023 9:05 AM EDT Healthcare maintenance from Last 3 Months or Most Recently Relevant to Health Maintenance Results * Vitamin B12/Folate, Serum Panel (03/13/2025 11:19 AM EDT) Only the most recent of2 resultswithin the time period is included. Vitamin B12 720 200 - 900 pg/mL [facility] Comment:NORMAL 200-900 PG/ML INDETERMINATE 160-199 PG/ML DEFICIENT < 160 PG/ML Folate 6.6 > or = 4.0 ng/mL [facility] Comment:Reference Values:> o r = 4.0 ng/mL< 4.0 ng/mL suggests folate deficiency Methotrexate, aminopterin and folinic acid(leucovorin) are chemotherapeutic agents whose molecularstructures are similar to folate; therefore, the Architectfolate assay cannot be used for patients using these drugs. Blood Venous blood specimen / Unknown 03/13/2025 11:19 AM EDT 03/13/2025 2:52 PM EDT Anabelle Obrien HOSPITALIST LAB BLOOD ORDERABLES Final Res ult Performing Organization Address City/[facility]/ZIP Co de Phone Number [facility] [address] [place] [phone] * Creatinine, Serum (03/13/2025 11:19 AM EDT) Only the most recent of2 resultswithin the time period is included. Creatinine, Serum 1.11 0.5 - 1.4 mg/dL [facility] Estimated Glomerular Filt Rate 49 [facility] Comment:Chronic Kidney Disea se: Estimated GFR < 60 mL/min/[id number] Kidney Disease: Estimated GFR < 15 mL/min/1.73m2 03/13/2025 11:1 9 AM EDT 03/13/2025 2:52 PM EDT us Generic External Data Provider LAB BLOOD ORDERAB LES Final Result Performing Organization Address [facility]/ZIP Co de Phone Number [facility] [address] [place] [phone] * (ABNORMAL) CBC auto differential (03/13/2025 11:19 AM EDT) Only the most recent of2 resultswithin the time period is included. White Blood Count 9.5 4.8 - 10.8 X10*3/uL [facility] Red Blood Count 4.15(L) 4.20 - 5.50 X10*6/uL [facility] Hemoglobin 10.6(L) 12.0 - 16.0 g/dl [facility] Hematocrit 33.9(L) 37.0 - 47.0 % [facility] Mean Corpuscular Volume 81.7 80.0 - 98.0 fL [facility] Mean Corpuscular Hemoglobin 25.5(L) 27.0 - 33.0 pg [facility] Mean Corpuscular HGB Conc 31.3 31.0 - 35.0 g/dl [facility] Red Cell Distribution Width 16.8(H) 11.0 - 16.0 % [facility] Platelet Count 285 160 - 400 X10*3/uL [facility] Mean Platelet Volume 11.2 9.4 - 12.3 fL [facility] Neutrophils Percent Auto 72.3 45 - 73 % [facility] Imm Gran Pct Auto 0.4 0.0 - 0.4 % [facility] Lymphocytes Percent Auto 18.1(L) 20 - 40 % [facility] Monocytes Percent Auto 6.5 2 - 11 % [facility] Eosinophils Percent Auto 2.2 0 - 4 % [facility] Basophils Percent Auto 0.5 0 - 2 % [facility] NRBC Pct Auto 0.0 0.0 - 0.2 /100WBC [facility] Neutrophils Absolute Auto 6.8 2.0 - 8.3 x10*3/uL [facility] Imm Gran Abs Auto 0.04(H) 0.00 - 0.03 X10*3/uL [facility] Lymphocytes Absolute Auto 1.7 1.2 - 4.9 X10*3/uL [facility] Monocytes Absolute Auto 0.6 0.1 - 1.2 X10*3/uL [facility] Eosinophils Absolute Auto 0.2 0.0 - 0.4 X10*3/uL [facility] Basophils Absolute Auto 0.1 0.0 - 0.2 X10*3/uL [facility] NRBC Abs Auto 0.000 0.0 - 0.012 X10*3/uL [facility] Blood Venous blood specimen / Unknown 03/13/2025 11:19 AM EDT 03/13/2025 2:52 PM EDT Anabelle Obrien HOSPITALIST LAB BLOOD ORDERABLES Final Res ult Performing Organization Address [facility] Co de Phone Number [facility] [address] [place] [phone] * Iron And Total Iron Binding Capacity (03/13/2025 11:19 AM EDT) Iron 55 30 - 160 mcg/dL [facility] Total Iron Binding Capacity 298 228 - 428 mcg/dL [facility] Percent Iron Saturation 18 15 - 50 % [facility] Unsaturated Iron Binding 243 ug/dL [facility] Blood Venous blood specimen / Unknown 03/13/2025 11:19 AM EDT 03/13/2025 2:52 PM EDT Anabelle Obrien HOSPITALIST LAB BLOOD ORDERABLES Final Res ult Performing Organization Address [facility] Co de Phone Number [facility] [address] [place] [address] [phone] * (ABNORMAL) BUN (Blood Urea Nitrogen) (03/13/2025 11:19 AM EDT) Only the most recent of2 resultswithin the time period is included. Urea Nitrogen (BUN) 29(H) 9 - 16 mg/dL [facility] 03/13/2025 11:1 9 AM EDT 03/13/2025 2:52 PM EDT us Generic External Data Provider LAB BLOOD ORDERAB LES Final Result Performing Organization Address [facility] de Phone Number [facility] [address] [place] [address] [phone] * (ABNORMAL) Magnesium (03/13/2025 11:19 AM EDT) Only the most recent of2 resultswithin the time period is included. Pathologist [facility] Magnesium 1.5(L) 1.6 - 2.6 mg/dL [facility] 03/13/2025 11:1 9 AM EDT 03/13/2025 2:52 PM EDT us Generic External Data Provider LAB BLOOD ORDERAB LES Final Result Performing Organization Address [facility] Number [facility] [address] [place] [address] [phone] * Ferritin (03/13/2025 11:19 AM EDT) Only the most recent of2 resultswithin the time period is included. [facility] Ferritin 15 10 - 250 ng/mL [facility] Blood Venous blood specimen / Unknown 03/13/2025 11:19 AM EDT 03/13/2025 2:52 PM EDT us Anabelle Obrien HOSPITALIST LAB BLOOD ORDERABLES Final Res ult Performing Organization Address [facility] de Phone Number [facility] [address] [place] [phone] * Electrolyte Panel (03/13/2025 11:19 AM EDT) Only the most recent of2 resultswithin the time period is included. [facility] Sodium 140 135 - 145 mmol/L [facility] Potassium 4.9 3.3 - 5.1 mmol/L [facility] Chloride 103 96 - 108 mmol/L [facility] Carbon Dioxide 27 22 - 29 mmol/L [facility] Anion Gap 15 12 - 20 [facility] 03/13/2025 11:1 9 AM EDT 03/13/2025 2:52 PM EDT Generic External Data Provider LAB BLOOD ORDERAB LES Final Result [facility] [address] [facility] [place] [place] [phone] * (ABNORMAL) POCT Glucose (03/13/2025 10:16 AM EDT) Glucose Blood, POC 269(A) 60 - 200 mg/dL QC Media Lot # [id number] Lot# Expiration Date Blood Capillary blood specimen / Unknown 03/13/2025 10:16 AM EDT Anabelle Phalen HOSPITALIST POINT OF CARE TEST ENTER/EDIT ORDERABLES Final Result * (ABNORMAL) POCT A1c (03/01/2025 11:08 AM EDT) Hemoglobin A1C 10.2(A) 4.0 - 5.7 % QC Media Lot # [id number] Lot# Expiration Date Blood 03/01/2025 11:0 8 AM EDT Anabelle Phalen HOSPITALIST POINT OF CARE TEST ENTER/EDIT ORDERABLES Final Result * BI Mammogram Screening Tomosynthesis Bilateral (02/23/2025 11:10 AM EDT) Anatomical Region Laterality Modality Breast Bilateral Mammography 02/23/2025 11:1 0 AM EDT Narrative 02/27/2025 3:33 PM EDT [facility] [address] [place] [address] Mammography Report Signed Patient: Tete Ayon MR#: [id number] : 1955 Acct:[id number] Age/Sex: 69 / F ADM Date: 02/23/25 Loc: HO.MAMMO Attending Dr: Anabelle Obrien HOSPITALIST Ordering Physician: Anabelle Obrien Results: 1Negat pranay Date of Service: 02/23/25 Follow Up: 1 Year From Orig ina Mammogram Procedure(s): MM tomosynthesis screening BI Accession Number(s): [id number] cc: Anabelle Obrien HOSPITALIST EXAMINATION: MM SCREENING DIGITAL BREAST TOMOSYNTHESIS, BILATERAL [...] 02/27/25 1530 DD/ 1110 TD/TT: 02/23/25 1120 Therapist Phys: Procedure Note Donotuseinterpreter, Image - 02/27/2025 [facility] [address] [place] [address] [place] [address] Mammography Report Signed Patient: Johnny Ayon#: [id number] : 1955cct:[id number] Age/Sex: 69 / FADM Date: 02/23/25 Loc: HO.MAMMO Attending Dr: Anabelle REYP Ordering Physician: Anabelle ObrienPResults: 1Negat pranay Date of Service: 02/23/25Follow Up: 1 Year From [facility] ina Mammogram Procedure(s): MM tomosynthesis screening BI Accession Number(s): [id number] cc: Anabelle Obrien HOSPITALIST EXAMINATION: MM SCREENING DIGITAL BREAST TOMOSYNTHESIS, BILATERAL [...] 02/27/25 1530 DD/ 1110 TD/TT: 02/23/25 1120 Therapist Phys: Anabelle SURESH IMG BI PROCEDURES Final Result * (ABNORMAL) Albumin, Random Urine W/Creatinine (01/16/2025 2:18 PM EDT) Creatinine, Urine 131.50 mg/dL [facility] Microalbumin Urine 83.0 mg/L [facility] Microalbum Creatinine Ratio Ur 63.1(H) <30 ug/mg cr [facility] Comment:Albumin/Creatinine R atio Reference Ranges: Normal: < 30 ug/mg creatinine Microalbuminuria: 30 - 300 ug/mg creatinineClinical Albuminuria: > 300 ug/mg creatinine Urine (Urine, Random) 01/16/2025 2:18 PM EDT 01/16/2025 4:41 PM EDT Anabelle Obrien [facility] URINE ORDERABLES Final Res ult Performing Organization Address City/[facility]/ZIP Co de Phone Number [facility] [address] [place] [phone] * Vitamin D, 25-Hydroxy, Total, Immunoassay (01/13/2025 1:19 PM EDT) Vitamin D 25-OH Total 30.5 >30 ng/mL [facility] Comment: Health Based Reference Values*< 20 ng/mL [id number] ng/mL Insufficient> 30 ng/mL Sufficient*Juli CHRISTINE. N [...] EDT 01/13/2025 3:55 PM EDT Anabelle Obrien [facility] BLOOD ORDERABLES Final Res ult Performing Organization Address [facility]/ZIP Co de Phone Number [facility] [address] [place] [address] [phone] * Lipid Panel, Standard (01/13/2025 1:19 PM EDT) Triglycerides 130 <150 mg/dL [facility] Comment:Desirable Triglyceri de: less than 150 mg/dLBorderline High Triglyceride 150-199 mg/dLHigh Triglyceride: 200-499 mg/dLVery High Triglyceride: greater than or equal to 5OO mg/dL Cholesterol 136 <200 mg/dL [facility] Comment:Desirable Cholestero l: less than 200 mg/dLBorderline High Cholesterol: 200-239 mg/dLHigh Cholesterol: greater than 239 mg/dL LDL Cholesterol Calculated 58 <100 mg/dL [facility] Comment:Desirable LDL: less than 100 mg/dLNear Optimal/Above Optimal LDL: 110- 129 mg/dLBorderline High LDL: 130-159 mg/dLHigh LDL: 160-189 mg/dLVery High LDL: greater than or equal to 190 mg/dL HDL Cholesterol 52 >40 mg/dL [facility] Comment:Desirable HDL: great er than 40 mg/dL Note: This HDL assay may give artificially low results in patients with liver disease. Blood Venous blood specimen / Unknown 01/13/2025 1:19 PM EDT 01/13/2025 3:55 PM EDT Anabelle Obrien [facility] LAB BLOOD ORDERABLES Final Res ult [facility] [address] [place] [phone] * Transthoracic echo (TTE) complete (12/27/2024 12:01 PM EDT) Historical Provider CV ECHO PROCEDURES Final Result * Colonoscopy (06/13/2024 4:01 PM EST) Historical Provider HEALTH MAINTENANCE Final Result * Hepatitis C Viral RNA, Quantitative, Real-Time PCR (04/23/2023 9:05 AM EDT) Hepatitis C Viral Load <15 NOT DETECTED NOT DETECTED IU/mL [facility] HCV Log PCR <1.18 NOT DETECTED NOT DETECTED Log IU/mL [facility] Comment:This test was perfor med using Real-Time Polymerase ChainReaction.Reportable Range: 15 IU/mL to 100,000,000 IU/mL(1.18 Log IU/mL to 8.00 Log IU/mL).The analytical performance characteristics of thisassay have been determined by [employer].The modifications have not been cleared or approved bythe FDA. This assay has been validated pursuant to theCLIA regulations and is used for clinical purposes.For more information on this test, go to:http://education.[employer]/faq/EJA98o5(This link is being provided for informational/educational purposes only.)THIS TEST WAS PERFORMED AT:[employer] [place] [id number] COLLAZO MD Blood 04/23/2023 9:05 AM EDT 04/23/2023 11:11 AM EDT us Anabelle Obrien [facility]OSPITAL[facility] LAB BLOOD ORDERABLES Final Res ult [facility] [address] [place] [address] [phone] from Last 3 Months or Most Recently Relevant to Health Maintenance Insurance [address] [place] [id number] [facility] FCI OPTIONS (HMO D-SNP) [facility] STANDARD [address] [facility] [address] [address] [place] [id number] Care Teams Pmo Consultant Relationship Specialty Start Date End Date Anabelle Obrien FNP [address] [place] [address] PCP - General Family Medicine 06/02/22 Orlando Perkins MD [address] [place] [address] Cardiology 07/14/24 Pardeep Floyd [address] [place] [address] Pulmonary Disease 07/14/24 Beau Sterling MD [address] [facility] [address] [place] [address] Nephrology 07/14/24 Nora Valdez [address] 3rd [place] [address] Gastroenterology 07/14/24 Lea Saavedra, PharmD [address] [place] [address] Pharmacist Pharmacy 03/01/25
--- OUTSIDE RECORDS SUMMARY | 2025-03-23 14:18 | XMS_ITS | Encounter Summary ---
Author Organization [employer] Address [address] [facility] 7t [place] [address] Care Team Providers Care State Superintendent Of Schools Name Role Phone Anabelle Obrien SENIOR FIRE PROTECTION ENGINEER Primary Care Provider [phone] Orlando Perkins MD Unavailable [phone] Pardeep Floyd Unavailable Beau Sterling MD Unavailable Nora Valdez Unavailable Lea Saavedra PharmD Unavailable [phone] Encounter Details Date Type Department Care Team (Late st Contact Info) Description 11/03/2022 Orders Only [facility] CHC MED & PEDS [address] [place] [address] Lilibeth Dennis LPN Social History Tobacco Use [...] Description 04/07/2025 11:00 AM EDT Medication Management [facility] CHC MED & PEDS [address] [place] [address] Lea Saavedra, Adelfo [address] [place] [address] 06/09/2025 1:00 PM EST Office Visit [facility] OPTOMETRY [address] [place] [address] Katarina Shields, OD [address] [place] [address] documented as of this encounter Visit Diagnoses Not on filedocumented in this encounter Care Teams State Superintendent Of Schools Relationship Specialty Start Date End Date Anabelle Obrien FNP [address] [place] [address] PCP - General Family Medicine 06/02/22 Orlando Perkins MD [address] [place] [address] Cardiology 07/14/24 Pardeep Floyd [address] [place] [address] Pulmonary Disease 07/14/24 Beau Sterling MD [address] [place] [address] Nephrology 07/14/24 Nora Valdez [address] 3rd [place] [address] Gastroenterology 07/14/24 Lea Saavedra, PharmD [address] [place] [address] Pharmacist Pharmacy 03/01/25 documented as of this encounter
--- OUTSIDE RECORDS SUMMARY | 2025-03-23 14:18 | XMS_ITS | Encounter Summary ---
Author Organization [employer] Address 75 [facility] 7t [place] [address] Care Team Providers Care Brass Pourer Name Role Phone Anabelle Obrien CLERK CASHIER Primary Care Provider [phone] Orlando Perkins MD Unavailable [phone] Pardeep Floyd Unavailable Beau Sterling MD Unavailable Nora Valdez Unavailable Lea Saavedra PharmD Unavailable Reason for Visit * Reason Onset Date Comments Medication Question 03/22/2025 Encounter Details Date Type Department Care Team ([facility] st Contact Info) Description 03/22/2025 Telephone [facility] CHC MED & PEDS [address] [place] [address] Anabelle Obrien FNP [address] [place] [address] Medication Question Social History Tobacco Use Types Packs/Day Years [...] encounter Miscellaneous Notes * Telephone Encounter - Devin Blackwood - 03/22/2025 3:55 PM EDT Tc from pt daughter stating that pt sugar levels have angelo high due to script change of metFORMIN XR(Glucophage-XR) 500 MG 24 hr tablet . Pt daughter is requesting for dosage too stay the same but too state it should be taken 2 times a day instead of 1 Contact at [phone] documented in this encounter Plan of Treatment Upcoming Encounters Date Type Department Care Team (Late st Contact Info) Description 04/07/2025 11:00 AM EDT Medication Management [facility] CHC MED & PEDS [address] [place] [address] Lea Saavedra, PharmD [address] [place] [address] 06/09/2025 1:00 PM EST Office Visit [facility] OPTOMETRY [address] [place] [address] Amayajason Katarina, OD [address] [place] [address] documented as of this encounter Visit Diagnoses Not on filedocumented in this encounter Additional Health Concerns Assessment Noted Time PHQ-9 Depression Total Score: 4 07/14/19 4:51 PM EST documented as of this encounter Care Teams Brass Pourer Relationship Specialty Start Date End Date Anabelle Obrien FNP [address] [place] [address] PCP - General Family Medicine 06/02/22 Orlando Perkins MD [address] [place] [address] Cardiology 07/14/24 Pardeep Floyd 5 [place] [address] Pulmonary Disease 07/14/24 Beau Sterling MD [address] [place] [address] Nephrology 07/14/24 Nora Valdez [address] 3rd [place] [address] Gastroenterology 07/14/24 Lea Saavedra PharmD [address] [place] [address] Pharmacist Pharmacy 03/01/25 documented as of this encounter
--- OUTSIDE RECORDS SUMMARY | 2025-03-23 14:18 | XMS_ITS | Encounter Summary ---
Author Organization [employer] Address [address] [facility] 7t [place] [address] Care Team Providers Care Tar Heat Exchanger Cleaner Name Role Phone Anabelle Obrien BUTADIENE COMPRESSOR OPERATOR Primary Care Provider [phone] Orlando Perkins MD Unavailable [phone] Pardeep Floyd Unavailable Beau Sterling MD Unavailable Nora Valdez Unavailable Lea Saavedra PharmD Unavailable [phone] Encounter Details Date Type Department Care Team (Late st Contact Info) Description 09/08/2024 Orders Only [facility] [address] [place], [place] [phone] Provider, MD Santo Social History Tobacco Use [...] Description 04/07/2025 11:00 AM EDT Medication Management [facility] CHC MED & PEDS [address] [place] [address] Lea Saavedra, PharmD [address] [place] [address] 06/09/2025 1:00 PM EST Office Visit [facility] OPTOMETRY [address] [place] [address] Katarina Shields, OD [address] [place] [address] documented as of this encounter Procedures Procedure [...] Noted Time PHQ-9 Depression Total Score: 4 01/09/20 25 4:51 PM EST documented as of this encounter Care Teams Tar Heat Exchanger Cleaner Relationship Specialty Start Date End Date Anabelle Obrien FNP 230 [place] [address] PCP - General Family Medicine 06/02/22 Orlando Perkins MD [address] [place] [address] Cardiology 07/14/24 Pardeep Floyd 5 [place] [address] Pulmonary Disease 07/14/24 Beau Sterling MD [address] [place] [address] Nephrology 07/14/24 Nora Valdez [address] 3rd [place] [address] Gastroenterology 07/14/24 Lea Saavedra PharmD [address] [place] [address] Pharmacist Pharmacy 03/01/25 documented as of this encounter
== END 2025-03-23 12:41 | disposition home or self-care (01) ==
LOC: HO.HKAS 12:02
PROVIDERS: PCP Registered Nurse; Visit Provider Internal Medicine Nephrology
DX: I10 Essential (primary) hypertension (principal); E83.42 Hypomagnesemia; R80.8 Other proteinuria; N18.31 Chronic kidney disease, stage 3a
CPT/HCPCS: 99214

== ENCOUNTER → 2025-05-22 14:44 | Outpatient (BNV) | payer OTHER, SELFPAY | PROVIDERS: Visit Provider Nurse Practitioner Family | DX: D50.9 Iron deficiency anemia, unspecified (principal); K62.5 Hemorrhage of anus and rectum; Z85.118 Personal history of other malignant neoplasm of bronchus and lung | CPT/HCPCS: 99204 ==

== ENCOUNTER 2025-06-21 11:26 | Outpatient (REF) | payer OTHER, SELFPAY ==
--- OUTSIDE RECORDS SUMMARY | 2025-06-21 15:11 | XMS_ITS | Encounter Summary ---
Author Organization [employer] Address 75 [facility] 7t [place] [address] Care Team Providers Care Industrial Hygienist Name Role Phone Anabelle Obrien PROVER Primary Care Provider [phone] Orlando Perkins MD Unavailable [phone] Pardeep Floyd Unavailable Beau Sterling MD Unavailable Nora Valdez Unavailable Lea Saavedra PharmD Unavailable [phone] Encounter Details Date Type Department Care Team (Late st Contact Info) Description 12/28/2024 Orders Only [facility] [address] [place], [place] [phone] Provider, MD Santo Social History Tobacco Use [...] Care Team (Late st Contact Info) Description 07/21/2025 8:30 AM EST Office Visit [facility] MED & PEDS [address] [place] [address] Anabelle Obrien, PROVER [address] [place] [address] 08/15/2025 11:00 AM EST Medication Management [facility] MED & PEDS [address] [place] [address] Lea Saavedra, PharmD 230 [place] [address] documented as of this encounter Procedures Procedure [...] documented as of this encounter Care Teams Industrial Hygienist Relationship Specialty Start Date End Date Anabelle Obrien FNP [address] [place] [address] PCP - General Family Medicine 06/02/22 Orlando Perkins MD [address] [place] [address] Cardiology 07/14/24 Pardeep Floyd 5 [place] [address] Pulmonary Disease 07/14/24 Beau Sterling MD [address] [place] [address] Nephrology 07/14/24 Nora Valdez [address] 3rd [place] [address] Gastroenterology 07/14/24 Lea Saavedra PharmD [address] [place] [address] Pharmacist Pharmacy 03/01/25 documented as of this encounter
--- OUTSIDE RECORDS SUMMARY | 2025-06-21 15:11 | XMS_ITS | Encounter Summary ---
Author Organization [facility] Address 75 [facility] 7t [place] [address] Care Team Providers Care Design Manager Name Role Phone Anabelle Obrien Primary Care Provider rOlando Perkins MD Unavailable [phone] Pardeep Floyd Unavailable Beau Sterling MD Unavailable Nora Valdez Unavailable Lea Saavedra PharmD Unavailable Encounter Details Date Type Department Care Team (Late st Contact Info) Description 08/28/2022 Orders Only [facility] MED & PEDS [address] [place] [address] Lilibeth Dennis LPN Social History Tobacco Use [...] Description 07/21/2025 8:30 AM EST Office Visit [facility] MED & PEDS [address] [place], [place] [phone] Anabelle Obrien FNP 505 [place] [address] 08/15/2025 11:00 AM EST Medication Management [facility] MED & PEDS [address] [place] [address] Lea Saavedra PharmD 230 [place] [address] documented as of this encounter Visit Diagnoses Not on filedocumented in this encounter Care Teams Design Manager Relationship Specialty Start Date End Date Anabelle Obrien FNP 230 [place] [address] PCP - General Family Medicine 06/02/22 Orlando Perkins MD 5[address] [place] [address] Cardiology 07/14/24 Pardeep Floyd 5 [place] [address] Pulmonary Disease 07/14/24 Beau Sterling MD [address] [place] [address] Nephrology 07/14/24 Nora Valdez [address] 3rd [place] [address] Gastroenterology 07/14/24 Lea Saavedra, PharmD [address] [place] [address] Pharmacist Pharmacy 03/01/25 documented as of this encounter
--- OUTSIDE RECORDS SUMMARY | 2025-06-21 15:12 | XMS_ITS | Encounter Summary ---
Author Organization [employer] Address 75 [facility] 7t [place] [address] Care Team Providers Care Editorial Writer Name Role Phone Anabelle bOrien Primary Care Provider [phone] Orlando Perkins MD Unavailable [phone] Pardeep Floyd Unavailable Beau Sterling MD Unavailable Nora Valdez Unavailable Lea Saavedra PharmD Unavailable [phone] Encounter Details Date Type Department Care Team (Late st Contact Info) Description 10/31/2022 Orders Only [facility] MEDICINE [address] [place] [address] Vanessa Nam LPN Social History Tobacco Use [...] Description 07/21/2025 8:30 AM EST Office Visit [facility] MED & PEDS [address] [place] [address] Anabelle Obrien FNP 505 [place] [address] 08/15/2025 11:00 AM EST Medication Management [facility] MED & PEDS [address] [place] [address] Lea Saavedra PharmD [address] [place] [address] documented as of this encounter Visit Diagnoses Not on filedocumented in this encounter Care Teams Editorial Writer Relationship Specialty Start Date End Date Anabelle Obrien FNP [address] [place] [address] PCP - General Family Medicine 06/02/22 Orlando Perkins MD [address] [place] [address] Cardiology 07/14/24 Pardeep Floyd 5 [place] [address] Pulmonary Disease 07/14/24 Beau Sterling MD [address] [place] [address] Nephrology 07/14/24 Nora Valdez [address] 3rd [place] [address] Gastroenterology 07/14/24 Lea Saavedra, Adelfo [address] [place] [address] Pharmacist Pharmacy 03/01/25 documented as of this encounter
--- OUTSIDE RECORDS SUMMARY | 2025-06-21 15:12 | XMS_ITS | Encounter Summary ---
Author Organization [employer] Address 75 [facility] 7t [place] [address] Care Team Providers Care Diabetes Solutions Specialist Name Role Phone Anabelle Obrien PIPE BENDING MACHINE OPERATOR Primary Care Provider [phone] Orlando Perkins MD Unavailable [phone] Pardeep Floyd Unavailable Beau Sterling MD Unavailable Nora Valdez Unavailable Lea Saavedra PharmD Unavailable [phone] Encounter Details Date Type Department Care Team (Late st Contact Info) Description 11/03/2022 Orders Only [facility] CHC MED & PEDS [address] [place] [address] Lilibeth Dennis LPN Social History Tobacco Use [...] 8:30 AM EST Office Visit [facility] MED & PEDS 505 [place] [address] Anabelle Obrien FNP [address] [place] [address] 08/15/2025 11:00 AM EST Medication Management [facility] MED & PEDS [address] [place] [address] Lea Saavedra PharmD 230 [place] [address] documented as of this encounter Visit Diagnoses Not on filedocumented in this encounter Care Teams Diabetes Solutions Specialist Relationship Specialty Start Date End Date Anabelle Obrien FNP 230 [place] [address] PCP - General Family Medicine 06/02/22 Orlando Perkins MD [address] [place] [address] Cardiology 07/14/24 Pardeep Floyd 5 [place] [address] Pulmonary Disease 07/14/24 Beau Sterling MD [address] [place] [address] Nephrology 07/14/24 Nora Valdez [address] 3rd [place] [address] Gastroenterology 07/14/24 Lae Saavedra, Adelfo [address] [place] [address] Pharmacist Pharmacy 03/01/25 documented as of this encounter
--- OUTSIDE RECORDS SUMMARY | 2025-06-21 15:12 | XMS_ITS | Encounter Summary ---
Author Organization [employer] Address 75 [facility] 7t [place] [address] Care Team Providers Care Acquisition Marketing Coordinator Name Role Phone Anabelle Obrien Primary Care Provider Orlando Perkins MD Unavailable Pardeep Floyd Unavailable Beau Sterling MD Unavailable Nora Valdez Unavailable Lea Saavedra PharmD Unavailable Reason for Visit * Reason Comments Med Refill Encounter Details Date Type Department Care Team (Late st Contact Info) Description 01/18/2024 Refill [facility] MEDICINE [address] [place] [address] Anabelle Obrien FNP [address] [place], [place] [phone] Type 2 diabetes mellitus with hyperglycemia, without long-term current use of insulin (CMS/[facility]) (Primary Dx) Social History Tobacco Use Types [...] the past 12 months, has t he [employer], [facility], oil or water [employer] threatened to shut off services in your [...] Description 07/21/2025 8:30 AM EST Office Visit [facility] MED & PEDS 505 [place] [address] Anabelle Obrien FNP 505 [place] [address] 08/15/2025 11:00 AM EST Medication Management [facility] MED & PEDS [address] [place] [address] Lea Saavedra, PharmD 230 [place] [address] documented as of this encounter Visit Diagnoses Diagnosis Type 2 diabetes mellitus with hyperglycemia, without long-term current use of insulin (HCC)- Primary documented in this encounter Additional Health Concerns Assessment Noted Time PHQ-9 Depression Total Score: 0 04/02/20 23 10:05 AM EDT documented as of this encounter Care Teams Acquisition Marketing Coordinator Relationship Specialty Start Date End Date Anabelle Obrien FNP 230 [place] [address] PCP - General Family Medicine 06/02/22 Orlando Perkins MD [address] [place] [address] Cardiology 07/14/24 Pardeep Floyd [address] [place] [address] Pulmonary Disease 07/14/24 Beau Sterling MD [address] [place] [address] Nephrology 07/14/24 Nora Valdez [address] 3rd [place] [address] Gastroenterology 07/14/24 Lea Saavedra PharmD 230 [place] [address] Pharmacist Pharmacy 03/01/25 documented as of this encounter
--- OUTSIDE RECORDS SUMMARY | 2025-06-21 15:12 | XMS_ITS | Encounter Summary ---
Author Organization [employer] Address [address] [facility] 7t [place] [address] Care Team Providers Care Food Quality Technician Name Role Phone Anabelle Obrien Primary Care Provider Orlando Perkins MD Unavailable [phone] Pardeep Floyd Unavailable Beau Sterling MD Unavailable Nora Valdez Unavailable Lea Saavedra PharmD Unavailable [phone] Reason for Visit * Reason Comments Med Refill Encounter Details Date Type Department Care Team ([facility] st Contact Info) Description 08/28/2024 Refill [facility] CHC MED & PEDS [address] [place], [place] [phone] Anabelle Obrien FNP [address] [place], [place] [phone] Routine health maintenance Social History Tobacco Use [...] 8:30 AM EST Office Visit [facility] MED & PEDS [address] [place] [address] Anabelle Obrien FNP [address] [place] [address] 08/15/2025 11:00 AM EST Medication Management [facility] MED & PEDS [address] [place] [address] Lea Saavedra, PharmD 230 [place] [address] documented as of this encounter Visit Diagnoses Diagnosis Routine health maintenance Unspecified examination documented in this encounter Additional Health Concerns Assessment Noted Time PHQ-9 Depression Total Score: 4 07/14/19 25 4:51 PM EST documented as of this encounter Care Teams Food Quality Technician Relationship Specialty Start Date End Date Anabelle Obrien FNP 230 [place] [address] PCP - General Family Medicine 06/02/22 Orlando Perkins MD [address] [place] [address] Cardiology 07/14/24 Pardeep Floyd 5 [place] [address] Pulmonary Disease 07/14/24 Beau Sterling MD [address] [place] [address] Nephrology 07/14/24 Nora Valdez [address]rd [place] [address] Gastroenterology 07/14/24 Lea Saavedra, Adelfo [address] [place] [address] Pharmacist Pharmacy 03/01/25 documented as of this encounter
--- OUTSIDE RECORDS SUMMARY | 2025-06-21 15:12 | XMS_ITS | Encounter Summary ---
Author Organization [employer] Address [address] [facility] 7t [place] [address] Care Team Providers Care Manager Qa Name Role Phone Anabelle Obrien Primary Care Provider Orlando Perkins MD Unavailable [phone] Pardeep Floyd Unavailable Beau Sterling MD Unavailable Nora Valdez Unavailable Lea Saavedra PharmD Unavailable Encounter Details Date Type Department Care Team (Late st Contact Info) Description 06/08/2023 Orders Only [facility] [address] [place], [place] [phone] Anabelle Obrien FNP [address] [place], [place] [phone] Hypomagnesemia (Primary Dx) Social History Tobacco Use [...] Description 07/21/2025 8:30 AM EST Office Visit [facility] MED & [facility] [address] [place] [address] Anabelle Obrien, EMBEDDED SYSTEMS DEVELOPER [address] [place] [address] 08/15/2025 11:00 AM EST Medication Management [facility] [address] [place] [address] Lea Saavedra, PharmD 230 [place] [address] documented as of this encounter Procedures Procedure Name Priority Date/Time Associated Diagnosis Comments MAGNESIUM Routine 07/14/2023 11:57 AM EST Hypomagnesemia documented in this encounter Results * (ABNORMAL) Magnesium (07/14/2023 11:57 AM EST) Magnesium 1.2(LL) 1.6 - 2.6 mg/dL [facility] Comment:Critical value for t est(s): MAGS Results called to and readback by: YUKI Singh Person calling: LEAT Date: 07/14/23 Time:1330 Blood Venous blood specimen / Unknown 07/14/2023 11:57 AM EST 07/14/2023 12:54 PM EST us Anabelle SURESH LAB BLOOD ORDERABLES Final Res ult [facility] [address] [place] [address] [phone] documented in this encounter Visit Diagnoses Diagnosis Hypomagnesemia- Primary Disorders of magnesium metabolism documented in this encounter Additional Health Concerns Assessment Noted Time PHQ-9 Depression Total Score: 0 04/02/20 23 10:05 AM EDT documented as of this encounter Care Teams Manager Qa Relationship Specialty Start Date End Date Anabelle Obrien FNP [address] [place] [address] PCP - General Family Medicine 06/02/22 Orlando Perkins MD [address] [place] [address] Cardiology 07/14/24 Pardeep Floyd 5 [place] [address] Pulmonary Disease 07/14/24 Beau Sterling MD [address] [place] [address] Nephrology 07/14/24 Nora Valdez [address] 3rd [place] [address] Gastroenterology 07/14/24 Lea Saavedra PharmD [address] [place] [address] Pharmacist Pharmacy 03/01/25 documented as of this encounter
--- OUTSIDE RECORDS SUMMARY | 2025-06-21 15:12 | XMS_ITS | Encounter Summary ---
Author Organization [employer] Address [address] [facility] 7t [place] [address] Care Team Providers Care Molder Name Role Phone Anabelle Obrien WATER TREATMENT SPECIALIST Primary Care Provider [phone] Orlando Perkins MD Unavailable [phone] Pardeep Floyd Unavailable Beau Sterling MD Unavailable Nora Valdez Unavailable Lea Saavedra PharmD Unavailable [phone] Encounter Details Date Type Department Care Team (Late st Contact Info) Description 09/08/2024 Orders Only [facility] [address] [place], [place] [phone] Provider, MD Santo Social History Tobacco Use [...] [facility] [address] [place] [address] Anabelle Obrien, WATER TREATMENT SPECIALIST [address] [place] [address] 08/15/2025 11:00 AM EST Medication Management [facility] [address] [place] [address] Lea Saavedra, PharmD [address] [place], [place] [phone] documented as of this encounter Procedures Procedure [...] documented as of this encounter Care Teams Molder Relationship Specialty Start Date End Date Anabelle Obrien FNP [address] [place] [address] PCP - General Family Medicine 06/02/22 Orlando Perkins MD [address] [place] [address] Cardiology 07/14/24 Pardeep Floyd 5 [place] [address] Pulmonary Disease 07/14/24 Beau Sterling MD [address] [place] [address] Nephrology 07/14/24 Nora Valdez [address] 3rd [place] [address] Gastroenterology 07/14/24 Lea Saavedra PharmD [address] [place] [address] Pharmacist Pharmacy 03/01/25 documented as of this encounter
--- OUTSIDE RECORDS SUMMARY | 2025-06-21 15:12 | XMS_ITS | Encounter Summary ---
Author Organization [employer] Address [address] [facility] 7t [place] [address] Care Team Providers Care Linux Unix Administrator Name Role Phone Anabelle Obrien PLYCOR OPERATOR Primary Care Provider [phone] Orlando Perkins MD Unavailable [phone] Pardeep Floyd Unavailable Beau Sterling MD Unavailable Nora Valdez Unavailable Lea Saavedra PharmD Unavailable [phone] Encounter Details Date Type Department Care Team (Late st Contact Info) Description 03/28/2025 Orders Only [facility] [address] [place], [place] [phone] Provider, MD Santo Social History Tobacco Use [...] Office Visit [facility] MED & PEDS 505 [place] [address] Anabelle Obrien FNP 505 [place] [address] 08/15/2025 11:00 AM EST Medication Management [facility] MED & PEDS [address] [place] [address] Lea Saavedra, PharmD [address] [place] [address] documented as of this encounter Procedures Procedure Name Priority Date/Time Associated Diagnosis Comments CT CHEST WO CONTRAST Routine 03/24/2025 9:29 AM EDT documented in this encounter Results * CT Chest w/o Contrast (03/24/2025 9:29 AM EDT) Anatomical Region Laterality Modality Body, Chest Computed Tomogra phy Historical Provider MD LINN CT PROCEDURES Final R esult documented in this encounter Visit Diagnoses Not on filedocumented in this encounter Additional Health Concerns Assessment Noted Time PHQ-9 Depression Total Score: 4 07/14/19 25 4:51 PM EST documented as of this encounter Care Teams Linux Unix Administrator Relationship Specialty Start Date End Date Anabelle Obrien FNP [address] [place] [address] PCP - General Family Medicine 06/02/22 Orlando Perkins MD [address] [place] [address] Cardiology 07/14/24 Pardeep Floyd 5 [place] [address] Pulmonary Disease 07/14/24 Beau Sterling MD [address] [place] [address] Nephrology 07/14/24 Nora Valdez [address] 3rd [place] [address] Gastroenterology 07/14/24 Lea Saavedra PharmD [address] [place] [address] Pharmacist Pharmacy 03/01/25 documented as of this encounter
--- OUTSIDE RECORDS SUMMARY | 2025-06-21 15:12 | XMS_ITS | Clinical Summary ---
Author Organization [facility] Address [address] [place] [address] Phone Care Team Providers Care Physician Chief Of Pathology Name Role Phone Anabelle Obrien oiler bander Provider Allergies Active Allergy Reactions Criticality Noted [...] mouth 2 (two) times a day. Active ferrous gluconate (FERGON) 324 mg (38 mg iron) tablet TAKE 1 TABLET BY MOUTH 3 TIMES A WEEK (ON THURSDAY, THURSDAY AND THURSDAY) WITH A FULL GLASS OF WATER AND 1 HOUR BEFORE OR 2 HOURS AFTER A MEAL 5 Active empagliflozin (JARDIANCE) 10 mg tablet Take 1 tablet (10 mg total) by mouth daily. 5 Active magnesium aspart,citrate, oxide (Triple Magnesium Complex) 400 mg magnesium capsule Take 1 capsule by mouth daily. 5 Active Active Problems Problem Noted Date Diagnosed Date History of lung cancer 09/15/2024 Assessment & Plan (03/29/2025 8:30 AM EDT): Ms. Segovia is a 69 y.o. female female, former smoker, who started as part of the Lung Cancer Screening Program at [facility] and was noted to have a slow-growing left lower lobe pulmonary nodule measuring about 1 cm. She had a robotic left lower lobectomy in March 2023 for a stage Ia (pT1b, pN0) adenocarcinoma. She presents today after her most recent surveillance CT scan. Her most recent chest CT scan which was performed on March 24, 2025 and shows no new or worsening pulmonary nodules or mediastinal lymphadenopathy. There is an incidental finding of a left sided thyroid nodule the patient was instructed to contact her PCP for follow-up as ultrasound may be warranted. Patient was informed that she is now past her 2-year anniversary surgical date and we will be increasing her chest CT intervals to 12-month intervals moving forward with her next chest CT scan due in March 2026. Assessment & Plan (09/15/2024 3:26 PM EDT): [...] protocol. Chronic pain 10/06/2023 COPD (chronic obstructive pulmonary disease) 08/2023 Disorder of intervertebral disc of lumbar spine 10/06/2023 Hyperlipidemia 10/06/2023 Hypertension 10/06/2023 Lumbar radiculopathy 10/06/2023 Mild anxiety 10/06/2023 Osteoporosis 10/06/2023 Paroxysmal atrial fibrillation 10/06/2023 Hypomagnesemia 10/06/2023 Peripheral vascular disorder 10/06/2023 Urinary incontinence 10/06/2023 Pleural effusion on left 05/12/2023 Resolved Problems Problem Noted Date Diagnosed Date Resolved Date Adenocarcinoma of left lung 10/06/2023 09/15/2024 Nicotine dependence 10/06/2023 09/16/19 25 Encounters Date Type Department Care Team Description 03/29/2025 9:15 AM EDT Office Visit Thoracic [facility] - [place] [address] [facility] [address] [place] [phone] Syd Deng PA History of lung cancer (Primary Dx) 03/24/2025 3:30 PM EDT - 03/24/2025 11:59 PM EDT Hospital Encounter [facility] CT Scan [address] [place] [address] History of lung cancer; Multiple pulmonary nodules Discharge Disposition: Home or Self Care from Last 3 Months Surgical History Surgery Date Site/Laterality Comments HYSTERECTOMY N/A PROCEDURE: HISTORICAL HYSTERECTOMY COLONOSCOPY N/A PROCEDURE: HISTORICAL COLONOSCOPY OTHER SURGICAL HISTORY N/A PROCEDURE: ND SLING OPERATION STRESS INCONTINENCE OTHER SURGICAL HISTORY N/A PROCEDURE: ND OSTECTOMY COMPLETE OTHER METATARSAL HEAD OTHER SURGICAL HISTORY 03/18/2023 PROCEDURE: ND THORACOSCOPY W/LOBECTOMY SINGLE LOBE Medical History Medical History Date Comments Anxiety disorder DX:Anxiety diso rder COPD (chronic obstructive pu lmonary disease) ([facility] V24, [facility] V28) DX:COPD (chronic o bstructive pulmonary disease) ([facility]) Dyslipidemia DX:Dyslipidemia HTN (hypertension) DX:HTN (hyper tension) PVD (peripheral vascular dis ease) ([facility] V24) DX:PVD (peripheral vascular disease) ([facility]) Tobacco abuse DX:Tobacco abuse History of uterine cancer DX:His tory of uterine cancer Type 2 diabetes mellitus wit hout complications ([facility] V24, [facility] V28) DX:Type 2 bianca betes mellitus without complications ([facility]) Urinary incontinence DX:Urinary incontinence Osteoporosis DX:Osteoporosis Nicotine dependence DX:Nicotine dependence Lumbar radiculopathy DX:Lumbar r adiculopathy Mixed hyperlipidemia DX:Mixed hy perlipidemia 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 DX:Disorder of intervertebra l disc of lumbar spine Chronic pain DX:Chronic pain Adenocarcinoma of left lung ([facility] V24, [facility] V28) DX:Adenocarcinoma of left km ng ([facility]) Paroxysmal atrial fibrillati on ([facility] V24, [facility] V28) DX:Paroxysmal atrial fibrill ation (HCC) Hypomagnesemia DX:Hypomagnesemi a Family History Medical History Relation Name Comments Colon cancer Brother Lung cancer Sister Relation Name Status Comments Brother Daughter 3 Alive Sister Alive Social History Tobacco Use Types Packs/Day Years Used Date Smoking Tobacco: Former Cigarettes 0 Q uit: 03/17/2023 Smokeless Tobacco: Never Comments Unknown Sex and Gender Information Value Date Recorded Sex Assigned at Female 09/02/2024 2:11 PM EST Legal Sex Female 8:44 PM EST Gender Identity Female 09/02/2024 2:11 PM EST Sexual Orientation Straight 09/05/2024 3: 18 PM EST Last Filed Vital Signs Vital Sign Reading Time Taken Comments Blood Pressure 126/78 03/29/2025 9:16 AM EDT Pulse 78 03/29/2025 9:16 AM EDT Temperature 36.5 C (97.7 F) 03/29/2025 9:16 AM EDT Respiratory Rate 16 03/29/2025 9:16 AM EDT Oxygen Saturation 93% 03/29/2025 9:16 AM EDT Inhaled Oxygen Concentration - - Weight 77.6 kg (171 lb) 03/29/2025 9:16 AM EDT Height 167.6 cm (5' 6 ) 03/29/2025 9:16 AM EDT Body Mass Index 27.6 03/29/2025 9:16 AM EDT Plan of Treatment Health Maintenance Due Date Last Done Comments Breast Cancer Screening 1955 Colorectal Cancer Screening: Colonoscopy 1955 Diabetes: Annual GFR (Glomerular Filtration Rate) 1954 Diabetes: Annual Foot Exam 1964 Diabetes: Annual Retina Eye Exam 1964 RSV Immunization Adult Patients (1 - Risk 50-74 years 1-dose series) 2004 Zoster Vaccines (1 of 2) 04/25/2015 02/28/2015 Pneumococcal Vaccine: 50+ Years (3 of 3 - PCV20 or PCV21) 09/28/2019 08/03/2019, 08/10/2014 Falls Risk Assessment 07/31/2023 Hepatitis C Screening 07/31/2023 Medicare Annual Wellness Visit 07/31/2023 Osteoporosis Screening (Bone Density Screening) 07/31/2023 Social Influencers of Health Screening 07/31/2023 Hypertension/CHF/CAD Annual BMP Blood Test 01/29/2024 Depression Screening 07/06/2024 DTaP,Tdap,and Td Vaccines (2 - Td or Tdap) 08/10/2024 08/10/2014 Diabetes: Annual Urine Albumin-Creatinine Ratio (uACR) 09/06/2024 COVID-19 Vaccine (4 - 2024-2 6 season) 2025 09/09/2021, 11/28/2020, 10/31/2020 Influenza Vaccine (#1) 2025 08/10/2014 Diabetes: Blood Sugar Contro l Test (HGBA1C) 09/01/2025 03/01/2025, 07/11/2024 Cholesterol Screening (Lipid Panel) 01/13/2030 01/13/2025, 04/23/2023 MMR Vaccines Aged Out 08/24/2014 No [...] Comments CT CHEST WO CONTRAST Routine 03/24/2025 4:14 PM EDT History of lung cancer Multiple pulmonary nodules from Last 3 Months Results * CT Chest wo Contrast (03/24/2025 4:14 PM EDT) Anatomical Region Laterality Modality Body Computed Tomogra phy 03/27/2025 5:17 PM EDT Impressions 03/27/2025 5:20 PM EDT 1. No evidence of recurrent or metastatic disease. 2. Extensive emphysematous changes throughout the lungs status post left lower lobectomy. -------- FINAL REPORT -------- Dictated By: Joan Tanner Dictated Date: 03/27/2025 17:17 ET Assigned Physician: Joan Tanner Reviewed and Electronically Signed By: Joan Tanner Signed Date: 03/27/2025 17:20 ET Workstation ID: [id number] Transcribed By: Self Edit Transcribed Date: 03/27/2025 17:17 ET Narrative 03/27/2025 5:20 PM EDT PROCEDURE: CT CHEST WITHOUT CONTRAST INDICATION: History of lung cancer. Surveillance. TECHNIQUE: Chest CT without contrast. Multi planar reformats were created and interpreted. The examination was performed utilizing dose reduction techniques.Total DLP 872 mGy/cm COMPARISON: No priors available. FINDINGS: LUNGS/PLEURA: Extensive emphysematous changes throughout the lungs status post left lower lobectomy. Tiny calcified granulomas noted throughout the lungs. No suspicious pulmonary nodule is present. There is mild secretions in the distal trachea. MEDIASTINUM: Dense mitral annular calcifications. Coronary artery calcifications. No pericardial effusion. Atherosclerotic plaque of the aorta without evidence for aneurysm. Left thyroid nodule. CHEST WALL: No axillary lymphadenopathy or superficial hematoma. UPPER ABDOMEN:Layering hyperdensity in the duodenal bulb. Dense aortic vascular calcifications. Mild fullness of the right renal collecting system. Diverticulosis. BONES: No acute fracture. Scattered degenerative changes seen throughout the bones. Procedure Note Joan Tanner MD - 03/27/2025 PROCEDURE: CT CHEST WITHOUT CONTRAST INDICATION: History of lung cancer. Surveillance. TECHNIQUE: Chest CT without contrast. Multi planar reformats were createdand interpreted. The examination was performed utilizing dose reductiontechniques.Total DLP 872 mGy/cm COMPARISON: No priors available. FINDINGS: LUNGS/PLEURA: Extensive emphysematous changes throughout the lungs statuspost left lower lobectomy. Tiny calcified granulomas noted throughout thelungs. No suspicious pulmonary nodule is present. There is mildsecretions in the distal trachea. MEDIASTINUM: Dense mitral annular calcifications. Coronary arterycalcifications. No pericardial effusion. Atherosclerotic plaque of theaorta without evidence for aneurysm. Left thyroid nodule. CHEST WALL: No axillary lymphadenopathy or superficial hematoma. UPPER ABDOMEN:Layering hyperdensity in the duodenal bulb. Dense aorticvascular calcifications. Mild fullness of the right renal collectingsystem. Diverticulosis. BONES: No acute fracture. Scattered degenerative changes seen throughoutthe bones. IMPRESSION: 1. No evidence of recurrent or metastatic disease. 2. Extensive emphysematous changes throughout the lungs status post leftlower lobectomy. -------- FINAL REPORT -------- Dictated By: Joan Tanner Dictated Date: 03/27/2025 17:17 ET Assigned Physician: Joan Tanner Reviewed and Electronically Signed By: Joan Tanner Signed Date: 03/27/2025 17:20 ET Workstation ID: [id number] Transcribed By: Self Edit Transcribed Date: 03/27/2025 17:17 ET Meche CHANDLER IMG CT PROCEDURES Final Resul t from Last 3 Months Insurance [facility] MEDIC[facility] Member Subscriber Plan / Payer (Ef fective 2022-Present) Name:Dyan Vera Relation to Subscriber:Self Name:Tete Segovia Payer ID:[id number] Group ID:[id number] Type:Not on file Address: [place] [address] [address] [id number] Care Teams Physician Chief Of Pathology Relationship Specialty Start Date End Date Anabelle Obrien RN [address] [address] PCP - General 11/07/22
--- OUTSIDE RECORDS SUMMARY | 2025-06-21 15:12 | XMS_ITS | Encounter Summary ---
Author Organization [employer] Address [address] [facility] 7t [place] [address] Care Team Providers Care Radial Saw Operator Name Role Phone Anabelle Obrien Primary Care Provider Orlando Perkins MD Unavailable Pardeep Floyd Unavailable Beau Sterling MD Unavailable Nora Valdez Unavailable Lea Saavedra PharmD Unavailable Reason for Visit * Reason Comments Med Refill Encounter Details Date Type Department Care Team (Late st Contact Info) Description 04/01/2025 Refill [facility] & PEDS [address] [place], [place] [phone] Anabelle Obrien FNP [address] [place], [place] [phone] Lumbar radiculopathy Social History Tobacco Use Types Packs/Day Years [...] Description 07/21/2025 8:30 AM EST Office Visit [facility] MED & PEDS [address] [place] [address] Anabelle Obrien FNP [address] [place] [address] 08/15/2025 11:00 AM EST Medication Management [facility] MED & PEDS [address] [place] [address] Lea Saavedra, PharmD [address] [place] [address] documented as of this encounter Visit Diagnoses Diagnosis Lumbar radiculopathy Thoracic or lumbosacral neuritis or radiculitis, unspecified documented in this encounter Additional Health Concerns Assessment Noted Time PHQ-9 Depression Total Score: 4 07/14/19 4:51 PM EST documented as of this encounter Care Teams Radial Saw Operator Relationship Specialty Start Date End Date Anabelle Obrien FNP [address] [place] [address] PCP - General Family Medicine 06/02/22 Orlando Perkins MD [address] [place] [address] Cardiology 07/14/24 Pardeep Floyd [address] [place] [address] Pulmonary Disease 07/14/24 Beau Sterling MD [address] [place] [address] Nephrology 07/14/24 Nora Valdez [address] 3rd [place] [address] Gastroenterology 07/14/24 Lea Saavedra PharmD [address] [place] [address] Pharmacist Pharmacy 03/01/25 documented as of this encounter
--- OUTSIDE RECORDS SUMMARY | 2025-06-21 15:12 | XMS_ITS | Encounter Summary ---
Author Organization [employer] Address [address] [facility] 7t [place] [address] Care Team Providers Care Baggage Clerk Name Role Phone Anabelle Obrien SOLID FIBER PASTER OPERATOR Primary Care Provider [phone] Orlando Perkins MD Unavailable [phone] Pardeep Floyd Unavailable eBau Sterling MD Unavailable Nora Valdez Unavailable Lea Saavedra PharmD Unavailable [phone] Encounter Details Date Type Department Care Team (Late st Contact Info) Description 05/21/2023 Abstract [facility] MED[facility]INE [address] [place], [place] [phone] Syl Rboert Social History Tobacco Use Types Packs/Day Years [...] Description 07/21/2025 8:30 AM EST Office Visit [facility] MED & PEDS [address] [place] [address] Anabelle Obrien FNP [address] [place] [address] 08/15/2025 11:00 AM EST Medication Management [facility] MED & PEDS [address] [place] [address] Lea Saavedra, PharmD [address] [place] [address] documented as of this encounter Procedures Procedure [...] documented as of this encounter Care Teams Baggage Clerk Relationship Specialty Start Date End Date Anabelle Obrien FNP [address] [place] [address] PCP - General Family Medicine 06/02/22 Orlando Perkins MD [address] [place] [address] Cardiology 07/14/24 Pardeep Floyd [address] [place] [address] Pulmonary Disease 07/14/24 Beau Sterling MD [address] [place] [address] Nephrology 07/14/24 Nora Valdez [address] 3rd [place] [address] Gastroenterology 07/14/24 Lea Saavedra, HiroD [address] [place] [address] Pharmacist Pharmacy 03/01/25 documented as of this encounter
--- OUTSIDE RECORDS SUMMARY | 2025-06-21 15:12 | XMS_ITS | Clinical Summary ---
Author Organization [employer] Address [address] [facility] [address] [place] [address] Care Team Providers Care Oxidation Operator Name Role Phone Anabelle Obrien Primary Care Provider [phone] Orlando Perkins MD Unavailable Pardeep Floyd Unavailable [...] by mouth 2 times daily. 023 Active Eliquis 5 MG tablet Take 1 tablet by mouth 2 times daily. 024 Active Blood Pressure kit Use to check blood pressure once daily and when symptomatic 1 kit 024 Active famotidine (Pepcid) 20 MG tabletIndication s:Gastroesophage al reflux disease, unspecified whether esophagitis present Take 1 tablet (20 mg) by mouth if needed in the morning and at bedtime for heartburn or indigestion. 60 tablet 11 06/16/20 25 5:38 PM EST 025 2025 Active metoprolol tartrate (Lopressor) 100 MG tabletIndication s:Essential hypertension,Par oxysmal atrial fibrillation (CMS/HCC) ([facility]) TAKE 1 TABLET BY MOUTH TWICE DAILY IN THE MORNING AND IN THE EVENING Active atorvastatin (Lipitor) 40 MG tabletIndication s:Hyperlipidemia , unspecified hyperlipidemia type TAKE 1 TABLET BY MOUTH EVERY EVENING 180 tablet 06/16/20 25 5:38 PM EST Active Januvia 100 MG tablet TAKE 1 TABLET BY MOUTH EVERY MORNING 90 tablet 3 025 Active hydrOXYzine pamoate (Vistaril) 25 MG capsuleIndicatio ns:Anxiety TAKE 1 CAPSULE BY MOUTH THREE TIMES DAILY NEEDED FOR ANXIETY 90 capsule 3 Active Diclofenac Sodium 1 % gelIndications:C ostochondritis Apply thin layer by topical route (quantity as directed on package insert) to affected area of pain 3 times daily as needed. 50 g 1 Active Incruse Ellipta 62.5 MCG/ACT aerosol powderIndication s:Chronic obstructive pulmonary disease, unspecified COPD type (CMS/HCC) ([facility]) INHALE 1 PUFF BY MOUTH EVERY DAY AT THE SAME TIME RINSE MOUTH AFTER USING 30 each 06/16/20 25 5:39 PM EST Active OneTouch Ultra Test test stripIndications :Type 2 diabetes mellitus with hyperglycemia, without long-term current use of insulin ([facility]) USE DIRECTED TO TEST BLOOD SUGAR FOUR TIMES DAILY 100 strip 06/16/20 25 5:39 PM EST Active Lancets (OneTouch Delica Plus Follug30A) miscIndications: Type 2 diabetes mellitus with hyperglycemia, without long-term current use of insulin ([facility]) USE DIRECTED TO TEST BLOOD SUGAR FOUR TIMES DAILY 100 each 06/16/20 25 5:39 PM EST Active Blood Glucose Monitoring Suppl (ONE TOUCH ULTRA 2) w/Device kitIndications:T ype 2 diabetes mellitus with hyperglycemia, with long-term current use of insulin ([facility]) USE TO CHECK BLOOD SUGAR FOUR TIMES DAILY 1 kit Active metFORMIN XR (Glucophage-XR) 500 MG 24 hr tablet Take 1 tab twice daily with meals. Do not crush, chew, or split. 180 tablet 1 025 Active gabapentin (Neurontin) 300 MG capsuleIndicatio ns:Lumbar radiculopathy TAKE 1 CAPSULE BY MOUTH AT BEDTIME 90 capsule 3 025 Active Fluticasone-Salm eterol 250-50 MCG/ACT aerosol powderIndication s:Chronic obstructive pulmonary disease, unspecified COPD type (CMS/HCC) ([facility]) INHALE 1 PUFF BY MOUTH TWICE DAILY, RINSE MOUTH AFTER USING. 60 each 3 06/16/20 25 5:39 PM EST 025 Active Embecta Pen Needle Samantha 32G X 4 MM misc USE DIRECTED TO INJECT INSULIN 100 each 11 05/18/20 25 4:03 PM EST 025 Active empagliflozin (Jardiance) 25 MGIndications:Ty pe 2 diabetes mellitus with hyperglycemia, with long-term current use of insulin ([facility]) Take 1 tablet (25 mg) by mouth Once per day. 30 tablet 5 06/16/20 25 5:38 PM EST 025 Active insulin glargine (Lantus SoloStar) 100 UNIT/ML penIndications:T ype 2 diabetes mellitus with hyperglycemia, with long-term current use of insulin ([facility]) Inject 17 units subcutaneously every night 15 mL 1 06/16/20 25 5:38 PM EST 025 Active FLUoxetine (PROzac) 40 MG capsuleIndicatio ns:Dysthymic disorder TAKE 1 CAPSULE BY MOUTH EVERY MORNING 90 capsule 3 025 Active Calcium Carb-Cholecalcif matthias 600-10 MG-MCG tabletIndication s:Type 2 diabetes mellitus treated with insulin ([facility]) TAKE 1 TABLET BY MOUTH EVERY MORNING 90 tablet 3 06/16/20 25 5:38 PM EST 025 Active Ascorbic Acid (vitamin C) 500 MG tablet Take 500 mg by mouth in the morning. Active ferrous sulfate 325 (65 Fe) MG EC tablet Take 1 tablet by mouth in the morning. Active magnesium oxide (Mag-Ox) 400 (240 Mg) MG tablet Take 400 mg by mouth. Morning and Evening meals Active nicotine (Nicoderm, Step 2) 14 MG/24HR patch APPLY 1 PATCH TOPICALLY TO THE SKIN IN THE MORNING DO NOT SMOKE WHILE USING PATCH 023 2024 Discontinued(M ed list cleanup (will not trigger notification to Pharmacy)) nicotine (Nicoderm CQ) 7 MG/24HR patchIndications :Cigarette nicotine dependence in remission After completion of 14mg/day patch: Apply 1 patch on the skin (one) time each day at the same time x 6 weeks. 48 patch 023 2024 Discontinued(M ed list cleanup (will not trigger notification to Pharmacy)) Lantus SoloStar 100 UNIT/ML pen INJECT 15 UNITS SUBCUTANEOUSLY AT BEDTIME 15 mL 11 024 2024 Discontinued(R eorder (will not trigger notification to Pharmacy)) meclizine (Antivert) 25 MG tabletIndication s:Dizziness TAKE 1/2 TABLET BY MOUTH THREE TIMES DAILY IN THE MORNING, AT NOON, AND AT BEDTIME NEEDED FOR DIZZINESS 30 tablet 2 024 2024 Discontinued(M ed list cleanup (will not trigger notification to Pharmacy)) Calcium Carb-Cholecalcif matthias 600-10 MG-MCG tabletIndication s:Type 2 diabetes mellitus treated with insulin (HCC) TAKE 1 TABLET BY MOUTH EVERY MORNING 90 tablet 3 024 2024 Discontinued FLUoxetine (PROzac) 40 MG capsuleIndicatio ns:Dysthymic disorder TAKE 1 CAPSULE BY MOUTH EVERY MORNING 90 capsule 3 024 2024 Discontinued Magnesium 400 MG capsule Take 400 mg by mouth Once per day. 90 capsule 1 025 2024 Discontinued(M ed list cleanup (will not trigger notification to Pharmacy)) empagliflozin (Jardiance) 10 MG Take 1 tablet (10 mg) by mouth Once per day. 30 tablet 2 05/18/20 25 4:03 PM EST 2024 Discontinued(D ose adjustment) ferrous gluconate (Fergon) 324 (38 Fe) MG tabletIndication s:Low ferritin level Take 1 pill every Thursday, Thursday, and Thursday. Take with a full glass of water, and ideally 1 hour before a meal or 2 hours after a meal 36 tablet 025 2024 Discontinued(M ed list cleanup (will not trigger notification to Pharmacy)) Active Problems Problem Noted Date Diagnosed Date [...] acute brain abnormality. September 2024: consult at [facility]. Per consult, does not exhibit [...] neck Plan: excision/removal by Dr. Witt - [facility] - following discussion w/ cards regarding Eliquis Adenoma of colon 01/15/2024 Overview (01/15/2024): Family history of colon CA Following with [facility] Last colonoscopy 2021, plan for repeat [...] w/ mag supplement. Referred to Nephrology 09/15/23: [facility] - Dr. Beau Sterling. Suspected [...] OPH: January 2023 w/ Dr. Allison at [facility]. (+) proliferative diabetic retinopathy. Plan for follow up in 1 year. Colonoscopy: 06/13/[address] [facility]. 1 polyp removed. Repeat in 5 years. Paroxysmal atrial fibrillation (CMS/HCC) 023 Assessment & Plan (07/14/2024 4:35 PM EST): Following with HFALEXANDRA Perkins Previous medication: verapamil [...] Plan (01/15/2024 11:22 AM EDT): Following with [facility] - Dr. Perkins Continues with verapamil 120mg in the AM Adenocarcinoma of left lung (CMS/HCC) 11/09/2022 Overview (12/07/2024): Lung CA screening completed 10/14/[address] [facility]. Ordered by Crystal CHANDLER Pack year history: [...] CONTINUE TO FOLLOW-UP WITH DR. HARRIS 09/29/23: [facility] CT Chest w/o contrast (Dr. Harris) - impression: surgical changes in the left chest without evidence of recurrent disease. 03/28/24: [place] CT Chest (Dr. Harris) - Impression: Left lower lobectomy. Small amount of loculated pleural fluid at the left base which appears similar to the previous study. No suspicious pulmonary nodule. Stable borderline enlarged mediastinal lymph node. 09/05/2024: CT scan [facility] at [facility]. Impression-left lower lobectomy sequela. No suspicious developing [...] Plan (12/07/2024 4:40 PM EDT): Following with [facility] - Dr. Perkins. Continues on cilostazol 50mg [...] [facility]. Continues on cilostazol 50mg BID 12/17/23: [...] stopped using d/t frequent beeping Established with [facility] Assessment & Plan (03/16/2025 3:26 PM [...] lung disease 08/10/2014 Overview (12/07/2024): Following with [facility] - Dr. Floyd Continues with fluticasone-salmeterol 250-50 1inh BID, Ellipta daily, proair PRN. Reports breathing well controlled on current regimen. May use supplemental oxygen: 2L/min if doing physical activity or exerting herself (orders through [facility]) (6 min walk test Apr 2024) [...] baseline today Primary adenocarcinoma of left lung (CMS/HCC) 04/02/2005/13/2023 Overview (04/02/2023): 03/31/23: [place] [facility] surgery follow up. Respiratory therapy performed [...] Encounters Date Type Department Care Team Description 06/21/2025 Travel 05/31/2025 Refill [facility] [address] [place] [address] Anabelle Obrien FNP Dysthymic disorder; Type 2 diabetes mellitus treated with insulin ([facility]) 05/26/2025 Travel 05/24/2025 Orders Only [facility] [address] [place] [address] Pamela Houston MD Type 2 diabetes mellitus with hyperglycemia, without long-term current use of insulin (HCC) (Primary Dx) 05/23/2025 Telephone [facility] [address] [place] [address] Lea Saavedra, HiroD 05/10/2025 Refill [facility] [address] [place] [address] Anabelle Obrien FNP 05/06/2025 Refill [facility] [address] [place] [address] Dimitry Gary MD Chronic obstructive pulmonary disease, unspecified COPD type (CMS/HCC) (HCC) 04/13/2025 Refill [facility] [address] [place] [address] Anabelle Obrien FNP Lumbar radiculopathy; Low ferritin level 04/07/2025 Travel 04/04/2025 3:15 PM EDT Office Visit [facility] OPTOMETRY [address] [place] [address] Katarnia Shields, OD Type 2 diabetes mellitus with stable proliferative retinopathy of both eyes, without long-term current use of insulin ([facility]) (Primary Dx); Presbyopia 04/04/2025 Travel 04/01/2025 Refill [facility] [address] [place] [address] Anabelle Obrien FNP Lumbar radiculopathy 03/28/2025 Orders Only [facility] [address] [place], [place] [id number] Provider, MD Santo 03/23/2025 Orders Only GENERIC EXTERNAL DATA DEPARTMENT Provider, Generic External Data 03/23/2025 Telephone [facility] [address] [place] [address] Anabelle Obrien FNP Medication Question 03/22/2025 Telephone [facility] [address], [place] [phone] Anabelle Obrien FNP Medication Question from Last 3 Months Immunizations Immunization Administration [...] Sign Reading Time Taken Comments Blood Pressure 108/54 06/21/2025 11:14 AM EST Pulse 80 06/21/2025 11:14 AM EST Temperature 37.1 C (98.7 F) 03/13/2025 10:15 AM EDT Respiratory Rate 16 03/13/2025 10:15 AM EDT Oxygen Saturation 94% 04/07/2025 11:15 AM EDT Inhaled Oxygen Concentration - - Weight 78 kg (172 lb) 03/13/2025 10:15 AM EDT Height 162.6 cm (5' 4 ) 03/13/2025 10:15 AM EDT Body Mass Index 29.52 03/13/2025 10:15 AM EDT Plan of Treatment Upcoming Encounters Date Type Department Care Team (Late st Contact Info) Description 07/21/2025 8:30 AM EST Office Visit [facility] [address] [place] [address] Anabelle Obrien FNP [address] [place] [address] 08/15/2025 11:00 AM EST Medication Management [facility] [address] [place] [address] Lea Saavedra, PharmD [address] [place] [address] Health Maintenance Due Date Last Done Comments CT Colonography 1955 FIT DNA/Cologuard 1955 FIT 1955 FOBT 1955 Sigmoidoscopy 1955 Diabetes: Foot Exam 1964 RSV Patients and Patients Aged 60 years or older (1 - Risk 50-74 years 1-dose series) 2004 Zoster Vaccines (2 of 3) 04/25/2015 02/28/2015 Pneumococcal Vaccine: 50+ Years (3 of 3 - PCV20 or PCV21) 08/03/2024 08/03/2019, 08/10/2014 DTaP/Tdap/Td Vaccines (2 - Td or Tdap) 08/10/2024 08/10/2014 COVID-19 Vaccine ( - season) 2025 09/09/2021, 11/28/2020, 10/31/2020 Influenza Vaccine (#1) 2025 08/10/2014 Alcohol/Substance Use Screening 07/11/2025 07/11/2024 Depression Screening 07/14/2025 07/14/2024, 07/14/19 25 Diabetes: Hemoglobin A1C 08/26/20252 025, 03/01/2025, 12/07/2024, Additional history exists Lipid Panel 01/13/2026 01/13/2025, 04/05, 12/26/2021, Additional history exists Mammogram 02/23/2026 02/23/2025, 01/03, 01/02/2023, Additional history exists SDOH Screening 03/13/2026 03/13/2025 Diabetes: Urine Protein Screening 03/23/2026 03/23/2025, 01/16/2025, 04/23/2023, Additional history exists Eye Exam 04/04/2026 04/04/2025, 03/08, 04/04/2025, Additional history exists Tobacco Screening 04/04/2026 04/04/2025 Colonoscopy 06/13/2029 06/13/2024, 11/29/2014 Colorectal Cancer Screening [...] on patient's age to complete this topic Goals Goal Patient Goal Type Associated Problems Recent Progress Patient-Stated? Author Help patients manage their type 2 diabetes Care Plan Help patients manage their type 2 diabetes No Lea Saavedra PharmD Weekly blood pressure task Care Plan Weekly blood pressure task No Lea Saavedra PharmCedric Help patients manage their type 2 diabetes Care Plan Help patients manage their type 2 diabetes No Lea Saavedra, PharmCedric Patient has chronic kidney disease Care Plan Patient has chronic kidney disease No Lea Saavedra PharmCedric Weekly blood pressure task Care Plan Weekly blood pressure task No Lea Saavedra, PharmCedric Patient has chronic kidney disease Care Plan Patient has chronic kidney disease No Lea Saavedra, PharmCedric Weekly blood pressure task Care Plan Weekly blood pressure task No Pamela Houston MD Weekly blood pressure task Care Plan Weekly blood pressure task No Pamela Houston MD Patient has chronic kidney disease Care Plan Patient has chronic kidney disease No Pamela Houston MD Patient has chronic kidney disease Care Plan Patient has chronic kidney disease No Pamela Houston MD Weekly blood pressure task Care Plan Weekly blood pressure task No Lea Saavedra PharmD Weekly blood pressure task Care Plan Weekly blood pressure task No Lea Saavedra PharmCedric Patient has chronic kidney disease Care Plan Patient has chronic kidney disease No Lea Saavedra PharmD Patient has chronic kidney disease Care Plan Patient has chronic kidney disease No Lea Saavedra PharmD Weekly blood pressure task Care Plan Weekly blood pressure task No Lea Saavedra PharmD Weekly blood pressure task Care Plan Weekly blood pressure task No Lea Saavedra PharmD Patient has chronic kidney disease Care Plan Patient has chronic kidney disease No Lea Saavedra PharmD Patient has chronic kidney disease Care Plan Patient has chronic kidney disease No Lea Saavedra PharmD Procedures Procedure Name Priority Date/Time Associated Diagnosis Comments POCT GLYCATED HEMOGLOBIN, TOTAL Routine 05/26/2025 11:10 AM EST Type 2 diabetes mellitus with hyperglycemia, with long-term current use of insulin ([facility]) CT CHEST WO CONTRAST Routine 03/24/2025 9:29 AM EDT PROTEIN CREATININE RATIO, URINE Routine 03/23/2025 12:39 PM EDT BI MAMMOGRAM SCREENING TOMOSYNTHESIS BILATERAL Routine 02/23/2025 11:10 AM EDT LIPID PANEL, STANDARD Routine 01/13/2025 1:19 PM EDT Type 2 diabetes mellitus with hyperglycemia, without long-term current use of insulin ([facility]) Healthcare maintenance HM COLONOSCOPY Routine 06/13/2024 4:01 PM EST HEPATITIS C VIRAL RNA, QUANTITATIVE, REAL-TIME PCR Routine 04/23/2023 9:05 AM EDT Healthcare maintenance from Last 3 Months or Most Recently Relevant to Health Maintenance Results * (ABNORMAL) POCT A1c (05/26/2025 11:10 AM EST) Hemoglobin A1C 11.6(A) 4.0 - 5.7 % QC Media Lot # [id number] Lot# Expiration Date [id number] Blood 05/26/2025 11:1 0 AM EST Anabelle Obrien PICK PULLING MACHINE TENDER POINT OF CARE TEST ENTER/EDIT ORDERABLES Final Result * CT Chest w/o Contrast (03/24/2025 9:29 AM EDT) Anatomical Region Laterality Modality Body, Chest Computed Tomogra phy us Historical Provider MD LINN CT PROCEDURES Final R esult * Protein Creatinine Ratio, Urine (03/23/2025 12:39 PM EDT) Creatinine, Urine 33.63 mg/dL [facility] Protein, Total, Random Urine <7 <12 mg/dL [facility] Protein/Creatin ine Ratio, Ur TNP <0.2 [facility] Comment:Unable to calculate urine protein creatinine ratio due tolow creatinine or protein result. 03/23/2025 12:3 9 PM EDT 03/23/2025 5:54 PM EDT Generic External Data Provider LAB URINE ORDERAB LES Final Result Performing Organization Address City/State/[facility] Co de Phone Number [facility] [address] [place] [phone] * BI Mammogram Screening Tomosynthesis Bilateral (02/23/2025 11:10 AM EDT) Anatomical Region Laterality Modality Breast Bilateral Mammography 02/23/2025 11:1 0 AM EDT Narrative 02/27/2025 3:33 PM EDT [facility] [address] [place] [address] Mammography Report Signed Patient: Tete Ayon MR#: [id number] : 1955 Acct:[id number] Age/Sex: 69 / F ADM Date: 02/23/25 Loc: HO.MAMMO Attending Dr: Anabelle SURESH Ordering Physician: Anabelle Obrien Results: 1Negat pranay Date of Service: 02/23/25 Follow Up: 1 Year From Orig inal Mammogram Procedure(s): MM tomosynthesis screening BI Accession Number(s): [id number] cc: Phalen,Anabelle PICK PULLING MACHINE TENDER EXAMINATION: MM SCREENING DIGITAL BREAST TOMOSYNTHESIS, BILATERAL [...] Astrid Garrett DO 02/27/2025 03:30 PM EDT RP Dictated By: Astrid Garrett DO Signed By: <Electronically signed by Astrid Garrett DO in OV> 02/27/25 1530 DD/ 1110 TD/TT: 02/23/25 1120 Online Banking Specialist: Procedure Note Donotuseinterpreter, Image - 02/27/2025 [facility] [address] [place] [address] Mammography Report Signed Patient: Mckenzie AyonShannan#: [id number] : 4Acct:[id number] Age/Sex: 69 / FADM Date: 02/23/25 Loc: HO.MAMMO Attending Dr: Anabelle Obrien PICK PULLING MACHINE TENDER Ordering Physician: Anabelle ObrienPResults: 1Negat pranay Date of Service: 02/23/25Follow Up: 1 Year From Orig inal Mammogram Procedure(s): MM tomosynthesis screening BI Accession Number(s): [id number] cc: Anabelle Orbien PICK PULLING MACHINE TENDER EXAMINATION: MM SCREENING DIGITAL BREAST TOMOSYNTHESIS, BILATERAL [...] Astrid Garrett DO 02/27/2025 03:30 PM EDT RP Dictated By: Astrid Garrett DO Signed By: <Electronically signed by Astrid Garrett DO in OV> 02/27/25 1530 DD/ 1110 TD/TT: 02/23/25 1120 Online Banking Specialist: us Anabelle Obrien PICK PULLING MACHINE TENDER IMG BI PROCEDURES Final Result * Lipid Panel, Standard (01/13/2025 1:19 PM EDT) Triglycerides 130 <150 mg/dL [facility] Comment:Desirable Triglyceri de: less than 150 mg/dLBorderline High Triglyceride 150-199 mg/dLHigh Triglyceride: 200-499 mg/dLVery High Triglyceride: greater than or equal to 5OO mg/dL Cholesterol 136 <200 mg/dL [facility] Comment:Desirable Cholestero l: less than 200 mg/dLBorderline High Cholesterol: 200-239 mg/dLHigh Cholesterol: greater than 239 mg/dL LDL Cholesterol Calculated 58 <100 mg/dL [facility] Comment:Desirable LDL: less than 100 mg/dLNear Optimal/Above Optimal LDL: 110- 129 mg/dLBorderline High LDL: 130-159 mg/dLHigh LDL: 160-189 mg/dLVery High LDL: greater than or equal to 190 mg/dL HDL Cholesterol 52 >40 mg/dL [facility] Comment:Desirable HDL: great er than 40 mg/dL Note: This HDL assay may give artificially low results in patients with liver disease. Blood Venous blood specimen / Unknown 01/13/2025 1:19 PM EDT 01/13/2025 3:55 PM EDT Anabelle Micah PICK PULLING MACHINE TENDER LAB BLOOD ORDERABLES Final Res ult Performing Organization Address [facility]/ZIP Co de Phone Number [facility] [address] [place] [address] [phone] * Hm Colonoscopy (06/13/2024 4:01 PM EST) Historical Provider HEALTH MAINTENANCE Final Result * Hepatitis C Viral RNA, Quantitative, Real-Time PCR (04/23/2023 9:05 AM EDT) Hepatitis C Viral Load <15 NOT DETECTED NOT DETECTED IU/mL [facility] HCV Log PCR <1.18 NOT DETECTED NOT DETECTED Log IU/mL [facility] Comment:This test was perfor med using Real-Time Polymerase ChainReaction.Reportable Range: 15 IU/mL to 100,000,000 IU/mL(1.18 Log IU/mL to 8.00 Log IU/mL).The analytical performance characteristics of thisassay have been determined by [employer].The modifications have not been cleared or approved bythe FDA. This assay has been validated pursuant to theCLIA regulations and is used for clinical purposes.For more information on this test, go to:http://education.Solvate/faq/OOD24x7(This link is being provided for informational/educational purposes only.)THIS TEST WAS PERFORMED AT:[facility] [place] [phone] COLLAZO MD Blood 04/23/2023 9:05 AM EDT 04/23/2023 11:11 AM EDT Anabelletash Obrien PICK PULLING MACHINE TENDER LAB BLOOD ORDERABLES Final Res ult Performing Organization Address [facility]/ZIP Co de Phone Number [facility] [address] [place] [address] [phone] from Last 3 Months or Most Recently Relevant to Health Maintenance Additional Health Concerns Active Problems Noted Date Diagnosed Date Help patients manage their type 2 diabetes 05/23 Weekly blood pressure task 05/23/2025 Help patients manage their type 2 diabetes 05/23 Patient has chronic kidney disease 05/23/2025 Weekly blood pressure task 05/23/2025 Patient has chronic kidney disease 05/23/2025 Weekly blood pressure task 05/24/2025 Weekly blood pressure task 05/24/2025 Patient has chronic kidney disease 05/24/2025 Patient has chronic kidney disease 05/24/2025 Weekly blood pressure task 05/26/2025 Weekly blood pressure task 05/26/2025 Patient has chronic kidney disease 05/26/2025 Patient has chronic kidney disease 05/26/2025 Weekly blood pressure task 06/21/2025 Weekly blood pressure task 06/21/2025 Patient has chronic kidney disease 06/21/2025 Patient has chronic kidney disease 06/21/2025 Insurance [facility] [employer] OPT[employer] (O D-SNP) GERALDINE CLEMENS [id number] Care Teams Oxidation Operator Relationship Specialty Start Date End Date Anabelle Obrien FNP [address] [place] [address] PCP - General Family Medicine 06/02/22 Orlando Perkins MD [address] [place] [phone] Cardiology 07/14/24 Pardeep Floyd [address] [place] [address] Pulmonary Disease 07/14/24 Beau Sterling MD [address] [place] [address] Nephrology 07/14/24 Nora Valdez [address] [place] [address] Gastroenterology 07/14/24 Lea Saavedra, Adelfo [address] [place] [address] Pharmacist Pharmacy 03/01/25
--- OUTSIDE RECORDS SUMMARY | 2025-06-21 15:12 | XMS_ITS | Encounter Summary ---
Author Organization [employer] Address [address] [facility] 7t [place] [address] Care Team Providers Care Notching Machine Operator Name Role Phone Anabelle Obrien PHOTOENGRAVER APPRENTICE Primary Care Provider [phone] Orlando Perkins MD Unavailable [phone] Pardeep Floyd Unavailable Beau Sterling MD Unavailable Nora Valdez Unavailable Lea Saavedra PharmD Unavailable [phone] Encounter Details Date Type Department Care Team (Latest Contact Info) Description 06/21/2025 Travel Social History Tobacco Use Types Packs/Day [...] 07/21/2025 8:30 AM EST Office Visit [facility] [address] [place] [address] Anabelle Obrien, PHOTOENGRAVER APPRENTICE [address] [place] [address] 08/15/2025 11:00 AM EST Medication Management [facility] [address] [place] [address] Lea Saavedra PharmD [address] [place] [address] documented as of this encounter Goals Goal Patient Goal Type Associated Problems Recent Progress Patient-Stated? Author Help patients manage their type 2 diabetes Care Plan Help patients manage their type 2 diabetes No Lea Saavedra, PharmCedric Weekly blood pressure task Care Plan Weekly blood pressure task No Lea Saavedra, PharmD Help patients manage their type 2 diabetes Care Plan Help patients manage their type 2 diabetes No Lea Saavedra, PharmD Patient has chronic kidney disease Care Plan Patient has chronic kidney disease No Lea Saavedra, PharmCedric Weekly blood pressure task Care Plan Weekly blood pressure task No Saavedra, Lea, PharmD Patient has chronic kidney disease Care [...] blood pressure task No Lea Saavedra PharmCedric Weekly blood pressure task Care Plan Weekly blood pressure task No Lea Saavedra PharmCedric Patient has chronic kidney disease Care Plan Patient has chronic kidney disease No Lea Saavedra PharmCedric Patient has chronic kidney disease Care Plan Patient has chronic kidney disease No Lea Saavedra PharmCedric Weekly blood pressure task Care Plan Weekly blood pressure task No Lea Saavedra PharmCedric Weekly blood pressure task Care Plan Weekly blood pressure task No Lea Saavedra PharmCedric Patient has chronic kidney disease Care Plan Patient has chronic kidney disease No Lea Saavedra PharmCedric Patient has chronic kidney disease Care Plan Patient has chronic kidney disease No Lea Saavedra PharmCedric documented as of this encounter Visit Diagnoses Not on filedocumented in this encounter Additional Health Concerns Active Problems Noted Date [...] 06/21/2025 Patient has chronic kidney disease 06/21/2025 Assessment Noted Time PHQ-9 Depression Total Score: 4 07/14/19 25 4:51 PM EST documented as of this encounter Care Teams Notching Machine Operator Relationship Specialty Start Date End Date Anabelle Obrien FNP [address] [place] [address] PCP - General Family Medicine 06/02/22 Orlando Perkins MD [address] [place] [address] Cardiology 07/14/24 Pardeep Floyd [address] [place] [address] Pulmonary Disease 07/14/24 Beau Sterling MD [address] [place] [address] Nephrology 07/14/24 Nora Valdez [address] 3rd [place] [address] Gastroenterology 07/14/24 Lea Saaverda PharmD [address] [place] [address] Pharmacist Pharmacy 03/01/25 documented as of this encounter
[2025-06-21 15:58] LABS: Anion Gap 15 (12-20); Blood Urea Nitrogen 30 mg/dL (9-16); Carbon Dioxide 25 mmol/L (22-29); Chloride 102 mmol/L (96-108); Estimated Glomerular Filt Rate 37; Magnesium 2.3 mg/dL (1.6-2.6); Potassium 5.0 mmol/L (3.3-5.1); Sodium 137 mmol/L (135-145)
[2025-06-21 16:58] LABS: Total Protein Urine Random < 7 mg/dL (<12)
== END 2025-06-21 11:27 ==
LOC: HO.CHCLDS 11:26
PROVIDERS: Visit Provider Internal Medicine Nephrology
DX: I12.9 Hypertensive chronic kidney disease with stage 1 through stage 4 chronic kidney disease, or unspecified chronic kidney disease (principal); N18.31 Chronic kidney disease, stage 3a; E83.42 Hypomagnesemia; R80.8 Other proteinuria
CPT/HCPCS: 36415; 80051; 82565; 82570; 83735; 84156; 84520

== ENCOUNTER 2025-06-30 11:20 | Outpatient (AMB) | payer OTHER, SELFPAY ==
[2025-06-30 11:20] VITALS: BP 94/40; PULSE 74; O2SAT 91; BMI 29.5
--- NOTE | 2025-06-30 11:20 | HO.NEPHOV ---
Vital Signs 06/30/25 11:20 Height 5 ft 4 in Weight 172 lb BMI 29.5 BP 94/40 L Blood Pressure Location Rt brachial Position Sitting Pulse 74 Pulse Source Pulse Oximeter Pulse Oximetry (%) 91 L Oxygen Delivery Method Room Air Intake Visit Reasons: 3 mo follow up-[facility] [employer] Machine Tender Required: No [employer] Machine Tender Services: [employer] Machine Tender Offered & Declined (Daughter will translate) Accompanied by: Daughter Allergies ciprofloxacin (From CIPRO) Allergy (Severe, Verified 05/22/25 15:06) ANAPHYLAXIS HPI Comments Details: Tete has longstanding history of hypertension and diabetes mellitus. She denies nausea, vomiting or diarrhea. She has no history of calcium disorders. She has not been taking any diuretics. She has history of lung cancer and had undergone surgery. She never received any chemotherapy. She has no history of nephrocalcinosis. She has no family history of hypomagnesemia. She has history of excessive alcohol intake for a long time but currently does not drink at all. Her blood pressure has been at goal. She does not have any chest pain, shortness of breath, palpitation, syncope or history of cardiac dysfunction. She denied any active complaints during the time of this office visit [facility] Medical History (Updated 05/25/25 @ 18:33 by Beau Sterling MD) History of lung cancer Personal history of nicotine dependence CAD (coronary artery disease) Supplemental oxygen dependent Hx of cancer of uterus Salmonella Hypoxemia History of uterine cancer Type 2 diabetes mellitus, with long-term current use of insulin COPD (chronic obstructive pulmonary disease) PVD (peripheral vascular disease) Osteoporosis Family history of colon cancer Anxiety Dyslipidemia HTN (hypertension) Surgical History Hx of surgical procedure (07/28/24) History of lung surgery History of bunionectomy of left great toe History of colonoscopy (06/13/24) History of pubovaginal sling History of hysterectomy Family History Brother Colon cancer Social History Household Members: Family Housing: House Are you a primary career development coordinator to a significant other at home: No Do you presently have visiting nurse or other home services: No Alcohol intake: never Patient Tobacco Use Status: Never used Tobacco Tobacco use type: Cigarette Current occupational status: disabled Review of Systems Const All systems reviewed & are unremarkable except as noted in HPI and below Physical Exam Vital Signs: Last Vital Signs Pulse 74 06/30/25 11:20 BP 94/40 L 06/30/25 11:20 Pulse Ox 91 L 06/30/25 11:20 Oxygen Delivery Method Room Air 06/30/25 11:20 BMI result Body Mass Index 29.5 Const General: comfortable and no acute distress Orientation/consciousness: patient oriented x3 HEENT Head: Yes normocephalic Mouth: Normal oral and palatal mucosa present Eyes EOM: EOMs intact bilaterally Neck Neck: Yes supple Resp Auscultation: clear to auscultation bilaterally Cardio Jugular venous distension: no JVD Rate: regular rate GI Palpation (GI): Soft to palpation Auscultation: normal bowel sounds General: Yes no CVA tenderness Back/Spine/Pelvis Back: no CVA tenderness Skin General skin exam: no rashes or lesions noted Neuro General: patient oriented x3 and moves all extremities Extrem General: Yes no pedal edema Results Reviewed Nephrology Results: Hgb, (12.0-16.0) 11.4 g/dl L 05/22/25 WBC, (4.8-10.8) 9.2 X10*3/uL 05/22/25 Plt Count, (160-400) 264 X10*3/uL 05/22/25 Sodium, (135-145) 137 mmol/L 06/21/25 Potassium, (3.3-5.1) 5.0 mmol/L 06/21/25 Chloride, (96-108) 102 mmol/L 06/21/25 Carbon Dioxide, (22-29) 25 mmol/L 06/21/25 BUN, (9-16) 30 mg/dL H 06/21/25 Creatinine, (0.5-1.4) 1.39 mg/dL 06/21/25 Calcium, (8.4-10.2) 9.8 mg/dL 05/22/25 Urine Creatinine 62.31 mg/dL 06/21/25 Protein/Creatinin Ratio TNP 06/21/25 Assessment & Plan Assessment & Plan (1) CKD stage 3a, GFR 45-59 ml/min: Code(s): N18.31 - Chronic kidney disease, stage 3a Category: Medical (2) HTN (hypertension): Code(s): I10 - Essential (primary) hypertension Category: Medical Qualifiers: Hypertension type: primary hypertension Qualified Code(s): I10 - Essential (primary) hypertension Tina Epstein had 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 Her renal functions are stable. She also has been taking proton pump inhibitor in the past. She is on magnesium replacement. Her blood pressure has been at goal on current medication regimen. Her serum potassium had been normal. I shall consider starting her on Jardiance with time soon. She may be a candidate for amiloride. I did not make any other medication changes today but ordered follow up lab work. All her and her daughter's questions were answered Orders: Orders Creatinine 6 Months N18.31 - Chronic kidney disease, stage 3a Electrolytes 6 Months N18.31 - Chronic kidney disease, stage 3a Blood Urea Nitrogen 6 Months N18.31 - Chronic kidney disease, stage 3a Magnesium 6 Months I10 - Essential (primary) hypertension, N18.31 - Chronic kidney disease, stage 3a Coding Level of Care Code Est Pt Level 4 (67267) Diagnoses CKD stage 3a, GFR 45-59 ml/min N18.31 Primary hypertension I10 Hypertension type: primary hypertension
--- OUTSIDE RECORDS SUMMARY | 2025-06-30 11:23 | XMS_ITS | Encounter Summary ---
Author Organization [employer] Address [address] [facility] 7t [place] [address] Care Team Providers Care Net Coordinator Name Role Phone Anabelle Obrien EXTRUSION PRESS SUPERVISOR Primary Care Provider Orlando Perkins MD Unavailable [phone] Pardeep Floyd Unavailable Beau Sterling MD Unavailable Nora Valdez Unavailable Lea Saavedra PharmD Unavailable [phone] Encounter Details Date Type Department Care Team (Late st Contact Info) Description 12/28/2024 Orders Only [facility] [address] [place], [place] [id number] Provider, MD Santo Social History Tobacco Use [facility] [address] [place] [address] Anabelle Obrien, EXTRUSION PRESS SUPERVISOR [address] [place] [address] 08/15/2025 11:00 AM EST Medication Management [facility] [address] [place] [address] Lea Saavedra, PharmD [address] [place] [address] documented as of this encounter Procedures Procedure [...] documented as of this encounter Care Teams Net Coordinator Relationship Specialty Start Date End Date Anabelle Obrien FNP [address] [place] [address] PCP - General Family Medicine 06/02/22 Orlando Perkins MD [address] [place] [address] Cardiology 07/14/24 Pardeep Floyd [address] [place] [address] Pulmonary Disease 07/14/24 Beau Sterling MD [address] [place] [address] Nephrology 07/14/24 Nora Valdez [address] 3rd [place] [address] Gastroenterology 07/14/24 Lea Saavedra PharmD [address] [place] [address] Pharmacist Pharmacy 03/01/25 documented as of this encounter
--- OUTSIDE RECORDS SUMMARY | 2025-06-30 11:23 | XMS_ITS | Clinical Summary ---
Author Organization [facility] Address [address] [place] [address] Phone Care Team Providers Care Workers Compensation Claims Examiner Name Role Phone Anabelle Obrien investment associate Provider Allergies Active Allergy Reactions Criticality Noted [...] of the Lung Cancer Screening Program at [facility] and was noted to have a [...] HISTORICAL COLONOSCOPY OTHER SURGICAL HISTORY N/A PROCEDURE: NH SLING OPERATION STRESS INCONTINENCE OTHER SURGICAL HISTORY N/A PROCEDURE: NH OSTECTOMY COMPLETE OTHER METATARSAL HEAD OTHER SURGICAL HISTORY 03/18/2023 PROCEDURE: NH THORACOSCOPY W/LOBECTOMY SINGLE LOBE Medical History Medical History Date Comments Anxiety disorder DX:Anxiety diso rder COPD (chronic obstructive pu lmonary disease) ([facility] V24, [facility] V28) DX:COPD (chronic o bstructive pulmonary disease) ([facility]) Dyslipidemia DX:Dyslipidemia HTN (hypertension) DX:HTN (hyper tension) PVD (peripheral vascular dis ease) ([facility] V24) DX:PVD (peripheral vascular disease) ([facility]) Tobacco abuse DX:Tobacco abuse History of uterine cancer DX:His tory of uterine cancer Type 2 diabetes mellitus wit hout complications ([facility] V24, [facility] V28) DX:Type 2 bianca betes mellitus without complications ([facility]) Urinary incontinence DX:Urinary incontinence Osteoporosis DX:Osteoporosis Nicotine dependence DX:Nicotine dependence Lumbar radiculopathy DX:Lumbar r adiculopathy Mixed hyperlipidemia DX:Mixed hy perlipidemia 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 DX:Disorder of intervertebra l disc of lumbar spine Chronic pain DX:Chronic pain Adenocarcinoma of left lung ([facility] V24, [facility] V28) DX:Adenocarcinoma of left km ng ([facility]) Paroxysmal atrial fibrillati on ([facility] V24, [facility] V28) DX:Paroxysmal atrial fibrill ation ([facility]) Hypomagnesemia DX:Hypomagnesemi a Family History Medical History [...] patient's age to complete this topic Insurance [place] [id number] [employer] MEDICARE Member Subscriber Plan / Payer (Ef fective 2022-Present) Name:Dyan Vera Relation to Subscriber:Self Name:Tete Segovia Payer ID:[id number] Group ID:[id number] Type:Not on file Address: [place] [address] [address] [place] [address] Care Teams Workers Compensation Claims Examiner Relationship Specialty Start Date End Date Anabelle Obrien RN [address] [place] [address] [place] [address] PCP - General 11/07/22
--- OUTSIDE RECORDS SUMMARY | 2025-06-30 11:23 | XMS_ITS | Encounter Summary ---
Author Organization [employer] Address [address] [facility] 7t [place] [address] Care Team Providers Care Side Stitching Machine Operator Name Role Phone Anabelle Obrien Primary Care Provider Orlando Perkins MD Unavailable Pardeep Floyd Unavailable Beau Sterling MD Unavailable Nora Valdez Unavailable Lea Saavedra PharmD Unavailable [phone] Reason for Visit * Reason Comments Med Refill Encounter Details Date Type Department Care Team ([facility] st Contact Info) Description 08/28/2024 Refill [facility] [address] [place], [place] [phone] Anabelle Obrien FNP [address] [place], [place] [phone] Routine health maintenance Social History Tobacco Use [...] Description 07/21/2025 8:30 AM EST Office Visit [facility] [address] [place] [address] Anabelle Obrien FNP [address] [place] [address] 08/15/2025 11:00 AM EST Medication Management [facility] [address] [place] [address] Lea Saavedra, PharmD [address] [place] [address] documented as of this encounter Visit Diagnoses Diagnosis Routine health maintenance Unspecified examination documented in this encounter Additional Health Concerns Assessment Noted Time PHQ-9 Depression Total Score: 4 07/14/19 25 4:51 PM EST documented as of this encounter Care Teams Side Stitching Machine Operator Relationship Specialty Start Date End Date Anabelle Obrien FNP [address] [place] [address] PCP - General Family Medicine 06/02/22 Orlando Perkins MD [address] [place] [address] Cardiology 07/14/24 Pardeep Floyd [address] [place] [address] Pulmonary Disease 07/14/24 Beau Sterling MD [address] [place] [address] Nephrology 07/14/24 Nora Valdez [address] 3rd [place] [address] Gastroenterology 07/14/24 Lea Saavedra, Adelfo [address] [place] [address] Pharmacist Pharmacy 03/01/25 documented as of this encounter
--- OUTSIDE RECORDS SUMMARY | 2025-06-30 11:23 | XMS_ITS | Encounter Summary ---
Author Organization [employer] Address [address] [facility] 7t [place] [address] Care Team Providers Care Program Paraprofessional Name Role Phone Anabelle Obrien PRECIPITATOR Primary Care Provider [phone] Orlando Perkins MD Unavailable [phone] Pardeep Floyd Unavailable Beau Sterling MD Unavailable Nora Valdez Unavailable Lea Saavedra PharmD Unavailable [phone] Encounter Details Date Type Department Care Team (Late st Contact Info) Description 05/21/2023 Abstract [facility] [address] [place], [place] [phone] Syl Robert Social History Tobacco Use Types [...] 8:30 AM EST Office Visit [facility] [address] [place] [address] Anabelle Obrien FNP [address] [place] [address] 08/15/2025 11:00 AM EST Medication Management [facility] [address] [place] [address] Lea Saavedra, PharmD [address] [place] [address] documented as of this encounter Procedures Procedure [...] documented as of this encounter Care Teams Program Paraprofessional Relationship Specialty Start Date End Date Anabelle Obrien FNP [address] [place] [address] PCP - General Family Medicine 06/02/22 Orlando Perkins MD [address] [place] [address] Cardiology 07/14/24 Pardeep Floyd [address] [place] [address] Pulmonary Disease 07/14/24 Beau Sterling MD [address] [place] [address] Nephrology 07/14/24 Nora Valdez [address] 3rd [place] [address] Gastroenterology 07/14/24 Lea Saavedra, HiroD [address] [place] [address] Pharmacist Pharmacy 03/01/25 documented as of this encounter
--- OUTSIDE RECORDS SUMMARY | 2025-06-30 11:23 | XMS_ITS | Encounter Summary ---
Author Organization [employer] [facility] Address [address] [facility] 7t [place] [address] Care Team Providers Care Hemmer Lockstitch Name Role Phone Anabelle Obrien Primary Care Provider Orlando Perkins MD Unavailable Pardeep Floyd Unavailable Beau Sterling MD Unavailable Nora Valdez Unavailable Lea Saavedra PharmD Unavailable Encounter Details Date Type Department Care Team (Late st Contact Info) Description 08/28/[address] [facility] [address] [place] [address] Lilibeth Dennis LPN Social History Tobacco Use [...] Description 07/21/2025 8:30 AM EST Office Visit [facility] [address] [place], [place] [phone] Anabelle Obrien FNP [address] [place] [address] 08/15/2025 11:00 AM EST Medication Management [facility] [address] [place] [address] Lea Saavedra PharmD [address] [place] [address] documented as of this encounter Visit Diagnoses Not on filedocumented in this encounter Care Teams Hemmer Lockstitch Relationship Specialty Start Date End Date Anabelle Obrien FNP [address] [place] [address] PCP - General Family Medicine 06/02/22 Orlando Perkins MD [address] [place] [address] Cardiology 07/14/24 Pardeep Floyd [address] [place] [address] Pulmonary Disease 07/14/24 Beau Sterling MD [address] [place] [address] Nephrology 07/14/24 Nora Valdez [address]rd [place] [address] Gastroenterology 07/14/24 Lea Saavedra, PharmD [address] [place] [address] Pharmacist Pharmacy 03/01/25 documented as of this encounter
--- OUTSIDE RECORDS SUMMARY | 2025-06-30 11:23 | XMS_ITS | Encounter Summary ---
Author Organization [employer] Address 75 [facility] 7t [place] [address] Care Team Providers Care Adobe Developer Name Role Phone Anabelle Obrien SALES TEAM MEMBER Primary Care Provider [phone] Orlando Perkins MD Unavailable [phone] Pardeep Floyd Unavailable Beau Sterling MD Unavailable Nora Valdez Unavailable Lea Saavedra PharmD Unavailable [phone] Encounter Details Date Type Department Care Team (Late st Contact Info) Description 09/08/2024 Orders Only [facility] [address] [place], [place] [phone] Provider, MD Santo Social History Tobacco Use [facility] [address] [place] [address] Anabelle Obrien, SALES TEAM MEMBER [address] [place] [address] 08/15/2025 11:00 AM EST Medication Management [facility] [address] [place] [address] Lea Saavedra, PharmD [address] [place], [place] [phone] documented as of this encounter Procedures Procedure [...] documented as of this encounter Care Teams Adobe Developer Relationship Specialty Start Date End Date Anabelle Obrien FNP [address] [place] [address] PCP - General Family Medicine 06/02/22 Orlando Perkins MD [address] [place] [address] Cardiology 07/14/24 Pardeep Floyd [address] [place] [address] Pulmonary Disease 07/14/24 Beau Sterling MD [address] [place] [address] Nephrology 07/14/24 Nora Valdez [address] 3rd [place] [address] Gastroenterology 07/14/24 Lea Saavedra PharmD [address] [place] [address] Pharmacist Pharmacy 03/01/25 documented as of this encounter
--- OUTSIDE RECORDS SUMMARY | 2025-06-30 11:24 | XMS_ITS | Encounter Summary ---
Author Organization [employer] Address [address] [facility] 7t [place] [address] Care Team Providers Care Apprenticeship Representative Name Role Phone Anabelle Obrien Primary Care Provider Orlando Perkins MD Unavailable [phone] Pardeep Floyd Unavailable Beau Sterling MD Unavailable Nora Valdez Unavailable Lea Saavedra PharmD Unavailable [phone] Reason for Visit * Reason Comments Med Refill Encounter Details Date Type Department Care Team (Late st Contact Info) Description 04/01/2025 Refill [facility] [address] [place], [place] [phone] Anabelle Obrien FNP [address] [place], [place] [phone] Lumbar radiculopathy Social History Tobacco Use Types [...] 07/21/2025 8:30 AM EST Office Visit [facility] [address] [place] [address] Anabelle Obrien FNP [address] [place] [address] 08/15/2025 11:00 AM EST Medication Management [facility] [address] [place] [address] Lea Saavedra, PharmD [address] [place] [address] documented as of this encounter Visit Diagnoses Diagnosis Lumbar radiculopathy Thoracic or lumbosacral neuritis or radiculitis, unspecified documented in this encounter Additional Health Concerns Assessment Noted Time PHQ-9 Depression Total Score: 4 07/14/19 4:51 PM EST documented as of this encounter Care Teams Apprenticeship Representative Relationship Specialty Start Date End Date Anabelle Obrien FNP [address] [place] [address] PCP - General Family Medicine 06/02/22 Orlando Perkins MD [address] [place] [address] Cardiology 07/14/24 Pardeep Floyd [address] [place] [address] Pulmonary Disease 07/14/24 Beau Sterling MD [address] [place] [address] Nephrology 07/14/24 Nora Valdez [address] 3rd [place] [address] Gastroenterology 07/14/24 Lea Saavedra PharmD [address] [place] [address] Pharmacist Pharmacy 03/01/25 documented as of this encounter
--- OUTSIDE RECORDS SUMMARY | 2025-06-30 11:24 | XMS_ITS | Encounter Summary ---
Author Organization [employer] Address [address] [facility] 7t [place] [address] Care Team Providers Care Painting Instructor Name Role Phone Anabelle Obrien Primary Care Provider [phone] Orlando Perkins MD Unavailable Pardeep Floyd Unavailable Beau Sterling MD Unavailable Nora Valdez Unavailable Lea Saavedra PharmD Unavailable [phone] Encounter Details Date Type Department Care Team (Late st Contact Info) Description 06/08/2023 Orders Only [facility] [address] [place], [place] [phone] Anabelle Obrien FNP [address] [place], [place] [phone] Hypomagnesemia (Primary Dx) Social History Tobacco Use [...] 8:30 AM EST Office Visit [facility] MED & PEDS [address] [place] [address] Anabelle Obrien, STOPPERER ASSEMBLER [address] [place] [address] 08/15/2025 11:00 AM EST Medication Management [facility] MED & PEDS [address] [place] [address] Lea Saavedra, PharmD [address] [place] [address] documented as of this encounter Procedures Procedure Name Priority Date/Time Associated Diagnosis Comments MAGNESIUM Routine 07/14/2023 11:57 AM EST Hypomagnesemia documented in this encounter Results * (ABNORMAL) Magnesium (07/14/2023 11:57 AM EST) Magnesium 1.2(LL) 1.6 - 2.6 mg/dL [facility] Comment:Critical value for t est(s): MAGS Results called to and readback by: YUKI Singh Person calling: LEAT Date: 07/14/23 Time:1330 Blood Venous blood specimen / Unknown 07/14/2023 11:57 AM EST 07/14/2023 12:54 PM EST us Anabelle SURESH LAB BLOOD ORDERABLES Final Res ult [facility] [address] [place] [address] [phone] documented in this encounter Visit Diagnoses Diagnosis Hypomagnesemia- Primary Disorders of magnesium metabolism documented in this encounter Additional Health Concerns Assessment Noted Time PHQ-9 Depression Total Score: 0 04/02/20 23 10:05 AM EDT documented as of this encounter Care Teams Painting Instructor Relationship Specialty Start Date End Date Anabelle Obrien FNP [address] [place] [address] PCP - General Family Medicine 06/02/22 Orlando Perkins MD [address] [place] [address] Cardiology 07/14/24 Pardeep Floyd 5 [place] [address] Pulmonary Disease 07/14/24 Beau Sterling MD [address] [place] [address] Nephrology 07/14/24 Nora Valdez [address] 3rd [place] [address] Gastroenterology 07/14/24 Lea Saavedra PharmD [address] [place] [address] Pharmacist Pharmacy 03/01/25 documented as of this encounter
--- OUTSIDE RECORDS SUMMARY | 2025-06-30 11:24 | XMS_ITS | Encounter Summary ---
Author Organization [employer] Address 75 [facility] 7t [place] [address] Care Team Providers Care Front Office Agent Name Role Phone Anabelle Obrien Primary Care Provider [phone] Orlando Perkins MD Unavailable [phone] Pardeep Floyd Unavailable Beau Sterling MD Unavailable Nora Valdez Unavailable Lea Saavedra PharmD Unavailable [phone] Encounter Details Date Type Department Care Team (Late st Contact Info) Description 10/31/2022 Orders Only [facility] MEDICINE [address] [place] [address] Vanessa Nam LPN Social History Tobacco Use [...] 8:30 AM EST Office Visit [facility] MED & PEDS [address] [place] [address] Anabelle Obrien FNP [address] [place] [address] 08/15/2025 11:00 AM EST Medication Management [facility] MED & PEDS [address] [place] [address] Lea Saavedra PharmD [address] [place] [address] documented as of this encounter Visit Diagnoses Not on filedocumented in this encounter Care Teams Front Office Agent Relationship Specialty Start Date End Date Anabelle Obrien FNP [address] [place] [address] PCP - General Family Medicine 06/02/22 Orlando Perkins MD [address] [place] [address] Cardiology 07/14/24 Pardeep Floyd 5 [place] [address] Pulmonary Disease 07/14/24 Beau Sterling MD [address] [place] [address] Nephrology 07/14/24 Nora Valdez [address] 3rd [place] [address] Gastroenterology 07/14/24 Lea Saavedra, Adelfo [address] [place] [address] Pharmacist Pharmacy 03/01/25 documented as of this encounter
--- OUTSIDE RECORDS SUMMARY | 2025-06-30 11:24 | XMS_ITS | Encounter Summary ---
Author Organization [employer] Address 75 [facility] 7t [place] [address] Care Team Providers Care Dredge Captain Name Role Phone Anabelle Obrien LOGGING TRUCK DRIVER Primary Care Provider [phone] Orlando Perkins MD Unavailable [phone] Pardeep Floyd Unavailable Beau Sterling MD Unavailable Nora Valdez Unavailable Lea Saavedra PharmD Unavailable [phone] Encounter Details Date Type Department Care Team (Late st Contact Info) Description 11/03/2022 Orders Only [facility]EDS [address] [place] [address] Lilibeth Dennis LPN Social History Tobacco Use [...] 07/21/2025 8:30 AM EST Office Visit [facility] [place] MED & PEDS [address] [place] [address] Anabelle Obrien FNP [address] [place] [address] 08/15/2025 11:00 AM EST Medication Management [facility] [place] MED & PEDS [address] [place] [address] Lea Saavedra PharmD [address] [place] [address] documented as of this encounter Visit Diagnoses Not on filedocumented in this encounter Care Teams Dredge Captain Relationship Specialty Start Date End Date Anabelle Obrien FNP [address] [place] [address] PCP - General Family Medicine 06/02/22 Orlando Perkins MD [address] [place] [address] Cardiology 07/14/24 Pardeep Floyd [address] [place] [address] Pulmonary Disease 07/14/24 Beau Sterling MD [address] [place] [address] Nephrology 07/14/24 Nora Valdez [address] 3rd [place] [address] Gastroenterology 07/14/24 Lea Saavedra, Adelfo [address] [place] [address] Pharmacist Pharmacy 03/01/25 documented as of this encounter
--- OUTSIDE RECORDS SUMMARY | 2025-06-30 11:24 | XMS_ITS | Clinical Summary ---
Author Organization [employer] Address 75 [facility] 7t [place] [address] Care Team Providers Care Relocation Coordinator Name Role Phone Anabelle Obrien Primary Care Provider [phone] Orlando Perkins MD Unavailable Pardeep Floyd Unavailable [...] tabletIndication s:Essential hypertension,Par oxysmal atrial fibrillation (CMS/HCC) ([facility]) TAKE 1 TABLET BY MOUTH TWICE [...] obstructive pulmonary disease, unspecified COPD type (CMS/HCC) ([facility]) INHALE 1 PUFF BY MOUTH EVERY DAY AT THE SAME TIME RINSE MOUTH AFTER USING 30 each 06/16/20 25 5:39 PM EST Active OneTouch Ultra Test test stripIndications :Type 2 diabetes mellitus with hyperglycemia, without long-term current use of insulin ([facility]) USE DIRECTED TO TEST BLOOD SUGAR FOUR TIMES DAILY 100 strip 06/16/20 25 5:39 PM EST Active Lancets (OneTouch Delica Plus [id number]) miscIndications: Type 2 diabetes mellitus with hyperglycemia, without long-term current use of insulin ([facility]) USE DIRECTED TO TEST BLOOD SUGAR FOUR TIMES DAILY 100 each 06/16/20 25 5:39 PM EST Active Blood Glucose Monitoring Suppl (ONE TOUCH ULTRA 2) w/Device kitIndications:T ype 2 diabetes mellitus with hyperglycemia, with long-term current use of insulin ([facility]) USE TO CHECK BLOOD SUGAR FOUR [...] obstructive pulmonary disease, unspecified COPD type (CMS/HCC) ([facility]) INHALE 1 PUFF BY MOUTH TWICE DAILY, RINSE MOUTH AFTER USING. 60 each 3 06/16/20 25 5:39 PM EST 025 Active Embecta Pen Needle Samantha 32G X 4 MM misc USE DIRECTED TO INJECT INSULIN 100 each 11 05/18/20 25 4:03 PM EST 025 Active empagliflozin (Jardiance) 25 MGIndications:Ty pe 2 diabetes mellitus with hyperglycemia, with long-term current use of insulin ([facility]) Take 1 tablet (25 mg) by mouth Once per day. 30 tablet 5 06/16/20 25 5:38 PM EST 025 Active insulin glargine (Lantus SoloStar) 100 UNIT/ML penIndications:T ype 2 diabetes mellitus with hyperglycemia, with long-term current use of insulin ([facility]) Inject 17 units subcutaneously every night 15 mL 1 06/16/20 25 5:38 PM EST 025 Active FLUoxetine (PROzac) 40 MG capsuleIndicatio ns:Dysthymic disorder TAKE 1 CAPSULE BY MOUTH EVERY MORNING 90 capsule 3 025 Active Calcium Carb-Cholecalcif matthias 600-10 MG-MCG tabletIndication s:Type 2 diabetes mellitus treated with insulin ([facility]) TAKE 1 TABLET BY MOUTH EVERY [...] cleanup (will not trigger notification to Pharmacy)) meclizine (Antivert) 25 MG tabletIndication s:Dizziness TAKE 1/2 TABLET BY MOUTH THREE TIMES DAILY IN THE MORNING, AT NOON, AND AT BEDTIME NEEDED FOR DIZZINESS 30 tablet 2 024 2024 Discontinued(M ed list cleanup (will not trigger notification to Pharmacy)) Magnesium 400 MG capsule Take 400 mg by mouth Once per day. 90 capsule 1 025 2024 Discontinued(M ed list cleanup (will not trigger notification to Pharmacy)) ferrous gluconate (Fergon) 324 (38 Fe) MG [...] acute brain abnormality. September 2024: consult at [facility]. Per consult, does not exhibit [...] neck Plan: excision/removal by Dr. Witt - [facility] Surgery - following discussion w/ cards regarding Eliquis Adenoma of colon 01/15/2024 Overview (01/15/2024): Family history of colon CA Following with [facility] GI Last colonoscopy 2021, plan for [...] w/ mag supplement. Referred to Nephrology 09/15/23: [facility] - Dr. Beau Sterling. [...] OPH: January 2023 w/ Dr. Allison at [facility]. (+) proliferative diabetic retinopathy. Plan for follow up in 1 year. Colonoscopy: 06/13/24 at [facility]. 1 polyp removed. Repeat in 5 years. Paroxysmal atrial fibrillation (CMS/HCC) 023 Assessment & Plan (07/14/2024 4:35 PM EST): [facility] Previous medication: verapamil 120mg in the AM Afib during hospitalization in Feb 2024 - possibly triggered by diarrhea and electrolyte imbalance Continues on Eliquis 5mg BID and metoprolol 100mg BID Assessment & Plan (03/07/2024 11:53 AM EDT): [facility] Previous medication: verapamil 120mg in the AM Confirm discontinuation with Cards Afib during hospitalization in Feb 2024 - possibly triggered by diarrhea and electrolyte imbalance Continues on Eliquis 5mg BID and metoprolol 50mg BID Assessment & Plan (01/15/2024 11:22 AM EDT): [facility] Continues with verapamil 120mg in the AM Adenocarcinoma of left lung (CMS/HCC) 11/09/2022 Overview (12/07/2024): Lung CA screening completed 10/14/22 at [facility]. Ordered by Crystal CHANDLER Pack year [...] CONTINUE TO FOLLOW-UP WITH DR. HARRIS 09/29/23: [facility] CT Chest w/o contrast (Dr. Harris) - impression: surgical changes in the left chest without evidence of recurrent disease. 03/28/24: [place] CT Chest (Dr. Harris) - Impression: Left lower lobectomy. Small amount of loculated pleural fluid at the left base which appears similar to the previous study. No suspicious pulmonary nodule. Stable borderline enlarged mediastinal lymph node. 09/05/2024: CT scan completed at [facility]. Impression-left lower lobectomy sequela. No suspicious [...] Plan (12/07/2024 4:40 PM EDT): [facility] - Dr. Perkins. Continues on cilostazol 50mg [...] Plan (01/15/2024 11:24 AM EDT): Following with [facility] - Dr. Perkins. Continues on [...] stopped using d/t frequent beeping Established with [facility] Assessment & Plan (03/16/2025 [...] Following closely with Cards. Followed by Dr. Perikns Jul 2023: Nuclear stress test. Impression: probably [...] lung disease 08/10/2014 Overview (12/07/2024): Following with [facility] Pul - Dr. Floyd Continues with fluticasone-salmeterol 250-50 1inh BID, Ellipta daily, proair PRN. Reports breathing well controlled on current regimen. May use supplemental oxygen: 2L/min if doing physical activity or exerting herself (orders through [facility]) (6 min walk test Apr [...] left lung (CMS/HCC) 04/02/2005/13/2023 Overview (04/02/2023): 03/31/23: [place] Thoracic surgery follow up. Respiratory therapy performed [...] Care Team Description 06/21/2025 Travel 05/31/2025 Refill [facility] MEDICINE [address] [place] [address] Anabelle Obrien FNP Dysthymic disorder; Type 2 diabetes mellitus treated with insulin (HCC) 05/26/2025 Travel 05/24/2025 Orders Only [facility]S [address] [place] [address] Pamela Houston MD Type 2 diabetes mellitus with hyperglycemia, without long-term current use of insulin (HCC) (Primary Dx) 05/23/2025 Telephone [facility] MED & PEDS [address] [place] [address] Lea Saavedra PharmD 05/10/2025 Refill [facility] MEDICINE [address] [place] [address] Anabelle Obrien FNP 05/06/2025 Refill [facility]S [address] [place] [address] Dimitry Gary MD Chronic obstructive pulmonary disease, unspecified COPD type (CMS/HCC) (HCC) 04/13/2025 Refill [facility] MEDICINE [address] [place] [address] Anabelle Obrien FNP Lumbar radiculopathy; Low ferritin level 04/07/2025 Travel 04/04/2025 3:15 PM EDT Office Visit [facility] OPTOMETRY [address] [place] [address] Katarina Shields, OD Type 2 diabetes mellitus with stable proliferative retinopathy of both eyes, without long-term current use of insulin ([facility]) (Primary Dx); Presbyopia 04/04/2025 Travel 04/01/2025 Refill [facility] [address] [place], [place] [phone] Anabelle Obrien FNP Lumbar radiculopathy from Last 3 Months Immunizations Immunization Administration [...] 8:30 AM EST Office Visit [facility] P[facility] [address] [place], [place] [phone] Anabelle Obrien, ORGANIZATION DEVELOPMENT CONSULTANT [address] [place], [place] [phone] 08/15/2025 11:00 AM EST Medication Management [facility] [address] [place], [place] [phone] Lea Saavedra, PharmD [address] [place], [place] [phone] Health Maintenance Due Date Last Done Comments [...] Td or Tdap) 08/10/2024 08/10/2014 COVID-19 Vaccine (4 - season) 2025 09/09/2021, 11/28/2020, 10/31/2020 Influenza Vaccine (#1) 2025 08/10/2014 Alcohol/Substance Use Screening 07/11/2025 07/11/2024 Depression Screening 07/14/2025 07/14/2024, 07/14/19 25 Diabetes: Hemoglobin A1C 08/26/2025 025, 03/01/2025, 12/07/2024, Additional history exists Lipid [...] their type 2 diabetes No Lea Saavedra, Adelfo Weekly blood pressure task Care Plan Weekly blood pressure task No Lea Saavedra, PharmCedric Help patients manage their type 2 [...] hyperglycemia, with long-term current use of insulin ([facility]) PROTEIN CREATININE RATIO, URINE Routine 03/23/2025 12:39 PM EDT BI MAMMOGRAM SCREENING TOMOSYNTHESIS BILATERAL Routine 02/23/2025 11:10 AM EDT LIPID PANEL, STANDARD Routine 01/13/2025 1:19 PM EDT Type 2 diabetes mellitus with hyperglycemia, without long-term current use of insulin ([facility]/HCC) Healthcare maintenance HM COLONOSCOPY Routine 06/13/2024 4:01 PM EST HEPATITIS C VIRAL RNA, QUANTITATIVE, REAL-TIME PCR Routine 04/23/2023 9:05 AM EDT Healthcare maintenance from Last 3 Months or Most Recently Relevant to Health Maintenance Results * (ABNORMAL) POCT A1c (05/26/2025 11:10 AM EST) Hemoglobin A1C 11.6(A) 4.0 - 5.7 % QC Media Lot # [id number] Lot# Expiration Date Blood 05/26/2025 11:1 0 AM EST us Anabelle Phalen ORGANIZATION DEVELOPMENT CONSULTANT POINT OF CARE TEST ENTER/EDIT ORDERABLES Final Result * Protein Creatinine Ratio, Urine (03/23/2025 12:39 PM EDT) Creatinine, Urine 33.63 mg/dL [facility] Protein, Total, Random Urine <7 <12 mg/dL [facility] Protein/Creatin ine Ratio, Ur TNP <0.2 [facility] Comment:Unable to calculate urine protein creatinine ratio due tolow creatinine or protein result. 03/23/2025 12:3 9 PM EDT 03/23/2025 5:54 PM EDT Generic External Data Provider LAB URINE ORDERAB LES Final Result [facility] [address] [place], [place] [phone] * BI Mammogram Screening Tomosynthesis Bilateral (02/23/2025 11:10 AM EDT) Anatomical Region Laterality Modality Breast Bilateral Mammography 02/23/2025 11:1 0 AM EDT Narrative 02/27/2025 3:33 PM EDT [facility] [address] [place] [address] [place] [address] Mammography Report Signed Patient: Tete Ayon MR#: [id number] : 1955 Acct:[id number] Age/Sex: 69 / F ADM Date: 02/23/25 Loc: HOJoseMAMMO Attending Dr: Anabelle Obrien ORGANIZATION DEVELOPMENT CONSULTANT Ordering Physician: Anabelle Obrien Results: 1Negat pranay Date of Service: 02/23/25 Follow Up: 1 Year From [facility] ina Mammogram Procedure(s): MM tomosynthesis screening BI Accession Number(s): [id number] cc: Anabelle Obrien ORGANIZATION DEVELOPMENT CONSULTANT EXAMINATION: MM SCREENING DIGITAL BREAST TOMOSYNTHESIS, BILATERAL [...] 02/27/25 1530 DD/ 1110 TD/TT: 02/23/25 1120 Kettle Operator Head: Procedure Note Donotuseinterpreter, Image - 02/27/2025 Eric[facility] [address] [place] [address] Mammography Report Signed Patient: Johnny Ayon#: [id number] : 4Acct:[id number] Age/Sex: 69 / FADM Date: 02/23/25 Loc: MAMMO Attending Dr: Anabelle Obrien ORGANIZATION DEVELOPMENT CONSULTANT Ordering Physician: Anabelle Obrien FNPResults: 1Negat pranay Date of Service: 02/23/25Follow Up: 1 Year From Orig inal Mammogram Procedure(s): MM tomosynthesis screening BI Accession Number(s): [id number] cc: Anabelle Obrien ORGANIZATION DEVELOPMENT CONSULTANT EXAMINATION: MM SCREENING DIGITAL BREAST TOMOSYNTHESIS, BILATERAL [...] 02/27/25 1530 DD/ 1110 TD/TT: 02/23/25 1120 Kettle Operator Head: Anabelle Obrien ORGANIZATION DEVELOPMENT CONSULTANT IMG BI PROCEDURES Final Result * Lipid Panel, Standard (01/13/2025 1:19 PM EDT) Triglycerides 130 <150 mg/dL [facility] Comment:Desirable Triglyceri de: less than 150 mg/dLBorderline High Triglyceride 150-199 mg/dLHigh Triglyceride: 200-499 mg/dLVery High Triglyceride: greater than or equal to 5OO mg/dL Cholesterol 136 <200 mg/dL [facility] Comment:Desirable Cholestero l: less than 200 mg/dLBorderline High Cholesterol: 200-239 mg/dLHigh Cholesterol: greater than 239 mg/dL LDL Cholesterol Calculated 58 <100 mg/dL [facility] Comment:Desirable LDL: less than 100 mg/dLNear Optimal/Above Optimal LDL: 110- 129 mg/dLBorderline High LDL: 130-159 mg/dLHigh LDL: 160-189 mg/dLVery High LDL: greater than or equal to 190 mg/dL HDL Cholesterol 52 >40 mg/dL [facility] Comment:Desirable HDL: great er than 40 mg/dL Note: This HDL assay may give artificially low results in patients with liver disease. Blood Venous blood specimen / Unknown 01/13/2025 1:19 PM EDT 01/13/2025 3:55 PM EDT Anabelle Obrien ORGANIZATION DEVELOPMENT CONSULTANT LAB BLOOD ORDERABLES Final Res ult [facility] [address] [place] [address] [phone] * Colonoscopy (06/13/2024 4:01 PM EST) Historical Provider HEALTH MAINTENANCE Final Result * Hepatitis C Viral RNA, Quantitative, Real-Time PCR (04/23/2023 9:05 AM EDT) Hepatitis C Viral Load <15 NOT DETECTED NOT DETECTED IU/mL [facility] HCV Log PCR <1.18 NOT DETECTED NOT DETECTED Log IU/mL [facility] Comment:This test was perfor med using Real-Time Polymerase ChainReaction.Reportable Range: 15 IU/mL to 100,000,000 IU/mL(1.18 Log IU/mL to 8.00 Log IU/mL).The analytical performance characteristics of thisassay have been determined by [employer].The modifications have not been cleared or approved bythe FDA. This assay has been validated pursuant to theCLIA regulations and is used for clinical purposes.For more information on this test, go to:http://education.ImageSpike/faq/DCK16c2(This link is being provided for informational/educational purposes only.)THIS TEST WAS PERFORMED AT:[id number] [place] [id number] COLLAZO MD Blood 04/23/2023 9:05 AM EDT 04/23/2023 11:11 AM EDT us Anabelle Obrien ORGANIZATION DEVELOPMENT CONSULTANT LAB BLOOD ORDERABLES Final Res ult [facility] [address] [place] [address] [phone] from Last 3 Months or Most [...] Patient has chronic kidney disease 06/21/[address] [place] [address] [facility] [employer] (HMO D-SNP) GERALDINE [place] [id number] Care Teams Relocation Coordinator Relationship Specialty Start Date End Date Anabelle Obrien FNP [address] [place] [address] PCP - General Family Medicine 06/02/22 Orlando Perkins MD [address] [place] [address] Cardiology 07/14/24 Pardeep Floyd [address] [place] [address] Pulmonary Disease 07/14/24 Beau Sterling MD [address] [place] [address] Nephrology 07/14/24 Nora Valdez [address] 3rd [place] [address] Gastroenterology 07/14/24 Lea Saavedra PharmD [address] [place] [address] Pharmacist Pharmacy 03/01/25
--- OUTSIDE RECORDS SUMMARY | 2025-06-30 11:24 | XMS_ITS | Encounter Summary ---
Author Organization [employer] Address [address] [facility] 7t [place] [address] Care Team Providers Care Chef Instructor Name Role Phone Anabelle Obrien Primary Care Provider Orlando Perkins MD Unavailable Pardeep Folyd Unavailable Beau Sterling MD Unavailable Nora Valdez Unavailable Lea Saavedra PharmD Unavailable [phone] Reason for Visit * Reason Comments Med Refill Encounter Details Date Type Department Care Team (Late st Contact Info) Description 01/18/2024 Refill [facility] MEDICINE [address] [place] [address] Anabelle Obrien FNP [address] [place], [place] [phone] Type 2 diabetes mellitus with hyperglycemia, without long-term current use of insulin (CMS/[facility]) (Primary Dx) Social History Tobacco Use Types [...] the past 12 months, has t he [employer], [employer], oil or water Navigating [employer] threatened to shut off services in your [...] 8:30 AM EST Office Visit [facility] MED & PEDS [address] [place] [address] Anabelle Obrien FNP [address] [place] [address] 08/15/2025 11:00 AM EST Medication Management [facility] MED & PEDS [address] [place] [address] Lea Saavedra, PharmD [address] [place] [address] documented as of this encounter Visit Diagnoses Diagnosis Type 2 diabetes mellitus with hyperglycemia, without long-term current use of insulin (HCC)- Primary documented in this encounter Additional Health Concerns Assessment Noted Time PHQ-9 Depression Total Score: 0 04/02/20 23 10:05 AM EDT documented as of this encounter Care Teams Chef Instructor Relationship Specialty Start Date End Date Anabelle Obrien FNP [address] [place] [address] PCP - General Family Medicine 06/02/22 Orlando Perkins MD [address] [place] [address] Cardiology 07/14/24 Pardeep Floyd [address] [place] [address] Pulmonary Disease 07/14/24 Beau Sterling MD [address] [place] [address] Nephrology 07/14/24 Nora Valdez [address] 3rd [place] [address] Gastroenterology 07/14/24 Lea Saavedra PharmD [address] [place] [address] Pharmacist Pharmacy 03/01/25 documented as of this encounter
--- OUTSIDE RECORDS SUMMARY | 2025-06-30 11:24 | XMS_ITS | Encounter Summary ---
Author Organization [employer] Address [address] [facility] [address] [place] [address] Care Team Providers Care Dog Hair Clipper Name Role Phone Anabelle Obrien SHOT EXAMINER Primary Care Provider [phone] Orlando Perkins MD Unavailable [phone] Pardeep Floyd Unavailable Beau Sterling MD Unavailable Nora Valdez Unavailable Lea Saavedra PharmD Unavailable [phone] Encounter Details Date Type Department Care Team (Late st Contact Info) Description 03/28/2025 Orders Only [facility] Management [address] [place], [place] [phone] Provider, MD [place] Social History Tobacco Use [...] Description 07/21/2025 8:30 AM EST Office Visit [facility] [address] [place] [address] Anabelle Obrien FNP [address] [place] [address] 08/15/2025 11:00 AM EST Medication Management [facility] [address] [place] [address] Lea Saavedra, PharmD [address] [place] [address] documented as of this encounter Procedures Procedure [...] documented as of this encounter Care Teams Dog Hair Clipper Relationship Specialty Start Date End Date Anabelle Obrien FNP [address] [place] [address] PCP - General Family Medicine 06/02/22 Orlando Perkins MD [address] [place] [address] Cardiology 07/14/24 Pardeep Floyd [address] [place] [address] Pulmonary Disease 07/14/24 Beau Sterling MD [address] [place] [address] Nephrology 07/14/24 Nora Valdez [address] 3rd [place] [address] Gastroenterology 07/14/24 Lea Saavedra PharmD [address] [place] [address] Pharmacist Pharmacy 03/01/25 documented as of this encounter
--- OUTSIDE RECORDS SUMMARY | 2025-06-30 11:24 | XMS_ITS | Data Portability ---
Author Organization [employer] [facility] Address [address] [place] [id number] Care Team Providers Care Patient Care Provider Name Role Phone HIM CCA OTHER Assessment Encounter Date Assessment Date Assessment LastModified by Organization Details LastModified Time 12/21/2023 12/21/2023 I provided real -time medical direction via phone for this encounter, and was available for additional phone based assistance as needed. I have reviewed and agree with the Assessment and Plan as documented by the Nut Grader. We discussed the diagnostic uncertainty of home visits and the risk associated with this. Diabetics can have silent ischemia, we have no old records nor does patient have access to old EKG so her EKG is considered ischemic until proven otherwise. Advised need for evaluation for cardiac/MARKETER event in the ER emergently the patient/family given the opportunity to ask questions. Patient understood rationale for going to the ER via EMS/report called to [facility] spoke to ED physician aaron Not available 12/21/2023 15:04:08 Plan of Treatment Reminders Order Date Submit Date Provider Last Modified By Organization Details Last Modified Time Details Appointments None recorded. Lab rapid SARS CoV 2 Ag, QL IA, respiratory specimen [email or web address] [facility], [address] [place] [address], [id number] 4 15:07:34 rapid flu (A+B) 2023 [email or web address], [phone] 4 15:07:32 BMP, serum or plasma 2023 024 [email or web address], [id number] 4 15:07:07 Referral None recorded. Procedures None recorded. Surgeries None recorded. Imaging electrocard iogram 2023 024 [email or web address], [address] [place] [address] 4 15:07:05 Medication Orders sodium chloride 0.9 % intravenous solution 2023 024 [email or web address] 0 Not available 15:07:06 Patient TargetsNo targets recorded. Patient InstructionsNo instructions recorded. Reason for Referral None Reported. Results Created Date Observation Date Name Description Value Unit Range Abnormal Flag Note LastModifiedBy Organization Detail LastModifiedTime 12/21/19 24 12/21/2023 rapid flu (A+B) Flu negati ve Not Available [facility] ed [address] [place] [address], [address] [place] [address] 12/21/2023 15:07:14 12/21/19 24 12/21/2023 rapid SARS CoV 2 Ag, QL IA, respi rator y speci men rapid SARS CoV 2 Ag, QL IA, respiratory specimen negati ve Not Available [facility] ed [address] [place] [address], [address] [place] [address] 12/21/2023 15:07:12 12/21/19 24 12/21/2023 BMP, serum or plasm a GLU 363 Not Available [address], [address] [place] [address] 12/21/2023 14:57:23 12/21/19 24 12/21/2023 elect rocar diogr am No observ ation record ed. [email or web address] [address], [address] [place] [address] 12/21/2023 15:07:00 Result Notes None recorded. Medical [...] Available No t Available [employer] [facility] [address] [place] USE DIRECTED TO TEST BLOOD SUGAR EVERY 8 HOURS active Not Available Not Available No t Available Vitals Date Recorded Body temperature Heart rate Body weight Oxygen saturation Respiratory rate Body height Systolic And Diastolic Systolic And Diastolic Provider Name and Address Organization Details Last Updated DateTime 4 98.9 [degF] 78 /min 39525.3 36 g 95 % 14 /min 165.1 cm 115/65 [...] Diagnosis SNOMED-CT Code Diagnosis ICD10 Code Diagnosis IMO Codes Diagnosis Note [id number] Rafaela Ponce MD Main - [facility] [address] [place] [phone] 12/21/2023 14:44:16 12/21/2023 23:20:59 Dizziness [id number] R42 pat has recently been seen by cardiology and had an echo, the daughter is reporting what sounds like a low EF. BMP primarily concerning for hypoglycem ia ordered 500 cc of normal saline since EF unknownWit h the dizziness although neuro exam was non-focal she could still be having a posterior circulatio n CVA which we cannot workup at home Cough [id number] R05.9 Health Concerns Section Related Observation LastModified by Organization Detai ls LastModified Time None Recorded Concern Status LastModified by Organization Details LastModified Time None Recorded Advance Directives Directive None Recorded Payers Insurance Date Sequence Insurance Name Policy Number Policy Pal[place]ios Covered Member ID Palacios Member ID Guarantor Name 12/21/2023 1 [facility] - DOS ON OR AFTER 2022 - DUAL ELIGIBLE - DETENTION OPTIONS AND ONE CARE (MEDICARE REPLACEMENT/ADV ANTAGE - HMO) Dyan aparicio [id number] Dyan cheek Notes Date Note Type Note Provider Name and Address Organization Details Recorded Time 12/21/2023 text/html ROS as noted in the HPI CRC Nurse Triage Notes (Kristel Hirsch): Reason [...] without difficulty. Daughter would like member evaluated. Nut Grader POC Test Results from Eldon Mercado [facility] (14:50:20) pH: 7.42 pH units pCO2: 41.1 mmHg pO2: 45.5 mmHg Na: 137 mmol/L K: 4.3 mmol/L iCa: 1.10 mmol/L Cl: 97 mmol/L TCO2: 26.5 mEq/L Hct: 33 % Hb: 11.2 g/dL Glu: 363 mg/dL Lac: 2.5 mmol/L Cr: 0.9 mg/dL BUN: 20 mg/dL A Nut Grader POC Test Results from Eldon Mercado [facility] Rapid COVID antigen (::19) COVID: - Rapid influenza antigen (::) Flu: - ................... ................... ................... ................... ................... ................... ................... ........ Nut Grader Note From Eldon Mercado: Pt reports dizziness with standing/movement since Thursday. Pt sts she has had a dry cough since Thursday. Pt denies CP, SOB, MARIE, MATHIS, blurred vision, f/n/v/d. Pt is alert, NAD. Orthostatic BP, VS otherwise stable. Afebrile. Non focal neuro exam. Lungs CTA. Benign ABD exam. No LE edema. Rapid covid and flu negative. EKG and labs uploaded. [facility] recommends pt be transported to the ED. 911 initiated for transport to [facility]. 500 cc of normal saline administered prior to transport. SBAR to [facility]URAND. ................... ................... ................... ................... ................... ................... ................... ........ Disposition: Fulfilled Rafaela Ponce MD [address] [facility],[address], [place], [address], [facility] [place] 12/21/2023 16:55:43 OBGyn Episode No OBEpisode recorded.
== END 2025-06-30 11:50 | disposition home or self-care (01) ==
PROVIDERS: PCP Registered Nurse; Visit Provider Internal Medicine Nephrology
DX: N18.31 Chronic kidney disease, stage 3a (principal); I10 Essential (primary) hypertension
CPT/HCPCS: 99214

== ENCOUNTER → 2025-06-30 11:20 | Outpatient (BNVA) | payer OTHER, SELFPAY | PROVIDERS: PCP Registered Nurse; Visit Provider Internal Medicine Nephrology | DX: I12.9 Hypertensive chronic kidney disease with stage 1 through stage 4 chronic kidney disease, or unspecified chronic kidney disease (principal); E11.22 Type 2 diabetes mellitus with diabetic chronic kidney disease; N18.31 Chronic kidney disease, stage 3a; Z79.899 Other long term (current) drug therapy; Z79.84 Long term (current) use of oral hypoglycemic drugs | CPT/HCPCS: 99212 ==